=== PATIENT | male | born 1970 | race Caucasian/White ===

== ENCOUNTER 2020-12-17 15:30 | Observation (INO) | payer OTHER, SELFPAY ==
[2020-12-17] VITALS (10 sets, daily range): BP systolic 132–165; BP diastolic 74–99; PULSE 72–84; RESP 15–20; TEMP 36.7–36.9; O2SAT 96–100; BMI 38.0
--- NOTE | ~2020-12-17 | XR_ITS ---
XR chest 1V DATE: 12/17/2020 16:59 INDICATION: Dizziness TECHNIQUE: AP view COMPARISON: 11/10/2014 2 view chest FINDINGS: Normal heart size. No hilar or mediastinal enlargement. No pulmonary infiltrate or consol idation, pulmonary vascular congestion or pleural effusion or pneumothorax. IMPRESSION: No active cardiopulmonary disease Reviewed, dictated and finalized at location B.
--- NOTE | ~2020-12-17 | CT_ITS ---
EXAMINATION: CT brain wo con EXAM DATE: 12/17/2020 16:52 INDICATION: Seizures and headache. Dizziness. TECHNIQUE: Spiral CT of the head was performed without contrast. Axial, coronal and sagittal images were reviewed. The dose-length product (DLP) for this examination was 681.00 mGy-cm. The exposure w as tailored according to patient size, and iterative reconstruction (ASIR) was used as additional dos e reduction technique. Comparison is made to prior examination from 07/02/2019. FINDINGS: There is no acute intraparenchymal hemorrhage. No evidence of intraparenchymal brain mass lesion. No evidence of acute infarction. There is no mass effect or midline shift. The ventricles are normal in size. There are no extra-axial collections. There are no acute calvarial fractures. T he orbits are unremarkable. Soft tissue is unremarkable. The visualized sinuses and mastoid air joe ls are well aerated. IMPRESSION: 1. No acute intracranial findings. Reviewed, dictated and finalized at location A.
[2020-12-17 15:37] LABS: Glucose Point of Care 386 mg/dl (65-105)
--- NOTE | 2020-12-17 15:51 | ECG_ITS ---
Measurements Intervals [place] Rate: 82 P: 31 GA: 171 QRS: -11 QRSD: 149 T: 14 QT: 383 QTc: 448 Interpretive Statements SINUS RHYTHM RIGHT BUNDLE BRANCH BLOCK BASELINE ARTIFACT- I, II, III, AVR, AVL, AVF, V2-V6 ABNORMAL ECG Electronically Signed On 12-17-2020 15:53:34 CDT by Goran Dodson D.O.
--- NOTE | 2020-12-17 15:51 | ED.SEIZURE ---
HPI - Seizure General Chief Complaint: Seizure Stated Complaint: Heat Exposure Time Seen by Provider: 12/17/20 15:47 Source: patient, family and RN notes reviewed Mode of arrival: wheelchair Limitations: no limitations History of Present Illness HPI Narrative: This is a 50 year old male with history of nonepileptic seizure, DM, PTSD who presents for evaluation of seizures. Patient's states patient was out boating today for 4 hours. She states she received a call from him stating he did not feel well. She states he was having nausea and vomiting. Staff was called out to his car and they states he was having seizure activity. They also states patient had another seizure once he got back to his room. They states patient was briefly unresponsive but started talking to them immediately. His states he has history of nonepileptic seizures that he has been evaluated for. She also reports he has chronic pain. Seizure History: Yes Related Data Home Medications Medication Instructions Recorded Confirmed acetaminophen 1,000 mg PO Q8-10H PRN 07/02/19 aspirin 81 mg PO DAILY 07/02/19 diclofenac sodium [Diclo Gel] 4 g TOPICAL QID 07/02/19 insulin glulisine U-100 75 unit SUBCUT DAILY 07/02/19 lactulose 20 g PO DAILY 07/02/19 liraglutide [Victoza 2-Felix] 1.8 mg SUBCUT DAILY 07/02/19 lovastatin 40 mg PO DAILY 07/02/19 metformin 2,000 mg PO 07/02/19 paroxetine HCl 30 mg PO QAM 07/02/19 prazosin 2 mg PO HS 07/02/19 risperidone [Risperdal] 0.25 mg PO DAILY 07/02/19 sildenafil 50 mg PO WEEKLY PRN 07/02/19 trazodone 200 mg PO HS 07/02/19 Allergies Allergy/AdvReac Type Severity Reaction Status Date / Time atorvastatin Allergy Unknown Verified 07/02/19 09:40 carvedilol [From Coreg] Allergy Unknown Verified 07/02/19 09:40 niacin Allergy Unknown Verified 07/02/19 09:40 [From Niaspan Extended-Release] pravastatin Allergy Unknown Verified 07/02/19 09:40 rosuvastatin Allergy Unknown Verified 07/02/19 09:40 simvastatin Allergy Unknown Verified 07/02/19 09:40 Shrimp Allergy Intermediate SWELLING Uncoded 07/02/19 09:40 HIVES Review of Systems Review of Systems: All systems reviewed & are unremarkable except as noted in HPI and below Constitutional: Constitutional: Denies chills, Reports fatigue and Denies fever(s) Cardiovascular: Cardiovascular: Denies chest pain Respiratory: Respiratory: Denies cough and Denies dyspnea Gastrointestinal: Gastrointestinal: Reports abdominal pain (from vomiting), Reports nausea and Reports vomiting Neurologic: Reports syncope and Reports headache(s) [facility] Past Medical History Medical History Angina at rest Anxiety Arthritis Back pain Depression Diverticulitis GERD (gastroesophageal reflux disease) Hypertension Kidney stones Liver disease PTSD (post-traumatic stress disorder) Seizures Sleep apnea Type 2 diabetes mellitus Surgical History Surgical History H/O inguinal hernia repair History of partial colectomy Social History Social History (Updated 07/02/19 @ 09:05 by Norma Jalloh) Smokeless tobacco user: chewing tobacco Exam Const: General: alert Other: oriented to person and place HENMT: Head: normocephalic and atraumatic Mouth: Yes Normal oral and palatal mucosa present, Yes lip normal, Yes oropharynx normal and Yes moist mucous membranes Eyes: EOM: EOMs intact bilaterally Chest: Chest palpation & inspection: normal inspection of the chest Resp: Effort & Inspection: normal respiratory effort and no retractions Auscultation: clear to auscultation bilaterally Cardio: Rate: regular rate Rhythm: regular rhythm Heart sounds: no murmurs GI: GI Palp: Yes Soft to palpation, No Tenderness to palpation present (GI) and No Guarding due to palpation present (GI) Auscultation: normal bowel sounds Back/Spine/Pelvis: B
[2020-12-17] MEDS: ONDANSETRON INJ 4 MG/2 ML VIAL IV PUSH (16:04)
[2020-12-17] MEDS: SODIUM CHLORIDE 0.9% IV 1,000 ML 999 ML IV CONT ×2 (16:04→17:22)
[2020-12-17 16:05] LABS: Basophils Absolute Auto 0.1 K/mm3 (0.0-0.1); Basophils Percent Auto 0.6 % (0.2-1.2); Eosinophils Percent Auto 0.2 % (0-4.4); Hematocrit 48.4 % (42.0-52.0); Hemoglobin 17.2 g/dL (14.0-18.0); Immature Granulocyte Absolute 0.06 K/mm3 (0.00-0.031); Immature Granulocyte Percent A 0.7 % (0-0.5); Lymphocytes Absolute Auto 1.28 K/mm3 (0.9-3.2); Lymphocytes Percent Auto 14.5 % (18.3-44.2); Mean Corpuscular HGB Conc 35.5 g/dl (32-36); Mean Corpuscular Hemoglobin 31.6 pg (26-34); Mean Platelet Volume 10.2 fl (7.4-10.4); Monocytes Absolute Auto 0.5 K/mm3 (0.1-0.6); Monocytes Percent Auto 5.2 % (2.6-8.5); Neutrophils Percent Auto 78.8 % (45.5-73.1); Platelet Count Result 216 k/mm3 (150-375); Red Blood Count 5.44 M/mm3 (4.6-6.20); Red Cell Distribution Width 12.5 % (11.5-14.5); White Blood Count 8.9 K/mm3 (4.5-10.0)
[2020-12-17] MEDS: LORazepam INJ (*CRX) 2 MG/ML VIAL (16:15)
[2020-12-17 16:16] LABS: Creatine Kinase 55 U/L (55-170); Ethanol < 10 mg/dL (<10)
--- NOTE | 2020-12-17 16:16 | PC.NURSE ---
patient given 2mg Ativan per EDP verbal order.
[2020-12-17 16:18] LABS: Alanine Aminotransferase 35 U/L (4-50); Albumin Level 4.7 g/dL (3.5-5.1); Alkaline Phosphatase 191 U/L (38-126); Anion Gap 12 mmol/L (8-16); Aspartate Amino Transferase 38 U/L (17-59); Bilirubin,Total 0.6 mg/dL (0.2-1.3); Blood Urea Nitrogen 11 mg/dL (9-20); Calcium 10.1 mg/dL (8.4-10.2); Carbon Dioxide 24 mmol/L (22-30); Chloride 101 mmol/L (98-107); Estimated CRCL calculation 132 ml/min; Estimated Glomerular Filt Rate > 60; Glucose 373 mg/dL (75-110); Lipase 151 U/L (23-300); Magnesium 1.6 mg/dL (1.6-2.3); Partial Thromboplastin Time 27.5 SECONDS (22.3-36.8); Potassium 4.5 mmol/L (3.4-5.0); Prothrombin Time 13.6 Seconds (11.1-14.7); Sodium 137 mmol/L (137-145)
[2020-12-17 16:41] LABS: Alveolar/Arterial O2 Gradient 30.3 mmHg; Carboxyhemoglobin 0.9 % THb (0-2.0); Fractional Inspired Oxygen 21 %; HCO3 ABG 23.5 mEq/l (22.0-26.0); Methemoglobin ABG 0.3 %THb (0-1.5); Oxygen Saturation ABG 92.9 % (95.0-100.0); Oxyhemoglobin 92.2 % THb (90.0-100.0); PCO2 ABG 42.9 mmHg (35.0-45.0); PO2 ABG 68.1 mmHg (80.0-100.0); PO2 FiO2 Ratio Arterial Blood 3.24 %; Reduced Hemoglobin 6.6 %THb (0-5.0); Total Hemoglobin 16.2 g/dL (12.0-18.0); pH ABG 7.357 (7.350-7.450)
[2020-12-17 16:42] LABS: Device ROOM AIR; Modified Allen's Test Pass; Site Drawn LEFT RADIAL
[2020-12-17 17:10] LABS: Amphetamine Screen Urine Negative (Negative); Barbiturate Screen Urine Negative (Negative); Benzodiazepines Screen Urine Negative (Negative); Cannabinoid Screen Urine Positive (Negative); Cocaine Screen Urine Negative (Negative); Methadone Screen Urine Negative (Negative); Opiate Screen Urine Negative (Negative); Phencyclidine Screen Urine Negative (Negative)
[2020-12-17 17:12] LABS: Add Urine Microscopic? YES; Appearance Urine Clear (Clear); Bilirubin Urine Negative (Negative); Blood Urine Negative (Negative); Color Urine Yellow (Yellow); Glucose Urine UA 3+ mg/dL (Negative); Ketones Urine Trace mg/dL (Negative); Leukocyte Esterase Ur Negative LEU/UL (Negative); Mucus Urine Rare /lpf; Nitrate Urine Negative (Negative); Protein Urine Negative (Negative); Squamous Epithelial Cell Urine Few /hpf (Few); Urobilinogen Urine Negative mg/dL (<2.0); WBC Urine 0-3 /hpf
[2020-12-17 17:15] LABS: Specific Grav Ur 1.036 (1.001-1.035)
--- NOTE | 2020-12-17 17:24 | PC.NURSE ---
[facility] called for bed status per be utilization no beds available
[2020-12-17 17:53] LABS: Glucose Point of Care 254 mg/dl (65-105)
--- NOTE | 2020-12-17 19:22 | PC.NURSE ---
Called to give report, shift change report still going on. Floor will call ED to get report.
--- NOTE | 2020-12-17 20:16 | ADMGEN ---
This patient, Jc Herring, was admitted to Medical Room 341-01. Patient/family oriented to hospital policies and general routines including ID bracelet, bed and alarms, visiting hours, pain management, procedures, bathroom and other care routines, personal items, smoking policy, room service/diet, and visiting hours. Information on how to activate the Rapid Response Team has been discussed. Patient/Family are encouraged to report perceived risks to care and to ask questions if they do not understand what they are told or what they should do.
[2020-12-17] MEDS: SODIUM CHLORIDE 0.9% IV 1,000 ML 125 ML IV CONT (20:53)
[2020-12-17 23:11] LABS: Glucose Point of Care 211 mg/dl (65-105)
[2020-12-18] VITALS (7 sets, daily range): BP systolic 132–137; BP diastolic 55–66; PULSE 70–84; RESP 16–18; TEMP 36.4–36.5; O2SAT 96–100
[2020-12-18] MEDS: diphenhydrAMINE HCl CAP 25 MG CAPSULE 50 MG PO (00:28)
[2020-12-18] MEDS: traZODone HCL 50 MG TABLET 200 MG PO (00:29)
[2020-12-18] MEDS: metFORMIN HCL XR 500 MG TAB.SR.24H 2000 MG PO (00:29)
[2020-12-18] MEDS: PRAZOSIN HCL 1 MG CAPSULE 2 MG PO (00:29)
[2020-12-18 06:22] LABS: Basophils Percent Auto 0.4 % (0.2-1.2); Eosinophils Absolute Auto 0.1 K/mm3 (0-0.3); Eosinophils Percent Auto 1.3 % (0-4.4); Hematocrit 41.7 % (42.0-52.0); Hemoglobin 14.2 g/dL (14.0-18.0); Immature Granulocyte Absolute 0.03 K/mm3 (0.00-0.031); Immature Granulocyte Percent A 0.4 % (0-0.5); Lymphocytes Absolute Auto 2.04 K/mm3 (0.9-3.2); Lymphocytes Percent Auto 25.7 % (18.3-44.2); Mean Corpuscular HGB Conc 34.1 g/dl (32-36); Mean Corpuscular Hemoglobin 31.8 pg (26-34); Mean Corpuscular Volume 93.5 fl (80-100); Mean Platelet Volume 10.1 fl (7.4-10.4); Monocytes Absolute Auto 0.7 K/mm3 (0.1-0.6); Monocytes Percent Auto 8.4 % (2.6-8.5); Neutrophils Absolute Auto 5.1 K/mm3 (1.3-6.7); Neutrophils Percent Auto 63.8 % (45.5-73.1); Platelet Count Result 182 k/mm3 (150-375); Red Blood Count 4.46 M/mm3 (4.6-6.20); Red Cell Distribution Width 12.4 % (11.5-14.5)
[2020-12-18 06:39] LABS: Alanine Aminotransferase 25 U/L (4-50); Albumin Level 3.5 g/dL (3.5-5.1); Alkaline Phosphatase 146 U/L (38-126); Anion Gap 6 mmol/L (8-16); Aspartate Amino Transferase 27 U/L (17-59); Bilirubin,Total 0.3 mg/dL (0.2-1.3); Blood Urea Nitrogen 11 mg/dL (9-20); Calcium 8.8 mg/dL (8.4-10.2); Carbon Dioxide 27 mmol/L (22-30); Chloride 105 mmol/L (98-107); Estimated CRCL calculation 147 ml/min; Estimated Glomerular Filt Rate > 60; Glucose 166 mg/dL (75-110); Potassium 4.2 mmol/L (3.4-5.0); Sodium 138 mmol/L (137-145)
[2020-12-18 08:52] LABS: Glucose Point of Care 185 mg/dl (65-105)
--- NOTE | 2020-12-18 08:52 | PM.IMHP ---
Review of Systems Review of Systems: All systems reviewed & are unremarkable except as noted in HPI and below PMFSH Past Medical History Medical History Angina at rest Anxiety Arthritis Back pain Depression Diverticulitis GERD (gastroesophageal reflux disease) Hypertension Kidney stones Liver disease PTSD (post-traumatic stress disorder) Seizures Sleep apnea Type 2 diabetes mellitus Surgical History Surgical History H/O inguinal hernia repair History of partial colectomy Family History Family History Mother History of blood clots Diabetes mellitus Sibling Cerebrovascular accident Father Hypertension Prostate carcinoma Social History Social History Smoking status: Former smoker Tobacco type: cigarettes Smokeless tobacco user: chewing tobacco Alcohol intake: never Substance use: never Gender identity (if verbalized by the patient): Male Spiritual care concerns: No Meds Home Medications and Allergies Home Medications Medication Instructions Recorded Confirmed Type acetaminophen 1,000 mg PO Q8-10H PRN 07/02/19 12/17/20 History aspirin 81 mg PO DAILY 07/02/19 12/17/20 History insulin glulisine U-100 76 unit SUBCUT HS 07/02/19 12/17/20 History lactulose 20 g PO EVERY OTHER DAY 07/02/19 12/17/20 History liraglutide [Victoza 2-Felix] 1.2 mg SUBCUT DAILY 07/02/19 12/17/20 History metformin 2,000 mg PO HS 07/02/19 12/17/20 History prazosin 2 mg PO HS 07/02/19 12/17/20 History sildenafil 50 mg PO WEEKLY PRN 07/02/19 12/17/20 History trazodone 200 mg PO HS 07/02/19 12/17/20 History diphenhydramine HCl [Benadryl] 50 mg PO HS 12/17/20 12/17/20 History lorazepam 2 mg PO TID PRN 12/17/20 12/17/20 History Allergies Allergy/AdvReac Type Severity Reaction Status Date / Time Iodine and Iodide Containing Allergy Severe HIVES, Verified 12/18/20 14:12 Produc SWELLING shellfish derived Allergy Severe Hives,SWELL Verified 12/18/20 14:12 ING atorvastatin Allergy Unknown Verified 07/02/19 09:40 carvedilol [From Coreg] Allergy Unknown Verified 07/02/19 09:40 niacin Allergy Unknown Verified 07/02/19 09:40 [From Niaspan Extended-Release] pravastatin Allergy Unknown Verified 07/02/19 09:40 rosuvastatin Allergy Unknown Verified 07/02/19 09:40 simvastatin Allergy Unknown Verified 07/02/19 09:40 Vital Signs Vital Signs - 24 hr 12/17/20 15:37 12/17/20 15:46 12/17/20 16:05 Temperature 98.5 F Pulse Rate 83 82 78 Respiratory Rate 20 16 Blood Pressure 132/99 H 139/74 Pulse Oximetry 98 97 12/17/20 16:40 12/17/20 18:14 12/17/20 18:44 Temperature Pulse Rate 84 82 73 Respiratory Rate 18 17 17 Blood Pressure 163/85 H 137/82 155/83 H Pulse Oximetry 98 97 96 12/17/20 19:16 12/17/20 19:31 12/17/20 20:00 Temperature Pulse Rate 77 76 76 Respiratory Rate 15 17 Blood Pressure 142/82 H 150/87 H Pulse Oximetry 97 12/17/20 20:14 12/18/20 00:00 12/18/20 04:07 Temperature 98.0 F Pulse Rate 72 77 84 Respiratory Rate 18 Blood Pressure 165/89 H Pulse Oximetry 100 Exam Const: General: comfortable and no acute distress HENMT: Mouth: Yes moist mucous membranes Eyes: General: appearance normal, both eyes and all related structures Sclera: sclerae normal EOM: EOMs intact bilaterally Neck: Neck: supple and no JVD Resp: Auscultation: clear to auscultation bilaterally Cardio: Rate: regular rate Rhythm: regular rhythm GI: GI Palp: Yes Soft to palpation Auscultation: normal bowel sounds Other: nontender Skin: General skin exam: normal color and no rashes or lesions noted Wounds: no wounds Neuro: Cognition (Neuro): normal cognition Speech: normal speech Motor exam (neuro): 5/5 motor strength present throughout and Normal motor muscle tone presen
[2020-12-18] MEDS: LORazepam (*CRX) 1 MG TABLET 2 MG PO (10:22)
[2020-12-18] MEDS: ASPIRIN 81 MG ENTERIC TABLET PO (10:22)
[2020-12-18 11:04] LABS: Magnesium 1.6 mg/dL (1.6-2.3)
[2020-12-18 11:46] LABS: Glucose Point of Care 324 mg/dl (65-105)
[2020-12-18] MEDS: INSULIN ASPART (*BKC) 100 UNITS/ML SUB-Q ×2 (12:07→16:50)
--- NOTE | 2020-12-18 14:12 | PHAR ---
HOME MED Liraglutide [Victoza] 1.2MG/0.2ML Pen Injector has been verified.
--- NOTE | 2020-12-18 14:22 | WPDNEUROLOGY ---
Neurology EEG Report General Information Date of Study: 12/18/20 TEST EEG DIAGNOSIS seizures CONDITION OF RECORDING awake drowsy and sleep EEG NUMBER [id number] CLINICAL HISTORY patient had an episode of shaking and moaning that lasted for about 2 minutes during the setup of this tracing, he called and talked to his immediately afterwards. EEG DESCRIPTION Basic resting occipital frequency consists of low to medium voltage 8 to 10 hertz per second alpha admixed with low-voltage 15 to 18 hertz per second beta posteriorly. During drowsiness low-voltage beta activity seen diffusely admixed with intermittent 8 to 10 hertz per second alpha posteriorly. 6 to 7 hertz per second theta is seen intermittently during drowsiness. Bilateral symmetrical sleep activity seen during sleep. Hyperventilation not done. Photic stimulation not done. Non paroxysmal. Nonfocal. Nonlateralizing. IMPRESSION No significant abnormalities noted, particularly there is no evidence of any paroxysmal activity throughout the tracing
--- NOTE | 2020-12-18 15:32 | WPDNEURCNPN ---
Assessment and Plan Assessment and plan (1) Observed seizure-like activity: Code(s): R56.9 - Unspecified convulsions Status: Acute (2) History of pseudoseizure: Code(s): Z86.69 - Personal history of other diseases of the nervous system and sense organs Status: Acute (3) Type 2 diabetes mellitus: Code(s): E11.9 - Type 2 diabetes mellitus without complications Status: Acute (4) Acute hyperglycemia: Code(s): R73.9 - Hyperglycemia, unspecified Status: Acute Additional Plan questionable seizure Consult date: 12/18/20 Time Seen: 15:00 HPI: Jc Herring is a 50 year old male admitted to the hospital with the complaint of syncopal episode which occurred in the morning as per the information available from the patient's patient began to vomit at 3:00 a.m. in the morning and subsequently felt lethargic in addition he has several syncopal episodes and hit his head patient does have past medical history of diabetes mellitus with posttraumatic stress disorder and has been taking medication for hypercholesterolemia which unfortunately resulted in him to have a chest pain patient does have ongoing history of anxiety, arthritis, back pain, depression, hypertension, retic disease, and posttraumatic disorder in addition to seizures sleep apnea and type 2 diabetes mellitus. Evaluation up until now includes a routine CBC normal BMP except the blood sugar of 324 negative UA with 3+ glycosuria otherwise and toxicology screen positive for the cannabinoids, initial CT scan of the head negative, so as the x-ray chest Review of Systems Review of Systems: All systems reviewed & are unremarkable except as noted in HPI and below PMFSH Past Medical History Medical History Angina at rest Anxiety Arthritis Back pain Depression Diverticulitis GERD (gastroesophageal reflux disease) Hypertension Kidney stones Liver disease PTSD (post-traumatic stress disorder) Seizures Sleep apnea Type 2 diabetes mellitus Surgical History Surgical History H/O inguinal hernia repair History of partial colectomy Family History Family History Mother History of blood clots Diabetes mellitus Sibling Cerebrovascular accident Father Hypertension Prostate carcinoma Social History Social History Smoking status: Former smoker Tobacco type: cigarettes Smokeless tobacco user: chewing tobacco Alcohol intake: never Substance use: never Gender identity (if verbalized by the patient): Male Spiritual care concerns: No Meds Home Medications and Allergies Home Medications Medication Instructions Recorded Confirmed Type acetaminophen 1,000 mg PO Q8-10H PRN 07/02/19 12/17/20 History aspirin 81 mg PO DAILY 07/02/19 12/17/20 History insulin glulisine U-100 76 unit SUBCUT HS 07/02/19 12/17/20 History lactulose 20 g PO EVERY OTHER DAY 07/02/19 12/17/20 History liraglutide [Victoza 2-Felix] 1.2 mg SUBCUT DAILY 07/02/19 12/17/20 History metformin 2,000 mg PO HS 07/02/19 12/17/20 History prazosin 2 mg PO HS 07/02/19 12/17/20 History sildenafil 50 mg PO WEEKLY PRN 07/02/19 12/17/20 History trazodone 200 mg PO HS 07/02/19 12/17/20 History diphenhydramine HCl [Benadryl] 50 mg PO HS 12/17/20 12/17/20 History lorazepam 2 mg PO TID PRN 12/17/20 12/17/20 History Allergies Allergy/AdvReac Type Severity Reaction Status Date / Time Iodine and Iodide Containing Allergy Severe HIVES, Verified 12/18/20 14:12 Produc SWELLING shellfish derived Allergy Severe Hives,SWELL Verified 12/18/20 14:12 ING atorvastatin Allergy Unknown Verified 07/02/19 09:40 carvedilol [From Coreg] Allergy Unknown Verified 07/02/19 09:40 niacin Allergy Unknown Verified 07/02/19 09:40 [From Niaspan Extended-Release] pra
--- NOTE | 2020-12-18 16:41 | PM.SD2 ---
Same Day Admit/Disch: HPI History of Present Illness Chief complaint: syncope vs seizure, hyperglycemia Narrative: Jc Herring is a 50 year old male Who presents to the emergency room with complaint of nausea vomiting and feeling overheated after being out fishing. He also reported symptoms consistent with vasovagal episodes. Patient was going to be discharged the emergency room, however ,he suddenly developed a seizure and his admission is recommended for further workup. Upon careful Review of history of the patient he is noted to have history of nonepileptic seizures, pseudoseizures. He states that these are associated with his PTSD, He is a [employer] . Patient further elaborates state that when he feels very anxious he said he has seizure-like activity and then he feels calm. [facility]. At the time my interview he denies any symptoms and has returned to baseline. symptoms of nausea vomiting and feeling overheated have resolved. He has had no further seizure-like activity. He has had no further dizziness lightheadedness o vasovagal symptoms. review of systems negative for palpitations, fever, chills, diarrhea, headache, vision changes or other significant symptoms. [facility] Past Medical History Medical History (Updated 12/21/20 @ 05:51 by Heather Clemente MD) Angina at rest Anxiety Arthritis Back pain Depression Diverticulitis GERD (gastroesophageal reflux disease) Hypertension Kidney stones Liver disease PTSD (post-traumatic stress disorder) Seizures Sleep apnea Type 2 diabetes mellitus Surgical History Surgical History H/O inguinal hernia repair History of partial colectomy Family History Family History Mother History of blood clots Diabetes mellitus Sibling Cerebrovascular accident Father Hypertension Prostate carcinoma Social History Social History Smoking status: Former smoker Tobacco type: cigarettes Smokeless tobacco user: chewing tobacco Alcohol intake: never Substance use: never Gender identity (if verbalized by the patient): Male Spiritual care concerns: No Same Day Admit/Disch: Med Pre-admit Medications Home Medications Medication Instructions Recorded Confirmed Type Victoza 2-Felix 1.2 mg SUBCUT DAILY 07/02/19 12/17/20 History acetaminophen 1,000 mg PO Q8-10H PRN 07/02/19 12/17/20 History aspirin 81 mg PO DAILY 07/02/19 12/17/20 History insulin glulisine U-100 76 unit SUBCUT HS 07/02/19 12/17/20 History lactulose 20 g PO EVERY OTHER DAY 07/02/19 12/17/20 History metformin 2,000 mg PO HS 07/02/19 12/17/20 History prazosin 2 mg PO HS 07/02/19 12/17/20 History sildenafil 50 mg PO WEEKLY PRN 07/02/19 12/17/20 History trazodone 200 mg PO HS 07/02/19 12/17/20 History diphenhydramine HCl 50 mg PO HS 12/17/20 12/17/20 History lorazepam 2 mg PO TID PRN 12/17/20 12/17/20 History Exam Const: General: cooperative, comfortable, no acute distress, well developed and well groomed Nutritional Appearance: obese Orientation/consciousness: patient oriented x3 Limitations: no limitations HENMT: Head: normal to inspection, normocephalic and atraumatic Ears: hearing grossly normal bilaterally General nose exam: Normal external nose present Face and sinus: normal facial exam and face symmetric Mouth: Yes moist mucous membranes Eyes: Eyelids: eyelids normal Conjunctivae: conjunctivae normal Sclera: sclerae normal EOM: EOMs intact bilaterally Neck: Neck: normal visual inspection, supple and no JVD Chest: Chest palpation & inspection: normal inspection of the chest Resp: Effort & Inspection: normal respiratory effort and able to speak in complete sentences Auscultation: clear to auscultation bilaterally Cardio: Rate: regular rate Rhythm: regular rhythm H
[2020-12-18 16:47] LABS: Glucose Point of Care 274 mg/dl (65-105)
== END 2020-12-18 19:34 | disposition home or self-care (01) ==
LOC: ANHED 17:27 → ANH3MED 21:24
PROVIDERS: Admitting Provider Family Medicine; Emergency Provider General Practice; Visit Provider Hospitalist
DX: R56.9 Unspecified convulsions (principal); R55 Syncope and collapse; E86.0 Dehydration; E11.65 Type 2 diabetes mellitus with hyperglycemia; F43.10 Post-traumatic stress disorder, unspecified; Z87.891 Personal history of nicotine dependence; Z79.4 Long term (current) use of insulin
CPT/HCPCS: 36415; 36600; 70450; 71045; 80053; 80307; 81001; 82375; 82550; 82805; 82948; 83050; 83690; 83735; 85025; 85610; 85730; 93005; 95816; 96361; 96374; 96375; 99285; A9270; G0378; J1815; J2060; J2405; J7030

== ENCOUNTER 2021-02-22 17:25 | Emergency (ER) | payer OTHER, SELFPAY ==
--- NOTE | ~2021-02-22 | US_ITS ---
EXAMINATION: US scrotum doppler DATE: 02/22/2021 18:34 INDICATION: Pain, swelling, and lump of the right testicle. TECHNIQUE: Testicular sonogram utilizing grayscale and Doppler COMPARISON: None. FINDINGS: The right testis measures 3.3 x 2.5 x 3.6 cm. The left testis measures 4.0 x 2.5 x 3.2 cm. There is normal vascular flow to both testes. The right epididymis contains a 5 mm cyst or spermatoce le. No definite abnormality is seen to correlate with the right testicular lump. The left epididymis is normal with normal vascular flow. There is a small left hydrocele. IMPRESSION: 1. No sonographic correlate for the patient's symptoms. 2. 5 mm cyst or spermatocele of the right epididymis. 3. Small left hydrocele. Reviewed, dictated and finalized at location A.
[2021-02-22 17:56] VITALS: BP 148/89; PULSE 81; RESP 18; TEMP 36.7; O2SAT 98
--- NOTE | 2021-02-22 22:21 | ED.MALEGU ---
HPI - Male Genitourinary General Chief complaint: Urogenital-Male Stated complaint: Testicular Pain Time Seen by Provider: 02/22/21 21:03 History of Present Illness HPI Narrative: Patient is a 50-year-old male who presents ER with pain to his right testicle. Ongoing over the last 2 to 3 days. Today radiated into his thigh which concerned him. Has history of inguinal hernia repair from being a child on the same side. No swelling or fevers. No known trauma. No dysuria or urinary frequency urgency. He does think he had some blood in his urine couple days ago but that has resolved. Patient is currently not sexually active due to erectile dysfunction. He has follow-up scheduled with a urologist in early March regarding that issue. Related Data Home Medications Medication Instructions Recorded Confirmed Victoza 2-Felix 1.2 mg SUBCUT DAILY 07/02/19 12/17/20 acetaminophen 1,000 mg PO Q8-10H PRN 07/02/19 12/17/20 aspirin 81 mg PO DAILY 07/02/19 12/17/20 insulin glulisine U-100 76 unit SUBCUT HS 07/02/19 12/17/20 lactulose 20 g PO EVERY OTHER DAY 07/02/19 12/17/20 metformin 2,000 mg PO HS 07/02/19 12/17/20 prazosin 2 mg PO HS 07/02/19 12/17/20 sildenafil 50 mg PO WEEKLY PRN 07/02/19 12/17/20 trazodone 200 mg PO HS 07/02/19 12/17/20 diphenhydramine HCl 50 mg PO HS 12/17/20 12/17/20 lorazepam 2 mg PO TID PRN 12/17/20 12/17/20 Allergies Allergy/AdvReac Type Severity Reaction Status Date / Time Iodine and Iodide Containing Allergy Severe HIVES, Verified 12/18/20 14:12 Produc SWELLING shellfish derived Allergy Severe Hives,SWELL Verified 12/18/20 14:12 ING Review of Systems Review of Systems: All systems reviewed & are unremarkable except as noted in HPI and below Constitutional: Constitutional: Denies chills, Denies fever(s) and Denies weakness Cardiovascular: Cardiovascular: Denies chest pain and Denies radiating jaw, neck or arm pain Gastrointestinal: Gastrointestinal: Denies abdominal pain, Denies nausea and Denies vomiting Genitourinary: Genitourinary: Reports hematuria, Denies genital lesions, Denies dysuria, Denies penile discharge, Reports testicular pain and Denies urinary frequency [facility] Past Medical History Medical History (Updated 02/22/21 @ 23:07 by Néo Rosario MD) Angina at rest Anxiety Arthritis Back pain Depression Diverticulitis GERD (gastroesophageal reflux disease) Hypertension Kidney stones Liver disease PTSD (post-traumatic stress disorder) Seizures Sleep apnea Type 2 diabetes mellitus Surgical History Surgical History H/O inguinal hernia repair History of partial colectomy Family History Family History Mother History of blood clots Diabetes mellitus Sibling Cerebrovascular accident Father Hypertension Prostate carcinoma Social History Social History Smoking status: Former smoker Tobacco type: cigarettes Smokeless tobacco user: chewing tobacco Alcohol intake: never Substance use: never Gender identity (if verbalized by the patient): Male Spiritual care concerns: No Exam Narrative: Exam Narrative: GENERAL: Well-appearing, well-nourished, and in no acute distress. HEAD: Normocephalic, atraumatic. EXTREMITIES: Normal range of motion. No edema. : Normal external genitalia without urethral discharge. Tender palpation over the epididymis and spermatic cord on the right side without swelling or redness or edema. Nontender left testicle/epididymis. Some mild discomfort in the right inguinal canal without palpable hernia. Scar noted. SKIN: Warm, dry, no rash. NEURO: Alert and oriented x3. PSYCH: Normal mood and affect. Course Course Emergency Course: Informed results. Images placed on disc for the patient to take to his urology appointment. Recommend wearing a tighter fitting jockstrap and ayanna
[2021-02-22 22:30] LABS: Add Urine Microscopic? YES; Appearance Urine Clear (Clear); Bilirubin Urine Negative (Negative); Blood Urine Negative (Negative); Color Urine Yellow (Yellow); Glucose Urine UA 3+ mg/dL (Negative); Ketones Urine Negative (Negative); Leukocyte Esterase Ur Negative LEU/UL (Negative); Mucus Urine Rare /lpf; Nitrate Urine Negative (Negative); Protein Urine Negative (Negative); RBC Urine 0-2 /hpf (0-2); Squamous Epithelial Cell Urine Rare /hpf (Few); Urobilinogen Urine Negative mg/dL (<2.0); WBC Urine 0-3 /hpf
[2021-02-22] MEDS: HYDROcodone/acetaminophen (*CRX) 5-325 MG TABLET 1 TAB PO (22:45)
[2021-02-22 22:52] LABS: Specific Grav Ur 1.033 (1.001-1.035)
== END 2021-02-22 23:40 | disposition home or self-care (01) ==
PROVIDERS: Emergency Provider Emergency Medicine
DX: N50.811 Right testicular pain (principal); I10 Essential (primary) hypertension; K76.9 Liver disease, unspecified; E11.9 Type 2 diabetes mellitus without complications; G47.30 Sleep apnea, unspecified; K21.9 Gastro-esophageal reflux disease without esophagitis; M19.90 Unspecified osteoarthritis, unspecified site; F43.10 Post-traumatic stress disorder, unspecified; F41.9 Anxiety disorder, unspecified; F32.9 Major depressive disorder, single episode, unspecified; Z79.4 Long term (current) use of insulin; Z79.82 Long term (current) use of aspirin; Z87.442 Personal history of urinary calculi; Z87.891 Personal history of nicotine dependence; N43.3 Hydrocele, unspecified; R93.89 Abnormal findings on diagnostic imaging of other specified body structures
CPT/HCPCS: 76870; 81001; 93976; 99284; A9270

== ENCOUNTER 2021-03-31 18:12 | Emergency (ER) | payer OTHER, SELFPAY ==
--- NOTE | ~2021-03-31 | CT_ITS ---
EXAMINATION: CT facial & cervical spine wo DATE: 03/31/2021 19:33 INDICATION: Head injury. Neck pain. TECHNIQUE: Computed tomography (CT) of the maxillofacial region and cervical spine was performed with out intravenous contrast. Automated exposure control and iterative reconstruction technique were empl oyed. The dose-length product was 608.08 mGy-cm. COMPARISON: CT cervical spine 04/18/2016 FINDINGS: MAXILLOFACIAL CT: There is rightward deviation of the nasal septum. No fracture. There is mild mucosal thickening in th e paranasal sinuses. The orbits are normal. The mastoid air cells are normal. CERVICAL SPINE CT: There is 7 degrees levocurvature of cervical spine. Vertebral body heights and intervertebral disc he ights are normal. The following disc levels are specifically discussed: C2-C3: There is no uncovertebral joint osteoarthritis. There is mild bilateral facet joint osteoarthr itis. There is no neural foraminal stenosis. There is no central canal stenosis. C3-C4: There is no uncovertebral joint osteoarthritis. There is moderate right and mild left facet yuri int osteoarthritis. There is no neural foraminal stenosis. There is mild central canal stenosis. C4-C5: There is no uncovertebral joint osteoarthritis. There is mild right facet joint osteoarthritis . There is no neural foraminal stenosis. There is mild central canal stenosis. C5-C6: There is no uncovertebral joint osteoarthritis. There is mild bilateral facet joint osteoarthr itis. There is no neural foraminal stenosis. There is mild central canal stenosis. C6-C7: There is no uncovertebral joint osteoarthritis. There is moderate bilateral facet joint osteoa rthritis. There is no neural foraminal stenosis. There is mild central canal stenosis. C7-T1: There is no uncovertebral joint osteoarthritis. There is severe bilateral facet joint osteoart hritis. There is mild right neural foraminal stenosis. There is no central canal stenosis. IMPRESSION: 1. No fracture. 2. Mild cervical spondylosis. Reviewed, dictated and finalized at location A.
--- NOTE | ~2021-03-31 | CT_ITS ---
EXAMINATION: CT brain wo con DATE: 03/31/2021 19:33 INDICATION: Syncope. Head injury. TECHNIQUE: Computed tomography (CT) of the head was performed without intravenous contrast. The mA wa s adjusted according to patient size. Iterative reconstruction technique was employed. The dose-lengt h product was 681.00 mGy-cm. COMPARISON: Head CT 12/17/2020 FINDINGS: There is no intracranial hemorrhage, acute infarction, or abnormal intracranial mass lesion . The ventricles are normal in size. The orbits are normal. There is mild mucosal thickening in the e thmoid sinuses. The mastoid air cells are normal. IMPRESSION: 1. Normal brain. Reviewed, dictated and finalized at location A. IMPRESSION: 1. Normal brain.
--- NOTE | ~2021-03-31 | XR_ITS ---
EXAMINATION: XR chest 1V portable DATE: 03/31/2021 18:52 INDICATION: Weakness. Transient alteration of awareness. TECHNIQUE: A single frontal view of the chest was obtained. COMPARISON: Chest single view 12/17/2020 FINDINGS: The lung volumes are small. No pneumonia, pleural effusion, or pneumothorax. The heart size is normal. IMPRESSION: 1. Small lung volumes. Reviewed, dictated and finalized at location A. IMPRESSION: 1. Small lung volumes.
--- NOTE | 2021-03-31 18:39 | ECG_ITS ---
Measurements Intervals [place] Rate: 50 P: 31 [place]: 195 QRS: -5 QRSD: 152 T: 17 QT: 443 QTc: 404 Interpretive Statements SINUS BRADYCARDIA RIGHT BUNDLE BRANCH BLOCK BASELINE ARTIFACT- II, III, AVR, AVF, V2-V6 ABNORMAL ECG Electronically Signed On 04-01-2021 6:14:55 CDT by Goran Dodson D.O.
--- NOTE | 2021-03-31 18:45 | ED.FALL ---
HPI - Fall General Chief Complaint: Syncope Stated Complaint: fall/hi/loc/vomiting Time Seen by Provider: 03/31/21 18:32 Source: patient, family, RN notes reviewed and old records reviewed Mode of arrival: wheelchair History of Present Illness HPI Narrative: This is a 50 year old male with history of pseudoseizures, PTSD, and DM who presents for evaluation of head injury. His family states patient was trying to get out of bed and he fell forward hitting left side of his face. Patient has been having nausea and vomiting since his fall 1 hour ago. She is complaining of neck pain, weakness, and left facial pain. PAtient thinks he wet himself. He is unsure if he loss consciousness. Related Data Home Medications Medication Instructions Recorded Confirmed Victoza 2-Felix 1.2 mg SUBCUT DAILY 07/02/19 12/17/20 acetaminophen 1,000 mg PO Q8-10H PRN 07/02/19 12/17/20 aspirin 81 mg PO DAILY 07/02/19 12/17/20 insulin glulisine U-100 76 unit SUBCUT HS 07/02/19 12/17/20 lactulose 20 g PO EVERY OTHER DAY 07/02/19 12/17/20 metformin 2,000 mg PO HS 07/02/19 12/17/20 prazosin 2 mg PO HS 07/02/19 12/17/20 sildenafil 50 mg PO WEEKLY PRN 07/02/19 12/17/20 trazodone 200 mg PO HS 07/02/19 12/17/20 diphenhydramine HCl 50 mg PO HS 12/17/20 12/17/20 lorazepam 2 mg PO TID PRN 12/17/20 12/17/20 Allergies Allergy/AdvReac Type Severity Reaction Status Date / Time Iodine and Iodide Containing Allergy Severe HIVES, Verified 12/18/20 14:12 Produc SWELLING shellfish derived Allergy Severe Hives,SWELL Verified 12/18/20 14:12 ING Review of Systems Review of Systems: All systems reviewed & are unremarkable except as noted in HPI and below Constitutional: Constitutional: Denies chills, Denies fever(s) and Reports weakness Eyes: Eyes: Denies change in vision Cardiovascular: Cardiovascular: Denies chest pain Respiratory: Respiratory: Denies cough and Denies dyspnea Gastrointestinal: Gastrointestinal: Denies abdominal pain, Reports nausea and Reports vomiting PMFSH Past Medical History Medical History Angina at rest Anxiety Arthritis Back pain Depression Diverticulitis GERD (gastroesophageal reflux disease) Hypertension Kidney stones Liver disease PTSD (post-traumatic stress disorder) Seizures Sleep apnea Type 2 diabetes mellitus Surgical History Surgical History H/O inguinal hernia repair History of partial colectomy Family History Family History Mother History of blood clots Diabetes mellitus Sibling Cerebrovascular accident Father Hypertension Prostate carcinoma Social History Social History Smoking status: Former smoker Tobacco type: cigarettes Smokeless tobacco user: chewing tobacco Alcohol intake: never Substance use: never Gender identity (if verbalized by the patient): Male Spiritual care concerns: No Exam Const: Other: patient is sitting with eyes closed lethargic HENMT: Head: normocephalic and atraumatic General nose exam: Normal external nose present, Normal nares present and No nasal polyps present Face and sinus: normal facial exam, sinuses nontender and face symmetric Mouth: Yes Normal oral and palatal mucosa present, Yes lip normal, Yes oropharynx normal and Yes moist mucous membranes Eyes: Pupils: Equal, round and reactive pupils present EOM: EOMs intact bilaterally Resp: Effort & Inspection: normal respiratory effort and no retractions Auscultation: clear to auscultation bilaterally Cardio: Rate: regular rate Rhythm: regular rhythm Heart sounds: no murmurs GI: GI Palp: Yes Soft to palpation, No Tenderness to palpation present (GI) and No Guarding due to palpation present (GI) Auscultation: normal bowel sounds Neuro: Other: patient able to move hands and feet
[2021-03-31 18:53] VITALS: BP 171/98; PULSE 58; RESP 19; TEMP 36.8; O2SAT 99
[2021-03-31 19:00] VITALS: PULSE 55
[2021-03-31 19:15] LABS: Basophils Percent Auto 0.5 % (0.2-1.2); Eosinophils Absolute Auto 0.1 K/mm3 (0-0.3); Eosinophils Percent Auto 0.9 % (0-4.4); Hematocrit 45.8 % (42.0-52.0); Hemoglobin 15.9 g/dL (14.0-18.0); Immature Granulocyte Absolute 0.04 K/mm3 (0.00-0.031); Immature Granulocyte Percent A 0.5 % (0-0.5); Lymphocytes Absolute Auto 1.64 K/mm3 (0.9-3.2); Lymphocytes Percent Auto 21.4 % (18.3-44.2); Mean Corpuscular HGB Conc 34.7 g/dl (32-36); Mean Corpuscular Hemoglobin 31.5 pg (26-34); Mean Corpuscular Volume 90.7 fl (80-100); Mean Platelet Volume 10.3 fl (7.4-10.4); Monocytes Absolute Auto 0.4 K/mm3 (0.1-0.6); Monocytes Percent Auto 5.7 % (2.6-8.5); Neutrophils Absolute Auto 5.4 K/mm3 (1.3-6.7); Platelet Count Result 192 k/mm3 (150-375); Red Blood Count 5.05 M/mm3 (4.6-6.20); Red Cell Distribution Width 12.5 % (11.5-14.5); White Blood Count 7.7 K/mm3 (4.5-10.0)
[2021-03-31] MEDS: SODIUM CHLORIDE 0.9% IV 1,000 ML 999 ML IV CONT (19:15)
[2021-03-31] MEDS: ONDANSETRON INJ 4 MG/2 ML VIAL IV PUSH (19:15)
[2021-03-31 19:17] LABS: Glucose Point of Care 222 mg/dl (65-105)
[2021-03-31 19:23] LABS: INR 0.9; Prothrombin Time 12.3 Seconds (11.1-14.7)
[2021-03-31 19:24] LABS: Partial Thromboplastin Time 28.9 SECONDS (22.3-36.8)
[2021-03-31 19:25] LABS: Ethanol < 10 mg/dL (<10)
[2021-03-31 20:19] VITALS: BP 157/73; PULSE 59; RESP 18; O2SAT 100
[2021-03-31 20:35] LABS: Add Urine Microscopic? YES; Appearance Urine Clear (Clear); Bilirubin Urine Negative (Negative); Blood Urine Negative (Negative); Color Urine Yellow (Yellow); Glucose Urine UA 3+ mg/dL (Negative); Ketones Urine Trace mg/dL (Negative); Leukocyte Esterase Ur Negative LEU/UL (Negative); Mucus Urine Rare /lpf; Nitrate Urine Negative (Negative); Protein Urine Negative (Negative); RBC Urine 0-2 /hpf (0-2); Specific Grav Ur 1.007 (1.001-1.035); Squamous Epithelial Cell Urine Rare /hpf (Few); Urobilinogen Urine Negative mg/dL (<2.0); WBC Urine 0-3 /hpf
[2021-03-31 20:48] LABS: Amphetamine Screen Urine Negative (Negative); Barbiturate Screen Urine Negative (Negative); Benzodiazepines Screen Urine Negative (Negative); Cannabinoid Screen Urine Positive (Negative); Cocaine Screen Urine Negative (Negative); Methadone Screen Urine Negative (Negative); Opiate Screen Urine Negative (Negative); Phencyclidine Screen Urine Negative (Negative)
[2021-03-31 21:22] VITALS: BP 139/77; PULSE 55; RESP 17; O2SAT 99
[2021-03-31 21:46] LABS: Alanine Aminotransferase 40 U/L (4-50); Alkaline Phosphatase 138 U/L (38-126); Anion Gap 11 mmol/L (8-16); Aspartate Amino Transferase 39 U/L (17-59); Bilirubin,Total 0.5 mg/dL (0.2-1.3); Blood Urea Nitrogen 9 mg/dL (9-20); Carbon Dioxide 28 mmol/L (22-30); Chloride 99 mmol/L (98-107); Estimated CRCL calculation 169 ml/min; Estimated Glomerular Filt Rate > 60; Glucose 199 mg/dL (65-110); Sodium 138 mmol/L (137-145)
[2021-03-31 22:23] VITALS: BP 153/83; PULSE 57; RESP 18; O2SAT 98
== END 2021-03-31 22:30 | disposition home or self-care (01) ==
PROVIDERS: Emergency Provider General Practice
DX: S09.90XA Unspecified injury of head, initial encounter (principal); R11.2 Nausea with vomiting, unspecified; R51.9 Headache, unspecified; M54.2 Cervicalgia; M47.812 Spondylosis without myelopathy or radiculopathy, cervical region; F41.9 Anxiety disorder, unspecified; M19.90 Unspecified osteoarthritis, unspecified site; F32.9 Major depressive disorder, single episode, unspecified; K21.9 Gastro-esophageal reflux disease without esophagitis; I10 Essential (primary) hypertension; G40.909 Epilepsy, unspecified, not intractable, without status epilepticus; E11.9 Type 2 diabetes mellitus without complications; Z79.84 Long term (current) use of oral hypoglycemic drugs; W06.XXXA Fall from bed, initial encounter
CPT/HCPCS: 36415; 70450; 70486; 71045; 72125; 80053; 80307; 81001; 82948; 85025; 85610; 85730; 93005; 96361; 96374; 99284; J2405; J7030; L0140

== ENCOUNTER 2021-04-15 15:37 | Emergency (ER) | payer OTHER, SELFPAY ==
--- NOTE | ~2021-04-15 | CT_ITS ---
EXAMINATION: CT brain wo con DATE: 04/15/2021 18:04 INDICATION: Injury 2 weeks ago. Amnesia. Near syncopal episode. TECHNIQUE: Computed tomography (CT) of the head was performed without intravenous contrast. The mA wa s adjusted according to patient size. Iterative reconstruction technique was employed. Exam dose: 60 5.33 mGy-cm total exam DLP. COMPARISON: 03/31/2021 CT brain FINDINGS: No intracranial mass lesion or hemorrhage or cerebrovascular accident. No midline shift or mass effect. Normal ventricular size. No subdural or epidural hematoma. No orbital mass lesion. The included paranasal sinuses and the mastoid air cells are normally developed and aerated. No fracture or bone destruction of the cranial vault. IMPRESSION: Normal examination Reviewed, dictated and finalized at [facility]. Reviewed, dictated and finalized at location [facility]. IMPRESSION: Normal examination
[2021-04-15 15:55] VITALS: BP 163/75; PULSE 80; RESP 19; TEMP 36.4; O2SAT 98
--- NOTE | 2021-04-15 16:01 | ECG_ITS ---
Measurements Intervals [place] Rate: 70 P: 38 CO: 197 QRS: -33 QRSD: 149 T: 15 QT: 417 QTc: 453 Interpretive Statements SINUS RHYTHM LEFT AXIS DEVIATION RIGHT BUNDLE BRANCH BLOCK BASELINE ARTIFACT- I, II, III, AVR, AVL, AVF, V2-V6 ABNORMAL ECG Electronically Signed On 04-15-2021 20:03:42 CDT by Goran Dodson D.O.
[2021-04-15 16:53] LABS: Add Urine Microscopic? YES; Appearance Urine Clear (Clear); Bilirubin Urine Negative (Negative); Blood Urine Negative (Negative); Color Urine Colorless (Yellow); Glucose Urine UA 3+ mg/dL (Negative); Ketones Urine Negative (Negative); Leukocyte Esterase Ur Negative LEU/UL (Negative); Mucus Urine Rare /lpf; Nitrate Urine Negative (Negative); Protein Urine Negative (Negative); RBC Urine 0-2 /hpf (0-2); Specific Grav Ur 1.028 (1.001-1.035); Squamous Epithelial Cell Urine Rare /hpf (Few); Urobilinogen Urine Negative mg/dL (<2.0); WBC Urine 0-3 /hpf
[2021-04-15 17:03] LABS: Basophils Percent Auto 0.5 % (0.2-1.2); Eosinophils Absolute Auto 0.1 K/mm3 (0-0.3); Eosinophils Percent Auto 1.2 % (0-4.4); Hematocrit 44.6 % (42.0-52.0); Hemoglobin 15.7 g/dL (14.0-18.0); Immature Granulocyte Absolute 0.03 K/mm3 (0.00-0.031); Immature Granulocyte Percent A 0.4 % (0-0.5); Lymphocytes Percent Auto 22.4 % (18.3-44.2); Mean Corpuscular HGB Conc 35.2 g/dl (32-36); Mean Corpuscular Hemoglobin 31.8 pg (26-34); Mean Corpuscular Volume 90.3 fl (80-100); Mean Platelet Volume 10.2 fl (7.4-10.4); Monocytes Absolute Auto 0.5 K/mm3 (0.1-0.6); Monocytes Percent Auto 5.9 % (2.6-8.5); Neutrophils Absolute Auto 5.3 K/mm3 (1.3-6.7); Neutrophils Percent Auto 69.6 % (45.5-73.1); Platelet Count Result 170 k/mm3 (150-375); Red Blood Count 4.94 M/mm3 (4.6-6.20); Red Cell Distribution Width 12.4 % (11.5-14.5); White Blood Count 7.6 K/mm3 (4.5-10.0)
--- NOTE | 2021-04-15 17:10 | ED.AMS ---
HPI - Altered Mental Status General Chief Complaint: Altered Mental Status Stated Complaint: r testicle pain, confusion last night Time Seen by Provider: 04/15/21 16:26 Source: family Limitations: altered mental status and clinical condition History of Present Illness HPI narrative: 51-year-old male He offers limited history and directs most questions to his Here for evaluation of an episode of amnesia which occurred last night and is now resolved His reports that for several hours from roughly 7 until midnight yesterday evening he was confused and amnestic and could not identify the date or her or his service dog for instance This morning those symptoms are resolved He sees a neurologist at the [facility] where it sounds like he is being evaluated for PTSD, nonepileptic seizures, and syncopal spells There is a pending outpatient work-up including brain MRI to be done there His called the office and they suggest that he be checked in the ED He was actually seen here once earlier this year and had a normal EEG as part of his evaluation While he was signing into the ED he had a episode of transiently altered mental status, interpreted by triage is syncope, his states that he has had similar episodes fairly often which have been diagnosed as either syncope or as nonepileptic seizures He had a second brief spell as he was preparing to have after he was brought back to a room He does not have any medical complaints, the testicle issue apparently was persistent in the chart from a previous evaluation He did have a fall about 2 weeks ago with a facial contusion and negative imaging Related Data Home Medications Medication Instructions Recorded Confirmed Victoza 2-Felix 1.2 mg SUBCUT DAILY 07/02/19 12/17/20 acetaminophen 1,000 mg PO Q8-10H PRN 07/02/19 12/17/20 aspirin 81 mg PO DAILY 07/02/19 12/17/20 insulin glulisine U-100 76 unit SUBCUT HS 07/02/19 12/17/20 lactulose 20 g PO EVERY OTHER DAY 07/02/19 12/17/20 metformin 2,000 mg PO HS 07/02/19 12/17/20 prazosin 2 mg PO HS 07/02/19 12/17/20 sildenafil 50 mg PO WEEKLY PRN 07/02/19 12/17/20 trazodone 200 mg PO HS 12/03/19 05/20/21 diphenhydramine HCl 50 mg PO HS 12/17/20 12/17/20 lorazepam 2 mg PO TID PRN 12/17/20 12/17/20 Allergies Allergy/AdvReac Type Severity Reaction Status Date / Time Iodine and Iodide Containing Allergy Severe HIVES, Verified 12/18/20 14:12 Produc SWELLING shellfish derived Allergy Severe Hives,SWELL Verified 12/18/20 14:12 ING Review of Systems Review of Systems: ROS unobtainable: Yes unobtainable due to mental status Constitutional: Constitutional: Denies fever(s) and Reports weakness Cardiovascular: Cardiovascular: Denies chest pain Gastrointestinal: Gastrointestinal: Denies vomiting [facility] Past Medical History Medical History Angina at rest Anxiety Arthritis Back pain Depression Diverticulitis GERD (gastroesophageal reflux disease) Hypertension Kidney stones Liver disease PTSD (post-traumatic stress disorder) Seizures Sleep apnea Type 2 diabetes mellitus Surgical History Surgical History H/O inguinal hernia repair History of partial colectomy Family History Family History Mother History of blood clots Diabetes mellitus Sibling Cerebrovascular accident Father Hypertension Prostate carcinoma Social History Social History Smoking status: Former smoker Tobacco type: cigarettes Smokeless tobacco user: chewing tobacco Alcohol intake: never Substance use: never Gender identity (if verbalized by the patient): Male Spiritual care concerns: No Exam Const: General: no acute distress Orientation/consciousness: patient oriented x3 Limitations: behavioral limitations Other: O x4
[2021-04-15 17:19] LABS: Alanine Aminotransferase 49 U/L (4-50); Albumin Level 4.1 g/dL (3.5-5.1); Alkaline Phosphatase 163 U/L (38-126); Anion Gap 11 mmol/L (8-16); Aspartate Amino Transferase 42 U/L (17-59); Bilirubin,Total 0.5 mg/dL (0.2-1.3); Blood Urea Nitrogen 10 mg/dL (9-20); Calcium 9.1 mg/dL (8.4-10.2); Carbon Dioxide 24 mmol/L (22-30); Chloride 99 mmol/L (98-107); Estimated CRCL calculation 145 ml/min; Estimated Glomerular Filt Rate > 60; Glucose 426 mg/dL (65-110); Potassium 4.3 mmol/L (3.4-5.0); Sodium 134 mmol/L (137-145)
[2021-04-15 17:36] LABS: Troponin I < 0.012 ng/mL (0.000-0.034)
[2021-04-15] MEDS: INSULIN HUMAN REGULAR (*BKC) 100 UNITS/ML 10 UNITS IV PUSH (18:21)
[2021-04-15] MEDS: LACTATED RINGERS 1,000 ML 999 ML IV CONT (18:24)
[2021-04-15 19:52] VITALS: BP 150/79; PULSE 63
[2021-04-15 19:53] VITALS: BP 151/85; PULSE 71
[2021-04-15 19:55] VITALS: BP 159/87; PULSE 72
[2021-04-15 20:02] LABS: Glucose Point of Care 203 mg/dl (65-105)
[2021-04-15 20:31] VITALS: BP 143/83; PULSE 70; RESP 16; O2SAT 99
== END 2021-04-15 20:32 | disposition home or self-care (01) ==
PROVIDERS: Emergency Medicine; Emergency Provider Emergency Medicine; PCP Registered Nurse
DX: E11.65 Type 2 diabetes mellitus with hyperglycemia (principal); G45.4 Transient global amnesia; R56.9 Unspecified convulsions; K76.9 Liver disease, unspecified; I10 Essential (primary) hypertension; K21.9 Gastro-esophageal reflux disease without esophagitis; G47.30 Sleep apnea, unspecified; M19.90 Unspecified osteoarthritis, unspecified site; F41.9 Anxiety disorder, unspecified; F32.9 Major depressive disorder, single episode, unspecified; F43.10 Post-traumatic stress disorder, unspecified; Z87.442 Personal history of urinary calculi; Z79.4 Long term (current) use of insulin; Z79.82 Long term (current) use of aspirin; Z90.49 Acquired absence of other specified parts of digestive tract; Z87.891 Personal history of nicotine dependence
CPT/HCPCS: 36415; 70450; 80053; 81001; 82948; 84484; 85025; 93005; 96361; 96374; 99284; J1815; J7120

== ENCOUNTER 2021-07-25 17:57 | Emergency (ER) | payer OTHER, SELFPAY ==
[2021-07-25] VITALS (10 sets, daily range): BP systolic 144–175; BP diastolic 61–83; PULSE 69–88; RESP 14–20; TEMP 36.4–36.7; O2SAT 96–100
--- NOTE | ~2021-07-25 | XR_ITS ---
EXAMINATION: XR chest 2V DATE: 07/25/2021 18:34 INDICATION: Transient breath, throat tightness and lightheadedness TECHNIQUE: PA and lateral views of the chest were obtained. COMPARISON: Chest radiograph dated 03/31/2021 FINDINGS: The lungs are clear with no focal airspace opacities, pulmonary edema, pleural effusion or pneumothor ax. The cardiomediastinal silhouette is normal. Visualized bones and soft tissues are unremarkable. IMPRESSION: 1. Normal chest radiograph. Reviewed, dictated and finalized at location [facility]. E SETTER IMPRESSION: 1. Normal chest radiograph.
--- NOTE | 2021-07-25 18:23 | ECG_ITS ---
Measurements Intervals [place] Rate: 71 P: 24 [place]: 207 QRS: -15 QRSD: 145 T: 16 QT: 392 QTc: 428 Interpretive Statements SINUS RHYTHM BORDERLINE AV CONDUCTION DELAY RIGHT BUNDLE BRANCH BLOCK BASELINE WANDER- V1 ABNORMAL ECG Electronically Signed On 07-25-2021 20:14:57 WEATHER REPORTER by Goran Dodson D.O.
[2021-07-25 18:48] LABS: Basophils Percent Auto 0.7 % (0.2-1.2); Eosinophils Absolute Auto 0.1 K/mm3 (0-0.3); Hematocrit 44.5 % (42.0-52.0); Hemoglobin 15.6 g/dL (14.0-18.0); Immature Granulocyte Absolute 0.03 K/mm3 (0.00-0.031); Immature Granulocyte Percent A 0.5 % (0-0.5); Lymphocytes Absolute Auto 0.89 K/mm3 (0.9-3.2); Lymphocytes Percent Auto 14.7 % (18.3-44.2); Mean Corpuscular HGB Conc 35.1 g/dl (32-36); Mean Corpuscular Hemoglobin 31.7 pg (26-34); Mean Corpuscular Volume 90.4 fl (80-100); Mean Platelet Volume 10.3 fl (7.4-10.4); Monocytes Absolute Auto 0.5 K/mm3 (0.1-0.6); Monocytes Percent Auto 7.9 % (2.6-8.5); Neutrophils Absolute Auto 4.6 K/mm3 (1.3-6.7); Neutrophils Percent Auto 75.2 % (45.5-73.1); Platelet Count Result 162 k/mm3 (150-375); Red Blood Count 4.92 M/mm3 (4.6-6.20); Red Cell Distribution Width 12.2 % (11.5-14.5); White Blood Count 6.1 K/mm3 (4.5-10.0)
[2021-07-25 19:04] LABS: Alanine Aminotransferase 40 U/L (4-50); Albumin Level 4.5 g/dL (3.5-5.1); Alkaline Phosphatase 142 U/L (38-126); Anion Gap 6 mmol/L (8-16); Aspartate Amino Transferase 35 U/L (17-59); Bilirubin,Total 0.7 mg/dL (0.2-1.3); Blood Urea Nitrogen 10 mg/dL (9-20); Calcium 9.5 mg/dL (8.4-10.2); Carbon Dioxide 27 mmol/L (22-30); Chloride 98 mmol/L (98-107); Estimated CRCL calculation 145 ml/min; Estimated Glomerular Filt Rate > 60; Glucose 295 mg/dL (65-110); Potassium 4.7 mmol/L (3.4-5.0); Sodium 131 mmol/L (137-145)
--- NOTE | 2021-07-25 19:45 | ED.GENADULT ---
HPI - General Adult General Chief complaint: Shortness of Breath/Dyspnea Stated complaint: SOB Time Seen by Provider: 07/25/21 18:40 Source: patient Mode of arrival: ambulatory Limitations: no limitations History of Present Illness HPI narrative: Patient presents for evaluation of difficulty breathing . He states that he has had chronic shortness of breath since he was [place] back in the . He is under the care of caustic purification operator, Dr Bolanos, at the [facility]. He states he has had syncopal episodes every other day for the past 1.5 yrs. He has been seen multiple times in emergency departments for these episodes. He states that testing has resulted as negative and he has not gained insight as to why he is having these episodes. He has been referred to pulmonology but has not had an appt with them yet. He states he experienced chest tight earlier today but is unable to tell me the time of symptom onset. He states he applied some essential oils and then developed problems breathing thereafter. He has a nonproductive cough and shortness of breath. He denies fever, chills, nausea, vomiting. He does not smoke cigarettes but takes one hit of marijuana before bed at night. He denies hx of COVID. He states he has received COVID vaccination. Related Data Home Medications Medication Instructions Recorded Confirmed Victoza 2-Felix 1.2 mg SUBCUT DAILY 07/02/19 12/17/20 acetaminophen 1,000 mg PO Q8-10H PRN 07/02/19 12/17/20 aspirin 81 mg PO DAILY 07/02/19 12/17/20 insulin glulisine U-100 76 unit SUBCUT HS 07/02/19 12/17/20 lactulose 20 g PO EVERY OTHER DAY 07/02/19 12/17/20 metformin 2,000 mg PO HS 07/02/19 12/17/20 prazosin 2 mg PO HS 07/02/19 12/17/20 sildenafil 50 mg PO WEEKLY PRN 07/02/19 12/17/20 trazodone 200 mg PO HS 07/02/19 12/17/20 diphenhydramine HCl 50 mg PO HS 12/17/20 12/17/20 lorazepam 2 mg PO TID PRN 12/17/20 12/17/20 Allergies Allergy/AdvReac Type Severity Reaction Status Date / Time Iodine and Iodide Containing Allergy Severe HIVES, Verified 12/18/20 14:12 Produc SWELLING shellfish derived Allergy Severe Hives,SWELL Verified 12/18/20 14:12 ING Review of Systems Review of Systems: CONSTITUTIONAL: Denies fever, chills, or sweats. EYES: Denies visual changes, redness, or discharge. ENT: Denies rhinorrhea, congestion, sore throat, or otalgia. CARDIOVASCULAR: Denies chest pain, palpitations, or edema. RESPIRATORY:Reports nonproductive cough and shortness of breath GASTROINTESTINAL: Denies abdominal pain, nausea, vomiting, or diarrhea. GENITOURINARY: Denies dysuria or hematuria. SKIN: Denies rash or itching. MUSCULOSKELETAL: Denies back pain, joint pain, or myalgia. NEUROLOGIC: Denies headache, numbness, dizziness, or weakness. PSYCHIATRIC: Denies anxiety or depression. REPLACED BY [facility] Past Medical History Medical History Angina at rest Anxiety Arthritis Back pain Depression Diverticulitis GERD (gastroesophageal reflux disease) Hypertension Kidney stones Liver disease PTSD (post-traumatic stress disorder) Seizures Sleep apnea Type 2 diabetes mellitus Surgical History Surgical History H/O inguinal hernia repair History of partial colectomy Family History Family History Mother History of blood clots Diabetes mellitus Sibling Cerebrovascular accident Father Hypertension Prostate carcinoma Social History Social History Smoking status: Former smoker Tobacco type: cigarettes Smokeless tobacco user: chewing tobacco Alcohol intake: never Substance use: never Gender identity (if verbalized by the patient): Male Spiritual care concerns: No Exam Narrative: GENERAL: Well-appearing, well-nourished, and in no acute distress. HEAD: Normocephalic, at
--- NOTE | 2021-07-25 19:53 | PC.NURSE ---
Addendum entered by Myriam Barrientos RN 07/25/21 19:54: This RN explained quarantine policy that pt would need to quarantine for 2 days while awaiting negative covid result. Original Note: Pt refused flu and covid swab. Stated It's not safe for my to leave this room.
[2021-07-25 20:17] LABS: Troponin I < 0.012 ng/mL (0.000-0.034)
[2021-07-25] MEDS: ALBUTEROL SULFATE (*SP) AEROSOL 1 PUFF 2 PUFF INHALATION (20:32)
== END 2021-07-25 21:58 | disposition home or self-care (01) ==
PROVIDERS: Emergency Medicine; Emergency Provider Nurse Practitioner
DX: J45.909 Unspecified asthma, uncomplicated (principal); E11.9 Type 2 diabetes mellitus without complications; F43.10 Post-traumatic stress disorder, unspecified; F41.9 Anxiety disorder, unspecified; F32.9 Major depressive disorder, single episode, unspecified; M19.90 Unspecified osteoarthritis, unspecified site; K21.9 Gastro-esophageal reflux disease without esophagitis; I10 Essential (primary) hypertension; G47.30 Sleep apnea, unspecified; Z87.442 Personal history of urinary calculi; Z79.82 Long term (current) use of aspirin; Z79.4 Long term (current) use of insulin; I45.10 Unspecified right bundle-branch block; R94.31 Abnormal electrocardiogram [ECG] [EKG]
CPT/HCPCS: 36415; 71046; 80053; 84484; 85025; 93005; 94640; 99284; A9270

== ENCOUNTER 2021-10-03 16:13 | Emergency (ER) | payer OTHER, SELFPAY ==
[2021-10-03] VITALS (16 sets, daily range): BP systolic 138–173; BP diastolic 75–84; PULSE 63–85; RESP 12–21; TEMP 36.9; O2SAT 92–100
--- NOTE | ~2021-10-03 | XR_ITS ---
EXAMINATION: XR chest 1V portable 10/03/2021 16:44 INDICATION: Right-sided chest pain PROCEDURE: AP portable chest COMPARISON: No prior studies for comparison. FINDINGS: The lungs are clear. The cardiomediastinal silhouette is within normal limits. There are no pleural effusions. There is no pneumothorax suspected. IMPRESSION: 1: NO ACUTE CARDIOPULMONARY DISEASE. Reviewed, dictated and finalized at location A. TUBE WINDER
--- NOTE | 2021-10-03 16:19 | ECG_ITS ---
Measurements Intervals [place] Rate: 85 P: 54 VA: 193 QRS: -16 QRSD: 144 T: 25 QT: 392 QTc: 466 Interpretive Statements SINUS RHYTHM WITH SINUS ARRHYTHMIA INDETERMINATE AXIS RIGHT BUNDLE BRANCH BLOCK [120+ ms QRS DURATION, UPRIGHT V1, 40+ ms S IN I/aVL/V4/V5/V6] ABNORMAL ECG COMPARED TO ECG 07/25/2021 18:48:27 SINUS ARRHYTHMIA NOW PRESENT Electronically Signed On 10-04-2021 13:54:01 OCCUPATIONAL THERAPY PROFESSOR by Volodymyr Farooq M.D.
[2021-10-03 16:35] LABS: Basophils Absolute Auto 0.1 K/mm3 (0.0-0.1); Basophils Percent Auto 0.6 % (0.2-1.2); Eosinophils Absolute Auto 0.1 K/mm3 (0-0.3); Hematocrit 44.5 % (42.0-52.0); Hemoglobin 15.7 g/dL (14.0-18.0); Immature Granulocyte Absolute 0.02 K/mm3 (0.00-0.031); Immature Granulocyte Percent A 0.2 % (0-0.5); Lymphocytes Absolute Auto 1.46 K/mm3 (0.9-3.2); Mean Corpuscular HGB Conc 35.3 g/dl (32-36); Mean Corpuscular Hemoglobin 31.9 pg (26-34); Mean Corpuscular Volume 90.4 fl (80-100); Mean Platelet Volume 10.1 fl (7.4-10.4); Monocytes Absolute Auto 0.5 K/mm3 (0.1-0.6); Monocytes Percent Auto 5.9 % (2.6-8.5); Neutrophils Percent Auto 74.3 % (45.5-73.1); Platelet Count Result 193 k/mm3 (150-375); Red Blood Count 4.92 M/mm3 (4.6-6.20); Red Cell Distribution Width 12.4 % (11.5-14.5); White Blood Count 8.1 K/mm3 (4.5-10.0)
--- NOTE | 2021-10-03 16:36 | ED.CHESTPAIN ---
HPI - Chest Pain General Chief Complaint: Chest Pain Stated Complaint: CP,SOB,R ARM PAIN SINCE 2PM Time Seen by Provider: 10/03/21 16:23 Source: patient History of Present Illness HPI narrative: Patient presents with right-sided chest pain that is achy, constant, worse with deep inspiration, radiates to his right arm. Started around 2:00. Reports he was just driving in the passenger side of his friend's truck when his symptoms started he tried to monitor his symptoms at home however they persisted so he came to the ER for evaluation. Denies cough or shortness of breath denies any nausea vomiting or diaphoresis. Is not experienced pain like this before. Denies any recent hospitalizations prior history of blood clots. Related Data Home Medications Medication Instructions Recorded Confirmed Victoza 2-Felix 1.2 mg SUBCUT DAILY 07/02/19 12/17/20 acetaminophen 1,000 mg PO Q8-10H PRN 07/02/19 12/17/20 aspirin 81 mg PO DAILY 07/02/19 12/17/20 insulin glulisine U-100 76 unit SUBCUT HS 07/02/19 12/17/20 lactulose 20 g PO EVERY OTHER DAY 07/02/19 12/17/20 metformin 2,000 mg PO HS 07/02/19 12/17/20 prazosin 2 mg PO HS 07/02/19 12/17/20 sildenafil 50 mg PO WEEKLY PRN 07/02/19 12/17/20 trazodone 200 mg PO HS 07/02/19 12/17/20 diphenhydramine HCl 50 mg PO HS 12/17/20 12/17/20 lorazepam 2 mg PO TID PRN 12/17/20 12/17/20 Allergies Allergy/AdvReac Type Severity Reaction Status Date / Time Iodine and Iodide Containing Allergy Severe HIVES, Verified 12/18/20 14:12 Produc SWELLING shellfish derived Allergy Severe Hives,SWELL Verified 12/18/20 14:12 ING Review of Systems Review of Systems: CONSTITUTIONAL: Denies fever, chills, or sweats. EYES: Denies visual changes, redness, or discharge. ENT: Denies rhinorrhea, congestion, sore throat, or otalgia. CARDIOVASCULAR: Denies palpitations, or edema. RESPIRATORY: Denies cough or dyspnea. GASTROINTESTINAL: Denies abdominal pain, nausea, vomiting, or diarrhea. GENITOURINARY: Denies dysuria or hematuria. SKIN: Denies rash or itching. MUSCULOSKELETAL: Denies back pain, joint pain, or myalgia. NEUROLOGIC: Denies headache, numbness, dizziness, or weakness. PSYCHIATRIC: Denies anxiety or depression. All systems reviewed & are unremarkable except as noted in HPI and below PMFSH Past Medical History Medical History Angina at rest Anxiety Arthritis Back pain Depression Diverticulitis GERD (gastroesophageal reflux disease) Hypertension Kidney stones Liver disease PTSD (post-traumatic stress disorder) Seizures Sleep apnea Type 2 diabetes mellitus Surgical History Surgical History H/O inguinal hernia repair History of partial colectomy Family History Family History Mother History of blood clots Diabetes mellitus Sibling Cerebrovascular accident Father Hypertension Prostate carcinoma Social History Social History Smoking status: Former smoker Tobacco type: cigarettes Smokeless tobacco user: chewing tobacco Alcohol intake: never Substance use: never Gender identity (if verbalized by the patient): Male Spiritual care concerns: No Exam Narrative: GENERAL: Well-appearing, well-nourished, and in no acute distress. HEAD: Normocephalic, atraumatic. EYES: PERRLA and EOMI. ENT: Nares clear, no rhinorrhea or epistaxis. Mucous membranes moist. NECK: Supple. No masses. No JVD CHEST: Clear to auscultation. No respiratory distress. No wheezes rales or rhonchi HEART: Regular rate and rhythm. No murmur heard. Normal peripheral pulses. ABDOMEN: Soft, nontender, nondistended, normal active bowel sounds. EXTREMITIES: Normal range of motion. No edema. SKIN: Warm, dry, no rash. NEURO: No focal deficits. Alert and oriented x3. PSYCH: Normal mood and aff
--- NOTE | 2021-10-03 16:37 | PC.NURSE ---
called lab to add on D-Dimer
--- NOTE | 2021-10-03 16:43 | PC.NURSE ---
Clarified with Dr Powell. OK to cancel protocol aspirin at this time.
[2021-10-03 16:47] LABS: Prothrombin Time 12.9 Seconds (11.1-14.7)
[2021-10-03 16:50] LABS: D Dimer 0.29 ug/mL (<0.48)
[2021-10-03 16:52] LABS: Alanine Aminotransferase 33 U/L (4-50); Albumin Level 4.4 g/dL (3.5-5.1); Alkaline Phosphatase 210 U/L (38-126); Anion Gap 11 mmol/L (8-16); Aspartate Amino Transferase 36 U/L (17-59); Bilirubin,Total 0.7 mg/dL (0.2-1.3); Blood Urea Nitrogen 10 mg/dL (9-20); Carbon Dioxide 24 mmol/L (22-30); Chloride 97 mmol/L (98-107); Estimated CRCL calculation 126 ml/min; Estimated Glomerular Filt Rate > 60; Glucose 566 mg/dL (65-110); Potassium 4.7 mmol/L (3.4-5.0); Sodium 132 mmol/L (137-145)
[2021-10-03 16:55] LABS: Lipase 76 U/L (23-300)
[2021-10-03 17:00] LABS: Troponin I < 0.012 ng/mL (0.000-0.034)
[2021-10-03] MEDS: SODIUM CHLORIDE 0.9% IV 1,000 ML 999 ML IV CONT ×2 (17:02)
[2021-10-03 17:14] LABS: Beta-Hydroxybutyrate/Acetoacetate 0.14 mmol/L (0.02-0.27)
[2021-10-03] MEDS: KETOROLAC 15 MG/ML VIAL (*BKC) IV PUSH (17:33)
[2021-10-03 18:06] LABS: Glucose Point of Care 483 mg/dl (65-105)
[2021-10-03] MEDS: INSULIN HUMAN REGULAR (*BKC) 100 UNITS/ML 12 UNITS SUB-Q (18:10)
[2021-10-03 18:52] LABS: Glucose Point of Care 436 mg/dl (65-105)
[2021-10-03 19:52] LABS: Troponin I < 0.012 ng/mL (0.000-0.034)
[2021-10-03 19:55] LABS: Glucose Point of Care 415 mg/dl (65-105)
--- NOTE | 2021-10-03 19:55 | PC.NURSE ---
Patients bedside glucose is 415. ERP notified.
== END 2021-10-03 20:18 | disposition home or self-care (01) ==
PROVIDERS: Emergency Provider Emergency Medicine
DX: R07.89 Other chest pain (principal); E11.65 Type 2 diabetes mellitus with hyperglycemia; I10 Essential (primary) hypertension; K76.9 Liver disease, unspecified; G47.30 Sleep apnea, unspecified; M19.90 Unspecified osteoarthritis, unspecified site; K21.9 Gastro-esophageal reflux disease without esophagitis; F43.10 Post-traumatic stress disorder, unspecified; F32.A Depression, unspecified; F41.9 Anxiety disorder, unspecified; Z87.442 Personal history of urinary calculi; Z79.84 Long term (current) use of oral hypoglycemic drugs; Z79.4 Long term (current) use of insulin; Z79.82 Long term (current) use of aspirin; Z90.49 Acquired absence of other specified parts of digestive tract; Z87.891 Personal history of nicotine dependence; I45.10 Unspecified right bundle-branch block
CPT/HCPCS: 36415; 71045; 80053; 82010; 82948; 83690; 84484; 85025; 85380; 85610; 85730; 93005; 96361; 96365; 96375; 99284; J0131; J1815; J1885; J7030

== ENCOUNTER 2021-11-11 05:22 | Emergency (ER) | payer OTHER, SELFPAY ==
[2021-11-11 05:26] VITALS: BP 161/76; PULSE 73; RESP 22; TEMP 36.6; O2SAT 97
--- NOTE | 2021-11-11 05:47 | ED.EAR ---
HPI - Ear Problem General Chief complaint: Ear Stated complaint: L ear pain, sore throat Time Seen by Provider: 11/11/21 05:34 Source: patient Mode of arrival: ambulatory Limitations: no limitations History of Present Illness HPI Narrative: 51-year-old male presents emergency room complaining of pain to the left ear as well as a stroke. Is been going on for about 3 to 4 days. Did not have a history of recurrent infections. He is a diabetic but does not check his blood sugar. He is leaving on a trip on Monday and will be on a covered wagon trip for a month. He went to make sure he could get this addressed and hopefully taking care of before he leaves. Hurts when he tries to swallow and get some tenderness to the left anterior lymph nodes. Related Data Home Medications Medication Instructions Recorded Confirmed Victoza 2-Felix 1.2 mg SUBCUT DAILY 07/02/19 12/17/20 acetaminophen 1,000 mg PO Q8-10H PRN 07/02/19 12/17/20 aspirin 81 mg PO DAILY 07/02/19 12/17/20 insulin glulisine U-100 76 unit SUBCUT HS 07/02/19 12/17/20 lactulose 20 g PO EVERY OTHER DAY 07/02/19 12/17/20 metformin 2,000 mg PO HS 07/02/19 12/17/20 prazosin 2 mg PO HS 07/02/19 12/17/20 sildenafil 50 mg PO WEEKLY PRN 07/02/19 12/17/20 trazodone 200 mg PO HS 07/02/19 12/17/20 diphenhydramine HCl 50 mg PO HS 12/17/20 12/17/20 lorazepam 2 mg PO TID PRN 12/17/20 12/17/20 Allergies Allergy/AdvReac Type Severity Reaction Status Date / Time Iodine and Iodide Containing Allergy Severe HIVES, Verified 11/11/21 05:39 Produc SWELLING shellfish derived Allergy Severe Hives,SWELL Verified 11/11/21 05:39 ING Review of Systems Review of Systems: CONSTITUTIONAL: Denies fever, chills, or sweats. EYES: Denies visual changes, redness, or discharge. ENT: Patient complaining of a sore throat as well as a left-sided earache. CARDIOVASCULAR: Denies chest pain, palpitations, or edema. RESPIRATORY: Denies cough or dyspnea. GASTROINTESTINAL: Denies abdominal pain, nausea, vomiting, or diarrhea. GENITOURINARY: Denies dysuria or hematuria. SKIN: Denies rash or itching. MUSCULOSKELETAL: Denies back pain, joint pain, or myalgia. NEUROLOGIC: Denies headache, numbness, or weakness. PSYCHIATRIC: Denies anxiety or depression. [facility] Past Medical History Medical History Angina at rest Anxiety Arthritis Back pain Depression Diverticulitis GERD (gastroesophageal reflux disease) Hypertension Kidney stones Liver disease PTSD (post-traumatic stress disorder) Seizures Sleep apnea Type 2 diabetes mellitus Surgical History Surgical History H/O inguinal hernia repair History of partial colectomy Family History Family History Mother History of blood clots Diabetes mellitus Sibling Cerebrovascular accident Father Hypertension Prostate carcinoma Social History Social History Smoking status: Former smoker Tobacco type: cigarettes Smokeless tobacco user: chewing tobacco Alcohol intake: never Substance use: never Gender identity (if verbalized by the patient): Male Spiritual care concerns: No Exam Narrative: APPEARANCE: Patient is obese. Appears to be in mild distress secondary to pain Head normocephalic and atraumatic. EYES: PERRLA/EOMI, conjunctivae very clear. NOSE: Normal with no drainage EARS: Left TM is dull and appears to have some fluid behind it. Right TM is clear THROAT: Posterior pharynx is erythematous without any exudates.. NECK: Supple. Noted to have tender anterior cervical lymphadenopathy greater on the left compared to the right.. RESPIRATORY: Airway patent, respirations nonlabored. Clear to auscultation bilaterally, no rales, rhonchi, wheezing. CARDIOVASCULAR: Regular rate and rhythm without murmurs, rubs, or gallops.
== END 2021-11-11 05:55 | disposition home or self-care (01) ==
PROVIDERS: Emergency Provider Emergency Medicine
DX: H65.02 Acute serous otitis media, left ear (principal); J02.9 Acute pharyngitis, unspecified; E11.9 Type 2 diabetes mellitus without complications; K21.9 Gastro-esophageal reflux disease without esophagitis; I10 Essential (primary) hypertension; K76.9 Liver disease, unspecified; G47.30 Sleep apnea, unspecified; M19.90 Unspecified osteoarthritis, unspecified site; F43.10 Post-traumatic stress disorder, unspecified; F41.9 Anxiety disorder, unspecified; F32.A Depression, unspecified; Z87.442 Personal history of urinary calculi; Z79.4 Long term (current) use of insulin; Z79.84 Long term (current) use of oral hypoglycemic drugs; Z79.899 Other long term (current) drug therapy; Z90.49 Acquired absence of other specified parts of digestive tract; Z87.891 Personal history of nicotine dependence
CPT/HCPCS: 99283

== ENCOUNTER 2022-06-25 18:38 | Emergency (ER) | payer OTHER, SELFPAY ==
[2022-06-25] VITALS (7 sets, daily range): BP systolic 105–135; BP diastolic 85–97; PULSE 107–120; RESP 12–24; TEMP 37–37.2; O2SAT 98–100
--- NOTE | ~2022-06-25 | CT_ITS ---
EXAMINATION: CT abdomen pelvis wo con DATE: 06/25/2022 20:10 INDICATION: pancreatitis, N/V/D TECHNIQUE: Computed tomography (CT) of the abdomen and pelvis was performed without intravenous contr ast. Automated exposure control and iterative reconstruction technique were employed. The dose-length product was 1659.87 mGy-cm. COMPARISON: 04/18/2016. FINDINGS: Lower thorax: Small hiatal hernia. Liver: Enlarged. Diffuse fatty infiltration. Biliary/Gallbladder: Gallbladder is normal. No bile duct dilation. Pancreas: No mass or duct dilation. Spleen: Enlarged. Adrenals:No mass. Kidneys: No mass, stone, or hydronephrosis. GI tract: No small or large bowel dilation. Normal appendix. Uncomplicated appearing rectosigmoid kehinde stomosis. Mesentery/Peritoneum: No ascites, mass, or free air. Retroperitoneum: No mass. Pelvis: Pelvic organs are within normal limits. Soft Tissues: Uncomplicated small fat-containing left inguinal hernia. Calcified midline lower abdomi nal scar. Bones: No acute osseous finding. IMPRESSION: No acute abdominal pelvic process detected. Specifically, there is no CT evidence of pancreatitis. He patosplenomegaly. Reviewed, dictated and finalized at location [facility] IMPRESSION: No acute abdominal pelvic process detected. Specifically, there is no CT eviden ce of pancreatitis. Hepatosplenomegaly.
--- NOTE | 2022-06-25 18:45 | ECG_ITS ---
Measurements Intervals [place] Rate: 116 P: 40 ND: 186 QRS: 262 QRSD: 129 T: 8 QT: 337 QTc: 470 Interpretive Statements SINUS TACHYCARDIA ATRIAL PREMATURE COMPLEX RIGHT AXIS DEVIATION RIGHT BUNDLE BRANCH BLOCK BASELINE ARTIFACT- I, II, III, AVR, AVL, AVF ABNORMAL ECG COMPARED TO ECG 10/03/2021 16:21:50 SINUS TACHYCARDIA NOW PRESENT Electronically Signed On 06-25-2022 22:06:27 [employer] by Goran Dodson D.O.
[2022-06-25 19:04] LABS: Basophils Percent Auto 0.3 % (0.2-1.2); Eosinophils Absolute Auto 0.1 K/mm3 (0-0.3); Eosinophils Percent Auto 0.5 % (0-4.4); Hematocrit 52.1 % (42.0-52.0); Hemoglobin 18.9 g/dL (14.0-18.0); Immature Granulocyte Absolute 0.03 K/mm3 (0.00-0.031); Immature Granulocyte Percent A 0.3 % (0-0.5); Lymphocytes Absolute Auto 0.41 K/mm3 (0.9-3.2); Lymphocytes Percent Auto 4.1 % (18.3-44.2); Mean Corpuscular HGB Conc 36.3 g/dl (32-36); Mean Corpuscular Hemoglobin 32.1 pg (26-34); Mean Corpuscular Volume 88.5 fl (80-100); Mean Platelet Volume 9.5 fl (7.4-10.4); Monocytes Absolute Auto 0.5 K/mm3 (0.1-0.6); Monocytes Percent Auto 4.5 % (2.6-8.5); Neutrophils Absolute Auto 9.1 K/mm3 (1.3-6.7); Neutrophils Percent Auto 90.3 % (45.5-73.1); Platelet Count Result 198 k/mm3 (150-375); Red Blood Count 5.89 M/mm3 (4.6-6.20); Red Cell Distribution Width 12.4 % (11.5-14.5)
[2022-06-25 19:11] LABS: Appearance Urine Clear (Clear); Bilirubin Urine Negative (Negative); Blood Urine Negative (Negative); Color Urine Yellow (Yellow); Glucose Urine UA 3+ mg/dL (Negative); Ketones Urine 3+ mg/dL (Negative); Leukocyte Esterase Ur Negative LEU/UL (Negative); Nitrate Urine Negative (Negative); Protein Urine Negative (Negative); Specific Grav Ur 1.015 (1.001-1.035); Urobilinogen Urine 0.2 mg/dL (<2.0)
[2022-06-25 19:15] LABS: Alanine Aminotransferase 36 U/L (6-50); Alkaline Phosphatase 126 U/L (38-126); Anion Gap 14 mmol/L (8-16); Aspartate Amino Transferase 35 U/L (17-59); Bilirubin,Total 1.2 mg/dL (0.2-1.3); Blood Urea Nitrogen 15 mg/dL (9-20); Calcium 9.7 mg/dL (8.4-10.2); Carbon Dioxide 21 mmol/L (22-30); Chloride 102 mmol/L (98-107); Estimated CRCL calculation 139 ml/min; Estimated Glomerular Filt Rate > 60; Glucose 159 mg/dL (65-110); Lipase 690 U/L (23-300); Potassium 4.2 mmol/L (3.4-5.0); Sodium 137 mmol/L (137-145)
[2022-06-25 19:17] LABS: RBC Urine 0-2 /hpf (0-2); Squamous Epithelial Cell Urine Rare /hpf (Few); WBC Urine 0-3 /hpf
[2022-06-25 19:18] LABS: Add Urine Microscopic? YES
--- NOTE | 2022-06-25 19:36 | ED.GENADULT ---
HPI - General Adult General Chief complaint: Weakness Stated complaint: Weakness Time Seen by Provider: 06/25/22 19:00 History of Present Illness HPI narrative: Patient is a 52-year-old male with a history of hypertension, diabetes, seizures, PTSD presenting with abdominal pain and vomiting. Patient states that he had an episode of diarrhea approximately 8 hours ago. Several hours after that, he developed severe abdominal pain and intractable vomiting. States he has been unable to keep anything down. States that he feels generally weak. No fevers, headache, chest pain, shortness of breath, cough, dysuria, leg swelling. Related Data Home Medications Medication Instructions Recorded Confirmed acetaminophen 500 mg capsule 1,000 mg PO Q8-10H PRN Pain 07/02/19 12/17/20 aspirin 81 mg tablet,delayed 81 mg PO DAILY 07/02/19 12/17/20 release insulin glulisine U-100 100 76 unit subcut HS 07/02/19 12/17/20 unit/mL subcutaneous pen lactulose 10 gram/15 mL oral 20 g PO EVERY OTHER DAY 07/02/19 12/17/20 solution liraglutide 0.6 mg/0.1 mL (18 mg/3 1.2 mg subcut DAILY 07/02/19 12/17/20 mL) subcutaneous pen injector (Victoza 2-Felix) metformin 500 mg 24 hr 2,000 mg PO HS 07/02/19 12/17/20 tablet,extended release prazosin 2 mg capsule 2 mg PO HS 07/02/19 12/17/20 sildenafil 100 mg tablet 50 mg PO WEEKLY PRN Erectile 07/02/19 12/17/20 Dysfunction trazodone 100 mg tablet 200 mg PO HS 07/02/19 12/17/20 diphenhydramine HCl 50 mg capsule 50 mg PO HS 12/17/20 12/17/20 lorazepam 2 mg tablet 2 mg PO TID PRN Anxiety 12/17/20 12/17/20 Allergies Allergy/AdvReac Type Severity Reaction Status Date / Time Iodine and Iodide Containing Allergy Severe HIVES, Verified 06/25/22 18:47 Produc SWELLING shellfish derived Allergy Severe Hives,SWELL Verified 06/25/22 18:47 ING Review of Systems Review of Systems: All systems reviewed & are unremarkable except as noted in HPI and below PMFSH Past Medical History Medical History Angina at rest Anxiety Arthritis Back pain Depression Diverticulitis GERD (gastroesophageal reflux disease) Hypertension Kidney stones Liver disease PTSD (post-traumatic stress disorder) Seizures Sleep apnea Type 2 diabetes mellitus Surgical History Surgical History H/O inguinal hernia repair History of partial colectomy Family History Family History Mother History of blood clots Diabetes mellitus Sibling Cerebrovascular accident Father Hypertension Prostate carcinoma Social History Social History Smoking status: Former smoker Tobacco type: cigarettes Smokeless tobacco user: chewing tobacco Alcohol intake: never Substance use: never Gender identity (if verbalized by the patient): Male Spiritual care concerns: No Exam Narrative: GENERAL: Distressed secondary to pain and nausea HEAD: Normocephalic, atraumatic. EYES: PERRLA and EOMI. ENT: Nares clear, no rhinorrhea or epistaxis. Mucous membranes moist. NECK: Supple. CHEST: Clear to auscultation. No respiratory distress. HEART: Regular rate and rhythm. No murmur heard. Normal peripheral pulses. ABDOMEN: Soft, tender in the epigastrium and left upper quadrant, nondistended, intermittently vomiting EXTREMITIES: Normal range of motion. No edema. SKIN: Warm, dry, no rash. NEURO: No focal deficits. Alert and oriented x3. PSYCH: Normal mood and affect. Course Vital Signs Vital signs: Vital Signs Temperature 98.6 F 06/25/22 18:42 Pulse Rate 115 H 06/25/22 18:42 Respiratory Rate 24 H 06/25/22 18:42 Blood Pressure 135/97 H 06/25/22 18:42 Pulse Oximetry 98 06/25/22 18:42 Oxygen Delivery Room Air 06/25/22 18:42 Temperature 99.0 F 06/25/22 23:21 Pulse Rate 111 H
[2022-06-25] MEDS: SODIUM CHLORIDE 0.9% IV 1,000 ML 999 ML IV CONT ×3 (19:41→22:47)
[2022-06-25] MEDS: MORPHINE SULFATE (*CRX) 4 MG/ML INJ IV PUSH (19:41)
[2022-06-25] MEDS: ONDANSETRON INJ 4 MG/2 ML VIAL IV PUSH (19:41)
[2022-06-25 19:59] LABS: Amphetamine Screen Urine Negative (Negative); Barbiturate Screen Urine Negative (Negative); Benzodiazepines Screen Urine Negative (Negative); Cannabinoid Screen Urine Negative (Negative); Cocaine Screen Urine Negative (Negative); Methadone Screen Urine Negative (Negative); Opiate Screen Urine Negative (Negative); Phencyclidine Screen Urine Negative (Negative)
[2022-06-25] MEDS: KETOROLAC 15 MG/ML VIAL (*BKC) IV PUSH (22:47)
--- NOTE | 2022-06-25 23:01 | PC.NURSE ---
Report received from STACIA Bauman. Assumed care of patient at this time.
--- NOTE | 2022-06-25 23:49 | PC.NURSE ---
Patient states he feels better and is ready to go home. Patient tolerated PO intake and pain is better. ERP notified.
[2022-06-26 00:41] LABS: Influenza A QL RT-PCR Negative (Negative); Influenza B QL RT-PCR Negative (Negative); SARS-CoV-2 RNA PCR Negative
== END 2022-06-26 00:48 | disposition home or self-care (01) ==
PROVIDERS: Emergency Medicine; Emergency Provider Emergency Medicine
DX: K85.90 Acute pancreatitis without necrosis or infection, unspecified (principal); E86.0 Dehydration; Z20.822 Contact with and (suspected) exposure to COVID-19; I10 Essential (primary) hypertension; E11.9 Type 2 diabetes mellitus without complications; K76.9 Liver disease, unspecified; M19.90 Unspecified osteoarthritis, unspecified site; K21.9 Gastro-esophageal reflux disease without esophagitis; G47.30 Sleep apnea, unspecified; F41.9 Anxiety disorder, unspecified; F32.A Depression, unspecified; F43.10 Post-traumatic stress disorder, unspecified; Z90.49 Acquired absence of other specified parts of digestive tract; Z87.442 Personal history of urinary calculi; Z87.891 Personal history of nicotine dependence; Z79.4 Long term (current) use of insulin; Z79.84 Long term (current) use of oral hypoglycemic drugs; Z79.82 Long term (current) use of aspirin; Z79.899 Other long term (current) drug therapy; R00.0 Tachycardia, unspecified; I49.1 Atrial premature depolarization; I45.10 Unspecified right bundle-branch block; R16.2 Hepatomegaly with splenomegaly, not elsewhere classified
CPT/HCPCS: 36415; 74176; 80053; 80307; 81001; 83690; 85025; 87636; 93005; 96361; 96374; 96375; 99284; J0131; J1885; J2270; J2405; J7030

== ENCOUNTER 2022-09-02 18:16 | Emergency (ER) | payer OTHER, SELFPAY ==
[2022-09-02] MEDS: EPINEPHrine HCL INJ 1 MG/ML AMPUL (18:28)
[2022-09-02 18:29] VITALS: BP 195/81; PULSE 83; RESP 20; TEMP 36.6; O2SAT 99
--- NOTE | 2022-09-02 18:33 | ED.ALLEREA ---
HPI - Allergic Reaction General Chief complaint: Allergic Reaction Stated complaint: allergic reaction Time Seen by Provider: 09/02/22 18:24 Source: patient and family Mode of arrival: ambulatory Limitations: no limitations History of Present Illness HPI narrative: Patient is a 52-year-old male who presents to the ED with report of allergic reaction. Patient was at a [facility] prior to arrival. He was unaware that they were also frying shrimp at the facility. He is unsure if shrimp was fried in the same oil as the fish he ate, or if it was handled by the same person/gloves. He did not actually ingest any shrimp. He began having itching and swelling in his throat, swelling of his lips and tongue. Initially he was not having trouble breathing, he went home and took for oral Benadryl. The swelling continued to worsen, which prompted his presentation. Patient does not have an EpiPen. He has never received epi before. Upon my evaluation, having difficulty controlling secretions. Complaining of headache, as well. No rash. Related Data Home Medications Medication Instructions Recorded Confirmed acetaminophen 500 mg capsule 1,000 mg PO Q8-10H PRN Pain 07/02/19 12/17/20 aspirin 81 mg tablet,delayed 81 mg PO DAILY 07/02/19 12/17/20 release insulin glulisine U-100 100 76 unit subcut HS 07/02/19 12/17/20 unit/mL subcutaneous pen lactulose 10 gram/15 mL oral 20 g PO EVERY OTHER DAY 07/02/19 12/17/20 solution liraglutide 0.6 mg/0.1 mL (18 mg/3 1.2 mg subcut DAILY 07/02/19 12/17/20 mL) subcutaneous pen injector (Victoza 2-Felix) metformin 500 mg 24 hr 2,000 mg PO HS 07/02/19 12/17/20 tablet,extended release prazosin 2 mg capsule 2 mg PO HS 07/02/19 12/17/20 sildenafil 100 mg tablet 50 mg PO WEEKLY PRN Erectile 07/02/19 12/17/20 Dysfunction trazodone 100 mg tablet 200 mg PO HS 07/02/19 12/17/20 diphenhydramine HCl 50 mg capsule 50 mg PO HS 12/17/20 12/17/20 lorazepam 2 mg tablet 2 mg PO TID PRN Anxiety 12/17/20 12/17/20 Allergies Allergy/AdvReac Type Severity Reaction Status Date / Time Iodine and Iodide Containing Allergy Severe HIVES, Verified 06/25/22 18:47 Produc SWELLING shellfish derived Allergy Severe Hives,SWELL Verified 06/25/22 18:47 ING Review of Systems Review of Systems: CONSTITUTIONAL: Denies fever, chills, or sweats. ENT: See HPI. CARDIOVASCULAR: Denies chest pain, palpitations, or edema. RESPIRATORY: See HPI. GASTROINTESTINAL: Denies abdominal pain, nausea, vomiting. SKIN: Denies rash or itching. All systems reviewed & are unremarkable except as noted in HPI and below PMFSH Past Medical History Medical History Angina at rest Anxiety Arthritis Back pain Depression Diverticulitis GERD (gastroesophageal reflux disease) Hypertension Kidney stones Liver disease PTSD (post-traumatic stress disorder) Seizures Sleep apnea Type 2 diabetes mellitus Surgical History Surgical History H/O inguinal hernia repair History of partial colectomy Family History Family History Mother History of blood clots Diabetes mellitus Sibling Cerebrovascular accident Father Hypertension Prostate carcinoma Social History Social History Smoking status: Former smoker Tobacco type: cigarettes Smokeless tobacco user: chewing tobacco Alcohol intake: never Substance use: never Gender identity (if verbalized by the patient): Male Spiritual care concerns: No Exam Narrative: GENERAL: Uncomfortable appearing, obese, in moderate acute distress. HEAD: Normocephalic, atraumatic. EYES: Swelling of lips, tongue, uvula, consistent with angioedema. Airway patent, but narrow. Patient with some drooling of saliva, frequent coughing on exam. NECK: Supp
[2022-09-02] MEDS: methylPREDNISolone SOD SUCC 125 MG VIAL IV PUSH (18:36)
[2022-09-02] MEDS: FAMOTIDINE 20 MG/2 ML VIAL IV PUSH (18:36)
== END 2022-09-02 22:29 | disposition home or self-care (01) ==
PROVIDERS: Emergency Provider Physician Assistant
DX: T78.3XXA Angioneurotic edema, initial encounter (principal); T78.1XXA Other adverse food reactions, not elsewhere classified, initial encounter; Z91.013 Allergy to seafood; I10 Essential (primary) hypertension; E11.9 Type 2 diabetes mellitus without complications; K21.9 Gastro-esophageal reflux disease without esophagitis; K76.9 Liver disease, unspecified; M19.90 Unspecified osteoarthritis, unspecified site; G47.30 Sleep apnea, unspecified; F43.10 Post-traumatic stress disorder, unspecified; F32.A Depression, unspecified; F41.9 Anxiety disorder, unspecified; Z90.49 Acquired absence of other specified parts of digestive tract; Z87.442 Personal history of urinary calculi; Z87.891 Personal history of nicotine dependence; Z79.4 Long term (current) use of insulin; Z79.84 Long term (current) use of oral hypoglycemic drugs; Z79.82 Long term (current) use of aspirin
CPT/HCPCS: 96372; 96374; 96375; 99284; J0171; J2930

== ENCOUNTER 2023-01-21 18:46 | Emergency (ER) | payer OTHER, SELFPAY ==
--- NOTE | ~2023-01-21 | XR_ITS ---
AP and oblique views of the left ribs Clinical History: Pain Findings: No rib fracture is seen. Osseous alignment is anatomic. Lungs are clear, without focal cons olidation or pleural effusion. Cardiomediastinal contour is within normal limits. Soft tissues are un remarkable. Impression: No rib fracture is seen. Reviewed, dictated and finalized at [facility]. Impression: No rib fracture is seen.
[2023-01-21 19:00] VITALS: BP 139/92; PULSE 80; RESP 18; TEMP 36.4; O2SAT 97
--- NOTE | 2023-01-21 19:20 | ED.GENADULT ---
HPI - General Adult General Chief complaint: Back Pain/Injury Stated complaint: FALL 2 DAYS AGO Time Seen by Provider: 01/21/23 19:09 History of Present Illness HPI narrative: this is a 52-year-old male presenting ED with rib pain. Two days ago the patient fell down the stairs. After he fell he grabbed the rail and swelling down in his left side on the wall. He felt so well at that time but had worse pain yesterday and today he is having pain with deep breaths. He has taken 10 mg of baclofen for his pain. He denies fever chills chest pain abdominal pain or or head injury. Related Data Home Medications Medication Instructions Recorded Confirmed acetaminophen 500 mg capsule 1,000 mg PO Q8-10H PRN Pain 07/02/19 12/17/20 aspirin 81 mg tablet,delayed 81 mg PO DAILY 07/02/19 12/17/20 release insulin glulisine U-100 100 76 unit subcut HS 07/02/19 12/17/20 unit/mL subcutaneous pen lactulose 10 gram/15 mL oral 20 g PO EVERY OTHER DAY 07/02/19 12/17/20 solution liraglutide 0.6 mg/0.1 mL (18 mg/3 1.2 mg subcut DAILY 07/02/19 12/17/20 mL) subcutaneous pen injector (Victoza 2-Felix) metformin 500 mg 24 hr 2,000 mg PO HS 07/02/19 12/17/20 tablet,extended release prazosin 2 mg capsule 2 mg PO HS 07/02/19 12/17/20 sildenafil 100 mg tablet 50 mg PO WEEKLY PRN Erectile 07/02/19 12/17/20 Dysfunction trazodone 100 mg tablet 200 mg PO HS 07/02/19 12/17/20 diphenhydramine HCl 50 mg capsule 50 mg PO HS 12/17/20 12/17/20 lorazepam 2 mg tablet 2 mg PO TID PRN Anxiety 12/17/20 12/17/20 Allergies Allergy/AdvReac Type Severity Reaction Status Date / Time Iodine and Iodide Containing Allergy Severe HIVES, Verified 01/21/23 19:25 Produc SWELLING shellfish derived Allergy Severe Hives,SWELL Verified 01/21/23 19:25 ING PMFSH Past Medical History Medical History Angina at rest Anxiety Arthritis Back pain Depression Diverticulitis GERD (gastroesophageal reflux disease) Hypertension Kidney stones Liver disease PTSD (post-traumatic stress disorder) Seizures Sleep apnea Type 2 diabetes mellitus Surgical History Surgical History H/O inguinal hernia repair History of partial colectomy Family History Family History Mother History of blood clots Diabetes mellitus Sibling Cerebrovascular accident Father Hypertension Prostate carcinoma Social History Social History Smoking status: Former smoker Tobacco type: cigarettes Smokeless tobacco user: chewing tobacco Alcohol intake: never Substance use: never Gender identity (if verbalized by the patient): Male Spiritual care concerns: No Exam Narrative: APPEARANCE: Patient appears uncomfortable Head: atraumatic. EYES: EOMI, NOSE: Atraumatic NECK: Trachea midline RESPIRATORY: pain with deep inspiration, clear to auscultation CARDIOVASCULAR: RRR, ABDOMINAL: Non-distended, soft nontender no guarding rebound MUSCULOSKELETAl: No obvious deformities NEURO: Alert. Moving 4/4 extremities SKIN:: Warm, dry. Normal color PSYCHIATRIC: Normal affect Course Vital Signs Vital signs: Vital Signs Temperature 97.5 F L 01/21/23 19:00 Pulse Rate 80 01/21/23 19:00 Respiratory Rate 18 01/21/23 19:00 Blood Pressure 139/92 H 01/21/23 19:00 Pulse Oximetry 97 01/21/23 19:00 Oxygen Delivery Room Air 01/21/23 19:00 Temperature 97.5 F L 01/21/23 19:00 Pulse Rate 80 01/21/23 19:00 Respiratory Rate 18 01/21/23 19:00 Blood Pressure 139/92 H 01/21/23 19:00 Pulse Oximetry 97 01/21/23 19:00 Oxygen Delivery Room Air 01/21/23 19:00 Medical Decision Making MDM Narrative Medical decision making narrative: -Presentation: 52-year-old male presenting with ribcage and pain on inspiration -DDX inclu
[2023-01-21] MEDS: methocarbamoL 750 MG TABLET 1500 MG PO (19:26)
[2023-01-21] MEDS: ACETAMINOPHEN 500 MG TABLET 1000 MG PO (19:27)
[2023-01-21] MEDS: HYDROmorphone HCL INJ (*CRX) 1 MG/ML SYR IM (19:27)
--- NOTE | 2023-01-21 19:30 | PC.NURSE ---
Patient taken to xray via stretcher at this time.
[2023-01-21] MEDS: LIDOCAINE 5% PATCH 1 PATCH TRANSDERM (20:23)
== END 2023-01-21 21:05 | disposition home or self-care (01) ==
PROVIDERS: Emergency Provider Emergency Medicine
DX: R07.81 Pleurodynia (principal); M79.7 Fibromyalgia; I10 Essential (primary) hypertension; E11.9 Type 2 diabetes mellitus without complications; K76.9 Liver disease, unspecified; K21.9 Gastro-esophageal reflux disease without esophagitis; M19.90 Unspecified osteoarthritis, unspecified site; G47.30 Sleep apnea, unspecified; F43.10 Post-traumatic stress disorder, unspecified; F41.9 Anxiety disorder, unspecified; F32.A Depression, unspecified; Z87.891 Personal history of nicotine dependence; Z87.442 Personal history of urinary calculi; Z90.49 Acquired absence of other specified parts of digestive tract; Z79.84 Long term (current) use of oral hypoglycemic drugs; Z79.4 Long term (current) use of insulin; Z79.82 Long term (current) use of aspirin; W10.9XXA Fall (on) (from) unspecified stairs and steps, initial encounter
CPT/HCPCS: 71101; 96372; 99283; A9270; J1170

== ENCOUNTER 2023-02-20 09:38 | Emergency (ER) | payer OTHER, SELFPAY ==
[2023-02-20] VITALS (9 sets, daily range): BP systolic 126–150; BP diastolic 70–101; PULSE 72–80; RESP 16–18; TEMP 36.6; O2SAT 84–99
--- NOTE | ~2023-02-20 | CT_ITS ---
EXAMINATION: CT soft tissue neck wo con DATE: 02/20/2023 10:36 INDICATION: Uvulitis TECHNIQUE: Computed tomography (CT) of the neck was performed without intravenous contrast. Automated exposure control and iterative reconstruction technique were employed. The dose-length product was 3 1.31 mGy-cm. COMPARISON: Cervical spine and maxillofacial CT dated 03/31/2021 FINDINGS: Orbits are normal. The paranasal sinuses are clear. The callosal thickening the bilateral ethmoid and maxillary sinuses. Mastoid air cells and middle ear cavities are clear. Bilateral submandibular and parotid glands are symmetric. Thyroid gland is unremarkable. There are scattered normal-sized lymph nodes in the neck, no lymphadenopathy. No masses identified. The uvula appears enlarged but without significant change since the earlier study and this could be either developmental or related to repor alpa history of uvulitis. Again seen are chronic small dystrophic calcifications at the bilateral jacqueline marli and lingual tonsils. Parapharyngeal soft tissues are otherwise unremarkable. Airway is unremarka ble. Superior mediastinum is unremarkable. Lung apices are normal accounting for some respiratory mot ion and at least partially expiratory phase of imaging. IMPRESSION: 1. Uvula appears enlarged which could be due to reported uvulitis however without significant change since study in 2020 and this could also be developmental. Reviewed, dictated and finalized at location [facility]. IMPRESSION: 1. Uvula appears enlarged which could be due to reported uvulitis however witho ut significant change since study in 2020 and this could also be developmental.
--- NOTE | 2023-02-20 09:58 | PC.NURSE ---
pt on 2L of 02NC for comfort. PT Sat 96
--- NOTE | 2023-02-20 10:06 | ED.URI ---
HPI - URI/Sore Throat General Chief Complaint: Upper Respiratory Infection Stated Complaint: throat swelling Time Seen by Provider: 02/20/23 09:59 History of Present Illness HPI Narrative: Pt says he has had cold symptoms for a couple of days but woke up this morning and uvula was very swollen and has sore throat. Pt denies fever or respiratory compromise. Related Data Home Medications Medication Instructions Recorded Confirmed acetaminophen 500 mg capsule 1,000 mg PO Q8-10H PRN Pain 07/02/19 12/17/20 aspirin 81 mg tablet,delayed 81 mg PO DAILY 07/02/19 12/17/20 release insulin glulisine U-100 100 76 unit subcut HS 07/02/19 12/17/20 unit/mL subcutaneous pen lactulose 10 gram/15 mL oral 20 g PO EVERY OTHER DAY 07/02/19 12/17/20 solution liraglutide 0.6 mg/0.1 mL (18 mg/3 1.2 mg subcut DAILY 07/02/19 12/17/20 mL) subcutaneous pen injector ([employer]er[employer]za 2-Felix) metformin 500 mg 24 hr 2,000 mg PO HS 07/02/19 12/17/20 tablet,extended release prazosin 2 mg capsule 2 mg PO HS 07/02/19 12/17/20 sildenafil 100 mg tablet 50 mg PO WEEKLY PRN Erectile 07/02/19 12/17/20 Dysfunction trazodone 100 mg tablet 200 mg PO HS 07/02/19 12/17/20 diphenhydramine HCl 50 mg capsule 50 mg PO HS 12/17/20 12/17/20 lorazepam 2 mg tablet 2 mg PO TID PRN Anxiety 12/17/20 12/17/20 Allergies Allergy/AdvReac Type Severity Reaction Status Date / Time Iodine and Iodide Containing Allergy Severe HIVES, Verified 01/21/23 19:25 Produc SWELLING shellfish derived Allergy Severe Hives,SWELL Verified 01/21/23 19:25 ING Review of Systems Review of Systems: All systems reviewed & are unremarkable except as noted in HPI and below PMFSH Past Medical History Medical History Angina at rest Anxiety Arthritis Back pain Depression Diverticulitis GERD (gastroesophageal reflux disease) Hypertension Kidney stones Liver disease PTSD (post-traumatic stress disorder) Seizures Sleep apnea Type 2 diabetes mellitus Surgical History Surgical History H/O inguinal hernia repair History of partial colectomy Family History Family History Mother History of blood clots Diabetes mellitus Sibling Cerebrovascular accident Father Hypertension Prostate carcinoma Social History Social History Smoking status: Former smoker Tobacco type: cigarettes Smokeless tobacco user: chewing tobacco Alcohol intake: never Substance use: never Gender identity (if verbalized by the patient): Male Spiritual care concerns: No Exam Const: General: healthy appearing and no acute distress Nutritional Appearance: well nourished Orientation/consciousness: patient oriented x3 Limitations: no limitations HENMT: Head: normal to inspection Throat: uvula midline (but very edematous and tonsils swollen, but airway patent) Eyes: Conjunctivae: conjunctivae normal EOM: EOMs intact bilaterally Neck: Neck: normal visual inspection and lymphadenopathy Chest: Chest palpation & inspection: normal inspection of the chest Resp: Effort & Inspection: normal respiratory effort Auscultation: clear to auscultation bilaterally Cardio: Rate: regular rate Rhythm: regular rhythm GI: GI Palp: Yes Soft to palpation Auscultation: normal bowel sounds Skin: General skin exam: normal color Rashes: no rashes Wounds: no wounds Neuro: General: patient oriented x3, moves all extremities, no meningeal signs and CN's II-XI intact bilaterally Cranial nerves: Yes Nystagmus not present Speech: Abnormal speech present (a bit muffled) Extrem: General: normal to inspection and no clubbing, cyanosis or edema Psych: Mental Status: mental status grossly normal Affect: normal affect Attitude: cooperative Course Vital Signs Vital signs: Vital Signs
[2023-02-20] MEDS: methylPREDNISolone SOD SUCC 125 MG VIAL IV PUSH (10:15)
[2023-02-20 10:36] LABS: Basophils Absolute Auto 0.1 K/mm3 (0.0-0.1); Eosinophils Absolute Auto 0.2 K/mm3 (0-0.3); Eosinophils Percent Auto 3.5 % (0-4.4); Hematocrit 45.8 % (42.0-52.0); Hemoglobin 15.8 g/dL (14.0-18.0); Immature Granulocyte Absolute 0.03 K/mm3 (0.00-0.031); Immature Granulocyte Percent A 0.6 % (0-0.5); Lymphocytes Absolute Auto 1.68 K/mm3 (0.9-3.2); Lymphocytes Percent Auto 32.4 % (18.3-44.2); Mean Corpuscular HGB Conc 34.5 g/dl (32-36); Mean Corpuscular Hemoglobin 31.8 pg (26-34); Mean Corpuscular Volume 92.2 fl (80-100); Mean Platelet Volume 9.8 fl (7.4-10.4); Monocytes Absolute Auto 0.5 K/mm3 (0.1-0.6); Monocytes Percent Auto 8.9 % (2.6-8.5); Neutrophils Absolute Auto 2.8 K/mm3 (1.3-6.7); Neutrophils Percent Auto 53.6 % (45.5-73.1); Platelet Count Result 155 k/mm3 (150-375); Red Blood Count 4.97 M/mm3 (4.6-6.20); Red Cell Distribution Width 13.2 % (11.5-14.5); White Blood Count 5.2 K/mm3 (4.5-10.0)
[2023-02-20 10:48] LABS: Alanine Aminotransferase 49 U/L (6-50); Albumin Level 4.2 g/dL (3.5-5.1); Alkaline Phosphatase 144 U/L (38-126); Anion Gap 11 mmol/L (8-16); Aspartate Amino Transferase 45 U/L (17-59); Bilirubin,Total 0.7 mg/dL (0.2-1.3); Blood Urea Nitrogen 14 mg/dL (9-20); Carbon Dioxide 25 mmol/L (22-30); Chloride 103 mmol/L (98-107); Estimated Glomerular Filt Rate > 60; Glucose 195 mg/dL (65-110); Potassium 4.4 mmol/L (3.4-5.0); Sodium 139 mmol/L (137-145)
[2023-02-20 11:00] LABS: Strep Group A RT-PCR NOT DETECTED (Negative)
== END 2023-02-20 14:04 | disposition home or self-care (01) ==
PROVIDERS: Emergency Provider Emergency Medicine
DX: K12.2 Cellulitis and abscess of mouth (principal); E11.9 Type 2 diabetes mellitus without complications; I10 Essential (primary) hypertension; K76.9 Liver disease, unspecified; K21.9 Gastro-esophageal reflux disease without esophagitis; G47.30 Sleep apnea, unspecified; M19.90 Unspecified osteoarthritis, unspecified site; F41.9 Anxiety disorder, unspecified; F32.A Depression, unspecified; F43.10 Post-traumatic stress disorder, unspecified; Z87.891 Personal history of nicotine dependence; Z87.442 Personal history of urinary calculi; Z90.49 Acquired absence of other specified parts of digestive tract; Z79.4 Long term (current) use of insulin; Z79.84 Long term (current) use of oral hypoglycemic drugs; Z79.85 Long-term (current) use of injectable non-insulin antidiabetic drugs; Z79.82 Long term (current) use of aspirin
CPT/HCPCS: 36415; 70490; 80053; 85025; 87040; 87651; 96374; 99284; J2930

== ENCOUNTER 2023-09-11 17:40 | Emergency (ER) | payer OTHER, SELFPAY ==
[2023-09-11] VITALS (7 sets, daily range): BP systolic 139–146; BP diastolic 72–84; PULSE 73–96; RESP 14–20; TEMP 36.7; O2SAT 91–96
[2023-09-11] MEDS: ACETAMINOPHEN 500 MG TABLET 1000 MG PO (20:27)
[2023-09-11] MEDS: KETOROLAC 15 MG/ML VIAL (*BKC) IV PUSH (20:28)
[2023-09-11] MEDS: GABAPENTIN 300 MG CAPSULE 600 MG PO (20:28)
--- NOTE | 2023-09-11 20:52 | ED.GENADULT ---
HPI - General Adult General Chief complaint: Unspecified Stated complaint: fibro flare up Time Seen by Provider: 09/11/23 19:01 History of Present Illness HPI narrative: This is a 53-year-old male with fibromyalgia and PTSD presenting with a pain crisis. Patient says that started 3:00 p.m. today started have pain all over his entire body. It is debilitating. He has 4-5 episodes like this a month. patient has taken 1 cyclobenzaprine without relief. Related Data Home Medications Medication Instructions Recorded Confirmed acetaminophen 500 mg capsule 1,000 mg PO Q8-10H PRN Pain 07/02/19 12/17/20 aspirin 81 mg tablet,delayed 81 mg PO DAILY 07/02/19 12/17/20 release insulin glulisine U-100 100 76 unit subcut HS 07/02/19 12/17/20 unit/mL subcutaneous pen lactulose 10 gram/15 mL oral 20 g PO EVERY OTHER DAY 07/02/19 12/17/20 solution liraglutide 0.6 mg/0.1 mL (18 mg/3 1.2 mg subcut DAILY 07/02/19 12/17/20 mL) subcutaneous pen injector (Victoza 2-Felix) metformin 500 mg 24 hr 2,000 mg PO HS 07/02/19 12/17/20 tablet,extended release (gastric retention) prazosin 2 mg capsule 2 mg PO HS 07/02/19 12/17/20 sildenafil 100 mg tablet 50 mg PO WEEKLY PRN Erectile 07/02/19 12/17/20 Dysfunction trazodone 100 mg tablet 200 mg PO HS 07/02/19 12/17/20 diphenhydramine HCl 50 mg capsule 50 mg PO HS 12/17/20 12/17/20 lorazepam 2 mg tablet 2 mg PO TID PRN Anxiety 12/17/20 12/17/20 Allergies Allergy/AdvReac Type Severity Reaction Status Date / Time Iodine and Iodide Containing Allergy Severe HIVES, Verified 09/11/23 18:38 Produc SWELLING shellfish derived Allergy Severe Hives,SWELL Verified 09/11/23 18:38 ING PMFSH Past Medical History Medical History Angina at rest Anxiety Arthritis Back pain Depression Diverticulitis GERD (gastroesophageal reflux disease) Hypertension Kidney stones Liver disease PTSD (post-traumatic stress disorder) Seizures Sleep apnea Type 2 diabetes mellitus Surgical History Surgical History H/O inguinal hernia repair History of partial colectomy Family History Family History Mother History of blood clots Diabetes mellitus Sibling Cerebrovascular accident Father Hypertension Prostate carcinoma Social History Social History Smoking status: Former smoker Tobacco type: cigarettes Smokeless tobacco user: chewing tobacco Alcohol intake: never Substance use: never Gender identity (if verbalized by the patient): Male Spiritual care concerns: No Exam Narrative: APPEARANCE: Patient is sitting in a wheelchair shaking, he yelps in pain when he touches any part of his body, Head: atraumatic. EYES: EOMI, NOSE: Atraumatic NECK: Trachea midline RESPIRATORY: No increased rate of breathing CARDIOVASCULAR: RRR, ABDOMINAL: Non-distended MUSCULOSKELETAl: No obvious deformities NEURO: Alert. Moving 4/4 extremities SKIN:: Warm, dry. Normal color PSYCHIATRIC: Normal affect Course Vital Signs Vital signs: Vital Signs Temperature 98.0 F 09/11/23 17:59 Pulse Rate 96 09/11/23 17:59 Respiratory Rate 16 09/11/23 17:59 Pulse Oximetry 94 09/11/23 17:59 Oxygen Delivery Room Air 09/11/23 17:59 Temperature 98.0 F 09/11/23 17:59 Pulse Rate 96 09/11/23 17:59 Respiratory Rate 16 09/11/23 17:59 Pulse Oximetry 94 09/11/23 17:59 Oxygen Delivery Room Air 09/11/23 17:59 Medical Decision Making MDM Narrative Medical decision making narrative: -Course: 53-year-old male with fibromyalgia presenting with a fibromylagia pain crisis. Discussed different alternatives we have agreed on a ketamine infusion. Patient found significant relief the ketamine infusion and was requesting another. Patient will be d
--- NOTE | 2023-09-11 20:57 | ED.GENADULT ---
HPI - General Adult General Chief complaint: Unspecified Stated complaint: fibro flare up Time Seen by Provider: 09/11/23 19:01 Related Data Home Medications Medication Instructions Recorded Confirmed acetaminophen 500 mg capsule 1,000 mg PO Q8-10H PRN Pain 07/02/19 12/17/20 aspirin 81 mg tablet,delayed 81 mg PO DAILY 07/02/19 12/17/20 release insulin glulisine U-100 100 76 unit subcut HS 07/02/19 12/17/20 unit/mL subcutaneous pen lactulose 10 gram/15 mL oral 20 g PO EVERY OTHER DAY 07/02/19 12/17/20 solution liraglutide 0.6 mg/0.1 mL (18 mg/3 1.2 mg subcut DAILY 07/02/19 12/17/20 mL) subcutaneous pen injector (Victoza 2-Feilx) metformin 500 mg 24 hr 2,000 mg PO HS 07/02/19 12/17/20 tablet,extended release (gastric retention) prazosin 2 mg capsule 2 mg PO HS 07/02/19 12/17/20 sildenafil 100 mg tablet 50 mg PO WEEKLY PRN Erectile 07/02/19 12/17/20 Dysfunction trazodone 100 mg tablet 200 mg PO HS 07/02/19 12/17/20 diphenhydramine HCl 50 mg capsule 50 mg PO HS 12/17/20 12/17/20 lorazepam 2 mg tablet 2 mg PO TID PRN Anxiety 12/17/20 12/17/20 Allergies Allergy/AdvReac Type Severity Reaction Status Date / Time Iodine and Iodide Containing Allergy Severe HIVES, Verified 09/11/23 18:38 Produc SWELLING shellfish derived Allergy Severe Hives,SWELL Verified 09/11/23 18:38 ING PMFSH Past Medical History Medical History Angina at rest Anxiety Arthritis Back pain Depression Diverticulitis GERD (gastroesophageal reflux disease) Hypertension Kidney stones Liver disease PTSD (post-traumatic stress disorder) Seizures Sleep apnea Type 2 diabetes mellitus Surgical History Surgical History H/O inguinal hernia repair History of partial colectomy Family History Family History Mother History of blood clots Diabetes mellitus Sibling Cerebrovascular accident Father Hypertension Prostate carcinoma Social History Social History Smoking status: Former smoker Tobacco type: cigarettes Smokeless tobacco user: chewing tobacco Alcohol intake: never Substance use: never Gender identity (if verbalized by the patient): Male Spiritual care concerns: No Course Vital Signs Vital signs: Vital Signs Temperature 98.0 F 09/11/23 17:59 Pulse Rate 96 09/11/23 17:59 Respiratory Rate 16 09/11/23 17:59 Pulse Oximetry 94 09/11/23 17:59 Oxygen Delivery Room Air 09/11/23 17:59 Temperature 98.0 F 09/11/23 17:59 Pulse Rate 76 09/11/23 20:46 Respiratory Rate 17 09/11/23 20:46 Blood Pressure 141/78 H 09/11/23 20:45 Pulse Oximetry 96 09/11/23 20:46 Oxygen Delivery Room Air 09/11/23 17:59 Medical Decision Making Vital Signs Vital Signs: Vital Signs Temperature 98.0 F 09/11/23 17:59 Pulse Rate 96 09/11/23 17:59 Respiratory Rate 16 09/11/23 17:59 Pulse Oximetry 94 09/11/23 17:59 Oxygen Delivery Room Air 09/11/23 17:59 Temperature 98.0 F 09/11/23 17:59 Pulse Rate 76 09/11/23 20:46 Respiratory Rate 17 09/11/23 20:46 Blood Pressure 141/78 H 09/11/23 20:45 Pulse Oximetry 96 09/11/23 20:46 Oxygen Delivery Room Air 09/11/23 17:59 Discharge Plan Discharge Clinical Impression: Fibromyalgia Patient Disposition: Home, Self-Care Condition: Stable Instructions: Antibiotic Form, Fibromyalgia (ED) Additional Instructions: Please follow-up with your pain doctor for further management. Return if you develop severe pain. Prescriptions: No Action aspirin 81 mg Tablet,Delayed Release (Dr/Ec) 81 mg PO DAILY insulin glulisine U-100 100 unit/mL Insulin Pen 76 unit SUBCUT HS sildenafil 100 mg Tablet 50 mg PO WEEKLY PRN (Reason: Erectile Dysfunction) trazodone 100
--- NOTE | 2023-09-11 22:10 | PC.NURSE ---
Patient able to ambulate independently and states his pain has been resolved. When asked how patient's pain was he relied what pain?
== END 2023-09-11 22:25 | disposition home or self-care (01) ==
PROVIDERS: Emergency Provider Emergency Medicine
DX: M79.7 Fibromyalgia (principal); I10 Essential (primary) hypertension; E11.9 Type 2 diabetes mellitus without complications; K76.9 Liver disease, unspecified; G47.30 Sleep apnea, unspecified; K21.9 Gastro-esophageal reflux disease without esophagitis; M19.90 Unspecified osteoarthritis, unspecified site; F43.10 Post-traumatic stress disorder, unspecified; Z87.442 Personal history of urinary calculi; Z87.891 Personal history of nicotine dependence; Z90.49 Acquired absence of other specified parts of digestive tract; Z79.84 Long term (current) use of oral hypoglycemic drugs; Z79.4 Long term (current) use of insulin; Z79.82 Long term (current) use of aspirin
CPT/HCPCS: 96374; 99284; A9270; J1885

== ENCOUNTER 2023-10-18 19:05 | Observation (INO) | payer OTHER, SELFPAY ==
[2023-10-18] VITALS (9 sets, daily range): BP systolic 135–195; BP diastolic 53–100; PULSE 60–76; RESP 10–24; TEMP 36.4; O2SAT 94–98
--- NOTE | ~2023-10-18 | CT_ITS ---
EXAMINATION: CT abdomen pelvis wo con DATE: 10/18/2023 21:33 INDICATION: Abdominal pain TECHNIQUE: Computed tomography (CT) of the abdomen and pelvis was performed without intravenous contr ast. The dose-length product (DLP) was 1809.76 mGy-cm. Automated exposure control and iterative recon struction technique were employed. COMPARISON: 06/25/2022 FINDINGS: Minimal dependent atelectasis is present in the lung bases. The heart size is normal. The l iver, spleen, pancreas, gallbladder, and adrenal glands are normal. The kidneys are unremarkable. No pathologically enlarged abdominal or pelvic lymph nodes are identified. The appendix is normal. There are surgical changes in the rectum. There are dilated loops of small bowel in the midabdomen with a relative transition in the right midabdomen upstream of which there is some performed small bowel fec es. The distal small bowel is somewhat decompressed. There is mild lumbar spondylosis. IMPRESSION: 1. Mildly dilated small bowel with small bowel feces and relative transition point in the right mid a bdomen which could reflect partial obstruction. Reviewed, dictated and finalized at location F. IMPRESSION: 1. Mildly dilated small bowel with small bowel feces and relative transition po int in the right mid abdomen which could reflect partial obstruction.
[2023-10-18 19:49] LABS: Basophils Absolute Auto 0.1 K/mm3 (0.0-0.1); Basophils Percent Auto 0.5 % (0.2-1.2); Eosinophils Absolute Auto 0.1 K/mm3 (0-0.3); Eosinophils Percent Auto 1.3 % (0-4.4); Immature Granulocyte Absolute 0.03 K/mm3 (0.00-0.031); Immature Granulocyte Percent A 0.3 % (0-0.5); Lymphocytes Absolute Auto 1.97 K/mm3 (0.9-3.2); Lymphocytes Percent Auto 21.1 % (18.3-44.2); Mean Corpuscular HGB Conc 34.7 g/dl (32-36); Mean Corpuscular Hemoglobin 31.7 pg (26-34); Mean Corpuscular Volume 91.2 fl (80-100); Mean Platelet Volume 9.9 fl (7.4-10.4); Monocytes Absolute Auto 0.5 K/mm3 (0.1-0.6); Monocytes Percent Auto 5.6 % (2.6-8.5); Neutrophils Absolute Auto 6.6 K/mm3 (1.3-6.7); Neutrophils Percent Auto 71.2 % (45.5-73.1); Platelet Count Result 196 k/mm3 (150-375); Red Blood Count 5.37 M/mm3 (4.6-6.20); Red Cell Distribution Width 12.9 % (11.5-14.5); White Blood Count 9.3 K/mm3 (4.5-10.0)
[2023-10-18 20:00] LABS: Alanine Aminotransferase 49 U/L (6-50); Albumin Level 4.6 g/dL (3.5-5.1); Alkaline Phosphatase 150 U/L (38-126); Anion Gap 6 mmol/L (8-16); Aspartate Amino Transferase 38 U/L (17-59); Bilirubin,Total 0.7 mg/dL (0.2-1.3); Blood Urea Nitrogen 13 mg/dL (9-20); Calcium 9.8 mg/dL (8.4-10.2); Carbon Dioxide 26 mmol/L (22-30); Chloride 104 mmol/L (98-107); Estimated CRCL calculation 110 ml/min; Estimated Glomerular Filt Rate > 60; Glucose 228 mg/dL (65-110); Lipase 76 U/L (23-300); Potassium 4.5 mmol/L (3.4-5.0); Sodium 136 mmol/L (137-145)
[2023-10-18 20:03] LABS: Appearance Urine Clear (Clear); Bilirubin Urine Negative (Negative); Blood Urine Negative (Negative); Color Urine Yellow (Yellow); Glucose Urine UA 3+ mg/dL (Negative); Ketones Urine Negative (Negative); Leukocyte Esterase Ur Negative LEU/UL (Negative); Nitrate Urine Negative (Negative); Protein Urine Negative (Negative); Urobilinogen Urine 0.2 mg/dL (<2.0)
[2023-10-18 20:07] LABS: Add Urine Microscopic? NO; Specific Grav Ur 1.037 (1.001-1.035)
--- NOTE | 2023-10-18 21:02 | ED.GENADULT ---
HPI - General Adult General Chief complaint: Abdominal Pain Stated complaint: severe pain in abd Time Seen by Provider: 10/18/23 20:18 History of Present Illness HPI narrative: This is a 53-year-old male with fibromyalgia and ptsd presenting for abdominal pain. Patient has been suffering pain since Monday. It is stabbing started right his abdomen is now on the left. It fluctuates throughout day. He has had pain this says he factors. He has had diarrhea for several days with his last bowel movement earlier today. Patient states he has stopped passing gas no nausea or vomiting. Denies fever chills chest pain difficulty breathing. No urinary symptoms. Patient takes pregabalin for pain. Recently started on naltrexone. Related Data Home Medications Medication Instructions Recorded Confirmed acetaminophen 500 mg capsule 1,000 mg PO Q8-10H PRN Pain 07/02/19 12/17/20 aspirin 81 mg tablet,delayed 81 mg PO DAILY 07/02/19 12/17/20 release insulin glulisine U-100 100 76 unit subcut HS 07/02/19 12/17/20 unit/mL subcutaneous pen lactulose 10 gram/15 mL oral 20 g PO EVERY OTHER DAY 07/02/19 12/17/20 solution liraglutide 0.6 mg/0.1 mL (18 mg/3 1.2 mg subcut DAILY 07/02/19 12/17/20 mL) subcutaneous pen injector (Victoza 2-Felix) metformin 500 mg 24 hr 2,000 mg PO HS 07/02/19 12/17/20 tablet,extended release (gastric retention) prazosin 2 mg capsule 2 mg PO HS 07/02/19 12/17/20 sildenafil 100 mg tablet 50 mg PO WEEKLY PRN Erectile 07/02/19 12/17/20 Dysfunction trazodone 100 mg tablet 200 mg PO HS 07/02/19 12/17/20 diphenhydramine HCl 50 mg capsule 50 mg PO HS 12/17/20 12/17/20 lorazepam 2 mg tablet 2 mg PO TID PRN Anxiety 12/17/20 12/17/20 Allergies Allergy/AdvReac Type Severity Reaction Status Date / Time Iodine and Iodide Containing Allergy Severe HIVES, Verified 09/11/23 18:38 Produc SWELLING shellfish derived Allergy Severe Hives,SWELL Verified 09/11/23 18:38 ING PMFSH Past Medical History Medical History Angina at rest Anxiety Arthritis Back pain Depression Diverticulitis GERD (gastroesophageal reflux disease) Hypertension Kidney stones Liver disease PTSD (post-traumatic stress disorder) Seizures Sleep apnea Type 2 diabetes mellitus Surgical History Surgical History H/O inguinal hernia repair History of partial colectomy Family History Family History Mother History of blood clots Diabetes mellitus Sibling Cerebrovascular accident Father Hypertension Prostate carcinoma Social History Social History Smoking status: Former smoker Tobacco type: cigarettes Smokeless tobacco user: chewing tobacco Alcohol intake: never Substance use: never Gender identity (if verbalized by the patient): Male Spiritual care concerns: No Exam Narrative: APPEARANCE: No apparent distress. Head: atraumatic. EYES: EOMI, NOSE: Atraumatic NECK: Trachea midline RESPIRATORY: No increased rate of breathing, CTAB CARDIOVASCULAR: RRR, ABDOMINAL: Abdomen is diffusely tender with voluntary guarding MUSCULOSKELETAl: No obvious deformities NEURO: Alert. Moving 4/4 extremities SKIN:: Warm, dry. Normal color PSYCHIATRIC: Normal affect Course Vital Signs Vital signs: Vital Signs Temperature 97.5 F L 10/18/23 19:37 Pulse Rate 74 10/18/23 19:37 Respiratory Rate 18 10/18/23 19:37 Blood Pressure 136/79 10/18/23 19:37 Pulse Oximetry 98 10/18/23 19:37 Oxygen Delivery Room Air 10/18/23 19:37 Temperature 97.5 F L 10/18/23 19:37 Pulse Rate 74 10/18/23 19:37 Respiratory Rate 18 10/18/23 19:37 Blood Pressure 136/79 10/18/23 19:37 Pulse Oximetry 98 10/18/23 19:37 Oxygen Delivery Room Air 10/18/23 19:37 Medical Decisi
[2023-10-18] MEDS: ONDANSETRON INJ 4 MG/2 ML VIAL IV PUSH (21:57)
[2023-10-18] MEDS: HYDROmorphone HCL INJ (*CRX) 1 MG/ML SYR 0.5 MG IV PUSH (21:57)
[2023-10-18] MEDS: SODIUM CHLORIDE 0.9% IV 2,000 ML 999 ML IV CONT (22:00)
[2023-10-18 22:11] LABS: Glucose Point of Care 140 mg/dl (65-105)
[2023-10-18] MEDS: KETOROLAC 30 MG/ML VIAL (*BKC) IV PUSH (23:09)
[2023-10-19] VITALS (8 sets, daily range): BP systolic 132–167; BP diastolic 57–85; PULSE 62–93; RESP 12–20; TEMP 36–36.4; O2SAT 92–100; BMI 34.1
--- NOTE | 2023-10-19 01:15 | ADMGEN ---
This patient, Jc Herring, was admitted to [facility] Surg Room 329-01. Patient/family oriented to hospital policies and general routines including ID bracelet, bed and alarms, visiting hours, pain management, procedures, bathroom and other care routines, personal items, smoking policy, room service/diet, and visiting hours. Information on how to activate the Rapid Response Team has been discussed. Patient/Family are encouraged to report perceived risks to care and to ask questions if they do not understand what they are told or what they should do.
[2023-10-19] MEDS: HYDROmorphone HCL INJ (*CRX) 1 MG/ML SYR IV PUSH ×4 (02:05→20:38)
[2023-10-19] MEDS: PRAZOSIN HCL 1 MG CAPSULE 4 MG PO ×2 (02:24→20:40)
[2023-10-19] MEDS: HYDROmorphone HCL INJ (*CRX) 1 MG/ML SYR 2 MG IV PUSH (02:30)
[2023-10-19] MEDS: LORazepam INJ (*CRX) 2 MG/ML VIAL IV PUSH (02:30)
[2023-10-19] MEDS: KETOROLAC 30 MG/ML VIAL (*BKC) IV PUSH (06:05)
[2023-10-19 07:19] LABS: Hematocrit 46.7 % (42.0-52.0); Hemoglobin 16.1 g/dL (14.0-18.0); Immature Platelet Fraction Pct 3.4 % (0.9-11.2); Mean Corpuscular HGB Conc 34.5 g/dl (32-36); Mean Corpuscular Hemoglobin 31.5 pg (26-34); Mean Corpuscular Volume 91.4 fl (80-100); Mean Platelet Volume 10.1 fl (7.4-10.4); Platelet Count Result 141 k/mm3 (150-375); Red Blood Count 5.11 M/mm3 (4.6-6.20); Red Cell Distribution Width 12.8 % (11.5-14.5); White Blood Count 6.9 K/mm3 (4.5-10.0)
[2023-10-19 07:52] LABS: Alanine Aminotransferase 48 U/L (6-50); Alkaline Phosphatase 112 U/L (38-126); Anion Gap 8 mmol/L (8-16); Aspartate Amino Transferase 44 U/L (17-59); Bilirubin,Total 0.9 mg/dL (0.2-1.3); Blood Urea Nitrogen 14 mg/dL (9-20); Calcium 9.3 mg/dL (8.4-10.2); Carbon Dioxide 24 mmol/L (22-30); Chloride 105 mmol/L (98-107); Estimated CRCL calculation 118 ml/min; Estimated Glomerular Filt Rate > 60; Glucose 194 mg/dL (65-110); Potassium 4.5 mmol/L (3.4-5.0); Sodium 137 mmol/L (137-145)
[2023-10-19 07:54] LABS: Glucose Point of Care 193 mg/dl (65-105)
--- NOTE | 2023-10-19 08:50 | PM.IMHP ---
H&P: HPI History of Present Illness Date/Time: 10/19/23 08:50 Chief Complaint: ABD pain Narrative: Patient is a 53 year old pleasant male who presented to the ED with compliant of worsening ABD pain and constipation. Patient does have some traumatic memory issues and is bedside assisting with H&P most information regarding history is from . Patient has past medical history of pseudoseizures, fibromyalgia, COPD, PTSD, chronic hypoxia, diabetes, diverticulitis with previous colectomy and BPH. Patient reported that he started having diarrhea a week ago with worsening ABD pain and eventually stopped having BM's. Patient denied CP, SOB, Vomiting, Dizziness, fever or chills. Patient did state he has been nauseous but has not vomited. Patient labs on admission were unremarkable, vitals stable however ST ABD did show possible partial small bowel obstruction. Patient was admitted to the medical unit for further evaluation and treatment with a consult to surgery, currently NPO will advance per surgery, pain management, IV fluids and monitor for BM/flatulence. Review of Systems Review of Systems: All systems reviewed & are unremarkable except as noted in HPI and below PMFSH Past Medical History Medical History Angina at rest Anxiety Arthritis Back pain Depression Diverticulitis GERD (gastroesophageal reflux disease) Hypertension Kidney stones Liver disease PTSD (post-traumatic stress disorder) Seizures Sleep apnea Type 2 diabetes mellitus Surgical History Surgical History H/O inguinal hernia repair History of partial colectomy Family History Family History Mother History of blood clots Diabetes mellitus Sibling Cerebrovascular accident Father Hypertension Prostate carcinoma Social History Social History Smoking status: Former smoker Tobacco type: cigarettes Smokeless tobacco user: chewing tobacco Alcohol intake: never Substance use: never Do You Feel Safe in your Home?: Yes Lack of Transportation: YES Lack of Food: Never True Current Housing: I Have Housing Concerned About Future Housing: No Difficulty Paying Gas/Electric Bills: No Difficulty Paying for Meds: No Currently Unemployed: No Education: High School Diploma/GED Difficulty w/ Childcare or Family Care: No Gender identity (if verbalized by the patient): Male Spiritual care concerns: No Meds Home Medications and Allergies Home Medications Medication Instructions Recorded Confirmed Type insulin glulisine U-100 100 76 unit subcut HS 07/02/19 10/19/23 History unit/mL subcutaneous pen lactulose 10 gram/15 mL oral 20 g PO DAILY 07/02/19 10/19/23 History solution metformin 500 mg 24 hr 2,000 mg PO HS 07/02/19 10/19/23 History tablet,extended release (gastric retention) prazosin 2 mg capsule 4 mg PO HS 07/02/19 10/19/23 History sildenafil 100 mg tablet 50 mg PO WEEKLY PRN Erectile 07/02/19 10/19/23 History Dysfunction trazodone 100 mg tablet 200 mg PO HS 07/02/19 10/19/23 History albuterol sulfate 90 mcg/actuation 2 puff inhalation QID PRN 07/25/21 10/19/23 Rx aerosol inhaler (Ventolin HFA) shortness of breath or wheezing #8.5 grams cetirizine 10 mg capsule (Zyrtec) 10 mg PO DAILY PRN Itching 10/19/23 10/19/23 History cholecalciferol (vitamin D3) 50 100 mcg PO DAILY 10/19/23 10/19/23 History mcg (2,000 unit) capsule cyclobenzaprine 10 mg tablet 10 mg PO TID PRN Muscle Spasticity 10/19/23 10/19/23 History diclofenac sodium 1 % topical gel 4 g topical QID PRN Pain 10/19/23 10/19/23 History empagliflozin 25 mg tablet 25 mg PO DAILY 10/19/23 10/19/23 History ezetimibe 10 mg tablet 10 mg PO DAILY 10/19/23 10/19/23 History fluticasone 250 mcg-salmeterol 50 1 i
[2023-10-19] MEDS: FAMOTIDINE 20 MG/2 ML VIAL IV PUSH ×2 (10:01→20:40)
--- NOTE | 2023-10-19 10:28 | PM.CNGS ---
Assessment and Plan Assessment and plan (1) Partial obstruction of small intestine: Code(s): K56.600 - Partial intestinal obstruction, unspecified as to cause Status: Acute Assessment and Plan: CT scan showed mildly dilated small bowel, possible partial small-bowel obstruction. Given his history diarrhea for the past 5 days leading up to his symptoms, this seems more likely this is gastroenteritis and possibly an ileus vs less likely a partial small-bowel obstruction from intraabdominal adhesions. Clinically, the patient has improved this morning. No peritoneal signs on exam. Abdominal pain has improved and he is not complaining of any nausea. No vomiting since admission. Will defer NG tube placement unless he begins vomiting. Will start clear liquids this morning, and continue to monitor with serial abdominal exams. (2) Gastroenteritis: Code(s): K52.9 - Noninfective gastroenteritis and colitis, unspecified Status: Acute Assessment and Plan: Diarrhea for the past 5 days. If diarrhea returns, then could consider stool studies. (3) Fibromyalgia: Code(s): M79.7 - Fibromyalgia Status: Acute (4) PTSD (post-traumatic stress disorder): Code(s): F43.10 - Post-traumatic stress disorder, unspecified Status: Acute (5) Type 2 diabetes mellitus: Code(s): E11.9 - Type 2 diabetes mellitus without complications Status: Acute Plan I have discussed the patient's case and plan of care with Dr. Butts. History of Present Illness Consult details Consult date: 10/19/23 Reason for consult: other (Possible small bowel obstruction) Requesting physician: Anshu Patel MD Narrative: This is a 53-year-old man with a history of fibromyalgia, PTSD, and multiple other medical problems, who we have been asked to see in surgical consultation for a possible small-bowel obstruction. He reports symptoms started 5 days ago when he developed diarrhea. He reports having 8-9 bowel movements a day of liquid stool for the past 5 days. In the past few days, he started to developed generalized lower abdominal pain. Initially the pain was mild. He then developed bloating and felt that his abdomen became distended yesterday. His pain became more severe yesterday and was coming in waves. Due to his unrelenting pain, he presented to the ER for further evaluation. Labs essentially unremarkable. CT scan of the abdomen and pelvis showed mildly dilated small bowel with small bowel feces and relative transition point in the right mid abdomen which could reflect partial obstruction. The patient was admitted to the hospitalist service. NG tube has been deferred. He denies any vomiting other than 1 small episode of emesis in the ER due to the severe pain. He denies any nausea this morning. He is actually hungry and thirsty and requesting liquids. His abdominal pain, bloating, and distention has improved since admission. He denies any flatus or bowel movements today. He reports his last bowel movement was yesterday before coming into the ER and was still liquid diarrhea. Denies having a small-bowel obstruction in the past. The patient reports having a colon resection for diverticulitis at the [facility] in 1996. He reportedly had to be taken back for an exploratory surgery during the hospitalization due to bleeding, reportedly from his bladder. He also reports having an open right inguinal hernia repair as a child. No other abdominal surgeries. Review of Systems Review of Systems: All systems reviewed & are unremarkable except as noted in HPI and below PMFSH Past Medical History Medical History Angina at rest Anxiety Arthritis Back pain Depression Diverticulitis GERD (gastroesophageal reflux disease) Hypertension Kidney stones Liver disease PTSD (post-traumatic stress disorder) Seizures Sleep apnea Type 2 diabetes mellitus Surgical
[2023-10-19] MEDS: SODIUM CHLORIDE 0.9% IV 1,000 ML 100 ML IV CONT (10:45)
[2023-10-19 11:25] LABS: Glucose Point of Care 180 mg/dl (65-105)
[2023-10-19] MEDS: CYCLOBENZAPRINE HCL 10 MG TABLET PO (15:17)
[2023-10-19 16:46] LABS: Glucose Point of Care 218 mg/dl (65-105)
[2023-10-19] MEDS: MICONAZOLE NITRATE 2% CREAM 30 GM TUBE 1 APPLIC TOPICAL (17:06)
[2023-10-19] MEDS: OMEGA 3 POLYUNSAT FATTY ACIDS 1 GM CAP 2 GM PO (17:07)
[2023-10-19] MEDS: traZODone HCL 50 MG TABLET 200 MG PO (20:39)
[2023-10-19] MEDS: PREGABALIN (*CRX) 50 MG CAPSULE 100 MG PO (20:40)
[2023-10-19] MEDS: PREGABALIN (*CRX) 50 MG CAPSULE 200 MG PO (20:40)
[2023-10-19 20:59] LABS: Glucose Point of Care 198 mg/dl (65-105)
[2023-10-20 06:00] VITALS: BP 133/64; PULSE 74; RESP 18; TEMP 36.3; O2SAT 98
[2023-10-20 06:33] LABS: Hematocrit 44.6 % (42.0-52.0); Hemoglobin 15.1 g/dL (14.0-18.0); Mean Corpuscular HGB Conc 33.9 g/dl (32-36); Mean Corpuscular Hemoglobin 31.5 pg (26-34); Mean Corpuscular Volume 93.1 fl (80-100); Mean Platelet Volume 10.2 fl (7.4-10.4); Platelet Count Result 141 k/mm3 (150-375); Red Blood Count 4.79 M/mm3 (4.6-6.20); Red Cell Distribution Width 12.9 % (11.5-14.5); White Blood Count 5.7 K/mm3 (4.5-10.0)
[2023-10-20 06:48] LABS: Alanine Aminotransferase 46 U/L (6-50); Albumin Level 3.6 g/dL (3.5-5.1); Alkaline Phosphatase 86 U/L (38-126); Anion Gap 5 mmol/L (8-16); Aspartate Amino Transferase 36 U/L (17-59); Bilirubin,Total 0.8 mg/dL (0.2-1.3); Blood Urea Nitrogen 14 mg/dL (9-20); Calcium 8.4 mg/dL (8.4-10.2); Carbon Dioxide 25 mmol/L (22-30); Chloride 107 mmol/L (98-107); Estimated CRCL calculation 118 ml/min; Estimated Glomerular Filt Rate > 60; Glucose 123 mg/dL (65-110); Potassium 3.9 mmol/L (3.4-5.0); Sodium 137 mmol/L (137-145)
[2023-10-20] MEDS: SODIUM CHLORIDE 0.9% IV 1,000 ML 100 ML IV CONT (07:46)
[2023-10-20 07:49] LABS: Glucose Point of Care 132 mg/dl (65-105)
[2023-10-20] MEDS: CYCLOBENZAPRINE HCL 10 MG TABLET PO (09:08)
[2023-10-20] MEDS: polyethylene glycoL 3350 17 GM POWD.PACK PO (09:09)
[2023-10-20] MEDS: LACTULOSE 20 GM/30 ML UDC PO (09:09)
[2023-10-20] MEDS: PREGABALIN (*CRX) 50 MG CAPSULE 200 MG PO ×2 (09:10→20:58)
[2023-10-20] MEDS: CHOLECALCIFEROL 1,000 UNITS TABLET 4000 UNITS PO (09:10)
[2023-10-20] MEDS: PANTOPRAZOLE 40 MG TABLET PO (09:10)
[2023-10-20] MEDS: TAMSULOSIN HCL 0.4 MG CAPSULE PO (09:10)
[2023-10-20] MEDS: EMPAGLIFLOZIN 25 MG TABLET PO (09:10)
[2023-10-20] MEDS: OMEGA 3 POLYUNSAT FATTY ACIDS 1 GM CAP 2 GM PO ×2 (09:10→16:46)
[2023-10-20] MEDS: FAMOTIDINE 20 MG/2 ML VIAL IV PUSH ×2 (09:10→20:58)
[2023-10-20] MEDS: EZETIMIBE 10 MG TABLET PO (09:11)
[2023-10-20] MEDS: HYDROmorphone HCL INJ (*CRX) 1 MG/ML SYR IV PUSH ×2 (09:58→16:45)
[2023-10-20 11:31] LABS: Glucose Point of Care 177 mg/dl (65-105)
[2023-10-20 14:00] VITALS: BP 117/63; PULSE 66; RESP 18; TEMP 36.5; O2SAT 95
--- NOTE | 2023-10-20 14:08 | PM.PNGS ---
Progress Note: A&P Assessment and Plan (1) Partial obstruction of small intestine: Code(s): K56.600 - Partial intestinal obstruction, unspecified as to cause Status: Acute Assessment and Plan: likely secondary to gastroenteritis, resolving at this point, cont to james diet, no acute surgical issues, will s/o, call c ?s, issues (2) Gastroenteritis: Code(s): K52.9 - Noninfective gastroenteritis and colitis, unspecified Status: Acute Assessment and Plan: improving, cont supportive treatment Subjective Subjective Date/Time Seen: 10/20/23 14:08 Interval history: some mild, diffuse abd pain, much improved since admit, +flatus, no further diarrhea, james diabetic diet Review of Systems Review of Systems: All systems reviewed & are unremarkable except as noted in HPI and below Exam Const: General: cooperative, comfortable and no acute distress Resp: Auscultation: clear to auscultation bilaterally Cardio: Rate: regular rate Rhythm: regular rhythm GI: GI Palp: Yes abdominal tenderness, Yes Soft to palpation, Yes Tenderness to palpation present (GI), No Guarding due to palpation present (GI) and No Rigid due to palpation Auscultation: normal bowel sounds Objective Data Vital Signs Vital Signs: Vital Signs - 24 hr 10/19/23 20:00 10/19/23 22:00 10/20/23 06:00 Temperature 36.4 C L 36.3 C L Pulse Rate 71 74 Respiratory Rate 18 18 Blood Pressure 139/62 133/64 Pulse Oximetry 100 98 Oxygen Delivery Room Air 10/20/23 08:00 Temperature Pulse Rate Respiratory Rate Blood Pressure Pulse Oximetry Oxygen Delivery Room Air Intake/Output Intake/Output: Intake & Output 10/17/23 10/18/23 10/19/23 10/20/23 23:59 23:59 23:59 23:59 Intake Total 1999 5569 367.7 Output Total 400 375 Balance 1999 2143 -7.3 Meds/Results Medications: Active Medications Generic Name Dose Route Start Last Admin Trade Name Freq PRN Reason Stop Dose Admin Albuterol 2 puff 10/19/23 12:51 Albuterol Sulfate (*Sp) Aerosol 1 Puff INHALATION Q6HRT PRN shortness of breath or wheezing Cyclobenzaprine HCl 10 mg 10/19/23 12:51 10/20/23 09:08 Cyclobenzaprine Hcl 10 Mg Tablet PO 10 mg TID PRN Administration Muscle Spasticity Dextrose 12.5 gm 10/19/23 06:54 Dextrose 50% 25 Gm/50 Ml Syringe IV PUSH PRN PRN Hypoglycemia Protocol Diclofenac Sodium 1 applic 10/20/23 08:04 Diclofenac Sodium 1% 100 Gm Gel (*Bkc) TOPICAL QID PRN Pain Ezetimibe 10 mg 10/20/23 09:00 10/20/23 09:11 Ezetimibe 10 Mg Tablet PO 10 mg DAILY MATT Administration Empagliflozin 25 mg 10/20/23 09:00 10/20/23 09:10 Empagliflozin 25 Mg Tablet PO 25 mg DAILY MATT Administration Famotidine 20 mg 10/19/23 09:00 10/20/23 09:10 Famotidine 20 Mg/2 Ml Vial IV PUSH 20 mg Q12HR MATT Administration Fish Oil 2 gm 10/19/23 17:00 10/20/23 09:10 Jackson 3 Polyunsat Fatty Acids 1 Gm Cap PO 2 gm BID MATT Administration Glucagon 1 mg 10/19/23 06:54 Glucagon For Inj 1 Mg Vial IM PRN PRN Hypoglycemia Protocol Glucose 15 gm 10/19/23 06:54 Glucose Oral Gel 15 Gm Of Glucse In 37.5 Gm Tube PO PRN PRN Hypoglycemia Protocol Hydromorphone HCl 1 mg 10/19/23 01:47 10/20/23 09:58 Hydromorphone Hcl Inj (*Crx) 1 Mg/Ml Syr IV PUSH 1 mg Q3H PRN Administration Pain Rated 7-10 Dextrose 1,000 mls @ 100 mls/hr 10/19/23 06:54 Dextrose 5% 1,000 Ml IVPB PRN PRN Hypoglycemia Protocol Insulin Aspart 2 - 5 units 10/19/23 08:00 10/20/23 11:33 Insulin Aspart (*Bkc) 100 Units/Ml SUB-Q Not Given TIDWM MATT Protocol Ketorolac Tromethamine 30 mg 10/18/23 22:56 10/19/23 06:05 Ketorolac 30 Mg/Ml Vial (*Bkc) IV PUSH 10/23/23 22:55 30 mg Q6H PRN Administration Pain Rated 4-6 Lactulose 20 gm 10/20/23 09:00 10/20/23 09:09 Lactulose 20 Gm/30 Ml Udc PO
--- NOTE | 2023-10-20 14:41 | P.PNIM_ITS ---
Progress Note: A&P Assessment and Plan (1) Partial obstruction of small intestine: Code(s): K56.600 - Partial intestinal obstruction, unspecified as to cause Status: Acute (2) Fibromyalgia: Code(s): M79.7 - Fibromyalgia Status: Acute Plan Partial SBO * CT with dilated small bowel with feces at transition point * Surgery consulted for any further recommendations * tolerating diet, advance as tolerated * Pain control * HX of colectomy and diverticulosis * Normal WBC * afebrile * Encourage activity Diabetes * Accu-Cheks a.c. HS * sliding scale insulin * On semiglutide at home holding * Diabetic diet * consult to dietitian * encourage lifestyle modifications and weight loss * Watch for hypoglycemia/hypoglycemic protocol ordered PTSD * ADAT * IV ativan PRN * will resume home medications for anxiety once tolerating oral intake Fibromyalgia * Resume Lyrica Code status: Full code per patient DVT prophylaxis: Lovenox Stress ulcer prophylaxis: Pepcid IV PT/OT notes: Ambulates Disposition: Patient admitted for partial SBO will see surgery for further recommendations currently NPO will advance per surgery and encourage ambulation. Subjective Date/time seen: 10/20/23 14:41 Interval history: Patient reporting continued but slightly improving GI discomfort this morning, now how localized on the right side. Gen surgery following, continue to ADAT and serial exams but does not look like we are heading towards surgical intervention. Patient passing flatus this morning, but increased his abdominal pain. Will continue supportive measures. Review of Systems Review of Systems: All systems reviewed & are unremarkable except as noted in HPI and below Exam Narrative: Physical Exam: * GENERAL: Alert and oriented x 3. No acute distress. Well-nourished. * EYES: EOMI. PERRLA. * HEENT: Moist mucous membranes. * LUNGS: Clear to auscultation bilaterally. No accessory muscle use. * CARDIOVASCULAR: RRR. No murmur. No JVD. S1-S2 * ABDOMEN: Soft, tender to palpation along right lower and upper quadrants with guarding but no rebound. non-distended. BS present. * EXTREMITIES: No edema. Non-tender * SKIN: No rashes or lesions. Skin warm, dry. * NEUROLOGIC: No focal neurological deficits. CN II-XII grossly intact * PSYCHIATRIC: Appropriate mood and affect. Objective Data Vital Signs Vital Signs: Vital Signs - 24 hr 10/19/23 20:00 10/19/23 22:00 10/20/23 06:00 Temperature 97.5 F L 97.3 F L Pulse Rate 71 74 Respiratory Rate 18 18 Blood Pressure 139/62 133/64 Pulse Oximetry 100 98 Oxygen Delivery Room Air 10/20/23 08:00 10/20/23 14:00 Temperature 97.7 F Pulse Rate 66 Respiratory Rate 18 Blood Pressure 117/63 Pulse Oximetry 95 Oxygen Delivery Room Air Intake/Output Intake/Output: Intake & Output 10/17/23 10/18/23 10/19/23 10/20/23 23:59 23:59 23:59 23:59 Intake Total 1999 6793 589.7 Output Total 400 375 Balance 1999 2143 214.7 Meds/Results Medications: Active Medications Generic Name Dose Route Start La
--- NOTE | 2023-10-20 14:41 | PM.IMPN ---
Progress Note: A&P Assessment and Plan (1) Partial obstruction of small intestine: Code(s): K56.600 - Partial intestinal obstruction, unspecified as to cause Status: Acute (2) Fibromyalgia: Code(s): M79.7 - Fibromyalgia Status: Acute Plan Partial SBO CT with dilated small bowel with feces at transition point Surgery consulted for any further recommendations tolerating diet, advance as tolerated Pain control HX of colectomy and diverticulosis Normal WBC afebrile Encourage activity Diabetes Accu-Cheks a.c. HS sliding scale insulin On semiglutide at home holding Diabetic diet consult to dietitian encourage lifestyle modifications and weight loss Watch for hypoglycemia/hypoglycemic protocol ordered PTSD ADAT IV ativan PRN will resume home medications for anxiety once tolerating oral intake Fibromyalgia Resume Lyrica Code status: Full code per patient DVT prophylaxis: Lovenox Stress ulcer prophylaxis: Pepcid IV PT/OT notes: Ambulates Disposition: Patient admitted for partial SBO will see surgery for further recommendations currently NPO will advance per surgery and encourage ambulation. Subjective Date/time seen: 10/20/23 14:41 Interval history: Patient reporting continued but slightly improving GI discomfort this morning, now how localized on the right side. Gen surgery following, continue to ADAT and serial exams but does not look like we are heading towards surgical intervention. Patient passing flatus this morning, but increased his abdominal pain. Will continue supportive measures. Review of Systems Review of Systems: All systems reviewed & are unremarkable except as noted in HPI and below Exam Narrative: Physical Exam: GENERAL: Alert and oriented x 3. No acute distress. Well-nourished. EYES: EOMI. PERRLA. HEENT: Moist mucous membranes. LUNGS: Clear to auscultation bilaterally. No accessory muscle use. CARDIOVASCULAR: RRR. No murmur. No JVD. S1-S2 ABDOMEN: Soft, tender to palpation along right lower and upper quadrants with guarding but no rebound. non-distended. BS present. EXTREMITIES: No edema. Non-tender SKIN: No rashes or lesions. Skin warm, dry. NEUROLOGIC: No focal neurological deficits. CN II-XII grossly intact PSYCHIATRIC: Appropriate mood and affect. Objective Data Vital Signs Vital Signs: Vital Signs - 24 hr 10/19/23 20:00 10/19/23 22:00 10/20/23 06:00 Temperature 97.5 F L 97.3 F L Pulse Rate 71 74 Respiratory Rate 18 18 Blood Pressure 139/62 133/64 Pulse Oximetry 100 98 Oxygen Delivery Room Air 10/20/23 08:00 10/20/23 14:00 Temperature 97.7 F Pulse Rate 66 Respiratory Rate 18 Blood Pressure 117/63 Pulse Oximetry 95 Oxygen Delivery Room Air Intake/Output Intake/Output: Intake & Output 10/17/23 10/18/23 10/19/23 10/20/23 23:59 23:59 23:59 23:59 Intake Total 1999 2543 589.7 Output Total 400 375 Balance 1999 4353 214.7 Meds/Results Medications: Active Medications Generic Name Dose Route Start Last Admin Trade Name Freq PRN Reason Stop Dose Admin Albuterol 2 puff 10/19/23 12:51 Albuterol Sulfate (*Sp) Aerosol 1 Puff INHALATION Q6HRT PRN shortness of breath or wheezing Cyclobenzaprine HCl 10 mg 10/19/23 12:51 10/20/23 09:08 Cyclobenzaprine Hcl 10 Mg Tablet PO 10 mg TID PRN Administration Muscle Spasticity Dextrose 12.5 gm 10/19/23 06:54 Dextrose 50% 25 Gm/50 Ml Syringe IV PUSH PRN PRN Hypoglycemia Protocol Diclofenac Sodium 1 applic 10/20/23 08:04 Diclofenac Sodium 1% 100 Gm Gel (*Bkc) TOPICAL QID PRN Pain Ezetimibe 10 mg 10/20/23 09:00 10/20/23 09:11 Ezetimibe 10 Mg Tablet PO 10 mg DAILY MATT Administration Empagliflozin 25 mg 10/20/23 09:00 10/20/23 09:10 Empagliflozin 25 Mg Tablet PO 25 mg DAILY MATT Administration Famotidine 20 mg
[2023-10-20 16:40] VITALS: BP 124/51; PULSE 60; RESP 18; TEMP 35.8; O2SAT 97
[2023-10-20 16:46] LABS: Glucose Point of Care 136 mg/dl (65-105)
[2023-10-20 20:52] LABS: Glucose Point of Care 206 mg/dl (65-105)
[2023-10-20] MEDS: traZODone HCL 50 MG TABLET 200 MG PO (20:58)
[2023-10-20] MEDS: PREGABALIN (*CRX) 50 MG CAPSULE 100 MG PO (20:58)
[2023-10-20] MEDS: PRAZOSIN HCL 1 MG CAPSULE 4 MG PO (20:58)
[2023-10-20] MEDS: SODIUM CHLORIDE 0.9% INJ 10 ML (20:59)
[2023-10-20] MEDS: KETOROLAC 30 MG/ML VIAL (*BKC) IV PUSH (20:59)
[2023-10-20 21:59] VITALS: BP 136/55; PULSE 58; RESP 22; TEMP 37; O2SAT 95
[2023-10-21 05:48] VITALS: BP 112/53; PULSE 59; RESP 20; TEMP 36.9; O2SAT 95
[2023-10-21 08:10] LABS: Glucose Point of Care 156 mg/dl (65-105)
[2023-10-21] MEDS: LACTULOSE 20 GM/30 ML UDC PO (08:54)
[2023-10-21] MEDS: EMPAGLIFLOZIN 25 MG TABLET PO (08:55)
[2023-10-21] MEDS: PANTOPRAZOLE 40 MG TABLET PO (08:56)
[2023-10-21] MEDS: EZETIMIBE 10 MG TABLET PO (08:57)
[2023-10-21] MEDS: OMEGA 3 POLYUNSAT FATTY ACIDS 1 GM CAP 2 GM PO (08:57)
[2023-10-21] MEDS: TAMSULOSIN HCL 0.4 MG CAPSULE PO (08:57)
[2023-10-21] MEDS: PREGABALIN (*CRX) 50 MG CAPSULE 200 MG PO (08:57)
[2023-10-21] MEDS: CHOLECALCIFEROL 1,000 UNITS TABLET 4000 UNITS PO (08:58)
[2023-10-21] MEDS: FAMOTIDINE 20 MG/2 ML VIAL IV PUSH (08:58)
[2023-10-21] MEDS: KETOROLAC 30 MG/ML VIAL (*BKC) IV PUSH (09:11)
[2023-10-21 09:15] LABS: Hematocrit 43.6 % (42.0-52.0); Mean Corpuscular HGB Conc 34.4 g/dl (32-36); Mean Platelet Volume 9.8 fl (7.4-10.4); Platelet Count Result 161 k/mm3 (150-375); Red Blood Count 4.69 M/mm3 (4.6-6.20); Red Cell Distribution Width 12.8 % (11.5-14.5); White Blood Count 4.5 K/mm3 (4.5-10.0)
[2023-10-21 09:28] LABS: Alanine Aminotransferase 40 U/L (6-50); Albumin Level 3.9 g/dL (3.5-5.1); Alkaline Phosphatase 139 U/L (38-126); Anion Gap 3 mmol/L (8-16); Aspartate Amino Transferase 36 U/L (17-59); Bilirubin,Total 0.5 mg/dL (0.2-1.3); Blood Urea Nitrogen 15 mg/dL (9-20); Calcium 8.6 mg/dL (8.4-10.2); Carbon Dioxide 28 mmol/L (22-30); Chloride 104 mmol/L (98-107); Estimated CRCL calculation 134 ml/min; Estimated Glomerular Filt Rate > 60; Glucose 214 mg/dL (65-110); Potassium 4.3 mmol/L (3.4-5.0); Sodium 135 mmol/L (137-145)
[2023-10-21 11:45] LABS: Glucose Point of Care 190 mg/dl (65-105)
--- NOTE | 2023-10-21 13:08 | PM.DS ---
DS: Admitting Diagnosis Discharge Date 10/21/2023 Admitting Diagnosis Ileus vs. partial SBO DS: Discharge Diagnosis Discharge Diagnosis (1) Partial obstruction of small intestine: Code(s): K56.600 - Partial intestinal obstruction, unspecified as to cause Status: Acute (2) Fibromyalgia: Code(s): M79.7 - Fibromyalgia Status: Acute Plan Partial SBO CT with dilated small bowel with feces at transition point Surgery consulted for any further recommendations tolerating diet, advance as tolerated Pain control HX of colectomy and diverticulosis Normal WBC afebrile Encourage activity Diabetes Accu-Cheks a.c. HS sliding scale insulin On semiglutide at home holding Diabetic diet consult to dietitian encourage lifestyle modifications and weight loss Watch for hypoglycemia/hypoglycemic protocol ordered PTSD ADAT IV ativan PRN will resume home medications for anxiety once tolerating oral intake Fibromyalgia Resume Lyrica Code status: Full code per patient DVT prophylaxis: Lovenox Stress ulcer prophylaxis: Pepcid IV PT/OT notes: Ambulates Disposition: Patient discharged to home with has home health set up with the [facility] DS: Summary Hospital Course Reason for hospitalization: Ileus versus partial small-bowel obstruction Hospital Course: Chief Complaint: ABD pain Narrative: Patient is a 53 year old pleasant male who presented to the ED with compliant of worsening ABD pain and constipation.? Patient does have some traumatic memory issues and is bedside assisting with H&P most information regarding history is from .? Patient has past medical history of pseudoseizures, fibromyalgia, COPD, PTSD, chronic hypoxia, diabetes, diverticulitis with previous colectomy and BPH.? Patient reported that he started having diarrhea a week ago with worsening ABD pain and eventually stopped having BM's.? Patient denied CP, SOB, Vomiting, Dizziness, fever or chills.? Patient did state he has been nauseous but has not vomited.? Patient labs on admission were unremarkable, vitals stable however ST ABD did show possible partial small bowel obstruction.? Patient was admitted to the medical unit for further evaluation and treatment with a consult to surgery, currently NPO will advance per surgery, pain management, IV fluids and monitor for BM/flatulence.? Patient reporting continued but slightly improving GI discomfort this morning, now how localized on the right side. Gen surgery following, continue to ADAT and serial exams but does not look like we are heading towards surgical intervention. Patient passing flatus this morning, but increased his abdominal pain. Will continue supportive measures. 10/20: Discharged Patient seen sitting on side of the bed tolerating advanced diet reports has gas into bowel movements. Patient did report he has some mild tenderness but pain controlled. Educated patient on the need to continue with aggressive oral hydration and encourage increase in activity. The patient to advance diet as tolerated was discharged home with labs and vital stable. at bedside and patient agreed with discharge plan. Status at Discharge Functional status at discharge: independent ambulation Time Spent with Patient Time attestation: Total time spent providing and/or coordinating discharge services: Time spent: Less than 30 minutes Exam Narrative: Physical Exam: GENERAL: Alert and oriented x 3. No acute distress. Well-nourished. EYES: EOMI. No scleral icterus. PERRLA. HEENT: Moist mucous membranes. No cervical lymphadenopathy. LUNGS: Clear to auscultation bilaterally. No accessory muscle use. CARDIOVASCULAR: Regular rate and rhythm. No murmur. No JVD. S1-S2 ABDOMEN: Soft, mild tenderness and non-distended. No palpable masses. EXTREMITIES: No edema. Non-tender SKIN: No rashes or lesions. Skin warm, dry. NEUROLOGIC:
== END 2023-10-21 14:05 | disposition home or self-care (01) ==
LOC: ANHED 22:54 → ANH3MEDSUR 10-19 00:44
PROVIDERS: Nurse Practitioner Family; Admitting Provider Internal Medicine; Emergency Provider Emergency Medicine; Visit Provider General Practice
DX: K56.600 Partial intestinal obstruction, unspecified as to cause (principal); K52.9 Noninfective gastroenteritis and colitis, unspecified; M79.7 Fibromyalgia; I10 Essential (primary) hypertension; E11.9 Type 2 diabetes mellitus without complications; J44.9 Chronic obstructive pulmonary disease, unspecified; K21.9 Gastro-esophageal reflux disease without esophagitis; F41.9 Anxiety disorder, unspecified; F32.A Depression, unspecified; G47.30 Sleep apnea, unspecified; F43.10 Post-traumatic stress disorder, unspecified; Z79.4 Long term (current) use of insulin; Z79.84 Long term (current) use of oral hypoglycemic drugs; Z79.82 Long term (current) use of aspirin; Z90.49 Acquired absence of other specified parts of digestive tract; F17.220 Nicotine dependence, chewing tobacco, uncomplicated; Z79.51 Long term (current) use of inhaled steroids; Z79.891 Long term (current) use of opiate analgesic; Z79.85 Long-term (current) use of injectable non-insulin antidiabetic drugs
CPT/HCPCS: 36415; 74176; 80053; 82948; 83690; 85025; 85027; 85055; 96361; 96374; 96375; 96376; 99285; A9270; G0378; J1170; J1885; J2060; J2405; J7030

== ENCOUNTER 2024-01-30 20:52 | Emergency (ER) | payer OTHER, SELFPAY ==
--- NOTE | ~2024-01-30 | CT_ITS ---
EXAMINATION: CT abdomen pelvis wo con DATE: 01/30/2024 21:34 INDICATION: abdominal pain and distention TECHNIQUE: Computed tomography (CT) of the abdomen and pelvis was performed without intravenous contr ast. Automated exposure control and iterative reconstruction technique were employed. The dose-length product was 1659.85 mGy-cm. COMPARISON: 10/18/2023. FINDINGS: Lower thorax: Unremarkable Liver: Normal. Biliary/Gallbladder: Gallbladder is partially contracted. No bile duct dilation. Pancreas: No mass or duct dilation. Spleen: Normal. Adrenals:No mass. Kidneys: No suspicious mass, obstructing stone, or hydronephrosis. GI tract: Uncomplicated rectosigmoid anastomosis. No small or large bowel dilation. Normal appendix. Mesentery/Peritoneum: No ascites, mass, or free air. Retroperitoneum: No mass. Pelvis: Pelvic organs are within normal limits. Soft Tissues: Lower anterior midline abdominal soft tissue calcifications likely from prior hernia re pair or surgical incision. Bones: No acute osseous finding. IMPRESSION: No acute abdominopelvic process detected. Reviewed, dictated and finalized at location K.
[2024-01-30 20:58] VITALS: BP 149/72; PULSE 64; RESP 24; O2SAT 98
--- NOTE | 2024-01-30 21:13 | ED.ABDPAIN ---
HPI - Abdominal Pain General Chief Complaint: Abdominal Pain Stated Complaint: abd pain, hx obstruction Time Seen by Provider: 01/30/24 20:56 History of Present Illness HPI narrative: Patient is a 53 year old male with history of DM, fibromyalgia, diverticulitis with prior colectomy in the early 1999s, bowel obstructions here with abdominal pain and distention since yesterday. patient notes that his symptoms began yesterday, he did try dose of MiraLax yesterday without relief of symptoms. His last bowel movement was 2 days ago which was small. He has struggled with constipation in the past and takes a stool softener every night. He notes that he has had decreased flatulence up until now and he has begun to pass gas since he has arrived to the ER. He notes pain feels similar to prior bowel obstruction for which he was hospitalized earlier this year. No fever, chills, sick contacts, vomiting. No urinary symptoms. Related Data Home Medications Medication Instructions Recorded Confirmed insulin glulisine U-100 100 76 unit subcut HS 07/02/19 10/19/23 unit/mL subcutaneous pen lactulose 10 gram/15 mL oral 20 g PO DAILY 07/02/19 10/19/23 solution metformin 500 mg 24 hr 2,000 mg PO HS 07/02/19 10/19/23 tablet,extended release (gastric retention) prazosin 2 mg capsule 4 mg PO HS 07/02/19 10/19/23 sildenafil 100 mg tablet 50 mg PO WEEKLY PRN Erectile 07/02/19 10/19/23 Dysfunction trazodone 100 mg tablet 200 mg PO HS 07/02/19 10/19/23 cetirizine 10 mg capsule (Zyrtec) 10 mg PO DAILY PRN Itching 10/19/23 10/19/23 cholecalciferol (vitamin D3) 50 100 mcg PO DAILY 10/19/23 10/19/23 mcg (2,000 unit) capsule cyclobenzaprine 10 mg tablet 10 mg PO TID PRN Muscle Spasticity 10/19/23 10/19/23 diclofenac sodium 1 % topical gel 4 g topical QID PRN Pain 10/19/23 10/19/23 empagliflozin 25 mg tablet 25 mg PO DAILY 10/19/23 10/19/23 ezetimibe 10 mg tablet 10 mg PO DAILY 10/19/23 10/19/23 fluticasone 250 mcg-salmeterol 50 1 inh inhalation Q12H 10/19/23 10/19/23 mcg/dose blistr powdr for inhalation naltrexone 4.5 mg capsule 4.5 mg PO QHS 10/19/23 10/19/23 nystatin 100,000 unit/gram topical 1 applic topical TID PRN Rash 10/19/23 10/19/23 cream omega-3 fatty acids-vitamin E 2 cap PO BID 10/19/23 10/19/23 1,000 mg capsule pantoprazole 40 mg tablet,delayed 40 mg PO DAILY 10/19/23 10/19/23 release (Protonix) polyethylene glycol 3350 17 gram 17 g PO DAILY 10/19/23 10/19/23 oral powder packet (Miralax) pregabalin 100 mg capsule (Lyrica) 100 mg PO HS 10/19/23 10/19/23 pregabalin 200 mg capsule (Lyrica) 200 mg PO BID 10/19/23 10/19/23 semaglutide 1 mg/dose (2 mg/1.5 1 mg subcut WEEKLY 10/19/23 10/19/23 mL) subcutaneous pen injector tamsulosin 0.4 mg capsule (Flomax) 0.4 mg PO DAILY 10/19/23 10/19/23 Allergies Allergy/AdvReac Type Severity Reaction Status Date / Time Iodine and Iodide Containing Allergy Severe HIVES, Verified 09/11/23 18:38 Produc SWELLING shellfish derived Allergy Severe Hives,SWELL Verified 09/11/23 18:38 ING Review of Systems Review of Systems: All systems reviewed & are unremarkable except as noted in HPI and below PMFSH Past Medical History Medical History Angina at rest Anxiety Arthritis Back pain Depression Diverticulitis GERD (gastroesophageal reflux disease) Hypertension Kidney stones Liver disease PTSD (post-traumatic stress disorder) Seizures Sleep apnea Type 2 diabetes mellitus Surgical History Surgical History H/O inguinal hernia repair History of partial colectomy Family History Family History Mother History of blood clots Diabetes mellitus Sibling Cerebrovascular accident Father Hypertension Prostate carcinoma Social History Social History (Reviewed 10/19/23 @ 10:40 by Kayla Vasques, FN
[2024-01-30 21:37] LABS: Basophils Percent Auto 0.6 % (0.2-1.2); Eosinophils Absolute Auto 0.1 K/mm3 (0-0.3); Eosinophils Percent Auto 1.5 % (0-4.4); Hematocrit 44.4 % (42.0-52.0); Hemoglobin 15.8 g/dL (14.0-18.0); Immature Granulocyte Absolute 0.04 K/mm3 (0.00-0.031); Immature Granulocyte Percent A 0.6 % (0-0.5); Lymphocytes Absolute Auto 1.81 K/mm3 (0.9-3.2); Lymphocytes Percent Auto 27.8 % (18.3-44.2); Mean Corpuscular HGB Conc 35.6 g/dl (32-36); Mean Corpuscular Hemoglobin 31.9 pg (26-34); Mean Corpuscular Volume 89.5 fl (80-100); Mean Platelet Volume 9.9 fl (7.4-10.4); Monocytes Absolute Auto 0.4 K/mm3 (0.1-0.6); Neutrophils Absolute Auto 4.1 K/mm3 (1.3-6.7); Neutrophils Percent Auto 63.5 % (45.5-73.1); Platelet Count Result 177 k/mm3 (150-375); Red Blood Count 4.96 M/mm3 (4.6-6.20); Red Cell Distribution Width 12.8 % (11.5-14.5); White Blood Count 6.5 K/mm3 (4.5-10.0)
[2024-01-30] MEDS: ONDANSETRON INJ 4 MG/2 ML VIAL IV PUSH (21:44)
[2024-01-30] MEDS: KETOROLAC 15 MG/ML VIAL (*BKC) IV PUSH (21:49)
[2024-01-30 21:52] LABS: Alanine Aminotransferase 43 U/L (6-50); Albumin Level 4.4 g/dL (3.5-5.1); Alkaline Phosphatase 118 U/L (38-126); Anion Gap 7 mmol/L (4-12); Aspartate Amino Transferase 37 U/L (17-59); Bilirubin,Total 0.6 mg/dL (0.2-1.3); Blood Urea Nitrogen 11 mg/dL (9-20); Calcium 8.9 mg/dL (8.4-10.2); Carbon Dioxide 26 mmol/L (22-30); Chloride 107 mmol/L (98-107); Estimated CRCL calculation 123 ml/min; Estimated Glomerular Filt Rate > 60; Glucose 143 mg/dL (65-110); Lipase 93 U/L (23-300); Potassium 4.4 mmol/L (3.4-5.0); Sodium 140 mmol/L (137-145)
[2024-01-30 22:02] LABS: Lactic Acid Reflex 1.4 mmol/L (0.7-2.0)
[2024-01-30] MEDS: LORazepam INJ (*CRX) 2 MG/ML VIAL 1 MG IV PUSH (23:04)
[2024-01-31 00:04] VITALS: BP 151/68; PULSE 60; RESP 17; O2SAT 95
== END 2024-01-31 00:06 | disposition home or self-care (01) ==
PROVIDERS: Physician Assistant; Emergency Provider Student in an Organized Health Care Education/Training Program
DX: R10.84 Generalized abdominal pain (principal); K59.00 Constipation, unspecified; I10 Essential (primary) hypertension; K21.9 Gastro-esophageal reflux disease without esophagitis; E11.9 Type 2 diabetes mellitus without complications; M19.90 Unspecified osteoarthritis, unspecified site; M79.7 Fibromyalgia; G47.30 Sleep apnea, unspecified; F32.A Depression, unspecified; F43.10 Post-traumatic stress disorder, unspecified; F41.9 Anxiety disorder, unspecified; Z87.442 Personal history of urinary calculi; Z87.891 Personal history of nicotine dependence; Z90.49 Acquired absence of other specified parts of digestive tract; Z79.4 Long term (current) use of insulin; Z79.84 Long term (current) use of oral hypoglycemic drugs; Z79.85 Long-term (current) use of injectable non-insulin antidiabetic drugs; Z79.899 Other long term (current) drug therapy
CPT/HCPCS: 36415; 74176; 80053; 83605; 83690; 85025; 96374; 96375; 99284; J1885; J2060; J2405

== ENCOUNTER 2024-11-29 19:49 | Emergency (ER) | payer OTHER, SELFPAY ==
--- NOTE | ~2024-11-29 | CT_ITS ---
CT abdomen pelvis wo con Ordering provider: Shanelle Cho History: 54 years Male with . diffuse abd pain, constipation, hx bowel obstruct . Comparison: January 30, 2024 Technique: CT abdomen and pelvis without IV and without oral contrast. Automated exposure control and iterative reconstruction technique were employed. The dose-length product was 1677.47 mGy-cm. Findings: VISUALIZED LOWER CHEST: Dependent atelectatic changes. Slight cardiomegaly. UPPER ABDOMINAL ORGANS: Liver: Normal. Gallbladder: Normal. Spleen: Normal. Stomach/duodenum: Normal. Pancreas: Normal. Adrenals: Normal. Kidneys: Normal. PELVIC ORGANS: The bladder is normal. Penile prosthesis is noted. BOWEL AND MESENTERY: Colon: Postoperative changes in the rectosigmoid area. Fecal material is loaded in the colon. Slight thickening of the wall of the rectum is seen. Clinical evaluation advised. Normal appendix. Small Bowel: Normal. No obstruction. Peritoneum/mesentery: No free air or free fluid. No mesenteric lymphadenopathy. RETROPERITONEUM: Mild atheromatous disease of the abdominal aorta. No retroperitoneal lymphadenopat hy. MUSCULOSKELETAL: Superficial soft tissues: Left fat-containing inguinal hernia. Anterior wall postoperative changes. T he superficial soft tissues are normal. Bones: Age appropriate degenerative changes of the spine. IMPRESSION: 1. No evidence of appendicitis, diverticulitis or intestinal obstruction. 2. Constipation. Reviewed, dictated and finalized at location A.
[2024-11-29 19:52] VITALS: BP 169/75; PULSE 74; RESP 18; TEMP 36.8; O2SAT 93
[2024-11-29 20:52] LABS: Basophils Absolute Auto 0.1 K/mm3 (0.0-0.1); Basophils Percent Auto 0.8 % (0.2-1.2); Eosinophils Absolute Auto 0.2 K/mm3 (0-0.3); Eosinophils Percent Auto 1.9 % (0-4.4); Hematocrit 48.6 % (42.0-52.0); Hemoglobin 16.7 g/dL (14.0-18.0); Immature Granulocyte Absolute 0.03 K/mm3 (0.00-0.031); Immature Granulocyte Percent A 0.4 % (0-0.5); Lymphocytes Absolute Auto 1.85 K/mm3 (0.9-3.2); Lymphocytes Percent Auto 22.3 % (18.3-44.2); Mean Corpuscular HGB Conc 34.4 g/dl (32-36); Mean Corpuscular Volume 90.3 fl (80-100); Mean Platelet Volume 9.8 fl (7.4-10.4); Monocytes Absolute Auto 0.4 K/mm3 (0.1-0.6); Monocytes Percent Auto 5.1 % (2.6-8.5); Neutrophils Absolute Auto 5.8 K/mm3 (1.3-6.7); Neutrophils Percent Auto 69.5 % (45.5-73.1); Platelet Count Result 175 k/mm3 (150-375); Red Blood Count 5.38 M/mm3 (4.6-6.20); Red Cell Distribution Width 12.6 % (11.5-14.5); White Blood Count 8.3 K/mm3 (4.5-10.0)
--- NOTE | 2024-11-29 20:59 | ED.ABDPAIN ---
HPI - Abdominal Pain General Chief Complaint: Abdominal Pain Stated Complaint: Possible bowel obstruction Time Seen by Provider: 11/29/24 20:30 History of Present Illness HPI narrative: 54-year-old male with history of nonepileptic seizures, type 2 diabetes, fibromyalgia, PTSD, depression, diabetes presents to the emergency department for constipation for 3 days. Patient states he has not passed any flatulence and a couple days and began developing diffuse abdominal pain a day and half ago. He does endorse a history of a bowel obstruction about a year ago and states this feels similar. Reports a history of partial colectomy due to diverticulitis about 20 years ago, no other prior abdominal surgeries. States he did have an episode of vomiting today. Denies fever, dysuria or hematuria. States he has attempted taking MiraLax, Metamucil and stool softeners at home without improvement. Related Data Home Medications ?Medication ?Instructions ?Recorded ?Confirmed ?Last Taken ?Type insulin glulisine U-100 100 76 unit subcut HS 07/02/19 10/19/23 Unknown History unit/mL subcutaneous pen lactulose 10 gram/15 mL oral 20 g PO DAILY 07/02/19 10/19/23 Unknown History solution metformin 500 mg 24 hr 2,000 mg PO HS 07/02/19 10/19/23 Unknown History tablet,extended release (gastric retention) prazosin 2 mg capsule 4 mg PO HS 07/02/19 10/19/23 10/19/23 History sildenafil 100 mg tablet 50 mg PO WEEKLY PRN Erectile 07/02/19 10/19/23 Unknown History Dysfunction trazodone 100 mg tablet 200 mg PO HS 07/02/19 10/19/23 Unknown History cetirizine 10 mg capsule (Zyrtec) 10 mg PO DAILY PRN Itching 10/19/23 10/19/23 Unknown History cholecalciferol (vitamin D3) 50 100 mcg PO DAILY 10/19/23 10/19/23 Unknown History mcg (2,000 unit) capsule cyclobenzaprine 10 mg tablet 10 mg PO TID PRN Muscle Spasticity 10/19/23 10/19/23 Unknown History diclofenac sodium 1 % topical gel 4 g topical QID PRN Pain 10/19/23 10/19/23 Unknown History empagliflozin 25 mg tablet 25 mg PO DAILY 10/19/23 10/19/23 Unknown History ezetimibe 10 mg tablet 10 mg PO DAILY 10/19/23 10/19/23 Unknown History fluticasone 250 mcg-salmeterol 50 1 inh inhalation Q12H 10/19/23 10/19/23 Unknown History mcg/dose blistr powdr for inhalation naltrexone 4.5 mg capsule 4.5 mg PO QHS 10/19/23 10/19/23 10/17/23 History nystatin 100,000 unit/gram topical 1 applic topical TID PRN Rash 10/19/23 10/19/23 Unknown History cream omega-3 fatty acids-vitamin E 2 cap PO BID 10/19/23 10/19/23 Unknown History 1,000 mg capsule pantoprazole 40 mg tablet,delayed 40 mg PO DAILY 10/19/23 10/19/23 Unknown History release (Protonix) polyethylene glycol 3350 17 gram 17 g PO DAILY 10/19/23 10/19/23 Unknown History oral powder packet (Miralax) pregabalin 100 mg capsule (Lyrica) 100 mg PO HS 10/19/23 10/19/23 Unknown History pregabalin 200 mg capsule (Lyrica) 200 mg PO BID 10/19/23 10/19/23 Unknown History semaglutide 1 mg/dose (2 mg/1.5 1 mg subcut WEEKLY 10/19/23 10/19/23 Unknown History mL) subcutaneous pen injector tamsulosin 0.4 mg capsule (Flomax) 0.4 mg PO DAILY 10/19/23 10/19/23 Unknown History Allergies Allergy/AdvReac Type Severity Reaction Status Date / Time Iodine and Iodide Containing Allergy Severe HIVES, Verified 09/11/23 18:38 Produc SWELLING shellfish derived Allergy Severe Hives,SWELL Verified 09/11/23 18:38 ING Review of Systems Review of Systems: All systems reviewed & are unremarkable except as noted in HPI and below PMFSH Past Medical History Medical History PTSD (post-traumatic stress disorder) Depression Anxiety Liver disease Type 2 diabetes mellitus Back pain Arthritis Kidney stones GERD (gastroesophageal reflux disease) Diverticulitis Sleep apnea Hypertension Angina at rest Seizures Surgical History Surgical History H/O inguinal hernia repair History of partial colectomy Family History Family History Mother History of blood clots Diabetes mellitus Sibling Cerebrovascular accident Father Hypertension Prostate carcinoma Social History Social History Smoking status: Former smoker Tobacco type: cigarettes Smokeless tobacco user: chewing tobacco Alcohol intake: never Substance use: never Do You Feel Safe in your Home?: Yes Lack of Transportation: YES Lack of Food: Never True Current Housing: I Have Housing Concerned About Future Housing: No Difficulty Paying Gas/Electric Bills: No Difficulty Paying for Meds: No Currently Unemployed: No Education: High School Diploma/GED Difficulty w/ Childcare or Family Care: No Gender identity (if verbalized by the patient): Male Spiritual care concerns: No Exam Narrative: GENERAL: Well-appearing, well-nourished, and in no acute distress. HEAD: Normocephalic, atraumatic. EYES: EOMI. ENT: Nares clear, no rhinorrhea or epistaxis. Mucous membranes moist. NECK: Supple. CHEST: Clear to auscultation. No respiratory distress. HEART: Regular rate and rhythm. No murmur heard. Normal peripheral pulses. ABDOMEN: Quiet bowel sounds. Abdomen soft with diffuse tenderness. No rebound or rigidity. EXTREMITIES: Normal range of motion. No edema. SKIN: Warm, dry, no rash. NEURO: No focal deficits. Alert and oriented x3 Course Vital Signs Vital signs: Vital Signs Temperature 98.2 F 11/29/24 19:52 Pulse Rate 74 11/29/24 19:52 Respiratory Rate 18 11/29/24 19:52 Blood Pressure 169/75 H 11/29/24 19:52 Pulse Oximetry 93 11/29/24 19:52 Oxygen Delivery Room Air 11/29/24 19:52 Temperature 98.2 F 11/29/24 19:52 Pulse Rate 74 11/29/24 19:52 Respiratory Rate 18 11/29/24 19:52 Blood Pressure 169/75 H 11/29/24 19:52 Pulse Oximetry 96 11/29/24 21:20 Oxygen Delivery Nasal Cannula 11/29/24 21:20 Oxygen Flow Rate 2 11/29/24 21:20 MDM - Abdominal Pain MDM Narrative Medical decision making narrative: 54-year-old male presents to the emergency department for constipation for 3 days, obstipation and abdominal pain. See HPI for further history. Triage vitals with elevated blood pressure, is unremarkable. Patient is afebrile and nontoxic appearing. Exam significant for the above. CBC without leukocytosis or anemia. Chemistries are unremarkable. UA without UTI or infection. Lactic elevated at 3.3, fluids provided repeat lactic normal at 1.7. Lipase within normal limits. CT abdomen pelvis shows no evidence of appendicitis, diverticulitis or intestinal obstruction. There is findings concerning for constipation. Patient updated on results. He is given IV fluids, Zofran, morphine with improvement. On re-evaluation, the patient is resting comfortably in exam bed and reports improvement. He was placed on 2 L nasal cannula by nursing staff. He does use 2 L p.r.n. at baseline. Patient was weaned off of O2 and is satting 95% on room air in no respiratory distress. Lung sounds are clear. Plan to start him on a bowel regimen. He states he has MiraLax and stool softeners at home which I encouraged him to use. Will also provide Fleet enemas. Advised increase hydration, high-fiber diet and close follow-up with PCP. Strict ED return precautions discussed. He is agreeable with the plan verbalized understanding. Discharged in stable condition. Lab Data 11/29/24 20:45 11/29/24 20:45 Labs: Lab Results 11/29/24 11/29/24 11/29/24 Range/Units 20:45 23:03 23:28 WBC 8.3 (4.5-10.0) K/mm3 RBC 5.38 (4.6-6.20) M/mm3 Hgb 16.7 (14.0-18.0) g/dL Hct 48.6 (42.0-52.0) % MCV 90.3 (80-100) fl MCH 31.0 (26-34) pg MCHC 34.4 (32-36) g/dl RDW 12.6 (11.5-14.5) % Plt Count 175 (150-375) k/mm3 MPV 9.8 (7.4-10.4) fl Immature Gran % (Auto) 0.4 (0-0.5) % Neut % (Auto) 69.5 (45.5-73.1) % Lymph % (Auto) 22.3 (18.3-44.2) % Powell % (Auto) 5.1 (2.6-8.5) % Eos % (Auto) 1.9 (0-4.4) % Baso % (Auto) 0.8 (0.2-1.2) % Lymph # (Auto) 1.85 (0.9-3.2) K/mm3 Powell # (Auto) 0.4 (0.1-0.6) K/mm3 Eos # (Auto) 0.2 (0-0.3) K/mm3 Baso # (Auto) 0.1 (0.0-0.1) K/mm3 Abs Immat Gran (auto) 0.03 (0.00-0.031) K/mm3 Absolute Neuts (auto) 5.8 (1.3-6.7) K/mm3 Absolute Nucleated RBC 0.000 (0.0-0.012) K/mm3 Nucleated RBC % 0.0 (0.0-0.2) % Sodium 135 L (137-145) mmol/L Potassium 4.3 (3.4-5.0) mmol/L Chloride 96 L (98-107) mmol/L Carbon Dioxide 28 (22-30) mmol/L Anion Gap 11 (4-12) mmol/L BUN 12 (9-20) mg/dL Creatinine 0.65 L (0.7-1.3) mg/dL Estim Creat Clear Calc 149 ml/min Estimated GFR > 60 (59 - ) Glucose 205 H (65-110) mg/dL Lactic Acid 3.3 H 1.7 (0.7-2.0) mmol/L Calcium 9.9 (8.4-10.2) mg/dL Magnesium 1.8 (1.6-2.3) mg/dL Total Bilirubin 0.8 (0.2-1.3) mg/dL AST 42 (17-59) U/L ALT 45 (6-50) U/L Alkaline Phosphatase 138 H (38-126) U/L Total Protein 9.0 H (6.3-8.2) g/dL Albumin 4.8 (3.5-5.1) g/dL Lipase 62 (23-300) U/L Urine Color Yellow (Yellow) Urine Appearance Clear (Clear) Urine pH 6.5 (5.0-9.0) Ur Specific [place] 1.007 (1.001-1.035) Urine Protein Negative (Negative) mg/dL Urine Glucose (UA) Negative (Negative) mg/dL Urine Ketones Negative (Negative) mg/dL Ur Blood (Man) Negative (Negative) Urine Nitrate Negative (Negative) Urine Bilirubin Negative (Negative) Urine Urobilinogen 0.2 (<2.0) mg/dL Leukocyte Esterase Rfl Negative (Negative) SYL/UL Imaging Data Radiologist's impression: ITS Impressions Abdomen/Pelvis CT 11/29/24 23:17 IMPRESSION: 1. No evidence of appendicitis, diverticulitis or intestinal obstruction. 2. Constipation. Discharge Plan Discharge Clinical Impression: Constipation Qualifiers: Constipation type: unspecified constipation type Qualified Code(s): K59.00 - Constipation, unspecified Patient Disposition: Home Condition: Stable Instructions: Antibiotic Form, Constipation (DC) Additional Instructions: You were evaluated in the emergency department for constipation. Your workup shows constipation, there is no evidence of a bowel obstruction. Please continue using the stool softeners and MiraLax as discussed, drink plenty fluids and eat a high-fiber diet. Use the enemas that were prescribed as directed. Follow-up closely with her PCP. Return to the emergency department if you develop any new or worsening symptoms. Patient Language: Djiboutian Prescriptions: New Fleet Enema 19-7 gram/118 mL enema 118 ml RECTAL ONCE Qty: 133 0RF No Action insulin glulisine U-100 100 unit/mL Insulin Pen 76 unit SUBCUT HS sildenafil 100 mg Tablet 50 mg PO WEEKLY PRN (Reason: Erectile Dysfunction) trazodone 100 mg Tablet 200 mg PO HS prazosin 2 mg Capsule 4 mg PO HS lactulose 10 gram/15 mL Solution 20 g PO DAILY Rx Instructions: TOOK TODAY 12/17/20 metformin 500 mg Tablet,Er Zuleika.Retention 24 Hr 2,000 mg PO HS albuterol sulfate [Ventolin HFA] 90 mcg/actuation HFA aerosol inhaler 2 puff inhalation QID PRN (Reason: shortness of breath or wheezing) Qty: 8.5 0RF tamsulosin [Flomax] 0.4 mg Capsule 0.4 mg PO DAILY cyclobenzaprine 10 mg Tablet 10 mg PO TID PRN (Reason: Muscle Spasticity) fluticasone propion-salmeterol 250-50 mcg/dose Blister With Device 1 inh INHALATION Q12H polyethylene glycol 3350 [Miralax] 17 gram Powder In Packet 17 g PO DAILY pantoprazole [Protonix] 40 mg Tablet,Delayed Release (Dr/Ec) 40 mg PO DAILY nystatin 100,000 unit/gram Cream 1 applic TOPICAL TID PRN (Reason: Rash) Rx Instructions: use for fungal skin infection to affected area ezetimibe 10 mg Tablet 10 mg PO DAILY omega-3 fatty acids-vitamin E 1,000 mg Capsule 2 cap PO BID pregabalin [Lyrica] 100 mg Capsule 100 mg PO HS Rx Instructions: take with 200mg dose pregabalin [Lyrica] 200 mg Capsule 200 mg PO BID Rx Instructions: additional 100mg taken with night dose diclofenac sodium 1 % Gel 4 g TOPICAL QID PRN (Reason: Pain) Rx Instructions: apply for pain/inflammation to joints cholecalciferol (vitamin D3) 50 mcg (2,000 unit) Capsule 100 mcg PO DAILY Zyrtec 10 mg Capsule 10 mg PO DAILY PRN (Reason: Itching) empagliflozin 25 mg Tablet 25 mg PO DAILY semaglutide 1 mg/dose (2 mg/1.5 mL) Pen Injector 1 mg SUBCUT WEEKLY naltrexone 4.5 mg Capsule 4.5 mg PO QHS Follow-up/Referrals: [facility] [Primary Care Provider] -
[2024-11-29] MEDS: MORPHINE SULFATE (*CRX) 4 MG/ML INJ IV PUSH (21:02)
[2024-11-29] MEDS: SODIUM CHLORIDE 0.9% IV 1,000 ML 999 ML IV CONT ×2 (21:02→21:47)
[2024-11-29] MEDS: ONDANSETRON INJ 4 MG/2 ML VIAL IV PUSH (21:02)
[2024-11-29 21:13] LABS: Lactic Acid Reflex 3.3 mmol/L (0.7-2.0)
[2024-11-29 21:14] LABS: Alanine Aminotransferase 45 U/L (6-50); Albumin Level 4.8 g/dL (3.5-5.1); Alkaline Phosphatase 138 U/L (38-126); Anion Gap 11 mmol/L (4-12); Aspartate Amino Transferase 42 U/L (17-59); Bilirubin,Total 0.8 mg/dL (0.2-1.3); Blood Urea Nitrogen 12 mg/dL (9-20); Calcium 9.9 mg/dL (8.4-10.2); Carbon Dioxide 28 mmol/L (22-30); Chloride 96 mmol/L (98-107); Estimated CRCL calculation 149 ml/min; Estimated Glomerular Filt Rate > 60; Glucose 205 mg/dL (65-110); Lipase 62 U/L (23-300); Magnesium 1.8 mg/dL (1.6-2.3); Potassium 4.3 mmol/L (3.4-5.0); Sodium 135 mmol/L (137-145)
[2024-11-29 21:20] VITALS: O2SAT 96
[2024-11-29 22:49] LABS: Reflex Lactic Acid Yes or No Add Lactic
[2024-11-29 23:30] LABS: Add Urine Microscopic? NO; Appearance Urine Clear (Clear); Bilirubin Urine Negative (Negative); Blood Urine Negative (Negative); Color Urine Yellow (Yellow); Glucose Urine UA Negative (Negative); Ketones Urine Negative (Negative); Leukocyte Esterase Ur Negative LEU/UL (Negative); Nitrate Urine Negative (Negative); Protein Urine Negative (Negative); Specific Grav Ur 1.007 (1.001-1.035); Urobilinogen Urine 0.2 mg/dL (<2.0); pH Urine 6.5 (5.0-9.0)
[2024-11-29 23:43] LABS: Lactic Acid 1.7 mmol/L (0.7-2.0)
[2024-11-30 00:23] VITALS: BP 157/72; PULSE 67; RESP 18; O2SAT 95
--- OUTSIDE RECORDS SUMMARY | 2024-11-30 15:17 | XMS_ITS | Clinical Summary ---
Author Organization [facility] Address [address] [place] [address] Care Team Providers Care Motorcyles Final Inspector Name Role Phone Jc Perez MD Primary Care Provider [phone] Allergies Active Allergy Reactions Criticality Noted Date Comments Iodine Unknown 11/10/2021 Shellfish-Derived Products Unknown Medications HYDROcodone-christiano taminophen 5-325 MG tablet 02/24/2021 Act shilpi lactulose 10 GM/15ML solution 11/17/2020 Active albuterol sulfate HFA 108 (90 Base) MCG/ACT inhaler Inhale 2 puffs into the lungs every 6 (six) hours as needed for Wheezing. Active Cholecalciferol 50 MCG (1999) Tab Active diclofenac sodium 0.1 % ophthalmic solution 1 drop 4 (four) times daily. Active metFORMIN 500 MG tablet Take 500 mg by mouth 2 (two) times daily with meals. Active LORazepam 2 MG tablet Take 2 mg by mouth every 6 (six) hours as needed for Anxiety. Active traZODone 100 MG tablet Take 100 mg by mouth nightly at bedtime. Active fish oil 1000 MG Cap capsule Take 500 mg by mouth 2 (two) times daily. Active prazosin 1 MG capsule Take 2 mg by mouth nightly at bedtime. Active empagliflozin 25 MG tablet Take 25 mg by mouth daily. Active CPAP MACHINEIndicati ons:CHASITY (obstructive sleep apnea) Auto CPAP 4-20 cmH2O WITH SD CARD 1 Device 03/18/2022 Active CPAP SUPPLIESIndicat ions:CHASITY (obstructive sleep apnea) To use at night with the CPAP machine 1 Device 03/18/2022 Active Active Problems Problem Noted Date Diagnosed Date Pain of hand 10/03/2014 Tenosynovitis of hand 05/26/2014 Overview (11/10/2021): Tenosynovitis of hand Family History Medical History Relation Comments Diabetes Father Prostate Cancer Father Diabetes Mother Heart Disease Mother Relation Status Comments Father Alive Mother Alive Social History Tobacco Use Types Packs/Day Years Used Date Smoking Tobacco: Former Cigarettes 2 5 1 987 - 1991 Smokeless Tobacco: Current Chew Tobacco Cessation:Ready to Q uit: No; Counseling Given: Yes Alcohol Use Standard Drinks/Week Comments Yes 0 (1 standard drink = 0.6 oz pur e alcohol) rare Sex and Gender Information Value Date Recorded Sex Assigned at Not on file Legal Sex Male 7:35 PM CDT Gender Identity Not on file Sexual Orientation Not on file Last Filed Vital Signs Vital Sign Reading Time Taken Comments Blood Pressure 122/77 11/10/2021 7:36 AM CDT Pulse 81 11/10/2021 7:36 AM CDT Temperature 36.5 C (97.7 F) 11/10/2021 7:36 AM CDT Respiratory Rate 16 11/10/2021 7:36 AM CDT Oxygen Saturation 94% 11/10/2021 7:36 AM CDT Inhaled Oxygen Concentration - - Weight 122.9 kg (271 lb) 03/02/2022 3:23 PM CDT Height 182.9 cm (6') 03/02/2022 3:23 PM CDT Body Mass Index 36.75 03/02/2022 3:23 PM CDT Plan of Treatment Health Maintenance Due Date Last Done Comments Colorectal Cancer Screening Colonoscopy (10 Years) 1968 Annual Physical 1971 Hepatitis C 1986 DTaP, Tdap and Td Vaccines ( 1 - Tdap) 1987 Hepatitis B Vaccines (1 of 3 - 19+ 3-dose series) 1987 Pneumococcal Vaccine: 50+ Ye ars (1 of 1 - PCV) 2018 Zoster Vaccines (1 of 2) 2018 COVID-19 Vaccine (2023-2 5 season) 2024 Meningococcal B Vaccine Aged Out No l onger eligible based on patient's age to complete this topic Meningococcal Vaccine Aged Out No fito rocio eligible based on patient's age to complete this topic RSV Immunizations Under 20 Months Aged Out No longer eligible based on patient's age to complete this topic Insurance [facility] OFFICE [facility] [place] [address] [facility] Care Teams Motorcyles Final Inspector Relationship Specialty Start Date End Date Jc Perez MD [address] [place] [address] PCP - General CARDIOVASCULAR DISEASE 03/02/22
--- OUTSIDE RECORDS SUMMARY | 2024-11-30 15:17 | XMS_ITS | Referral Summary ---
Author Organization [facility] Address [address] [place] [address] Care Team Providers Care Spray Booth Operator Name Role Phone Bud Murillo NP Primary Care Provider [phone] Allergies Active Allergy Reactions Criticality Noted Date Comments Iodine Shellfish Containing Products Medications cetirizine (ZyrTEC) 10 mg tablet Take 1 tablet (10 mg total) by mouth daily Active cholecalciferol (VITAMIN D-3) 2000 unit tablet Take 2 tablets (4,000 Units total) by mouth daily Active cyanocobalamin (Vitamin B-12) 100 mcg tablet Take 1 tablet (100 mcg total) by mouth daily Active diclofenac sodium (VOLTAREN) 1 % gel Apply 4 g topically 4 (four) times a day as needed Active empagliflozin (JARDIANCE) 25 mg tablet Take 1 tablet (25 mg total) by mouth daily Active ezetimibe (ZETIA) 10 mg tablet Take 1 tablet (10 mg total) by mouth daily Active omega-3 fatty acids-fish oil 300-1,000 mg capsule Take 1 capsule (1 g total) by mouth 2 (two) times a day Active insulin glargine 100 unit/mL vial for injection Inject 76 Units under the skin nightly Active metFORMIN XR (GLUCOPHAGE XR) 500 mg 24 hr tablet Take 4 tablets (2,000 mg total) by mouth daily with breakfast Active mometasone 200 mcg/actuation HFA aerosol inhaler Inhale 2 puffs 2 (two) times a day Active pantoprazole DR (PROTONIX) 40 mg EC tablet Take 1 tablet (40 mg total) by mouth daily Active petrolatum, white-lanolin ointment Apply 2 Pump topically daily as needed (For dry skin) Active polyethylene glycol 3350,bulk, powder 1 Capful daily Activ e prazosin (MINIPRESS) 1 mg capsule Take 3 capsules (3 mg total) by mouth nightly Active pregabalin (LYRICA) 100 mg capsule Take 1 capsule (100 mg total) by mouth 2 (two) times a day Active semaglutide (WEGOVY) 1.7 mg/0.75 mL auto-injector Inject 0.75 mL (1.7 mg total) under the skin every 7 days Active traZODone (DESYREL) 100 mg tablet Take 2 tablets (200 mg total) by mouth nightly Active blood glucose diagnostic (Accu-Chek Guide test strips) strip 1 each by other route 2 (two) times a day Active lactulose solution 10 gram/15mL Take 30 mL (20 g total) by mouth 2 (two) times a day Active albuterol (PROAIR RESPICLICK) 90 mcg/actuation inhaler Inhale 2 puffs every 6 (six) hours as needed for wheezing Active baclofen (LIORESAL) 20 mg tablet Take 0.5 tablets (10 mg total) by mouth 3 (three) times a day as needed 3 Active Active Problems Problem Noted Date Diagnosed Date Seizures 12/21/2022 Pain of hand 10/03/2014 Tenosynovitis of hand 05/26/2014 Overview (11/03/2016): Tenosynovitis of hand Social History Tobacco Use Types Packs/Day Years Used Date Smoking Tobacco: Never Alcohol Use Standard Drinks/Week Comments Yes 0 (1 standard drink = 0.6 oz pur e alcohol) Personal Safety Answer Date Recorded Getting School Help Needed Not on file 01/07 Sex and Gender Information Value Date Recorded Sex Assigned at Not on file Legal Sex Male 3:26 AM 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 SPECIALIST Gender Identity Not on file Sexual Orientation Not on file Last Filed Vital Signs Vital Sign Reading Time Taken Comments Blood Pressure 130/68 12/23/2022 7:51 AM CDT Pulse 65 12/23/2022 7:51 AM CDT Temperature 36.4 C (97.5 F) 12/23/2022 7:51 AM CDT Respiratory Rate 18 12/23/2022 7:51 AM CDT Oxygen Saturation 98% 12/23/2022 7:51 AM CDT Inhaled Oxygen Concentration - - Weight 126 kg (277 lb 12.5 oz) 12/21/2022 9:35 A M CDT Height 182 cm (5' 11.65 ) 12/21/2022 9:35 AM CDT Body Mass Index 38.04 12/21/2022 9:35 AM CDT Plan of Treatment Not on file Insurance Member Subscriber Plan / Payer ( fective 1998-Present) Name:Jc Herring Relation to Subscriber:Self Name:Jc Herring Payer ID:[id number] Group ID:Not on file Type:OTHER [employer] Address: [address] [facility] [place] [facility] Advance Directives For more information, please contact: [phone] * Full Code (Latest Code Status on File) Date Activated Date Inactivated Comments 12/21/2022 9:12 AM 12/23/2022 7:10 PM Care Teams Spray Booth Operator Relationship Specialty Start Date End Date Bud Murillo NP PCP - General 05/26/14
--- OUTSIDE RECORDS SUMMARY | 2024-11-30 15:17 | XMS_ITS | Clinical Summary ---
Author Organization [facility] Address [address] [place] [address] Care Team Providers Care Independent Insurance Adjuster Name Role Phone Bud Murillo NP Primary Care Provider [phone] Allergies Active Allergy Reactions Criticality Noted Date [...] hand 05/26/2014 Overview (11/03/2016): Tenosynovitis of hand Surgical History Surgery Date Site/Laterality Comments COLECTOMY Colectomy DE UNLISTED PROCEDURE ABDOME N PERITONEUM & OMENTUM Hernia Repair - (Added by TRINY Conv) Medical History Medical History Date Comments Diabetes mellitus (HCC) Diabetes mellitus; Comments: JKD 05/26/2014 - Hypercholesterolemia High choles terol; Comments: JKD 05/26/2014 - Arthritis Arthritis; Comme nts: JKD 05/26/2014 - Personal history of other me ntal and behavioral disorders History of depression - (Add ed by TW Conv) Convulsions (HCC) Seizures - (Ad ded by TW Conv) Post-traumatic stress disorder P TSD (post-traumatic stress disorder) - (Added by TW Conv) Family History Medical History Relation Name Comments Diabetes Mother Diabetes mellit us; Relation Name Status Comments Mother Social History Tobacco Use Types Packs/Day Years Used Date Smoking Tobacco: Never Alcohol Use Standard Drinks/Week Comments Yes 0 (1 standard drink = 0.6 oz pur e alcohol) Personal Safety Answer Date Recorded Getting School Help Needed Not on file 01/07 Sex and Gender Information Value Date Recorded Sex Assigned at Not on file Legal Sex Male 3:26 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 SERVICES PROFESSIONAL Gender Identity Not on file Sexual Orientation Not on file Obstetrics History Last Filed Vital Signs Vital Sign Reading [...] 12/21/2022 9:35 AM CDT Plan of Treatment Health Maintenance Due Date Last Done Comments Colon Cancer Screening-Colonoscopy 1968 Depression Screening 1968 Hepatitis C Screening 1968 Prostate Cancer Screening-PSA 1968 DTaP/Tdap/Td Vaccine (1 - Tdap) 1979 Hepatitis B Screening 1986 Regular Well Visit/Exam 18-64 1986 Zoster Vaccine (1 of 2) 2018 Influenza Vaccine (#1) 2024 Pneumococcal vaccine <65 Aged Out No longer eligible based on patient's age to complete this topic Insurance [place] [facility] Member Subscriber Plan / Payer ( fective 1998-Present) Name:Jc Herring Relation to Subscriber:Self Name:Jc Herring Payer ID:[id number] Group ID:Not on file Type:OTHER [employer] Address: [address] [facility] Advance Directives For more information, please contact: [phone] * Full Code (Latest Code Status on File) Date Activated Date Inactivated Comments 12/21/2022 9:12 AM 12/23/2022 7:10 PM Care Teams Independent Insurance Adjuster Relationship Specialty Start Date End Date Bud Murillo NP PCP - General 05/26/14
--- OUTSIDE RECORDS SUMMARY | 2024-11-30 15:22 | XMS_ITS | Encounter Summary ---
Author Name [facility] [place] [facility] [place] Address [address] [place] [address] Care Team Providers Care Log Loader Helper Name Role Phone YONATHAN LINDSAY Primary Care Provider OMEGA Bethea Unavailable Unavailable Selected Encounter This section includes the information on record at [place] for the Encounter. Date/Time Encounter Type Encounter Description Reason Provider Source Aug 09, 2024 02:00 PM OFFICE O/P NEW MOD 45 MIN OPTOMETRY ICD-10-CM E11.9 Type 2 diabetes mellitus without complications [place] [facility] Encounter Template Text not used by [place] Assessments - Encounter Diagnoses This section includes the primary and secondary diagnoses documented for the Encounter. Date/Time Primary/Secondary Diagnosis Diagnosis Name Provider Source Aug 09, 2024 03:12 PM PRIMARY Type 2 diabetes mellitus without complications [facility] Aug 09, 2024 03:12 PM SECONDARY Combined forms of age-related cataract, [facility] Aug 09, 2024 03:12 PM SECONDARY [facility] Plan of Treatment: Future Appointments (+ 6 months) and Future Tests (+/- 45 days) The Plan of Treatment section includes future care activities for the patient from all [place] treatmentfacilities. This section includes future appointments and future orders which are active, pending or scheduled. Future Appointments This section includes appointments that were scheduled to occur 6 months from the date of the Encounter, up to a maximum of 20 appointments. The data comes from all [facility]. Appointment Date/Time Appointment Type Appointme nt Facility Name Aug 13, 2024 03:00 PM AMBULATORY - PSYCHIATRY [facility] Aug 27, 2024 09:30 AM AMBULATORY - REHAB MEDICIN E [facility] Sep 03, 2024 10:30 AM AMBULATORY - NONE [facility] Sep 11, 2024 11:00 AM AMBULATORY - REHAB MEDICIN E Kena VIVAS [facility] Sep 12, 2024 02:30 PM AMBULATORY - MEDICINE [facility] Sep 27, 2024 10:15 AM AMBULATORY - REHAB MEDICIN E [facility] Oct 10, 2024 02:00 PM AMBULATORY - PSYCHIATRY [facility] Oct 24, 2024 11:00 AM AMBULATORY - REHAB MEDICIN E [facility] Oct 25, 2024 10:30 AM AMBULATORY - MEDICINE [facility] Nov 01, 2024 01:00 PM AMBULATORY - SURGERY [facility] Nov 13, 2024 12:00 PM AMBULATORY - NONE . MARCELINA S [facility] Nov 13, 2024 02:00 PM AMBULATORY - MEDICINE [facility] November 29, 2024 11:15 AM AMBULATORY - REHAB MEDICIN E [facility] December 16, 2024 02:30 PM AMBULATORY - MEDICINE [facility] December 17, 2024 02:00 PM AMBULATORY - PSYCHIATRY [facility] Jan 13, 2025 11:15 AM AMBULATORY - MEDICINE [facility] Active, Pending, and Scheduled Orders This section includes a listing of several types of active, pending, and scheduled orders, including clinic medications orders, diagnostic test orders, procedure orders and consult orders; where the start date of the order is 45 days before the date of the Encounter or 45 days after the date of theEncounter. The data comes from all [facility]. Test Date/Time Test Type Test Details Facility Name Jul 18, 2024 12:00 AM Laboratory - Chemi stry Order HEPATIC FUNTION PANEL (STL) GREEN LI/HEP BLD/PLAS PLASMA SP [facility] Jul 18, 2024 12:00 AM Laboratory - Chemi stry Order HGA1C BLOOD SP [facility] Jul 18, 2024 12:00 AM Laboratory - Chemi stry Order AMMONIA (STL-MA) WHITE CAP EDTA PLASMA SP [facility] Jul 18, 2024 12:00 AM Laboratory - Chemi stry Order PROST. SPECIFIC AG.(PB-STL) GOLD/RED SST SERUM SP [facility] Jul 18, 2024 12:00 AM Laboratory - Chemi stry Order MICRAL/CREAT PROFILE (STL) URINE SP [facility] Social History: Smoking Status (Most current) and Tobacco Use (All prior to encounter date) This section includes the most current, and the historical, smoking and tobacco- related health factors from the [place] facility where the Encounter took place. Current Smoking Status This section includes the most current smoking, or tobacco-related health factor, from the [place] facility where the Encounter took place. Date/Time Current Smoking Status Comment Facil ity Jul 18, 2024 02:00 PM VA-TOBACCO NEVER U SED CIGARETTES [facility] Tobacco Use History This section includes a history of the smoking, or tobacco-related health factors, that were collected on or before the date of the Encounter. The data comes from the [place] facility where the Encounter took place. Date/Time Smoking Status/Tobacco Use Comment F acility Jul 18, 2024 02:00 PM VA-TOBACCO SCREEN FOLLOW-UP [facility] Jul 18, 2024 02:00 PM VA-TOBACCO USE ADVICE [facility] Jul 18, 2024 02:00 PM VA-TOBACCO USE FOREST ENGINEER NO [facility] Jul 18, 2024 02:00 PM VA-TOBACCO USE MED NO [facility] Jul 18, 2024 02:00 PM VA-TOBACCO USE BREE E DAYS OTHER TYPE [facility] Jul 18, 2024 02:00 PM VA-TOBACCO USE BREE E DAYS SMOKELESS [facility] Jul 04, 2023 01:09 PM VA-TOBACCO USE > 1 5 LESS THAN 30 YEARS [facility] Jul 04, 2023 01:09 PM VA-TOBACCO USE ADVICE [facility] Jul 04, 2023 01:09 PM VA-TOBACCO USE FOREST ENGINEER NO [facility] Jul 04, 2023 01:09 PM VA-TOBACCO USE MED NO [facility] Jul 04, 2023 01:09 PM VA-TOBACCO USE [place] 30 MIN OF WAKEUP [facility] Jul 04, 2023 01:09 PM VA-TOBACCO USER EVERY DAY [facility] Jul 28, 2022 01:00 PM VA-TOBACCO FORMER USER [facility] Jul 28, 2022 01:00 PM VA-TOBACCO QUIT 15 YRS OR MORE [facility] Jul 13, 2021 01:00 PM VA-TOBACCO DOESNT USE [place] 30 MIN WAKEUP [facility] Jul 13, 2021 01:00 PM VA-TOBACCO USE 30 YEARS OR MORE [facility] Jul 13, 2021 01:00 PM VA-TOBACCO USE ADVICE [facility] Jul 13, 2021 01:00 PM VA-TOBACCO USE FOREST ENGINEER NO [facility] Jul 13, 2021 01:00 PM VA-TOBACCO USE MED NO [facility] Jul 13, 2021 01:00 PM VA-TOBACCO USER SOME DAYS [facility] May 20, 2020 03:30 PM VA-TOBACCO DOESNT USE [place] 30 MIN WAKEUP [facility] May 20, 2020 03:30 PM VA-TOBACCO USE > 1 5 LESS THAN 30 YEARS [facility] May 20, 2020 03:30 PM VA-TOBACCO USE ADVICE [facility] May 20, 2020 03:30 PM VA-TOBACCO USE FOREST ENGINEER NO [facility] May 20, 2020 03:30 PM VA-TOBACCO USE MED NO [facility] May 20, 2020 03:30 PM VA-TOBACCO USER SOME DAYS [facility] Jun 26, 2018 11:30 AM VA-TOBACCO FORMER USER [facility] Jun 26, 2018 11:30 AM VA-TOBACCO QUIT 15 YRS OR MORE [facility] Mar 02, 2017 07:35 AM QUIT TOBACCO >7 YEARS AGO [facility] May 25, 2016 05:48 AM CURRENT TOBACCO USER [facility] May 25, 2016 05:48 AM TOBACCO MEDS OFFER ED BUT DECLINED [facility] Jun 23, 2015 02:29 PM QUIT TOBACCO >7 YEARS AGO [facility] Sep 12, 2014 06:15 AM CURRENT TOBACCO USER [facility] Sep 12, 2014 06:15 AM QUIT TOBACCO >7 YEARS AGO [facility] Sep 12, 2014 06:15 AM TOBACCO MEDS OFFER ED BUT DECLINED [facility] Jun 25, 2013 02:47 PM QUIT TOBACCO >7 YEARS AGO [facility] May 04, 2010 12:36 PM LIFETIME NON-USER OF TOBACCO [facility] Jul 30, 2009 11:12 AM CURRENT TOBACCO USER [facility] Mar 20, 2008 01:00 PM CURRENT TOBACCO USER [facility] Mar 20, 2008 01:[address] OP SMOKING CLINIC [facility] Mar 20, 2008 01:00 PM TOBACCO OFFERRED P T MEDS (PROVIDER) [facility] Mar 06, 2007 10:38 AM QUIT TOBACCO >7 YEARS AGO [facility] May 09, 2006 09:29 AM CURRENT TOBACCO USER [facility] Aug 27, 2004 10:41 AM CURRENT TOBACCO USER [facility] Aug 27, 2004 10:41 AM SMOKER <10 [facility] Advance Directives: All historical and current Section Date Range: From patient's date of to the date document was created. This section includes ALL of a patient's completed or amended [place] Advance and Rescinded Directives. The entries below indicate that a directive exists for the patient, but an actual copy is not included with this document. The data comes from all [place] facilities. Date Advance Directives Provider Source Oct 21, 2022 FRANKLIN KO [facility] Sep 23, 2004 ADVANCE DIRECTIVE CJ RUDOLPH [facility] May 24, 2004 ADVANCE DIRECTIVE MITCH ZEE IS [facility] May 24, 2000 ADVANCE DIRECTIVE WAQASEMEKAMICHELE Villasenor IS [facility] Nov 11, 1996 ADVANCE DIRECTIVE MAGGIE DRAKE [facility] December 08, 1995 ADVANCE DIRECTIVE KI SANTOYO [facility] Encounter Notes: All associated encounter notes This section contains the clinical notes associated to the Encounter. Date/Time Encounter Note(s) Provider Source Aug 09, 2024 03:14 PM OPTOMETRY CONSULT: LOCAL TITLE: OPTOMETRY CONSULT [facility] STANDARD TITLE: OPTOMETRY CONSULT DATE OF NOTE: AUG 09, 2024@15:14 ENTRY DATE: AUG 09, 2024@15:14:39 AUTHOR: TRACIE JIMENEZ EXP COSIGNER: [place] URGENCY: STATUS: COMPLETED OPTOMETRY CONSULT ST Has ADDENDA REASON FOR IMAGING: DECREASED VA OD>OS BASELINE OCT MAC (08/09/2024): OU: normal foveal contour, RPE/PIL intact, (-)SRF/IRF/CSME /es/ TRACIE JIMENEZ Optometry Resident Signed: 08/09/2024 15:15 /los/ Jerome Canada, CAREN Staff Physician, Optometry Cosigned: 08/09/2024 15:21 08/09/2024 ADDENDUM STATUS: COMPLETED I have reviewed the history, findings and agree with the assessment and plan as charted in CPRS on this new optometry patient. /los/ Jerome [place], OD Staff Physician, Optometry Signed: 08/09/2024 15:21 TRACIE JIMENEZ [facility] Aug 09, 2024 01:49 PM OPTOMETRY CONSULT: LOCAL TITLE: OPTOMETRY CONSULT ST STANDARD TITLE: OPTOMETRY CONSULT DATE OF NOTE: AUG 09, 2024@13:49 ENTRY DATE: AUG 09, 2024@13:49:43 AUTHOR: TRACIE JIMENEZ EXP COSIGNER: [place] URGENCY: STATUS: COMPLETED OPTOMETRY CONSULT ST Has ADDENDA TYE: NEW TO [facility] REASON FOR VISIT: CEE CC: 1. blurry vision OD>OS - here with daughter today - TYE x 06/21/2023 @ [facility] - unsure where glasses are (likely dropped in car) - (+)glare from headlights - feels that OD sometimes does not focus at all - (-)flashes/floaters/curta in over vision 2. DMT2 - dx x ~10yrs - LA1C: 6.8 (11/2023) - LFBS: 193 (in-office reading, uses monitor) - controlled with Ozempic/Metformin, followed by PCP Ocular meds: none Ocular ROS: (PER JLV) 1. DMT2 with mild NPDR OU 2. Cataracts OU 3. Presbyopia/Myopia (-) injuries/trauma/surgeries /injections/laser FOHx: (+) blindness: father had oc stroke 1 wk ago (-) glaucoma (-) AMD (-) RD Cardiovascular ROS: no change from problem & medication lists CPRS Problem list, medications and allergies reviewed: CPRS Serology for Diabetes GLUCOSE 234 H mg/dL 04/08/2024 15:28 HGA1C 6.8 H % 12/14/2023 11:57 Cardiovascular BP: 142/81 (08/02/2024 14:14) Pulse: 80 (08/02/2024 14:14) Neuro: Orientation: Normal Psych: Mood/Affect: Normal Depression/suicide ideation: NO * - VISUAL ACUITY - DVA WITHOUT correction OD: 20/30 PH NI OS: 20/50 PH 20/30 Pupils: PERRL OU (-)APD Confrontation: FTFC OU Extra-Ocular Muscles: Full OU Externals/adnexa: Unremarkable OU LMRx: 06/21/2023 ([facility]) OD: -0.50-0.86z701 OS: -0.50-0.13j101 ADD: +1.75 AR: 08/09/2024 OD: -0.25-0.25v219 OS: -0.25-0.17l057 Refraction: 08/09/2024 OD: -0.25-1.27f152 20/25+ PAP 20/50 OS: -0.50-0.90o799 20/20 PAP 20/30 OU: 20/20 Add: +2.00 - SLIT LAMP EXAMINATION - Lids/Lashes/Lacrimal: tr capped MG UL>LL (-) blepharitis OU Conjunctiva/Sclera: white/quiet OU Cornea: clear OU Ant Chamber: deep and quiet OU Iris: normal, (-)NVI OU Lens: 1+ NS OU, tr diffuse PSC c flecks OD>OS Intraocular Pressures (Goldmann): 1 gtt Altafluor Date OD OS Time Meds 08/09/2024 18 18 1413 none - RETINAL EVALUATION - DFE Dilated retinal exam: 1414 Instilled 1 gtt phenylephrine 2.5%, 1 gtt tropicamide 1% OU Pt understands the side effects associated with dilation Vitreous: mild syneresis (-)PVD OU Optic Nerve OD: 0.30 CDR Flat, pink, distinct (-)NVD OS: 0.30 CDR Flat, pink, distinct (-)NVD Vessels: 2/3 OU, (-)NVE OU Posterior Pole: OD: (-) hemes/exudates/CWS/NVE OS: (-) hemes/exudates/CWS/NVE Macula: OD: Flat, clear (-)CSME OS: Flat, clear (-)CSME Periphery: OD: Flat and attached OS: Flat and attached fleeted views 2/2 photophobia and shaking (worsened with increased lighting during DFE, daughter reports shaking happens often) - IMAGING - BASELINE OCT MAC (08/09/2024): OU: normal foveal contour, RPE/PIL intact, (-)SRF/IRF/CSME Assessment/Plan 08/09/2024 1. DMT2 without retinopathy OU - dx x ~10yrs - LA1C: 6.8 (11/2023) - LFBS: 193 (in-office reading, uses monitor) - controlled with Ozempic/Metformin, followed by PCP - (-) CSME/DME on clinical exam today, c/w OCT OU - Pt ed on importance of maintaining tight blood sugar control. Recommend A1C < 7% to minimize risks of retinopathy and visual changes. Pt verbalizes understanding. - RTC 12 mos for CEE/DFE. Monitor for visual changes. 2. Combined cataracts OD>OS - mildly visually significant OD>OS - BCVA cc 20/25+ OD, 20/20 OS - no CE indicated at this time. - Pt ed on use of UV protection when outdoors to slow progression of cataract development. Monitor for visual changes. 3. Presbyopia - subjective improvement in vision with updated rx - Order DVO/NVO specs c Xtra-Active transition. pt reported prev trying BF/PAL, unable to tolerate - Pt made aware of possible 1-2 wks adapatation period. Recommended building up wear time (+2hrs/day). Pt edu on all findings and given the opportunity to have questions answered RTC 12 mos for CEE or sooner PRN /es/ TRACIE JIMENEZ Optometry Resident Signed: 08/09/2024 15:14 /es/ Jerome Canada, OD Staff Physician, Optometry Cosigned: 08/09/2024 15:21 08/09/2024 ADDENDUM STATUS: COMPLETED I have reviewed the history, findings and agree with the assessment and plan as charted in CPRS on this new optometry patient. Assessment/Plan 08/09/2024 1. DMT2 without retinopathy OU - dx x ~10yrs - LA1C: 6.8 (11/2023) - LFBS: 193 (in-office reading, uses monitor) - controlled with Ozempic/Metformin, followed by PCP - (-) CSME/DME on clinical exam today, c/w OCT OU - Pt ed on importance of maintaining tight blood sugar control. Recommend A1C < 7% to minimize risks of retinopathy and visual changes. Pt verbalizes understanding. - RTC 12 mos for CEE/DFE. Monitor for visual changes. 2. Combined cataracts OD>OS - mild visual significance OD - BCVA cc 20/25+ OD, 20/20 OS - no CE indicated at this time. - Pt ed on use of UV protection when outdoors to slow progression of cataract development. Monitor for visual changes. 3. Presbyopia OU - subjective improvement in vision with updated rx - Order DVO/NVO specs c Xtra-Active transition. pt reported prev trying BF/PAL, unable to tolerate - Pt made aware of possible 1-2 wks adapatation period. Recommended building up wear time (+2hrs/day). Pt edu on all findings and given the opportunity to have questions answered RTC 12 mos for CEE or sooner PRN /los/ Jerome Canada OD Staff Physician, Optometry Signed: 08/09/2024 15:25 TRACIE JIMENEZ [facility]
--- OUTSIDE RECORDS SUMMARY | 2024-11-30 15:22 | XMS_ITS | Encounter Summary ---
Author Name [facility] Organization [facility] [place] Address [address] [place] [address] Care Team Providers Care Roller Picker Name Role Phone YONATHAN CORONEL Primary Care Provider OMEGA Bethea Unavailable Unavailable Selected Encounter This section includes the information on record at [place] for the Encounter. Date/Time Encounter Type Encounter Description Reason Provider Source Apr 29, 2024 01:00 PM HYPNOTHERAPY [facility] TREATMENT ICD-10-CM F44.5 Conversion disorder with seizures or convulsions HARLEY AVILA [facility] Encounter Template Text not used by [place] Assessments - Encounter Diagnoses This section includes the primary and secondary diagnoses documented for the Encounter. Date/Time Primary/Secondary Diagnosis Diagnosis Name Provider Source Apr 29, 2024 02:06 PM PRIMARY Conversion disorder with seizures or convulsions HARLEY AVILA [facility] Apr 29, 2024 02:06 PM SECONDARY Fibromyalgia HARLEY AVILA [facility] Plan of Treatment: Future Appointments (+ 6 months) and Future Tests (+/- 45 days) The Plan of Treatment section includes future care activities for the patient from all [place] treatmentfacilities. This section includes future appointments and future orders which are active, pending or scheduled. Future Appointments This section includes appointments that were scheduled to occur 6 months from the date of the Encounter, up to a maximum of 20 appointments. The data comes from all [place] treatment facilities. Appointment Date/Time Appointment Type Appointme nt Facility Name Apr 30, 2024 03:00 PM AMBULATORY - PSYCHIATRY [facility] May 03, 2024 10:30 AM AMBULATORY - SURGERY [facility] May 21, 2024 01:00 PM AMBULATORY - PSYCHIATRY [facility] May 31, 2024 10:30 AM AMBULATORY - SURGERY [facility] Jun 05, 2024 09:30 AM [facility] NONE [facility] Jun 14, 2024 11:00 AM AMBULATORY - SURGERY [facility] Jun 17, 2024 03:00 PM AMBULATORY - MEDICINE [facility] Jun 25, 2024 03:00 PM AMBULATORY - PSYCHIATRY [facility] Jul 01, 2024 10:30 AM AMBULATORY - NONE [facility] Jul 08, 2024 10:30 AM AMBULATORY - REHAB MEDICIN [facility] Jul 18, 2024 02:00 PM AMBULATORY - MEDICINE [facility] Jul 22, 2024 03:00 PM AMBULATORY - NONE [facility] Aug 02, 2024 01:30 PM AMBULATORY - SURGERY [facility] Aug 08, 2024 02:00 PM AMBULATORY - PSYCHIATRY [facility] Aug 09, 2024 02:00 PM AMBULATORY - SURGERY [facility] Aug 13, 2024 03:00 PM AMBULATORY - PSYCHIATRY [facility] Aug 27, 2024 09:30 AM AMBULATORY - REHAB MEDICIN E [facility] Sep 03, 2024 10:30 AM AMBULATORY - NONE [facility] [facility] Sep 11, 2024 11:00 AM AMBULATORY - REHAB MEDICIN E [facility] Sep 12, 2024 02:30 PM AMBULATORY - MEDICINE [facility] Lab Results: +/- 30 days of the encounter This section includes the Chemistry and Hematology Lab Results on record with [place] for the patient. Radiology Reports and Pathology Reports are provided separately, in subsequent sections. Lab Results This section contains the Chemistry/Hematology Results that were resulted 30 days before or 30 daysafter the date of the Encounter. Date/Time Source Result Type Result - Unit Interpretation Reference Range Specimen Type Comment Apr 20, 2024 11:39 AM [facility] GLUCOSE,BLOOD-poct (STL) BLOOD Specimen Type: BLOOD Comment: Test Performed by: [id number] Meter #: [id number] Ordering Provider: KIKI PINA Report Released Date/Time: Apr 20, 2024 12:07 PM Reporting Lab: [address] [address] Performing Lab: [address] [address] GLUCOSE,BLOOD-poct (STL) 266 mg/dL H -Apr 20, 2024 05:26 AM [facility] GLUCOSE,BLOOD-poct (STL) BLOOD Specimen Type: BLOOD Comment: Test Performed by: [id number] Meter #: [id number] Ordering Provider: KIKI PINA Report Released Date/Time: Apr 20, 2024 05:38 AM Reporting Lab: [place] [address] [facility] [address] Performing Lab: [address] [address] GLUCOSE,BLOOD-poct (STL) 157 mg/dL H -Apr 19, 2024 08:45 PM [facility] GLUCOSE,BLOOD-poct (STL) BLOOD Specimen Type: BLOOD Comment: Test Performed by: [id number] Meter #: [id number] Ordering Provider: KIKI PINA Report Released Date/Time: Apr 19, 2024 10:10 PM Reporting Lab: [place] [address] [facility] [address] Performing Lab: [address] [address] GLUCOSE,BLOOD-poct (STL) 232 mg/dL H -Apr 19, 2024 05:13 PM [facility] GLUCOSE,BLOOD-poct (STL) BLOOD Specimen Type: BLOOD Comment: Test Performed by: [id number] Meter #: [id number] Ordering Provider: KIKI PINA Report Released Date/Time: Apr 19, 2024 05:24 PM Reporting Lab: [address] [address] Performing Lab: [address] [address] GLUCOSE,BLOOD-poct (STL) 176 mg/dL H 72-99 Apr 19, 2024 03:32 PM [facility] GLUCOSE,BLOOD-poct (STL) BLOOD Specimen Type: BLOOD Comment: Test Performed by: [id number] Meter #: [id number] Ordering Provider: LAUREN MOREL Report Released Date/Time: Apr 19, 2024 03:43 PM Reporting Lab: [address] [address] Performing Lab: [address] [address] GLUCOSE,BLOOD-poct (STL) 155 mg/dL H 72-99 Apr 19, 2024 02:56 PM [facility] MRSA SURVL NARES DNA NARES Specimen Type: JORDANA ES Comment: Qualitative real-time PCR test for the rapid detection of methicillin-resistant Staphylococcus aureus (MRSA) DNA from nasal swabs. A negative result does not preclude infection with the agent(s) tested and should not be used as the sole basis for treatment or other patient management decisions. A positive test does not necessarily indicate the presence of viable organisms, following bacterial culture to recover the organism for further characterization and susceptibility testing. All results must be combined with clinical observations, patient history, and epidemiological information for final interpretation. Ordering Provider: KIKI PINA Report Released Date/Time: Apr 19, 2024 04:55 PM Reporting Lab: [address] [address] Performing Lab: [address] [address] MRSA SURVL NARES DNA Negative Negative Apr 19, 2024 10:33 AM [facility] GLUCOSE,BLOOD-poct (STL) BLOOD Specimen Type: BLOOD Comment: Test Performed by: [id number] Meter #: [id number] Ordering Provider: YONATHAN CORONEL Report Released Date/Time: Apr 19, 2024 10:50 AM Reporting Lab: [address] [address] Performing Lab: [address] [address] GLUCOSE,BLOOD-poct (STL) 226 mg/dL H 72-99 Apr 08, 2024 03:28 PM [facility] PT/INR NEW (STL-MA) PLASMA Specimen Type: PLAS MA Comment: ~For Test: BASIC METABOLIC PANEL ~pre-op Ordering Provider: NOAH SANCHEZ Report Released Date/Time: Apr 02, 2024 12:39 PM Reporting Lab: [address] [address] Performing Lab: [address] [address] PROTIME 12.5 s 9.4-12.5 INR VALUE 1.1 {INR} Apr 08, 2024 03:28 PM [facility] BASIC METABOLIC PANEL PLASMA Specimen Type: PL ASMA Comment: ~For Test: BASIC METABOLIC PANEL ~pre-op Ordering Provider: NOAH SANCHEZ Report Released Date/Time: Apr 02, 2024 12:39 PM Reporting Lab: [address] [address] Performing Lab: [address] [address] CREATININE 1.59 mg/dL H 0.7-1.3 UREA NITROGEN 13.7 mg/dL 9.0-25.0 GLUCOSE 234 mg/dL H 72-99 SODIUM 139 meq/L 136-145 POTASSIUM 4.3 meq/L 3.5-5 CHLORIDE 104 meq/L 98-107 CARBON DIOXIDE 22 meq/L 22-31 CALCIUM 9.6 mg/dL 8.4-10.4 EGFR (CKD-EPI 2020) 50.6 >60 Apr 08, 2024 03:28 PM [facility] CBC BLOOD Specimen Type: BLOOD Comment: ~For Test: BASIC METABOLIC PANEL ~pre-op Ordering Provider: NOAH SANCHEZ Report Released Date/Time: Apr 02, 2024 12:39 PM Reporting Lab: [facility] [address] [facility] [address] Performing Lab: [facility] [address] [facility] [address] WBC 7.3 10*3/uL 3.6-11.2 RBC 5.23 10*6/uL 4.10-5.70 HGB 16.6 g/dL 13.1-16.8 HCT 47.8 38.2-48.4 MCV 91.4 fL 80.0-100.0 MCH 31.7 pg 27.0-34.0 MCHC 34.7 g/dL 33.0-36.0 PLT 164 10*3/uL 150-400 MPV 9.8 fL 7.5-11.2 RDW 13.3 11.8-15.1 LYMPHOCYTES, AUTO % 24 MONOCYTES, AUTO % 6 NEUTROPHILS, AUTO % 67 EOSINOPHILS, AUTO % 2 BASOPHILS, AUTO % 0 LYMPHOCYTES, ABSOLUTE 1.78 10*3/uL 0.77- 4.50 MONOCYTES, ABSOLUTE 0.46 10*3/uL 0.19-0. 80 NEUTROPHILS, ABSOLUTE 4.91 10*3/uL 2.10- 8.00 EOSINOPHILS, ABSOLUTE 0.11 10*3/uL 0.00- 0.60 BASOPHILS, ABSOLUTE 0.03 10*3/uL 0.00-0. 20 Advance Directives: All historical and current Section Date Range: From patient's date of to the date document was created. This section includes ALL of a patient's completed or amended [place] Advance and Rescinded Directives. The entries below indicate that a directive exists for the patient, but an actual copy is not included with this document. The data comes from all [place] facilities. Date Advance Directives Provider Source Oct 21, 2022 FRANKLIN KO [facility] Sep 23, 2004 ADVANCE DIRECTIVE CJ RUDOLPH [facility] May 24, 2004 ADVANCE DIRECTIVE MITCH ZEE . TREVA IS [facility] May 24, 2000 ADVANCE DIRECTIVE BARZAK,MICHELE VELA [facility] Nov 11, 1996 ADVANCE DIRECTIVE MAGGIE DRAKE [facility] December 08, 1995 ADVANCE DIRECTIVE KI SANTOYO [facility] Radiology Reports: +/- 30 days of the encounter Radiology Reports For cases when an order for radiology services may have been completed prior to the date of the Encounter, the report list includes the Radiology Reports that were completed up to 30 days before dateof the Encounter. For cases when an order for radiology services may have been completed after the date of the Encounter, the report list also includes the Radiology Reports that were completed up to30 days after date of the Encounter. The data comes from all [facility] facilities. Date/Time Radiology Report Provider Source Apr 08, 2024 03:15 PM CHEST X-RAY, 2 VIE WS: BETTY HAAS [id number] -1970 M Exm Date: APR 08, 2024@15:15 Req Phys: NOAH SANCHEZ Loc: -PRE-OP EVAL NURSING AM (Req Img Loc: -MAIN RADIOLOGY SUITE Service: [facility] [address] [place] [address] (Case [id number] COMPLETE) CHEST X-RAY, 2 VIEWS (RAD Detailed) CPT:78595 Reason for Study: pre-op Clinical History: Report Status: Verified Date Reported: APR 08, 2024 Date Verified: APR 08, 2024 [employer] Operator E-Sig:/ES/Franklin Hartley MD. FACR. Report: History: pre-op. Comparison: Prior chest examination-03/24/2023. Technique: PA and lateral views. Findings: No pulmonary consolidation, pleural effusion, pneumothorax, cardiomegaly or pulmonary edema is seen. Impression: No acute cardiopulmonary disease is seen. Primary Interpreting Staff: Franklin Hartley MD. FACR, Neuroradiologist (Car[employer] Capt[employer] Power Plant Operator) /FRANKLIN KENDALL [facility] Pathology Reports: +/- 30 days of the encounter Pathology Reports For cases when an order for pathology services may have been completed prior to the date of the Encounter, the report list includes the Pathology Reports that were completed up to 30 days before dateof the Encounter. For cases when an order for pathology services may have been completed after the date of the Encounter, the report list also includes the Pathology Reports that were completed up to30 days after date of the Encounter. The data comes from all [place] treatment facilities. Date/Time Pathology Report Provider Source Apr 23, 2024 02:03 PM LR SURGICAL PATHOL OGY REPORT: LOCAL TITLE: LR SURGICAL PATHOLOGY REPORT STANDARD TITLE: PATHOLOGY PROCEDURE NOTE DATE OF NOTE: APR 23, 2024@14:03:17 ENTRY DATE: APR 23, 2024@14:03:17 AUTHOR: CHRISTY MALCOLM EXP COSIGNER: URGENCY: STATUS: COMPLETED $APHDR - - - - - - - - - - - - - - - - - - - - - - - - - - - - - - - - - - - - - - - - MEDICAL RECORD SURGICAL PATHOLOGY - - - - - - - - - - - - - - - - - - - - - - - - - - - - - - - - - - - - - - - - PATHOLOGY REPORT Accession No. [id number] - - - - - - - - - - - - - - - - - - - - - - - - - - - - - - - - - - - - - - - - $TEXT Submitted by: KIKI PINA Date obtained: Apr 19, 2024 16:12 - - - - - - - - - - - - - - - - - - - - - - - - - - - - - - - - - - - - - - - - Specimen (Received Apr 19, 2024 16:13): A. PENILE SKIN BIOPSY - - - - - - - - - - - - - - - - - - - - - - - - - - - - - - - - - - - - - - - - BRIEF CLINICAL HISTORY: - - - - - - - - - - - - - - - - - - - - - - - - - - - - - - - - - - - - - - - - PREOPERATIVE DIAGNOSIS: ERECTILE DYSFUNCTION - - - - - - - - - - - - - - - - - - - - - - - - - - - - - - - - - - - - - - - - OPERATIVE FINDINGS: - - - - - - - - - - - - - - - - - - - - - - - - - - - - - - - - - - - - - - - - POSTOPERATIVE DIAGNOSIS: Surgeon/physician: CHARLOTTE GENAO MD =-=-=-=-=-=-=-=-=-=-=-=-= -=-=-=-=-=-=-=-=-=-=-=-=- =-=-=-=-=-=-=-=-=-=-=-=-= -=-= - - - - - - - - - - - - - - - - - - - - - - - - - - - - - - - - - - - - - - - - PATHOLOGY REPORT Accession No. SP [id number] - - - - - - - - - - - - - - - - - - - - - - - - - - - - - - - - - - - - - - - - GROSS DESCRIPTION: (Melisa, 04-19-2024) The specimen is received in formalin, in a container labeled with the patient's name, full SSN and designated penile skin . It consists of peng pink red tissue fragments that measure 0.2 and 0.3 cm in greatest diameter. It is submitted entirely in cassette A1. MICROSCOPIC EXAM: (Melisa) Microscopic examination of the sections submitted from penile skin shows epidermis with acanthosis and parakeratosis. Focal mild mixed inflammatory infiltrate is noted within the parakeratotic layers. The dermis is not well represented in this material. Serial levels are examined. A PAS stain is applied and shows few fragments of hyphae and budding yeasts. A positive control for each histochemical stain has been reviewed and accepted. DIAGNOSIS: PENILE SKIN, BIOPSY: ACANTHOSIS AND PARAKERATOSIS FOCAL ACTIVE CHRONIC INFLAMMATION FUNGAL ELEMENTS PRESENT /es/ CHRISTY MALCOLM Pathologist Signed Apr 23, 2024@14:03 Performing Laboratory: Surgical Pathology Report Performed By: [facility] CLIA# [id number] [address] [facility] [address] [place] [address] $FTR - - - - - - - - - - - - - - - - - - - - - - - - - - - - - - - - - - - - - - - - (End of report) CHRISTY MALCOLM MD [facility] Date Apr 23, 2024 - - - - - - - - - - - - - - - - - - - - - - - - - - - - - - - - - - - - - - - - BETTY HAAS STANDARD FORM 515 ID:[id number] SEX:M :1970 AGE: 54 LOC:APFEE PCP: Yonathan Coronel NP /los/ CHRISTY MALCOLM Pathologist Signed: 04/23/2024 14:03 CHRISTY MALCOLM [facility] Apr 08, 2024 03:00 PM LR MICROBIOLOGY RE PORT: Accession [UID]: [id number] [[id number]] Received: Apr 08, 2024@15:27 Collection sample: URINE,CLEAN CATCH Collection date: Apr 08, 2024 15:00 Site/Specimen: URINE Provider: NOAH SANCHEZ Test(s) ordered: C&S URINE.................... . completed: Apr 09, 2024 22:40 * BACTERIOLOGY FINAL REPORT => Apr 09, 2024 22:47 TECH CODE: [id number] CULTURE RESULTS: STREP. AGALACTIAE, GRP. B - Quantity: >25,000 - <50,000 CFU/ML Comment: There will be no work up. Bacteriology Remark(s): -- RYAN 04/09/24 -- >25,000 - <50,000 CFU/ML S. AGAL - There will be no work up. <10,000 CFU/ML MIXED GRAM POSITIVE ORGANISM There will be no work up. =--=--=--=--=--=--=--=--= --=--=--=--=--=--=--=--=- -=--=--=--=--=--=--=--=-- =-- Performing Laboratory: Bacteriology Report Performed By: [facility], [facility] [address] [facility] CLIA# [id number] [address] [facility] [address] [place] [address] LUANA CINTRON [facility] Encounter Notes: All associated encounter notes This section contains the clinical notes associated to the Encounter. Date/Time Encounter Note(s) Provider Source Apr 29, 2024 01:07 PM [facility] NOTE: LOCAL TITLE: BIOFEEDBACK - WHOLE HEALTH COMPLEMENTARY APPROACH STANDARD TITLE: [facility] NOTE DATE OF NOTE: APR 29, 2024@13:07 ENTRY DATE: APR 29, 2024@13:07:40 AUTHOR: MITCH AVILAIGNER: URGENCY: STATUS: COMPLETED WHOLE HEALTH - PSYCHOLOGY SELF REGULATION APPOINTMENTS SESSION: 4 SESSION LENGTH: 60 minutes DIAGNOSIS: conversion disorder; fibrmyalgia; SESSION FORMAT: in-person CONSENT FOR BIOFEEDBACK & HYPNOTHERAPY & RELEVANCE TO MEDICAL TREATMENT: reaffirmed today; please see tx noted dated February 08, 2024 for more detailed review of consent process PRESENTING PROBLEM & REFFERAL INFORMATION: the is dx with conversion disorder, ptsd, fibromyalgia, and rule out for personality disorder; he was referred by chiropractor, Dr. Merritt, to learn skills for self-regulation that would help with sustained presence, symptom mgmt. his ultimate goal is to reduce the frequency, severity, and intensity of seizures and to reduce the intensity of pain sensations RELEVANT BETWEEN SESSION DETAILS: the had surgery to correct hypogonadism; he is in pain upon arrival today. HOME PRACTICE: continues with breath training when needed; unclear if there is a consistent daily practice; INTERVENTIONS UTILIZED: - self hypnosis practices utilized in session today - cognitive behavioral interventions DESCRIPTION OF INTERVENTIONS/SUMMARY OF SESSION CONTENT: - self hypnosis training - consent: Vet verbalizes consent - Technique:The Lever TEchnique - Induction: focused attention toward candle flame; direct suggestions to increase mental focus with each breath; direct suggestions targeting increased awareness to body with use of progressive muscle relaxation practice - Suggestions: Ech time you practice you will feel more relaxed and more alert - reorientation: fully achieved with redirection and bilateral eye movement technique 's response: the overefforts during the tensing and relaxing of his muscles, causing exacerbation of groin pain; he winces but does resume practice; he fell asleep upon completion vetern is asked about sleep; he notes he has not found a good oxygen pillow for his nose; we discuss titration of mask wearing with emphasis on building comfort during daytime hours, one hour at a time; just the mask, then mask with oxygen and only after sustained comfort x 3 hours in day, switch to wearing at bedtime. he is agreeable to try ASSESSMENT MEASURES USED THIS SESSION: - d/t active habits of dissociation, no bfb training was completed today TREATMENT INDICATIONS: continue with HRV and Heart Coherence Training RECOMMENDED AT HOME PRACTICE: - titration of cpap machine to support improved sleep habits and improved oxygenation of the brain RISK ASSESSMENT: no changes to previously identified risk level; the remains sustainable as an outpatient at this time and does not require a higher level of care. MEASURABLE TREATMENT GOALS FOR THIS EPISODE OF CARE: Using shared decision-making practices, the and I collaboratively agreed upon the following treatment goals, which will be achieved through acquisition of self-regulation skills 1: to develop self-directed stress management skills through biofeedback training 2. to increase present moment awareness through mindfulness training 3. to increase cardiorespiratory coherence through use of paced diaphragmatic breathing PROGRESS TOWARD GOALS: no clear progress; he is more disoriented and dissociated today, suspected contributions are recent surgery, untreated CHASITY, and use of opiate medication for pain mgmt. he did seem more receptive to self-hypnosis skills today and we agree to integrate this into our future sessions; we will also use our f/u visit to discuss discontinuation of care and/or reframing of the treatment goals d/t lack of overall progress and infrequency of appointments. COLLABORATIVE RECOMMENDATIONS/PLAN: The and I collaboratively discussed the outcomes related to this treatment session and the broader treatment goals for this episode of care. changes were made to the tx plan: o RTC orders placed for additional biofeedback session o Vet commits to at home practice as outlined above The expressed agreement with assigned tasks and additions to the return to clinic plan. The was satisfied with the outcome of today's session. Vet to maintain active engagement with primary and specialty care providers RESOURCES PROVIDED: o [facility] contact information o Crisis line contact information /los/ MITCH AVILA PSY.D. Psychologist Signed: 04/29/2024 14:06 MITCH AVILA [facility]
--- OUTSIDE RECORDS SUMMARY | 2024-11-30 15:22 | XMS_ITS | Encounter Summary ---
Author Name [facility] [place] Address [address] [place] [address] Care Team Providers Care Lead Pressman Name Role Phone YONATHAN LINDSAY Primary Care Provider OMEGA Bethea Unavailable Unavailable Selected Encounter This section includes the information on record at [place] for the Encounter. Date/Time Encounter Type Encounter Description Reason Pro vider Source Nov 08, 2024 08:49 AM Outpatient Encounter COMMUNITY CARE CONSULT IHE Encounter Template Text not used by [place] Plan of Treatment: Future Appointments (+ 6 months) and Future Tests (+/- 45 days) The Plan of Treatment section includes future care activities for the patient from all [place] treatmentfacilities. This section includes future appointments and future orders which are active, pending or scheduled. Future Appointments This section includes appointments that were scheduled to occur 6 months from the date of the Encounter, up to a maximum of 20 appointments. The data comes from all [place] treatment facilities. Appointment Date/Time Appointment Type Appointme nt Facility Name Nov 13, 2024 12:00 PM [facility] Nov 13, 2024 02:00 PM AMBULATORY - MEDICINE [facility] November 29, 2024 11:15 AM AMBULATORY - [facility] December 16, 2024 02:30 PM AMBULATORY - MEDICINE [facility] December 17, 2024 02:00 PM [facility] Jan 13, 2025 11:15 AM AMBULATORY - MEDICINE [facility] Feb 13, 2025 02:00 PM AMBULATORY - MEDICINE [facility] Mar 24, 2025 10:30 AM AMBULATORY - NONE [facility] Apr 11, 2025 11:00 AM AMBULATORY - MEDICINE [facility] Active, Pending, and Scheduled Orders This section includes a listing of several types of active, pending, and scheduled orders, including clinic medications orders, diagnostic test orders, procedure orders and consult orders; where the start date of the order is 45 days before the date of the Encounter or 45 days after the date of theEncounter. The data comes from all [place] treatment facilities. Test Date/Time Test Type Test Details Facility Name Oct 07, 2024 11:59 AM Consult Order [facility] D[facility] SPEC [facility] [place] [facility] Oct 07, 2024 11:59 AM Consult Order [facility] SPEC [facility] [place] [facility] Lab Results: +/- 30 days of the encounter This section includes the Chemistry and Hematology Lab Results on record with [place] for the patient. Radiology Reports and Pathology Reports are provided separately, in subsequent sections. Lab Results This section contains the Chemistry/Hematology Results that were resulted 30 days before or 30 daysafter the date of the Encounter. Date/Time Source Result Type Result - Unit Interpretation Reference Range Specimen Type Comment Nov 13, 2024 02:35 PM [facility] HGA1C BLOOD Specimen Type: BLOOD No comment entered. Ordering Provider: RAKEL TORRES Report Released Date/Time: Nov 13, 2024 02:28 PM Reporting Lab: [facility] [address] [address] Performing Lab: [facility] [address] [facility] [address] HGA1C 7.5 H 4.0-6.0 Nov 13, 2024 02:35 PM [facility] VITAMIN D, 25-HYDROXY SERUM Specimen Type: SE RUM No comment entered. Ordering Provider: LENNARTZ,RAKEL SALEEM Report Released Date/Time: Nov 13, 2024 02:33 PM Reporting Lab: [facility] [address] [address] Performing Lab: [address] [address] VITAMIN D, 25-HYDROXY 35.4 ng/mL 30-96 Oct 25, 2024 11:20 AM [facility] CONJ. BILIRUBIN PLASMA Specimen Type: PLASM A Comment: LDL calculation invalid when Triglyceride exceeds 250 mg/dl Ordering Provider: NIKA SANCHEZ Report Released Date/Time: Oct 25, 2024 10:53 AM Reporting Lab: [address] [address] Performing Lab: [address] [address] CONJ. BILIRUBIN 0.2 mg/dL 0-0.5 Oct 25, 2024 11:20 AM [facility] PT/INR NEW ([facility]-[place]) PLASMA Specimen Type: PLAS [place] No comment entered. Ordering Provider: NIKA SANCHEZ Report Released Date/Time: Oct 25, 2024 10:53 AM Reporting Lab: [address] [address] Performing Lab: [address] [address] PROTIME 12.5 s 9.4-12.5 INR VALUE 1.1 {INR} Oct 25, 2024 11:20 AM [facility] ALPHA-FETOPROTEIN(STL-PB) PLASMA Specimen Type : PLASMA No comment entered. Ordering Provider: NIKA SANCHEZ Report Released Date/Time: Oct 25, 2024 10:53 AM Reporting Lab: [address] [address] Performing Lab: [address] [address] ALPHA-FETOPROTEIN(STL-PB) <2.00 ng/mL L 1- 8.78 Oct 25, 2024 11:20 AM [facility] LIPID PANEL (STL) PLASMA Specimen Type: PLASM A Comment: LDL calculation invalid when Triglyceride exceeds 250 mg/dl Ordering Provider: NIKA SANCHEZ Report Released Date/Time: Oct 25, 2024 10:53 AM Reporting Lab: [facility] [address] [facility] [address] Performing Lab: [address] [address] CHOLESTEROL 158 mg/dL 0-200 TRIGLYCERIDE 401 mg/dL H 0-150 DIRECT LDL 73 mg/dL L >100 CALCULATED LDL comment mg/dL HDL(New) 38 mg/dL L >40 Oct 25, 2024 11:20 AM [facility] COMPREHENSIVE METABOLIC PANEL PLASMA Specimen Type: PLASMA Comment: LDL calculation invalid when Triglyceride exceeds 250 mg/dl Ordering Provider: NIKA SANCHEZ Report Released Date/Time: Oct 25, 2024 10:53 AM Reporting Lab: [address] [address] Performing Lab: [address] [address] CREATININE 0.70 mg/dL 0.7-1.3 UREA NITROGEN 13.9 mg/dL 9.0-25.0 GLUCOSE 352 mg/dL H 72-99 SODIUM 133 meq/L L 136-145 POTASSIUM 3.7 meq/L 3.5-5 CHLORIDE 102 meq/L 98-107 CARBON DIOXIDE 18 meq/L L 22-31 CALCIUM 8.7 mg/dL 8.4-10.4 PROTEIN 7.7 g/dL 6-8.6 ALBUMIN 4.0 g/dL 3.4-5 TOTAL BILIRUBIN 0.5 mg/dL 0.2-1.2 ALKALINE PHOSPHATASE 121 U/L 40-150 AST/SGOT 35 U/L H 5-34 ALT/SGPT 38 U/L 8-40 EGFR (CKD-EPI 2020) 108.1 >60 Oct 25, 2024 11:20 AM [facility] CBC BLOOD Specimen Type: BLOOD No comment entered. Ordering Provider: NIKA SANCHEZ Report Released Date/Time: Oct 25, 2024 10:53 AM Reporting Lab: [facility] [address] [facility] [address] Performing Lab: [facility] [address] [facility] [address] WBC 5.4 10*3/uL 3.6-11.2 RBC 5.06 10*6/uL 4.10-5.70 HGB 16.1 g/dL 13.1-16.8 HCT 45.6 38.2-48.4 MCV 90.1 fL 80.0-100.0 MCH 31.8 pg 27.0-34.0 MCHC 35.3 g/dL 33.0-36.0 PLT 161 10*3/uL 150-400 MPV 10.5 fL 7.5-11.2 RDW 12.5 11.8-15.1 LYMPHOCYTES, AUTO % 30 MONOCYTES, AUTO % 6 NEUTROPHILS, AUTO % 61 EOSINOPHILS, AUTO % 2 BASOPHILS, AUTO % 1 LYMPHOCYTES, ABSOLUTE 1.60 10*3/uL 0.77- 4.50 MONOCYTES, ABSOLUTE 0.31 10*3/uL 0.19-0. 80 NEUTROPHILS, ABSOLUTE 3.29 10*3/uL 2.10- 8.00 EOSINOPHILS, ABSOLUTE 0.10 10*3/uL 0.00- 0.60 BASOPHILS, ABSOLUTE 0.04 10*3/uL 0.00-0. 20 Social History: Smoking Status (Most current) and Tobacco Use (All prior to encounter date) This section includes the most current, and the historical, smoking and tobacco- related health factors from the [facility] where the Encounter took place. Current Smoking Status This section includes the most current smoking, or tobacco-related health factor, from the [place] facility where the Encounter took place. Date/Time Current Smoking Status Comment Facility May 26, 2000 01:36 PM CURRENT NON-TOBACC O USER-HX OF USE stop smoking 10yrs ago,started smoking at 14yrs,smoked 2packs a day [facility] Tobacco Use History This section includes a history of the smoking, or tobacco-related health factors, that were collected on or before the date of the Encounter. The data comes from the [facility] where the Encounter took place. Date/Time Smoking Status/Tobacco Use Comment F acility Mar 07, 2000 12:35 PM CURRENT NON-TOBACC O USER-HX OF USE [facility] Advance Directives: All historical and current Section Date Range: From patient's date of to the date document was created. This section includes ALL of a patient's completed or amended [place] Advance and Rescinded Directives. The entries below indicate that a directive exists for the patient, but an actual copy is not included with this document. The data comes from all [place] facilities. Date Advance Directives Provider Source Oct 21, 2022 FRANKLIN KO [facility] Sep 23, 2004 ADVANCE DIRECTIVE CJ RUDOLPH [facility] May 24, 2004 ADVANCE DIRECTIVE SAADIAMITCH Brenda [facility] May 24, 2000 ADVANCE DIRECTIVE JACOBOMICHELE R [facility] Nov 11, 1996 ADVANCE DIRECTIVE MAGGIE DRAKE [facility] December 08, 1995 ADVANCE DIRECTIVE KI SANTOYO [facility] Radiology Reports: +/- 30 days of the [...] the Encounter. The data comes from all [place] treatment facilities. Date/Time Radiology Report Provider Source Nov 13, 2024 12:14 PM US ABDOMEN COMPLET E W/BLOOD FLOW DOPPLER (STL): BETTY HAAS [id number] -[id number] Ex Date: NOV 13, 2024@12:14 Req Phys: NIKA SANCHEZ Loc: [place] (Req'g Lo Img Loc: [place] [place] Service: Unknown [address] [address] (Case [id number] COMPLETE) US ABDOMEN LTD, SINGLE ORG OR CHRISTIN(US Detailed) CPT:44219 Reason for Study: HCC surveillance (Case [id number] COMPLETE) US BLOOD FLOW ABD/RENAL DOPPLER ((US Detailed) CPT:99271 Clinical History: Report Status: Verified Date Reported: NOV 13, 2024 Date Verified: NOV 13, 2024 Target Aircraft Technician E-Sig:/ES/RAFAEL WILDER Report: Case [id number], [id number]. US ABDOMEN LTD, SINGLE ORG OR QUADRANT, US BLOOD FLOW ABD/RENAL DOPPLER (COMPLETE). Comparison: 01/15/2024 for ultrasound. History: Hepatocellular carcinoma screening. Findings: Liver: Visualization score: B Morphology/parenchyma: The liver echogenicity is diffusely increased, with posterior beam attenuation and coarsening liver echotexture. The liver surface is smooth. These findings are consistent with hepatic steatosis/chronic liver disease. The liver is enlarged, measuring 20.5 cm. Liver observations: None, within the limitations of the study. Bile ducts: No intrahepatic or extrahepatic biliary ductal dilation. The common hepatic duct measures 5.3 mm. Gallbladder: Within normal limits. Negative sonographic Gregory sign. Ascites: No ascites is present. Other findings: None significant. Doppler: The main portal vein is patent with appropriate hepatopetal blood flow. The main portal vein diameter is 1.2 cm. The visible hepatic veins are patent with appropriate flow direction. Impression: 1. Ultrasound Category: 1. Given the limitations of the study, recommend closer follow-up in 3 months. 2. Visualization score: B 3. Other findings: Hepatomegaly, with chronic hepatocellular disease/steatosis. US LI-RADS REFERENCE: US-1 negative: No evidence of HCC US-2 subthreshold: Observation(s) detected that may warrant short-interval US surveillance; observation <10 mm in diameter, not definitely benign. US-3 positive: Observation(s) detected that may warrant multiphase contrast-enhanced imaging; observation ? 10 mm in diameter or new thrombus in vein. Visualization Score: A: No or minimal limitations; limitations, if any, are unlikely to meaningfully affect sensitivity B: Moderate limitations; limitations my obscure small masses C: Severe limitations; limitations significantly lower sensitivity for focal liver lesions I, Rafael Wilder, have reviewed the images and report and concur with these findings. Primary Interpreting Staff: RAFAEL WILDER, Diagnostic Radiologist ([employer] Aircraft Technician) Primary Interpreting Resident: CHRISTINA MALAGON, Vascular & Interventional Outer Diameter Grinder Tool /[facility]EL [facility] Encounter Notes: All associated encounter notes This section contains the clinical notes associated to the Encounter. Date/Time Encounter Note(s) Provider Source Nov 08, 2024 11:38 AM ADDENDUM: LOCAL TITLE: Addendum STANDARD TITLE: ADDENDUM DATE OF NOTE: NOV 08, 2024@11:38:27 ENTRY DATE: NOV 08, 2024@11:38:27 AUTHOR: SHARITA MORGAN EXP COSIGNER: URGENCY: STATUS: COMPLETED [facility] DENTAL SERVICE/COMMUNITY CARE RFS DETERMINATION The requested treatment: DENIED. DENIED TREATMENT: [id number] Consultation Rationale for Decision (choose all that apply): (clinical justification for treatment denials) * Lack of clinical justification/indication * Other: There is in no need for a consultation. The notes indicate provider DHK asked for an evaluation of #32 for extraction. This is not a consultation. Also, this was already authorized (the extraction) with sedation and the SRPs on October 07, 2024 in Consult [id number]. ACTION STEPS (select all that apply) * RFS/ADA Dental Claim Form external records reviewed. REQUESTING PROVIDER: Franklin Mario Office:Franklin Mario [address] [place] [address] COMMUNITY CARE COORDINATION NOTES Please continue 's care for authorized treatment. /los/ SHARTIA MORGAN DMD STAFF DENTIST, GENERAL DENTIST Signed: 11/08/2024 11:38 Receipt Acknowledged By: 11/08/2024 14:36 /pamela GAGE COMMUNITY CARE RN --- Original Document --- 11/08/24 COMMUNITY CARE-REQUEST FOR SERVICE NOTE STL: Request for Services (RFS) documentation has been sent for scanning to [facility] Consult: COMMUNITY CARE-Gen Consult No: [id number] Date sent to scanning: Oct A Request for Service (RFS) form [id number] has been received which includes the following: Care Requested: [id number] Consultation ICD-10 Dx code: k03.6 Date [place] received request: Oct Date service required: Oct Requesting Community Provider Information: Name of Ordering Provider: Franklin Mario Office:Franklin Mario [address] [place] [address] /es/ GEORGE LARSEN ADVANCED MEDICAIL MANAGER [employer]AD[employer]IP DEVELOPMENT Signed: 11/08/2024 08:55 Receipt Acknowledged By: 11/08/2024 11:38 /es/ SHARITA MORGAN DMD STAFF DENTIST, GENERAL DENTIST 11/08/2024 09:09 /es/ LOAN GAGE COMMUNITY CARE [facility]ITA [facility] Nov 08, 2024 08:49 AM NONVA NOTE: LOCAL TITLE: COMMUNITY CARE-REQUEST FOR SERVICE NOTE STL STANDARD TITLE: NONVA NOTE DATE OF NOTE: NOV 08, 2024@08:49 ENTRY DATE: NOV 08, 2024@08:49:49 AUTHOR: GEORGE LARSEN EXP COSIGNER: URGENCY: STATUS: COMPLETED COMMUNITY CARE-REQUEST FOR SERVICE NOTE STL Has ADDENDA Request for Services (RFS) documentation has been sent for scanning to [facility] Consult: COMMUNITY CARE-Gen Consult No: [id number] Date sent to scanning: Oct A Request for Service (RFS) form [id number] has been received which includes the following: Care Requested: D9310 Consultation ICD-10 Dx code: k03.6 Date [place] received request: Oct Date service required: Oct Requesting Community Provider Information: Name of Ordering Provider: Franklin Mario Office:Franklin Mario [address] [place] [id number] /pamela LARSEN ADVANCED MEDICAIL MANAGER [employer]ELOPMENT Signed: 11/08/2024 08:55 Receipt Acknowledged By: 11/08/2024 11:38 /los/ SHARITA MORGAN DMD STAFF DENTIST, GENERAL DENTIST 11/08/2024 09:09 /los/ LOAN GAGE COMM[facility]ITY CARE RN 11/08/2024 ADDENDUM STATUS: COMPLETED ST[facility] DENTAL SERVICE/COMMUNITY CARE RFS DETERMINATION The requested treatment: DENIED. DENIED TREATMENT: D9310 Consultation Rationale for Decision (choose all that apply): (clinical justification for treatment denials) * Lack of clinical justification/indication * Other: There is in no need for a consultation. The notes indicate provider PRIETOK asked for an evaluation of #32 for extraction. This is not a consultation. Also, this was already authorized (the extraction) with sedation and the SRPs on October 07, 2024 in Consult [id number]. ACTION STEPS (select all that apply) * RFS/ADA Dental Claim Form external records reviewed. REQUESTING PROVIDER: Franklin Mario Office:Franklin Mario [address] [place] [address] COMMUNITY CARE COORDINATION NOTES Please continue 's care for authorized treatment. /los/ SHARITA MORGAN DMD STAFF DENTIST, GENERAL DENTIST Signed: 11/08/2024 11:38 Receipt Acknowledged By: * AWAITING SIGNATURE * LOAN GAGE NANCY [facility]
--- OUTSIDE RECORDS SUMMARY | 2024-11-30 15:23 | XMS_ITS ---
VA HOSPITALIZATION [facility] Encounter Summary Created on: November 30, 2024 BETTY HAAS : 1970 Sex: Male Author Name [facility] Organization [facility] Address [address] [place] [address] Care Team Providers Care Education Site Manager Name Role Phone YONATHAN CORONEL Primary Care Provider OMEGA Bethea Unavailable Unavailable Selected Encounter This section includes the information on record at [place] for the Encounter. Date/Time Encounter Type Encounter Description Reason Provider Source Apr 19, 2024 04:25 PM Inpatient Visit HOSPITALIZATION ICD-10-CM Z79.85 Lng trm (crnt) use injectable non-insulin antidiabetic drugs KIKI PINA Encounter Template Text not used by [place] Assessments - Encounter Diagnoses This section includes the primary and secondary diagnoses documented for the Encounter. Date/Time Primary/Secondary Diagnosis Diagnosis Name Provider Source Apr 20, 2024 03:22 PM Diagnosis for Length of Stay Male erectile dysfunction, unspecified [facility] Apr 20, 2024 03:22 PM SECONDARY Disorder of penis, unspecified [facility] Apr 20, 2024 03:22 PM SECONDARY Encounter for surgical aftcr following surgery on the sys [facility] Apr 20, 2024 03:22 PM SECONDARY Lng trm (crnt) use injectable non-insulin antidiabetic drugs [facility] Apr 20, 2024 03:22 PM SECONDARY retirement (current) use of oral hypoglycemic drugs [facility] Apr 20, 2024 03:22 PM SECONDARY Presence of urogenital implants [facility] Apr 20, 2024 03:22 PM SECONDARY Type 2 diabetes mellitus without complications [facility] Plan of Treatment: Future Appointments (+ 6 months) and Future Tests (+/- 45 days) The Plan of Treatment section includes future care activities for the patient [facility] This section includes future appointments and future orders which are active, pending or scheduled. Future Appointments This section includes appointments that were scheduled to occur 6 months from the date of the Encounter, up to a maximum of 20 appointments. The data comes from all [place] treatment [facility]. Appointment Date/Time Appointment Type Appointme nt Facility Name Apr 23, 2024 03:00 PM AMBULATORY - MEDICINE [facility] Apr 29, 2024 01:00 PM AMBULATORY - NONE [facility] Apr 30, 2024 03:00 PM AMBULATORY - PSYCHIATRY [facility] May 03, 2024 10:30 AM AMBULATORY - SURGERY [facility] May 21, 2024 01:00 PM AMBULATORY - PSYCHIATRY [facility] May 31, 2024 10:30 AM AMBULATORY - SURGERY [facility] Jun 05, 2024 09:30 AM AMBULATORY - NONE [facility] Jun 14, 2024 11:00 AM AMBULATORY - SURGERY [facility] Jun 17, 2024 03:00 PM AMBULATORY - MEDICINE [facility] Jun 25, 2024 03:00 PM AMBULATORY - PSYCHIATRY [facility] Jul 01, 2024 10:30 AM AMBULATORY - NONE [facility] Jul 08, 2024 10:30 AM AMBULATORY - REHAB MEDICIN E [facility] Jul 18, 2024 02:00 PM AMBULATORY - MEDICINE [facility] Jul 22, 2024 03:00 PM AMBULATORY - NONE [facility] Aug 02, 2024 01:30 PM AMBULATORY - SURGERY [facility] Aug 08, 2024 02:00 PM AMBULATORY - PSYCHIATRY [facility] Aug 09, 2024 02:00 PM [facility] - SUR[facility] Aug 13, 2024 03:00 PM AMBULATORY - PSYCHIATRY [facility] Aug 27, 2024 09:30 AM AMBULATORY - REHAB MEDICIN E [facility] Sep 03, 2024 10:30 AM AMBULATORY - NONE [facility] Lab Results: +/- 30 days of the encounter This section includes the Chemistry and Hematology Lab Results on record with [place] for the patient. Radiology Reports and Pathology Reports are provided separately, in subsequent sections. Lab Results This section contains the Chemistry/Hematology Results that were resulted 30 days before or 30 daysafter the date of the Encounter. Date/Time Source Result Type Result - Unit Interpretation Reference Range Specimen Type Comment Apr 20, 2024 11:39 AM [facility] GLUCOSE,BLOOD-poct (STL) BLOOD Specimen Type: BLOOD Comment: Test Performed by: [id number] Meter #: [id number] Ordering Provider: KIKI PINA Report Released Date/Time: Apr 20, 2024 12:07 PM Reporting Lab: [address] [address] Performing Lab: [address] [address] GLUCOSE,BLOOD-poct (STL) 266 mg/dL H Apr 20, 2024 05:26 AM [facility] GLUCOSE,BLOOD-poct (STL) BLOOD Specimen Type: BLOOD Comment: Test Performed by: [id number] Meter #: [id number] Ordering Provider: KIKI PINA Report Released Date/Time: Apr 20, 2024 05:38 AM Reporting Lab: [place] [address] [facility] [address] Performing Lab: [address] [address] GLUCOSE,BLOOD-poct (STL) 157 mg/dL H -Apr 19, 2024 08:45 PM [facility] GLUCOSE,BLOOD-poct (STL) BLOOD Specimen Type: BLOOD Comment: Test Performed by: [id number] Meter #: [id number] Ordering Provider: KIKI PINA Report Released Date/Time: Apr 19, 2024 10:10 PM Reporting Lab: [address] [address] Performing Lab: [place] [id number] GLUCOSE,BLOOD-poct (STL) 232 mg/dL H 72-Apr 19, 2024 05:13 PM [facility] GLUCOSE,BLOOD-poct (STL) BLOOD Specimen Type: BLOOD Comment: Test Performed by: [id number] Meter #: [id number] Ordering Provider: KIKI PINA Report Released Date/Time: Apr 19, 2024 05:24 PM Reporting Lab: [address] [address] Performing Lab: [place] [phone] GLUCOSE,BLOOD-poct (STL) 176 mg/dL H -Apr 19, 2024 03:32 PM [facility] GLUCOSE,BLOOD-poct (STL) BLOOD Specimen Type: BLOOD Comment: Test Performed by: [id number] Meter #: [id number] Ordering Provider: LAUREN MOREL Report Released Date/Time: Apr 19, 2024 03:43 PM Reporting Lab: [address] [address] Performing Lab: [place] [phone] GLUCOSE,BLOOD-poct (STL) 155 mg/dL H 72-Apr 19, 2024 02:56 PM [facility] MRSA SURVL NARES DNA NARES Specimen [...] Apr 19, 2024 04:55 PM Reporting Lab: [address] [address] Performing Lab: [address] [address] MRSA SURVL NARES DNA Negative Negative Apr 19, 2024 10:33 AM [facility] GLUCOSE,BLOOD-poct (STL) BLOOD Specimen Type: BLOOD Comment: Test Performed by: [id number] Meter #: [id number] Ordering Provider: YONATHAN CORONEL Report Released Date/Time: Apr 19, 2024 10:50 AM Reporting Lab: [address] [address] Performing Lab: [address] [address] GLUCOSE,BLOOD-poct (L) 226 mg/dL H 72-99 Apr 08, 2024 03:28 PM [facility] PT/INR NEW (STL-MA) PLASMA Specimen Type: PLAS MA Comment: ~For Test: BASIC METABOLIC PANEL ~pre-op Ordering Provider: NOAH SANCHEZ Report Released Date/Time: Apr 02, 2024 12:39 PM Reporting Lab: [address] [address] Performing Lab: [address] [address] PROTIME 12.5 s 9.4-12.5 INR VALUE 1.1 {INR} Apr 08, 2024 03:28 PM [facility] BASIC METABOLIC PANEL PLASMA Specimen Type: PL ASMA Comment: ~For Test: BASIC METABOLIC PANEL ~pre-op Ordering Provider: NOAH SANCHEZ Report Released Date/Time: Apr 02, 2024 12:39 PM Reporting Lab: [address] [address] Performing Lab: [address] [address] CREATININE 1.59 mg/dL H 0.7-1.3 UREA NITROGEN 13.7 mg/dL 9.0-25.0 GLUCOSE 234 mg/dL H 72-99 SODIUM 139 meq/L 136-145 POTASSIUM 4.3 meq/L 3.5-5 CHLORIDE 104 meq/L 98-107 CARBON DIOXIDE 22 meq/L 22-31 CALCIUM 9.6 mg/dL 8.4-10.4 EGFR (CKD-EPI 2020) 50.6 >60 Apr 08, 2024 03:28 PM [facility] CBC BLOOD Specimen Type: BLOOD Comment: ~For Test: BASIC METABOLIC PANEL ~pre-op Ordering Provider: NOAH SANCHEZ Report Released Date/Time: Apr 02, 2024 12:39 PM Reporting Lab: [address] [address] Performing Lab: [address] [address] WBC 7.3 10*3/uL 3.6-11.2 RBC 5.23 10*6/uL [...] 0.60 BASOPHILS, ABSOLUTE 0.03 10*3/uL 0.00-0. 20 Vital Signs: All taken on the encounter date This section contains inpatient and outpatient Vital Signs collected on the date of the Encounter. Date/Time Temperature Pulse Blood Pressure Respiratory Rate SP02 Pain Height Weight Body Mass Index Source Apr 19, 2024 11:47 PM 9 [facility] Apr 19, 2024 08:37 PM 97.7 74 162/99 20 96 9 [facility] Apr 19, 2024 07:57 PM 4 [facility] Apr 19, 2024 06:32 PM 97.3 71 172/83 18 94 7 282.4 38 [facility] Apr 19, 2024 06:18 PM 6 [facility] Social History: Smoking Status (Most current) and Tobacco Use (All prior to encounter date) This section includes the most current, and the historical, smoking and tobacco- related health factors from the [place] facility where the Encounter took place. Current Smoking Status This section includes the most current smoking, or tobacco-related health factor, from the [place] facility where the Encounter took place. Date/Time Current Smoking Status Comment Facility May 26, 2000 01:36 PM CURRENT NON-TOBACC O USER-HX OF USE stop smoking 10yrs ago,started smoking at 14yrs,smoked 2packs a day [facility] Tobacco Use History This section includes a history of the smoking, or tobacco-related health factors, that were collected on or before the date of the Encounter. The data comes from the [place] facility where the Encounter took place. Date/Time Smoking Status/Tobacco Use Comment F acility Mar 07, 2000 12:35 PM CURRENT NON-TOBACC O USER-HX OF USE [facility] Advance Directives: All historical and current Section Date Range: From patient's date of to the date document was created. This section includes ALL of a patient's completed or amended [place] Advance and Rescinded Directives. The entries below indicate that a directive exists for the patient, but an actual copy is not included with this document. The data comes from all [facility]. Date Advance Directives Provider Source Oct 21, 2022 FRANKLIN KO [facility] Sep 23, 2004 ADVANCE DIRECTIVE CJ RUDOLPH [facility] May 24, 2004 ADVANCE DIRECTIVE MITCH ZEE [facility] May 24, 2000 ADVANCE DIRECTIVE MICHELE CENTENO [facility] Nov 11, 1996 ADVANCE DIRECTIVE MAGGIE DRAKE Kena [facility] December 08, 1995 ADVANCE DIRECTIVE KI SANTOYO [facility] Radiology Reports: +/- 30 days of the [...] the Encounter. The data comes from all [place] treatment facilities. Date/Time Radiology Report Provider Source Apr 08, 2024 03:15 PM CHEST X-RAY, 2 VIE WS: BETTY HAAS [id number] -1970 M Exm Date: APR 08, 2024@15:15 Req Phys: NOAH SANCHEZ Loc: -PRE-OP EVAL NURSING AM (Req Img Loc: -MAIN RADIOLOGY SUITE Service: [address] [address] (Case [id number] COMPLETE) CHEST X-RAY, 2 VIEWS (RAD Detailed) CPT:09801 Reason for Study: pre-op Clinical History: Report Status: Verified Date Reported: APR 08, 2024 Date Verified: APR 08, 2024 [employer] E-Sig:/ES/Franklin Hartley MD. FACR. Report: History: pre-op. Comparison: Prior chest examination-03/24/2023. Technique: PA and lateral views. Findings: No pulmonary consolidation, pleural effusion, pneumothorax, cardiomegaly or pulmonary edema is seen. Impression: No acute cardiopulmonary disease is seen. Primary Interpreting Staff: Franklin Hartley MD. FACR, Neuroradiologist ([employer]) /FRANKLIN KENDALL Kena [facility] Pathology Reports: +/- 30 days of the [...] the Encounter. The data comes from all [place] treatment facilities. Date/Time Pathology Report Provider Source [...] - - - POSTOPERATIVE DIAGNOSIS: Surgeon/physician: CHARLOTTE MOSS MD =-=-=-=-=-=-=-=-=-=-=-=-= -=-=-=-=-=-=-=-=-=-=-=-=- =-=-=-=-=-=-=-=-=-=-=-=-= -=-= - - [...] FOCAL ACTIVE CHRONIC INFLAMMATION FUNGAL ELEMENTS PRESENT /los/ CHRISTY MALCOLM Pathologist Signed Apr 23, 2024@14:03 Performing Laboratory: Surgical Pathology Report Performed By: [facility], [address]# [id number] [address] [facility] [address] [place] [address] $FTR - - - - - - - - - - - - - - - - - - - - - - - - - - - - - - - - - - - - - - - - (End of report) CHRISTY MALCOLM MD [facility] Date Apr 23, 2024 - - - - - - - - - - - - - - - - - - - - - - - - - - - - - - - - - - - - - - - - BETTY HAAS STANDARD FORM 515 ID:[id number] SEX:M :1970 AGE: 54 LOC:APFEE PCP: Yonathan Coronel NP /los/ CHRISTY MALCOLM Pathologist Signed: 04/23/2024 14:03 CHRISTY MALCOLM [facility] Apr 08, 2024 03:00 PM LR MICROBIOLOGY RE PORT: Accession [UID]: [id number] [[id number]] Received: Apr 08, 2024@15:27 Collection sample: URINE,CLEAN CATCH Collection date: Apr 08, 2024 15:00 Site/Specimen: URINE Provider: NOAH SANCHEZ Test(s) ordered: C&S URINE.................... . completed: Apr 09, 2024 22:40 * BACTERIOLOGY FINAL REPORT => Apr 09, 2024 22:47 TECH CODE: [id number] CULTURE RESULTS: STREP. AGALACTIAE, GRP. B - Quantity: >25,000 - <50,000 CFU/ML Comment: There will be no work up. Bacteriology Remark(s): -- RYAN 04/09/24 -- >25,000 - <50,000 CFU/ML S. AGAL - There will be no work up. <10,000 CFU/ML MIXED GRAM POSITIVE ORGANISM There will be no work up. =--=--=--=--=--=--=--=--= --=--=--=--=--=--=--=--=- -=--=--=--=--=--=--=--=-- =-- Performing Laboratory: Bacteriology Report Performed By: [facility] TERRANCE GARG [facility] CLIA# [id number] [address] [facility] [address] [place] [address] LUANA CINTRON [facility] Encounter Notes: All associated encounter notes This section contains the clinical notes associated to the Encounter. Date/Time Encounter Note(s) Provider Source Apr 20, 2024 03:22 PM DISCHARGE SUMMARY: LOCAL TITLE: DISCHARGE OBSERVATION SURGERY STL STANDARD TITLE: DISCHARGE SUMMARY DICT DATE: APR 20, 2024@11:14 ENTRY DATE: APR 20, 2024@11:14:51 DICTATED BY: KIKI PINA ATTENDING: CHARLOTTE MOSS URGENCY: routine STATUS: COMPLETED DISCHARGE OBSERVATION SURGERY ST[facility] DIAGNOSES: Other: Post op IPP Complications: none Comorbidities: PMH: 1) Abnormal results of liver function studies 2) Diverticulitis 3) Erectile dysfunction 4) Obesity 5) Chest pain 6) Sensory-neural hearing loss 7) Back pain 8) Benign hypertension 9) Convulsion 10) Male hypogonadism 11) Conversion disorder 12) Testicular hypofunction 13) Osteoarthritis of right knee joint 14) Diabetes mellitus 15) Turk's esophagus 16) Hyperlipidemia 17) Syncope 18) Obstructive sleep apnea 19) Nonalcoholic steatohepatitis 20) Hematuria 21) At risk for falls 22) Vitamin D deficiency 23) Debility 24) Adjustment disorder with mixed disturbance of emotions AND conduct 25) Restrictive lung disease 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 HOSPITAL COURSE: He uccessfully underwent a inflatable prosthesis surgery on 04/20/24. He was admittedovernight and continued on on IV Vancomycin and Unasyn. There were no complications with hiscase. Post-operatively he did well, was admitted back to 6N. He tolerated a regular diet immediately. He stayed overnight for observation. On POD 1, his Keith was removed and he voided without difficulty. His dressing was removed and he was tolerating a regular diet, he was given 24hr of Vanc/Unasyn and his pain was controlled with oral meds when he was discharged home. FOLLOW-UP ARRANGEMENTS: Follow up in Urology clinic in two weeks Patient to remove drain at home in 4 days DISCHARGE MEDICATIONS: Bactrim x 7 days DISCHARGE ACTIVITY: As tolerated, see discharge instructions. DISCHARGE DIET: Regular diet. VA COMPETENCY STATUS: This patient is competent in the VA sense of the word DISCHARGE MEDICATIONS: TO HELP YOU UNDERSTAND YOUR DRUG LIST ACTIVE means that you are presently taking these meds PENDING means that the medications have just been renewed or just ordered. HOLD means that the medications are on your list but will not be sent to you unless you or your doctor wants them taken off hold. NON-VA means you are getting the medication from somewhere besides the VA. Active Outpatient Medications (including Supplies): Active Outpatient Medications Status 1) ACCU-CHEK GUIDE (GLUCOSE) TEST STRIP USE 1 STRIP FOR ACTIVE BLOOD TEST TWICE A DAY ALTERNATING TIMES EACH DAY *STABLE INSULIN THERAPY* Mar 2) ALBUTEROL 90MCG (CFC-F) 200D ORAL INHL INHALE 2 PUFFS ACTIVE BY ORAL INHALATION FOUR TIMES A DAY NEEDED FOR BREATHING. SHAKE WELL. RINSE MOUTHPIECE FREQUENTLY TO PREVENT CLOGGING. 3) BETAMETHASONE DIPROPIONATE 0.05% OINT APPLY LIGHTLY ACTIVE TO AFFECTED AREA(S) THREE TIMES A DAY (EXTERNAL USE ONLY) 4) CETIRIZINE HCL 10MG TAB TAKE ONE TABLET BY MOUTH ONCE ACTIVE A DAY FOR ALLERGY SYMPTOMS 5) CHOLECALCIF 50MCG (D3-2,000UNIT) TAB TAKE TWO TABLETS ACTIVE BY MOUTH ONCE A DAY FOR VITAMIN D DEFICIENCY. 6) CPD-NALTREXONE 3MG (LOW DOSE) CAP TAKE 1 CAPSULE BY ACTIVE (S) MOUTH ONCE A DAY 7) CYANOCOBALAMIN 100MCG TAB TAKE ONE TABLET BY MOUTH ACTIVE (S) ONCE A DAY FOR B12 SUPPLEMENTATION 8) CYCLOBENZAPRINE HCL 10MG TAB TAKE ONE TABLET BY MOUTH ACTIVE THREE TIMES A DAY NEEDED FOR MUSCLE SPASM MAY CAUSE DROWSINESS. DO NOT DRINK ALCOHOL WHILE TAKING THIS MEDICATION. 9) DEXTROSE 24GM/31GM SQUEEZE TUBE TAKE 1 TUBE BY MOUTH ACTIVE ONCE A DAY NEEDED REPEAT DOSE IF HYPOGLYCEMIA CONTINUES 15 MINUTES AFTER THE FIRST DOSE. 10) DICLOFENAC NA 1% TOP GEL APPLY 4 GM TO AFFECTED ACTIVE AREA(S) FOUR TIMES A DAY FOR PAIN/INFLAMMATION; NOT MORE THAN 16 GRAMS DAILY TO ANY LOWER EXTREMITY JOINT. NOT MORE THAN 8 GRAMS DAILY TO ANY UPPER EXTREMITY JOINT. MAX 32GM/DAY OVER ALL JOINTS. (MEASURE DOSE WITH RULER ATTACHED INSIDE BOX) 11) DOCUSATE NA 100MG CAP TAKE ONE CAPSULE BY MOUTH TWICE ACTIVE A DAY FOR SOFTENING STOOL HOLD FOR LOOSE STOOL/DIARRHEA. 12) DRESSING,POLYSKIN II 2 X 2.75IN JEFFERY#0504 USE/APPLY ACTIVE DRESSING(S) TO AFFECTED AREA(S) DIRECTED FOR USE WITH GLUCOSE SENSOR 13) DULOXETINE HCL 30MG EC CAP TAKE ONE CAPSULE BY MOUTH ACTIVE ONCE A DAY FOR PTSD/MOOD/ANXIETY/PAIN DO NOT ABRUPTLY DISCONTINUE MEDICATION. 14) EMPAGLIFLOZIN 25MG TAB TAKE ONE TABLET BY MOUTH ONCE ACTIVE A DAY 15) EZETIMIBE 10MG TAB TAKE ONE TABLET BY MOUTH ONCE A ACTIVE (S) DAY TO LOWER CHOLESTEROL 16) GLIPIZIDE 5MG TAB TAKE ONE TABLET BY MOUTH TWO TIMES ACTIVE A DAY BEFORE MEALS TAKE 30 MINUTES BEFORE EATING. 17) GLUCOSE SENSOR FREESTYLE BREN 3 USE SENSOR EVERY ACTIVE 2 WEEKS FOR BLOOD SUGAR MONITORING CHANGE SENSOR/SITE EVERY 14 DAYS. TO REPLACE SENSOR FOR ANY REASON OR FOR TECHNICAL HELP PLEASE CALL [employer] DESK: -SPECIFIC PHONE NUMBER: [phone]). 18) GLUCOSE SENSOR FREESTYLE BREN 3 PLUS USE SENSOR ACTIVE EVERY 15 DAYS FOR BLOOD SUGAR MONITORING CHANGE SENSOR/SITE EVERY 15 DAYS. TO REPLACE SENSOR FOR ANY REASON OR FOR TECHNICAL HELP PLEASE CALL [employer] DESK: -SPECIFIC PHONE NUMBER: ([phone]). 19) LIDOCAINE 5% PATCH APPLY 1 PATCH TO SKIN SITE NIGHTLY ACTIVE NEEDED FOR PAIN. MAY USE 1-3 PATCHES. PATCHES MAY BE CUT TO FIT ONTO FEET. APPLY PATCH AND PRESS FIRMLY FOR 10-15 SECONDS. KEEP ON FOR 12 HOURS THEN REMOVE PATCH FOR 12 HOURS. 20) METFORMIN HCL 500MG 24HR SA TAB TAKE FOUR TABLETS BY ACTIVE MOUTH ONCE A DAY FOR BLOOD SUGAR CONTROL. TAKE WITH FOOD. AVOID ALCOHOL. DISCONTINUE BEFORE GETTING XRAY DYE. 21) POLYETHYLENE GLYCOL 3350 ORAL PWDR MIX AND DRINK 1 ACTIVE CAPFUL BY MOUTH ONCE A DAY NEEDED FOR CONSTIPATION (MEASURE WITH CAP AND MIX IN 8 OZ OF WATER) 22) PRAZOSIN HCL 2MG CAP TAKE THREE CAPSULES BY MOUTH AT ACTIVE BEDTIME FOR NIGHTMARES MAY CAUSE DIZZINESS OR DROWSINESS. 23) PREGABALIN 100MG ORAL CAP TAKE TWO CAPSULES BY MOUTH ACTIVE EVERY MORNING AND TAKE THREE CAPSULES EVERY EVENING FOR FIBROMYALGIA *MAY CAUSE DROWSINESS* 24) SEMAGLUTIDE 2MG/0.75ML INJ PEN 3ML INJECT 2MG UNDER ACTIVE THE SKIN EVERY WEEK FOR DIABETES 25) SODIUM CHLORIDE 0.65% SOLN NASAL SPRAY USE 1 SPRAY ACTIVE INTO NOSTRIL(S) EVERY 4 HOURS NEEDED FOR NASAL CONGESTION 26) TRAZODONE HCL 100MG TAB TAKE TWO TABLETS BY MOUTH AT ACTIVE BEDTIME FOR DEPRESSION Pending Outpatient Medications Status 1) ACETAMINOPHEN 500MG TAB TAKE TWO TABLETS BY MOUTH PENDING EVERY 6 HOURS NEEDED CAUTION: DO NOT EXCEED 4000MG PER DAY ACETAMINOPHEN (APAP) FROM ALL MEDS. 2) IBUPROFEN 600MG TAB TAKE ONE TABLET BY MOUTH FOUR PENDING TIMES A DAY NEEDED TAKE WITH FOOD. 3) OXYCODONE HCL 5MG TAB TAKE ONE TABLET BY MOUTH EVERY PENDING 6 HOURS NEEDED MAY CAUSE CONSTIPATION 4) SULFAMETHOXAZOLE 800/TRIMETH 160MG TAB TAKE 1 TABLET PENDING BY MOUTH EVERY 12 HOURS NEEDED TAKE WITH WATER/AVOID SUNLIGHT. Active Non-VA Medications Status 1) Non-VA TRIAMCINOLONE ACETONIDE 0.025% CREAM SPARINGLY ACTIVE TO AFFECTED AREA(S) TWICE A DAY 31 Total Medications - Please take only those medications on the above list. - At your next appointment, please remember to bring all of your medication bottles with you. Please include any vitamins, herbal supplements & over the counter medications. - If you have any further questions regarding your medications, please call your primary care clinic or if after hours, please call and ask surfacing machine operator to connect to Nurse Talk. NEW MEDICATIONS (and indications): Bactrim 1 week The following changes were made to the medications you were taking prior to this hospitalization: none These medications have been stopped during your hospitalization (and reason why): none At your next appointment, please remember to bring all of your medication bottles with you Medication Reconciliation: I have discussed active and pending medications with the patient and/or home care provider. I have made changes as appropriate................. ..YES DISCHARGE DIETARY INSTRUCTIONS: Your current weight is: 282.4 lb [128.09 kg] (04/19/2024 18:32) No Dietary Instructions If you have questions, contact the dietitians at . DISCHARGE PHYSICAL ACTIVITY INSTRUCTIONS: Other (specify below): No heavy lifting for 2 weeks WOUND MANAGEMENT: Other (specify below) see discharge instructions TOBACCO CESSATION EDUCATION/COUNSELING: The patient states he/she is not a tobacco user. WORSENING and/or DANGEROUS SYMPTOMS TO REPORT (Phys. entry required): Other (specify below) see discharge instructions Contact your Primary Care Physician Monday through Monday 8:00a.m. - 4:00p.m. After normal business hours the [place] Telephone Care Program is available (Monday through Monday 4p.m. to 8a.m.; Weekends and Holidays) at [phone] ext. [phone]. DISCHARGE INTRUCTIONAL MATERIALS *To be printed by Nurse and provided to patient Other (specify below) see discharge instructions FUTURE APPOINTMENT(S): To reschedule [facility] appointments call and use extension below. Date/time Clinic Phone number 04/29/24 1:00 pm [facility]-WS HW BFB IND PSO 04/30/24 3:00 pm [facility]-VVC PCT HASSAN PSO 05/23/24 3:00 pm [facility]-ENDOCRINOLOGY STAFF CONSULTANT 06/05/24 9:30 am COM CARE-STL DENTAL SPEC 06/17/24 3:00 pm [facility]-PULMONARY DEMIDENKO 07/04/24 10:00 am [facility]-PHONE PHARM PAIN [phone] 07/18/24 2:00 pm [facility]-PACT E STAFF CONSULTANT RESIDENT 10/25/24 10:30 am [facility]-HEP MELODY [phone] Follow-up with your Primary Care Physician: YONATHAN CORONEL in [place] *This listing may be incomplete. CONDITION OF PATIENT AT DISCHARGE: stable Time Spent: 31-[address] OF DISPOSITION: home OTHER (Include employment status): N/A NOTE: If you are having feelings of Depression or Emotional Distress, or feel you just need to talk with someone, please call 2 PRESS 1. Verified By MRT/RICH /los/ Kiki Pina MD Resident Physician Signed: 04/22/2024 07:45 /los/ CHARLOTTE MOSS MD Staff Physician, Urology Cosigned: 04/23/2024 08:22 [address]I [address] [facility] Apr 20, 2024 02:57 PM NURSING TRANSFER SUMMARIZATION DISCHARGE NOTE: LOCAL TITLE: RAMAN DISCHARGE/TRANSFER SUMMARY [facility] STANDARD TITLE: NURSING TRANSFER SUMMARIZATION DISCHARGE NOTE DATE OF NOTE: APR 20, 2024@14:57 ENTRY DATE: APR 20, 2024@14:57:17 AUTHOR: AYLIN KENDRICK EXP COSIGNER: URGENCY: STATUS: COMPLETED DISCHARGE - TRANSFER SUMMARY Action: Discharge Diagnosis: Last Admission: 04/19/24 4:25:57 pm Admit Dx: ED S/P IPP Age: 54 Allergies: NIACIN, SIMVASTATIN, COREG 25MG TABLET, PRAVASTATIN, SHRIMP, ATORVASTATIN ROSUVASTATIN, LOVASTATIN, PITAVASTATIN Patient Condition: Stable Vital Signs: Temperature: 97.3 F [36.3 C] (04/20/2024 12:24) Pulse: 62 (04/20/2024 12:24) Respiration: 20 (04/20/2024 12:24) Blood Pressure: 135/82 (04/20/2024 12:24) Pain: 3 (04/20/2024 12:24) Fall Risk Assessment Score: 50 Fall Risk Level: High Risk === SUICIDE SCREEN === Result of C-SSRS screener done was NEGATIVE. C-SSRS Screen is Negative Isolation: No Precautions: Fall Orientation: x3 Hygiene: Self Care Nutrition: Modified Diet: 60/60/60 Special needs: Assistance: Independent Bowel/Bladder: Date of last bowel movement: Mar Defecation: Able to void: Continent: Catheter: No Wound / Skin Condition: Assessment Type: SKIN REINSPECTION/REASSESSMENT SKIN INSPECTION: Skin Color: Usual for ethnicity Skin Temperature: Warm Skin Moisture: Normal Skin Turgor: Elastic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 stay--Be able to participate in daily activities --Achieve acceptable pain level per patient --Verbalize satisfaction with pain management ongoing --Verbalize understanding of disease --Be free of injury during hospital stay --Identify techniques that prevent, decrease pain and improve coping mechanism (i.e. relaxation techniques, biofeedback, TV or other diversions) --Patient's subjective perception of discomfort decreases as documented by pain scale or objective indicators such as grimacing, are absent or diminished Intervention: --Implement and document use of alternative non pharmacological interventions (i.e. hot/cold pack, massage, biofeedback, relaxation techniques distraction, etc.) --Administer medications per order --Assess pain characteristics and probable cause(s) (i.e. intensity, location, pain level on scale 1-10) --Monitor need for and evaluate patient's response to pain medication Q4hr. --Encourage verbalization of pain --Provide for patient safety --Provide instruction on causes of pain, appropriate prevention and relief measures --Referral to pain management committee for recommendations Patient education: --Normal function and disease process --Treatment regimen-purpose and effect including: Diet, medications, activity, risk factors, and significant symptoms. Care plan status: Continued Progress toward goals documented continuously through progress notes /es/ TOSHA LACKEY, RN REGISTERED NURSE Signed: 04/19/2024 17:49 04/20/2024 ADDENDUM STATUS: COMPLETED The Nursing Care Plan has been reviewed. Progress on the Goals/Outcomes is as follows: Care plan status: Continued Progress toward goals documented continuously through progress notes Discharge Planning: Assessment of patient/family's ability to manage care requirement post-discharge: GOOD Need identified at this time for referrals/resources post-discharge: UNCERTAIN Comment: TREATMENT PLAN Is the patient a fall risk? Yes. NURSING DIAGNOSIS: Falls Potential/Actual Injury Goals: Prior to discharge, patient will:--Injury due to fall will be minimized during hospital stay, --Verbalize safety measures to lower risk of fall/injury (lock w/c, use hand rails, ask for assistance) Mar, --Identify factor(s) that may increase risk of fall before discharge, --Maintain or preserve physical mobility during hospital stay Interventions: * Score 45 --Encourage pt to ask for assistance (MD LOUIS), --Ambulate with walker (if ordered), --Ambulate with assistance, --Keep night light and bathroom light on at night, --Keep wheelchair in locked position, --Check for elimination needs every 2 hours, --[place] to unit and surroundings (bathroom, call light, etc), --Provide non slip footwear when ambulating (NSG), --Place bed in low position or use low bed Care plan status: Continued Progress toward goals documented continuously through progress notes Patient Education(Nursing,SWS,PT/OT, Release And Technical Records Clerk,Die Repairer Trimmer Dies,&Physicia n) Instruct as to: NURSING DIAGNOSIS: Collaborative Problem Pre/Post-Operative/Procedure Care: IPP Goals:*Prior to discharge, patient will: --Achieve acceptable pain level or pain score <4 --Verbalize understanding, thoughts and feelings about surgery, diagnosis, prognosis and treatment plan before surgery/procedure. --Verbalize an understanding of usual pre-operative and/or post-operative routines before procedure --Demonstrate the ability to perform techniques to prevent complications post-operatively before procedure --Verbalize an understanding of, and plan for adhering to recommended follow - up care including future dietary modifications, activity level, treatments and medications --Will experience minimal to no post operative complications. Interventions:* --Encourage verbalization of fears and anxiety and provide feedback.(NSG, MD, Die Repairer Trimmer Dies) --Turn, cough and deep breathe PRN(Nursing, Physicians) --Maintain patency of drains/tubes. (Nursing & Physicians) --Inspect operative site PRN x 24 hours then PRN(Nursing) --Record Intake and Output PRN (Nursing). --Progressive ambulation per orders.(Nursing, Physicians, & PT.) --Monitor vital signs per MD order or hospital policy ---Every 4 hours x 24 hours post-operative/procedure. Care plan status: Continued Progress toward goals documented continuously through progress notes Patient Education: --Instruct the patient about pre-op/post-op protocol., --Demonstrate actions or techniques that patient will be expected to perform post/op turn, cough, and deep breathe, incentive spirometer, ROM, positioning. /los/ ION GONZALEZ, MSN, RN REGISTERED NURSE Signed: 04/20/2024 03:12 04/20/2024 ADDENDUM STATUS: COMPLETED Care plan resolved /los/ DARYA METZGER, RN REGISTERED NURSE Signed: 04/20/2024 14:56 STEPHANIEMARAHTOSHA [facility] Apr 19, 2024 04:42 PM ADMINISTRATIVE NOTE: LOCAL TITLE: ADMINISTRATIVE STL STANDARD TITLE: ADMINISTRATIVE NOTE DATE OF NOTE: APR 19, 2024@16:42 ENTRY DATE: APR 19, 2024@16:42:08 AUTHOR: BERT LOPEZ EXP COSIGNER: URGENCY: STATUS: COMPLETED THE PT BETTY COTO WAS ADMITTED TO [address] [place] [address] A OE PT the conversion is accomplished. /pamela LOPEZ ADVANCED COMPANION CAREGIVER Signed: 04/19/2024 16:47 Receipt Acknowledged By: * AWAITING SIGNATURE * ROBER SANCHEZ * AWAITING SIGNATURE * MITCHEL LEDBETTER * AWAITING SIGNATURE * DUNIA SALAZAR EVANS [facility] Apr 19, 2024 04:38 PM ADMINISTRATIVE NOTE: LOCAL TITLE: ADMINISTRATIVE STL STANDARD TITLE: ADMINISTRATIVE NOTE DATE OF NOTE: APR 19, 2024@16:38 ENTRY DATE: APR 19, 2024@16:38:31 AUTHOR: BERT LOPEZ EXP COSIGNER: URGENCY: STATUS: COMPLETED THE UROLOGIST Kiki Pina WAS MADE AWARE OF THE PT ADMISSION TO [address] [place] [address]. /pamela LOPEZ ADVANCED COMPANION CAREGIVER Signed: 04/19/2024 16:41 Receipt Acknowledged By: 05/01/2024 06:46 /los/ LUPE GOEL SUPERVISORY COMPANION CAREGIVER BERT LOPEZ [facility] Apr 19, 2024 03:30 PM OPERATIVE NOTE: LOCAL TITLE: BRIEF OP NOTE STL STANDARD TITLE: OPERATIVE NOTE DATE OF NOTE: APR 19, 2024@15:30 ENTRY DATE: APR 19, 2024@17:07:07 AUTHOR: KIKI PINA EXP COSIGNER: CHARLOTTE MOSS URGENCY: STATUS: COMPLETED Date of Surgery:Mar@17:07 Surgery Case #:[id number] Pre-Operative Diagnosis:erectile dysfunction, penile lesion Post-Operative Diagnosis:same Surgery Performed: Inflatable penile prosthesis implantation Biopsy of penile lesion Attending:Charlotte Moss Surgeon:Kiki Pina 1st Water Treatment Specialist:albert Type of Anesthesia:general Specimens:Yes If yes, Type and number of specimens: penile lesion Complications:none Estimated Blood Loss:minimal Blood Given? No If yes, how much? Fluid Replacement:see anethesia note Status En-Route to PACU? Critical: No Satisfactory: Yes /los/ Kiki Pina MD Resident Physician Signed: 04/19/2024 17:09 /los/ CHARLOTTE MOSS MD Staff Physician, Urology Cosigned: 04/23/2024 08:22 KIKI PINA [facility]
--- OUTSIDE RECORDS SUMMARY | 2024-11-30 15:23 | XMS_ITS | Encounter Summary ---
Author Name [facility] Organization [facility] Address [address] [place] [address] Care Team Providers Care Milieu Coordinator Name Role Phone YONATHAN LINDSAY Primary Care Provider OMEGA Bethea Unavailable Unavailable Selected Encounter This section includes the information on record at [place] for the Encounter. Date/Time Encounter Type Encounter Description Reason Provider Source Feb 23, 2024 10:30 AM OFFICE O/P EST MOD 30 MIN HEPATOLOGY CLINIC ICD-10-CM K75.81 Nonalcoholic steatohepatitis (QUIJANO) MARCIA SOLOMON [facility] Encounter Template Text not used by [place] Assessments - Encounter Diagnoses This section includes the primary and secondary diagnoses documented for the Encounter. Date/Time Primary/Secondary Diagnosis Diagnosis Name Provider Source Feb 23, 2024 11:00 AM PRIMARY Nonalcoholic steatohepatitis (QUIJANO) MARCIA SOLOMON [facility] Plan of Treatment: Future Appointments (+ 6 months) and Future Tests (+/- 45 days) The Plan of Treatment section includes future care activities for the patient from all [place] treatmentfacilities. This section includes future appointments and future orders which are active, pending or scheduled. Future Appointments This section includes appointments that were scheduled to occur 6 months from the date of the Encounter, up to a maximum of 20 appointments. The data comes from all [place] treatment facilities. Appointment Date/Time Appointment Type Appointme nt Facility Name Feb 26, 2024 03:00 PM AMBULATORY - MEDICINE [facility] Mar 05, 2024 03:00 PM AMBULATORY - PSYCHIATRY [facility] Mar 08, 2024 01:00 PM AMBULATORY - PSYCHIATRY [facility] Mar 26, 2024 03:00 PM AMBULATORY - PSYCHIATRY [facility] Apr 03, 2024 11:00 AM AMBULATORY - MEDICINE [facility] Apr 08, 2024 02:00 PM AMBULATORY - SURGERY [facility] Apr 09, 2024 01:00 PM AMBULATORY - NONE [facility] Apr 19, 2024 10:00 AM AMBULATORY - NONE [facility] Apr 23, 2024 03:00 PM AMBULATORY - MEDICINE [facility] Apr 29, 2024 01:00 PM AMBULATORY - NONE [facility] Apr 30, 2024 03:00 PM AMBULATORY - PSYCHIATRY [facility] May 03, 2024 10:30 AM [facility] May 21, 2024 01:00 PM AMBULATORY - PSYCHIATRY [facility] May 31, 2024 10:30 AM AMBULATORY - SURGERY [facility] Jun 05, 2024 09:30 AM AMBULATORY - NONE [facility] Jun 14, 2024 11:00 AM [facility] Jun 17, 2024 03:00 PM AMBULATORY - MEDICINE [facility] Jun 25, 2024 03:00 PM AMBULATORY - PSYCHIATRY [facility] Jul 01, 2024 10:30 AM AMBULATORY - NONE [facility] Jul 08, 2024 10:30 AM [facility] Lab Results: +/- 30 days of the [...] Unit Interpretation Reference Range Specimen Type Comment Feb 23, 2024 11:19 AM [facility] PT/INR NEW (STL-MA) PLASMA Specimen Type: PLASMA No comment entered. Ordering Provider: NIKA SOLOMON Report Released Date/Time: Feb 23, 2024 10:51 AM Reporting Lab: [facility] [address] [facility] [phone] Performing Lab: [facility] [address] [facility] [phone] PROTIME 12.2 s 9.4-12.5 INR VALUE 1.1 {INR} Feb 23, 2024 11:19 AM [facility] CONJ. BILIRUBIN PLASMA Specimen Type: PLASM A Comment: LDL Unable to be calculated LDL calculation invalid when Triglyceride exceeds 250 mg/dl Ordering Provider: NIKA SOLOMON Report Released Date/Time: Feb 23, 2024 10:51 AM Reporting Lab: [facility] [address] [facility] [phone] Performing Lab: [facility] [address] [facility] [phone] CONJ. BILIRUBIN 0.2 mg/dL 0-0.5 Feb 23, 2024 11:19 AM [facility] LIPID PANEL (STL) PLASMA Specimen Type: PLASM A Comment: LDL Unable to be calculated LDL calculation invalid when Triglyceride exceeds 250 mg/dl Ordering Provider: NIKA SOLOMON Report Released Date/Time: Feb 23, 2024 10:51 AM Reporting Lab: [facility] [address] [facility] [address] Performing Lab: [facility] [address] [facility] [phone] CHOLESTEROL 153 mg/dL 0-200 TRIGLYCERIDE 373 mg/dL H 0-150 DIRECT LDL 64 mg/dL L >100 CALCULATED LDL comment mg/dL HDL(New) 37 mg/dL L >40 Feb 23, 2024 11:19 AM [facility] COMPREHENSIVE METABOLIC PANEL PLASMA Specimen Type: PLASMA Comment: LDL Unable to be calculated LDL calculation invalid when Triglyceride exceeds 250 mg/dl Ordering Provider: NIKA SOLOMON Report Released Date/Time: Feb 23, 2024 10:51 AM Reporting Lab: [facility] [address] [place] [phone] Performing Lab: [address] [address] CREATININE 0.85 mg/dL 0.7-1.3 UREA NITROGEN 14.4 mg/dL 9.0-25.0 GLUCOSE 149 mg/dL H 72-99 SODIUM 138 meq/L 136-145 POTASSIUM 4.2 meq/L 3.5-5 CHLORIDE 106 meq/L 98-107 CARBON DIOXIDE 20 meq/L L 22-31 CALCIUM 9.6 mg/dL 8.4-10.4 PROTEIN 7.6 g/dL 6-8.6 ALBUMIN 4.1 g/dL 3.4-5 TOTAL BILIRUBIN 0.5 mg/dL 0.2-1.2 ALKALINE PHOSPHATASE 105 U/L 40-150 AST/SGOT 28 U/L 5-34 ALT/SGPT 38 U/L 8-40 EGFR (CKD-EPI 2020) 102.6 >60 Feb 23, 2024 11:19 AM [facility] CBC BLOOD Specimen Type: BLOOD No comment entered. Ordering Provider: NIKA SOLOMON Report Released Date/Time: Feb 23, 2024 10:51 AM Reporting Lab: [facility] [address] [place] [phone] Performing Lab: [address] [address] WBC 7.1 10*3/uL 3.6-11.2 RBC 5.10 10*6/uL 4.10-5.70 HGB 15.7 g/dL 13.1-16.8 HCT 45.7 38.2-48.4 MCV 89.6 fL 80.0-100.0 MCH 30.8 pg 27.0-34.0 MCHC 34.4 g/dL 33.0-36.0 PLT 161 10*3/uL 150-400 MPV 10.3 fL 7.5-11.2 RDW 12.9 11.8-15.1 LYMPHOCYTES, AUTO % 22 MONOCYTES, AUTO % 6 NEUTROPHILS, AUTO % 71 EOSINOPHILS, AUTO % 1 BASOPHILS, AUTO % 0 LYMPHOCYTES, ABSOLUTE 1.52 10*3/uL 0.77- 4.50 MONOCYTES, ABSOLUTE 0.41 10*3/uL 0.19-0. 80 NEUTROPHILS, ABSOLUTE 4.98 10*3/uL 2.10- 8.00 EOSINOPHILS, ABSOLUTE 0.09 10*3/uL 0.00- 0.60 BASOPHILS, ABSOLUTE 0.02 10*3/uL 0.00-0. 20 Vital Signs: All taken on the encounter date This section contains inpatient and outpatient Vital Signs collected on the date of the Encounter. Date/Time Temperature Pulse Blood Pressure Respiratory Rate SP02 Pain Height Weight Body Mass Index Source Feb 23, 2024 10:24 AM 98.1 76 128/82 20 95 [facility] Social History: Smoking Status (Most current) and Tobacco Use (All prior to encounter date) This section includes the most current, and the historical, smoking and tobacco- related health factors from the [place] facility where the Encounter took place. Current Smoking Status This section includes the most current smoking, or tobacco-related health factor, from the [place] facility where the Encounter took place. Date/Time Current Smoking Status Comment Facility May 26, 2000 01:36 PM CURRENT NON-TOBACC O USER-HX OF USE stop smoking 10yrs ago,started smoking at 14yrs,smoked 2packs a day [facility] Tobacco Use History This section includes a history of the smoking, or tobacco-related health factors, that were collected on or before the date of the Encounter. The data comes from the [place] facility where the Encounter took place. Date/Time Smoking Status/Tobacco Use Comment F acility Mar 07, 2000 12:35 PM CURRENT NON-TOBACC O USER-HX OF USE [facility] Advance Directives: All historical and current Section Date Range: From patient's date of to the date document was created. This section includes ALL of a patient's completed or amended [place] Advance and Rescinded Directives. The entries below indicate that a directive exists for the patient, but an actual copy is not included with this document. The data comes from all [place] facilities. Date Advance Directives Provider Source Oct 21, 2022 [facility] Sep 23, 2004 ADVANCE DIRECTIVE CJ RUDOLPH [facility] May 24, 2004 ADVANCE DIRECTIVE SAADIAMITCH [facility] May 24, 2000 ADVANCE DIRECTIVE MICHELE CENTENO Yon MOY [facility] Nov 11, 1996 ADVANCE DIRECTIVE MAGGIE DRAKE [facility] December 08, 1995 ADVANCE DIRECTIVE KI SANTOYO [facility] Encounter Notes: All associated encounter notes This section contains the clinical notes associated to the Encounter. Date/Time Encounter Note(s) Provider Source Feb 23, 2024 10:17 PM ADDENDUM: LOCAL TITLE: Addendum STANDARD TITLE: ADDENDUM DATE OF NOTE: FEB 23, 2024@22:17:01 ENTRY DATE: FEB 23, 2024@22:17:02 AUTHOR: NIKA SOLOMON EXP COSIGNER: URGENCY: STATUS: COMPLETED Labs from today: CBC and LFT's are normal. High triglycerides 373 Plan: As described in my clinica note. /los/ NIKA SOLOMON Staff Physician Signed: 02/23/2024 22:19 Receipt Acknowledged By: 02/27/2024 12:00 /los/ LAXMI LANGFORD RN HEPATOLOGY NON CATEGORICAL PRESCHOOL TEACHER --- Original Document --- 02/23/24 GASTROENTEROLOGY OUTPATIENT FOLLOW UP STL: HPI: Mr. Haas is a 53-year-old gentleman that he is known to our gastroenterology luminal section. 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 I saw him today for the first time. He came to clinic with his dog and his daughter. He came in a wheelchair and during his waiting time in the waiting area he had a pseudoseizure. He had a second pseudoseizure while I was examining him. He claims that his pseudoseizures are frequent when he is tired or when he does not sleep well. He has a long history of drinking alcohol in excess for about 20 years starting at age 20. He used to drink 20-30 beers twice a week and the other days he drank whiskey or rum. For the last 10 years he has been drinking only socially. He also has a history of type 2 diabetes, systemic hypertension, hyperlipidemia and obesity. Along his above problems, his file history shows elevated liver enzymes with ALT over AST without liver synthetic dysfunction or thrombocytopenia. He also has a liver ultrasound that shows a fatty liver but no morphologic changes of cirrhosis. Today he will get a FibroScan. 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 ROS: Pseudoseizures while in the waiting room and inside the clinic office. Chronic fatigue. PHYSICIAL EXAMINATION: Vitals: BP 128/82 (02/23/2024 10:24) HR 76 (02/23/2024 10:24) RR 20 (02/23/2024 10:24) WT Measurement DT WEIGHT LB(KG)[BMI] 01/15/2024 11:21 278(126.10)[38*] 12/19/2023 13:08 278.1(126.14)[38*] 12/14/2023 11:01 276.2(125.28)[38*] BMI 37.8 General: Obesity, well nourished, well developed. Came to clinic in a wheelchair. Eyes: anicteric with normal reflexes. Oral mucosa: moist, oropharynx clear. Normal dentition. Neck: supple, no JVD or LAD Chest: clear to auscultation bilaterally. Heart RRR. Abdomen: soft, non-tender, non-distended, with no organomegaly or ascites. Normal peristalsis. Extremities: normal pulses and reflexes. No muscle wasting. Neuro: intact Skin: no rashes, no telangiectasia. No palmar erythema. LABS: CBC: WBC 5.9 10*3/uL 12/14/2023 11:58 RBC 5.18 10*6/uL 12/14/2023 11:58 HGB 16.2 g/dL 12/14/2023 11:58 HCT 47.3 % 12/14/2023 11:58 MCV 91.3 fL 12/14/2023 11:58 MCH 31.3 pg 12/14/2023 11:58 MCHC 34.2 g/dL 12/14/2023 11:58 RDW 12.5 % 12/14/2023 11:58 PLT 158 10*3/uL 12/14/2023 11:58 MPV 10.4 fL 12/14/2023 11:58 NEUTROPHILS, AUTO % 68 % 12/14/2023 11:58 LYMPHOCYTES, AUTO % 25 % 12/14/2023 11:58 MONOCYTES, AUTO % 5 % 12/14/2023 11:58 EOSINOPHILS, AUTO % 2 % 12/14/2023 11:58 BASOPHILS, AUTO % 1 % 12/14/2023 11:58 IMMATURE GRANS, AUTO % 0.4 % 03/01/2022 15:35 NEUTROPHILS, ABSOLUTE 4.00 10*3/uL 12/14/2023 11:58 LYMPHOCYTES, ABSOLUTE 1.48 10*3/uL 12/14/2023 11:58 MONOCYTES, ABSOLUTE 0.29 10*3/uL 12/14/2023 11:58 EOSINOPHILS, ABSOLUTE 0.10 10*3/uL 12/14/2023 11:58 BASOPHILS, ABSOLUTE 0.03 10*3/uL 12/14/2023 11:58 IMMATURE GRANS, AUTO ABS 0.02 10*3/uL 03/01/2022 15:35 SGOT: 32 U/L (12/14/23 11:58) SGPT: 44 U/L H (12/14/23 11:58) Alk Phos: ALKALINE PHOSPHATASE 130 U/L 12/14/2023 11:58 T.Bili TOTAL BILIRUBIN 0.5 mg/dL 12/14/2023 11:58 Collection DT Specimen Test Name Result Units Ref Range 04/23/1997 15:05 SERUM URIC ACID 4.8 mg/dl 3.5 - 7.2 06/04/1996 15:03 SERUM URIC ACID 5.8 mg/dl 3.5 - 7.2 Comment: PROTEIN reported incorrectly as 1.0 10/06/1995 15:05 SERUM URIC ACID 6.1 mg/dl 3.5 - 7.2 08/31/1995 07:46 SERUM URIC ACID 6.2 mg/dl 3.5 - 7.2 Comment: LIPASE IS 32 BY SIGMA METHOD WITH NORMALS 7-70 U/L 02/07/1994 13:03 SERUM URIC ACID 6 mg/dl 3.5 - 7.2 12.9 mg/dL (12/14/23 11:58) CREATININE 0.90 mg/dL 12/14/2023 11:58 CREATININE 0.90 mg/dL 12/14/2023 11:58 EGFR (CKD-EPI 2020) 100.9 12/14/2023 11:58 TSH: TSH 1.176 uIU/mL 05/15/2023 15:37 PT:____ INR: No INR EO data found____ Na+: SODIUM 139 mEq/L 12/14/2023 11:58 K+: POTASSIUM 4.4 mEq/L 12/14/2023 11:58 Cl-: 105 mEq/L (12/14/23 11:58) CO2: CARBON DIOXIDE 25 mEq/L 12/14/2023 11:58 BUN: 12.9 mg/dL (12/14/23 11:58) Cr: CREATININE 0.90 mg/dL 12/14/2023 11:58 Glc: GLUCOSE 184 H mg/dL 12/14/2023 11:58 Prt: PROTEIN 7.7 g/dL 12/14/2023 11:58 Albumin: ALBUMIN 4.2 g/dL 12/14/2023 11:58 ALBUMIN (PB-sendout) 4.4 g/dL 04/07/2022 09:20 RADIOLOGY: Impression for US ABDOMEN LTD, SINGLE ORG OR QUADRANT, 01/15/24, case [id number] 1. Hepatic steatosis. 2. No evidence of cholelithiasis or cholecystitis. Report dictated by Lucien Webster (residential carpet installer) I, Jama Luna, have reviewed the images and report and concur with these findings. Impression for CT ABDOMEN AND PELVIS WITH AND WITHOUT CONTRAST, 07/02/21, case [id number] 1. No genitourinary lesions are identified to explain the reported clinical findings. Report drafted by Quique Desai M.D. (resident). I, Isaias Alcala, have reviewed the images and report and concur with these findings. No data available for: CT ABDOMEN W/CONT CT ABDOMEN W/O CONT CT ABDOMEN W&W/O CONT MRI ABDOMEN W/O CONT MRI ABDOMEN W CONT MRI ABDOMEN W/O&W CONT PROCEDURES: FIBROSCAN: Today Assessment/Plan: Mr. Haas is a 53-year-old gentleman with multiple comorbid conditions. Some of them are associated with metabolic syndrome or metabolic dysfunctions associated with steatotic liver disease. He has a prior liver ultrasound showing hepatic steatosis and a long history of elevated liver enzymes. In addition he also has a history of drinking alcohol heavily for 20 years. Patient will get a FibroScan today to evaluate for fatty infiltration and fibrosis. I discussed with the patient in simple words and withdrawing the pathophysiology of MASH and the deleterious effect that alcohol has on this condition. I encouraged him to lose weight. Other than the FibroScan, he will get baseline blood work today including a lipid panel. Patient will be scheduled to come back to clinic in 6 months. Please do not hesitate to contact me with any questions or concerns regarding my impression and plan. /los/ NIKA SOLOMON Staff Physician Signed: 02/23/2024 11:00 Receipt Acknowledged By: 02/23/2024 11:14 /los/ LAXMI LANGFORD RN HEPATOLOGY NON CATEGORICAL PRESCHOOL TEACHER NIKA SOLOMON [facility] Feb 23, 2024 11:08 AM GASTROENTEROLOGY N OTE: LOCAL TITLE: GASTROENTEROLOGY FIBROSCAN STL STANDARD TITLE: GASTROENTEROLOGY NOTE DATE OF NOTE: FEB 23, 2024@11:08 ENTRY DATE: FEB 23, 2024@11:08:46 AUTHOR: LAXMI LANGFORD EXP COSIGNER: URGENCY: STATUS: COMPLETED GASTROENTEROLOGY FIBROSCAN STL Has ADDENDA FibroScan Liver Testing - VCTE vibration controlled transient elastrography Referring GI/Liver Provider: NIKA SOLOMON MD Indications: STEATOSIS, DM, ELEVATED LIPIDS, ETOH HX Pre procedure check list: NPO solids and liquids x 2 H, No implanted electrical medical insurance claims processor, No , No significant inflammation/acute hepatitis, No right heart failure with congestive hepatopathy, No ascites, cholestasis or jaundice Results: Median kPa: 14.8 Median CAP dB/m: 314 IQR/Median %: 17% Technical Difficulty: XL PROBE USED Performed by: LAXMI LANGFORD, RN, BSN Interpretation: SEVERE STEATOSIS AND ADVANCED FIBROSIS CAP Performance by Steatosis Grade GRADE CAP Cutoff Steatosis Affected dB/m Grade Hypatocytes -------- S0 vs S1-S3 248 S1 <33% S0-S1 vs S2-S3 268 S2 >33-66% S0-S2 vs S3 280 S3 >66% Recommend Cutoff Values for Different Stages of Fibrosis DISEASE FIBROSIS STAGE and CUTOFF VALUE F0-F1,kPa >=F2,kPa >=F3,kPa >=F4,kPa HBV <=6 7.2 8.1 11 HCV <=7 8.8 9.6 14.6 HIV/HCV - >7 >=11.5 >=14 Cholestatic Dz <=7 7.3 9.8 17.3 NAFLD/QUIJANO <=7 >=7.5 <=10 >=14 Alcohol - 7.8 11 19.5 Abbreviation Padilla: kPa = kilopascal IQR = Interquartile Percentile dB/m = decibel per meter Summary of reference values can be found: Rochelle Tee. Use of FibroScan for Noninvasive Assessments of Liver Disease, Gastroenterology and Endoscopy News October 2013 Nils et al.Assessessment of liver fibrosis using transient elastography in patient with alcoholic liver disease. Journal of Hepatology [phone])7412-8 *See [facility] for imaging details /pamela LANGFORD RN HEPATOLOGY NON CATEGORICAL PRESCHOOL TEACHER Signed: 02/23/2024 11:11 Receipt Acknowledged By: 02/23/2024 13:40 /pamela SOLOMON Staff Physician 02/23/2024 ADDENDUM STATUS: COMPLETED I have reviewed the fibroscan report, and agree with the interpretation. /pamela SOLOMON Staff Physician Signed: 02/23/2024 13:40 LAXMI LANGFORD [facility] Feb 23, 2024 10:52 AM GASTROENTEROLOGY O UTPATIENT NOTE: LOCAL TITLE: GASTROENTEROLOGY OUTPATIENT FOLLOW UP ST STANDARD TITLE: GASTROENTEROLOGY OUTPATIENT NOTE DATE OF NOTE: FEB 23, 2024@10:52 ENTRY DATE: FEB 23, 2024@10:52:07 AUTHOR: NIKA SOLOMON EXP COSIGNER: URGENCY: STATUS: COMPLETED GASTROENTEROLOGY OUTPATIENT FOLLOW UP STL Has ADDENDA HPI: Mr. Haas is a 53-year-old gentleman that he is known to our gastroenterology luminal section. 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 I saw him today for the first time. He came to clinic with his dog and his daughter. He came in a wheelchair and during his waiting time in the waiting area he had a pseudoseizure. He had a second pseudoseizure while I was examining him. He claims that his pseudoseizures are frequent when he is tired or when he does not sleep well. He has a long history of drinking alcohol in excess for about 20 years starting at age 20. He used to drink 20-30 beers twice a week and the other days he drank whiskey or rum. For the last 10 years he has been drinking only socially. He also has a history of type 2 diabetes, systemic hypertension, hyperlipidemia and obesity. Along his above problems, his file history shows elevated liver enzymes with ALT over AST without liver synthetic dysfunction or thrombocytopenia. He also has a liver ultrasound that shows a fatty liver but no morphologic changes of cirrhosis. Today he will get a FibroScan. 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 ROS: Pseudoseizures while in the waiting room and inside the clinic office. Chronic fatigue. PHYSICIAL EXAMINATION: Vitals: BP 128/82 (02/23/2024 10:24) HR 76 (02/23/2024 10:24) RR 20 (02/23/2024 10:24) WT Measurement DT WEIGHT LB(KG)[BMI] 01/15/2024 11:21 278(126.10)[38*] 12/19/2023 13:08 278.1(126.14)[38*] 12/14/2023 11:01 276.2(125.28)[38*] BMI 37.8 General: Obesity, well nourished, well developed. Came to clinic in a wheelchair. Eyes: anicteric with normal reflexes. Oral mucosa: moist, oropharynx clear. Normal dentition. Neck: supple, no JVD or LAD Chest: clear to auscultation bilaterally. Heart RRR. Abdomen: soft, non-tender, non-distended, with no organomegaly or ascites. Normal peristalsis. Extremities: normal pulses and reflexes. No muscle wasting. Neuro: intact Skin: no rashes, no telangiectasia. No palmar erythema. LABS: CBC: WBC 5.9 10*3/uL 12/14/2023 11:58 RBC 5.18 10*6/uL 12/14/2023 11:58 HGB 16.2 g/dL 12/14/2023 11:58 HCT 47.3 % 12/14/2023 11:58 MCV 91.3 fL 12/14/2023 11:58 MCH 31.3 pg 12/14/2023 11:58 MCHC 34.2 g/dL 12/14/2023 11:58 RDW 12.5 % 12/14/2023 11:58 PLT 158 10*3/uL 12/14/2023 11:58 MPV 10.4 fL 12/14/2023 11:58 NEUTROPHILS, AUTO % 68 % 12/14/2023 11:58 LYMPHOCYTES, AUTO % 25 % 12/14/2023 11:58 MONOCYTES, AUTO % 5 % 12/14/2023 11:58 EOSINOPHILS, AUTO % 2 % 12/14/2023 11:58 BASOPHILS, AUTO % 1 % 12/14/2023 11:58 IMMATURE GRANS, AUTO % 0.4 % 03/01/2022 15:35 NEUTROPHILS, ABSOLUTE 4.00 10*3/uL 12/14/2023 11:58 LYMPHOCYTES, ABSOLUTE 1.48 10*3/uL 12/14/2023 11:58 MONOCYTES, ABSOLUTE 0.29 10*3/uL 12/14/2023 11:58 EOSINOPHILS, ABSOLUTE 0.10 10*3/uL 12/14/2023 11:58 BASOPHILS, ABSOLUTE 0.03 10*3/uL 12/14/2023 11:58 IMMATURE GRANS, AUTO ABS 0.02 10*3/uL 03/01/2022 15:35 SGOT: 32 U/L (12/14/23 11:58) SGPT: 44 U/L H (12/14/23 11:58) Alk Phos: ALKALINE PHOSPHATASE 130 U/L 12/14/2023 11:58 T.Bili TOTAL BILIRUBIN 0.5 mg/dL 12/14/2023 11:58 Collection DT Specimen Test Name Result Units Ref Range 04/23/1997 15:05 SERUM URIC ACID 4.8 mg/dl 3.5 - 7.2 06/04/1996 15:03 SERUM URIC ACID 5.8 mg/dl 3.5 - 7.2 Comment: PROTEIN reported incorrectly as 1.0 10/06/1995 15:05 SERUM URIC ACID 6.1 mg/dl 3.5 - 7.2 08/31/1995 07:46 SERUM URIC ACID 6.2 mg/dl 3.5 - 7.2 Comment: LIPASE IS 32 BY SIGMA METHOD WITH NORMALS 7-70 U/L 02/07/1994 13:03 SERUM URIC ACID 6 mg/dl 3.5 - 7.2 12.9 mg/dL (12/14/23 11:58) CREATININE 0.90 mg/dL 12/14/2023 11:58 CREATININE 0.90 mg/dL 12/14/2023 11:58 EGFR (CKD-EPI 2020) 100.9 12/14/2023 11:58 TSH: TSH 1.176 uIU/mL 05/15/2023 15:37 PT:____ INR: No INR EO data found____ Na+: SODIUM 139 mEq/L 12/14/2023 11:58 K+: POTASSIUM 4.4 mEq/L 12/14/2023 11:58 Cl-: 105 mEq/L (12/14/23 11:58) CO2: CARBON DIOXIDE 25 mEq/L 12/14/2023 11:58 BUN: 12.9 mg/dL (12/14/23 11:58) Cr: CREATININE 0.90 mg/dL 12/14/2023 11:58 Glc: GLUCOSE 184 H mg/dL 12/14/2023 11:58 Prt: PROTEIN 7.7 g/dL 12/14/2023 11:58 Albumin: ALBUMIN 4.2 g/dL 12/14/2023 11:58 ALBUMIN (PB-sendout) 4.4 g/dL 04/07/2022 09:20 RADIOLOGY: Impression for US ABDOMEN LTD, SINGLE ORG OR QUADRANT, 01/15/24, case [id number] 1. Hepatic steatosis. 2. No evidence of cholelithiasis or cholecystitis. Report dictated by Lucien Webster (residential carpet installer) I, Jama Luna, have reviewed the images and report and concur with these findings. Impression for CT ABDOMEN AND PELVIS WITH AND WITHOUT CONTRAST, 07/02/21, case [id number] 1. No genitourinary lesions are identified to explain the reported clinical findings. Report drafted by Quique Desai M.D. (resident). I, Isaias Alcala, have reviewed the images and report and concur with these findings. No data available for: CT ABDOMEN W/CONT CT ABDOMEN W/O CONT CT ABDOMEN W&W/O CONT MRI ABDOMEN W/O CONT MRI ABDOMEN W CONT MRI ABDOMEN W/O&W CONT PROCEDURES: FIBROSCAN: Today Assessment/Plan: Mr. Hasa is a 53-year-old gentleman with multiple comorbid conditions. Some of them are associated with metabolic syndrome or metabolic dysfunctions associated with steatotic liver disease. He has a prior liver ultrasound showing hepatic steatosis and a long history of elevated liver enzymes. In addition he also has a history of drinking alcohol heavily for 20 years. Patient will get a FibroScan today to evaluate for fatty infiltration and fibrosis. I discussed with the patient in simple words and withdrawing the pathophysiology of MASH and the deleterious effect that alcohol has on this condition. I encouraged him to lose weight. Other than the FibroScan, he will get baseline blood work today including a lipid panel. Patient will be scheduled to come back to clinic in 6 months. Please do not hesitate to contact me with any questions or concerns regarding my impression and plan. /los/ NIKA SOLOMON Staff Physician Signed: 02/23/2024 11:00 Receipt Acknowledged By: 02/23/2024 11:14 /los/ LAXMI LANGFORD RN HEPATOLOGY NON CATEGORICAL PRESCHOOL TEACHER 02/23/2024 ADDENDUM STATUS: COMPLETED Labs from today: CBC and LFT's are normal. High triglycerides 373 Plan: As described in my clinica note. /pamela SOLOMON Staff Physician Signed: 02/23/2024 22:19 Receipt Acknowledged By: 02/27/2024 12:00 /pamela LANGFORD RN HEPATOLOGY NON CATEGORICAL PRESCHOOL TEACHER 02/27/2024 ADDENDUM STATUS: COMPLETED I called and spoke to pt's to report his 02/[address] Solomon's review, and to continue close f/u w/ PCP for continued lipid control. She voiced understanding and did nto have any additional questions. /es/ LAXMI LANGFORD RN HEPATOLOGY NON CATEGORICAL PRESCHOOL TEACHER Signed: 02/27/2024 12:06 NIKA SOLOMON [facility]
--- OUTSIDE RECORDS SUMMARY | 2024-11-30 15:24 | XMS_ITS | Encounter Summary ---
Author Name [facility] [place] [facility] [place] Address [address] [place] [address] Care Team Providers Care Termite Control Representative Name Role Phone YONATHAN CORONEL Primary Care Provider OMEGA Bethea Unavailable Unavailable Selected Encounter This section includes the information on record at [place] for the Encounter. Date/Time Encounter Type Encounter Description Reason Provider Source Apr 19, 2024 08:50 AM OFFICE O/P EST MOD 30 MIN ANESTHESIA PRE/POST-OP CONSULT ICD-10-CM Z01.818 Encounter for other preprocedural examination CRISTIAN CANDELARIA IHYumi Encounter Template Text not used by [place] Assessments - Encounter Diagnoses This section includes the primary and secondary diagnoses documented for the Encounter. Date/Time Primary/Secondary Diagnosis Diagnosis Name Provider Source Apr 19, 2024 12:16 PM PRIMARY Encounter for other preprocedural examination STEFAN CANDELARIA [facility] Apr 19, 2024 12:16 PM SECONDARY Encounter for other specified surgical aftercare STEFAN CANDELARIA [facility] Plan of Treatment: Future Appointments (+ 6 months) and Future Tests (+/- 45 days) The Plan of Treatment section includes future care activities for the patient from all [place] treatmentfacilities. This section includes future appointments and future orders which are active, pending or scheduled. Future Appointments This section includes appointments that were scheduled to occur 6 months from the date of the Encounter, up to a maximum of 20 appointments. The data comes from all [place] treatment facilities. Appointment Date/Time Appointment Type Appointme nt Facility Name Apr 23, 2024 03:00 PM AMBULATORY - MEDICINE [facility] Apr 29, 2024 01:00 PM AMBULATORY - NONE [facility] Apr 30, 2024 03:00 PM AMBULATORY - PSYCHIATRY [facility] May 03, 2024 10:30 AM AMBULATORY - SURGERY [facility] May 21, 2024 01:00 PM AMBULATORY - PSYCHIATRY [facility] May 31, 2024 10:30 AM [facility] Jun 05, 2024 09:30 AM AMBULATORY - NONE . [facility] Jun 14, 2024 11:00 AM AMBULATORY - SURGERY [facility] Jun 17, 2024 03:00 PM AMBULATORY - MEDICINE [facility] Jun 25, 2024 03:00 PM AMBULATORY - PSYCHIATRY [facility] Jul 01, 2024 10:30 AM AMBULATORY - NONE [facility] Jul 08, 2024 10:30 AM AMBULATORY - REHAB MEDICIN E [facility] Jul 18, 2024 02:00 PM AMBULATORY - MEDICINE [facility] Jul 22, 2024 03:00 PM AMBULATORY - NONE [facility] Aug 02, 2024 01:30 PM AMBULATORY - SURGERY [facility] Aug 08, 2024 02:00 PM AMBULATORY - PSYCHIATRY [facility] Aug 09, 2024 02:00 PM AMBULATORY - SURGERY [facility] Aug 13, 2024 03:00 PM AMBULATORY - PSYCHIATRY [facility] Aug 27, 2024 09:30 AM AMBULATORY - REHAB MEDICIN E [facility] Sep 03, 2024 10:30 AM AMBULATORY - NONE [facility] Lab Results: +/- 30 days of the encounter This section includes the Chemistry and Hematology Lab Results on record with [place] for the patient. Radiology Reports and Pathology Reports are provided separately, in subsequent sections. Lab Results This section contains the Chemistry/Hematology Results that were resulted 30 days before or 30 daysafter the date of the Encounter. Date/Time Source Result Type Result - Unit Interpretation Reference Range Specimen Type Comment Apr 20, 2024 11:39 AM [facility] GLUCOSE,BLOOD-poct (STL) BLOOD Specimen Type: BLOOD Comment: Test Performed by: [id number] Meter #: [id number] Ordering Provider: KIKI PINA Report Released Date/Time: Apr 20, 2024 12:07 PM Reporting Lab: [address] [address] Performing Lab: [address] [address] GLUCOSE,BLOOD-poct (STL) 266 mg/dL H 72-Apr 20, 2024 05:26 AM [facility] GLUCOSE,BLOOD-poct (STL) BLOOD Specimen Type: BLOOD Comment: Test Performed by: [id number] Meter #: [id number] Ordering Provider: KIKI PINA Report Released Date/Time: Apr 20, 2024 05:38 AM Reporting Lab: [address] [address] Performing Lab: [address] [address] GLUCOSE,BLOOD-poct (STL) 157 mg/dL H -Apr 19, 2024 08:45 PM [facility] GLUCOSE,BLOOD-poct (STL) BLOOD Specimen Type: BLOOD Comment: Test Performed by: [id number] Meter #: [id number] Ordering Provider: KIKI PINA Report Released Date/Time: Apr 19, 2024 10:10 PM Reporting Lab: [address] [address] Performing Lab: [address] [address] GLUCOSE,BLOOD-poct (STL) 232 mg/dL H 72-Apr 19, 2024 05:13 PM [facility] GLUCOSE,BLOOD-poct (STL) BLOOD Specimen Type: BLOOD Comment: Test Performed by: [id number] Meter #: [id number] Ordering Provider: KIKI PINA Report Released Date/Time: Apr 19, 2024 05:24 PM Reporting Lab: [address] [address] Performing Lab: [address] [address] GLUCOSE,BLOOD-poct (STL) 176 mg/dL H 72-99 Apr 19, 2024 03:32 PM [facility] GLUCOSE,BLOOD-poct (STL) BLOOD Specimen Type: BLOOD Comment: Test Performed by: [id number] Meter #: [id number] Ordering Provider: LAUREN MOREL Report Released Date/Time: Apr 19, 2024 03:43 PM Reporting Lab: [address] [address] Performing Lab: [address] [address] GLUCOSE,BLOOD-poct (STL) 155 mg/dL H 72-99 Apr 19, 2024 02:56 PM [facility] MRSA SURVL NARES DNA NARES Specimen Type: [...] Apr 19, 2024 04:55 PM Reporting Lab: [address] [address] Performing Lab: [address] [address] MRSA SURVL NARES DNA Negative Negative Apr 19, 2024 10:33 AM [facility] GLUCOSE,BLOOD-poct (STL) BLOOD Specimen Type: BLOOD Comment: Test Performed by: [id number] Meter #: [id number] Ordering Provider: YONATHAN CORONEL Report Released Date/Time: Apr 19, 2024 10:50 AM Reporting Lab: [place] [address] [facility] [address] Performing Lab: [address] [address] GLUCOSE,BLOOD-poct (L) 226 mg/dL H 72-99 Apr 08, 2024 03:28 PM [facility] PT/INR NEW (STL-MA) PLASMA Specimen Type: PLAS MA Comment: ~For Test: BASIC METABOLIC PANEL ~pre-op Ordering Provider: NOAH SANCHEZ Report Released Date/Time: Apr 02, 2024 12:39 PM Reporting Lab: [place] [address] [facility] [address] Performing Lab: [address] [address] PROTIME 12.5 s 9.4-12.5 INR VALUE 1.1 {INR} Apr 08, 2024 03:28 PM [facility] BASIC METABOLIC PANEL PLASMA Specimen Type: PL ASMA Comment: ~For Test: BASIC METABOLIC PANEL ~pre-op Ordering Provider: NOAH SANCHEZ Report Released Date/Time: Apr 02, 2024 12:39 PM Reporting Lab: [address] [address] Performing Lab: [address] [address] CREATININE 1.59 mg/dL H 0.7-1.3 UREA NITROGEN 13.7 mg/dL 9.0-25.0 GLUCOSE 234 mg/dL H 72-99 SODIUM 139 meq/L 136-145 POTASSIUM 4.3 meq/L 3.5-5 CHLORIDE 104 meq/L 98-107 CARBON DIOXIDE 22 meq/L 22-31 CALCIUM 9.6 mg/dL 8.4-10.4 EGFR (CKD-EPI 2020) 50.6 >60 Apr 08, 2024 03:28 PM [facility] CBC BLOOD Specimen Type: BLOOD Comment: ~For Test: BASIC METABOLIC PANEL ~pre-op Ordering Provider: NOAH SANCHEZ Report Released Date/Time: Apr 02, 2024 12:39 PM Reporting Lab: [address] [address] Performing Lab: [address] [address] WBC 7.3 10*3/uL 3.6-11.2 RBC 5.23 10*6/uL [...] Source Apr 19, 2024 11:47 PM 9 [facility] Apr 19, 2024 08:37 PM 97.7 74 162/99 20 96 9 [facility] Apr 19, 2024 07:57 PM 4 [facility] Apr 19, 2024 06:32 PM 97.3 71 172/83 18 94 7 282.4 38 [facility] Apr 19, 2024 06:18 PM 6 [facility] Social History: Smoking Status (Most current) and Tobacco Use (All prior to encounter date) This section includes the most current, and the historical, smoking and tobacco- related health factors from the [place] facility where the Encounter took place. Current Smoking Status This section includes the most current smoking, or tobacco-related health factor, from the [place] facility where the Encounter took place. Date/Time Current Smoking Status Comment Facility May 26, 2000 01:36 PM CURRENT NON-TOBACC O USER-HX OF USE stop smoking 10yrs ago,started smoking at 14yrs,smoked 2packs a day [facility] Tobacco Use History This section includes a history of the smoking, or tobacco-related health factors, that were collected on or before the date of the Encounter. The data comes from the [place] facility where the Encounter took place. Date/Time Smoking Status/Tobacco Use Comment F acility Mar 07, 2000 12:35 PM CURRENT NON-TOBACC O USER-HX OF USE [facility] Advance Directives: All historical and current Section Date Range: From patient's date of to the date document was created. This section includes ALL of a patient's completed or amended [place] Advance and Rescinded Directives. The entries below indicate that a directive exists for the patient, but an actual copy is not included with this document. The data comes from all [facility]. Date Advance Directives Provider Source Oct 21, 2022 FRANKLIN KO [facility] Sep 23, 2004 ADVANCE DIRECTIVE CJ RUDOLPH [facility] May 24, 2004 ADVANCE DIRECTIVE MITCH ZEE IS [facility] May 24, 2000 ADVANCE DIRECTIVE MICHELE CENTENO IS [facility] Nov 11, 1996 ADVANCE DIRECTIVE MAGGIE DRAKE [facility] December 08, 1995 ADVANCE DIRECTIVE KI SANTOYO [facility] Radiology Reports: +/- 30 days of [...] the Encounter. The data comes from all [place] treatment [facility]. Date/Time Radiology Report Provider Source Apr 08, 2024 03:15 PM CHEST X-RAY, 2 VIE WS: SAMINABETTY LETICIA [id number] -1970 M Exm Date: APR 08, 2024@15:15 Req Phys: NOAH SANCHEZ Pat Loc: [place]-PRE-OP EVAL NURSING AM (Req Img Loc: [place]-MAIN RADIOLOGY SUITE Service: [facility], [facility] [address] [place] [address] (Case [id number] COMPLETE) CHEST X-RAY, 2 VIEWS (RAD Detailed) CPT:94993 Reason for Study: pre-op Clinical History: Report Status: Verified Date Reported: APR 08, 2024 Date Verified: APR 08, 2024 [facility] E-Sig:/ES/Franklin Hartley MD. FACR. Report: History: pre-op. Comparison: Prior chest examination-03/24/2023. Technique: PA and lateral views. Findings: No pulmonary consolidation, pleural effusion, pneumothorax, cardiomegaly or pulmonary edema is seen. Impression: No acute cardiopulmonary disease is seen. Primary Interpreting Staff: Franklin Hartley MD. FACR, Neuroradiologist ([facility]) /FRANKLIN KENDALL [facility] Pathology Reports: +/- 30 days of [...] the Encounter. The data comes from all [place] treatment [facility]. Date/Time Pathology Report Provider Source Apr 23, [...] Performing Laboratory: Surgical Pathology Report Performed By: [facility] [address]# [id number] [address] [address] $FTR - - - - - - - - - - - - - - - - - - - - - - - - - - - - - - - - - - - - - - - - (End of report) CHRISTY MALCOLM MD [facility] Date Apr 23, 2024 - - - - - - - - - - - - - - - - - - - - - - - - - - - - - - - - - - - - - - - - BETTY HAAS STANDARD FORM 515 ID:[id number] SEX:M :1970 AGE: 54 LOC:APFEE PCP: Yonathan Coronel NP /los/ CHRISTY MALCOLM Pathologist Signed: 04/23/2024 14:03 CHRISTY MALCOLM [facility] Apr 08, 2024 03:00 PM LR MICROBIOLOGY RE PORT: Accession [UID]: [id number] [[id number]] Received: Apr 08, 2024@15:27 Collection sample: URINE,CLEAN CATCH Collection date: Apr 08, 2024 15:00 Site/Specimen: URINE Provider: NOAH SANCHEZ Test(s) ordered: C&S URINE.................... . completed: Apr 09, 2024 22:40 * BACTERIOLOGY FINAL REPORT => Apr 09, 2024 22:47 TECH CODE: [id number] CULTURE RESULTS: STREP. AGALACTIAE, GRP. B - Quantity: >25,000 - <50,000 CFU/ML Comment: There will be no work up. Bacteriology Remark(s): -- RYAN 04/09/24 -- >25,000 - <50,000 CFU/ML S. AGAL - There will be no work up. <10,000 CFU/ML MIXED GRAM POSITIVE ORGANISM There will be no work up. =--=--=--=--=--=--=--=--= --=--=--=--=--=--=--=--=- -=--=--=--=--=--=--=--=-- =-- Performing Laboratory: Bacteriology Report Performed By: [facility] CLIA# [id number] [facility] [address] [place] [address] LUANA CINTRON [facility] Encounter Notes: All associated encounter notes This section contains the clinical notes associated to the Encounter. Date/Time Encounter Note(s) Provider Source Apr 19, 2024 08:04 PM ANESTHESIOLOGY POS T OPERATIVE E & M NOTE: LOCAL TITLE: ANESTHESIA POST-OP STL STANDARD TITLE: ANESTHESIOLOGY POST OPERATIVE E & M NOTE DATE OF NOTE: APR 19, 2024@20:04 ENTRY DATE: APR 19, 2024@20:04:24 AUTHOR: VANNESSA CURRIE EXP COSIGNER: URGENCY: STATUS: COMPLETED Post-Anesthesia Note No complications noted from anesthetic at time of this note. 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 No changes in clinical condition and physical assessment from Mar note. Vitals: Age: 54 Weight: 275.7 lb [125.06 kg] (04/08/2024 13:48) Height: 72 in [182.9 cm] (04/08/2024 13:48) Blood Pressure: 144/74 (04/08/2024 13:48) Pulse: 79 (04/08/2024 13:48) Temp: 99.3 F [37.4 C] (04/08/2024 13:48) Resp: 20 (04/08/2024 13:48) Pulse Oximetry: 96% (04/08/2024 13:48) Most Recent Labs/CXR/EKG Results: HGB 16.6 g/dL 04/08/2024 15:28 HCT: 47.8 % (04/08/24 15:28) PLT: PLT 164 10*3/uL 04/08/2024 15:28 WBC: 7.3 10*3/uL (04/08/24 15:28) PT: 12.5 sec (04/08/24 15:28) PTT: No PTT EO data found INR: INR VALUE 1.1 INR 04/08/2024 15:28 PROTIME 12.5 sec 04/08/2024 15:28 Chem 7: SODIUM 139 mEq/L 04/08/2024 15:28 POTASSIUM 4.3 mEq/L 04/08/2024 15:28 CHLORIDE 104 mEq/L 04/08/2024 15:28 UREA NITROGEN 13.7 mg/dL 04/08/2024 15:28 CREATININE 1.59 H mg/dL 04/08/2024 15:28 CALCIUM 9.6 mg/dL 04/08/2024 15:28 CARBON DIOXIDE 22 mEq/L 04/08/2024 15:28 GLUCOSE 234 H mg/dL 04/08/2024 15:28 EGFR (CKD-EPI 2020) 50.6 04/08/2024 15:28 ALBUMIN 4.1 g/dL 02/23/2024 11:19 HGA1C 6.8 H % 12/14/2023 11:57 CXR: Impression for CHEST X-RAY, 2 VIEWS, 04/08/24, case [id number] No acute cardiopulmonary disease is seen. EKG: Normal sinus rhythm Right bundle branch block Abnormal ECG When compared with ECG of 25-NOV-2022 09:48, Left posterior fascicular block is no longer Present Pt. on Pregabalin PFTs shows restricitive diseases. Uses Oxygen when he needs - more of a puffer(boost). Pre-Operative Diagnosis: Erectile Dysfunction Operation proposed: Implantable Penile Prothesis Placement Will proceed with procedure ASA: 3. A patient with severe systemic disease. Anesthetic plan: General Premedications: Planned anesthetic technique and options were discussed with the patient or guardian: NPO greater than 8 hours: Yes Medications given/taken today: Other findings: /los/ ANJALI CANDELARIA MD Staff Anesthesiolgist Signed: 04/19/2024 12:16 Receipt Acknowledged By: 04/19/2024 12:30 /los/ REINIER MORENO CRNA TRAFFIC OFFICER, Anesthesiology ANJALI CANDELARIA [facility]
--- OUTSIDE RECORDS SUMMARY | 2024-11-30 15:25 | XMS_ITS | Encounter Summary ---
Author Name [facility] [place] Organization [facility] [place] [facility] [place] Address [address] [place] [address] Care Team Providers Care Blood Bank Assistant Name Role Phone YONATHAN LINDSAY Primary Care Provider OMEGA Bethea Unavailable Unavailable Selected Encounter This section includes the information on record at [place] for the Encounter. Date/Time Encounter Type Encounter Description Reason Pro vider Source Feb 24, 2024 11:02 AM Outpatient Encounter COMMUNITY CARE CONSULT IHE Encounter Template Text not used by [place] Plan of Treatment: Future Appointments (+ 6 [...] 26, 2024 03:00 PM [facility] Mar 05, 2024 03:00 PM AMBULATORY - PSYCHIATRY [facility] Mar 08, 2024 01:00 PM AMBULATORY - PSYCHIATRY [facility] Mar 26, 2024 03:00 PM AMBULATORY - PSYCHIATRY [facility] Apr 03, 2024 11:00 AM AMBULATORY - MEDICINE [facility] Apr 08, 2024 02:00 PM AMBULATORY - SURGERY [facility] Apr 09, 2024 01:00 PM AMBULATORY - NONE [facility] Apr 19, 2024 10:00 AM AMBULATORY - NONE [facility] Apr 23, 2024 03:00 PM AMBULATORY - MEDICINE [facility] Apr 29, 2024 01:00 PM AMBULATORY - NONE [facility] Apr 30, 2024 03:00 PM AMBULATORY - PSYCHIATRY [facility] May 03, 2024 10:30 AM AMBULATORY - SURGERY [facility] May 21, 2024 01:00 PM AMBULATORY - PSYCHIATRY [facility] May 31, 2024 10:30 AM AMBULATORY - SURGERY [facility] Jun 05, 2024 09:30 AM AMBULATORY - NONE [facility] Jun 14, 2024 11:00 AM AMBULATORY - SURGERY [facility] Jun 17, 2024 03:00 PM AMBULATORY - MEDICINE [facility] Jun 25, 2024 03:00 PM AMBULATORY - PSYCHIATRY [facility] Jul 01, 2024 10:30 AM AMBULATORY - NONE [facility] Jul 08, 2024 10:30 AM AMBULATORY - REHAB MEDICIN [facility] Lab Results: +/- 30 days of the [...] Type Comment Feb 23, 2024 11:19 AM [facility] CONJ. BILIRUBIN PLASMA Specimen Type: PLASMA Comment: LDL Unable to be calculated LDL calculation invalid when Triglyceride exceeds 250 mg/dl Ordering Provider: NIKA SANCHEZ Report Released Date/Time: Feb 23, 2024 10:51 AM Reporting Lab: [place] [id number] [facility] [address] Performing Lab: [facility] [address] [address] CONJ. BILIRUBIN 0.2 mg/dL 0-0.5 Feb 23, 2024 11:19 AM [facility] PT/INR NEW (STL-MA) PLASMA Specimen Type: PLAS MA No comment entered. Ordering Provider: NIKA SANCHEZ Report Released Date/Time: Feb 23, 2024 10:51 AM Reporting Lab: [facility] [address] [place] [id number] Performing Lab: [address] [address] PROTIME 12.2 s 9.4-12.5 INR VALUE 1.1 {INR} Feb 23, 2024 11:19 AM [facility] LIPID PANEL (STL) PLASMA Specimen Type: PLASM A Comment: LDL Unable to be calculated LDL calculation invalid when Triglyceride exceeds 250 mg/dl Ordering Provider: NIKA SANCHEZ Report Released Date/Time: Feb 23, 2024 10:51 AM Reporting Lab: [address] [address] Performing Lab: [address] [address] CHOLESTEROL 153 mg/dL 0-200 TRIGLYCERIDE 373 mg/dL H 0-150 DIRECT LDL 64 mg/dL L >100 CALCULATED LDL comment mg/dL HDL(New) 37 mg/dL L >40 Feb 23, 2024 11:19 AM [facility] COMPREHENSIVE METABOLIC PANEL PLASMA Specimen Type: PLASMA Comment: LDL Unable to be calculated LDL calculation invalid when Triglyceride exceeds 250 mg/dl Ordering Provider: NIKA SANCHEZ Report Released Date/Time: Feb 23, 2024 10:51 AM Reporting Lab: [address] [address] Performing Lab: [address] [address] CREATININE 0.85 mg/dL 0.7-1.3 UREA NITROGEN 14.4 [...] 102.6 >60 Feb 23, 2024 11:19 AM [facility] CBC BLOOD Specimen Type: BLOOD No comment entered. Ordering Provider: NIKA SANCHEZ Report Released Date/Time: Feb 23, 2024 10:51 AM Reporting Lab: [place] [address] [facility] [address] Performing Lab: [facility] [address] [facility] [address] WBC 7.1 10*3/uL 3.6-11.2 RBC 5.10 10*6/uL [...] 0.60 BASOPHILS, ABSOLUTE 0.02 10*3/uL 0.00-0. 20 Social History: Smoking Status [...] ago,started smoking at 14yrs,smoked 2packs a day [facility] Tobacco Use History This section includes a history of the smoking, or tobacco-related health factors, that were collected on or before the date of the Encounter. The data comes from the [place] facility where the Encounter took place. Date/Time Smoking Status/Tobacco Use Comment F acility Mar 07, 2000 12:35 PM CURRENT NON-TOBACC O USER-HX OF USE [facility] Advance Directives: All historical and current Section Date Range: From patient's date of to the date document was created. This section includes ALL of a patient's completed or amended [place] Advance and Rescinded Directives. The entries below indicate that a directive exists for the patient, but an actual copy is not included with this document. The data comes from all [place] facilities. Date Advance Directives Provider Source Oct 21, 2022 [facility] KO [facility] Sep 23, 2004 ADVANCE DIRECTIVE CJ RUDOLPH [facility] May 24, 2004 ADVANCE DIRECTIVE MITCH ZEE TREVA [facility] May 24, 2000 ADVANCE DIRECTIVE MICHELE CENTENO [facility] Nov 11, 1996 ADVANCE DIRECTIVE MAGGIE DRAKE [facility] December 08, 1995 ADVANCE DIRECTIVE KI SANTOYO [facility] Encounter Notes: All associated encounter notes This section contains the clinical notes associated to the Encounter. Date/Time Encounter Note(s) Provider Source Feb 26, 2024 06:43 AM ADDENDUM: LOCAL TITLE: Addendum STANDARD TITLE: ADDENDUM DATE OF NOTE: FEB 26, 2024@06:43:51 ENTRY DATE: FEB 26, 2024@06:43:54 AUTHOR: KONSTANTIN BEGUM EXP COSIGNER: URGENCY: STATUS: COMPLETED [facility] DENTAL SERVICE/COMMUNITY CARE RFS DETERMINATION The requested treatment: AUTHORIZED SUBMITTED. AUTHORIZED TREATMENT: Refer to Seasonal Package Handler D0180 Comprehensive Periodontal Eval-New or Established ACTION STEPS * RFS/ADA Dental Claim Form external records reviewed. * New consult(s) placed with corresponding SEOC(s). * [place] to continue dental treatment with community provider. AUTHORIZED PROVIDER: Referral to specialist. COMMUNITY CARE COORDINATION NOTES Please continue 's care for authorized treatment. /es/ KONSTANTIN BEGUM DMD DENTIST Signed: 02/26/2024 06:44 Receipt Acknowledged By: 03/04/2024 11:23 /es/ LOAN GAGE COMM[facility]ITY [facility]ARE RN 02/27/2024 14:14 /es/ ZULEMA LINDSAY RN, BSN Patient Care Service, Care in the Community Unit --- Original Document --- 02/24/24 COMMUNITY CARE-REQUEST FOR SERVICE NOTE STL: Request for Services (RFS) documentation has been sent for scanning to [facility] Care Consult: COMMUNITY CARE-GEN Consult No: [id number] Date sent to scanning: Jan A Request for Service ([facility]) form [id number] has been received which includes the following: Care Requested: Refer to Seasonal Package Handler D0180 Comprehensive Periodontal Eval-New or Established ICD-10 Dx code: K02.9 Date [place] received request: Jan Date service required: Jan Requesting Community Provider Information: Name of Ordering Provider: Javier Fish Office:[place] [facility] Address, [facility], State: [address] [place] [address] /es/ BESSIE FORTUNE Signed: 02/24/2024 11:06 Receipt Acknowledged By: 02/26/2024 06:43 /pamela BEGUM DMD DENTIST KONSTANTIN BEGUM [facility] Feb 24, 2024 11:02 AM NONVA NOTE: LOCAL TITLE: COMMUNITY CARE-REQUEST FOR SERVICE NOTE STL STANDARD TITLE: NONVA NOTE DATE OF NOTE: FEB 24, 2024@11:02 ENTRY DATE: FEB 24, 2024@11:02:54 AUTHOR: BESSIE FORTUNE COSIGNER: URGENCY: STATUS: COMPLETED COMMUNITY CARE-REQUEST FOR SERVICE NOTE STL Has ADDENDA Request for Services (RFS) documentation has been sent for scanning to [facility] Community Care Consult: COMMUNITY CARE-GEN Consult No: [id number] Date sent to scanning: Jan A Request for Service (RFS) form [id number] has been received which includes the following: Care Requested: Refer to Seasonal Package Handler D0180 Comprehensive Periodontal Eval-New or Established ICD-10 Dx code: K02.9 Date [place] received request: Jan Date service required: Jan Requesting Community Provider Information: Name of Ordering Provider: Javier Fish Office:[facility] Address, [facility], [facility]: [address] [place] [address] /los/ BESSIE FORTUNE Signed: 02/24/2024 11:06 Receipt Acknowledged By: 02/26/2024 06:43 /pamela BEGUM DMD DENTIST 02/26/2024 ADDENDUM STATUS: COMPLETED ST DENTAL SERVICE/COMMUNITY CARE RFS DETERMINATION The requested treatment: AUTHORIZED SUBMITTED. AUTHORIZED TREATMENT: Refer to Seasonal Package Handler D0180 Comprehensive Periodontal Eval-New or Established ACTION STEPS * RFS/ADA Dental Claim Form external records reviewed. * New consult(s) placed with corresponding SEOC(s). * [place] to continue dental treatment with community provider. AUTHORIZED PROVIDER: Referral to specialist. COMMUNITY CARE COORDINATION NOTES Please continue [place]'s care for authorized treatment. /los/ KONSTANTIN BEGUM DMD DENTIST Signed: 02/26/2024 06:44 Receipt Acknowledged By: * AWAITING SIGNATURE * LOAN GAGE * AWAITING SIGNATURE * ZULEMA LINDSAY [facility]
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
--- OUTSIDE RECORDS SUMMARY | 2024-11-30 15:25 | XMS_ITS | Encounter Summary ---
Author Name [facility] [place] [facility] [facility] [place] Address [address] [place] [address] Care Team Providers Care Rn First Assist Name Role Phone YONATHAN LINDSAY Primary Care Provider OMEGA Bethea Unavailable Unavailable Selected Encounter This section includes the information on record at [place] for the Encounter. Date/Time Encounter Type Encounter Description Reason Provider Source December 18, 2023 05:42 PM EMERGENCY DEPT VISIT [facility] EMERGENCY DEPT ICD-10-CM R21 Rash and other nonspecific skin eruption EYAD GUY Yumi Encounter Template Text not used by [place] Assessments - Encounter Diagnoses This section includes the primary and secondary diagnoses documented for the Encounter. Date/Time Primary/Secondary Diagnosis Diagnosis Name Provider Source December 18, 2023 06:42 PM PRIMARY Rash and other nonspecific skin eruption EYAD GUY [facility] Plan of Treatment: Future Appointments (+ 6 months) and Future Tests (+/- 45 days) The Plan of Treatment section includes future care activities for the patient from all [place] treatmentfacilities. This section includes future appointments and future orders which are active, pending or scheduled. Future Appointments This section includes appointments that were scheduled to occur 6 months from the date of the Encounter, up to a maximum of 20 appointments. The data comes from all [place] treatment facilities. Appointment Date/Time Appointment Type Appointme nt Facility Name December 19, 2023 01:00 PM AMBULATORY - MEDICINE [facility] December 19, 2023 03:00 PM AMBULATORY - PSYCHIATRY [facility] December 21, 2023 04:00 PM AMBULATORY - PSYCHIATRY [facility] Jan 01, 2024 07:02 PM AMBULATORY - MEDICINE [facility] Jan 11, 2024 10:15 AM AMBULATORY - MEDICINE [facility] Jan 15, 2024 11:15 AM AMBULATORY - MEDICINE [facility] Jan 15, 2024 01:00 PM AMBULATORY - NONE [facility] Jan 30, 2024 10:00 AM AMBULATORY - SURGERY . [facility] Jan 30, 2024 03:00 PM AMBULATORY - PSYCHIATRY [facility] Feb 02, 2024 02:30 PM AMBULATORY - PSYCHIATRY [facility] Feb 08, 2024 01:30 PM AMBULATORY - NONE [facility] Feb 13, 2024 10:00 AM AMBULATORY - NONE [facility] Feb 15, 2024 10:00 AM AMBULATORY - MEDICINE [facility] Feb 19, 2024 11:00 AM AMBULATORY - NONE [facility] Feb 23, 2024 10:30 AM AMBULATORY - MEDICINE [facility] Feb 26, 2024 03:00 PM AMBULATORY - MEDICINE [facility] Mar 05, 2024 03:00 PM AMBULATORY - PSYCHIATRY [facility] Mar 08, 2024 01:00 PM AMBULATORY - PSYCHIATRY [facility] Mar 26, 2024 03:00 PM AMBULATORY - PSYCHIATRY [facility] Apr 03, 2024 11:00 AM AMBULATORY - MEDICINE [facility] Active, Pending, and Scheduled Orders This section includes a listing of several types of active, pending, and scheduled orders, including clinic medications orders, diagnostic test orders, procedure orders and consult orders; where the start date of the order is 45 days before the date of the Encounter or 45 days after the date of theEncounter. The data comes from all [place] treatment facilities. Test Date/Time Test Type Test Details Facility Name Nov 28, 2023 12:00 AM Laboratory - Chemistry Order AMMONIA (STL-MA) WHITE CAP EDTA PLASMA SP [facility] December 19, 2023 12:00 AM Laboratory - Chemistry Order ALPHA-1 ANTITRYPSIN (STL) GREEN LI/HEP BLD/PLAS PLASMA SP [facility] December 19, 2023 12:00 AM Laboratory - Chemistry Order ANTI-MITOCHONDRIAL AB (STL) GOLD/RED SST SERUM SP [facility] December 19, 2023 12:00 AM Laboratory - Chemistry Order ACTIN (SMOOTHMUSCLE) ANTIBODY IGG GOLD/RED SST SERUM SP [facility] December 19, 2023 12:00 AM Laboratory - Chemistry Order CERULOPLASMIN (L-PB) GOLD/RED SST SERUM SP [facility] Lab Results: +/- 30 days of the [...] Unit Interpretation Reference Range Specimen Type Comment December 14, 2023 11:58 AM [facility] B12 SERUM Specimen Type: SERUM No comment entered. Ordering Provider: SHELIA MOREIRA Report Released Date/Time: Nov 28, 2023 11:26 AM Reporting Lab: [facility] [address] [facility] [address] Performing Lab: [address] [address] B12 423 pg/mL 213-816 December 14, 2023 11:58 AM [facility] COMPREHENSIVE METABOLIC PANEL PLASMA Specimen Type: PLASMA Comment: No hemolysis noted. Ordering Provider: SHELIA MOREIRA Report Released Date/Time: Nov 28, 2023 11:26 AM Reporting Lab: [facility] [address] [facility] [address] Performing Lab: [facility] [address] [facility] [address] CREATININE 0.90 mg/dL 0.7-1.3 UREA NITROGEN 12.9 mg/dL 9.0-25.0 GLUCOSE 184 mg/dL H 72-99 SODIUM 139 meq/L 136-145 POTASSIUM 4.4 meq/L 3.5-5 CHLORIDE 105 meq/L 98-107 CARBON DIOXIDE 25 meq/L 22-31 CALCIUM 9.3 mg/dL 8.4-10.4 PROTEIN 7.7 g/dL 6-8.6 ALBUMIN 4.2 g/dL 3.4-5 TOTAL BILIRUBIN 0.5 mg/dL 0.2-1.2 ALKALINE PHOSPHATASE 130 U/L 40-150 AST/SGOT 32 U/L 5-34 ALT/SGPT 44 U/L H 8-40 EGFR (CKD-EPI 2020) 100.9 >60 December 14, 2023 11:58 AM [facility] CBC BLOOD Specimen Type: BLOOD No comment entered. Ordering Provider: SHELIA MOREIRA Report Released Date/Time: Nov 28, 2023 11:26 AM Reporting Lab: [facility] [address] [facility] [address] Performing Lab: [facility] [address] [facility] [address] WBC 5.9 10*3/uL 3.6-11.2 RBC 5.18 10*6/uL 4.10-5.70 HGB 16.2 g/dL 13.1-16.8 HCT 47.3 38.2-48.4 MCV 91.3 fL 80.0-100.0 MCH 31.3 pg 27.0-34.0 MCHC 34.2 g/dL 33.0-36.0 PLT 158 10*3/uL 150-400 MPV 10.4 fL 7.5-11.2 RDW 12.5 11.8-15.1 LYMPHOCYTES, AUTO % 25 MONOCYTES, AUTO % 5 NEUTROPHILS, AUTO % 68 EOSINOPHILS, AUTO % 2 BASOPHILS, AUTO % 1 LYMPHOCYTES, ABSOLUTE 1.48 10*3/uL 0.77- 4.50 MONOCYTES, ABSOLUTE 0.29 10*3/uL 0.19-0. 80 NEUTROPHILS, ABSOLUTE 4.00 10*3/uL 2.10- 8.00 EOSINOPHILS, ABSOLUTE 0.10 10*3/uL 0.00- 0.60 BASOPHILS, ABSOLUTE 0.03 10*3/uL 0.00-0. 20 December 14, 2023 11:57 AM [facility] HGA1C BLOOD Specimen Type: BLOOD No comment entered. Ordering Provider: RAKEL TORRES Report Released Date/Time: December 14, 2023 11:26 AM Reporting Lab: [facility] [address] [facility] [address] Performing Lab: [address] [address] HGA1C 6.8 H 4.0-6.0 December 14, 2023 11:57 AM [facility] VITAMIN D, 25-HYDROXY SERUM Specimen Type: SE RUM No comment entered. Ordering Provider: RAKEL OTRRES Report Released Date/Time: December 14, 2023 11:35 AM Reporting Lab: [place] [address] [facility] [address] Performing Lab: [address] [address] VITAMIN D, 25-HYDROXY 44.3 ng/mL 30-96 Vital Signs: All taken on the encounter date This section contains inpatient and outpatient Vital Signs collected on the date of the Encounter. Date/Time Temperature Pulse Blood Pressure Respiratory Rate SP02 Pain Height Weight Body Mass Index Source December 18, 2023 05:45 PM 98 82 150/80 18 1 [facility] Social History: Smoking Status (Most current) and Tobacco Use (All prior to encounter date) This section includes the most current, and the historical, smoking and tobacco- related health factors from the [facility] where the Encounter took place. Current Smoking Status This section includes the most current smoking, or tobacco-related health factor, from the [facility] where the Encounter took place. Date/Time Current Smoking Status Comment Facility May 26, 2000 01:36 PM CURRENT NON-TOBACC O USER-HX OF USE stop smoking 10yrs ago,started smoking at 14yrs,smoked 2packs a day [facility] Tobacco Use History This section includes a history of the smoking, or tobacco-related health factors, that were collected on or before the date of the Encounter. The data comes from the [facility] where the Encounter took place. Date/Time Smoking Status/Tobacco Use Comment F acility Mar 07, 2000 12:35 PM CURRENT NON-TOBACC O USER-HX OF USE [facility] Advance Directives: All historical and current Section Date Range: From patient's date of to the date document was created. This section includes ALL of a patient's completed or amended [place] Advance and Rescinded Directives. The entries below indicate that a directive exists for the patient, but an actual copy is not included with this document. The data comes from all [place] facilities. Date Advance Directives Provider Source Oct 21, 2022 FRANKLIN KO [facility] Sep 23, 2004 ADVANCE DIRECTIVE CJ RUDOLPH [facility] May 24, 2004 ADVANCE DIRECTIVE MITCH ZEE Kena TREVA IS [facility] May 24, 2000 ADVANCE DIRECTIVE MICHELE CENTENO Kena [facility] IS [facility] Nov 11, 1996 ADVANCE DIRECTIVE MAGGIE DRAKE [facility] December 08, 1995 ADVANCE DIRECTIVE KI SANTOYO [facility] Radiology Reports: +/- 30 days of [...] the Encounter. The data comes from all [place] treatment facilities. Date/Time Radiology Report Provider Source Jan 15, 2024 12:42 PM US ABDOMEN LIMITED W/BLOOD FLOW DOPPLER: BETTY HAAS [id number] -1970 M Exm Date: JAN 15, 2024@12:42 Req Phys: KOSTA SOTO Loc: [facility]-GI CONSULT (Req'g Loc) Img Loc: [facility]-ULTRASOUND Service: Unknown [facility], [address] [place] [address] (Case [id number] COMPLETE) US ABDOMEN LTD, SINGLE ORG OR CHRISTIN(US Detailed) CPT:68500 Reason for Study: elevated LFTs (Case [id number] COMPLETE) US BLOOD FLOW ABD/RENAL (LTD) (US Detailed) CPT:75753 Clinical History: Organ to Image: Liver Reason for exam: elevated LFTs Report Status: Verified Date Reported: JAN 15, 2024 Date Verified: JAN 15, 2024 [employer]cre[employer] Facilities Motel Manager E-Sig:/ES/DUNIA LUNA Report: CASE #: [id number], [id number] EXAMINATION: Limited sonogram of the right upper quadrant HISTORY: elevated LFTs COMPARISON: No prior study is available for comparison. FINDINGS: Liver echogenicity is increased, which may be seen with steatosis. No focal solid hepatic lesions are seen within this limitation. No intrahepatic bile duct dilatation is seen. The gallbladder is normal in size. No gallbladder calculus, wall thickening, or pericholecystic fluid is seen. The common bile duct is normal, measuring 5 mm in diameter. Pancreas is nonvisualized due to overlying bowel gas.. Limited views of the right kidney. The visible hepatic veins and portal vein are patent with appropriate flow direction. Main portal vein flow velocity is low normal measuring 17 cm/s. Impression: 1. Hepatic steatosis. 2. No evidence of cholelithiasis or cholecystitis. Report dictated by Lucien Ruiz (vice president fixed income) I, Dunia Luna, have reviewed the images and report and concur with these findings. Primary Interpreting Staff: DUNIA LUNA MD (Recreational Facilities Motel Manager) Primary Interpreting Resident: LUCIEN RUIZ MD /DUNIA MARTINES [facility] Jan 01, 2024 07:18 PM ANKLE,RIGHT, 3 VIEWS: BETTY HAAS [id number] -1970 M Exm Date: JAN 01, 2024@19:18 Req Phys: MONICA JULES Loc: [facility]-EMERGENCY LANDSCAPING CREW LEADER (Req'g Img Loc: [facility]-MAIN RADIOLOGY SUITE Service: [address] [address] (Case [id number] COMPLETE) ANKLE,RIGHT, 3 VIEWS (RAD Detailed) CPT:68667 Proc Modifiers : RIGHT Reason for Study: Clinical History: Right anterior aspect just proximal of mid-point Report Status: Verified Date Reported: JAN 01, 2024 Date Verified: JAN 01, 2024 Recreational Facilities Motel Manager E-Sig: Report: KNEE,RIGHT,1 OR 2 VIEWS, TIBIA & FIBULA,RIGHT, 2 VIEWS, ANKLE,RIGHT, 3 VIEWS HISTORY: Right lower leg. Right anterior aspect just proximal of mid-point COMPARISON: Right knee radiograph 06/04/2018 TECHNIQUE: 2 views of the right knee, 4 views of the right tibia/fibula, and 3 views of the right ankle, submitted to the [place] National Teleradiology Program (NTP) for interpretation. FINDINGS: No displaced fracture. Normal alignment. Mild tricompartmental knee joint space loss, most pronounced in the medial joint compartment. No significant knee effusion. Prominent enthesophyte formation at the Achilles tendon insertion and plantar calcaneal spurring. The ankle mortise is symmetric. Degenerative changes of the midfoot with scattered osteophyte formation. Possible trace ankle joint effusion. No radiopaque foreign body. Impression: No acute fracture or dislocation in the visualized portion of the right lower extremity. Mild/moderate degenerative changes of the knee and ankle. READING PHYSICIAN: Rogelio Alford MD -[id number] 01/01/2024 18:34 PDT [facility] National Teleradiology Program [phone] (For Medical Practitioner Use Only) Attention Patients / Veterans: If you have questions or concerns about these test results, please contact your ordering provider or primary care team. Primary Interpreting Staff: RADIOLOGY,OUTSIDE SERVICE, Staff Physician / RADIOLOGY,OUTSIDE SERVICE [facility] Jan 01, 2024 07:18 PM TIBIA & FIBULA,RIGHT, 2 VIEWS: BETTY HAAS [id number] -1970 M Ex Date: JAN 01, 2024@19:18 Req Phys: MONICA JULES Loc: [facility]-EMERGENCY LANDSCAPING CREW LEADER (Req'g Img Loc: [facility]MAIN RADIOLOGY SUITE Service: Unknown [facility], [facility] [address] [place] [address] (Case [id number] COMPLETE) TIBIA & FIBULA,RIGHT, 2 VIEWS (RAD Detailed) CPT:77467 Proc Modifiers : RIGHT Reason for Study: Right lower leg Clinical History: Right anterior aspect just proximal of mid-point Report Status: Verified Date Reported: JAN 01, 2024 Date Verified: JAN 01, 2024 Recreational Facilities Motel Manager E-Sig: Report: KNEE,RIGHT,1 OR 2 VIEWS, TIBIA & FIBULA,RIGHT, 2 VIEWS, ANKLE,RIGHT, 3 VIEWS HISTORY: Right lower leg. Right anterior aspect just proximal of mid-point COMPARISON: Right knee radiograph 06/04/2018 TECHNIQUE: 2 views of the right knee, 4 views of the right tibia/fibula, and 3 views of the right ankle, submitted to the [place] National Teleradiology Program (NTP) for interpretation. FINDINGS: No displaced fracture. Normal alignment. Mild tricompartmental knee joint space loss, most pronounced in the medial joint compartment. No significant knee effusion. Prominent enthesophyte formation at the Achilles tendon insertion and plantar calcaneal spurring. The ankle mortise is symmetric. Degenerative changes of the midfoot with scattered osteophyte formation. Possible trace ankle joint effusion. No radiopaque foreign body. Impression: No acute fracture or dislocation in the visualized portion of the right lower extremity. Mild/moderate degenerative changes of the knee and ankle. READING PHYSICIAN: Rogelio Alford MD -[id number] 01/01/2024 18:34 PDT [facility] National Teleradiology Program [phone] (For Medical Practitioner Use Only) Attention Patients / Veterans: If you have questions or concerns about these test results, please contact your ordering provider or primary care team. Primary Interpreting Staff: RADIOLOGY,OUTSIDE SERVICE, Staff Physician / RADIOLOGY,OUTSIDE SERVICE [facility] Jan 01, 2024 07:18 PM KNEE,RIGHT,1 OR 2 VIEWS: BETTY HAAS [id number] -1970 M Exm Date: JAN 01, 2024@19:18 Req Phys: MONICA JULES Loc: [facility]-EMERGENCY LANDSCAPING CREW LEADER (Req'g Img Loc: [facility]-MAIN RADIOLOGY SUITE Service: Unknown [facility], [facility] [address] [place] [address] (Case [id number] COMPLETE) KNEE,RIGHT,1 OR 2 VIEWS (RAD Detailed) CPT:08012 Proc Modifiers : RIGHT, LATERAL Reason for Study: right lower leg Clinical History: Right anterior aspect just proximal of mid-point Report Status: Verified Date Reported: JAN 01, 2024 Date Verified: JAN 01, 2024 Recreational Facilities Motel Manager E-Sig: Report: KNEE,RIGHT,1 OR 2 VIEWS, TIBIA & FIBULA,RIGHT, 2 VIEWS, ANKLE,RIGHT, 3 VIEWS HISTORY: Right lower leg. Right anterior aspect just proximal of mid-point COMPARISON: Right knee radiograph 06/04/2018 TECHNIQUE: 2 views of the right knee, 4 views of the right tibia/fibula, and 3 views of the right ankle, submitted to the [place] National Teleradiology Program (NTP) for interpretation. FINDINGS: No displaced fracture. Normal alignment. Mild tricompartmental knee joint space loss, most pronounced in the medial joint compartment. No significant knee effusion. Prominent enthesophyte formation at the Achilles tendon insertion and plantar calcaneal spurring. The ankle mortise is symmetric. Degenerative changes of the midfoot with scattered osteophyte formation. Possible trace ankle joint effusion. No radiopaque foreign body. Impression: No acute fracture or dislocation in the visualized portion of the right lower extremity. Mild/moderate degenerative changes of the knee and ankle. READING PHYSICIAN: Rogelio Alford MD -[id number] 01/01/2024 18:34 PDT [facility] National Teleradiology Program [phone] (For Medical Practitioner Use Only) Attention Patients / Veterans: If you have questions or concerns about these test results, please contact your ordering provider or primary care team. Primary Interpreting Staff: RADIOLOGY,OUTSIDE SERVICE, Staff Physician / RADIOLOGY,OUTSIDE SERVICE [facility] Encounter Notes: All associated encounter notes This section contains the clinical notes associated to the Encounter. Date/Time Encounter Note(s) Provider Source December 18, 2023 06:31 PM EMERGENCY DEPT DIS CHARGE NOTE: LOCAL TITLE: DISCHARGE INSTRUCTIONS EMERGENCY DEPT STL STANDARD TITLE: EMERGENCY DEPT DISCHARGE NOTE DATE OF NOTE: DECEMBER 18, 2023@18:31:22 ENTRY DATE: DECEMBER 18, 2023@18:31:22 AUTHOR: EYAD GUY EXP COSIGNER: URGENCY: STATUS: COMPLETED DISCHARGE INSTRUCTIONS IMPORTANT: We examined and treated you today on an emergency basis only. This was not a substitute for, or an effort to provide, complete medical care. In most cases, you must let your healthcare provider check you again. Tell your healthcare provider about any new or lasting problems. We cannot recognize and treat all injuries or illnesses in one Emergency Department visit. You were treated today by MD Carmen. YOU ARE THE MOST IMPORTANT FACTOR IN YOUR RECOVERY. Follow the provided instructions carefully. CONTACT INFORMATION: -Hospital Information: [facility] - [address] [facility]. [phone] -CRISIS Line: If you are having thoughts of harming yourself or thoughts of suicide immediately call the [place] Crisis line at [phone] -Nurse Line: If you have any questions regarding your health or symptoms please contact the nurse line at [phone] -General Help: Any questions or concerns, call [place] Clinical Contact Center - [phone]. Ask to speak to a doctor Monday thru Monday 8a-4:30p - VISIT NOTES: If you had special tests, such as EKG's or X-rays, we will review them again within 24 hours. We will call you if there are any new suggestions. - FOLLOW APPOINTMENT INFORMATION: It is important that you keep your scheduled appointments. If you have questions, or if you need to Make, Change or Cancel an Appointment or relay a message to your Primary Care or Specialty Care Provider please call [phone]. If you are not already established with a [place] primary caregiver assisted living, an administrative request has been placed to offer that to you. You will recieve a notification for follow-up to be connected with a health care provider. Future Appointments Future Appointments List not available MEDICATION INFORMATION: Take your medicines as prescribed. If you do not understand any of your medicines, please ask questions. If you think you may not be able to picked edge sewing machine operator your medicine, please let us know so we can look at other options. -Your medication list includes any medications that were recently prescribed but not filled by the Pharmacy (PENDING Medicines). -Included are any known ACTIVE Medicines. Please review this list to make sure it is accurate, if this list does not match the current medications you are taking please follow-up with your Primary Care Team to have your Medication List reviewed. Medicines Medication List not available - This Information Is About Your Illness and Diagnosis - CONTACT DERMATITIS (Skin Allergy) Contact dermatitis is inflamed skin. Many manmade and natural substances can cause this reaction. The substances need to come in contact with the skin and may either cause irritation or an allergic reaction. Irritation occurs when a substance damages your skin's outermost layer. Symptoms include patches of redness, dryness, and itchiness. Common irritants are soaps, detergents, and cleaning products. Skin allergic reactions occur if you come in contact with something your body senses as dangerous ( allergen ). Your body's immune system reacts to the allergen, giving you symptoms such as a rash, itching, bumps, or blisters. Allergens may include perfumes, dyes, natural rubber, makeup, metals, and the oils of plants like poison keshawn, poison oak, or poison sumac. Immediate treatment includes relieving your symptoms. Long-term treatment involves identifying and avoiding the substance causing your contact dermatitis. It may take 2 to 4 weeks for your skin reaction to completely go away. Please follow these instructions: -To relieve the itching, apply a cool, wet dressing (such as a clean washcloth or towel) to your rash. -Your healthcare provider may have prescribed some medicines to control the itching. Use these exactly as prescribed. -Try to not to scratch the affected area. Scratching can cause an infection. Trim your nails or wear white cotton gloves when you sleep. -Keep track of any new chemicals you come in contact with, in case you react to them. -To prevent future reactions: -Try to identify the substance that caused your reaction, then avoid this substance. -Use mild, fragrant-free soaps and detergents. -If you come in contact with an irritating substance, wash the affected area of skin with soap and water. -Wear protective gloves while doing family practice md, such as cleaning and washing dishes. -Use a moisturizer and/or a barrier cream. These will help protect your skin's outermost layer. Contact your healthcare provider as soon as possible if you have: -increased redness, pain, swelling, or pus. -chills or fever. -any new problems or concerns. - Contact your health care provider as soon as possible if you have: -Concerns for an emergency medical condition -Uncontrolled pain or other life-threatening symptoms -Any worries or concerns -Other: END OF INSTRUCTIONS /es/ EYAD UGY MD EMERGENCY MEDICINE Signed: 12/18/2023 18:31 EYAD GUY [facility] December 18, 2023 06:22 PM PHYSICIAN EMERGENC Y DEPT NOTE: LOCAL TITLE: EMERGENCY DEPARTMENT ST STANDARD TITLE: PHYSICIAN EMERGENCY DEPT NOTE DATE OF NOTE: DECEMBER 18, 2023@18:22 ENTRY DATE: DECEMBER 18, 2023@18:22:21 AUTHOR: EYAD GUY EXP COSIGNER: URGENCY: STATUS: COMPLETED TRIAGE CHIEF COMPLAINT: rash HPI: Patient is a 53 year old male who comes to the ED with a generalized rash that has been going on for several weeks. The rash is itchy. He is taking Cetirizine, Benadryl and was written for Triamcinolone cream but he was not able to pick it up. No f/c. No URI symptoms. No v/d. No urinary symptoms. No one else at home w similar rash or itching. No recent travel. No new meds, soaps, foods, detergents or any other obvious trigger. He feels the rash is getting worse on his trunk. No known tick bites. Rash does not involve palms/soles, mucous membranes REVIEW OF SYSTEMS: See HPI for further details. All 10 systems reviewed and otherwise negative unless otherwise detailed herein. 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 5) CPD-NALTREXONE 3MG (LOW DOSE) CAP TAKE 1 CAPSULE BY ACTIVE MOUTH ONCE A DAY 6) CYANOCOBALAMIN 100MCG TAB TAKE ONE TABLET BY MOUTH ACTIVE ONCE A DAY FOR B12 SUPPLEMENTATION 7) CYCLOBENZAPRINE HCL 10MG TAB TAKE ONE TABLET BY MOUTH ACTIVE THREE TIMES A DAY NEEDED FOR MUSCLE SPASM MAY CAUSE DROWSINESS. DO NOT DRINK ALCOHOL WHILE TAKING THIS MEDICATION. 8) DEXTROSE 24GM/31GM SQUEEZE TUBE TAKE 1 TUBE BY MOUTH ACTIVE ONCE A DAY NEEDED REPEAT DOSE IF HYPOGLYCEMIA CONTINUES 15 MINUTES AFTER THE FIRST DOSE. 9) DICLOFENAC NA 1% TOP GEL APPLY 4 GM TO AFFECTED ACTIVE AREA(S) FOUR TIMES A DAY FOR PAIN/INFLAMMATION; NOT MORE THAN 16 GRAMS DAILY TO ANY LOWER EXTREMITY JOINT. NOT MORE THAN 8 GRAMS DAILY TO ANY UPPER EXTREMITY JOINT. MAX 32GM/DAY OVER ALL JOINTS. (MEASURE DOSE WITH RULER ATTACHED INSIDE BOX) 10) DOCUSATE NA 100MG CAP TAKE ONE CAPSULE BY MOUTH TWICE ACTIVE A DAY FOR SOFTENING STOOL HOLD FOR LOOSE STOOL/DIARRHEA. 11) DRESSING,POLYSKIN II 2 X 2.75IN JEFFERY#3296 USE/APPLY ACTIVE DRESSING(S) TO AFFECTED AREA(S) DIRECTED FOR USE WITH GLUCOSE SENSOR 12) EZETIMIBE 10MG TAB TAKE ONE TABLET BY MOUTH ONCE A ACTIVE DAY TO LOWER CHOLESTEROL 13) FISH OIL 1000MG (500MG DHA/EPA) CAP TAKE TWO CAPSULES ACTIVE BY MOUTH TWICE A DAY TO LOWER TRIGLYCERIDES 14) FLUTICAS 250/SALMETEROL 50 INHL DISK 60 INHALE 1 ACTIVE INHALATION BY ORAL INHALATION TWICE A DAY FOR ASTHMA (OPEN DISKUS; CLICK ONLY ONCE; MAY INHALE TWICE TO COMPLETE DOSE; CLOSE WHEN FINISHED) RINSE MOUTH AND SPIT AFTER EACH USE. 15) GLIPIZIDE 5MG TAB TAKE ONE TABLET BY MOUTH TWO TIMES ACTIVE A DAY BEFORE MEALS TAKE 30 MINUTES BEFORE EATING. 16) GLUCOSE SENSOR [employer] BREN 3 USE SENSOR EVERY ACTIVE 2 WEEKS FOR BLOOD SUGAR MONITORING CHANGE SENSOR/SITE EVERY 14 DAYS. TO REPLACE SENSOR FOR ANY REASON OR FOR TECHNICAL HELP PLEASE CALL [employer] HELP DESK: -SPECIFIC PHONE NUMBER: [phone]). 17) LIDOCAINE 2.5/PRILOCAINE 2.5% CREAM APPLY LIGHTLY TO ACTIVE AFFECTED AREA(S) TWICE DAILY NEEDED 18) LIDOCAINE 5% PATCH APPLY 1 PATCH TO SKIN SITE NIGHTLY ACTIVE NEEDED FOR PAIN. MAY USE 1-3 PATCHES. PATCHES MAY BE CUT TO FIT ONTO FEET. APPLY PATCH AND PRESS FIRMLY FOR 10-15 SECONDS. KEEP ON FOR 12 HOURS THEN REMOVE PATCH FOR 12 HOURS. 19) METFORMIN HCL 500MG 24HR SA TAB TAKE FOUR TABLETS BY ACTIVE MOUTH ONCE A DAY FOR BLOOD SUGAR CONTROL. TAKE WITH FOOD. AVOID ALCOHOL. DISCONTINUE BEFORE GETTING XRAY DYE. 20) NYSTATIN 373682 UNT/GM CREAM APPLY LIBERALLY TO ACTIVE AFFECTED AREA(S) THREE TIMES A DAY FOR FUNGAL SKIN INFECTION - TOPICAL USE ONLY. 21) POLYETHYLENE GLYCOL 3350 ORAL PWDR MIX [...] TAKE TWO TABLETS BY MOUTH AT ACTIVE (S) BEDTIME FOR DEPRESSION Active Non-VA Medications Status 1) Non-VA TRIAMCINOLONE ACETONIDE 0.025% CREAM SPARINGLY ACTIVE TO AFFECTED AREA(S) TWICE A DAY 27 Total Medications No medications found.. I have reviewed the patient's medication list with the patient and/or his/her care-child caregiver. Any medication discrepancies have been resolved. Patient will be provided with an updated list of his/her medication(s). SURGICAL HISTORY: not pertinent FAMILY HISTORY: not pertinent SOCIAL HISTORY: Social History Main Topics: Smoking status: 05/25/2016 Current Tobacco User Alcohol Use: not indorsed Negative mg/dL (09/12/23 21:20) Illicit Drug Use: not indorsed Sexual Activity: Other Topics of Concern: Child bearing age: N/A LMP: N/A possible: N/A ALLERGIES: Review of patient's allergies indicates: NIACIN, SIMVASTATIN, COREG 25MG TABLET, PRAVASTATIN, SHRIMP, ATORVASTATIN ROSUVASTATIN, LOVASTATIN, PITAVASTATIN PHYSICAL EXAM: VITAL SIGNS: 150/80 (12/18/2023 17:45)82 (12/18/2023 17:45)94% (12/14/2023 11:01)98 F [36.7 C] (12/18/2023 17:45)18 (12/18/2023 17:45)The OBJECT WEIGHT LAST 3 was NOT found...Contact IRM. MAThe OBJECT was NOT found...Contact IRM.PAIN ASSESSMENTThe OBJECT was NOT found...Contact IRM. Measurement DT PAIN 12/18/2023 17:45 1 CONSTITUTIONAL: No acute distress, Non-toxic appearance HENT: airway patent, no swelling of his lips or face, no oral lesions, no rash on the face EYES: Conj pink, sclera clear NEUROLOGIC: Alert & oriented x 3, Normal motor function, Normal gait, no ataxia, No focal deficits appreciated on cursory screening exam SKIN: Erythematous, fine maculopapular rash predominantly on his neck and trunk. To a lesser degree and involves his legs and arms. No mucous membrane involvement. No vesicles. No evidence of superimposed cellulitis LABS: RADIOLOGY: ECG IMPRESSION: ED COURSE & MEDICAL DECISION MAKING: Nursing notes, medications, vital signs, allergies and pertinent labs & imaging studies reviewed (see chart for details) with lab results reviewed with patient and family/caregivers at bedside and radiology results reviewed with patient and any family/caregivers at bedside. Stable, alert, nontoxic, nonfocal with clinically apparent several weeks of a very itchy rash without any clear triggers. No one else at home is itching. No insect bites. No tick bites. No travel. He is alert, well-appearing, denies any fever or systemic symptoms. He is already taking antihistamines with no relief. Triamcinolone has been written and I will rewrite it here as he is having difficulty getting it from [facility] but with the degree of involvement I think it may be reasonable to treat with oral steroids. He is diabetic, has a CGM and we discussed the risk/benefit of oral steroids. He would like to try steroids and will keep a close eye on his blood sugar. He has Lantus at home should he need it though recently his A1c has been so good that he stopped taking his insulin. If his blood sugar spikes with the prednisone he will stop taking it. Clinical information obtained from an independent historian. History obtained from or confirmed by: ___spouse ___parent ___guardian ___family ___friend ___EMS ___other: Discussed with radiology regarding test interpretation: I performed an independent interpretation of: ___EKG ___rhythm strip ___plain x-ray ___ultrasound ___CT scan ___MRI ___other Patient's care impacted by: ___Diabetes ___Hypertension ___Cancer ___other: Patient's care is significantly limited by social determinants of health including, but not limited to: ___inadequate housing ___low income ___alcoholism and drug addiction in family ___problems related to primary support group ___unemployment ___problems with employment ___language barrier ___lack of transportation ___psychiatric disease ___other social determinants of health: External records reviewed: ___Inpatient records ___office records ___outpatient records ___prior outpatient labs ___prior outpatient radiology ___primary care record ___outside ED record ___PMD referral ___outside ER ___urgent care referral ___other: Management of the patient was discussed with: ___Hospitalist ___consultant ___behavioral health provider ___primary care provider ___other: The following testing was considered but ultimately was not performed after discussion with the patient/family: I considered prescription management with the following but ultimately did not prescribe: ___pain medication ___antiviral ___antibiotic ___other: I considered admission/ observation but decided upon discharge due to: LEATHER STRETCHER SERVICE/TIME: MEDICATIONS GIVEN IN ED: [ ] YES [ x] NO DECISION to ADMIT / DISCHARGE TIME: 6:36 DISPOSITION CONDITION:[ x ] Improved [ ] Unchanged [ ] Deteriorated CLINICAL IMPRESSION: 1 - nonspecific rash 2 - 3 - DISCHARGE INSTRUCTIONS AND PATIENT-DIRECTED FOLLOW-UP RECOMMENDATIONS: DIET: regular ACTIVITY: ad sarah NEW MEDS: Medrol MEDICATION RECONCILIATION: CONTINUE ALL PRESCRIBED MEDICATIONS DIRECTED EXCEPT: FOLLOW-UP WITH PRIMARY MOVIE OPERATOR/SPECIALIST: routine in 1-2 weeks if not improving, sooner if worse RETURN TO EMERGENCY: if any worries or concerns ADDITIONAL SIGNATURE PCP: [x ] YES [ ] NO [ ] not listed Active Outpatient Medications (including Supplies): Active Outpatient [...] TIMES A DAY (EXTERNAL USE ONLY) 4) CHOLECALCIF 50MCG (D3-2,000UNIT) TAB TAKE TWO TABLETS ACTIVE BY MOUTH ONCE A DAY FOR VITAMIN D DEFICIENCY. 5) CPD-NALTREXONE 3MG (LOW DOSE) CAP TAKE 1 CAPSULE BY ACTIVE MOUTH ONCE A DAY 6) CYANOCOBALAMIN 100MCG TAB TAKE ONE TABLET BY MOUTH ACTIVE ONCE A DAY FOR B12 SUPPLEMENTATION 7) CYCLOBENZAPRINE HCL 10MG TAB TAKE ONE TABLET BY MOUTH ACTIVE THREE TIMES A DAY NEEDED FOR MUSCLE SPASM MAY CAUSE DROWSINESS. DO NOT DRINK ALCOHOL WHILE TAKING THIS MEDICATION. 8) DEXTROSE 24GM/31GM SQUEEZE TUBE TAKE 1 TUBE BY MOUTH ACTIVE ONCE A DAY NEEDED REPEAT DOSE IF HYPOGLYCEMIA CONTINUES 15 MINUTES AFTER THE FIRST DOSE. 9) DICLOFENAC NA 1% TOP GEL APPLY 4 GM TO AFFECTED ACTIVE AREA(S) FOUR TIMES A DAY FOR PAIN/INFLAMMATION; NOT MORE THAN 16 GRAMS DAILY TO ANY LOWER EXTREMITY JOINT. NOT MORE THAN 8 GRAMS DAILY TO ANY UPPER EXTREMITY JOINT. MAX 32GM/DAY OVER ALL JOINTS. (MEASURE DOSE WITH RULER ATTACHED INSIDE BOX) 10) DOCUSATE NA 100MG CAP TAKE ONE CAPSULE BY MOUTH TWICE ACTIVE A DAY FOR SOFTENING STOOL HOLD FOR LOOSE STOOL/DIARRHEA. 11) DRESSING,POLYSKIN II 2 X 2.75IN JEFFERY#7040 USE/APPLY ACTIVE DRESSING(S) TO AFFECTED AREA(S) DIRECTED FOR USE WITH GLUCOSE SENSOR 12) EZETIMIBE 10MG TAB TAKE ONE TABLET BY MOUTH ONCE A ACTIVE DAY TO LOWER CHOLESTEROL 13) FISH OIL 1000MG (500MG DHA/EPA) CAP TAKE TWO CAPSULES ACTIVE BY MOUTH TWICE A DAY TO LOWER TRIGLYCERIDES 14) FLUTICAS 250/SALMETEROL 50 INHL DISK 60 INHALE 1 ACTIVE INHALATION BY ORAL INHALATION TWICE A DAY FOR ASTHMA (OPEN DISKUS; CLICK ONLY ONCE; MAY INHALE TWICE TO COMPLETE DOSE; CLOSE WHEN FINISHED) RINSE MOUTH AND SPIT AFTER EACH USE. 15) GLIPIZIDE 5MG TAB TAKE ONE TABLET BY MOUTH TWO TIMES ACTIVE A DAY BEFORE MEALS TAKE 30 MINUTES BEFORE EATING. 16) GLUCOSE SENSOR [employer] BREN 3 USE SENSOR EVERY ACTIVE 2 WEEKS FOR BLOOD SUGAR MONITORING CHANGE SENSOR/SITE EVERY 14 DAYS. TO REPLACE SENSOR FOR ANY REASON OR FOR TECHNICAL HELP PLEASE CALL Outline DESK: -SPECIFIC PHONE NUMBER: [phone]). 17) LIDOCAINE 2.5/PRILOCAINE 2.5% CREAM APPLY LIGHTLY TO ACTIVE AFFECTED AREA(S) TWICE DAILY NEEDED 18) LIDOCAINE 5% PATCH APPLY 1 PATCH TO SKIN SITE NIGHTLY ACTIVE NEEDED FOR PAIN. MAY USE 1-3 PATCHES. PATCHES MAY BE CUT TO FIT ONTO FEET. APPLY PATCH AND PRESS FIRMLY FOR 10-15 SECONDS. KEEP ON FOR 12 HOURS THEN REMOVE PATCH FOR 12 HOURS. 19) METFORMIN HCL 500MG 24HR SA TAB TAKE FOUR TABLETS BY ACTIVE MOUTH ONCE A DAY FOR BLOOD SUGAR CONTROL. TAKE WITH FOOD. AVOID ALCOHOL. DISCONTINUE BEFORE GETTING XRAY DYE. 20) NYSTATIN 510657 UNT/GM CREAM APPLY LIBERALLY TO ACTIVE AFFECTED AREA(S) THREE TIMES A DAY FOR FUNGAL SKIN INFECTION - TOPICAL USE ONLY. 21) POLYETHYLENE GLYCOL 3350 ORAL PWDR MIX [...] TAKE TWO TABLETS BY MOUTH AT ACTIVE (S) BEDTIME FOR DEPRESSION Active Non-VA Medications Status 1) Non-VA TRIAMCINOLONE ACETONIDE 0.025% CREAM SPARINGLY ACTIVE TO AFFECTED AREA(S) TWICE A DAY 27 Total Medications /es/ EYAD GUY MD EMERGENCY MEDICINE Signed: 12/18/2023 18:38 Receipt Acknowledged By: 12/19/2023 08:22 /los/ [place] WINDING INSPECTOR AND TESTER-C NURSE PRACTITIONER for [facility] December 18, 2023 05:44 PM EMERGENCY DEPT TRI AGE NOTE: LOCAL TITLE: EMERGENCY DEPARTMENT TRIAGE NOTE STANDARD TITLE: EMERGENCY DEPT TRIAGE NOTE DATE OF NOTE: DECEMBER 18, 2023@17:44 ENTRY DATE: DECEMBER 18, 2023@17:44:37 AUTHOR: MARY JANE COOMBS COSIGNER: URGENCY: STATUS: COMPLETED Emergency Department/Urgent Care Center Triage Patient age:53 Sex: MALE On arrival patient was: AMBULATORY Patient phone number: Allergies: NIACIN, SIMVASTATIN, COREG 25MG TABLET, PRAVASTATIN, SHRIMP, ATORVASTATIN ROSUVASTATIN, LOVASTATIN, PITAVASTATIN Subjective/Chief Complaint: rash Objective: Pt to ED with complaints of a generalized rash x 2 weeks. denied cp, sob, fever or chills. denied contact with known allergen. appeared awake and alert. had no further comlplaints. no distress noted. The patient is not a fall risk. BP: P: R: WT: T: HT: Temperature 98 F (36.7 C) Pulse 82 Respirations 18 Blood Pressure 150/80 Pain scale recorded: 1 Pulse Oximetry 92 Room Air Sepsis Screening Evaluation Emergency Severity Index (LELIA) level Level 4 Current Medications: Active Outpatient Medications (including Supplies): Active Outpatient [...] TIMES A DAY (EXTERNAL USE ONLY) 4) CHOLECALCIF 50MCG (D3-2,000UNIT) TAB TAKE TWO TABLETS ACTIVE BY MOUTH ONCE A DAY FOR VITAMIN D DEFICIENCY. 5) CPD-NALTREXONE 3MG (LOW DOSE) CAP TAKE 1 CAPSULE BY ACTIVE MOUTH ONCE A DAY 6) CYANOCOBALAMIN 100MCG TAB TAKE ONE TABLET BY MOUTH ACTIVE ONCE A DAY FOR B12 SUPPLEMENTATION 7) CYCLOBENZAPRINE HCL 10MG TAB TAKE ONE TABLET BY MOUTH ACTIVE THREE TIMES A DAY NEEDED FOR MUSCLE SPASM MAY CAUSE DROWSINESS. DO NOT DRINK ALCOHOL WHILE TAKING THIS MEDICATION. 8) DEXTROSE 24GM/31GM SQUEEZE TUBE TAKE 1 TUBE BY MOUTH ACTIVE ONCE A DAY NEEDED REPEAT DOSE IF HYPOGLYCEMIA CONTINUES 15 MINUTES AFTER THE FIRST DOSE. 9) DICLOFENAC NA 1% TOP GEL APPLY 4 GM TO AFFECTED ACTIVE AREA(S) FOUR TIMES A DAY FOR PAIN/INFLAMMATION; NOT MORE THAN 16 GRAMS DAILY TO ANY LOWER EXTREMITY JOINT. NOT MORE THAN 8 GRAMS DAILY TO ANY UPPER EXTREMITY JOINT. MAX 32GM/DAY OVER ALL JOINTS. (MEASURE DOSE WITH RULER ATTACHED INSIDE BOX) 10) DOCUSATE NA 100MG CAP TAKE ONE CAPSULE BY MOUTH TWICE ACTIVE A DAY FOR SOFTENING STOOL HOLD FOR LOOSE STOOL/DIARRHEA. 11) DRESSING,POLYSKIN II 2 X 2.75IN JEFFERY#5416 USE/APPLY ACTIVE DRESSING(S) TO AFFECTED AREA(S) DIRECTED FOR USE WITH GLUCOSE SENSOR 12) EZETIMIBE 10MG TAB TAKE ONE TABLET BY MOUTH ONCE A ACTIVE DAY TO LOWER CHOLESTEROL 13) FISH OIL 1000MG (500MG DHA/EPA) CAP TAKE TWO CAPSULES ACTIVE BY MOUTH TWICE A DAY TO LOWER TRIGLYCERIDES 14) FLUTICAS 250/SALMETEROL 50 INHL DISK 60 INHALE 1 ACTIVE INHALATION BY ORAL INHALATION TWICE A DAY FOR ASTHMA (OPEN DISKUS; CLICK ONLY ONCE; MAY INHALE TWICE TO COMPLETE DOSE; CLOSE WHEN FINISHED) RINSE MOUTH AND SPIT AFTER EACH USE. 15) GLIPIZIDE 5MG TAB TAKE ONE TABLET BY MOUTH TWO TIMES ACTIVE A DAY BEFORE MEALS TAKE 30 MINUTES BEFORE EATING. 16) GLUCOSE SENSOR [employer] BREN 3 USE SENSOR EVERY ACTIVE 2 WEEKS FOR BLOOD SUGAR MONITORING CHANGE SENSOR/SITE EVERY 14 DAYS. TO REPLACE SENSOR FOR ANY REASON OR FOR TECHNICAL HELP PLEASE CALL Outline DESK: -SPECIFIC PHONE NUMBER: [phone]). 17) LIDOCAINE 2.5/PRILOCAINE 2.5% CREAM APPLY LIGHTLY TO ACTIVE AFFECTED AREA(S) TWICE DAILY NEEDED 18) LIDOCAINE 5% PATCH APPLY 1 PATCH TO SKIN SITE NIGHTLY ACTIVE NEEDED FOR PAIN. MAY USE 1-3 PATCHES. PATCHES MAY BE CUT TO FIT ONTO FEET. APPLY PATCH AND PRESS FIRMLY FOR 10-15 SECONDS. KEEP ON FOR 12 HOURS THEN REMOVE PATCH FOR 12 HOURS. 19) METFORMIN HCL 500MG 24HR SA TAB TAKE FOUR TABLETS BY ACTIVE MOUTH ONCE A DAY FOR BLOOD SUGAR CONTROL. TAKE WITH FOOD. AVOID ALCOHOL. DISCONTINUE BEFORE GETTING XRAY DYE. 20) NYSTATIN [id number] UNT/GM CREAM APPLY LIBERALLY TO ACTIVE AFFECTED AREA(S) THREE TIMES A DAY FOR FUNGAL SKIN INFECTION - TOPICAL USE ONLY. 21) POLYETHYLENE GLYCOL 3350 ORAL PWDR MIX [...] TAKE TWO TABLETS BY MOUTH AT ACTIVE (S) BEDTIME FOR DEPRESSION Active Non-VA Medications Status 1) Non-VA TRIAMCINOLONE ACETONIDE 0.025% CREAM SPARINGLY ACTIVE TO AFFECTED AREA(S) TWICE A DAY 27 Total Medications Current Problems: 1) Abnormal results of liver function studies 2) Diverticulitis 3) Erectile dysfunction 4) Obesity 5) Chest pain 6) Sensory-neural hearing loss 7) Back pain (SNOMED CT [id number]) 8) Benign hypertension (SNOMED CT 22125680) 9) Convulsion 10) Male hypogonadism 11) Conversion disorder 12) Testicular hypofunction 13) Osteoarthritis of right knee joint 14) Diabetes mellitus 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 Over the past month, have you [...] required due to responses to other questions. /los/ MARY JANE COOMBS [employer] CONSULTANT REGISTERED NURSE Signed: 12/18/2023 17:46 MARY JANE COOMBS [facility]
--- OUTSIDE RECORDS SUMMARY | 2024-11-30 15:25 | XMS_ITS | Encounter Summary ---
Author Name [facility] Organization [facility] [place] Address [address] [place] [address] Care Team Providers Care Industrial Hygiene Technician Name Role Phone YONATHAN LINDSAY Primary Care Provider OMEGA Bethea Unavailable Unavailable Selected Encounter This section includes the information on record at [place] for the Encounter. Date/Time Encounter Type Encounter Description Reason Provider Source Aug 08, 2024 02:00 PM OFFICE O/P EST MOD 30 MIN [facility] - IND ICD-10-CM F43.12 Post-traumatic stress disorder, chronic RACHEL LEACH [facility] Encounter Template Text not used by [place] Assessments - Encounter Diagnoses This section includes the primary and secondary diagnoses documented for the Encounter. Date/Time Primary/Secondary Diagnosis Diagnosis Name Provider Source Aug 08, 2024 02:06 PM PRIMARY Post-traumatic stress disorder, chronic RACHEL LEACH [facility] Aug 08, 2024 02:06 PM SECONDARY Conversion disorder with seizures or convulsions RACHEL LEACH [facility] Aug 08, 2024 02:06 PM SECONDARY Major depressive disorder, recurrent, unspecified RACHEL LEACH [facility] Plan of Treatment: Future Appointments (+ 6 months) and Future Tests (+/- 45 days) The Plan of Treatment section includes future care activities for the patient from all [place] treatmentfacilities. This section includes future appointments and future orders which are active, pending or scheduled. Future Appointments This section includes appointments that were scheduled to occur 6 months from the date of the Encounter, up to a maximum of 20 appointments. The data comes from all [place] treatment facilities. Appointment Date/Time Appointment Type Appointme nt Facility Name Aug 09, 2024 02:00 PM AMBULATORY - SURGERY . [facility] Aug 13, 2024 03:00 PM AMBULATORY - PSYCHIATRY [facility] Aug 27, 2024 09:30 AM AMBULATORY - REHAB MEDICIN E [facility] Sep 03, 2024 10:30 AM AMBULATORY - NONE [facility] Sep 11, 2024 11:00 AM AMBULATORY - REHAB MEDICIN E [facility] Sep 12, 2024 02:30 PM AMBULATORY - MEDICINE [facility] Sep 27, 2024 10:15 AM AMBULATORY - REHAB MEDICIN E [facility] Oct 10, 2024 02:00 PM AMBULATORY - PSYCHIATRY [facility] Oct 24, 2024 11:00 AM AMBULATORY - REHAB MEDICIN E [facility] Oct 25, 2024 10:30 AM AMBULATORY - MEDICINE [facility] Nov 01, 2024 01:00 PM AMBULATORY - SURGERY [facility] Nov 13, 2024 12:00 PM AMBULATORY - NONE [facility] Nov 13, 2024 02:00 PM AMBULATORY - MEDICINE [facility] November 29, 2024 11:15 AM AMBULATORY - REHAB MEDICIN E [facility] December 16, 2024 02:30 PM AMBULATORY - MEDICINE [facility] December 17, 2024 02:00 PM AMBULATORY - PSYCHIATRY [facility] Jan 13, 2025 11:15 AM AMBULATORY - MEDICINE [facility] Active, Pending, and Scheduled Orders This section includes a listing of several types of active, pending, and scheduled orders, including clinic medications orders, diagnostic test orders, procedure orders and consult orders; where the start date of the order is 45 days before the date of the Encounter or 45 days after the date of theEncounter. The data comes from all [facility] facilities. Test Date/Time Test Type Test Details Facility Name Jul 18, 2024 12:00 AM Laboratory - Chemi stry Order HGA1C BLOOD SP [facility] Jul 18, 2024 12:00 AM Laboratory - Chemi stry Order HEPATIC FUNTION PANEL (STL) GREEN LI/HEP BLD/PLAS PLASMA SP [facility] Jul 18, 2024 12:00 AM Laboratory - Chemi stry Order PROST. SPECIFIC AG.(PB-STL) GOLD/RED SST SERUM SP [facility] Jul 18, 2024 12:00 AM Laboratory - Chemi stry Order AMMONIA (STL-MA) WHITE CAP EDTA PLASMA SP [facility] Jul 18, 2024 12:00 AM Laboratory - Chemi stry Order MICRAL/CREAT PROFILE (STL) URINE SP [facility] Social History: Smoking Status (Most current) and Tobacco Use (All prior to encounter date) This section includes the most current, and the historical, smoking and tobacco- related health factors from the [place] facility where the Encounter took place. Current Smoking Status This section includes the most current smoking, or tobacco-related health factor, from the [place] facility where the Encounter took place. Date/Time Current Smoking Status Comment Facil ity Jul 18, 2024 02:00 PM VA-TOBACCO NEVER U SED CIGARETTES [facility] Tobacco Use History This section includes a history of the smoking, or tobacco-related health factors, that were collected on or before the date of the Encounter. The data comes from the [place] facility where the Encounter took place. Date/Time Smoking Status/Tobacco Use Comment F acility Jul 18, 2024 02:00 PM VA-TOBACCO SCREEN FOLLOW-UP [facility] Jul 18, 2024 02:00 PM VA-TOBACCO USE ADVICE [facility] Jul 18, 2024 02:00 PM VA-TOBACCO USE VENDING MACHINE COLLECTOR NO [facility] Jul 18, 2024 02:00 PM VA-TOBACCO USE MED NO [facility] Jul 18, 2024 02:00 PM VA-TOBACCO USE BREE E DAYS OTHER TYPE [facility] Jul 18, 2024 02:00 PM VA-TOBACCO USE BREE E DAYS SMOKELESS [facility] Jul 04, 2023 01:09 PM VA-TOBACCO USE > 1 5 LESS THAN 30 YEARS [facility] Jul 04, 2023 01:09 PM VA-TOBACCO USE ADVICE [facility] Jul 04, 2023 01:09 PM VA-TOBACCO USE VENDING MACHINE COLLECTOR NO [facility] Jul 04, 2023 01:09 PM VA-TOBACCO USE MED NO [facility] Jul 04, 2023 01:09 PM VA-TOBACCO USE WI 30 MIN OF WAKEUP [facility] Jul 04, 2023 01:09 PM VA-TOBACCO USER EVERY DAY [facility] Jul 28, 2022 01:00 PM VA-TOBACCO FORMER USER [facility] Jul 28, 2022 01:00 PM VA-TOBACCO QUIT 15 YRS OR MORE [facility] Jul 13, 2021 01:00 PM VA-TOBACCO DOESNT USE WI 30 MIN WAKEUP [facility] Jul 13, 2021 01:00 PM VA-TOBACCO USE 30 YEARS OR MORE [facility] Jul 13, 2021 01:00 PM VA-TOBACCO USE ADVICE [facility] Jul 13, 2021 01:00 PM VA-TOBACCO USE VENDING MACHINE COLLECTOR NO [facility] Jul 13, 2021 01:00 PM VA-TOBACCO USE MED NO [facility] Jul 13, 2021 01:00 PM VA-TOBACCO USER SOME DAYS [facility] May 20, 2020 03:30 PM VA-TOBACCO DOESNT USE WI 30 MIN WAKEUP [facility] May 20, 2020 03:30 PM VA-TOBACCO USE > 1 5 LESS THAN 30 YEARS [facility] May 20, 2020 03:30 PM VA-TOBACCO USE ADVICE [facility] May 20, 2020 03:30 PM VA-TOBACCO USE VENDING MACHINE COLLECTOR NO [facility] May 20, 2020 03:30 PM VA-TOBACCO USE MED NO [facility] May 20, 2020 03:30 PM VA-TOBACCO USER SOME DAYS [facility] Jun 26, 2018 11:30 AM VA-TOBACCO FORMER USER [facility] Jun 26, 2018 11:30 AM VA-TOBACCO QUIT 15 YRS OR MORE [facility] Mar 02, 2017 07:35 AM QUIT TOBACCO >7 YEARS AGO [facility] May 25, 2016 05:48 AM CURRENT TOBACCO USER [facility] May 25, 2016 05:48 AM TOBACCO MEDS OFFER ED BUT DECLINED [facility] Jun 23, 2015 02:29 PM QUIT TOBACCO >7 YEARS AGO [facility] Sep 12, 2014 06:15 AM CURRENT TOBACCO USER [facility] Sep 12, 2014 06:15 AM QUIT TOBACCO >7 YEARS AGO [facility] Sep 12, 2014 06:15 AM TOBACCO MEDS OFFER ED BUT DECLINED [facility] Jun 25, 2013 02:47 PM QUIT TOBACCO >7 YEARS AGO [facility] May 04, 2010 12:36 PM LIFETIME NON-USER OF TOBACCO [facility] Jul 30, 2009 11:12 AM CURRENT TOBACCO USER [facility] Mar 20, 2008 01:00 PM CURRENT TOBACCO USER [facility] Mar 20, 2008 01:[address] OP SMOKING CLINIC [facility] Mar 20, 2008 01:00 PM TOBACCO OFFERRED P T MEDS (PROVIDER) [facility] Mar 06, 2007 10:38 AM QUIT TOBACCO >7 YEARS AGO [facility] May 09, 2006 09:29 AM CURRENT TOBACCO USER [facility] Aug 27, 2004 10:41 AM CURRENT TOBACCO USER [facility] Aug 27, 2004 10:41 AM SMOKER <10 [facility] Advance Directives: All historical and current Section Date Range: From patient's date of to the date document was created. This section includes ALL of a patient's completed or amended [place] Advance and Rescinded Directives. The entries below indicate that a directive exists for the patient, but an actual copy is not included with this document. The data comes from all [place] facilities. Date Advance Directives Provider Source Oct 21, 2022 FRANKLIN KO [facility] Sep 23, 2004 ADVANCE DIRECTIVE KLAUDIACJ [facility] May 24, 2004 AD[address] [facility] May 24, 2000 ADVANCE DIRECTIVE WAQASEMEKAMICHELE Villasenor [facility] Nov 11, 1996 ADVANCE DIRECTIVE MAGGIE DRAKE [facility] December 08, 1995 ADVANCE DIRECTIVE NATANAELKI [facility] Encounter Notes: All associated encounter notes This section contains the clinical notes associated to the Encounter. Date/Time Encounter Note(s) Provider Source Aug 08, 2024 01:50 PM PSYCHIATRY NOTE: LOCAL TITLE: PSYCHIATRY [facility] STANDARD TITLE: PSYCHIATRY NOTE DATE OF NOTE: AUG 08, 2024@13:50 ENTRY DATE: AUG 01, 2024@08:59:21 AUTHOR: RACHEL LEACH EXP COSIGNER: URGENCY: STATUS: COMPLETED [facility] - MEDICATION MANAGEMENT Name..................JC MOSES Age...................54 Sex...................MALE SSN...................[id number] Service Connection.... Service Connected: 100% Rated Disabilities: POST-TRAUMATIC STRESS DISORDER (70% SC) SEIZURE DISORDER (80% SC) ASTHMA,BRONCHIAL (30% SC) HIATAL HERNIA (10% SC) TINNITUS (10% SC) FIBROMYALGIA (40% SC) CHRONIC FATIGUE SYNDROME (100% SC) [facility] CONSENT: Consent: Avon verbally consented to a clinical video telehealth follow-up appointment. Location: In [place], [place] in car (he was not driving) Phone number: Survey: Daughter and background Lock: The virtual conference room was locked. Previous psychiatric notes, medical notes, and medication history have been reviewed. This appointment was conducted by clinical video telehealth. SYNOPSIS: Jc is a with PMH of PTSD, MDD, PNES, fibromyalgia, non- insulin dependent diabetes mellitus 2, diverticulitis s/p colectomy who initially presented in 1991. He most recently followed with Dr Link until joining my clinic on 05/21/2024. Relevant Psych Hx: * Prior hospitalizations: 8 admissions since 1998, most recent 09/13/2023 for one day * Prior suicide attempts: 3 previous attempts, 2 by OD, years ago had 9mm that did not go off, went outside and pulled trigger and it went off Substance use: Rare use of both alcohol and tobacco (chews while traveling). Stated he uses THC Gummies on occasion to help with sleep. Denied all others. Med trials: paroxetine: 7699-7971, max dose 30 mg, puts my head all weird. Horrible, violent night terrors. sertraline: 2013, max dose 100 mg didn't tolerate citalopram: 4060-0633, max dose 20 mg doesn't remember Cymbalta: 2023 Bupropion: 1995, max dose 75 mg buspirone: 2017, max dose 15 mg total didn't like the way it made me feel, jittery all the time lamotrigine: 1999 2000, max dose 100 mg doesnt remember risperidone: 2002 2006, 2018 and 2020, max dose 1 mg total daily doesnt remember nefazodone: , max dose 200 mg pregabalin: potentially helpful hydroxyzine: 6900-1666, max dose up to 50 mg daily doesn't remember trazodone: Started in 2011 prazosin: Started in 2012 clonazepam: lorazepam, chronic, increasing tolerance/addiction, taken off zolpidem: 6089-6599, amnesia, sleep walking Ketamine:for pain, believes this made him suicidal Values/hobbies: Family (, lives with and adult daughter), work (runs a [employer]), outdoors/hunting INTERVAL HISTORY: HPI: The patient presented on time and in NAD. The patient was last seen on 05/21/24 at which time he reported some increase in mood + PTSD symptoms. However, we held off on med changes at vet's preference. In the interim, the patient stated that he had a scary incident where he had seizure like activity on the roof while helping his parents. He stated that he is doing better now. He reported that his mom is doing much better. His dad had an ocular stroke in the interim, and he is also doing better. He is planning on going on a trip to [place] with other vets for re-enactment activities and camping for 2 weeks. Regarding his mood, the vet stated that he has been stable since his last visit. He has continued to have a sad mood from time to time but denied any SI. He reported continued chronic feelings of worthlessness and hopelessness that he continues to navigate well with his support from family. He acknowledged continued nightmares but again feels he is coping well. He declined any medication changes today. The reported good compliance to medication and stated his helps with this. He denied any side effects today. OBJECTIVE: Problem List: 1) Abnormal results of liver function studies 2) Diverticulitis 3) Erectile dysfunction 4) Obesity 5) Chest pain 6) Sensory-neural hearing loss 7) Back pain (SNOMED CT 721202818) 8) Benign hypertension (SNOMED CT 60131939) 9) Convulsion 10) Male hypogonadism 11) Conversion disorder (SNOMED CT 600049297) 12) Testicular hypofunction 13) Osteoarthritis of right [...] Fibromyalgia 29) Exposure to potentially hazardous substance 30) Chronic post-traumatic stress disorder 31) Major depressive disorder Outpatient Medications: Active Outpatient Medications (including Supplies): Active Outpatient Medications Status 1) ACETAMINOPHEN 325MG TAB TAKE TWO TABLETS BY MOUTH FOUR TIMES ACTIVE A DAY CAUTION: DO NOT EXCEED 4000MG PER DAY ACETAMINOPHEN (APAP) FROM ALL MEDS. Indication: FOR PAIN 2) ALBUTEROL 90MCG (CFC-F) 200D ORAL INHL INHALE 2 PUFFS BY ACTIVE ORAL INHALATION FOUR TIMES A DAY NEEDED FOR BREATHING. SHAKE WELL. RINSE MOUTHPIECE FREQUENTLY TO PREVENT CLOGGING. 3) BETAMETHASONE DIPROPIONATE 0.05% OINT APPLY LIGHTLY TO ACTIVE AFFECTED AREA(S) THREE TIMES A DAY (EXTERNAL USE ONLY) 4) CETIRIZINE HCL 10MG TAB TAKE ONE TABLET BY MOUTH ONCE A DAY ACTIVE (S) Indication: FOR ALLERGY SYMPTOMS 5) CHOLECALCIF 50MCG (D3-2,000UNIT) TAB TAKE TWO TABLETS BY ACTIVE MOUTH ONCE A DAY FOR VITAMIN D DEFICIENCY. 6) CPD-NALTREXONE 3MG (LOW DOSE) CAP TAKE 1 CAPSULE BY MOUTH ACTIVE ONCE A DAY Indication: FOR FIBROMYALGIA 7) CYANOCOBALAMIN 100MCG TAB TAKE ONE TABLET BY MOUTH ONCE A ACTIVE (S) DAY FOR B12 SUPPLEMENTATION 8) CYCLOBENZAPRINE HCL 10MG TAB TAKE ONE TABLET BY MOUTH THREE ACTIVE TIMES A DAY NEEDED MAY CAUSE DROWSINESS. DO NOT DRINK ALCOHOL WHILE TAKING THIS MEDICATION. Indication: FOR MUSCLE SPASM 9) DEXTROSE 24GM/31GM SQUEEZE TUBE TAKE 1 TUBE BY MOUTH ONCE A ACTIVE DAY NEEDED REPEAT DOSE IF HYPOGLYCEMIA CONTINUES 15 MINUTES AFTER THE FIRST DOSE. Indication: FOR LOW BLOOD SUGAR 10) DICLOFENAC NA 1% TOP GEL APPLY 4 GM TO AFFECTED AREA(S) FOUR ACTIVE TIMES A DAY FOR PAIN/INFLAMMATION; NOT MORE THAN 16 GRAMS DAILY TO ANY LOWER EXTREMITY JOINT. NOT MORE THAN 8 GRAMS DAILY TO ANY UPPER EXTREMITY JOINT. MAX 32GM/DAY OVER ALL JOINTS. (MEASURE DOSE WITH RULER ATTACHED INSIDE BOX) 11) DOCUSATE NA 100MG CAP TAKE ONE CAPSULE BY MOUTH TWICE A DAY ACTIVE HOLD FOR LOOSE STOOL/DIARRHEA. Indication: FOR SOFTENING STOOL 12) DRESSING,POLYSKIN II 2 X 2.75IN JEFFERY#[id number] USE/APPLY ACTIVE DRESSING(S) TO AFFECTED AREA(S) DIRECTED Indication: FOR USE WITH GLUCOSE SENSOR 13) DULOXETINE HCL 30MG EC CAP TAKE ONE CAPSULE BY MOUTH ONCE A ACTIVE DAY DO NOT ABRUPTLY DISCONTINUE MEDICATION. Indication: FOR PTSD/MOOD/ANXIETY/PAIN 14) EMPAGLIFLOZIN 25MG TAB TAKE ONE TABLET BY MOUTH ONCE A DAY ACTIVE 15) EZETIMIBE 10MG TAB TAKE ONE TABLET BY MOUTH ONCE A DAY TO ACTIVE LOWER CHOLESTEROL 16) GLIPIZIDE 5MG TAB TAKE ONE TABLET BY MOUTH TWO TIMES A DAY ACTIVE BEFORE MEALS TAKE 30 MINUTES BEFORE EATING. Indication: FOR DIABETES 17) GLUCOSE SENSOR FREESTYLE BREN 3 PLUS USE SENSOR EVERY 15 ACTIVE DAYS Indication: FOR BLOOD GLUCOSE MONITORING 18) LIDOCAINE 5% PATCH APPLY 1 PATCH TO SKIN SITE NIGHTLY ACTIVE NEEDED . MAY USE 1-3 PATCHES. PATCHES MAY BE CUT TO FIT ONTO FEET. APPLY PATCH AND PRESS FIRMLY FOR 10-15 SECONDS. KEEP ON FOR 12 HOURS THEN REMOVE PATCH FOR 12 HOURS. Indication: FOR PAIN 19) METFORMIN HCL 500MG 24HR SA TAB TAKE FOUR TABLETS BY MOUTH ACTIVE ONCE A DAY FOR BLOOD SUGAR CONTROL. TAKE WITH FOOD. AVOID ALCOHOL. DISCONTINUE BEFORE GETTING XRAY DYE. 20) POLYETHYLENE GLYCOL 3350 ORAL PWDR MIX AND DRINK 1 CAPFUL BY ACTIVE MOUTH ONCE A DAY NEEDED (MEASURE WITH CAP AND MIX IN 8 OZ OF WATER) Indication: FOR CONSTIPATION 21) PRAZOSIN HCL 2MG CAP TAKE THREE CAPSULES BY MOUTH AT BEDTIME ACTIVE MAY CAUSE DIZZINESS OR DROWSINESS. Indication: FOR NIGHTMARES 22) PREGABALIN 100MG ORAL CAP TAKE TWO CAPSULES BY MOUTH EVERY ACTIVE MORNING AND TAKE THREE CAPSULES EVERY EVENING *MAY CAUSE DROWSINESS* Indication: FOR FIBROMYALGIA 23) SEMAGLUTIDE 2MG/0.75ML INJ PEN 3ML INJECT 2MG UNDER THE SKIN ACTIVE EVERY WEEK Indication: FOR DIABETES 24) SODIUM CHLORIDE 0.65% SOLN NASAL SPRAY USE 1 SPRAY INTO ACTIVE NOSTRIL(S) EVERY 4 HOURS NEEDED Indication: FOR NASAL CONGESTION 25) TRAZODONE HCL 100MG TAB TAKE TWO TABLETS BY MOUTH AT BEDTIME ACTIVE (S) Indication: FOR DEPRESSION Active Non-VA Medications Status 1) Non-VA TRIAMCINOLONE ACETONIDE 0.025% CREAM SPARINGLY TO ACTIVE AFFECTED AREA(S) TWICE A DAY Indication: FOR ATOPIC DERMATITIS 26 Total Medications The medication list has been reviewed. Vital Signs: Height: 72 in [182.9 cm] (06/14/2024 12:23) Weight: 281 lb [127.46 kg] (07/18/2024 13:55) BMI: 38.2 Temperature: 97.7 F [36.5 C] (07/18/2024 13:55) Blood Pressure: 136/72 (07/18/2024 15:41) Pulse: 76 (07/18/2024 13:55) Respirations: 16 (07/18/2024 13:55) Patient Weight History - Last Four 1. 281.0 lbs. / 127.5 kg. on JUL 18, 2024@13:55:01 2. 288.3 lbs. / 130.8 kg. on JUN 14, 2024@12:23:33 3. 282.3 lbs. / 128.1 kg. on MAY 31, 2024@10:29:24 4. 284.4 lbs. / 129.0 kg. on MAY 03, 2024@10:44:03 Allergies: NIACIN, SIMVASTATIN, COREG 25MG TABLET, PRAVASTATIN, SHRIMP, ATORVASTATIN ROSUVASTATIN, LOVASTATIN, PITAVASTATIN Relevant Labs: Complete Blood Count WBC: 7.3 10*3/uL (04/08/24 15:28) RBC: 5.23 10*6/uL (04/08/24 15:28) HGB: HGB 16.6 g/dL 04/08/2024 15:28 HCT: 47.8 % (04/08/24 15:28) PLT: PLT 164 10*3/uL 04/08/2024 15:28 Comprehensive Metabolic Panel SODIUM 139 mEq/L 04/08/2024 15:28 POTASSIUM 4.3 mEq/L 04/08/2024 15:28 CHLORIDE 104 mEq/L 04/08/2024 15:28 UREA NITROGEN 13.7 mg/dL 04/08/2024 15:28 CREATININE 1.59 H mg/dL 04/08/2024 15:28 CALCIUM 9.6 mg/dL 04/08/2024 15:28 PROTEIN 7.6 g/dL 02/23/2024 11:19 ALBUMIN 4.1 g/dL 02/23/2024 11:19 ALKALINE PHOSPHATASE 105 U/L 02/23/2024 11:19 ALT/SGPT 38 U/L 02/23/2024 11:19 AST/SGOT 28 U/L 02/23/2024 11:19 TOTAL BILIRUBIN 0.5 mg/dL 02/23/2024 11:19 CARBON DIOXIDE 22 mEq/L 04/08/2024 15:28 GLUCOSE 234 H mg/dL 04/08/2024 15:28 EGFR (CKD-EPI 2020) 50.6 04/08/2024 15:28 Coagulation parameters PT: 12.5 sec (04/08/24 15:28) INR: 1.1 INR (04/08/24 15:28) PTT: No PTT EO data found Lipid Panel TRIGLYCERIDE 373 H mg/dL 02/23/2024 11:19 CHOLESTEROL 153 mg/dL 02/23/2024 11:19 HDL(New) 37 L mg/dL 02/23/2024 11:19 DIRECT LDL 64 L mg/dL 02/23/2024 11:19 CALCULATED LDL comment mg/dL 02/23/2024 11:19 HgbA1c: HGA1C 6.8 H % 12/14/2023 11:57 TSH 1.176 uIU/mL 05/15/2023 15:37 B12: B12 423 pg/mL 12/14/2023 11:58 Folate: No FOLATE (STL-MA);FOLATE (PB);FOLATE (DC 05-07);FOLATE (DC 05/07) data found VITAMIN D, 25-HYDROXY 44.3 ng/mL 12/14/2023 11:57 Urine Drug Screen No data available Physical Exam: General: No acute distress, seated comfortably on screen, healthy appearing CV/Resp: No labored breathing through screen, no cyanosis appreciated Extremities: No gross abnormalities, moving all spontaneously Neurological: The patient is awake, alert, and grossly oriented. Normal gait and station, no gross focal deficits Skin: No obvious rashes or defects on exposed skin Mental Status Exam: Appearance: appears stated age Behavior: cooperative, friendly Eye contact: good Speech: normal rate/rhythm Psychomotor: no psychomotor agitation or slowing visualized through screen Mood: ok Affect: congruent, euthymic Thought process: linear, goal oriented; no clear delusions voiced Thought content: -SI/HI Perception: not seen reacting to internal stimuli Cognition: Alert and oriented, memory fair, concentration fair Fund of knowledge: average Insight: fair Judgment: fair Review of systems: Negative except where noted above. SAFETY RISK ASSESSMENT: As noted below, patient has some chronic non-modifiable risk factors and several protective factors as well. Risk factors for suicide: * chronic mental illness * gender * past suicide attempts * medical comorbidities * access to lethal means (all locked but 6, he did request 6 gunlocks) * history of mental health hospitalizations Protective factors: * denial of suicidal/homicidal ideation * exhibits future planning * medication compliant * engaged in treatment * access to treatment * future orientation * yazdanism jordy (Sabianist) * responsibility towards family History of violence: * none Acute risk of harm to self or others is currently low. Chronic risk of harm to self or others is elevated due to above chronic non-modifiable risk factors. Patient will benefit from ongoing outpatient mental health treatment. Patient has been advised to call [phone] or go to closest ER in the case of a mental health emergency. ASSESSMENT: JC HAAS is a with PMH of PTSD, MDD, PNES, fibromyalgia, non-insulin dependent diabetes mellitus 2, diverticulitis s/p colectomy who initially presented in 1998. He most recently followed with Dr Link until joining my clinic on 05/21/2024. Today, the reported stability in his mood and anxiety symptoms since we last spoke. He feels he is doing well navigating these symptoms and does not feel an increase in medications are needed at this time. Please see below for updates to plan. DIAGNOSES: # PTSD # MDD # PNES # Insomnia TREATMENT PLAN: # PTSD # MDD # PNES -Cont cymbalta 30 mg -Cont prazosin 6 mg qhs -Cont psychotherapy w/ Dr. Pablo -Cont biofeedback # Insomnia -Continue trazodone 200 mg nightly FOLLOW UP: 2-3 mo SUPPORTIVE PSYCHOTHERAPY/PSYCHOEDUCATI ON: n/a INSTRUCTIONS GIVEN TO PATIENT/FAMILY *Report medication side effects promptly *No alcohol/illicit drug use with medication *Exercise caution with driving/use of machinery *Monitor for sedation with use of the medication and if needed avoid use in situations where decreased level of alertness could potentially be dangerous *Follow up with Primary Care Provider *If symptoms get worse, call clinic or Emergency Room as appropriate *Provided orientation to the inter-disciplinary team and ways to access crisis/emergency care CONSENT We have discussed alternatives to treatment, including no treatment, as well as risks, benefits, side effects. The patient/guardian understood and consented to treatment provided. The patient is aware to call clinic or the emergency room as appropriate if symptoms get worse or if they experience side effects from medications. After a thorough discussion of risks and benefits, patient and provider jointly agreed on prescribing an SSRI/SNRI to address significant mental health symptoms as above. We discussed the risk of side effects, including, but not limited to, GI symptoms, headaches, hyponatremia, sexual dysfunction, serotonin syndrome (when combined with other serotonergic medications such as dextromethorphan, opioids, triptans, zofran, etc). Patient advised to reach out to clinic if they have any side effects and to go to the closest ER or to call [phone] if they have serious side effects such as serotonin syndrome. Patient reported understanding and had no further questions. After a thorough discussion of risks and benefits, patient and provider jointly agreed on prescribing trazodone to address significant insomnia as above. We discussed the risk of side effects, including orthostasis. Patient advised to reach out to clinic if they experience any side effects and to go to closest ER or call 911 should they experience priapism to get urgent medical care. Patient verbalized understanding and reported no further questions. After a thorough discussion of risks and benefits, patient and provider jointly agreed on prescribing an alpha-1 antagonist/alpha-2 agonist to address significant mental health symptoms as above. We discussed the risk of side effects, including orthostasis and subsequent risk of falls. Patient advised to reach out to clinic if they experience any side effects. Patient verbalized understanding and reported no further questions. REMINDERS: Last bremen assessment completed on 05/21/24 /los/ [facility] [place] Signed: 08/08/2024 14:07 RACHEL LEACH [facility]
--- OUTSIDE RECORDS SUMMARY | 2024-11-30 15:25 | XMS_ITS | Encounter Summary ---
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 Date/Time Encounter Type Encounter Description Reason Provider Source Jul 18, 2024 02:00 PM OFFICE O/P EST MOD 30 MIN PRIMARY CARE/MEDICINE ICD-10-CM E66.9 Obesity, unspecified YONATHAN LINDSAY Encounter Template Text not used by [place] Assessments - Encounter Diagnoses This section includes the primary and secondary diagnoses documented for the Encounter. 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 LESLEY ELI [facility] Jul 18, 2024 03:46 PM SECONDARY Chronic fatigue, unspecified LESLEY ELI [facility] Jul 18, 2024 03:46 PM SECONDARY Conversion disorder with seizures or convulsions LESLEY ELI [facility] Jul 18, 2024 03:46 PM SECONDARY Essential (primary) hypertension LESLEY ELI [facility] Jul 18, 2024 03:46 PM SECONDARY Fibromyalgia LESLEY ELI [facility] Jul 18, 2024 03:46 PM SECONDARY Hyperlipidemia, unspecified LESLEY ELI [facility] Jul 18, 2024 03:46 PM SECONDARY Low back pain, unspecified LESLEY ELI [facility] Jul 18, 2024 03:46 PM SECONDARY Major depressive disorder, recurrent, unspecified LESLEY ELI [facility] Jul 18, 2024 03:46 PM SECONDARY Nonalcoholic steatohepatitis (QUIJANO) LESLEY ELI [facility] Jul 18, 2024 03:46 PM SECONDARY Obstructive sleep apnea (adult) (pediatric) LESLEY ELI [facility] Jul 18, 2024 03:46 PM SECONDARY Post-traumatic stress disorder, chronic LESLEY ELI [facility] Jul 18, 2024 03:46 PM SECONDARY Syncope and collapse LESLEY ELI [facility] Jul 18, 2024 03:46 PM SECONDARY Type 2 diabetes mellitus with unspecified complications LESLEY ELI [facility] Jul 18, 2024 03:46 PM SECONDARY Unilateral primary osteoarthritis, right knee LESLEY ELI [facility] Jul 18, 2024 03:46 PM SECONDARY Unspecified convulsions LESLEY ELI [facility] Jul 18, 2024 03:46 PM SECONDARY Unspecified fall, sequela LESLEY ELI [facility] Jul 18, 2024 03:46 PM SECONDARY Unspecified sensorineural hearing loss LESLEY ELI [facility] Jul 18, 2024 03:46 PM SECONDARY Vitamin D deficiency, unspecified LESLEY ELI [facility] Jul 18, 2024 03:46 PM SECONDARY Weakness LESLEY ELI [facility] Plan of Treatment: Future Appointments (+ 6 months) and Future Tests (+/- 45 days) The Plan of Treatment section includes future care activities for the patient from [facility] [place] [facility] This section includes future appointments and future orders which are active, pending or scheduled. Future Appointments This section includes appointments that were scheduled to occur 6 months from the date of the Encounter, up to a maximum of 20 appointments. The data comes from all [facility]. Appointment Date/Time Appointment Type Appointme nt Facility Name Jul 22, 2024 03:00 PM AMBULATORY - NONE [facility] Aug 02, 2024 01:30 PM AMBULATORY - SURGERY [facility] Aug 08, 2024 02:00 PM AMBULATORY - PSYCHIATRY [facility] Aug 09, 2024 02:00 PM AMBULATORY - SURGERY [facility] Aug 13, 2024 03:00 PM AMBULATORY - PSYCHIATRY [facility] Aug 27, 2024 09:30 AM AMBULATORY - REHAB MEDICIN E [facility] Sep 03, 2024 10:30 AM [facility] - NONE [facility] Sep 11, 2024 11:00 AM AMBULATORY - REHAB MEDICIN E [facility] Sep 12, 2024 02:30 PM AMBULATORY - MEDICINE [facility] Sep 27, 2024 10:15 AM AMBULATORY - REHAB MEDICIN E [facility] Oct 10, 2024 02:00 PM AMBULATORY - PSYCHIATRY [facility] Oct 24, 2024 11:00 AM AMBULATORY - REHAB MEDICIN E [facility] Oct 25, 2024 10:30 AM AMBULATORY - MEDICINE [facility] Nov 01, 2024 01:00 PM [facility] Nov 13, 2024 12:00 PM AMBULATORY - NONE [facility] Nov 13, 2024 02:00 PM AMBULATORY - MEDICINE [facility] November 29, 2024 11:15 AM AMBULATORY - REHAB MEDICIN E [facility] December 16, 2024 02:30 PM AMBULATORY - MEDICINE [facility] December 17, 2024 02:00 PM AMBULATORY - PSYCHIATRY [facility] Jan 13, 2025 11:15 AM AMBULATORY - MEDICINE [facility] Active, Pending, and Scheduled Orders This section includes a listing of several types of active, pending, and scheduled orders, including clinic medications orders, diagnostic test orders, procedure orders and consult orders; where the start date of the order is 45 days before the date of the Encounter or 45 days after the date of theEncounter. The data comes from all [facility] facilities. Test Date/Time Test Type Test Details Facility Name Jul 18, 2024 12:00 AM Laboratory - Chemi stry Order HEPATIC FUNTION PANEL (STL) GREEN LI/HEP BLD/PLAS PLASMA SP [facility] Jul 18, 2024 12:00 AM Laboratory - Chemi stry Order HGA1C BLOOD [facility] Jul 18, 2024 12:00 AM Laboratory - Chemi stry Order PROST. SPECIFIC AG.(PB-STL) GOLD/RED SST SERUM SP [facility] Jul 18, 2024 12:00 AM Laboratory - Chemi stry Order AMMONIA (STL-MA) WHITE CAP EDTA PLASMA SP [facility] Jul 18, 2024 12:00 AM Laboratory - Chemi stry Order MICRAL/CREAT PROFILE (STL) URINE SP [facility] Vital Signs: All taken on the encounter date This section contains inpatient and outpatient Vital Signs collected on the date of the Encounter. Date/Time Temperature Pulse Blood Pressure Respiratory Rate SP02 Pain Height Weight Body Mass Index Source Jul 18, 2024 03:41 PM 136/72 [facility] Jul 18, 2024 02:04 PM 140/78 [facility] Jul 18, 2024 01:55 PM 97.7 76 144/82 16 97 7 281 38 [facility] Social History: Smoking Status (Most current) [...] 02:00 PM VA-TOBACCO NEVER U SED CIGARETTES [facility] Tobacco Use History This section includes a history of the smoking, or tobacco-related health factors, that were collected on or before the date of the Encounter. The data comes from the [place] facility where the Encounter took place. Date/Time Smoking Status/Tobacco Use Comment F acility Jul 18, 2024 02:00 PM VA-TOBACCO SCREEN FOLLOW-UP [facility] Jul 18, 2024 02:00 PM VA-TOBACCO USE ADVICE [facility] Jul 18, 2024 02:00 PM VA-TOBACCO USE FOOD PRESERVATION SCIENTIST NO [facility] Jul 18, 2024 02:00 PM VA-TOBACCO USE MED NO [facility] Jul 18, 2024 02:00 PM VA-TOBACCO USE BREE E DAYS OTHER TYPE [facility] Jul 18, 2024 02:00 PM VA-TOBACCO USE BREE E DAYS SMOKELESS [facility] Jul 04, 2023 01:09 PM VA-TOBACCO USE > 1 5 LESS THAN 30 YEARS [facility] Jul 04, 2023 01:09 PM VA-TOBACCO USE ADVICE [facility] Jul 04, 2023 01:09 PM VA-TOBACCO USE FOOD PRESERVATION SCIENTIST NO [facility] Jul 04, 2023 01:09 PM VA-TOBACCO USE MED NO [facility] Jul 04, 2023 01:09 PM VA-TOBACCO USE WI 30 MIN OF WAKEUP [facility] Jul 04, 2023 01:09 PM VA-TOBACCO USER EVERY DAY [facility] Jul 28, 2022 01:00 PM VA-TOBACCO FORMER USER [facility] Jul 28, 2022 01:00 PM VA-TOBACCO QUIT 15 YRS OR MORE [facility] Jul 13, 2021 01:00 PM VA-TOBACCO DOESNT USE WI 30 MIN WAKEUP [facility] Jul 13, 2021 01:00 PM VA-TOBACCO USE 30 YEARS OR MORE [facility] Jul 13, 2021 01:00 PM VA-TOBACCO USE ADVICE [facility] Jul 13, 2021 01:00 PM VA-TOBACCO USE FOOD PRESERVATION SCIENTIST NO [facility] Jul 13, 2021 01:00 PM VA-TOBACCO USE MED NO [facility] Jul 13, 2021 01:00 PM VA-TOBACCO USER SOME DAYS [facility] May 20, 2020 03:30 PM VA-TOBACCO DOESNT USE WI 30 MIN WAKEUP [facility] May 20, 2020 03:30 PM VA-TOBACCO USE > 1 5 LESS THAN 30 YEARS [facility] May 20, 2020 03:30 PM VA-TOBACCO USE ADVICE [facility] May 20, 2020 03:30 PM VA-TOBACCO USE FOOD PRESERVATION SCIENTIST NO [facility] May 20, 2020 03:30 PM VA-TOBACCO USE MED NO [facility] May 20, 2020 03:30 PM VA-TOBACCO USER SOME DAYS [facility] Jun 26, 2018 11:30 AM VA-TOBACCO FORMER USER [facility] Jun 26, 2018 11:30 AM VA-TOBACCO QUIT 15 YRS OR MORE [facility] Mar 02, 2017 07:35 AM QUIT TOBACCO >7 YEARS AGO [facility] May 25, 2016 05:48 AM CURRENT TOBACCO USER [facility] May 25, 2016 05:48 AM TOBACCO MEDS OFFER ED BUT DECLINED [facility] Jun 23, 2015 02:29 PM QUIT TOBACCO >7 YEARS AGO [facility] Sep 12, 2014 06:15 AM CURRENT TOBACCO USER [facility] Sep 12, 2014 06:15 AM QUIT TOBACCO >7 YEARS AGO [facility] Sep 12, 2014 06:15 AM TOBACCO MEDS OFFER ED BUT DECLINED [facility] Jun 25, 2013 02:47 PM QUIT TOBACCO >7 YEARS AGO [facility] May 04, 2010 12:36 PM LIFETIME NON-USER OF TOBACCO [facility] Jul 30, 2009 11:12 AM CURRENT TOBACCO USER [facility] Mar 20, 2008 01:00 PM CURRENT TOBACCO USER [facility] Mar 20, 2008 01:[address] OP SMOKING CLINIC [facility] Mar 20, 2008 01:00 [facility] Mar 06, 2007 10:38 AM QUIT TOBACCO >7 YEARS AGO [facility] May 09, 2006 09:29 AM CURRENT TOBACCO USER [facility] Aug 27, 2004 10:41 AM CURRENT TOBACCO USER [facility] Aug 27, 2004 10:41 AM SMOKER <10 [facility] Advance Directives: All historical and current [...] Provider Source Oct 21, 2022 FRANKLIN KO [facility] Sep 23, 2004 ADVANCE DIRECTIVE CJ URDOLPH [facility] May 24, 2004 ADVANCE DIRECTIVE MITCH ZEE [facility] May 24, 2000 ADVANCE DIRECTIVE MICHELE CENTENO [facility] Nov 11, 1996 ADVANCE DIRECTIVE MAGGIE DRAKE [facility] December 08, 1995 ADVANCE DIRECTIVE KI SANTOYO [facility] Encounter Notes: All associated encounter notes This section contains the clinical notes associated to the Encounter. Date/Time Encounter Note(s) Provider Source Jul 18, 2024 03:54 PM ORTHOTICS PROSTHET ICS NOTE: LOCAL TITLE: PROSTHETICS FOOT EVALUATION ST STANDARD TITLE: ORTHOTICS PROSTHETICS NOTE DATE OF NOTE: JUL 18, 2024@15:54 ENTRY DATE: JUL 18, 2024@15:54:26 AUTHOR: OMEGA ELI COSIGNER: YONATHAN LINDSAY URGENCY: STATUS: COMPLETED PROSTHETICS FOOT EVALUATION DIAGNOSIS: DM, Fibromyalgia [place]-Filament Test: Jun (within last 30 days) Sensation: Intact Circulation: Pedal Pulses: Posterior Tibial LEFT: Present RIGHT: Present Dorsalis Pedis LEFT: Present RIGHT: Present Hair Present: Yes History of Ulcers/Amputation: No List specific issues below. If none, indicate none below. None ASSESSMENT: Foot Risk Score Level 0 NORMAL RISK - NOT eligible for shoes - DO NOT enter consult request Normal sensation and circulation No deformity No ulceration or history of amputation /los/ OMEGA ELI DNP, CAR SALES CONSULTANT-C, STORAGE BATTERY TESTER NURSE PRACTITIONER RESIDENT Signed: 07/18/2024 15:55 /lso/ MEAGAN Chew NURSE PRACTITIONER Cosigned: 07/18/2024 16:07 OMEGA ELI [facility] Jul 18, 2024 02:11 PM PRIMARY CARE NOTE: LOCAL TITLE: PRIMARY CARE PROVIDER ESTABLISHED VISIT ST STANDARD TITLE: PRIMARY CARE NOTE DATE OF NOTE: JUL 18, 2024@14:11 ENTRY DATE: JUL 18, 2024@14:11:19 AUTHOR: OMEGA ELI EXP COSIGNER: YONATHAN LINDSAY URGENCY: STATUS: COMPLETED PRIMARY CARE PROVIDER ESTABLISHED VISIT ST Has ADDENDA ESTABLISHED PATIENT [id number]: REASON FOR VISIT/CHIEF COMPLAINT: Regularly scheduled PCP follow up HPI: 54 y/o WM in the office for care and management of chronic conditions Hosp/sx/ED/UC visits: Penile pump placed 3-4 months ago, ED for back spasms 5 months ago Current concerns: needs PT consult for chair lift in the house. Pt told by PT he needs an electric w/c to get a chair lift. Cataracts in the right eye, requesting CITC. Goes to [facility] eye for normal eye issues. Pt also asking for acupuncture, states he did BFA w/ minimal relief for back pain. Pt also requesting massage. Pt also requesting additional meds for pain control, states the usual meds have been as of late ineffective. 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 Decreased hearing -Has not gone to audiology as of yet -Difficult to go as he needs assistance w/ transfer driver 3. Right leg contusion/abrasion -Resolved 4. Dental problem -See [facility] dentist -Next appt Sep 24 5. Right eye cataract -Sees outside optometry -Requesting [facility] eye sx if possible --previous [facility] eye consult declined due to pt home location 6. T2DM HGA1C 6.8 H % 12/14/2023 11:57 HGA1C 8.0 H % 09/08/2023 13:43 HGA1C 7.7 H % 05/15/2023 15:37 HGA1C 7.2 H % 01/10/2023 14:51 HGA1C 6.9 H % 04/25/2022 14:43 -bren 3 -taking metformin ER 2g daily, Jardiance 25mg daily, Ozempic 2mg weekly, glipizide 2.5mg daily -Pt not dieting, drinks pop and eats carb heavy foods --Pt states trying to minimize intake -followed by [place] [facility] 7. Rash -Resolved 8. HLD - controlled TRIGLYCERIDE 373 H mg/dL 02/23/2024 11:19 CHOLESTEROL 153 mg/dL 02/23/2024 11:19 HDL(New) 37 L mg/dL 02/23/2024 11:19 DIRECT LDL 64 L mg/dL 02/23/2024 11:19 CALCULATED LDL comment mg/dL 02/23/2024 11:19 -Taking ezetimibe 10mg daily -Trying to follow a low fat low cholesterol diet 9. HTN -stable -DASH diet -doesn't monitor it at home 10. Vit D deficiency - stable VITAMIN D, 25-HYDROXY 44.3 ng/mL 12/14/2023 11:57 VITAMIN D, 25-HYDROXY 48.2 ng/mL 01/10/2023 14:51 VITAMIN D, 25-HYDROXY 39.0 ng/mL 04/01/2022 12:43 -Taking Vit D supp 11. Constipation -Improving -Taking docusate -miralax PRN -fiber in diet and water intake -followed by [place] [facility] 12. Elevated LFTs/hyperammoniemia -Pt endorses hallucinations on occassion, concerned for a reincrease of ammonia -Pt denies ETOH intake -followed by [place] [facility] 13. Posttraumatic stress disorder/Psychogenic nonepileptic form seizures/ Adjustment disorder with mixed disturbance of emotions and conduct -Taking prazosin 6 mg nightly, trazodone 200 mg at bedtime for insomnia -mood stable -followed by [facility] 14. Back pain/knee pain/decreased mobility/fibromyalgia -Continued pain -[place] acupuncture ineffective --requesting full on accupuncture -Also requesting massage -Requesting additional meds for pain control, states the usual meds have been as of late ineffective. -followed by [place] pain pharm SOURCE(S) OF HISTORY: Patient [place] records reviewed and summarized PAST MEDICAL HISTORY: 1) Abnormal results of liver function studies 2) Diverticulitis comment: S/P PARTIAL COLECTOMY 11/03 3) Erectile dysfunction 4) Obesity 5) Chest pain 6) Sensory-neural hearing loss 7) Back pain (SNOMED CT 887459978) 8) Benign hypertension (SNOMED CT 19388881) 9) Convulsion comment: nonepilepstic psychogenic 10) Male hypogonadism 11) Conversion disorder (SNOMED CT [id number]) 12) Testicular hypofunction 13) Osteoarthritis of right knee joint 14) Diabetes mellitus 15) Turk's esophagus comment: EGD 05/2022 negative for Turk's Esophagus comment: seen in 2002 EGD 16) Hyperlipidemia 17) Syncope 18) Obstructive sleep apnea 19) QUIJANO - Nonalcoholic steatohepatitis 20) Hematuria 21) At risk for falls 22) Vitamin D deficiency 23) Debility 24) Adjustment disorder with mixed disturbance of emotions AND conduct 25) Restrictive lung disease comment: PFT 09/01/21 26) Cannabis misuse 27) Chronic fatigue syndrome comment: per recent IISC evalation in 03/2022. 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 Handwritten corrections, additions and/or deletions were made to the list. Corrected Outpatient Medication List was provided to the patient/caregiver. Active Outpatient Medications (including Supplies): Active Outpatient Medications Status 1) ALBUTEROL 90MCG (CFC-F) 200D ORAL INHL INHALE 2 PUFFS BY ACTIVE ORAL INHALATION FOUR TIMES A DAY NEEDED FOR BREATHING. SHAKE WELL. RINSE MOUTHPIECE FREQUENTLY TO PREVENT CLOGGING. 2) BETAMETHASONE DIPROPIONATE 0.05% OINT APPLY LIGHTLY TO ACTIVE AFFECTED AREA(S) THREE TIMES A DAY (EXTERNAL USE ONLY) 3) CETIRIZINE HCL 10MG TAB TAKE ONE TABLET BY MOUTH ONCE A DAY ACTIVE (S) Indication: FOR ALLERGY SYMPTOMS 4) CHOLECALCIF 50MCG (D3-2,000UNIT) TAB TAKE TWO TABLETS BY ACTIVE MOUTH ONCE A DAY FOR VITAMIN D DEFICIENCY. 5) CPD-NALTREXONE 3MG (LOW DOSE) CAP TAKE 1 CAPSULE BY MOUTH ACTIVE (S) ONCE A DAY Indication: FOR FIBROMYALGIA 6) CYANOCOBALAMIN 100MCG TAB TAKE ONE TABLET BY MOUTH ONCE A ACTIVE DAY FOR B12 SUPPLEMENTATION 7) CYCLOBENZAPRINE HCL 10MG TAB TAKE ONE TABLET BY MOUTH THREE ACTIVE TIMES A DAY NEEDED MAY CAUSE DROWSINESS. DO NOT DRINK ALCOHOL WHILE TAKING THIS MEDICATION. Indication: FOR MUSCLE SPASM 8) DEXTROSE 24GM/31GM SQUEEZE TUBE TAKE 1 TUBE BY MOUTH ONCE A ACTIVE DAY NEEDED REPEAT DOSE IF HYPOGLYCEMIA CONTINUES 15 MINUTES AFTER THE FIRST DOSE. Indication: FOR LOW BLOOD SUGAR 9) DICLOFENAC NA 1% TOP GEL APPLY [...] FOR LOOSE STOOL/DIARRHEA. Indication: FOR SOFTENING STOOL 11) DRESSING,POLYSKIN II 2 X 2.75IN JEFFERY#[id number] USE/APPLY ACTIVE DRESSING(S) TO AFFECTED AREA(S) DIRECTED Indication: FOR USE WITH GLUCOSE SENSOR 12) DULOXETINE HCL 30MG EC CAP TAKE ONE CAPSULE BY MOUTH ONCE A ACTIVE DAY DO NOT ABRUPTLY DISCONTINUE MEDICATION. Indication: FOR PTSD/MOOD/ANXIETY/PAIN 13) EMPAGLIFLOZIN 25MG TAB TAKE ONE TABLET BY MOUTH ONCE A DAY ACTIVE 14) EZETIMIBE 10MG TAB TAKE ONE TABLET BY MOUTH ONCE A DAY TO ACTIVE (S) LOWER CHOLESTEROL 15) GLIPIZIDE 5MG TAB TAKE ONE TABLET BY MOUTH TWO TIMES A DAY ACTIVE BEFORE MEALS TAKE 30 MINUTES BEFORE EATING. Indication: FOR DIABETES 16) GLUCOSE SENSOR FREESTYLE BREN 3 PLUS USE SENSOR EVERY 15 ACTIVE DAYS Indication: FOR BLOOD GLUCOSE MONITORING 17) LIDOCAINE 5% PATCH APPLY 1 PATCH TO SKIN SITE NIGHTLY ACTIVE NEEDED . MAY USE 1-3 PATCHES. PATCHES MAY BE CUT TO FIT ONTO FEET. APPLY PATCH AND PRESS FIRMLY FOR 10-15 SECONDS. KEEP ON FOR 12 HOURS THEN REMOVE PATCH FOR 12 HOURS. Indication: FOR PAIN 18) METFORMIN HCL 500MG 24HR SA TAB TAKE FOUR TABLETS BY MOUTH ACTIVE ONCE A DAY FOR BLOOD SUGAR CONTROL. TAKE WITH FOOD. AVOID ALCOHOL. DISCONTINUE BEFORE GETTING XRAY DYE. 19) POLYETHYLENE GLYCOL 3350 ORAL PWDR MIX AND DRINK 1 CAPFUL BY ACTIVE MOUTH ONCE A DAY NEEDED (MEASURE WITH CAP AND MIX IN 8 OZ OF WATER) Indication: FOR CONSTIPATION 20) PRAZOSIN HCL 2MG CAP TAKE THREE CAPSULES BY MOUTH AT BEDTIME ACTIVE MAY CAUSE DIZZINESS OR DROWSINESS. Indication: FOR NIGHTMARES 21) PREGABALIN 100MG ORAL CAP TAKE TWO CAPSULES BY MOUTH EVERY ACTIVE MORNING AND TAKE THREE CAPSULES EVERY EVENING *MAY CAUSE DROWSINESS* Indication: FOR FIBROMYALGIA 22) SEMAGLUTIDE 2MG/0.75ML INJ PEN 3ML INJECT 2MG UNDER THE SKIN ACTIVE EVERY WEEK Indication: FOR DIABETES 23) SODIUM CHLORIDE 0.65% SOLN NASAL SPRAY USE 1 SPRAY INTO ACTIVE NOSTRIL(S) EVERY 4 HOURS NEEDED Indication: FOR NASAL CONGESTION 24) TRAZODONE HCL 100MG TAB TAKE TWO TABLETS BY MOUTH AT BEDTIME ACTIVE (S) Indication: FOR DEPRESSION Active Non-VA Medications Status 1) Non-VA TRIAMCINOLONE ACETONIDE 0.025% CREAM SPARINGLY TO ACTIVE AFFECTED AREA(S) TWICE A DAY Indication: FOR ATOPIC DERMATITIS 25 Total Medications DATA REVIEW: HGA1C 6.8 H % 12/14/2023 11:57 Lipid Panel: TRIGLYCERIDE 373 H mg/dL 02/23/2024 11:19 CHOLESTEROL 153 mg/dL 02/23/2024 11:19 HDL(New) 37 L mg/dL 02/23/2024 11:19 DIRECT LDL 64 L mg/dL 02/23/2024 11:19 CALCULATED LDL comment mg/dL 02/23/2024 11:19 CMP: SODIUM 139 mEq/L 04/08/2024 15:28 POTASSIUM 4.3 [...] 15:28 EGFR (CKD-EPI 2020) 50.6 04/08/2024 15:28 CBC: WBC 7.3 10*3/uL 04/08/2024 15:28 RBC 5.23 10*6/uL 04/08/2024 15:28 HGB 16.6 g/dL 04/08/2024 15:28 HCT 47.8 % 04/08/2024 15:28 MCV 91.4 fL 04/08/2024 15:28 MCH 31.7 pg 04/08/2024 15:28 MCHC 34.7 g/dL 04/08/2024 15:28 RDW 13.3 % 04/08/2024 15:28 PLT 164 10*3/uL 04/08/2024 15:28 MPV 9.8 fL 04/08/2024 15:28 NEUTROPHILS, AUTO % 67 % 04/08/2024 15:28 LYMPHOCYTES, AUTO % 24 % 04/08/2024 15:28 MONOCYTES, AUTO % 6 % 04/08/2024 15:28 EOSINOPHILS, AUTO % 2 % 04/08/2024 15:28 BASOPHILS, AUTO % 0 % 04/08/2024 15:28 NEUTROPHILS, ABSOLUTE 4.91 10*3/uL 04/08/2024 15:28 LYMPHOCYTES, ABSOLUTE 1.78 10*3/uL 04/08/2024 15:28 MONOCYTES, ABSOLUTE 0.46 10*3/uL 04/08/2024 15:28 EOSINOPHILS, ABSOLUTE 0.11 10*3/uL 04/08/2024 15:28 BASOPHILS, ABSOLUTE 0.03 10*3/uL 04/08/2024 15:28 PSA: PROST. SPECIFIC AG.(PB-STL) 0.388 ng/mL 05/15/2023 15:37 Result: Acceptable Follow-up Action: Re check prior to next visit. Data results reviewed with patient and/or caregiver. REVIEW OF SYSTEMS: All systems reviewed and otherwise negative unless noted in HPI REVIEW OF SYSTEMS: General: Denies fever or chills, weight loss or weight gain. Eyes: Denies blurry or double vision. Ears, Nose, Mouth, Throat: Denies hearing loss, nasal drainage or sore throat. Denies dizziness. Endo: Denies heat or cold intolerance, polydipsia, polyuria, or polyphagia. Cardiovascular: Denies CP, palpitations, or dizziness. Respiratory: Denies cough or SOB. ABD/GI: Denies abd pain, N/V/D, constipation. Musculoskeletal/Extremities : Denies pain. Denies edema. /GRAIN MIXER: Denies frequency, hesitancy, urgency, or hematuria. Psych: Denies depression, anxiety, insomnia, SI/HI. Neuro: Denies ALDRIDGE, tremors, neuropathy, or seizures. Skin: Denies rashes, skin lesions. VITALS Temperature: 97.7 F [36.5 C] (07/18/2024 13:55) BP: 140/78 (07/18/2024 14:04) Pulse: 76 (07/18/2024 13:55) Resp: 16 (07/18/2024 13:55) PulsOx: 97% (07/18/2024 13:55) Pain: 7 (07/18/2024 13:55) Weight: Measurement DT WEIGHT LB(KG)[BMI] 07/18/2024 13:55 281(127.46)[38*] 06/14/2024 12:23 288.3(130.77)[39*] 05/31/2024 10:29 282.3(128.05)[38*] PHYSICAL EXAM Gen: Patient pleasant, appears adequately nourished, appropriately dressed, well-groomed HEENT: Normocephalic; PERRLA, EOM, sclera white, cornea clear, conjunctiva pink. TM pearly chiu, + light reflex. Throat without erythema or exudate Neck: supple, no lymphadenopathy, no thyroidmegaly, or carotid bruits Lungs: Lungs CTA, normal RR, no increased WOB noted Heart: RRR S1S2-m/r/g Abdomen: soft, non-tender, no hepatosplenomegaly, BS pos X4 Neuro: A+OX4, no focal deficits, ambulates with steady gait : deferred Psych: good affect, denies si/hi Ext: no edema, + pedal pulses Skin: warm and dry, normal color for race, no rashes or skin lesions. ASSESSMENT/PLAN: LABS: 1. 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 Decreased hearing -Has not gone to audiology as of yet -Difficult to go as he needs assistance w/ transfer driver -Pt to contact audiology to make appt 3. Right leg contusion/abrasion -Resolved -Continue to monitor, notify the office w/ changes 4. Dental problem -See [facility] dentist -Next appt Sep 24 --F/U as scheduled 5. Right eye cataract -Sees outside optometry -Requesting [facility] eye sx if possible --previous [facility] eye consult declined due to pt home location -Ophtalmology consult placed for pt to discuss fixing catarct issue and potential for CITC if able 6. T2DM HGA1C 6.8 H % 12/14/2023 11:57 HGA1C 8.0 H % 09/08/2023 13:43 HGA1C 7.7 H % 05/15/2023 15:37 HGA1C 7.2 H % 01/10/2023 14:51 HGA1C 6.9 H % 04/25/2022 14:43 -bren 3 -Continue metformin ER 2g daily, Jardiance 25mg daily, Ozempic 2mg weekly, glipizide 2.5mg daily -Pt not dieting, drinks pop and eats carb heavy foods --Pt states trying to minimize intake -Discussed change of diet to a low carb one -Discussed minimizing intake of pop and other sugar laden drinks -A1C ordered -Diabetic inserts/shoes ordered -Continue F/U by [facility] -Pt to contact Endocrine to make appt --Number given 7. Rash -Resolved -Continue to monitor, notify the office w/ changes 8. HLD - controlled TRIGLYCERIDE 373 H mg/dL 02/23/2024 11:19 CHOLESTEROL 153 mg/dL 02/23/2024 11:19 HDL(New) 37 L mg/dL 02/23/2024 11:19 DIRECT LDL 64 L mg/dL 02/23/2024 11:19 CALCULATED LDL comment mg/dL 02/23/2024 11:19 -Continue ezetimibe 10mg daily -Continue to follow a low fat low cholesterol diet -Discussed exercise w/ stationary foot pedal device 9. HTN -stable -DASH diet -Pt to start monitoring at home 10. Vit D deficiency - stable VITAMIN D, 25-HYDROXY 44.3 ng/mL 12/14/2023 11:57 VITAMIN D, 25-HYDROXY 48.2 ng/mL 01/10/2023 14:51 VITAMIN D, 25-HYDROXY 39.0 ng/mL 04/01/2022 12:43 -Continue Vit D supp 11. Constipation -Improving -Continue docusate -Continue Miralax PRN -Continue to increase fiber in diet and water intake -Continue F[facility] --Pt to call and make appt 12. Elevated LFTs/hyperammoniemia -Pt endorses hallucinations on occassion, concerned for a reincrease of ammonia -Pt denies ETOH intake -LFTs and ammonia level ordered -Continue F/U w/ [facility] --Pt to call and make appt 13. Posttraumatic stress disorder/Psychogenic nonepileptic form seizures/ Adjustment disorder with mixed disturbance of emotions and conduct -Taking prazosin 6 mg nightly, trazodone 200 mg at bedtime for insomnia -mood stable -Continue F/U [facility]/ [facility] 14. Back pain/knee pain/decreased mobility/fibromyalgia -Continued pain -[place] acupuncture ineffective -requesting full on accupuncture --Consult placed -Also requesting massage --Consult placed -Continue all prescribed pain medications and muscle relaxers -PT consult placed for back pain -Tylenol 650mg QID ordered for pain -followed by [facility] -Continue F/U w/ pain pharm PREVENTION & SCREENING: Colonoscopy: Prog Note DT Title Author Last Princess DT 06/13/2022 COLONOSCOPY CONSULT REPORT JESSICA RODRIGUEZ SLT - Lab Tests Selected No selection items chosen for this component. AAA: No data available for: US ABD AORTA (AAA) US ABD AORTA SCREENING(AAA) US AAA SCREENING US ABDOMEN AORTA (AAA), LIMITED Impression for US ABDOMEN LTD, SINGLE ORG OR QUADRANT, 01/15/24, case [id number] 1. Hepatic steatosis. 2. No evidence of cholelithiasis or cholecystitis. Report dictated by Lucien Webster (residential service technician) I, Jama Luna, have reviewed the images and report and concur with these findings. LDCT: LOW DOSE CHEST CT No data available for: ZZLDCT LUNG CANCER SCREENING No data available for: LDCT LCS 1, 3 OR 6 MONTH FOLLOW UP ZZLDCT LUNG CANCER SCREENING LDCT LUNG CANCER SCREENING No selection items chosen for this component. PSA: Collection DT Specimen Test Name Result Units Ref Range 05/15/2023 15:37 SERUM PSA 0.388 ng/mL 0.000 - 4.000 Comment: The listed sex of this patient may not be a typical Comment: indication for this test. Therefore, reference ranges or Comment: interpretive criteria listed may not be valid. Clinical correlation Comment: suggested. 04/25/2022 14:44 SERUM PSA 0.578 ng/mL 0.000 - 4.000 Comment: The listed sex of this patient may not be a typical Comment: indication for this test. Therefore, reference ranges or Comment: interpretive criteria listed may not be valid. Clinical correlation Comment: suggested. 04/09/2021 12:43 SERUM PSA 0.719 ng/mL 0.000 - 4.000 08/06/2019 11:19 SERUM PSA 0.441 ng/ml 0.001 - 4 03/02/2018 09:58 SERUM PSA 0.455 ng/ml 0.001 - 4 03/02/2017 16:02 SERUM PSA 0.811 ng/ml 0.001 - 4 03/02/2016 12:09 SERUM PSA 0.715 ng/ml 0.001 - 4 11/27/2015 10:31 SERUM PSA 0.830 ng/ml 0.001 - 4 09/12/2014 10:24 SERUM PSA 0.605 ng/ml 0.001 - 4 09/11/2013 15:21 SERUM PSA 0.599 ng/ml 0.001 - 4 10/17/2012 13:44 SERUM PSA 0.579 ng/ml 0 - 4 09/07/2011 13:40 SERUM PSA 0.915 ng/ml 0 - 4 01/07/2011 11:41 SERUM PSA 0.734 ng/ml 0 - 4 08/07/2009 12:01 SERUM PSA 0.710 ng/ml 0 - 4 12/18/2007 15:43 SERUM PSA 0.605 ng/ml 0 - 4 03/24/2000 12:55 SERUM PSA 0.5 ng/ml 0 - 4 [facility] Bone Density No data available for: NM BONE DENSITY(DXA), AXIAL SKELETON BONE DENSITY (RAD) -P BONE DENSITY-P LAB SURGICAL PATHOLOGY Collected: 04/19/2024 16:12Acc:SALLY [id number] Surgeon/Physician: CHARLOTTE GENAO Specimen: A. PENILE SKIN BIOPSY Gross Description: (Melisa, 04-19-2024) The specimen is received in formalin, in a container labeled with the patient's name, full SSN and designated penile skin . It consists of peng pink red tissue fragments that measure 0.2 and 0.3 cm in greatest diameter. It is submitted entirely in cassette A1. Microscopic Exam: (Melisa) Microscopic examination of the sections submitted [...] histochemical stain has been reviewed and accepted. Surgical Path Dx: PENILE SKIN, BIOPSY: ACANTHOSIS AND PARAKERATOSIS FOCAL ACTIVE CHRONIC INFLAMMATION FUNGAL ELEMENTS PRESENT PCE HEALTH FACTORS SELECTED No data available for: Women's Health Outside Abnormal (Ascus) Pap Women's Health Outside Abnormal (Other) Pap Women's Health Outside Normal Pap Immunizations ADMINISTERED Immunization Series Date Facility Reaction Info COVID-19 (PFIZER), MRNA, LNP-S, * 2 10/26/[address] [facility]* <C> COVID-19 (PFIZER), MRNA, LNP-S, * 1 10/07/[address] [facility]* <C> INFLUENZA (HISTORICAL) 05/22/1997 [facility] PNEUMOCOCCAL, UNSPECIFIED FORMUL* 11/23/2011 [facility] REFUSED PNEUMOVAX (HISTORICAL) 11/12/2004 [facility] TDAP 12/18/2007 [facility] <C> CONTRAINDICATED Immunization Date Facility Info INFLUENZA, UNSPECIFIED FORMULATI* 10/06/2023 [facility] <I> REFUSED ======= Immunization Date Facility Info COVID-19 (MODERNA), MRNA, LNP-S,* 07/28/2022 [facility] <I> COVID-19 (PFIZER), MRNA, LNP-S, * 01/27/2023 [facility] <I> COVID-19 (PFIZER), MRNA, LNP-S, * 10/27/2022 [facility] <I> COVID-19 (PFIZER), MRNA, LNP-S, * 07/28/2022 [facility] <I> COVID-19 (PFIZER), MRNA, LNP-S, * 11/14/2023 [facility] <I> COVID-19 (PFIZER), MRNA, LNP-S, * 10/06/2023 [facility] <I> COVID-19 (PFIZER), MRNA, LNP-S, * 05/15/2023 [facility] <I> INFLUENZA, UNSPECIFIED FORMULATI* 11/14/2023 [facility] <I> INFLUENZA, UNSPECIFIED FORMULATI* 10/24/2023 [facility] <I> INFLUENZA, UNSPECIFIED FORMULATI* 10/06/2023 [facility] <I> INFLUENZA, UNSPECIFIED FORMULATI* 05/15/2023 [facility] <I> INFLUENZA, UNSPECIFIED FORMULATI* 10/27/2022 [facility] <I> INFLUENZA, UNSPECIFIED FORMULATI* 07/28/2022 [facility] <I> PNEUMOCOCCAL CONJUGATE, UNSPECIF* 01/15/2024 [facility] <I> PNEUMOCOCCAL CONJUGATE, UNSPECIF* 11/14/2023 [facility] <I> PNEUMOCOCCAL CONJUGATE, UNSPECIF* 10/06/2023 [facility] <I> PNEUMOCOCCAL CONJUGATE, UNSPECIF* 05/15/2023 [facility] <I> PNEUMOCOCCAL CONJUGATE, UNSPECIF* 01/27/2023 [facility] <I> PNEUMOCOCCAL CONJUGATE, UNSPECIF* 10/27/2022 [facility] <I> PNEUMOCOCCAL CONJUGATE, UNSPECIF* 07/28/2022 [facility]* <I> TD(ADULT) UNSPECIFIED FORMULATION 11/14/[address] [facility]* <I> TD(ADULT) UNSPECIFIED FORMULATION 10/06/2023 [facility] <I> TD(ADULT) UNSPECIFIED FORMULATION 05/15/2023 . [facility]* <I> TD(ADULT) UNSPECIFIED FORMULATION 01/27/2023 . [facility]* <I> TD(ADULT) UNSPECIFIED FORMULATION 10/27/2022 . [facility]* <I> TD(ADULT) UNSPECIFIED FORMULATION 07/28/[address] [facility]* <I> ZOSTER RECOMBINANT 01/15/[address] [facility]* <I> ZOSTER RECOMBINANT 11/14/[address] [facility]* <I> ZOSTER RECOMBINANT 10/06/2023 . [facility]* <I> ZOSTER RECOMBINANT 05/15/[address] [facility]* <I> ZOSTER RECOMBINANT 01/27/[address] [facility]* <I> ZOSTER RECOMBINANT 10/27/[address] [facility]* <I> ZOSTER RECOMBINANT 07/28/2022 . [facility]* <I> <C> See the Detailed Immunizations Health Summary Component[DIM] for Comments <I> See the Detailed Immunizations Health Summary Component[DIM] for Additional Information * Value is truncated; see the Detailed Immunizations Health Summary Component[DIM] for complete text RETURN TO CLINIC: Return to Clinic order placed SUMMARY STATEMENT: Plan of care has been discussed with including expected therapeutic benefits and potential side effects of prescribed medication and treatments. [place] verbalizes understanding and is in agreement with the plan of care. Patient was instructed to keep all scheduled appointments and contact quality manager for any additional problems. THE SUPERVISING PHYSICIAN FOR THIS PATIENT ENCOUNTER IS MEAGAN Fallon HTN Assess for Elevated BP>=140/90 - N,P,PH: Repeat blood pressure: 136/72 The patient's blood pressure is usually adequately controlled. No medication changes are indicated at this time. PAVE Foot Check - L,N,P,PH,PO,PT,U: A complete foot check was completed at this encounter. VISUAL INSPECTION: Includes inspection for skin breaks, deformity, erythema, trauma, pallor on elevation, dependent rubor, nail deformities, extensive callus and pitting edema. Visual exam results: Normal PEDAL PULSES: Includes palpation of dorsalis and posterior tibial pulses and signs/symptoms of vascular compromise like pain, pallor, parasthesia or paralysis. Present (even if diminished) SENSORY CHECK: Includes 10 gram Monofilament (Arbon-Luiz) test of sensation. Intact (Greater than or equal to 80% of sites checked) Abnormal (Less than 80% of sites checked): Intact LOW-RISK: LOW RISK INFORMATION PROVIDED: 1. Advised patient not to walk barefoot. 2. Explained the importance of daily foot checks for changes. 3. Stressed the importance of daily foot hygiene, including bathing and complete drying. Assess Statin Use - Lipids (CVD/DM) - N,P,PH: The patient is already on a statin. The patients prescription for a statin was reviewed and updated. Diabetes: Kidney Health Evaluation - N,P,PH: Last eGFR: Most recent eGFR within past 12 months No data available for: uACR (PB-MA) URINE ALBUMIN (MA) URINE ALBUMIN (PB-STL) MICROALBUMIN-RU (PB-sendout) Collection DT Specimen Test Name Result Units Ref Range 04/08/2024 15:28 PLASMA EGFR (CKD-EPI 202 50.6 Ref: >=60 Comment: ~For Test: BASIC METABOLIC PANEL Comment: ~pre-op Last uACR: Most recent uACR/MicroAlbumin within past 12 months No data available for: uACR (PB-MA) URINE ALBUMIN (MA) URINE ALBUMIN (PB-STL) MICROALBUMIN-RU (PB-sendout) Collection DT Specimen Test Name Result Units Ref Range 04/08/2024 15:28 PLASMA EGFR (CKD-EPI 202 50.6 Ref: >=60 Comment: ~For Test: BASIC METABOLIC PANEL Comment: ~pre-op uACR (Urine Albumin-Creatinine Ratio) Quantitative urine creatinine and quantitative urine albumin lab tests were ordered. Tobacco Use Follow-Up - - AT,DE,M,N,P,PH,PS,RT,S: Patient was advised to stop smoking and/or using other tobacco products. ---Pt doesn't smoke or has been for years Advised patient that a combination of behavioral counseling and FDA-approved cessation medications is the most effective way to ensure their success in stopping to smoke and/or using other tobacco products. The patient was not interested in additional information about behavioral counseling and other support strategies discussed. Informed patient that medications can help with cravings and withdrawal symptoms, and they greatly increase the chances of successfully stopping your tobacco use. The patient was not interested in a prescription for tobacco cessation medications. /los/ OMEGA ELI DNP, YENI, STORAGE BATTERY TESTER NURSE PRACTITIONER RESIDENT Signed: 07/18/2024 15:46 /los/ MEAGAN Chew NURSE PRACTITIONER Cosigned: 07/18/2024 15:47 07/18/2024 ADDENDUM STATUS: COMPLETED I have seen this with the PUMP TECHNICIAN resident. I have participated in developing the plan of care, and reviewed medications, lab, and any radiology reports. The concurs with the plan of care. /los/ MEAGAN Chew NURSE PRACTITIONER Signed: 07/18/2024 15:47 OMEGA ELI [facility] Jul 18, 2024 01:58 PM NURSING NOTE: LOCAL TITLE: V15 PACT FACE TO FACE NOTE STL STANDARD TITLE: NURSING NOTE DATE OF NOTE: JUL 18, 2024@13:58 ENTRY DATE: JUL 18, 2024@13:58:22 AUTHOR: KONSTANTIN LIVE EXP COSIGNER: URGENCY: STATUS: COMPLETED Provider Visit: Patient Identifiers : Full Name Date of Reason for visit: Established Follow-Up multiple issues Mode of Arrival: Assistive Device: single point cane Allergy Review: NIACIN, SIMVASTATIN, COREG 25MG TABLET, PRAVASTATIN, SHRIMP, ATORVASTATIN ROSUVASTATIN, LOVASTATIN, PITAVASTATIN Allergy list reviewed and remains current. 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 Be with and daughter. 10/17/2019 Personal Health Plan [place], [place] (MAP) My family and outdoors What matters most to you in your life right now? -- [place]'s Response: the lady to my right and family Would you like to discuss any personal problem, family problem, alcohol use, drug use, or a mental or emotional illness? No My [facility] ([facility]), please select appointment type: Face to face: Yes-Do you have an upgraded (Premium) account which gives you the added benefit of Secure Messaging with your Primary Care Provider and refilling your prescriptions online? Yes- Done Contact provided Primary Care phone number and encouraged to call if any questions or concerns. Review that after hours nurse line [phone] and emergency room are available 20/02 for patient use. Contact verbalized good understanding. Tobacco Use Screening - AT,DE,L,M,N,P,PH,PS,RT,S,U: The patient has never smoked cigarettes. The patient uses other type(s) of tobacco some days. Other Tobacco Type(s) used: Smokeless tobacco (e.g., dip, chew, snuff, snus) /los/ KONSTANTIN LIVE LPN LICENSED PRACTICAL NURSE Signed: 07/18/2024 14:03 KONSTANTIN LIVE [facility]
--- OUTSIDE RECORDS SUMMARY | 2024-11-30 15:25 | XMS_ITS | Encounter Summary ---
Author Name [facility] Organization [facility] Address [address] [place] [address] Care Team Providers Care Dynamic Etching Processor Name Role Phone YONATHAN LINDSAY Primary Care Provider OMEGA Bethea Unavailable Unavailable Selected Encounter This section includes the information on record at [place] for the Encounter. Date/Time Encounter Type Encounter Description Reason Pro vider Source Feb 02, 2024 12:43 PM Outpatient Encounter GENERAL INTERNAL MEDICINE I[facility] Encounter Template Text not used by [place] Plan of Treatment: Future Appointments (+ 6 months) and Future Tests (+/- 45 days) The Plan of Treatment section includes future care activities for the patient from all [place] treatmentfacilities. This section includes future appointments and future orders which are active, pending or scheduled. Future Appointments This section includes appointments that were scheduled to occur 6 months from the date of the Encounter, up to a maximum of 20 appointments. The data comes from all [place] treatment facilities. Appointment Date/Time Appointment Type Appointme nt Facility Name Feb 08, 2024 01:30 PM AMBULATORY - NONE [facility] Feb 13, 2024 10:00 AM AMBULATORY - NONE [facility] Feb 15, 2024 10:00 AM AMBULATORY - MEDICINE [facility] Feb 19, 2024 11:00 AM AMBULATORY - NONE . [facility] Feb 23, 2024 10:30 AM AMBULATORY - MEDICINE [facility] Feb 26, 2024 03:00 PM AMBULATORY - MEDICINE [facility] Mar 05, 2024 03:00 PM AMBULATORY - PSYCHIATRY [facility] Mar 08, 2024 01:00 PM AMBULATORY - PSYCHIATRY [facility] Mar 26, 2024 03:00 PM AMBULATORY - PSYCHIATRY [facility] Apr 03, 2024 11:00 AM AMBULATORY - MEDICINE [facility] Apr 08, 2024 02:00 PM AMBULATORY - SURGERY . [facility] Apr 09, 2024 01:00 PM AMBULATORY - NONE [facility] Apr 19, 2024 10:00 AM AMBULATORY - NONE [facility] Apr 23, 2024 03:00 PM AMBULATORY - MEDICINE [facility] Apr 29, 2024 01:00 PM AMBULATORY - NONE [facility] Apr 30, 2024 03:00 PM AMBULATORY - PSYCHIATRY [facility] May 03, 2024 10:30 AM AMBULATORY - SURGERY [facility] May 21, 2024 01:00 PM AMBULATORY - PSYCHIATRY [facility] May 31, 2024 10:30 AM AMBULATORY - SURGERY [facility] Jun 05, 2024 09:30 AM AMBULATORY - NONE [facility] Active, Pending, and Scheduled Orders This section includes a listing of several types of active, pending, and scheduled orders, including clinic medications orders, diagnostic test orders, procedure orders and consult orders; where the start date of the order is 45 days before the date of the Encounter or 45 days after the date of theEncounter. The data comes from all [place] treatment facilities. Test Date/Time Test Type Test Details Facility Name December 19, 2023 12:00 AM Laboratory - Chemistry Order ALPHA-1 ANTITRYPSIN (STL) GREEN LI/HEP BLD/PLAS PLASMA SP [facility] December 19, 2023 12:00 AM Laboratory - Chemistry Order ACTIN (SMOOTHMUSCLE) ANTIBODY IGG GOLD/RED SST SERUM SP [facility] December 19, 2023 12:00 AM Laboratory - Chemistry Order ANTI-MITOCHONDRIAL AB (STL) GOLD/RED SST SERUM SP [facility] December 19, 2023 12:00 AM Laboratory - Chemistry Order CERULOPLASMIN (STL-PB) GOLD/RED SST SERUM SP [facility] Lab Results: +/- 30 days of the encounter This section includes the Chemistry and Hematology Lab Results on record with [place] for the patient. Radiology Reports and Pathology Reports are provided separately, in subsequent sections. Lab Results This section contains the Chemistry/Hematology Results that were resulted 30 days before or 30 daysafter the date of the Encounter. Date/Time Source Result Type Result - Unit Interpretation Reference Range Specimen Type Comment Feb 23, 2024 11:19 AM [facility] PT/INR NEW (L-MA) PLASMA Specimen Type: PLASMA No comment entered. Ordering Provider: NIKA SANCHEZ Report Released Date/Time: Feb 23, 2024 10:51 AM Reporting Lab: [place] [address] [facility] [address] Performing Lab: [facility] [address] [facility] [address] PROTIME 12.2 s 9.4-12.5 INR VALUE 1.1 {INR} Feb 23, 2024 11:19 AM [facility] CONJ. BILIRUBIN PLASMA Specimen Type: PLASM A Comment: LDL Unable to be calculated LDL calculation invalid when Triglyceride exceeds 250 mg/dl Ordering Provider: NIKA SANCHEZ Report Released Date/Time: Feb 23, 2024 10:51 AM Reporting Lab: [facility] [address] [facility] [address] Performing Lab: [facility] [address] [facility] [address] CONJ. BILIRUBIN 0.2 mg/dL 0-0.5 Feb 23, 2024 11:19 AM [facility] LIPID PANEL (STL) PLASMA Specimen Type: PLASM A Comment: LDL Unable to be calculated LDL calculation invalid when Triglyceride exceeds 250 mg/dl Ordering Provider: NIKA SANCHEZ Report Released Date/Time: Feb 23, 2024 10:51 AM Reporting Lab: [address] [address] Performing Lab: [address] [address] CHOLESTEROL 153 mg/dL 0-200 TRIGLYCERIDE 373 mg/dL H 0-150 DIRECT LDL 64 mg/dL L >100 CALCULATED LDL comment mg/dL HDL(New) 37 mg/dL L >40 Feb 23, 2024 11:19 AM [facility] COMPREHENSIVE METABOLIC PANEL PLASMA Specimen Type: PLASMA Comment: LDL Unable to be calculated LDL calculation invalid when Triglyceride exceeds 250 mg/dl Ordering Provider: NIKA SANCHEZ Report Released Date/Time: Feb 23, 2024 10:51 AM Reporting Lab: [address] [address] Performing Lab: [address] [address] CREATININE 0.85 mg/dL 0.7-1.3 UREA NITROGEN 14.4 [...] 102.6 >60 Feb 23, 2024 11:19 AM [facility] CBC BLOOD Specimen Type: BLOOD No comment entered. Ordering Provider: NIKA SANCHEZ Report Released Date/Time: Feb 23, 2024 10:51 AM Reporting Lab: [address] [address] Performing Lab: [address] [address] WBC 7.1 10*3/uL 3.6-11.2 RBC 5.10 10*6/uL [...] and tobacco- related health factors from the [place] facility where the Encounter took place. Current Smoking Status This section includes the most current smoking, or tobacco-related health factor, from the [place] facility where the Encounter took place. Date/Time Current Smoking Status Comment Facility May 26, 2000 01:36 PM CURRENT NON-TOBACC O USER-HX OF USE stop smoking 10yrs ago,started smoking at 14yrs,smoked 2packs a day [facility] Tobacco Use History This section includes a history of the smoking, or tobacco-related health factors, that were collected on or before the date of the Encounter. The data comes from the [place] facility where the Encounter took place. Date/Time Smoking Status/Tobacco Use Comment F acility Mar 07, 2000 12:35 PM CURRENT NON-TOBACC O USER-HX OF USE [facility] Advance Directives: All historical and current Section Date Range: From patient's date of to the date document was created. This section includes ALL of a patient's completed or amended [place] Advance and Rescinded Directives. The entries below indicate that a directive exists for the patient, but an actual copy is not included with this document. The data comes from all [place] facilities. Date Advance Directives Provider Source Oct 21, 2022 [place] KO [facility] Sep 23, 2004 ADVANCE DIRECTIVE CJ RUDOLPH [facility] May 24, 2004 ADVANCE DIRECTIVE MITCH ZEE [facility] May 24, 2000 ADVANCE DIRECTIVE MICHELE CENTENO [facility] Nov 11, 1996 ADVANCE DIRECTIVE MAGGIE DRAKE [facility] December 08, 1995 ADVANCE DIRECTIVE KI SANTOYO [facility] Radiology Reports: +/- 30 days of [...] the Encounter. The data comes from all [place] treatment facilities. Date/Time Radiology Report Provider Source Jan 15, 2024 12:42 PM US ABDOMEN LIMITED W/BLOOD FLOW DOPPLER: BETTY HAAS [id number] -[id number] M Exm Date: JAN 15, 2024@12:42 Req Phys: KOSTA SOTO E Pat Loc: [facility]-GI CONSULT (Req'g Loc) Img Loc: [facility]ULTRASOUND Service: Unknown [facility] [address] [place] [address] (Case [id number] COMPLETE) US ABDOMEN LTD, SINGLE ORG OR CHRISTIN(US Detailed) CPT:75954 Reason for Study: elevated LFTs (Case [id number] COMPLETE) US BLOOD FLOW ABD/RENAL (LTD) (US Detailed) CPT:28423 Clinical History: Organ to Image: Liver Reason for exam: elevated LFTs Report Status: Verified Date Reported: JAN 15, 2024 Date Verified: JAN 15, 2024 Publications Distribution Clerk E-Sig:/ES/DUNIA LUNA Report: CASE #: [id number], [id number] EXAMINATION: Limited sonogram of the right upper [...] or cholecystitis. Report dictated by Lucien Ruiz (residential insurance inspector) I, Dunia Luna, have reviewed the images and report and concur with these findings. Primary Interpreting Staff: DUNIA LUNA MD (Publications Distribution Clerk) Primary Interpreting Resident: LUCIEN RUIZ MD /DUNIA MARTINES [facility] Encounter Notes: All associated encounter notes This section contains the clinical notes associated to the Encounter. Date/Time Encounter Note(s) Provider Source Jan 30, 2024 12:43 PM NONVA NOTE: LOCAL TITLE: [facility] SELF PRESENTING CARE COORD PLAN STANDARD TITLE: NONVA NOTE DATE OF NOTE: JAN 30, 2024@12:43 ENTRY DATE: FEB 02, 2024@12:43:35 AUTHOR: WALLACE FALCON EXP COSIGNER: URGENCY: STATUS: COMPLETED [facility] S[facility]F PRESENTING CARE COORD PLAN [address] Emergency Notification Intake Date Presenting to the Facility: Jan Method of Contact: Notified from [facility] worklist Notification ID: [id number] [facility] Referral #: [id number] Clinical Review [facility] Name: [facility]: [facility] Address: [facility] [place][note 2] [address] City: [place] State: [place] Zip Code: [address] Community Facility Point of Contact: Name: KONSTANTIN GIBBS Chief complaint: SEVERE ABDOMINAL PAINS Primary Diagnosis: Disposition Discharged Date of discharge: Jan Discharge to home Records req'd by fax. /los/ WALLACE FALCON ADVANCED OCEAN FREIGHT AGENT Signed: 02/02/2024 12:51 Receipt Acknowledged By: 02/02/2024 13:52 /es/ JENNIFER Chew- NURSE PRACTITIONER 02/02/2024 15:09 /es/ ANNABELLA LACKEY RN REGISTERED NURSE 02/07/2024 ADDENDUM STATUS: COMPLETED Records req'd by fax. /los/ WALLACE FALCON ADV[employer]ED [employer]CE[employer]IGHT AGENT Signed: 02/07/2024 12:35 02/14/2024 ADDENDUM STATUS: COMPLETED Requested records. /es/ TINO CASTANON ADVANCED OCEAN [employer]REIGHT AGENT Signed: 02/14/2024 11:15 02/15/2024 ADDENDUM STATUS: COMPLETED RECORDS REC'D sent to scanner for clinical review /los/ JANIE MANZO OCEAN FREIGHT AGENT Signed: 02/15/2024 16:34 WALLACE FALCON [facility]
--- OUTSIDE RECORDS SUMMARY | 2024-11-30 15:25 | XMS_ITS ---
Author Name [facility] [place] Address [address] [place] [address] Care Team Providers Care Roll Up Helper Name Role Phone YONATHAN CORONEL Primary Care Provider OMEGA Bethea Unavailable Unavailable Selected Encounter This section includes the information on record at [place] for the Encounter. Date/Time Encounter Type Encounter Description Reason Provider Source Apr 20, 2024 12:10 PM JOWL TRIMMER DIRECTOR OF AGRICULTURE INDIVIDU JOWL TRIMMER SERVICE - INDIVIDUAL ICD-10-CM Z71.81 Spiritual or mandaeism counseling IVON SCHUMACHER Yumi Encounter Template Text not used by [place] Assessments - Encounter Diagnoses This section includes the primary and secondary diagnoses documented for the Encounter. Date/Time Primary/Secondary Diagnosis Diagnosis Name Provider Source Apr 20, 2024 01:50 PM PRIMARY Spiritual or mandaeism counseling IVON SCHUMACHER [facility] Plan of Treatment: Future Appointments (+ 6 months) and Future Tests (+/- 45 days) The Plan of Treatment section includes future care activities for the patient from all [place] treatmentfacilities. This section includes future appointments and future orders which are active, pending or scheduled. Future Appointments This section includes appointments that were scheduled to occur 6 months from the date of the Encounter, up to a maximum of 20 appointments. The data comes from all [place] treatment facilities. Appointment Date/Time Appointment Type Appointme nt Facility Name Apr 23, 2024 03:00 PM AMBULATORY - MEDICINE [facility] Apr 29, 2024 01:00 PM AMBULATORY - NONE [facility] Apr 30, 2024 03:00 PM AMBULATORY - PSYCHIATRY [facility] May 03, 2024 10:30 AM [facility]ULATORY - SURGERY [facility] May 21, 2024 01:00 PM AMBULATORY - PSYCHIATRY [facility] May 31, 2024 10:30 AM AMBULATORY - SURGERY [facility] Jun 05, 2024 09:30 AM AMBULATORY - NONE [facility] Jun 14, 2024 11:00 AM AM[facility]ULATORY - SUR[facility]ERY [facility] Jun 17, 2024 03:00 PM AMBULATORY - MEDICINE [facility] Jun 25, 2024 03:00 PM AMBULATORY - PSYCHIATRY [facility] Jul 01, 2024 10:30 AM AMBULATORY - NONE [facility] Jul 08, 2024 10:30 AM AMBULATORY - REHAB MEDICIN E [facility] Jul 18, 2024 02:00 PM AMBULATORY - MEDICINE [facility] Jul 22, 2024 03:00 PM AMBULATORY - NONE [facility] Aug 02, 2024 01:30 PM AMBULATORY - SURGERY [facility] Aug 08, 2024 02:00 PM AMBULATORY - PSYCHIATRY [facility] Aug 09, 2024 02:00 PM AMBULATORY - SURGERY [facility] Aug 13, 2024 03:00 PM AMBULATORY - PSYCHIATRY [facility] Aug 27, 2024 09:30 AM AMBULATORY - REHAB MEDICIN E [facility] Sep 03, 2024 10:30 AM AMBULATORY - NONE [facility] Lab Results: +/- 30 days of [...] Type Comment Apr 20, 2024 11:39 AM [facility] GLUCOSE,BLOOD-poct (STL) BLOOD Specimen Type: BLOOD Comment: Test Performed by: [id number] Meter #: [id number] Ordering Provider: KIKI PINA Report Released Date/Time: Apr 20, 2024 12:07 PM Reporting Lab: [place] [address] [facility] [address] Performing Lab: [address] [address] GLUCOSE,BLOOD-poct (STL) 266 mg/dL H -Apr 20, 2024 05:26 AM [facility] GLUCOSE,BLOOD-poct (STL) BLOOD Specimen Type: BLOOD Comment: Test Performed by: [id number] Meter #: [id number] Ordering Provider: KIKI PINA Report Released Date/Time: Apr 20, 2024 05:38 AM Reporting Lab: [place] [address] [facility] [address] Performing Lab: [address] [address] GLUCOSE,BLOOD-poct (STL) 157 mg/dL H Apr 19, 2024 08:45 PM [facility] GLUCOSE,BLOOD-poct (STL) BLOOD Specimen Type: BLOOD Comment: Test Performed by: [id number] Meter #: [id number] Ordering Provider: KIKI PINA Report Released Date/Time: Apr 19, 2024 10:10 PM Reporting Lab: [address] [address] Performing Lab: [address] [address] GLUCOSE,BLOOD-poct (STL) 232 mg/dL H Apr 19, 2024 05:13 PM [facility] GLUCOSE,BLOOD-poct (STL) BLOOD Specimen Type: BLOOD Comment: Test Performed by: [id number] Meter #: [id number] Ordering Provider: KIKI PINA Report Released Date/Time: Apr 19, 2024 05:24 PM Reporting Lab: [place] [address] [facility] [address] Performing Lab: [address] [address] GLUCOSE,BLOOD-poct (STL) 176 mg/dL H 72-99 Apr 19, 2024 03:32 PM [facility] GLUCOSE,BLOOD-poct (STL) BLOOD Specimen Type: BLOOD Comment: Test Performed by: [id number] Meter #: [id number] Ordering Provider: LAUREN MOREL Report Released Date/Time: Apr 19, 2024 03:43 PM Reporting Lab: [address] [address] Performing Lab: [address] [address] GLUCOSE,BLOOD-poct (STL) 155 mg/dL H 72-99 Apr 19, 2024 02:56 PM [facility] MRSA SURVL NARES DNA NARES Specimen Type: [...] Apr 19, 2024 04:55 PM Reporting Lab: [address] [address] Performing Lab: [address] [address] MRSA SURVL NARES DNA Negative Negative Apr 19, 2024 10:33 AM [facility] GLUCOSE,BLOOD-poct (STL) BLOOD Specimen Type: BLOOD Comment: Test Performed by: [id number] Meter #: [id number] Ordering Provider: YONATHAN CORONEL Report Released Date/Time: Apr 19, 2024 10:50 AM Reporting Lab: [address] [address] Performing Lab: [address] [address] GLUCOSE,BLOOD-poct (STL) 226 mg/dL H 72-99 Apr 08, 2024 03:28 PM [facility] PT/INR NEW (STL-MA) PLASMA Specimen Type: PLAS MA Comment: ~For Test: BASIC METABOLIC PANEL ~pre-op Ordering Provider: NOAH SANCHEZ Report Released Date/Time: Apr 02, 2024 12:39 PM Reporting Lab: [address] [address] Performing Lab: [address] [address] PROTIME 12.5 s 9.4-12.5 INR VALUE 1.1 {INR} Apr 08, 2024 03:28 PM [facility] BASIC METABOLIC PANEL PLASMA Specimen Type: PL ASMA Comment: ~For Test: BASIC METABOLIC PANEL ~pre-op Ordering Provider: NOAH SANCHEZ Report Released Date/Time: Apr 02, 2024 12:39 PM Reporting Lab: [address] [address] Performing Lab: [address] [address] CREATININE 1.59 mg/dL H 0.7-1.3 UREA NITROGEN 13.7 mg/dL 9.0-25.0 GLUCOSE 234 mg/dL H 72-99 SODIUM 139 meq/L 136-145 POTASSIUM 4.3 meq/L 3.5-5 CHLORIDE 104 meq/L 98-107 CARBON DIOXIDE 22 meq/L 22-31 CALCIUM 9.6 mg/dL 8.4-10.4 EGFR (CKD-EPI 2020) 50.6 >60 Apr 08, 2024 03:28 PM [facility] CBC BLOOD Specimen Type: BLOOD Comment: ~For Test: BASIC METABOLIC PANEL ~pre-op Ordering Provider: NOAH SANCHEZ Report Released Date/Time: Apr 02, 2024 12:39 PM Reporting Lab: [facility] [address] [facility] [address] Performing Lab: [facility] [address] [facility] [address] WBC 7.3 10*3/uL 3.6-11.2 RBC 5.23 10*6/uL [...] Height Weight Body Mass Index Source Apr 20, 2024 12:24 PM 97.3 62 135/82 20 94 3 [facility] Apr 20, 2024 11:25 AM 3 [facility] Apr 20, 2024 10:08 AM 2 [facility] Apr 20, 2024 09:07 AM 7 [facility] Apr 20, 2024 08:39 AM 8 [facility] Social History: Smoking Status (Most current) and Tobacco Use (All prior to encounter date) This section includes the most current, and the historical, smoking and tobacco- related health factors from the [place] facility where the Encounter took place. Current Smoking Status This section includes the most current smoking, or tobacco-related health factor, from the [place] facility where the Encounter took place. Date/Time Current Smoking Status Comment Facility May 26, 2000 01:36 PM CURRENT NON-TOBACC O USER-HX OF USE stop smoking 10yrs ago,started smoking at 14yrs,smoked 2packs a day [facility] Tobacco Use History This section includes a history of the smoking, or tobacco-related health factors, that were collected on or before the date of the Encounter. The data comes from the [place] facility where the Encounter took place. Date/Time Smoking Status/Tobacco Use Comment F acility Mar 07, 2000 12:35 PM CURRENT NON-TOBACC O USER-HX OF USE [facility] Advance Directives: All historical and current Section Date Range: From patient's date of to the date document was created. This section includes ALL of a patient's completed or amended [place] Advance and Rescinded Directives. The entries below indicate that a directive exists for the patient, but an actual copy is not included with this document. The data comes from all [place] facilities. Date Advance Directives Provider Source Oct 21, 2022 FRANKLIN KO [facility] Sep 23, 2004 ADVANCE DIRECTIVE CJ RUDOLPH [facility] May 24, 2004 ADVANCE DIRECTIVE MITCH ZEEU IS [facility] May 24, 2000 ADVANCE DIRECTIVE MICHELE CENTENOU IS [facility] Nov 11, 1996 ADVANCE DIRECTIVE MAGGIE DRAKE [facility] December 08, 1995 ADVANCE DIRECTIVE KI SANTOYO [facility] Radiology Reports: +/- 30 days of the [...] the Encounter. The data comes from all [place] treatment facilities. Date/Time Radiology Report Provider Source Apr 08, 2024 03:15 PM CHEST X-RAY, 2 VIE WS: BETTY HAAS [id number] -1970 M Exm Date: APR 08, 2024@15:15 Req Phys: DANIEL,NOAH E Pat Loc: [facility]-PRE-OP EVAL NURSING AM (Req Img Loc: [facility]-MAIN RADIOLOGY SUITE Service: [facility], [facility] [address] [place] [address] (Case [id number] COMPLETE) CHEST X-RAY, 2 VIEWS (RAD Detailed) CPT:55964 Reason for Study: pre-op Clinical History: Report Status: Verified Date Reported: APR 08, 2024 Date Verified: APR 08, 2024 Cardiac Cath Lab Technologist E-Sig:/ES/Franklin Hartley MD. FACR. Report: History: pre-op. Comparison: Prior chest examination-03/24/2023. Technique: PA and lateral views. Findings: No pulmonary consolidation, pleural effusion, pneumothorax, cardiomegaly or pulmonary edema is seen. Impression: No acute cardiopulmonary disease is seen. Primary Interpreting Staff: Franklin Hartley MD. FACR, Neuroradiologist (Cardiac Cath Lab Technologist) /FR[facility] KENDALL [facility] Pathology Reports: +/- 30 days of [...] the Encounter. The data comes from all [place] treatment facilities. Date/Time Pathology Report Provider Source [...] - - - - - GROSS DESCRIPTION: (ElsaKenaJuana, 04-19-2024) The specimen is received in formalin, [...] Performing Laboratory: Surgical Pathology Report Performed By: [facility] [address] [place] [address]# [id number] [address] [address] $FTR - - - - - - - - - - - - - - - - - - - - - - - - - - - - - - - - - - - - - - - - (End of report) CHRISTY MALCOLM MD [facility] Date Apr 23, 2024 - - - - - - - - - - - - - - - - - - - - - - - - - - - - - - - - - - - - - - - - BETTY HAAS STANDARD FORM 515 ID:[id number] SEX:M :1970 AGE: 54 LOC:AP[facility]EE PCP: Yonathan Coronel NP /los/ CHRISTY MALCOLM Pathologist Signed: 04/23/2024 14:03 CHRISTY MALCOLM [facility] Apr 08, 2024 03:00 PM LR MICROBIOLOGY RE PORT: Accession [UID]: [id number] [[id number]] Received: Apr 08, 2024@15:27 Collection sample: URINE,CLEAN CATCH Collection date: Apr 08, 2024 15:00 Site/Specimen: URINE Provider: NOAH SANCHEZ Test(s) ordered: C&S URINE.................... . completed: Apr 09, 2024 22:40 * BACTERIOLOGY FINAL REPORT => Apr 09, 2024 22:47 TECH CODE: [id number] CULTURE RESULTS: STREP. AGALACTIAE, GRP. B - Quantity: >25,000 - <50,000 CFU/ML Comment: There will be no work up. Bacteriology Remark(s): -- [facility] 04/09/24 -- >25,000 - <50,000 CFU/ML S. AGAL - There will be no work up. <10,000 CFU/ML MIXED GRAM POSITIVE ORGANISM There will be no work up. =--=--=--=--=--=--=--=--= --=--=--=--=--=--=--=--=- -=--=--=--=--=--=--=--=-- =-- Performing Laboratory: Bacteriology Report Performed By: [facility] [address] [place] [address] CLIA# [id number] [facility] [facility] [address] [place] [address] LUANA CINTRON [facility] Encounter Notes: All associated encounter notes This section contains the clinical notes associated to the Encounter. 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 Spiritual resources appear: adequate [place] denies needing any spiritual resources at this time. Discussed 's relationship with: family introduced his and mentioned having a supportive family. 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 Discussed 's concerns regarding: condition spoke at-length about his on-going medical issues as well as his recent procedure to address an issue. [place] anticipates the recovery period taking about 8-9 weeks. anticipates being discharged this afternoon. INTERVENTION Offered / accepted: pastoral support, ministry of presence, spiritual counseling, additional counseling, supportive listening OUTCOMES 's Response: expressed appreciation for the visit Observations: [place] seemed calmer, experienced support FOLLOW-UP Geotechnical Field Technician will be available to as needed throughout this admission. /es/ REV. CHELSEA SCHUMACHER D.Min., [facility] CLINICAL JOWL TRIMMER Signed: 04/20/2024 13:51 CHELSEA SCHUMACHER [facility]
--- OUTSIDE RECORDS SUMMARY | 2024-11-30 15:25 | XMS_ITS | Encounter Summary ---
Author Name [facility] [place] [facility] [place] Address [address] [place] [address] Care Team Providers Care Gang Miner Name Role Phone YONATHAN LINDSAY Primary Care Provider OMEGA Bethea Unavailable Unavailable Selected Encounter This section includes the information on record at [place] for the Encounter. Date/Time Encounter Type Encounter Description Reason Provider Source Jun 14, 2024 11:00 AM OFFICE O/P EST MOD 30 MIN [facility] ICD-10-CM F52.21 Male erectile disorder JAZMINE DUFF Yumi Encounter Template Text not used by [place] Assessments - Encounter Diagnoses This section includes the primary and secondary diagnoses documented for the Encounter. Date/Time Primary/Secondary Diagnosis Diagnosis Name Provider Source Jun 14, 2024 12:37 PM PRIMARY Male erectile disorder STEPHANIE GALARZA [facility] Plan of Treatment: Future Appointments (+ [...] Date/Time Appointment Type Appointme nt Facility Name Jun 17, 2024 03:00 PM AMBULATORY - MEDICINE [facility] Jun 25, 2024 03:00 PM AMBULATORY - PSYCHIATRY [facility] Jul 01, 2024 10:30 AM AMBULATORY - NONE [facility] Jul 08, 2024 10:30 AM AMBULATORY - REHAB MEDICIN E [facility] Jul 18, 2024 02:00 PM AMBULATORY - MEDICINE [facility] Jul 22, 2024 03:00 PM AMBULATORY - NONE [facility] Aug 02, 2024 01:30 PM AMBULATORY - SURGERY [facility] Aug 08, 2024 02:00 PM AMBULATORY - PSYCHIATRY [facility] Aug 09, 2024 02:00 PM AMBULATORY - SURGERY [facility] Aug 13, 2024 03:00 PM AMBULATORY - PSYCHIATRY [facility] Aug 27, 2024 09:30 AM AMBULATORY - REHAB MEDICIN E [facility] Sep 03, 2024 10:30 AM AMBULATORY - NONE [facility] Sep 11, 2024 11:00 AM AMBULATORY - REHAB MEDICIN E [facility] Sep 12, 2024 02:30 PM AMBULATORY - MEDICINE [facility] Sep 27, 2024 10:15 AM AMBULATORY - REHAB MEDICIN E [facility] Oct 10, 2024 02:00 PM AMBULATORY - PSYCHIATRY [facility] Oct 24, 2024 11:00 AM AMBULATORY - REHAB MEDICIN E [facility] Oct 25, 2024 10:30 AM AMBULATORY - MEDICINE [facility] Nov 01, 2024 01:00 PM AMBULATORY - SURGERY [facility] Nov 13, 2024 12:00 PM AMBULATORY - NONE . [facility] Active, Pending, and Scheduled Orders This [...] PANEL (STL) GREEN LI/HEP BLD/PLAS PLASMA [facility] Jul 18, 2024 12:00 AM Laboratory - Chemi stry Order HGA1C BLOOD SP [facility] Jul 18, 2024 12:00 AM Laboratory - Chemi stry Order PROST. SPECIFIC AG.(PB-STL) GOLD/RED SST SERUM SP [facility] Jul 18, 2024 12:00 AM Laboratory - Chemi stry Order AMMONIA (STL-[place]) WHITE CAP EDTA PLASMA SP [facility] Jul 18, 2024 12:00 AM Laboratory - Chemi stry Order MICRAL/CREAT PROFILE (STL) URINE SP [facility] Vital Signs: All taken on the encounter date This section contains inpatient and outpatient Vital Signs collected on the date of the Encounter. Date/Time Temperature Pulse Blood Pressure Respiratory Rate SP02 Pain Height Weight Body Mass Index Source Jun 14, 2024 12:23 PM 98 78 134/80 20 96 0 72 288.3 39 [facility] Social History: Smoking Status (Most current) and Tobacco Use (All prior to encounter date) This section includes the most current, and the historical, smoking and tobacco- related health factors from the [place] facility where the Encounter took place. Current Smoking Status This section includes the most current smoking, or tobacco-related health factor, from the [facility] where the Encounter took place. Date/Time Current Smoking Status Comment Facility May 26, 2000 01:36 PM CURRENT NON-TOBACC O USER-HX OF USE stop smoking 10yrs ago,started smoking at 14yrs,smoked 2packs a day [facility] Tobacco Use History This section includes a history of the smoking, or tobacco-related health factors, that were collected on or before the date of the Encounter. The data comes from the [facility] where the Encounter took place. Date/Time Smoking Status/Tobacco Use Comment F acility Mar 07, 2000 12:35 PM CURRENT NON-TOBACC O USER-HX OF USE [facility] Advance Directives: All historical and current [...] [facility] Sep 23, 2004 ADVANCE DIRECTIVE KLAUDIACORONA [facility] May 24, 2004 AD[address] [facility] May 24, 2000 ADVANCE DIRECTIVE WAQASJOHNYMICHELE Marvin [facility] Nov 11, 1996 ADVANCE DIRECTIVE MAGGIE DRAKE [facility] December 08, 1995 ADVANCE DIRECTIVE NATANAELKI [facility] Encounter Notes: All associated encounter notes This section contains the clinical notes associated to the Encounter. Date/Time Encounter Note(s) Provider Source Jun 14, 2024 12:21 PM UROLOGY NOTE: LOCAL TITLE: UROLOGY NOTE STANDARD TITLE: UROLOGY NOTE DATE OF NOTE: JUN 14, 2024@12:21 ENTRY DATE: JUN 14, 2024@12:21:57 AUTHOR: RAGHAVENDRA GALARZA EXP COSIGNER: JAZMINE DUFF URGENCY: STATUS: COMPLETED CHIEF COMPLAINT, HPI, EXAM & DATA CC: sp IPP HPI: 54 yo M, activation IPP 03/2024 Here for activation and teaching Feels he has healed and is ready to use device ROS/PMH Per HPI Remainder of PMH listed below and reviewed? Yes TARGETED PHYSICAL EXAM: Gen: NAD HEENT: NC/AT Resp: NLB Abd: s/nt/nd Neuro: alert and oriented Skin: warm and dry : well healed penoscrotal incision, drain site well healed, patient cycled device himself CREATININE:CREATININE 1.59 H mg/dL 04/08/2024 15:28 PSA: PROST. SPECIFIC AG.(PB-STL) 0.388 ng/mL 05/15/2023 15:37 ASSESS MENT AND PLAN ---- 54 yo M sp IPP OK to resume sexual activity Instructions for use from myself and rep from [facility] FOLLOW-UP: 07/[address] Moss as scheduled (MORE INFORMATION) --- * LABS----- PSA Trend: PROST. SPECIFIC AG.(PB-STL) 0.388 ng/mL 05/15/2023 15:37 PROST. SPECIFIC AG.(PB-STL) 0.578 ng/mL 04/25/2022 14:44 PROST. SPECIFIC AG.(PB-STL) 0.719 ng/mL 04/09/2021 12:43 PROST. SPECIFIC AG.(PB-STL) 0.441 ng/ml 08/06/2019 11:19 BMP: SODIUM 139 mEq/L 04/08/2024 15:28 POTASSIUM 4.3 [...] 15:28 BASOPHILS, ABSOLUTE 0.03 10*3/uL 04/08/2024 15:28 UA: URINE COLOR Colorless 09/12/2023 21:20 APPEARANCE Clear 09/12/2023 21:20 U.PH 6.5 09/12/2023 21:20 U.BILIRUBIN Negative mg/dL 09/12/2023 21:20 U.NITRITE Negative mg/dL 09/12/2023 21:20 PAST MEDICAL, SOCIAL, FAMILY HX AND ROS 1) Abnormal results of liver function studies 2) Diverticulitis 3) Erectile dysfunction 4) Obesity 5) Chest pain 6) Sensory-neural hearing loss 7) Back pain (SNOMED CT 848593099) 8) Benign hypertension (SNOMED CT 92237655) 9) Convulsion 10) Male hypogonadism 11) Conversion disorder (SNOMED CT 834894638) 12) Testicular hypofunction 13) Osteoarthritis of right [...] post-traumatic stress disorder 31) Major depressive disorder MEDICATIONS: Active Outpatient Medications (including Supplies): Active Outpatient Medications Status 1) ALBUTEROL 90MCG (CFC-F) 200D ORAL INHL INHALE 2 PUFFS ACTIVE BY ORAL INHALATION FOUR TIMES A DAY NEEDED FOR BREATHING. SHAKE WELL. RINSE MOUTHPIECE FREQUENTLY TO PREVENT CLOGGING. 2) BETAMETHASONE DIPROPIONATE 0.05% OINT APPLY LIGHTLY ACTIVE TO AFFECTED AREA(S) THREE TIMES A DAY (EXTERNAL USE ONLY) 3) CETIRIZINE HCL 10MG TAB TAKE ONE TABLET BY MOUTH ONCE ACTIVE A DAY FOR ALLERGY SYMPTOMS 4) CHOLECALCIF 50MCG (D3-2,000UNIT) [...] STOOL/DIARRHEA. 11) DRESSING,POLYSKIN II 2 X 2.75IN JEFFERY#[id number] USE/APPLY ACTIVE DRESSING(S) TO AFFECTED AREA(S) DIRECTED FOR USE WITH GLUCOSE SENSOR 12) DULOXETINE HCL 30MG EC CAP TAKE ONE CAPSULE BY MOUTH ACTIVE (S) ONCE A DAY FOR PTSD/MOOD/ANXIETY/PAIN DO NOT ABRUPTLY DISCONTINUE MEDICATION. 13) EMPAGLIFLOZIN 25MG TAB TAKE ONE TABLET BY MOUTH ONCE ACTIVE A DAY 14) EZETIMIBE 10MG TAB TAKE ONE TABLET BY MOUTH ONCE A ACTIVE (S) DAY TO LOWER CHOLESTEROL 15) GLIPIZIDE 5MG TAB TAKE ONE TABLET BY MOUTH TWO TIMES ACTIVE A DAY BEFORE MEALS TAKE 30 MINUTES BEFORE EATING. 16) GLUCOSE SENSOR FREESTYLE BREN 3 PLUS USE SENSOR ACTIVE EVERY 15 DAYS FOR BLOOD GLUCOSE MONITORING 17) LIDOCAINE 5% PATCH APPLY 1 PATCH TO SKIN SITE NIGHTLY ACTIVE NEEDED FOR PAIN. MAY USE 1-3 PATCHES. PATCHES MAY BE CUT TO FIT ONTO FEET. APPLY PATCH AND PRESS FIRMLY FOR 10-15 SECONDS. KEEP ON FOR 12 HOURS THEN REMOVE PATCH FOR 12 HOURS. 18) METFORMIN HCL 500MG 24HR SA TAB TAKE FOUR TABLETS BY ACTIVE MOUTH ONCE A DAY FOR BLOOD SUGAR CONTROL. TAKE WITH FOOD. AVOID ALCOHOL. DISCONTINUE BEFORE GETTING XRAY DYE. 19) POLYETHYLENE GLYCOL 3350 ORAL PWDR MIX AND DRINK 1 ACTIVE CAPFUL BY MOUTH ONCE A DAY NEEDED FOR CONSTIPATION (MEASURE WITH CAP AND MIX IN 8 OZ OF WATER) 20) PRAZOSIN HCL 2MG CAP TAKE THREE CAPSULES BY MOUTH AT ACTIVE (S) BEDTIME FOR NIGHTMARES MAY CAUSE DIZZINESS OR DROWSINESS. 21) PREGABALIN 100MG ORAL CAP TAKE TWO CAPSULES BY MOUTH ACTIVE EVERY MORNING AND TAKE THREE CAPSULES EVERY EVENING FOR FIBROMYALGIA *MAY CAUSE DROWSINESS* 22) SEMAGLUTIDE 2MG/0.75ML INJ PEN 3ML INJECT 2MG UNDER ACTIVE THE SKIN EVERY WEEK FOR DIABETES 23) SODIUM CHLORIDE 0.65% SOLN NASAL SPRAY USE 1 SPRAY ACTIVE INTO NOSTRIL(S) EVERY 4 HOURS NEEDED FOR NASAL CONGESTION 24) TRAZODONE HCL 100MG TAB TAKE TWO TABLETS BY MOUTH AT ACTIVE BEDTIME FOR DEPRESSION Active Non-VA Medications Status 1) Non-VA TRIAMCINOLONE ACETONIDE 0.025% CREAM SPARINGLY ACTIVE TO AFFECTED AREA(S) TWICE A DAY 25 Total Medications Allergies: NIACIN, SIMVASTATIN, COREG 25MG TABLET, PRAVASTATIN, SHRIMP, ATORVASTATIN ROSUVASTATIN, LOVASTATIN, PITAVASTATIN /los/ Raghavendra Galarza MD Resident, Urology Signed: 06/14/2024 12:37 /los/ JAZMINE DUFF MD Staff Physician, Urology Cosigned: 06/14/2024 14:40 RAGHAVENDRA GALARZA [facility]
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
--- OUTSIDE RECORDS SUMMARY | 2024-11-30 15:25 | XMS_ITS | Encounter Summary ---
Author Name [facility] [place] [facility] [place] Address [address] [place] [address] Care Team Providers Care Gear Nicker Name Role Phone YONATHAN CORONEL Primary Care Provider OMEGA Bethea Unavailable Unavailable Selected Encounter This section includes the information on record at [place] for the Encounter. Date/Time Encounter Type Encounter Description Reason Provider Source Apr 30, 2024 03:00 PM PSYTX W PT 60 MINUTES PTSD OUTPT RES SPEC PROG INDIV ICD-10-CM F43.12 Post-traumatic stress disorder, chronic FRANKLIN HASSAN IHYumi Encounter Template Text not used by [place] Assessments - Encounter Diagnoses This section includes the primary and secondary diagnoses documented for the Encounter. Date/Time Primary/Secondary Diagnosis Diagnosis Name Provider Source Apr 30, 2024 03:58 PM PRIMARY Post-traumatic stress disorder, chronic FRANKLIN HASSAN [facility] Apr 30, 2024 03:58 PM SECONDARY Conversion disorder with seizures or convulsions FRANKLIN HASSAN [facility] Plan of Treatment: Future Appointments (+ 6 months) and Future Tests (+/- 45 days) The Plan of Treatment section includes future care activities for the patient from all [place] treatmentfacilities. This section includes future appointments and future orders which are active, pending or scheduled. Future Appointments This section includes appointments that were scheduled to occur 6 months from the date of the Encounter, up to a maximum of 20 appointments. The data comes from all [place] treatment facilities. Appointment Date/Time Appointment Type Appointme nt Facility Name May 03, 2024 10:30 AM AMBULATORY - SURGERY . [facility] May 21, 2024 01:00 PM AMBULATORY - PSYCHIATRY [facility] May 31, 2024 10:30 AM AMBULATORY - SURGERY [facility] Jun 05, 2024 09:30 AM AMBULATORY - NONE [facility] Jun 14, 2024 11:00 AM AMBULATORY - SURGERY [facility] Jun 17, 2024 03:00 PM AMBULATORY - MEDICINE [facility] Jun 25, 2024 03:00 PM AMBULATORY - PSYCHIATRY [facility] Jul 01, 2024 10:30 AM AMBULATORY - NONE [facility] Jul 08, 2024 10:30 AM AMBULATORY - REHAB MEDICIN E [facility] Jul 18, 2024 02:00 PM AMBULATORY - MEDICINE [facility] Jul 22, 2024 03:00 PM AMBULATORY - NONE [facility] [facility] Aug 02, 2024 01:30 PM AMBULATORY - SURGERY [facility] Aug 08, 2024 02:00 PM AMBULATORY - PSYCHIATRY [facility] Aug 09, 2024 02:00 PM AMBULATORY - SURGERY [facility] Aug 13, 2024 03:00 PM AMBULATORY - PSYCHIATRY [facility] Aug 27, 2024 09:30 AM AMBULATORY - REHAB MEDICIN E [facility] Sep 03, 2024 10:30 AM AMBULATORY - NONE [place] [facility] Sep 11, 2024 11:00 AM AMBULATORY - REHAB MEDICIN E [facility] Sep 12, 2024 02:30 PM AMBULATORY - MEDICINE [facility] Sep 27, 2024 10:15 AM AMBULATORY - REHAB MEDICIN E [facility] Lab Results: +/- 30 days of [...] Type Comment Apr 20, 2024 11:39 AM [facility] GLUCOSE,BLOOD-poct (STL) BLOOD Specimen Type: BLOOD Comment: Test Performed by: [id number] Meter #: [id number] Ordering Provider: KIKI PINA Report Released Date/Time: Apr 20, 2024 12:07 PM Reporting Lab: [address] [address] Performing Lab: [address] [address] GLUCOSE,BLOOD-poct (STL) 266 mg/dL H 72-Apr 20, 2024 05:26 AM [facility] GLUCOSE,BLOOD-poct (STL) BLOOD Specimen Type: BLOOD Comment: Test Performed by: [id number] Meter #: [id number] Ordering Provider: KIKI PINA Report Released Date/Time: Apr 20, 2024 05:38 AM Reporting Lab: [address] [address] Performing Lab: [address] [address] GLUCOSE,BLOOD-poct (STL) 157 mg/dL H -Apr 19, 2024 08:45 PM [facility] GLUCOSE,BLOOD-poct (STL) BLOOD Specimen Type: BLOOD Comment: Test Performed by: [id number] Meter #: [id number] Ordering Provider: KIKI PINA Report Released Date/Time: Apr 19, 2024 10:10 PM Reporting Lab: [address] [address] Performing Lab: [address] [address] GLUCOSE,BLOOD-poct (STL) 232 mg/dL H 72-Apr 19, 2024 05:13 PM [facility] GLUCOSE,BLOOD-poct (STL) BLOOD Specimen Type: BLOOD Comment: Test Performed by: [id number] Meter #: [id number] Ordering Provider: KIKI PINA Report Released Date/Time: Apr 19, 2024 05:24 PM Reporting Lab: [address] [address] Performing Lab: [address] [address] GLUCOSE,BLOOD-poct (STL) 176 mg/dL H 72-99 Apr 19, 2024 03:32 PM [facility] GLUCOSE,BLOOD-poct (STL) BLOOD Specimen Type: BLOOD Comment: Test Performed by: [id number] Meter #: [id number] Ordering Provider: LAUREN MOREL Report Released Date/Time: Apr 19, 2024 03:43 PM Reporting Lab: [address] [address] Performing Lab: [address] [address] GLUCOSE,BLOOD-poct (STL) 155 mg/dL H 72-99 Apr 19, 2024 02:56 PM [facility] MRSA SURVL NARES DNA [...] Apr 19, 2024 04:55 PM Reporting Lab: [address] [address] Performing Lab: [address] [address] MRSA SURVL NARES DNA Negative Negative Apr 19, 2024 10:33 AM [facility] GLUCOSE,BLOOD-poct (STL) BLOOD Specimen Type: BLOOD Comment: Test Performed by: [id number] Meter #: [id number] Ordering Provider: YONATHAN CORONEL Report Released Date/Time: Apr 19, 2024 10:50 AM Reporting Lab: [place] [address] [facility] [address] Performing Lab: [address] [address] GLUCOSE,BLOOD-poct (L) 226 mg/dL H 72-99 Apr 08, 2024 03:28 PM [facility] PT/INR NEW (STL-MA) PLASMA Specimen Type: PLAS MA Comment: ~For Test: BASIC METABOLIC PANEL ~pre-op Ordering Provider: NOAH SANCHEZ Report Released Date/Time: Apr 02, 2024 12:39 PM Reporting Lab: [place] [address] [facility] [address] Performing Lab: [address] [address] PROTIME 12.5 s 9.4-12.5 INR VALUE 1.1 {INR} Apr 08, 2024 03:28 PM [facility] BASIC METABOLIC PANEL PLASMA Specimen Type: PL ASMA Comment: ~For Test: BASIC METABOLIC PANEL ~pre-op Ordering Provider: NOAH SANCHEZ Report Released Date/Time: Apr 02, 2024 12:39 PM Reporting Lab: [place] [address] [facility] [address] Performing Lab: [place] [address] [facility] [address] CREATININE 1.59 mg/dL H 0.7-1.3 UREA NITROGEN 13.7 mg/dL 9.0-25.0 GLUCOSE 234 mg/dL H 72-99 SODIUM 139 meq/L 136-145 POTASSIUM 4.3 meq/L 3.5-5 CHLORIDE 104 meq/L 98-107 CARBON DIOXIDE 22 meq/L 22-31 CALCIUM 9.6 mg/dL 8.4-10.4 EGFR (CKD-EPI 2020) 50.6 >60 Apr 08, 2024 03:28 PM [facility] CBC BLOOD Specimen Type: BLOOD Comment: ~For Test: BASIC METABOLIC PANEL ~pre-op Ordering Provider: NOAH SANCHEZ Report Released Date/Time: Apr 02, 2024 12:39 PM Reporting Lab: [facility] [address] [facility] [address] Performing Lab: [facility] [address] [facility] [address] WBC 7.3 10*3/uL 3.6-11.2 RBC 5.23 10*6/uL [...] 0.60 BASOPHILS, ABSOLUTE 0.03 10*3/uL 0.00-0. 20 Social History: Smoking Status (Most current) and Tobacco Use (All prior to encounter date) This section includes the most current, and the historical, smoking and tobacco- related health factors from the [place] facility where the Encounter took place. Current Smoking Status This section includes the most current smoking, or tobacco-related health factor, from the [place] facility where the Encounter took place. Date/Time Current Smoking Status Comment Facil ity Jul 04, 2023 01:09 PM VA-TOBACCO USER EVERY DAY [facility] Tobacco Use History This section includes a history of the smoking, or tobacco-related health factors, that were collected on or before the date of the Encounter. The data comes from the [place] facility where the Encounter took place. Date/Time Smoking Status/Tobacco Use Comment F acility Jul 04, 2023 01:09 PM VA-TOBACCO USE ADVICE [facility] Jul 04, 2023 01:09 PM VA-TOBACCO USE RECYCLING MANAGER NO [facility] Jul 04, 2023 01:09 PM VA-TOBACCO USE MED NO [facility] Jul 04, 2023 01:09 PM VA-TOBACCO USE WI 30 MIN OF WAKEUP [facility] Jul 04, 2023 01:09 PM VA-TOBACCO USER EVERY DAY [facility] Jul 28, 2022 01:00 PM VA-TOBACCO FORMER USER [facility] Jul 28, 2022 01:00 PM VA-TOBACCO QUIT 15 YRS OR MORE [facility] Jul 13, 2021 01:00 PM VA-TOBACCO DOESNT USE WI 30 MIN WAKEUP [facility] Jul 13, 2021 01:00 PM VA-TOBACCO USE 30 YEARS OR MORE [facility] Jul 13, 2021 01:00 PM VA-TOBACCO USE ADVICE [facility] Jul 13, 2021 01:00 PM VA-TOBACCO USE RECYCLING MANAGER NO [facility] Jul 13, 2021 01:00 PM VA-TOBACCO USE MED NO [facility] Jul 13, 2021 01:00 PM VA-TOBACCO USER SOME DAYS [facility] May 20, 2020 03:30 PM VA-TOBACCO DOESNT USE WI 30 MIN WAKEUP [facility] May 20, 2020 03:30 PM VA-TOBACCO USE > 1 5 LESS THAN 30 YEARS [facility] May 20, 2020 03:30 PM VA-TOBACCO USE ADVICE [facility] May 20, 2020 03:30 PM VA-TOBACCO USE RECYCLING MANAGER NO [facility] May 20, 2020 03:30 PM VA-TOBACCO USE MED NO [facility] May 20, 2020 03:30 PM VA-TOBACCO USER SOME DAYS [facility] Jun 26, 2018 11:30 AM VA-TOBACCO FORMER USER [facility] Jun 26, 2018 11:30 AM VA-TOBACCO QUIT 15 YRS OR MORE [facility] Mar 02, 2017 07:35 AM QUIT TOBACCO >7 YEARS AGO [facility] May 25, 2016 05:48 AM CURRENT TOBACCO USER [facility] May 25, 2016 05:48 AM TOBACCO MEDS OFFER ED BUT DECLINED [facility] Jun 23, 2015 02:29 PM QUIT TOBACCO >7 YEARS AGO [facility] Sep 12, 2014 06:15 AM CURRENT TOBACCO USER [facility] Sep 12, 2014 06:15 AM QUIT TOBACCO >7 YEARS AGO [facility] Sep 12, 2014 06:15 AM TOBACCO MEDS OFFER ED BUT DECLINED [facility] Jun 25, 2013 02:47 PM QUIT TOBACCO >7 YEARS AGO [facility] May 04, 2010 12:36 PM LIFETIME NON-USER OF TOBACCO [facility] Jul 30, 2009 11:12 AM CURRENT TOBACCO USER [facility] Mar 20, 2008 01:00 PM CURRENT TOBACCO USER [facility] Mar 20, 2008 01:[address] OP SMOKING CLINIC [facility] Mar 20, 2008 01:00 PM TOBACCO OFFERRED P T MEDS (PROVIDER) [facility] Mar 06, 2007 10:38 AM QUIT TOBACCO >7 YEARS AGO [facility] May 09, 2006 09:29 AM CURRENT TOBACCO USER [facility] Aug 27, 2004 10:41 AM CURRENT TOBACCO USER [facility] Aug 27, 2004 10:41 AM SMOKER <10 [facility] Advance Directives: All historical and current Section Date Range: From patient's date of to the date document was created. This section includes ALL of a patient's completed or amended [place] Advance and Rescinded Directives. The entries below indicate that a directive exists for the patient, but an actual copy is not included with this document. The data comes from all [place] facilities. Date Advance Directives Provider Source Oct 21, 2022 FRANKLIN KO [facility] Sep 23, 2004 ADVANCE DIRECTIVE CJ RUDOLPH [facility] May 24, 2004 ADVANCE DIRECTIVE MITCH ZEE IS [facility] May 24, 2000 ADVANCE DIRECTIVE MICHELE CENTENO IS [facility] Nov 11, 1996 ADVANCE DIRECTIVE VIDALMAGGIE [facility] December 08, 1995 ADVANCE DIRECTIVE KI SANTOYO [facility] Radiology Reports: +/- 30 days of [...] the Encounter. The data comes from all [place] treatment facilities. Date/Time Radiology Report Provider Source Apr 08, 2024 03:15 PM CHEST X-RAY, 2 VIE WS: BETTY HAAS [id number] -1970 M Exm Date: APR 08, 2024@15:15 Req Phys: NOAH SANCHEZ Loc: [facility]-PRE-OP EVAL NURSING AM (Req Img Loc: [facility]-MAIN RADIOLOGY SUITE Service: [address] [address] (Case [id number] COMPLETE) CHEST X-RAY, 2 VIEWS (RAD Detailed) CPT:86479 Reason for Study: pre-op Clinical History: Report Status: Verified Date Reported: APR 08, 2024 Date Verified: APR 08, 2024 Magisterial District Judge E-Sig:/ES/Franklin Hartley MD. FACR. Report: History: pre-op. Comparison: Prior chest examination-03/24/2023. Technique: PA and lateral views. Findings: No pulmonary consolidation, pleural effusion, pneumothorax, cardiomegaly or pulmonary edema is seen. Impression: No acute cardiopulmonary disease is seen. Primary Interpreting Staff: Franklin Hartley MD. FACR, Neuroradiologist (Magisterial District Judge) /FRANKLIN KENDALL [facility] Pathology Reports: +/- 30 days [...] the Encounter. The data comes from all [place] treatment facilities. Date/Time Pathology Report Provider Source [...] Performing Laboratory: Surgical Pathology Report Performed By: [facility] [address] [facility]# [id number] 5 [facility] [address] [place] [address] $FTR - - - - - - - - - - - - - - - - - - - - - - - - - - - - - - - - - - - - - - - - (End of report) CHRISTY MALCOLM MD [facility] Date Apr 23, 2024 - - - - - - - - - - - - - - - - - - - - - - - - - - - - - - - - - - - - - - - - BETTY HAAS STANDARD FORM 515 ID:[id number] SEX:M :1970 AGE: 54 LOC:[facility] PCP: Yonathan Coronel NP /los/ CHRISTY MALCOLM Pathologist Signed: 04/23/2024 14:03 CHRISTY MALCOLM [facility] Apr 08, 2024 03:00 PM LR MICROBIOLOGY RE PORT: Accession [UID]: [id number] [[id number]] Received: Apr 08, 2024@15:27 Collection sample: URINE,CLEAN CATCH Collection date: Apr 08, 2024 15:00 Site/Specimen: URINE Provider: NOAH SANCHEZ Test(s) ordered: C&S URINE.................... . completed: Apr 09, 2024 22:40 * BACTERIOLOGY FINAL REPORT => Apr 09, 2024 22:47 TECH CODE: [id number] CULTURE RESULTS: STREP. AGALACTIAE, GRP. B - Quantity: >25,000 - <50,000 CFU/ML Comment: There will be no work up. Bacteriology Remark(s): -- RYAN 04/09/24 -- >25,000 - <50,000 CFU/ML S. AGAL - There will be no work up. <10,000 CFU/ML MIXED GRAM POSITIVE ORGANISM There will be no work up. =--=--=--=--=--=--=--=--= --=--=--=--=--=--=--=--=- -=--=--=--=--=--=--=--=-- =-- Performing Laboratory: Bacteriology Report Performed By: [facility] CLIA# [id number] [address] [facility] [address] [place] [address] LUANA CINTRON [facility] Encounter Notes: All associated encounter notes This section contains the clinical notes associated to the Encounter. Date/Time Encounter Note(s) Provider Source Apr 30, 2024 03:48 PM PSYCHOLOGY NOTE: LOCAL TITLE: TRP PSYCHOTHERAPY ST STANDARD TITLE: PSYCHOLOGY NOTE DATE OF NOTE: APR 30, 2024@15:48 ENTRY DATE: APR 30, 2024@15:48:59 AUTHOR: FRANKLIN HASSAN EXP COSIGNER: URGENCY: STATUS: COMPLETED PCT Psychotherapy Tracking [...] indiv. psychotherapy TIME SPENT WITH PATIENT (Minutes): 53 SESSION NUMBER: SESSION FORMAT: [ ] Oxmt-sb-Lcry [ X] Video Telehealth [ ] Phone GOALS: The following goals were developed using shared decision-making with input by the [place]- Presents with complicated mix of medical, trauma-based/psychiatric [...] developments since last contact [X ] Specify: Mood is fairly good today. Reports a spate of NMs on events we have discussed before, but also notes other really weird dreams that clipper and turner to be quite normal/not trauma dreams. Had the penile implant and though he is struggling through the end of the recovery, he is hopeful that after many years of abstinence, he can be intimate with spouse again which addresses a major identity hit that he has been depressed about along with his many other disabilities. Struggles with health, identity issues, and hopelessness as those limitations grow, but this development, along with some events he is greatly looking forward to (some travel/hunting season), he is feeling better. TYPE OF INTERVENTIONS PROVIDED BY THERAPIST: [ ]Rapport Building [ ] Shared decision-making regarding goals of care [X ] Psychotherapy (Specify modality): Present centered therapy/solution psychotherapy [ ] Health Psychology Interventions [ ] Graduation Planning [ ] Other: DESCRIPTION OF INTERVENTIONS PROVIDED BY THERAPIST: Present Centered work today and reinforcing the changes he has made and things he is looking forward to. Address the NMs but they are not overtaking the positive emotional tones in terms of developments and a future he is looking forward to in spite of his challenges. Cont. to reinforced the 's proactive steps towards constructive coping and problem-solving. ASSESSMENT MEASURES USED THIS SESSION: Measures/Scores: [ ] Results are located in Mental Health Diagnostic Study Note Measures not collected/administered this session: Rationale and plan for next administration: X future session OR, Efforts made to increase measurement: ___ Symptom review completed in Progress Towards Goals MENTAL STATUS/PRESENTATION: sounds euthymic with approp. affect today. Cont. to flatly deny active SI/HI, plans or intentions and is practicing active gun safety/safe storage. In aggregate, and spite of struggles with [...] of relevant risk and protective factors, the did NOT appear to be at imminent risk for suicide or homicide at this time and IS sustainable at the current level of care. -Comments: [ ] [facility] IS considered to be at INCREASED RISK for suicide or homicide based upon: -Actions/interventions taken to address risk and prevent harm include: -Emergency protocols initiated were: -Comments: Emergency Services: [place] voiced understanding and willingness to go to the [place] emergency room during crisis or to utilize nearest hospital emergency services as needed. has been given the [facility]'s Crisis Hotline number. MEASURABLE TREATMENT GOALS FOR THIS EPISODE OF CARE: To reduce PTSD and depressive/adjustment symptoms and impairments in functioning COLLABORATIVE RECOMMENDATIONS/PLAN: Assigned Therapy Tasks: [ X] Collaboratively discussed outcomes related to assessment and treatment progress. Based on this discussion: [ ] No changes to plan of care. expressed agreement with therapy tasks and [id number]-[id number] plan. [X ] Recommend changes to plan of care: Reviewed proposed changes. Discussed potential benefits, risks, and complications. We will be tightening the session interval temporarily until such time as we collaboratively feel he can go back to normal interval. [place] agreed to proceed with changes. [ X] YES [ ] NO Comments: RTC on 06/25/24@1500 via C /los/ FRANKLIN HASSAN PSY.D. Psychologist, [facility] Signed: 04/30/2024 15:58 FRANKLIN HASSAN [facility]
--- OUTSIDE RECORDS SUMMARY | 2024-11-30 15:25 | XMS_ITS | Encounter Summary ---
Author Name [facility] Organization [facility] Address [address] [place] [address] Care Team Providers Care Appeals Rn Name Role Phone YONATHAN LINDSAY Primary Care Provider OMEGA Bethea Unavailable Unavailable Selected Encounter This section includes the information on record at [facility] for the Encounter. Date/Time Encounter Type Encounter Description Reason Pro vider Source November 29, 2024 07:52 PM Outpatient Encounter TELEPHONE TRIAGE IHE Encounter Template Text not used by [facility] Plan of Treatment: Future Appointments (+ 6 months) and Future Tests (+/- 45 days) The Plan of Treatment section includes future care activities for the patient from all ID treatmentfacilities. This section includes future appointments and future orders which are active, pending or scheduled. Future Appointments This section includes appointments that were scheduled to occur 6 months from the date of the Encounter, up to a maximum of 20 appointments. The data comes from all ID treatment facilities. Appointment Date/Time Appointment Type Appointme nt Facility Name December 16, 2024 02:30 PM AMBULATORY - MEDICINE [facility] December 17, 2024 02:00 PM AMBULATORY - PSYCHIATRY [facility] Jan 13, 2025 11:15 AM AMBULATORY - MEDICINE [facility] Feb 13, 2025 02:00 PM AMBULATORY - MEDICINE [facility] Mar 24, 2025 10:30 AM AMBULATORY - NONE [facility] Apr 11, 2025 11:00 AM AMBULATORY - MEDICINE [facility] Lab Results: +/- 30 days of the encounter This section includes the Chemistry and Hematology Lab Results on record with [facility] for the patient. Radiology Reports and Pathology Reports are provided separately, in subsequent sections. Lab Results This section contains the Chemistry/Hematology Results that were resulted 30 days before or 30 daysafter the date of the Encounter. Date/Time Source Result Type Result - Unit Interpretation Reference Range Specimen Type Comment Nov 13, 2024 02:35 PM [facility] HGA1C BLOOD Specimen Type: BLOOD No comment entered. Ordering Provider: RAKEL TORRES Report Released Date/Time: Nov 13, 2024 02:28 PM Reporting Lab: [address] [address] Performing Lab: [address] [address] HGA1C 7.5 H 4.0-6.0 Nov 13, 2024 02:35 PM [facility] VITAMIN D, 25-HYDROXY SERUM Specimen Type: SE RUM No comment entered. Ordering Provider: RAKEL TORRES Report Released Date/Time: Nov 13, 2024 02:33 PM Reporting Lab: [place] [address] [facility] [address] Performing Lab: [address] [id number] VITAMIN D, 25-HYDROXY 35.4 ng/mL 30- Social History: Smoking Status (Most current) and Tobacco Use (All prior to encounter date) This section includes the most current, and the historical, smoking and tobacco- related health factors from the ID facility where the Encounter took place. Current Smoking Status This section includes the most current smoking, or tobacco-related health factor, from the ID facility where the Encounter took place. Date/Time Current Smoking Status Comment Facility May 26, 2000 01:36 PM CURRENT NON-TOBACC O USER-HX OF USE stop smoking 10yrs ago,started smoking at 14yrs,smoked 2packs a day [facility] Tobacco Use History This section includes a history of the smoking, or tobacco-related health factors, that were collected on or before the date of the Encounter. The data comes from the ID facility where the Encounter took place. Date/Time Smoking Status/Tobacco Use Comment F acility Mar 07, 2000 12:35 PM CURRENT NON-TOBACC O USER-HX OF USE [facility] Advance Directives: All historical and current Section Date Range: From patient's date of to the date document was created. This section includes ALL of a patient's completed or amended [facility] Advance and Rescinded Directives. The entries below indicate that a directive exists for the patient, but an actual copy is not included with this document. The data comes from all [facility]. Date Advance Directives Provider Source Oct 21, 2022 FRANKLIN KO [facility] Sep 23, 2004 ADVANCE DIRECTIVE CJ RUDOLPH [facility] May 24, 2004 ADVANCE DIRECTIVE MITCH ZEE Kena [facility] May 24, 2000 ADVANCE DIRECTIVE MICHELE CENTENO [facility] Nov 11, 1996 ADVANCE DIRECTIVE MAGGIE DRAKE [facility] December 08, 1995 ADVANCE DIRECTIVE KI SANTOYO [facility] Radiology Reports: +/- 30 days of [...] the Encounter. The data comes from all [facility] treatment facilities. Date/Time Radiology Report Provider Source Nov 13, 2024 12:14 PM US ABDOMEN COMPLET E W/BLOOD FLOW DOPPLER (STL): BETTY HAAS [id number] -[id number] M Exm Date: NOV 13, 2024@12:14 Req Phys: NIKA SANCHEZ Loc: [place] (Req'g Lo Img Loc: [place]ULTR[facility]OUND [place] Service: [facility] [address] [place] [address] (Case [id number] COMPLETE) US ABDOMEN LTD, SINGLE ORG OR CHRITSIN(US Detailed) CPT:59910 Reason for Study: HCC surveillance (Case [id number] COMPLETE) US BLOOD FLOW ABD/RENAL DOPPLER ((US Detailed) CPT:65757 Clinical History: Report Status: Verified Date Reported: NOV 13, 2024 Date Verified: NOV 13, 2024 Apparatus Operator E-Sig:/ES/RAFAEL WILDER Report: Case [id number], [id number]. US ABDOMEN LTD, SINGLE ORG OR QUADRANT, [...] Primary Interpreting Staff: RAFAEL WILDER, Diagnostic Radiologist (Apparatus Operator) Primary Interpreting Resident: CHRISTINA MALAGON, Vascular & Interventional Hides Soaker /[facility] Encounter Notes: All associated encounter notes This section contains the clinical notes associated to the Encounter. Date/Time Encounter Note(s) Provider Source November 29, 2024 07:52 PM RN PROGRESS NOTE: LOCAL TITLE: [facility]: CLINICAL TRIAGE STANDARD TITLE: RN PROGRESS NOTE DATE OF NOTE: NOVEMBER 29, 2024@19:52:07 ENTRY DATE: NOVEMBER 29, 2024@19:52:07 AUTHOR: Brenda HOLT COSIGNER: URGENCY: STATUS: COMPLETED Caller Verification Caller/Recipient Relation to Patient: Self Caller Name: BETTY HAAS Emergency Contact: ALICJA HAAS Nursing Plan and Disposition Other course(s) of action Generated msg to PACT/Provider Provided guidance for worsening symptoms: *Caller/Patient* advised to call facilities [facility] Clinical Contact Center or seek immediate medical attention for new or worsening symptoms Clinical Contact Center Codes Clinic/Location: 5 [facility] PHONE CCC RN Notes Notes & Information: [place] calls stating that he is on his way to [facility] in his community. He reports having no bowel movement for 4 days and abdominal pain. He states, I think I have another blockage. Advised that PACT will be alerted to this call for follow up. Discussed non-VA reporting hotline. verbalizes understanding. Denies further questions or concerns at this time. IMPORTANT: This note was created by [facility] Clinical Contact Center staff. Please do not alert the staff member by adding them as a signer for future communications. Alerts are not monitored by this user. /los/ TE HOLT [facility] TRIAGE NURSE Signed: 11/29/2024 19:52 Receipt Acknowledged By: * AWAITING SIGNATURE * JAREN WILDER * AWAITING SIGNATURE * ANNABELLA PIPER AN GELA M [facility]
--- OUTSIDE RECORDS SUMMARY | 2024-11-30 15:25 | XMS_ITS | Encounter Summary ---
Author Name [facility] [place] [facility] [place] [place] Address [address] [place] [address] Care Team Providers Care Diamond Assorter Name Role Phone YONATHAN LINDSAY Primary Care Provider OMEGA Bethea Unavailable Unavailable Selected Encounter This section includes the information on record at [place] for the Encounter. Date/Time Encounter Type Encounter Description Reason Provider Source Nov 01, 2024 01:00 PM OFFICE O/P EST LOW 20 [facility] ICD-10-CM N52.9 Male erectile dysfunction, unspecified JAZMINE DUFF Yumi Encounter Template Text not used by [place] Assessments - Encounter Diagnoses This section includes the primary and secondary diagnoses documented for the Encounter. Date/Time Primary/Secondary Diagnosis Diagnosis Name Provider Source Nov 07, 2024 02:50 PM PRIMARY Male erectile dysfunction, unspecified Ashia RODRÍGUEZ [facility] Plan of Treatment: Future Appointments (+ 6 months) and Future Tests (+/- 45 days) The Plan of Treatment section includes future care activities for the patient from all [place] treatmentfacilities. This section includes future appointments and future orders which are active, pending or scheduled. Future Appointments This section includes appointments that were scheduled to occur 6 months from the date of the Encounter, up to a maximum of 20 appointments. The data comes from all [place] treatment facilities. Appointment Date/Time Appointment Type Appointme nt Facility Name Nov 13, 2024 12:00 PM AMBULATORY - NONE [facility] Nov 13, 2024 02:00 PM AMBULATORY - MEDICINE [facility] November 29, 2024 11:15 AM AMBULATORY - REHAB MEDICIN E [facility] December 16, 2024 02:30 PM AMBULATORY - MEDICINE [facility] December 17, 2024 02:00 PM AMBULATORY - PSYCHIATRY [facility] Jan 13, 2025 11:15 AM AMBULATORY - MEDICINE [facility] Feb 13, 2025 02:00 PM AMBULATORY - MEDICINE [facility] Mar 24, 2025 10:30 AM AMBULATORY - NONE [facility] Apr 11, 2025 11:00 AM AMBULATORY - MEDICINE [facility] Active, Pending, and Scheduled Orders This section includes a listing of several types of active, pending, and scheduled orders, including clinic medications orders, diagnostic test orders, procedure orders and consult orders; where the start date of the order is 45 days before the date of the Encounter or 45 days after the date of theEncounter. The data comes from all [place] treatment facilities. Test Date/Time Test Type Test Details Facility Name Oct 07, 2024 11:59 AM Consult Order [facility] Cons Loss Control Manager's Choice [facility] Oct 07, 2024 11:59 AM Consult Order [facility] Cons Loss Control Manager's [facility] Lab Results: +/- 30 days of the encounter This section includes the Chemistry and Hematology Lab Results on record with [place] for the patient. Radiology Reports and Pathology Reports are provided separately, in subsequent sections. Lab Results This section contains the Chemistry/Hematology Results that were resulted 30 days before or 30 daysafter the date of the Encounter. Date/Time Source Result Type Result - Unit Interpretation Reference Range Specimen Type Comment Nov 13, 2024 02:35 PM [facility] VITAMIN D, 25-HYDROXY SERUM Specimen Type: SERUM No comment entered. Ordering Provider: RAKEL TORRES Report Released Date/Time: Nov 13, 2024 02:33 PM Reporting Lab: [address] [address] Performing Lab: [facility] [address] [facility] [address] VITAMIN D, 25-HYDROXY 35.4 ng/mL 30-96 Nov 13, 2024 02:35 PM [facility] HGA1C BLOOD Specimen Type: BLOOD No comment entered. Ordering Provider: RAKEL TORRES Report Released Date/Time: Nov 13, 2024 02:28 PM Reporting Lab: [facility] [address] [facility] [address] Performing Lab: [facility] [address] [facility] [facility] [address] HGA1C 7.5 H 4.0-6.0 Oct 25, 2024 11:20 AM [facility] PT/INR NEW (L-MA) PLASMA Specimen Type: PLAS MA No comment entered. Ordering Provider: NIKA SANCHEZ Report Released Date/Time: Oct 25, 2024 10:53 AM Reporting Lab: [facility] [address] [facility] [address] Performing Lab: [facility] [address] [facility] [address] PROTIME 12.5 s 9.4-12.5 INR VALUE 1.1 {INR} Oct 25, 2024 11:20 AM [facility] CONJ. BILIRUBIN PLASMA Specimen Type: PLASM A Comment: LDL calculation invalid when Triglyceride exceeds 250 mg/dl Ordering Provider: NIKA SANCHEZ Report Released Date/Time: Oct 25, 2024 10:53 AM Reporting Lab: [facility] [address] [facility] [address] Performing Lab: [facility] [address] [facility] [address] CONJ. BILIRUBIN 0.2 mg/dL 0-0.5 Oct 25, 2024 11:20 AM [facility] ALPHA-FETOPROTEIN(L-PB) PLASMA Specimen Type : PLASMA No comment entered. Ordering Provider: NIKA SANCHEZ Report Released Date/Time: Oct 25, 2024 10:53 AM Reporting Lab: [address] [address] Performing Lab: [address] [address] ALPHA-FETOPROTEIN(STL-PB) <2.00 ng/mL L 1- 8.78 Oct 25, 2024 11:20 AM [facility] LIPID PANEL (STL) PLASMA Specimen Type: PLASM A Comment: LDL calculation invalid when Triglyceride exceeds 250 mg/dl Ordering Provider: NIKA SANCHEZ Report Released Date/Time: Oct 25, 2024 10:53 AM Reporting Lab: [address] [address] Performing Lab: [address] [address] CHOLESTEROL 158 mg/dL 0-200 TRIGLYCERIDE 401 mg/dL H 0-150 DIRECT LDL 73 mg/dL L >100 CALCULATED LDL comment mg/dL HDL(New) 38 mg/dL L >40 Oct 25, 2024 11:20 AM [facility] COMPREHENSIVE METABOLIC PANEL PLASMA Specimen Type: PLASMA Comment: LDL calculation invalid when Triglyceride exceeds 250 mg/dl Ordering Provider: NIKA SANCHEZ Report Released Date/Time: Oct 25, 2024 10:53 AM Reporting Lab: [address] [address] Performing Lab: [address] [address] CREATININE 0.70 mg/dL 0.7-1.3 UREA NITROGEN 13.9 [...] 108.1 >60 Oct 25, 2024 11:20 AM [facility] CBC BLOOD Specimen Type: BLOOD No comment entered. Ordering Provider: NIKA SANCHEZ Report Released Date/Time: Oct 25, 2024 10:53 AM Reporting Lab: [facility] [address] [address] Performing Lab: [facility] [address] [facility] [address] WBC 5.4 10*3/uL 3.6-11.2 RBC 5.06 10*6/uL [...] 0.60 BASOPHILS, ABSOLUTE 0.04 10*3/uL 0.00-0. 20 Vital Signs: All taken on the encounter date This section contains inpatient and outpatient Vital Signs collected on the date of the Encounter. Date/Time Temperature Pulse Blood Pressure Respiratory Rate SP02 Pain Height Weight Body Mass Index Source Nov 01, 2024 03:48 PM 97 75 126/79 18 96 277.9 38 [facility] Social History: Smoking Status (Most current) and Tobacco Use (All prior to encounter date) This section includes the most current, and the historical, smoking and tobacco- related health factors from the [place] facility where the Encounter took place. Current Smoking Status This section includes the most current smoking, or tobacco-related health factor, from the [facility] where the Encounter took place. Date/Time Current Smoking Status Comment Facility May 26, 2000 01:36 PM CURRENT NON-TOBACC O USER-HX OF USE stop smoking 10yrs ago,started smoking at 14yrs,smoked 2packs a day [facility] Tobacco Use History This section includes a history of the smoking, or tobacco-related health factors, that were collected on or before the date of the Encounter. The data comes from the [facility] where the Encounter took place. Date/Time Smoking Status/Tobacco Use Comment F acility Mar 07, 2000 12:35 PM CURRENT NON-TOBACC O USER-HX OF USE [facility] Advance Directives: All historical and current Section Date Range: From patient's date of to the date document was created. This section includes ALL of a patient's completed or amended [place] Advance and Rescinded Directives. The entries below indicate that a directive exists for the patient, but an actual copy is not included with this document. The data comes from all [facility]. Date Advance Directives Provider Source Oct 21, 2022 FRANKLIN KO [facility] Sep 23, 2004 ADVANCE DIRECTIVE CJ RUDOLPH [facility] May 24, 2004 ADVANCE DIRECTIVE MITCH ZEE [facility] May 24, 2000 ADVANCE DIRECTIVE MICHELE CENTENO [facility] Nov 11, 1996 ADVANCE DIRECTIVE MAGGIE DRAKE [facility] December 08, 1995 ADVANCE DIRECTIVE KI SANTOYO [facility] Radiology Reports: +/- 30 days [...] the Encounter. The data comes from all [place] treatment facilities. Date/Time Radiology Report Provider Source Nov 13, 2024 12:14 PM US ABDOMEN COMPLET E W/BLOOD FLOW DOPPLER (STL): BETTY HAAS [id number] -[id number] M Exm Date: NOV 13, 2024@12:14 Req Phys: NIKA SANCHEZ Loc: [facility] (Req'g Lo Img Loc: [facility] [place] Service: Unknown [facility] [address] [place] [address] (Case [id number] COMPLETE) US ABDOMEN LTD, SINGLE ORG OR CHRISTIN(US Detailed) CPT:56293 Reason for Study: HCC surveillance (Case [id number] COMPLETE) US BLOOD FLOW ABD/RENAL DOPPLER ((US Detailed) CPT:35494 Clinical History: Report Status: Verified Date Reported: NOV 13, 2024 Date Verified: NOV 13, 2024 Property Supervisor E-Sig:/ES/RAFAEL WILDER Report: Case [id number], [id number]. US ABDOMEN LTD, SINGLE ORG OR QUADRANT, [...] Primary Interpreting Staff: RAFAEL WILDER, Diagnostic Radiologist (Property Supervisor) Primary Interpreting Resident: CHRISTINA MALAGON, Vascular & Interventional Gauge And Instrument Inspector /RAFAEL PALOMINO [facility] Encounter Notes: All associated encounter notes This section contains the clinical notes associated to the Encounter. Date/Time Encounter Note(s) Provider Source Nov 01, 2024 01:28 PM UROLOGY NOTE: LOCAL TITLE: UROLOGY NOTE STANDARD TITLE: UROLOGY NOTE DATE OF NOTE: NOV 01, 2024@13:28 ENTRY DATE: NOV 01, 2024@13:28:20 AUTHOR: KIM RODRÍGUEZ COSIGNER: JAZMINE DUFF URGENCY: STATUS: COMPLETED CHIEF COMPLAINT, HPI, EXAM & DATA CC: ED HPI: 54 yo M with hx of ED s/p IPP, 03/2024 # Erectile Dysfunction, s/p IPP - no issues with healing, device activated and functional - completed frequent daily cycling with device, often left device inflated for hours at a time - no current concerns about pain with device - persistent concern about penile length, disappointing his partner ROS/PMH Denies F/C/N/V/CP/SOB Remainder of PMH listed below and reviewed? Yes TARGETED PHYSICAL EXAM: Gen: NAD Resp: NLB Abd: s/nt/nd Ext: WWP Neuro: non-focal Skin: warm and dry : well-healed incision, IPP cylinders in place in phallus PVR (by scan): n/a CREATININE:CREATININE 0.70 mg/dL 10/25/2024 11:20 PSA: PROST. SPECIFIC AG.(PB-STL) 0.388 ng/mL 05/15/2023 15:37 IMAGING: none ASSESS MENT AND PLAN ---- 54 yo M with hx of ED s/p IPP, 03/2024 # ED s/p IPP - no current concerns with device function - counseled no strong indication to continue daily cycling - reviewed return precations re: device malfunction, infection FOLLOW-UP: - RTC with Urology PRN (MORE INFORMATION) --- * LABS----- PSA Trend: PROST. SPECIFIC AG.(PB-STL) 0.388 ng/mL 05/15/2023 15:37 PROST. SPECIFIC AG.(PB-STL) 0.578 ng/mL 04/25/2022 14:44 PROST. SPECIFIC AG.(PB-STL) 0.719 ng/mL 04/09/2021 12:43 BMP: SODIUM 133 L mEq/L 10/25/2024 11:20 POTASSIUM 3.7 mEq/L 10/25/2024 11:20 CHLORIDE 102 mEq/L 10/25/2024 11:20 UREA NITROGEN 13.9 mg/dL 10/25/2024 11:20 CREATININE 0.70 mg/dL 10/25/2024 11:20 CALCIUM 8.7 mg/dL 10/25/2024 11:20 CARBON DIOXIDE 18 L mEq/L 10/25/2024 11:20 GLUCOSE 352 H mg/dL 10/25/2024 11:20 EGFR (CKD-EPI 2020) 108.1 10/25/2024 11:20 CBC: WBC 5.4 10*3/uL 10/25/2024 11:20 RBC 5.06 10*6/uL 10/25/2024 11:20 HGB 16.1 g/dL 10/25/2024 11:20 HCT 45.6 % 10/25/2024 11:20 MCV 90.1 fL 10/25/2024 11:20 MCH 31.8 pg 10/25/2024 11:20 MCHC 35.3 g/dL 10/25/2024 11:20 RDW 12.5 % 10/25/2024 11:20 PLT 161 10*3/uL 10/25/2024 11:20 MPV 10.5 fL 10/25/2024 11:20 NEUTROPHILS, AUTO % 61 % 10/25/2024 11:20 LYMPHOCYTES, AUTO % 30 % 10/25/2024 11:20 MONOCYTES, AUTO % 6 % 10/25/2024 11:20 EOSINOPHILS, AUTO % 2 % 10/25/2024 11:20 BASOPHILS, AUTO % 1 % 10/25/2024 11:20 NEUTROPHILS, ABSOLUTE 3.29 10*3/uL 10/25/2024 11:20 LYMPHOCYTES, ABSOLUTE 1.60 10*3/uL 10/25/2024 11:20 MONOCYTES, ABSOLUTE 0.31 10*3/uL 10/25/2024 11:20 EOSINOPHILS, ABSOLUTE 0.10 10*3/uL 10/25/2024 11:20 BASOPHILS, ABSOLUTE 0.04 10*3/uL 10/25/2024 11:20 UA: URINE COLOR Colorless 09/12/2023 21:20 APPEARANCE Clear 09/12/2023 21:20 U.PH 6.5 09/12/2023 21:20 U.BILIRUBIN Negative mg/dL 09/12/2023 21:20 U.NITRITE Negative mg/dL 09/12/2023 21:20 PAST MEDICAL, SOCIAL, FAMILY HX AND ROS 1) Abnormal results of liver function studies 2) Diverticulitis 3) Erectile dysfunction 4) Obesity 5) Chest pain 6) Sensory-neural hearing loss 7) Back pain (SNOMED CT 403690333) 8) Benign hypertension (SNOMED CT 66135654) 9) Convulsion 10) Male hypogonadism 11) Conversion disorder (SNOMED CT 452537909) 12) Testicular hypofunction 13) Osteoarthritis of right [...] FROM ALL MEDS. Indication: FOR PAIN 2) BETAMETHASONE DIPROPIONATE 0.05% OINT APPLY LIGHTLY [...] ACTIVE ONCE A DAY Indication: FOR FIBROMYALGIA 6) [...] DOSE. Indication: FOR LOW BLOOD SUGAR 9) DULOXETINE HCL 60MG EC CAP TAKE ONE CAPSULE BY MOUTH ONCE A ACTIVE DAY DO NOT ABRUPTLY DISCONTINUE MEDICATION. Indication: FOR PTSD/MOOD/ANXIETY/PAIN 10) EMPAGLIFLOZIN 25MG TAB TAKE ONE TABLET BY MOUTH ONCE A DAY ACTIVE 11) EZETIMIBE 10MG TAB TAKE ONE TABLET BY MOUTH ONCE A DAY TO ACTIVE LOWER CHOLESTEROL 12) GLIPIZIDE 5MG TAB TAKE ONE TABLET BY MOUTH TWO TIMES A DAY ACTIVE BEFORE MEALS TAKE 30 MINUTES BEFORE EATING. Indication: FOR DIABETES 13) GLUCOSE SENSOR FREESTYLE BREN 3 PLUS USE SENSOR EVERY 15 ACTIVE DAYS Indication: FOR BLOOD GLUCOSE MONITORING 14) HYDROXYZINE HCL 25MG TAB TAKE ONE TABLET BY MOUTH THREE ACTIVE TIMES A DAY NEEDED *MAY CAUSE DROWSINESS* Indication: FOR ANXIETY 15) LIDOCAINE 5% PATCH APPLY 1 PATCH TO SKIN SITE NIGHTLY ACTIVE NEEDED . MAY USE 1-3 PATCHES. PATCHES MAY BE CUT TO FIT ONTO FEET. APPLY PATCH AND PRESS FIRMLY FOR 10-15 SECONDS. KEEP ON FOR 12 HOURS THEN REMOVE PATCH FOR 12 HOURS. Indication: FOR PAIN 16) METFORMIN HCL 500MG 24HR SA TAB TAKE FOUR TABLETS BY MOUTH ACTIVE ONCE A DAY FOR BLOOD SUGAR CONTROL. TAKE WITH FOOD. AVOID ALCOHOL. DISCONTINUE BEFORE GETTING XRAY DYE. 17) OLODATEROL/TIOTROP 2.5MCG/ACTUAT 60D INH INHALE 2 PUFFS BY ACTIVE ORAL INHALATION ONCE A DAY ADMINISTER AT SAME TIME EACH DAY Indication: FOR COPD 18) PRAZOSIN HCL 2MG CAP TAKE THREE CAPSULES BY MOUTH AT BEDTIME ACTIVE/PARKED MAY CAUSE DIZZINESS OR DROWSINESS. Indication: FOR NIGHTMARES 19) PREGABALIN 300MG ORAL CAP TAKE ONE CAPSULE BY MOUTH TWICE A ACTIVE DAY *MAY CAUSE DROWSINESS* Indication: FOR FIBROMYALGIA 20) SALONPAS PAIN RELIEF PATCH APPLY 1 PATCH TO SKIN SITE EVERY ACTIVE EIGHT(8) HOURS NEEDED (EXTERNAL USE ONLY) Indication: FOR PAIN 21) SEMAGLUTIDE 2MG/0.75ML INJ PEN 3ML INJECT 2MG UNDER THE SKIN ACTIVE EVERY WEEK Indication: FOR DIABETES 22) SINUS RINSE NEILMED PKT USE 1 PACKET NOSTRIL(S) ONCE A DAY ACTIVE Indication: FOR NASAL CONGESTION 23) SINUS RINSE NEILMED REGULAR KIT USE 1 KIT NOSTRIL(S) ONCE A ACTIVE DAY Indication: FOR NASAL CONGESTION 24) SODIUM CHLORIDE 0.65% SOLN NASAL SPRAY USE 1 SPRAY INTO ACTIVE NOSTRIL(S) EVERY 4 HOURS NEEDED Indication: FOR NASAL CONGESTION 25) TRAZODONE HCL 100MG TAB TAKE TWO TABLETS BY MOUTH AT BEDTIME ACTIVE Indication: FOR DEPRESSION Active Non-VA Medications Status 1) Non-VA TRIAMCINOLONE ACETONIDE 0.025% CREAM SPARINGLY TO ACTIVE AFFECTED AREA(S) TWICE A DAY Indication: FOR ATOPIC DERMATITIS 26 Total Medications Allergies: NIACIN, SIMVASTATIN, COREG 25MG TABLET, PRAVASTATIN, SHRIMP, ATORVASTATIN ROSUVASTATIN, LOVASTATIN, PITAVASTATIN /los/ JAKE RODRÍGUEZ MD UROLOGY RESIDENT PHYSICIAN Signed: 11/06/2024 23:57 /es/ JAZMINE DUFF MD Staff Physician, Urology Cosigned: 11/08/2024 14:12 IKM RODRÍGUEZ [facility]
--- OUTSIDE RECORDS SUMMARY | 2024-11-30 15:25 | XMS_ITS | Encounter Summary ---
Author Name [facility] [facility] [place] [facility] [place] Address [address] [place] [address] Care Team Providers Care Bridge Inspector Name Role Phone YONATHAN LINDSAY Primary Care Provider OMEGA Bethea Unavailable Unavailable Selected Encounter This section includes the information on record at [place] for the Encounter. Date/Time Encounter Type Encounter Description Reason Provider Source December 19, 2023 01:00 PM OFF/OP CNSLTJ NEW/EST LOW 30 GASTROENTEROLOGY ICD-10-CM K75.81 Nonalcoholic steatohepatitis (QUIJANO) MOE JUNE IHYumi Encounter Template Text not used by [place] Assessments - Encounter Diagnoses This section includes the primary and secondary diagnoses documented for the Encounter. Date/Time Primary/Secondary Diagnosis Diagnosis Name Provider Source December 19, 2023 02:12 PM PRIMARY Nonalcoholic steatohepatitis (QUIJANO) KOSTA SOTO [facility] December 19, 2023 02:12 PM SECONDARY Constipation, unspecified KOSTA SOTO [facility] Plan of Treatment: Future Appointments (+ [...] Appointment Type Appointme nt Facility Name December 21, 2023 04:00 PM AMBULATORY - PSYCHIATRY [facility] Jan 01, 2024 07:02 PM AMBULATORY - MEDICINE [facility] Jan 11, 2024 10:15 AM AMBULATORY - MEDICINE [facility] Jan 15, 2024 11:15 AM AMBULATORY - MEDICINE [facility] Jan 15, 2024 01:00 PM AMBULATORY - NONE [facility] Jan 30, 2024 10:00 AM AMBULATORY - SURGERY [facility] Jan 30, 2024 03:00 PM AMBULATORY - PSYCHIATRY [facility] Feb 02, 2024 02:30 PM AMBULATORY - PSYCHIATRY [facility] Feb 08, 2024 01:30 PM AMBULATORY - NONE [facility] Feb 13, 2024 10:00 AM AMBULATORY - NONE [facility] Feb 15, 2024 10:00 AM AMBULATORY - MEDICINE [facility] Feb 19, 2024 11:00 AM AMBULATORY - NONE [facility] Feb 23, 2024 10:30 AM AMBULATORY - MEDICINE [facility] Feb 26, 2024 03:00 PM AMBULATORY - MEDICINE [facility] Mar 05, 2024 03:00 PM AMBULATORY - PSYCHIATRY [facility] Mar 08, 2024 01:00 PM AMBULATORY - PSYCHIATRY [facility] Mar 26, 2024 03:00 PM AMBULATORY - PSYCHIATRY [facility] Apr 03, 2024 11:00 AM AMBULATORY - MEDICINE [facility] Apr 08, 2024 02:00 PM AMBULATORY - SURGERY [facility] Apr 09, 2024 01:00 PM AMBULATORY - NONE [facility] Active, Pending, and Scheduled Orders This [...] 12:00 AM Laboratory - Chemistry Order AMMONIA (L-MA) WHITE CAP EDTA PLASMA SP [facility] December 19, 2023 12:00 AM Laboratory - Chemistry Order ALPHA-1 ANTITRYPSIN (STL) GREEN LI/HEP BLD/PLAS PLASMA SP [facility] December 19, 2023 12:00 AM Laboratory - Chemistry Order ANTI-MITOCHONDRIAL AB (STL) GOLD/RED SST SERUM SP [facility] December 19, 2023 12:00 AM Laboratory - Chemistry Order ACTIN (SMOOTHMUSCLE) ANTIBODY IGG GOLD/RED SST SERUM SP [facility] December 19, 2023 12:00 AM Laboratory - Chemistry Order CERULOPLASMIN (L-PB) GOLD/RED SST SERUM [facility] Lab Results: +/- 30 days of [...] Type Comment December 14, 2023 11:58 AM [facility] B12 SERUM Specimen Type: SERUM No comment entered. Ordering Provider: SHELIA MOREIRA Report Released Date/Time: Nov 28, 2023 11:26 AM Reporting Lab: [facility] [address] [address] Performing Lab: [facility] [address] [address] B12 423 pg/mL 213-816 December 14, 2023 11:58 AM [facility] COMPREHENSIVE METABOLIC PANEL PLASMA Specimen Type: PLASMA Comment: No hemolysis noted. Ordering Provider: SHELIA MOREIRA Report Released Date/Time: Nov 28, 2023 11:26 AM Reporting Lab: [facility] [address] [address] Performing Lab: [facility] [address] [facility] [address] CREATININE 0.90 mg/dL 0.7-1.3 UREA NITROGEN 12.9 [...] 100.9 >60 December 14, 2023 11:58 AM [facility] CBC BLOOD Specimen Type: BLOOD No comment entered. Ordering Provider: SHELIA MOREIRA Report Released Date/Time: Nov 28, 2023 11:26 AM Reporting Lab: [address] [address] Performing Lab: [address] [address] WBC 5.9 10*3/uL 3.6-11.2 RBC 5.18 10*6/uL [...] 0.00-0. 20 December 14, 2023 11:57 AM [facility] HGA1C BLOOD Specimen Type: BLOOD No comment entered. Ordering Provider: RAKEL TORRES Report Released Date/Time: December 14, 2023 11:26 AM Reporting Lab: [facility] [address] [address] Performing Lab: [facility] [address] [place] [phone] HGA1C 6.8 H 4.0-6.0 December 14, 2023 11:57 AM [facility] VITAMIN D, 25-HYDROXY SERUM Specimen Type: SE RUM No comment entered. Ordering Provider: RAKEL TORRES Report Released Date/Time: December 14, 2023 11:35 AM Reporting Lab: [facility] [address] [address] Performing Lab: [facility] [address] [address] VITAMIN D, 25-HYDROXY 44.3 ng/mL 30-96 Vital Signs: All taken on the encounter date This section contains inpatient and outpatient Vital Signs collected on the date of the Encounter. Date/Time Temperature Pulse Blood Pressure Respiratory Rate SP02 Pain Height Weight Body Mass Index Source December 19, 2023 01:08 PM 97.7 74 132/79 16 94 0 278.1 38 [facility] Social History: Smoking Status (Most current) and Tobacco Use (All prior to encounter date) This section includes the most current, and the historical, smoking and tobacco- related health factors from the [place] facility where the Encounter took place. Current Smoking Status This section includes the most current smoking, or tobacco-related health factor, from the [place] facility where the Encounter took place. Date/Time Current Smoking Status Comment Facility May 26, 2000 01:36 PM CURRENT NON-TOBACC O USER-HX OF USE stop smoking 10yrs ago,started smoking at 14yrs,smoked 2packs a day [facility] Tobacco Use History This section includes a history of the smoking, or tobacco-related health factors, that were collected on or before the date of the Encounter. The data comes from the [place] facility where the Encounter took place. Date/Time Smoking Status/Tobacco Use Comment F acility Mar 07, 2000 12:35 PM CURRENT NON-TOBACC O USER-HX OF USE [facility] Advance Directives: All historical and current Section Date Range: From patient's date of to the date document was created. This section includes ALL of a patient's completed or amended [place] Advance and Rescinded Directives. The entries below indicate that a directive exists for the patient, but an actual copy is not included with this document. The data comes from all [facility]. Date Advance Directives Provider Source Oct 21, 2022 FRANKLIN KO [facility] Sep 23, 2004 ADVANCE DIRECTIVE CJ RUDOLPH [facility] May 24, [address] MITCH ZEE [facility] May 24, 2000 ADVANCE DIRECTIVE MICHELE CENTENO . [facility] Nov 11, 1996 ADVANCE DIRECTIVE MAGGIE DRAKE [facility] December 08, 1995 ADVANCE DIRECTIVE KI SANTOYO [facility] Radiology Reports: +/- 30 days of the [...] ABDOMEN LIMITED W/BLOOD FLOW DOPPLER: BETTY HAAS [id number] -1970 M Exm Date: JAN 15, 2024@12:42 Req Phys: KOSTA SOTO Loc: [place]-GI CONSULT (Req'g Loc) Img Loc: [facility]-ULTRASOUND Service: Unknown [facility], [address] [place] [address] (Case [id number] COMPLETE) US ABDOMEN LTD, SINGLE ORG OR CHRISTIN(US Detailed) CPT:48014 Reason for Study: elevated LFTs (Case [id number] COMPLETE) US BLOOD FLOW ABD/RENAL (LTD) (US Detailed) CPT:38372 Clinical History: Organ to Image: Liver Reason for exam: elevated LFTs Report Status: Verified Date Reported: JAN 15, 2024 Date Verified: JAN 15, 2024 Boring Machine Operator Vertical E-Sig:/ES/DUNIA LUNA Report: CASE #: [id number], [id number] EXAMINATION: Limited sonogram of the right upper [...] cholecystitis. Report dictated by Lucien Ruiz (residential care facility manager) I, Dunia Luna, have reviewed the images and report and concur with these findings. Primary Interpreting Staff: DUNIA LUNA MD (Boring Machine Operator Vertical) Primary Interpreting Resident: LUCIEN RUIZ MD /DUNIA MARTINES [facility] Jan 01, 2024 07:18 PM ANKLE,RIGHT, 3 VIEWS: BETTY HAAS [id number] -1970 M Exm Date: JAN 01, 2024@19:18 Req Phys: MONICA JULES Loc: [place]-EMERGENCY SWITCHBOARD MANAGER (Req'g Img Loc: [facility]-MAIN RADIOLOGY SUITE Service: Unknown [facility] [address] [place] [address] (Case [id number] COMPLETE) ANKLE,RIGHT, 3 VIEWS (RAD Detailed) CPT:92928 Proc Modifiers : RIGHT Reason for Study: Fell Clinical History: Right anterior aspect just proximal of mid-point Report Status: Verified Date Reported: JAN 01, 2024 Date Verified: JAN 01, 2024 Boring Machine Operator Vertical E-Sig: Report: KNEE,RIGHT,1 OR 2 VIEWS, TIBIA & FIBULA,RIGHT, 2 VIEWS, ANKLE,RIGHT, 3 VIEWS HISTORY: Right lower leg. Right anterior aspect just proximal of mid-point COMPARISON: Right knee radiograph 06/04/2018 TECHNIQUE: 2 views of the right knee, 4 views of the right tibia/fibula, and 3 views of the right ankle, submitted to the [place] National Teleradiology Program (NTP) for interpretation. FINDINGS: [...] and ankle. READING PHYSICIAN: Rogelio Alford MD -[id number] 01/01/2024 18:34 PDT [facility] National Teleradiology Program [phone] (For Medical Practitioner Use Only) Attention Patients / Veterans: If you have questions or concerns about these test results, please contact your ordering provider or primary care team. Primary Interpreting Staff: RADIOLOGY,OUTSIDE SERVICE, Staff Physician / RADIOLOGY,OUTSIDE SERVICE [facility] Jan 01, 2024 07:18 PM TIBIA & FIBULA,RIGHT, 2 VIEWS: BETTY HAAS [id number] -1970 M Ex Date: JAN 01, 2024@19:18 Req Phys: MONICA JULES Loc: [place]-EMERGENCY SWITCHBOARD MANAGER (Req'g Img Loc: [facility]-MAIN RADIOLOGY SUITE Service: Unknown [facility], [facility] [address] [place] [address] (Case [id number] COMPLETE) TIBIA & FIBULA,RIGHT, 2 VIEWS (RAD Detailed) CPT:15093 Proc Modifiers : RIGHT Reason for Study: Right lower leg Clinical History: Right anterior aspect just proximal of mid-point Report Status: Verified Date Reported: JAN 01, 2024 Date Verified: JAN 01, 2024 Boring Machine Operator Vertical E-Sig: Report: KNEE,RIGHT,1 OR 2 VIEWS, TIBIA & FIBULA,RIGHT, 2 VIEWS, ANKLE,RIGHT, 3 VIEWS HISTORY: Right lower leg. Right anterior aspect just proximal of mid-point COMPARISON: Right knee radiograph 06/04/2018 TECHNIQUE: 2 views of the right knee, 4 views of the right tibia/fibula, and 3 views of the right ankle, submitted to the [place] National Teleradiology Program (NTP) for interpretation. FINDINGS: [...] and ankle. READING PHYSICIAN: Rogelio Alford MD -[id number] 01/01/2024 18:34 PDT [facility] National Teleradiology Program [phone] (For Medical Practitioner Use Only) Attention Patients / Veterans: If you have questions or concerns about these test results, please contact your ordering provider or primary care team. Primary Interpreting Staff: RADIOLOGY,OUTSIDE SERVICE, Staff Physician / RADIOLOGY,OUTSIDE SERVICE [facility] Jan 01, 2024 07:18 PM KNEE,RIGHT,1 OR 2 VIEWS: BETTY HAAS [id number] -1970 M Exm Date: JAN 01, 2024@19:18 Req Phys: MONICA JULES Loc: [place]-EMERGENCY SWITCHBOARD MANAGER (Req'g Img Loc: [facility]-MAIN RADIOLOGY SUITE Service: Unknown [facility], [address] [place] [address] (Case [id number] COMPLETE) KNEE,RIGHT,1 OR 2 VIEWS (RAD Detailed) CPT:51195 Proc Modifiers : RIGHT, LATERAL Reason for Study: right lower leg Clinical History: Right anterior aspect just proximal of mid-point Report Status: Verified Date Reported: JAN 01, 2024 Date Verified: JAN 01, 2024 Boring Machine Operator Vertical E-Sig: Report: KNEE,RIGHT,1 OR 2 VIEWS, TIBIA & FIBULA,RIGHT, 2 VIEWS, ANKLE,RIGHT, 3 VIEWS HISTORY: Right lower leg. Right anterior aspect just proximal of mid-point COMPARISON: Right knee radiograph 06/04/2018 TECHNIQUE: 2 views of the right knee, 4 views of the right tibia/fibula, and 3 views of the right ankle, submitted to the [place] National Teleradiology Program (NTP) for interpretation. FINDINGS: [...] and ankle. READING PHYSICIAN: Rogelio Alford MD -[id number] 01/01/2024 18:34 PDT [facility] National T[facility]adiology Program [phone] (For Medical Practitioner Use Only) Attention Patients / Veterans: If you have questions or concerns about these test results, please contact your ordering provider or primary care team. Primary Interpreting Staff: RADIOLOGY,OUTSIDE SERVICE, Staff Physician / RADIOLOGY,OUTSIDE SERVICE [facility] Encounter Notes: All associated encounter notes This section contains the clinical notes associated to the Encounter. Date/Time Encounter Note(s) Provider Source December 19, 2023 01:26 PM GASTROENTEROLOGY C ONSULT: LOCAL TITLE: GASTROENTEROLOGY OUTPATIENT CONSULT ST STANDARD TITLE: GASTROENTEROLOGY CONSULT DATE OF NOTE: DECEMBER 19, 2023@13:26 ENTRY DATE: DECEMBER 19, 2023@13:26:31 AUTHOR: KOSTA SOTO EXP COSIGNER: MOE JUNE URGENCY: STATUS: COMPLETED GASTROENTEROLOGY OUTPATIENT CONSULT ST Has ADDENDA CC: constipation HPI: Pt. is a 53 y/o WHITE MALE with PMH of DM, HTN, night terrors, HLD, CHASITY, ? QUIJANO who presents for constipation. Patient reports recent admission to [facility] for constiaption and ?bowel obstruction. The thought was it was due to his naltrexone. Currently on docusate and lactulose (for history of elevated ammonia) and is having regular soft bowel movements. He has had a recent colonoscopy which was normal in 2021. He also has a chart history of NAFLD but no recent imaging. Has chronic mildly elevated LFTs but denies history of jaundice, ascites, EV, pruritis. He otherwise denies GI symptoms except for nerve issues from prior sigmoidectomy surgery (done for diverticulitis). ROS: Review of systems is as per HPI and additionally notable for Constitutional: No fever, No weakness/ fatigue Cardiovascular: No chest pain, No palpitations Respiratory: No shortness of breath, No cough Genitourinary: No dysuria, No polyuria Neurology: No headache, No tremors Musculoskeletal: No joint pain, + back pain Skin: No itching Psychiatric: +anxiety, depression, night terrors 10-point ROS is otherwise negative. PMHx: Reviewed. MEDS: Reviewed. 1) Abnormal results of liver function studies 2) Diverticulitis 3) Erectile dysfunction 4) Obesity 5) Chest pain 6) Sensory-neural hearing loss 7) Back pain (SNOMED CT 454531294) 8) Benign hypertension (SNOMED CT 43507617) 9) Convulsion 10) Male hypogonadism 11) Conversion [...] Fibromyalgia 29) Exposure to potentially hazardous substance Active Outpatient Medications (excluding Supplies): Issue Date Status Last Fill Active Outpatient Medications Refills Expiration 1) ACCU-CHEK GUIDE (GLUCOSE) TEST STRIP ACTIVE Issu:04-25-23 Qty: 100 for 50 days Sig: USE 1 STRIP Refills: 5 Last:07-24-23 FOR BLOOD TEST TWICE A DAY ALTERNATING Expr:04-25-24 TIMES EACH DAY *STABLE INSULIN THERAPY* Mar 2) ALBUTEROL 90MCG (CFC-F) 200D ORAL INHL ACTIVE Issu:10-30-23 Qty: 1 for 30 days Sig: INHALE 2 Refills: 6 Last:10-30-23 PUFFS BY ORAL INHALATION FOUR TIMES A Expr:10-30-24 DAY NEEDED FOR BREATHING. SHAKE WELL. RINSE MOUTHPIECE FREQUENTLY TO PREVENT CLOGGING. 3) BETAMETHASONE DIPROPIONATE 0.05% OINT ACTIVE Issu:03-26-23 Qty: 45 for 30 days Sig: APPLY Refills: 0 Last:04-15-23 LIGHTLY TO AFFECTED AREA(S) THREE Expr:03-26-24 TIMES A DAY (EXTERNAL USE ONLY) 4) CHOLECALCIF 50MCG (D3-2,000UNIT) TAB ACTIVE Issu:07-07-23 Qty: 200 for 90 days Sig: TAKE TWO Refills: 1 Last:12-29-23 TABLETS BY MOUTH ONCE A DAY FOR Expr:07-07-24 VITAMIN D DEFICIENCY. 5) CPD-NALTREXONE 3MG (LOW DOSE) CAP Qty: ACTIVE Issu:12-11-23 30 for 30 days Sig: TAKE 1 CAPSULE BY Refills: 11 Last:12-11-23 MOUTH ONCE A DAY Expr:12-11-24 6) CYANOCOBALAMIN 100MCG TAB Qty: 100 for ACTIVE Issu:09-04-23 90 days Sig: TAKE ONE TABLET BY MOUTH Refills: 2 Last:12-17-23 ONCE A DAY FOR B12 SUPPLEMENTATION Expr:09-04-24 7) CYCLOBENZAPRINE HCL 10MG TAB Qty: 90 ACTIVE Issu:08-08-23 for 30 days Sig: TAKE ONE TABLET BY Refills: 1 Last:08-30-23 MOUTH THREE TIMES A DAY NEEDED FOR Expr:08-08-24 MUSCLE SPASM MAY CAUSE DROWSINESS. DO NOT DRINK ALCOHOL WHILE TAKING THIS MEDICATION. 8) DEXTROSE 24GM/31GM SQUEEZE TUBE Qty: 3 ACTIVE Issu:04-30-24 for 30 days Sig: TAKE 1 TUBE BY MOUTH Refills: 1 Last:11-28-23 ONCE A DAY NEEDED REPEAT DOSE IF Expr:11-28-24 HYPOGLYCEMIA CONTINUES 15 MINUTES AFTER THE FIRST DOSE. 9) DICLOFENAC NA 1% TOP GEL Qty: 200 for ACTIVE Issu:10-31-23 30 days Sig: APPLY 4 GM TO AFFECTED Refills: 10 Last:12-15-23 AREA(S) FOUR TIMES A DAY FOR Expr:10-31-24 PAIN/INFLAMMATION; NOT MORE THAN 16 GRAMS DAILY TO ANY LOWER EXTREMITY JOINT. NOT MORE THAN 8 GRAMS DAILY TO ANY UPPER EXTREMITY JOINT. MAX 32GM/DAY OVER ALL JOINTS. (MEASURE DOSE WITH RULER ATTACHED INSIDE BOX) 10) DOCUSATE NA 100MG CAP Qty: 200 for 90 ACTIVE Issu:10-24-23 days Sig: TAKE ONE CAPSULE BY MOUTH Refills: 3 Last:10-24-23 TWICE A DAY FOR SOFTENING STOOL HOLD Expr:10-24-24 FOR LOOSE STOOL/DIARRHEA. 11) EZETIMIBE 10MG TAB Qty: 30 for 30 days ACTIVE Issu:01-23-23 Sig: TAKE ONE TABLET BY MOUTH ONCE A Refills: 3 Last:12-01-23 DAY TO LOWER CHOLESTEROL Expr:01-24-24 12) FISH OIL 1000MG (500MG DHA/EPA) CAP ACTIVE Issu:04-26-23 Qty: 400 for 90 days Sig: TAKE TWO Refills: 1 Last:12-01-23 CAPSULES BY MOUTH TWICE A DAY TO LOWER Expr:04-26-24 TRIGLYCERIDES 13) FLUTICAS 250/SALMETEROL 50 INHL DISK 60 ACTIVE Issu:01-11-23 Qty: 1 for 30 days Sig: INHALE 1 Refills: 2 Last:06-20-23 INHALATION BY ORAL INHALATION TWICE A Expr:01-12-24 DAY FOR ASTHMA (OPEN DISKUS; CLICK ONLY ONCE; MAY INHALE TWICE TO COMPLETE DOSE; CLOSE WHEN FINISHED) RINSE MOUTH AND SPIT AFTER EACH USE. 14) GLIPIZIDE 5MG TAB Qty: 180 for 90 days ACTIVE Issu:12-14-23 Sig: TAKE ONE TABLET BY MOUTH TWO Refills: 1 Last:12-14-23 TIMES A DAY BEFORE MEALS TAKE 30 Expr:12-14-24 MINUTES BEFORE EATING. 15) LIDOCAINE 2.5/PRILOCAINE 2.5% CREAM ACTIVE Issu:04-14-23 Qty: 30 for 14 days Sig: APPLY Refills: 0 Last:08-06-23 LIGHTLY TO AFFECTED AREA(S) TWICE Expr:04-14-24 DAILY NEEDED 16) LIDOCAINE 5% PATCH Qty: 90 for 30 days ACTIVE Issu:07-07-23 Sig: APPLY 1 PATCH TO SKIN SITE Refills: 1 Last:10-31-23 NIGHTLY NEEDED FOR PAIN. MAY USE Expr:07-07-24 1-3 PATCHES. PATCHES MAY BE CUT TO FIT ONTO FEET. APPLY PATCH AND PRESS FIRMLY FOR 10-15 SECONDS. KEEP ON FOR 12 HOURS THEN REMOVE PATCH FOR 12 HOURS. 17) METFORMIN HCL 500MG 24HR SA TAB Qty: ACTIVE Issu:11-28-23 360 for 90 days Sig: TAKE FOUR Refills: 3 Last:11-28-23 TABLETS BY MOUTH ONCE A DAY FOR BLOOD Expr:11-28-24 SUGAR CONTROL. TAKE WITH FOOD. AVOID ALCOHOL. DISCONTINUE BEFORE GETTING XRAY DYE. 18) METHYLPREDNISOLONE 4MG TAB DOSEPAK,21 ACTIVE Issu:12-18-23 Qty: 1 for 6 days Sig: TAKE TABLETS Refills: 0 Last:12-18-23 BY MOUTH DIRECTED RASH TAKE 6 Expr:01-17-24 TABLETS BY MOUTH ON DAY ONE, THEN DECREASE BY ONE TABLET DAILY UNTIL GONE. TAKE WITH FOOD. 19) NYSTATIN 014273 UNT/GM CREAM Qty: 60 ACTIVE Issu:04-14-23 for 30 days Sig: APPLY LIBERALLY TO Refills: 0 Last:08-06-23 AFFECTED AREA(S) THREE TIMES A DAY FOR Expr:04-14-24 FUNGAL SKIN INFECTION - TOPICAL USE ONLY. 20) POLYETHYLENE GLYCOL 3350 ORAL PWDR Qty: ACTIVE Issu:10-24-23 510 for 30 days Sig: MIX AND DRINK 1 Refills: 1 Last:10-24-23 CAPFUL BY MOUTH ONCE A DAY NEEDED Expr:10-24-24 FOR CONSTIPATION (MEASURE WITH CAP AND MIX IN 8 OZ OF WATER) 21) PRAZOSIN HCL 2MG CAP Qty: 90 for 30 ACTIVE Issu:10-18-23 days Sig: TAKE THREE CAPSULES BY Refills: 1 Last:12-07-23 MOUTH AT BEDTIME FOR NIGHTMARES MAY Expr:10-18-24 CAUSE DIZZINESS OR DROWSINESS. 22) PREGABALIN 100MG ORAL CAP Qty: 150 for ACTIVE Issu:10-31-23 30 days Sig: TAKE TWO CAPSULES BY Refills: 1 Last:12-11-23 MOUTH EVERY MORNING AND TAKE THREE Expr:05-02-24 CAPSULES EVERY EVENING FOR FIBROMYALGIA *MAY CAUSE DROWSINESS* 23) SEMAGLUTIDE 2MG/0.75ML INJ PEN 3ML Qty: ACTIVE Issu:08-30-23 1 for 28 days Sig: INJECT 2MG UNDER Refills: 9 Last:11-01-23 THE SKIN EVERY WEEK FOR DIABETES Expr:08-30-24 24) SODIUM CHLORIDE 0.65% SOLN NASAL SPRAY ACTIVE Issu:08-30-23 Qty: 45 for 30 days Sig: USE 1 SPRAY Refills: 10 Last:09-21-23 INTO NOSTRIL(S) EVERY 4 HOURS Expr:08-30-24 NEEDED FOR NASAL CONGESTION 25) TRAZODONE HCL 100MG TAB Qty: 180 for 90 ACTIVE Issu:10-18-23 days Sig: TAKE TWO TABLETS BY MOUTH Refills: 3 Last:12-30-23 AT BEDTIME FOR DEPRESSION Expr:10-18-24 26) TRIAMCINOLONE ACETONIDE 0.1% CREAM Qty: ACTIVE Issu:12-18-23 80 for 14 days Sig: APPLY SPARINGLY Refills: 0 Last:12-18-23 TO AFFECTED AREA(S) TWICE A DAY FOR Expr:01-17-24 CONTACT DERMATITIS (EXTERNAL USE ONLY) Start Date Active Non-VA Medications Refills Expiration 1) Non-VA TRIAMCINOLONE ACETONIDE 0.025% ACTIVE CREAM Sig: SPARINGLY TO AFFECTED AREA(S) TWICE A DAY 27 Total Medications FHx: No colon CA or polyps. No IBD. No liver, stomach or pancreatic disease. SHx: Smoking- yes EtOH- heavy EtOH 20 years ago, now social Drugs- no history of IV drugs Occupation- Lives with- Branch of [employer]- Vitals-97.7 F [36.5 C] (12/19/2023 13:08)74 (12/19/2023 13:08)132/79 (12/19/2023 13:08)16 (12/19/2023 13:08) Measurement DT POx (L/MIN)(%) 12/19/2023 13:08 94 12/14/2023 11:01 94 11/14/2023 12:55 95 10/24/2023 11:45 96 General- NAD, well-nourished HEENT-mmm, no lesion or exudate Neck-no thyromegaly, no JVD CV-rrr no m/r/g/t Lung-cta jeremiah, symmetric movement Abd-nabs, s/nd, Lower abdominal TTP, no masses, no HSM Ext-no c/c/e Lymph-no edema, cervical or supraclavicular LAD Skin-no rashes, nodules, or jaundice Psych-A&O x 3, normal mood Hemoccult:No FOBT EO data found LABS: Hgb HGB 16.2 g/dL 12/14/2023 11:58 Hct 47.3 % (12/14/23 11:58) MCV 91.3 fL (12/14/23 11:58) Plt PLT 158 10*3/uL 12/14/2023 11:58 Iron, TIBC IRON 98 ug/dL 04/01/2022 12:43 TIBC 323 ug/dL 04/01/2022 12:43 Jermaine FERRITIN 133.60 ng/mL 04/01/2022 12:43 BUN 12.9 mg/dL (12/14/23 11:58) Cr CREATININE 0.90 mg/dL 12/14/2023 11:58 Alb ALBUMIN 4.2 g/dL 12/14/2023 11:58 ALBUMIN (PB-sendout) 4.4 g/dL 04/07/2022 09:20 Ca 9.3 mg/dL (12/14/23 11:58) TSH TSH 1.176 uIU/mL 05/15/2023 15:37 Vit D VITAMIN D, 25-HYDROXY 44.3 ng/mL 12/14/2023 11:57 ALT 44 U/L H (12/14/23 11:58) AST 32 U/L (12/14/23 11:58) TB TOTAL BILIRUBIN 0.5 mg/dL 12/14/2023 11:58 AP ALKALINE PHOSPHATASE 130 U/L 12/14/2023 11:58 INR No INR EO data found IMAGING: Impression for CT ABDOMEN AND PELVIS WITH AND WITHOUT CONTRAST, 07/02/21, case [id number] 1. No genitourinary lesions are identified to explain the reported clinical findings. Report drafted by Quique Desai M.D. (resident). I, Isaias Alcala, have reviewed the images and report and concur with these findings. No Impressions found No Impressions found IMP: Pt. is a 53 y/o WHITE MALE with PMH of DM, HTN, night terrors, HLD, CHASITY, ? QUIJANO who presents for constipation for which he was recently admitted. He also has a chart history of NAFLD but no imaging in our system Constipation is currently resolved with lactulose and docusate. Recommend continuing these agents. Had recent colonoscopy withotu any polyps. Recommend 10 year follow up. Elevated LFTs and ?hyperammoniemia. - he has no stigmata of liver disease or other evidence of elevated portal hypertension but will get a RUQ to further evaluate - complete chronic liver disease workup - refer to Dr. Solomon in Hepatology Benefits, risks, and alternative tests described to patient and he/she agrees to proceed. The patient was instructed to call the GI lab on the 6th floor of [facility] at [phone] or [phone] if questions or concerns arise. 12/19/2023 15:00 [facility] PCT HASSAN PSO 12/21/2023 16:00 [facility] MHC IND TOCHTROP 1 01/11/2024 10:15 [facility]PHONE PHARM PAIN 02/26/2024 15:00 [facility]PULMONARY DEMIDENKO 04/03/2024 11:00 [facility]-ENDOCRINOLOGY MANAGER BUSINESS MANAGEMENT 4 04/15/2024 13:00 [facility]-PACT E MANAGER BUSINESS MANAGEMENT RESIDENT 1 Medication list was reviewed with the patient or care-principal technical architect, any discrepancies were resolved and the patient was given an updated list. The patient was provided written information with my name, contact phone number, fax, GI lab number and email address. Patient was instructed to contact me with issues/questions/concerns. Written instructions with plans for meds/lab/imaging/procedures was provided to ensure compliance with the above stated plan. /los/ KOSTA SOTO Gastroenterology Fellow Signed: 12/19/2023 13:45 /los/ Moe June MD, PhD. Staff Physician, Chief, Gastroenterology Service Cosigned: 12/20/2023 14:37 12/20/2023 ADDENDUM STATUS: COMPLETED I have seen and discussed this patient's case with the GI fellow including review of pertinent history, medications, labs and XRs. I agree with the assessment and plan for management. Plan liver workup and outpt hepatology referral. ?prior history of HE-lactulose /los/ Moe June MD, PhD. Staff Physician, Chief, Gastroenterology Service Signed: 12/20/2023 14:38 KOSTA SOTO [facility]
--- OUTSIDE RECORDS SUMMARY | 2024-11-30 15:26 | XMS_ITS | Encounter Summary ---
Author Name [facility] [place] [facility] [facility] [place] Address [address] [place] [address] Care Team Providers Care Manager Of Engineering Name Role Phone YONATHAN CORONEL Primary Care Provider OMEGA Bethea Unavailable Unavailable Selected Encounter This section includes the information on record at [place] for the Encounter. Date/Time Encounter Type Encounter Description Reason Provider Source Apr 19, 2024 04:20 PM Outpatient Encounter ADMIN PAT ACTIVTIES (MASNONCT) RAQUEL DOYLE Encounter Template Text not used by [place] [...] 03:00 PM AMBULATORY - MEDICINE [facility] Apr 29, 2024 01:00 PM AMBULATORY - NONE [facility] Apr 30, 2024 03:00 PM AMBULATORY - PSYCHIATRY [facility] May 03, 2024 10:30 AM AMBULATORY - SURGERY [facility] May 21, 2024 01:00 PM AMBULATORY - PSYCHIATRY [facility] May 31, 2024 10:30 AM AMBULATORY - SURGERY . [facility] Jun 05, 2024 09:30 AM AMBULATORY - NONE [facility] Jun 14, 2024 11:00 AM AMBULATORY - SURGERY [facility] Jun 17, 2024 03:00 PM AMBULATORY - MEDICINE [facility] Jun 25, 2024 03:00 PM AMBULATORY - PSYCHIATRY [facility] Jul 01, 2024 10:30 AM AMBULATORY - NONE [facility] Jul 08, 2024 10:30 AM AMBULATORY - REHAB MEDICIN E [facility] Jul 18, 2024 02:00 PM AMBULATORY - MEDICINE [facility] Jul 22, 2024 03:00 PM AMBULATORY - NONE [facility] Aug 02, 2024 01:30 PM AMBULATORY - SURGERY [facility] Aug 08, 2024 02:00 PM AMBULATORY - PSYCHIATRY [facility] Aug 09, 2024 02:00 PM AMBULATORY - SURGERY [facility] Aug 13, 2024 03:00 PM AMBULATORY - PSYCHIATRY [facility] Aug 27, 2024 09:30 AM AMBULATORY - REHAB MEDICIN E [facility] Sep 03, 2024 10:30 AM AMBULATORY - NONE [facility] Lab Results: +/- 30 days of [...] Type Comment Apr 20, 2024 11:39 AM [facility] GLUCOSE,BLOOD-poct (STL) BLOOD Specimen Type: BLOOD Comment: Test Performed by: [id number] Meter #: [id number] Ordering Provider: KIKI PINA Report Released Date/Time: Apr 20, 2024 12:07 PM Reporting Lab: [place] [address] [facility] [address] Performing Lab: [address] [address] GLUCOSE,BLOOD-poct (STL) 266 mg/dL H 72-Apr 20, 2024 05:26 AM [facility] GLUCOSE,BLOOD-poct (STL) BLOOD Specimen Type: BLOOD Comment: Test Performed by: [id number] Meter #: [id number] Ordering Provider: KIKI PINA Report Released Date/Time: Apr 20, 2024 05:38 AM Reporting Lab: [address] [address] Performing Lab: [address] [address] GLUCOSE,BLOOD-poct (STL) 157 mg/dL H -Apr 19, 2024 08:45 PM [facility] GLUCOSE,BLOOD-poct (STL) BLOOD Specimen Type: BLOOD Comment: Test Performed by: [id number] Meter #: [id number] Ordering Provider: KIKI PINA Report Released Date/Time: Apr 19, 2024 10:10 PM Reporting Lab: [place] [address] [facility] [address] Performing Lab: [address] [address] GLUCOSE,BLOOD-poct (STL) 232 mg/dL H -Apr 19, 2024 05:13 PM [facility] GLUCOSE,BLOOD-poct (STL) BLOOD Specimen Type: BLOOD Comment: Test Performed by: [id number] Meter #: [id number] Ordering Provider: KIKI PINA Report Released Date/Time: Apr 19, 2024 05:24 PM Reporting Lab: [address] [address] Performing Lab: [address] [address] GLUCOSE,BLOOD-poct (STL) 176 mg/dL H 72-99 Apr 19, 2024 03:32 PM [facility] GLUCOSE,BLOOD-poct (STL) BLOOD Specimen Type: BLOOD Comment: Test Performed by: [id number] Meter #: [id number] Ordering Provider: LAUREN MOREL Report Released Date/Time: Apr 19, 2024 03:43 PM Reporting Lab: [facility] [address] [place] [address] Performing Lab: [facility] [address] [place] [address] GLUCOSE,BLOOD-poct (STL) 155 mg/dL H 72-99 Apr 19, 2024 02:56 PM [facility] MRSA SURVL NARES DNA [...] Apr 19, 2024 04:55 PM Reporting Lab: [address] [address] Performing Lab: [address] [address] MRSA SURVL NARES DNA Negative Negative Apr 19, 2024 10:33 AM [facility] GLUCOSE,BLOOD-poct (L) BLOOD Specimen Type: BLOOD Comment: Test Performed by: [id number] Meter #: [id number] Ordering Provider: YONATHAN CORONEL Report Released Date/Time: Apr 19, 2024 10:50 AM Reporting Lab: [address] [address] Performing Lab: [address] [address] GLUCOSE,BLOOD-poct (STL) 226 mg/dL H 72-99 Apr 08, 2024 03:28 PM [facility] PT/INR NEW (STL-MA) PLASMA Specimen Type: PLAS MA Comment: ~For Test: BASIC METABOLIC PANEL ~pre-op Ordering Provider: NOAH SANCHEZ Report Released Date/Time: Apr 02, 2024 12:39 PM Reporting Lab: [address] [address] Performing Lab: [address] [address] PROTIME 12.5 s 9.4-12.5 INR VALUE 1.1 {INR} Apr 08, 2024 03:28 PM [facility] BASIC METABOLIC PANEL PLASMA Specimen Type: PL ASMA Comment: ~For Test: BASIC METABOLIC PANEL ~pre-op Ordering Provider: NOAH SANCHEZ Report Released Date/Time: Apr 02, 2024 12:39 PM Reporting Lab: [address] [address] Performing Lab: [address] [address] CREATININE 1.59 mg/dL H 0.7-1.3 UREA NITROGEN 13.7 mg/dL 9.0-25.0 GLUCOSE 234 mg/dL H 72-99 SODIUM 139 meq/L 136-145 POTASSIUM 4.3 meq/L 3.5-5 CHLORIDE 104 meq/L 98-107 CARBON DIOXIDE 22 meq/L 22-31 CALCIUM 9.6 mg/dL 8.4-10.4 EGFR (CKD-EPI 2020) 50.6 >60 Apr 08, 2024 03:28 PM [facility] CBC BLOOD Specimen Type: BLOOD Comment: ~For Test: BASIC METABOLIC PANEL ~pre-op Ordering Provider: NOAH SANCHEZ Report Released Date/Time: Apr 02, 2024 12:39 PM Reporting Lab: [address] [address] Performing Lab: [address] [address] WBC 7.3 10*3/uL 3.6-11.2 RBC 5.23 10*6/uL [...] Source Apr 19, 2024 11:47 PM 9 [facility] Apr 19, 2024 08:37 PM 97.7 74 162/99 20 96 9 [facility] Apr 19, 2024 07:57 PM 4 [facility] Apr 19, 2024 06:32 PM 97.3 71 172/83 18 94 7 282.4 38 [facility] Apr 19, 2024 06:18 PM 6 [facility] Social History: Smoking Status [...] ago,started smoking at 14yrs,smoked 2packs a day [facility] Tobacco Use History This section includes a history of the smoking, or tobacco-related health factors, that were collected on or before the date of the Encounter. The data comes from the [place] facility where the Encounter took place. Date/Time Smoking Status/Tobacco Use Comment F acility Mar 07, 2000 12:35 PM CURRENT NON-TOBACC O USER-HX OF USE [facility] Advance Directives: All historical and current Section Date Range: From patient's date of to the date document was created. This section includes ALL of a patient's completed or amended [place] Advance and Rescinded Directives. The entries below indicate that a directive exists for the patient, but an actual copy is not included with this document. The data comes from all [facility]. Date Advance Directives Provider Source Oct 21, 2022 FRANKLIN KO [facility] Sep 23, 2004 ADVANCE DIRECTIVE CJ RUDOLPH [facility] May 24, 2004 ADVANCE DIRECTIVE MITCH ZEE Kena [facility] May 24, 2000 ADVANCE DIRECTIVE MICHELE CENTENO Kena [facility] Nov 11, 1996 ADVANCE DIRECTIVE MAGGIE DRAKE [facility] December 08, 1995 ADVANCE DIRECTIVE KI SANTOYO [facility] Radiology Reports: +/- 30 [...] data comes from all [place] treatment facilities. Date/Time Radiology Report Provider Source Apr 08, 2024 03:15 PM CHEST X-RAY, 2 VIE WS: BETTY HAAS [id number] -1970 M Exm Date: APR 08, 2024@15:15 Req Phys: NOAH SANCHEZ Becca Loc: [facility]-PRE-OP EVAL NURSING AM (Req Img Loc: [place]-MAIN RADIOLOGY SUITE Service: Unknown [facility], [address] [place] [address] (Case [id number] COMPLETE) CHEST X-RAY, 2 VIEWS (RAD Detailed) CPT:02471 Reason for Study: pre-op Clinical History: Report Status: Verified Date Reported: APR 08, 2024 Date Verified: APR 08, 2024 [facility] E-Sig:/ES/Franklin Hartley MD. FACR. Report: History: pre-op. Comparison: Prior chest examination-03/24/2023. Technique: PA and lateral views. Findings: No pulmonary consolidation, pleural effusion, pneumothorax, cardiomegaly or pulmonary edema is seen. Impression: No acute cardiopulmonary disease is seen. Primary Interpreting Staff: Franklin Hartley MD. FACR, Neuroradiologist ([facility]) /FRANKLIN KENDALL [facility] Pathology Reports: +/- 30 days [...] data comes from all [place] treatment facilities. Date/Time Pathology Report Provider Source [...] submitted entirely in cassette A1. MICROSCOPIC EXAM: (Parmjitannettenabilamarkos) Microscopic examination of the sections submitted from [...] Performing Laboratory: Surgical Pathology Report Performed By: [facility] [address] [place] [address] CLIA# [id number] [address] [address] $FTR - - - - - - [...] - - BETTY HAAS STANDARD FORM 515 ID:[id number] SEX:M :1970 AGE: 54 LOC:APFEE PCP: Yonathan Coronel NP /pamela MALCOLM Pathologist Signed: 04/23/2024 14:03 CHRISTY MALCOLM [facility] Apr 08, 2024 03:00 PM LR MICROBIOLOGY RE PORT: Accession [UID]: [id number] [[id number]] Received: Apr 08, 2024@15:27 Collection sample: URINE,CLEAN CATCH Collection date: Apr 08, 2024 15:00 Site/Specimen: URINE Provider: NOAH SANCHEZ Test(s) ordered: C&S URINE.................... . completed: Apr 09, 2024 22:40 * BACTERIOLOGY FINAL REPORT => Apr 09, 2024 22:47 TECH CODE: [id number] CULTURE RESULTS: STREP. AGALACTIAE, GRP. B - Quantity: >25,000 - <50,000 CFU/ML Comment: There will be no work up. Bacteriology Remark(s): -- RYAN 04/09/24 -- >25,000 - <50,000 CFU/ML S. AGAL - There will be no work up. <10,000 CFU/ML MIXED GRAM POSITIVE ORGANISM There will be no work up. =--=--=--=--=--=--=--=--= --=--=--=--=--=--=--=--=- -=--=--=--=--=--=--=--=-- =-- Performing Laboratory: Bacteriology Report Performed By: [facility] [address] [place] [address]# [id number] 5 [facility] [address] [place] [address] LUANA CINTRON [facility] Encounter Notes: All associated encounter notes This section contains the clinical notes associated to the Encounter. Date/Time Encounter Note(s) Provider Source Apr 19, 2024 04:20 PM ANESTHESIOLOGY TONEY WSHEET: LOCAL TITLE: PACU POST-OP FLOWSHEET ST STANDARD TITLE: ANESTHESIOLOGY FLOWSHEET DATE OF NOTE: APR 19, 2024@16:20 ENTRY DATE: APR 19, 2024@16:20:55 AUTHOR: RAUQEL DOYLE EXP COSIGNER: URGENCY: STATUS: COMPLETED Patient: BETTY HAAS SSN: [id number] Anesthesia Method: General 04/19/2024 13:32 (Primary), Airway: Endotracheal Intubation, Technique: Indirect Laryngoscopy, Level Of Consciousness: Sedated, Patient Position: Ramped, Preoxygenated, Induction Type: Intravenous, Breathing Circuit: [place] Adult, Ventilation by Mask: Easy to Ventilate without Aid/Adjunct, Intubating Device: Glidescope, Ease: Easy, 1 Number Of Attempts, Intubation View: Grade 1, Blade Size: 4, Size: 8 mm, Depth (cm): 23, Tube: Cuffed, Depth Measurement Location: Lips, Tracheal Cuff Volume (cc): 10, Tracheal Cuff Inflated With: Air, EtCO2 Verified: Waveform, Breath Sounds: Equal And Bilateral, Epigastric Sounds Negative, Performed By: PRIN. ECKERT, Result: Successful Rationale For Selected Technique: Expected Difficult Route: Oral Tube Checklist: Balloons Checked, Attachments Available Airway Tube: Standard Adjunct Devices: Stylet Verification Of Tube Placement: Bilateral Chest Movement Securement: Taped Eye Protection: Both Eyes, Tape Insertion Complication: No Complications Noted Positioning: Head Neutral, Head And Neck In Alignment With Spine, Pressure Points Padded & Checked, Eyes, Ears And Nose Free Of Pressure ASA Number: 3 Procedure: Implanted Penile prosthesis placement Diagnosis: erectile dysfunction PACU Drugs: HYDROmorphone: 0.4 mg PACU Fluids: Ringers Lactated Solution: 300 ml Date of Operation: 04/19/2024 Anesthesia Care End: 04/19/2024 15:33 Resources: Aquacel foam placed on angelic prominence to protect skin during surgery Safety Belt Staff: --------- GARRY RINCON, SURGEON CHARLOTTE GENAO, ATT. SURGEON LAUREN MOREL, Holding Nurse ANJALI CANDELARIA ANES. SUPER. FELDMANN, REBECCA, PRIN. ANES. BARNI, ANITA K, LADARIUS CAMPAIGN ADVISOR VANNESSA CURRIE, Anesthesiologist RAQUEL DOYLE, Post-Op Nurse Surgery Start Time: 04/19/2024 13:25 Procedure End Time: Moderate Sedation Care End: /los/ RAQUEL DOYLE BSN RN REGISTERED NURSE Signed: 04/19/2024 16:20 RAQUEL DOYLE [facility]
--- OUTSIDE RECORDS SUMMARY | 2024-11-30 15:26 | XMS_ITS | Continuity of Care Document ---
Author Name [facility] Organization [facility] Care Team Providers Care Advice Line Rn Name Role Phone [facility] Unavailable Unavailable Problems Combined list of problems from Department of Defense and Veterans Affairs facilities. It does not include entries that were removed or entered in error. Problem Status Onset Date Problem Type Date of Resolution Comments Source Abnormal results of liver function studies Active Condition [facility] Adjustment disorder with mixed disturbance of emotions AND conduct Active Condition [facility] At risk for falls Active Condition [facility] Back pain (SNOMED CT [id number]) Active Condition [facility] Turk's esophagus Active Condition Apr 09, 2021 Entered By: ÁLVARO SCHNEIDER Comment: seen in 2002 EGDDec 2021 Entered By: AMBER NAVARRO Comment: EGD 05/2022 negative for Turk's Esophagus [facility] Benign hypertension (SNOMED CT 42148248) Active Condition [facility] Cannabis misuse Active Condition [facility] Chest pain Active Condition [facility] Chronic fatigue syndrome Active Condition May 26, 2022 Entered By: AMBER NAVARRO Comment: per recent [facility] evalation in 03/2022. 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) Active Condition [facility] Convulsion Active Condition Sep 07 012 Entered By: AUNG PRIETO Comment: nonepilepstic psychogenic [facility] Debility Active Condition [facility] Diabetes mellitus Active Condition [facility] Diverticulitis Active Condition November 292007 Entered By: SHAY SUTTON Comment: S/P PARTIAL COLECTOMY 11/03 [facility] Erectile dysfunction Active Condition [facility] Exposure to potentially hazardous substance Active Condition [facility] Fibromyalgia Active Condition [facility] Hematuria Active Condition [facility] Hyperlipidemia Active Condition [facility] Major depressive disorder Active Condition [facility] Male hypogonadism Active Condition [facility] QUIJANO - Nonalcoholic steatohepatitis Active Condition [facility] Obesity Active Condition [facility] Obstructive sleep apnea Active Condition [facility] Osteoarthritis of right knee joint Active Condition [facility] Restrictive lung disease Active Condition Sep 02, 2021 Entered By: MIGUEL BRYANT Comment: PFT 09/01/21 [facility] Sensory-neural hearing loss Active Condition [facility] Syncope Active Condition [facility] Testicular hypofunction Active Condition [facility] Vitamin D deficiency Active Condition [facility] DIZZINESS AND GIDDINESS Inactive Condition 05/09/2006 [facility] History of post-traumatic stress disorder (SNOMED CT [id number]) Inactive Condition 07/29/2021 [facility] Knee Pain Inactive Condition 05/09/2006 [facility] 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) Inactive Condition 07/29/2021 [facility] Diagnosis: ICD-10-CM 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 [facility] Diagnosis: ICD-10-CM E11.8 Type 2 diabetes mellitus with unspecified complications Active Diagnosis [facility] Diagnosis: ICD-10-CM N52.9 Male erectile dysfunction, unspecified Active Diagnosis [facility] Diagnosis: ICD-10-CM F10.188 Alcohol abuse with other alcohol-induced disorder Active Diagnosis [facility] Diagnosis: ICD-10-CM F43.12 Post-traumatic stress disorder, chronic Active Diagnosis [facility] Diagnosis: ICD-10-CM R06.02 Shortness of breath Active Diagnosis [facility] Diagnosis: ICD-10-CM M54.59 Other low back pain Active Diagnosis [facility] Diagnosis: ICD-10-CM R55 Syncope and collapse Active Diagnosis [facility] Diagnosis: ICD-10-CM E11.9 Type 2 diabetes mellitus without complications Active Diagnosis [facility] Diagnosis: ICD-10-CM N48.1 Balanitis Active Diagnosis [facility] Diagnosis: ICD-10-CM E66.9 Obesity, unspecified Active Diagnosis [facility] Diagnosis: ICD-10-CM F52.21 Male erectile disorder Active Diagnosis [facility] Diagnosis: ICD-10-CM F44.5 Conversion disorder with seizures or convulsions Active Diagnosis [facility] Diagnosis: ICD-10-CM E29.1 Testicular hypofunction Active Diagnosis [facility] Diagnosis: ICD-10-CM Z71.81 Spiritual or advent counseling Active Diagnosis [facility] Admit Reason: ED S/P IPP Active Diagnosis [facility] Diagnosis: ICD-10-CM Z01.818 Encounter for other preprocedural examination Active Diagnosis [facility] Diagnosis: ICD-10-CM Z79.891 senior living (current) use of opiate analgesic Active Diagnosis [facility] Diagnosis: ICD-10-CM R06.00 Dyspnea, unspecified Active Diagnosis [facility] Diagnosis: ICD-10-CM K75.81 Nonalcoholic steatohepatitis (QUIJANO) Active Diagnosis [facility] Diagnosis: ICD-10-CM S80.11XA Contusion of right lower leg, initial encounter Active Diagnosis [facility] Diagnosis: ICD-10-CM 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 Diagnosis [facility] Diagnosis: ICD-10-CM R21 Rash and other nonspecific skin eruption Active Diagnosis [facility] Diagnosis: ICD-10-CM R26.0 Ataxic gait Active Diagnosis [facility] Diagnosis: ICD-10-CM R44.3 Hallucinations, unspecified Active Diagnosis [facility] Diagnosis: ICD-10-CM M54.50 Low back pain, unspecified Active Diagnosis [facility] Diagnosis: ICD-10-CM Z71.9 Counseling, unspecified Active Diagnosis [facility] Diagnosis: ICD-10-CM M79.7 Fibromyalgia Active Diagnosis [facility] Diagnosis: ICD-10-CM R41.89 Oth symptoms and signs w cognitive functions and awareness Active Diagnosis [facility] Diagnosis: ICD-10-CM K56.600 Partial intestinal obstruction, unspecified as to cause Active Diagnosis [facility] Diagnosis: ICD-10-CM G89.4 Chronic pain syndrome Active Diagnosis [facility] Diagnosis: ICD-10-CM Z03.89 Encntr for obs for oth suspected diseases and cond ruled out Active Diagnosis [facility] Diagnosis: ICD-10-CM F43.25 Adjustment disorder w mixed disturb of emotions and conduct Active Diagnosis [facility] Diagnosis: ICD-10-CM F43.21 Adjustment disorder with depressed mood Active Diagnosis [facility] Diagnosis: ICD-10-CM F43.10 Post-traumatic stress disorder, unspecified Active Diagnosis [facility] Admit Reason: SUICIDAL IDEATION Active Diagnosis [facility] Diagnosis: ICD-10-CM R45.851 Suicidal ideations Active Diagnosis [facility] Medications Combined list of outpatient medications from Department of Defense and Veterans Affairs facilities.Medications provided include 1) outpatient medications from the last 15 months, and 2) patient-reported medications. Medication Details Route Status Patient Instructions Prescription Expires Prescription Number Last Dispense Date Ordering Provider Order Date Order Qty Source ACETAMINOPH EN 325MG TAB TAKE TWO TABLETS BY MOUTH FOUR TIMES A DAY CAUTION: DO NOT EXCEED 4000MG PER DAY ACETAMIN OPHEN (APAP) FROM ALL MEDS. ORAL ACTIVE 07/19/2025 [id number] OMEGA ELI 2023 700 [facility] N ACETAMINOPH EN 500MG TAB TAKE TWO TABLETS BY MOUTH EVERY 6 HOURS NEEDED FOR PAIN CAUTION: DO NOT EXCEED 4000MG PER DAY ACETAMIN OPHEN (APAP) FROM ALL MEDS. ORAL 05/20/2024 [id number] 4 NIURKA PINA 2023 45 [facility] DIVISIO N ALBUTEROL SO4 90MCG/ACTUA T (CFC-F) INHL,ORAL,8 .5GM INHALE 2 PUFFS BY ORAL INHALATI ON FOUR TIMES A DAY NEEDED FOR BREATHIN G. SHAKE WELL. RINSE MOUTHPIE CE FREQUENT LY TO PREVENT CLOGGING . RESPIR ATORY (INHAL ATION) 10/30/2024 [id number] 5 PROYon CHAVARRIA CHASITY M 2023 1 [facility]IO N BETAMETHASO NE DIPROPIONAT E 0.05% OINT,TOP APPLY LIGHTLY TO AFFECTED AREA(S) THREE TIMES A DAY (EXTERNA L USE ONLY) TOPICA L ACTIVE 07/19/2025 [id number] 5 OMEGA ELI 2023 45 [facility] DIVISIO N BETAMETHASO NE DIPROPIONAT E 0.05% OINT,TOP APPLY LIGHTLY TO AFFECTED AREA(S) THREE TIMES A DAY (EXTERNA L USE ONLY) TOPICA L DISCONT INUED 01/15/2025 [id number] 4 MICK LINDSAY 2023 45 [facility] DIVISIO N CAMPHOR/MEN THOL/METHYL SALICYLATE PATCH APPLY 1 PATCH TO SKIN SITE EVERY EIGHT(8) HOURS NEEDED FOR PAIN (EXTERNA L USE ONLY) TRANSD ERMAL ACTIVE 09/28/2025 [id number] 5 PATRICIO KO 2024 120 [facility] DIVISIO N CETIRIZINE HCL 10MG TAB TAKE ONE TABLET BY MOUTH ONCE A DAY FOR ALLERGY SYMPTOMS ORAL ACTIVE 03/05/2025 [id number] 5 MICK LINDSAY T 2023 90 [facility] DIVISIO N CETIRIZINE HCL 10MG TAB TAKE ONE TABLET BY MOUTH ONCE A DAY NEEDED MAY TAKE UP TO TWO TABLETS A DAY FOR ITCH ORAL 11/08/2023 [id number] 4 Yon NAVARRO 2022 90 [facility] DIVISIO N CHOLECALCIF TRINIDAD 50MCG (2,000UNIT) TAB TAKE TWO TABLETS BY MOUTH ONCE A DAY FOR VITAMIN D DEFICIEN CY. ORAL ACTIVE 07/06/2025 [id number] 5 MICK LINDSAY T 2023 200 [facility] DIVISIO N CHOLECALCIF TRINIDAD 50MCG (2,000UNIT) TAB TAKE TWO TABLETS BY MOUTH ONCE A DAY FOR VITAMIN D DEFICIEN CY. ORAL DISCONT INUED 07/07/2024 [id number] 4 MICK LINDSAY 2022 200 [facility] EUNICEIO N CLONAZEPAM 0.5MG TAB TAKE ONE TABLET BY MOUTH ONCE A DAY NEEDED FOR ANXIETY DO NOT TAKE THIS MEDICATI ON IN CONJUNCT ION WITH ALCOHOL OR OPIATES. AFTER CONSUMIN G, DO NOT PERFORM TASKS THAT COULD BE CONSIDER ED DANGEROU S UNDER ANY LEVEL OF SEDATION OR IMPAIRED COORDINA TION. USE SPARINGL Y. DO NOT TAKE THIS MEDICATI ON IN CONJUNCT ION WITH ALCOHOL OR OPIATES. AFTER CONSUMIN G, DO NOT PERFORM TASKS THAT COULD BE CONSIDER ED DANGEROU S UNDER ANY LEVEL OF SEDATION OR IMPAIRED COORDINA TION. USE SPARINGL Y. ORAL 03/03/2024 [id number] 4 KENYA MEDLEY 2023 10 [facility] DIVISIO N CPD-NALTREX ONE 1.5MG (LOW DOSE) CAP TAKE 1 CAPSULE BY MOUTH ONCE A DAY FOR FIBROMYA LGIA ORAL DISCONT INUED (EDIT) 11/06/2024 [id number] 4 PATRICIO KO 2023 30 [facility] DIV[facility]IO N CPD-NALTREX ONE 3MG (LOW DOSE) CAP TAKE 1 CAPSULE BY MOUTH ONCE A DAY ORAL SUSPEND ED 10/25/2025 [id number] 5 PATRICIO KO 2024 90 [facility] DIVISIO N CPD-NALTREX ONE 3MG (LOW DOSE) CAP TAKE 1 CAPSULE BY MOUTH ONCE A DAY ORAL DISCONT INUED 12/11/2024 [id number] 5 SURI GAMBLE 2023 30 [facility] DIVISIO N CPD-NALTREX ONE 4.5MG (LOW DOSE) CAP TAKE 1 CAPSULE BY MOUTH ONCE A DAY FOR FIBROMYA LGIA ORAL DISCONT INUED (EDIT) 10/03/2024 [id number] 4 PATRICIO KO 2023 30 [facility] DIVISIO N CYANOCOBALA MIN 100MCG TAB TAKE ONE TABLET BY MOUTH ONCE A DAY FOR B12 SUPPLEME NTATION ORAL ACTIVE 07/19/2025 [id number] 5 OMEGA ELI 2024 100 [facility] DIVISIO N CYANOCOBALA MIN 100MCG TAB TAKE ONE TABLET BY MOUTH ONCE A DAY FOR B12 SUPPLEME NTATION ORAL DISCONT INUED 09/04/2024 [id number] 4 PATRICIO KO 2023 100 [facility] DIVISIO N CYCLOBENZAP RINE HCL 10MG TAB TAKE ONE TABLET BY MOUTH THREE TIMES A DAY NEEDED FOR MUSCLE SPASM MAY CAUSE DROWSINE SS. DO NOT DRINK ALCOHOL WHILE TAKING THIS MEDICATI ON. ORAL ACTIVE 11/30/2025 [id number] 5 PATRICIO KO 2024 90 [facility] DIVISIO N CYCLOBENZAP RINE HCL 10MG TAB TAKE ONE TABLET BY MOUTH THREE TIMES A DAY NEEDED FOR MUSCLE SPASM MAY CAUSE DROWSINE SS. DO NOT DRINK ALCOHOL WHILE TAKING THIS MEDICATI ON. ORAL DISCONT INUED 07/09/2025 [id number] 5 PATRICIO KO 2023 90 [facility] DIVISIO N CYCLOBENZAP RINE HCL 10MG TAB TAKE ONE TABLET BY MOUTH THREE TIMES A DAY NEEDED FOR MUSCLE SPASM MAY CAUSE DROWSINE SS. DO NOT DRINK ALCOHOL WHILE TAKING THIS MEDICATI ON. ORAL DISCONT INUED 08/08/2024 [id number] 4 PATRICIO KONay Salas 2023 90 [facility] DIVISIO N DEXTROSE 24GM/31GM SQUEEZE TUBE TAKE 1 TUBE BY MOUTH ONCE A DAY NEEDED REPEAT DOSE IF HYPOGLYC EMIA CONTINUE S 15 MINUTES AFTER THE FIRST DOSE. ORAL 11/28/2024 [id number] HARISHHEAT HER 2023 3 [facility] DIVISIO N DICLOFENAC NA 1% GEL,TOP APPLY 4 GM TO AFFECTED AREA(S) FOUR TIMES A DAY FOR PAIN/INF LAMMATIO N; NOT MORE THAN 16 GRAMS DAILY TO ANY LOWER EXTREMIT Y JOINT. NOT MORE THAN 8 GRAMS DAILY TO ANY UPPER EXTREMIT Y JOINT. MAX 32GM/DAY OVER ALL JOINTS. (MEASURE DOSE WITH RULER ATTACHED INSIDE BOX) TOPICA L 10/31/2024 [id number] 5 PATRICIO KONay Salas 2023 200 [facility] DIVISIO N DOCUSATE NA 100MG CAP TAKE ONE CAPSULE BY MOUTH TWICE A DAY FOR SOFTENIN G STOOL HOLD FOR LOOSE STOOL/DI ARRHEA. ORAL 10/24/2024 [id number] 4 Hamilton BROWN 2023 200 [facility] DIVISIO N DULOXETINE HCL 30MG CAP,EC TAKE ONE CAPSULE BY MOUTH ONCE A DAY FOR PTSD/MOO D/ANXIET Y/PAIN DO NOT ABRUPTLY DISCONTI NUE MEDICATI ON. ORAL DISCONT INUED (EDIT) 10/11/2025 [id number] 5 RACHEL LEACH 2024 90 [facility] DIVISIO N DULOXETINE HCL 30MG CAP,EC TAKE ONE CAPSULE BY MOUTH ONCE A DAY FOR PTSD/MOO D/ANXIET Y/PAIN DO NOT ABRUPTLY DISCONTI NUE MEDICATI ON. ORAL DISCONT INUED 05/22/2025 [id number] 5 RACHEL LEACH HASИРИНА 2023 90 [facility] DIVISIO N DULOXETINE HCL 30MG CAP,EC TAKE ONE CAPSULE BY MOUTH ONCE A DAY FOR PTSD/MOO D/ANXIET Y/PAIN DO NOT ABRUPTLY DISCONTI NUE MEDICATI ON. ORAL DISCONT INUED (EDIT) 02/02/2025 [id number] 4 KENYA MEDLEY 2023 90 [facility] DIVISIO N DULOXETINE HCL 60MG CAP,EC TAKE ONE CAPSULE BY MOUTH ONCE A DAY DO NOT ABRUPTLY DISCONTI NUE MEDICATI ON. ORAL SUSPEND ED 10/25/2025 [id number] 5 SARANYAMARTINRAJANIRACHEL Gutierrez BRUCE 2024 90 [facility] DIVISIO N EMPAGLIFLOZ IN 12.5MG/METF ORMIN 1000MG 24HR TAB,SA TAKE 2 TABLETS BY MOUTH ONCE A DAY FOR DIABETES TAKE WITH FOOD ORAL ACTIVE 11/14/2025 [id number] 5 RAKEL TORRES 2024 180 [facility] DIVISIO N EMPAGLIFLOZ IN 25MG TAB TAKE ONE TABLET BY MOUTH ONCE A DAY ORAL DISCONT INUED BY OFE R 12/21/2024 [id number] 5 RAKEL TORRES 2023 90 [facility] DIVISIO N EZETIMIBE 10MG TAB TAKE ONE TABLET BY MOUTH ONCE A DAY TO LOWER CHOLESTE ROL ORAL ACTIVE 02/12/2025 [id number] 5 DELORIS SUTTON 2023 90 [facility] EZETIMIBE 10MG TAB TAKE ONE TABLET BY MOUTH ONCE A DAY TO LOWER CHOLESTE ROL ORAL DISCONT INUED 01/24/2024 [id number] 4 Yon NAVARRO 2022 30 [facility] DIVISIO N FISH OIL 1000MG (500MG DHA/EPA) CAP,ORAL TAKE TWO CAPSULES BY MOUTH TWICE A DAY TO LOWER TRIGLYCE RIDES ORAL DISCONT INUED 04/26/2024 [id number] 4 Yon NAVARRO 2022 400 [facility] DIVISIO N GLIPIZIDE 10MG TAB TAKE ONE TABLET BY MOUTH TWO TIMES A DAY BEFORE MEALS FOR DIABETES TAKE 30 MINUTES BEFORE EATING. ORAL ACTIVE 11/14/2025 [id number] 5 RAKEL TORRES 2024 180 [facility] DIVISIO N GLIPIZIDE 5MG TAB TAKE ONE TABLET BY MOUTH TWO TIMES A DAY BEFORE MEALS TAKE 30 MINUTES BEFORE EATING. ORAL DISCONT INUED (EDIT) 12/14/2024 [id number] 4 RAKEL TORRES 2023 180 [facility] DIVISIO N HYDROXYZINE HCL 25MG TAB TAKE ONE TABLET BY MOUTH THREE TIMES A DAY NEEDED FOR ANXIETY *MAY CAUSE DROWSINE SS* ORAL SUSPEND ED 10/11/2025 [id number] 5 RACHEL LEACH 2024 270 [facility] DIVISIO N IBUPROFEN 600MG TAB TAKE ONE TABLET BY MOUTH EVERY EIGHT(8) HOURS NEEDED FOR PAIN TAKE WITH FOOD. ORAL DISCONT INUED BY OFE R 01/31/2024 [id number] 4 KEELY MCLAIN 2023 20 [facility] DIVISIO N IBUPROFEN 600MG TAB TAKE ONE TABLET BY MOUTH FOUR TIMES A DAY NEEDED FOR PAIN TAKE WITH FOOD. ORAL 05/20/2024 [id number] 4 NIURKA PINA 2023 30 [facility] DIVISIO N LIDOCAINE 5% PATCH APPLY 1 PATCH TO SKIN SITE NIGHTLY NEEDED FOR PAIN. MAY USE 1-3 PATCHES. PATCHES MAY BE CUT TO FIT ONTO FEET. APPLY PATCH AND PRESS FIRMLY FOR 10-15 SECONDS. KEEP ON FOR 12 HOURS THEN REMOVE PATCH FOR 12 HOURS. TRANSD ERMAL ACTIVE 07/19/2025 [id number] 4 OMEGA ELI Pamela 2023 90 [facility] DIVISIO N LIDOCAINE 5% PATCH APPLY 1 PATCH TO SKIN SITE NIGHTLY NEEDED FOR PAIN. MAY USE 1-3 PATCHES. PATCHES MAY BE CUT TO FIT ONTO FEET. APPLY PATCH AND PRESS FIRMLY FOR 10-15 SECONDS. KEEP ON FOR 12 HOURS THEN REMOVE PATCH FOR 12 HOURS. TRANSD ERMAL DISCONT INUED 07/07/2024 [id number] 4 FADI MACHUCA 2022 90 [facility] DIVISIO N LIDOCAINE 5% PATCH APPLY 1 PATCH TO SKIN SITE NIGHTLY NEEDED FOR PAIN. MAY USE 1-3 PATCHES. PATCHES MAY BE CUT TO FIT ONTO FEET. APPLY PATCH AND PRESS FIRMLY FOR 10-15 SECONDS. KEEP ON FOR 12 HOURS THEN REMOVE PATCH FOR 12 HOURS. TRANSD ERMAL DISCONT INUED 07/09/2025 [id number] 4 PATRICIO KO 2023 90 [facility] DIVISIO N METFORMIN HCL 500MG 24HR TAB,SA TAKE FOUR TABLETS BY MOUTH ONCE A DAY FOR BLOOD SUGAR CONTROL. TAKE WITH FOOD. AVOID ALCOHOL. DISCONTI NUE BEFORE GETTING XRAY DYE. ORAL DISCONT INUED BY OFE Marvin 11/28/2024 [id number] KAVON ORTEGA 2024 360 [facility] DIVISIO N METFORMIN HCL 500MG 24HR TAB,SA TAKE FOUR TABLETS BY MOUTH ONCE A DAY FOR BLOOD SUGAR CONTROL. TAKE WITH FOOD. AVOID ALCOHOL. DISCONTI NUE BEFORE GETTING XRAY DYE. ORAL DISCONT INUED 11/28/2024 [id number] 5 KAVON ORTEGA 2023 120 [facility] DIVISIO N METFORMIN HCL 500MG 24HR TAB,SA TAKE FOUR TABLETS BY MOUTH ONCE A DAY FOR BLOOD SUGAR CONTROL. TAKE WITH FOOD. AVOID ALCOHOL. DISCONTI NUE BEFORE GETTING XRAY DYE. ORAL DISCONT INUED 11/28/2024 [id number] 4 KAVON ORTEGA 2023 360 [facility] DIVISIO N METHYLPREDN ISOLONE 4MG TAB DOSEPAK,21 TAKE TABLETS BY MOUTH DIRECTED RASH TAKE 6 TABLETS BY MOUTH ON DAY ONE, THEN DECREASE BY ONE TABLET DAILY UNTIL GONE. TAKE WITH FOOD. ORAL 01/17/2024 [id number] 4 Charles GUY 2023 1 [facility] DIVISIO N OLODATEROL 2.5MCG/TIOT ROPIUM 2.5MCG/ACTU AT INHL,ORAL,6 0D,4GM INHALE 2 PUFFS BY ORAL INHALATI ON ONCE A DAY ADMINIST ER AT SAME TIME EACH DAY RESPIR ATORY (INHAL ATION) ACTIVE 09/13/2025 [id number] 5 MYA POP 2024 3 [facility] DIVISIO N OLODATEROL 2.5MCG/TIOT ROPIUM 2.5MCG/ACTU AT INHL,ORAL,6 0D,4GM INHALE 2 PUFFS BY ORAL INHALATI ON ONCE A DAY ADMINIST ER AT SAME TIME EACH DAY RESPIR ATORY (INHAL ATION) DISCONT INUED 09/13/2025 [id number] 5 MYA POP 2024 1 [facility] DIVISIO N OXYCODONE HCL 5MG TAB TAKE ONE TABLET BY MOUTH EVERY 6 HOURS NEEDED FOR POST-OPE RATIVE PAIN MAY CAUSE CONSTIPA TION ORAL DISCONT INUED 05/20/2024 [id number] 4 NIURKA PINA 2023 20 [facility] DIVISIO N OXYCODONE HCL 5MG TAB TAKE ONE TABLET BY MOUTH EVERY 6 HOURS FOR POST-OPE RATIVE PAIN MAY CAUSE CONSTIPA TION ORAL 06/02/2024 [id number] 4 Nay GENAO 2023 20 [facility] DIVISIO N PANTOPRAZOL E NA 40MG TAB,EC TAKE ONE TABLET BY MOUTH EVERY MORNING BEFORE A MEAL TO LOWER STOMACH ACID - TAKE 30 MINUTES BEFORE MEAL(S) ORAL 11/08/2023 [id number] 4 Yon NAVARRO 2022 90 [facility] DIVISIO N POLYETHYLEN E GLYCOL 3350 PWDR,ORAL MIX AND DRINK 1 CAPFUL BY MOUTH ONCE A DAY NEEDED FOR CONSTIPA TION (MEASURE WITH CAP AND MIX IN 8 OZ OF WATER) ORAL 10/24/2024 [id number] 4 Hamilton BROWN 2023 510 [facility] DIVISIO N PRAZOSIN HCL 2MG CAP TAKE THREE CAPSULES BY MOUTH AT BEDTIME FOR NIGHTMAR ES MAY CAUSE DIZZINES S OR DROWSINE SS. ORAL SUSPEND ED 10/11/2025 [id number] 5 RACHEL LEACH HASИРИНА 2024 270 [facility] DIVISIO N PRAZOSIN HCL 2MG CAP TAKE THREE CAPSULES BY MOUTH AT BEDTIME FOR NIGHTMAR ES MAY CAUSE DIZZINES S OR DROWSINE SS. ORAL DISCONT INUED 05/22/2025 [id number] RACHEL LEACH HASИРИНА 2023 270 [facility] DIVISIO N PRAZOSIN HCL 2MG CAP TAKE THREE CAPSULES BY MOUTH AT BEDTIME FOR NIGHTMAR ES MAY CAUSE DIZZINES S OR DROWSINE SS. ORAL DISCONT INUED (EDIT) 02/02/2025 [id number] 4 KENYA MEDLEY 2023 270 [facility] DIVISIO N PRAZOSIN HCL 2MG CAP TAKE THREE CAPSULES BY MOUTH AT BEDTIME FOR NIGHTMAR ES MAY CAUSE DIZZINES S OR DROWSINE SS. ORAL DISCONT INUED (EDIT) 10/18/2024 [id number] 4 KENYA MEDLEY 2023 90 [facility] DIVISIO N PRAZOSIN HCL 2MG CAP TAKE TWO CAPSULES BY MOUTH AT BEDTIME FOR NIGHTMAR ES MAY CAUSE DIZZINES S OR DROWSINE SS. ORAL DISCONT INUED (EDIT) 09/19/2024 [id number] 4 KENYA MEDLEY 2023 60 [facility] DIVISIO N PREGABALIN 100MG CAP,ORAL TAKE TWO CAPSULES BY MOUTH EVERY MORNING AND TAKE THREE CAPSULES EVERY EVENING FOR FIBROMYA LGIA *MAY CAUSE DROWSINE SS* ORAL DISCONT INUED (EDIT) 10/15/2024 [id number] 5 MICK LINDSAY T 2023 150 [facility] DIVISIO N PREGABALIN 100MG CAP,ORAL TAKE TWO CAPSULES BY MOUTH EVERY MORNING AND TAKE THREE CAPSULES EVERY EVENING FOR FIBROMYA LGIA *MAY CAUSE DROWSINE SS* ORAL DISCONT INUED 07/17/2024 [id number] 4 MICK LINDSAY 2023 150 [facility] DIVISIO N PREGABALIN 100MG CAP,ORAL TAKE TWO CAPSULES BY MOUTH EVERY MORNING AND TAKE THREE CAPSULES EVERY EVENING FOR FIBROMYA LGIA *MAY CAUSE DROWSINE SS* ORAL DISCONT INUED 05/02/2024 [id number] 4 MICK LINDSAY T 2023 150 [facility] DIVISIO N PREGABALIN 100MG CAP,ORAL TAKE TWO CAPSULES BY MOUTH EVERY MORNING AND TAKE THREE CAPSULES EVERY EVENING FOR FIBROMYA LGIA *MAY CAUSE DROWSINE SS* ORAL DISCONT INUED 01/14/2024 [id number] 4 MICK LINDSAY 2022 150 [facility] DIVISIO N PREGABALIN 300MG CAP,ORAL TAKE ONE CAPSULE BY MOUTH TWICE A DAY FOR FIBROMYA LGIA *MAY CAUSE DROWSINE SS* ORAL SUSPEND ED 03/30/2025 [id number] 5 MICK LINDSAY T 2024 60 [facility] DIVISIO N SEMAGLUTIDE 2MG/0.75ML INJ,SOLN,PE N,3ML INJECT 2MG UNDER THE SKIN EVERY WEEK FOR DIABETES SUBCUT ANEOUS SUSPEND ED 10/16/2025 [id number] RAKEL TORRES 2024 3 [facility] N SEMAGLUTIDE 2MG/0.75ML INJ,SOLN,PE N,3ML INJECT 2MG UNDER THE SKIN EVERY WEEK FOR DIABETES SUBCUT ANEOUS DISCONT INUED 08/30/2024 [id number] SLY LISET Hamilton 2023 1 [facility] N SEMAGLUTIDE 2MG/0.75ML INJ,SOLN,PE N,3ML INJECT 2MG UNDER THE SKIN EVERY WEEK FOR DIABETES SUBCUT ANEOUS 10/14/2024 [id number] SLY BALTAZARCELIA K 2023 3 [facility] N SINUS RINSE NEILMED PKT USE 1 PACKET NOSTRIL( S) ONCE A DAY FOR NASAL CONGESTI ON NASAL ACTIVE 10/28/2025 [id number] [facility] 2024 100 [facility] N SINUS RINSE NEILMED REGULAR KIT USE 1 KIT NOSTRIL( S) ONCE A DAY NASAL 11/01/2024 [id number] [facility] 2024 1 [facility] N SODIUM CHLORIDE 0.65% SOLN,NASAL SPRAY USE 1 SPRAY INTO NOSTRIL( S) EVERY 4 HOURS NEEDED NASAL ACTIVE 09/13/2025 [id number] [facility] 2024 45 [facility] N SODIUM CHLORIDE 0.65% SOLN,NASAL SPRAY USE 1 SPRAY INTO NOSTRIL( S) EVERY 4 HOURS NEEDED FOR NASAL CONGESTI ON NASAL 08/30/2024 [id number] 4 [facility] 2023 45 [facility] N SULFAMETHOX AZOLE 800MG/TRIME THOPRIM 160MG TAB TAKE 1 TABLET BY MOUTH EVERY 12 HOURS NEEDED TAKE WITH WATER/AV OID SUNLIGHT . ORAL 05/20/2024 [id number] NIURKA PINA 2023 14 [facility] TRAMADOL HCL 50MG TAB TAKE 1 TABLET BY MOUTH FOUR TIMES A DAY NEEDED FOR PAIN ORAL DISCONT INUED BY PROVIDE R 01/31/2024 [id number] KEELY MCLAIN 2023 8 [facility] TRAZODONE HCL 100MG TAB TAKE TWO TABLETS BY MOUTH AT BEDTIME ORAL ACTIVE 08/09/2025 [id number] RACHEL LEACH 2024 180 [facility] TRAZODONE HCL 100MG TAB TAKE TWO TABLETS BY MOUTH AT BEDTIME FOR DEPRESSI ON ORAL DISCONT INUED (EDIT) 10/18/2024 [id number] 4 KENYA MEDLEY 2023 180 [facility] TRAZODONE HCL 100MG TAB TAKE TWO TABLETS BY MOUTH AT BEDTIME FOR MOOD OR SLEEP. ORAL DISCONT INUED (EDIT) 07/07/2024 [id number] CHIOMA AGUIRRE I 2022 180 [facility] TRIAMCINOLO NE ACETONIDE 0.025% CREAM,TOP APPLY SPARINGL Y TO AFFECTED AREA(S) TWICE A DAY TOPICA L ACTIVE RONALST HONG S 2023 [facility] TRIAMCINOLO NE ACETONIDE 0.1% CREAM,TOP APPLY SPARINGL Y TO AFFECTED AREA(S) TWICE A DAY FOR CONTACT DERMATIT IS (EXTERNA L USE ONLY) TOPICA L 01/17/2024 [id number] 4 Charles GUY AURBrenda 2023 80 [facility] Allergies, Adverse Reactions, Alerts Combined list of allergies from Department of Defense and Veterans Affairs facilities. It does not include entries that were removed or entered in error. Substance Category Reaction Severity Reaction type Status Date Reported Comments Source ATORVASTATIN Propensity to adverse reactions to drug (finding) active 3 [facility] COREG 25MG TABLET Propensity to adverse reactions to drug (finding) active 9 [facility] LOVASTATIN Propensity to adverse reactions to drug (finding) Feeling irritable active 1 [facility] NIACIN Propensity to adverse reactions to drug (finding) active 9 [facility] Niacin Preparations Drug allergy (disorder) active 9 [facility] PITAVASTATIN Propensity to adverse reactions to drug (finding) active 2 [facility] PRAVASTATIN Propensity to adverse reactions to drug (finding) active 0 [facility] ROSUVASTATIN Propensity to adverse reactions to drug (finding) active 3 [facility] SHELLFISH Propensity to adverse reactions to food (finding) active 1 [facility] SHRIMP Propensity to adverse reactions to food (finding) Urticaria, Angioedema active 1 [facility] SIMVASTATIN Propensity to adverse reactions to drug (finding) active 9 [facility] Immunizations Combined list of available immunizations from the Department of Defense and Veterans Affairs facilities. 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 COVID-19 ([employer]), MRNA, LNP-S, PF, 30 MCG/0.3 ML DOSE 2 2020 208 complet ed PFR; [id number]; 1 [facility] COVID-19 ([employer]), MRNA, LNP-S, PF, 30 MCG/0.3 ML DOSE 1 2020 208 complet ed PFR; [id number]; 1 [facility] PNEUMOCOCCAL, UNSPECIFIED FORMULATION 2011 109 complet ed [facility] TDAP 2007 115 complet ed Left Deltoid [facility] REFUSED PNEUMOVAX (HISTORICAL) 2004 complet ed [facility] INFLUENZA (HISTORICAL) 1996 YONATHAN GUILLERMO 88 complet ed [facility] Results Combined list of recent chemistry, hematology and other laboratory results from Department of Defense and Veterans Affairs, ranging from 15 months to all on record, depending upon the facility. Order Name Results Value Reference Range Date Interpretation Specimen Comments Source HGA1C HEMOGLOBIN A1C/HEMOGLO BIN.TOTAL IN BLOOD 7.5 4.0 - 6.0 11/13 H Specimen Type: BLOOD No comment entered. Ordering Provider: SINDI TORRES Report Released Date/Time: Nov 13, 2024 02:28 PM Reporting Lab: [place] [address] Performing Lab: [address] VITAMIN D, 25-HYDROX Y 25-HYDROXYV ITAMIN D3 [MASS/VOLUM E] IN SERUM OR PLASMA 35.4 ng/mL 30 - 96 11/13 Specimen Type: SERUM No comment entered. Ordering Provider: SINDI TORRES Report Released Date/Time: Nov 13, 2024 02:33 PM Reporting Lab: [place] [address] Performing Lab: [place] [phone] ALPHA-FET OPROTEIN( STL-PB) ALPHA-FETOP ROTEIN(STL- PB) <2.00n g/mL 1 - 8.78 10/25 L Specimen Type: PLASMA No comment entered. Ordering Provider: MAGGY SANCHEZ Report Released Date/Time: Oct 25, 2024 10:53 AM Reporting Lab: [place] [address] Performing Lab: [address] CBC LEUKOCYTES [#/VOLUME] IN BLOOD BY AUTOMATED COUNT 5.4 10*3/u L 3.6 - 11.2 10/25 Specimen Type: BLOOD No comment entered. Ordering Provider: MAGGY SANCHEZ Report Released Date/Time: Oct 25, 2024 10:53 AM Reporting Lab: [address] [address] Performing Lab: [address] [address] [facility] CBC ERYTHROCYTE S [#/VOLUME] IN BLOOD BY AUTOMATED COUNT 5.06 10*6/u L 4.10 - 5.70 10/25 Specimen Type: BLOOD No comment entered. Ordering Provider: MAGGY SANCHEZ Report Released Date/Time: Oct 25, 2024 10:53 AM Reporting Lab: [address] [address] Performing Lab: [phone] CBC HEMOGLOBIN [MASS/VOLUM E] IN BLOOD 16.1 g/dL 13.1 - 16.8 10/25 Specimen Type: BLOOD No comment entered. Ordering Provider: MAGGY SANCHEZ Report Released Date/Time: Oct 25, 2024 10:53 AM Reporting Lab: [address] [address] Performing Lab: [phone] [place] [address] CBC HEMATOCRIT [VOLUME FRACTION] OF BLOOD 45.6 38.2 - 48.4 10/25 Specimen Type: BLOOD No comment entered. Ordering Provider: MAGGY SANCHEZ Report Released Date/Time: Oct 25, 2024 10:53 AM Reporting Lab: [address] [address] Performing Lab: [address] [address] [facility] CBC MCV [ENTITIC VOLUME] BY AUTOMATED COUNT 90.1 fL 80.0 - 100.0 10/25 Specimen Type: BLOOD No comment entered. Ordering Provider: MAGGY SANCHEZ Report Released Date/Time: Oct 25, 2024 10:53 AM Reporting Lab: [address] [address] Performing Lab: [address] [address] [facility] CBC MCH [ENTITIC MASS] BY AUTOMATED COUNT 31.8 pg 27.0 - 34.0 10/25 Specimen Type: BLOOD No comment entered. Ordering Provider: MAGGY SANCHEZ Report Released Date/Time: Oct 25, 2024 10:53 AM Reporting Lab: [address] [address] Performing Lab: [address] [phone] [place] [address] CBC MCHC [MASS/VOLUM E] BY AUTOMATED COUNT 35.3 g/dL 33.0 - 36.0 10/25 Specimen Type: BLOOD No comment entered. Ordering Provider: MAGGY SANCHEZ Report Released Date/Time: Oct 25, 2024 10:53 AM Reporting Lab: [address] [address] Performing Lab: [address] [address] [facility] CBC PLATELETS [#/VOLUME] IN BLOOD BY AUTOMATED COUNT 161 10*3/u L 150 - 400 10/25 Specimen Type: BLOOD No comment entered. Ordering Provider: MAGGY SANCHEZ Report Released Date/Time: Oct 25, 2024 10:53 AM Reporting Lab: [address] [address] Performing Lab: [address] [address] [facility] CBC PLATELET MEAN VOLUME [ENTITIC VOLUME] IN BLOOD BY AUTOMATED COUNT 10.5 fL 7.5 - 11.2 10/25 Specimen Type: BLOOD No comment entered. Ordering Provider: MAGGY SANCHEZ Report Released Date/Time: Oct 25, 2024 10:53 AM Reporting Lab: [facility] [address] [facility] [address] Performing Lab: [facility] [address] [facility] [place] [address] [facility] CBC ERYTHROCYTE DISTRIBUTIO N WIDTH [RATIO] BY AUTOMATED COUNT 12.5 11.8 - 15.1 10/25 Specimen Type: BLOOD No comment entered. Ordering Provider: MAGGY SANCHEZ Report Released Date/Time: Oct 25, 2024 10:53 AM Reporting Lab: [facility] [address] [facility] [place] [address] Performing Lab: [facility] [address] [facility] [place] [address] [facility] CBC LYMPHOCYTES /100 LEUKOCYTES IN BLOOD BY AUTOMATED COUNT 30 10/25 Specimen Type: BLOOD No comment entered. Ordering Provider: MAGGY SANCHEZ Report Released Date/Time: Oct 25, 2024 10:53 AM Reporting Lab: [facility] [address] [facility] [place] [address] Performing Lab: [facility] [address] [facility] [place] [address] [facility] CBC MONOCYTES/1 00 LEUKOCYTES IN BLOOD BY AUTOMATED COUNT 6 10/25 Specimen Type: BLOOD No comment entered. Ordering Provider: MAGGY SANCHEZ Report Released Date/Time: Oct 25, 2024 10:53 AM Reporting Lab: [facility] [address] [facility] [place] [address] Performing Lab: [facility] [address] [facility] [place] [address] [facility] CBC NEUTROPHILS /100 LEUKOCYTES IN BLOOD BY AUTOMATED COUNT 61 10/25 Specimen Type: BLOOD No comment entered. Ordering Provider: MAGGY SANCHEZ Report Released Date/Time: Oct 25, 2024 10:53 AM Reporting Lab: [facility] [address] [facility] [place] [address] Performing Lab: [facility] [address] [facility] [place] [address] [facility] CBC EOSINOPHILS /100 LEUKOCYTES IN BLOOD BY AUTOMATED COUNT 2 10/25 Specimen Type: BLOOD No comment entered. Ordering Provider: MAGGY SANCHEZ Report Released Date/Time: Oct 25, 2024 10:53 AM Reporting Lab: [place] [address] [address] [facility] [address] Performing Lab: [place] [address] [facility] [place] [address] [facility] CBC BASOPHILS/1 00 LEUKOCYTES IN BLOOD BY AUTOMATED COUNT 1 10/25 Specimen Type: BLOOD No comment entered. Ordering Provider: MAGGY SANCHEZ Report Released Date/Time: Oct 25, 2024 10:53 AM Reporting Lab: [place] [address] [facility] [address] Performing Lab: [place] [address] [facility] [address] [facility] CBC LYMPHOCYTES [#/VOLUME] IN BLOOD BY AUTOMATED COUNT 1.60 10*3/u L 0.77 - 4.50 10/25 Specimen Type: BLOOD No comment entered. Ordering Provider: MAGGY SANCHEZ Report Released Date/Time: Oct 25, 2024 10:53 AM Reporting Lab: [place] [address] [facility] [address] Performing Lab: [place] [address] [facility] [address] [facility] CBC MONOCYTES [#/VOLUME] IN BLOOD BY AUTOMATED COUNT 0.31 10*3/u L 0.19 - 0.80 10/25 Specimen Type: BLOOD No comment entered. Ordering Provider: MAGGY SANCHEZ Report Released Date/Time: Oct 25, 2024 10:53 AM Reporting Lab: [place] [address] [facility] [address] Performing Lab: [address] [address] [facility] CBC NEUTROPHILS [#/VOLUME] IN BLOOD BY AUTOMATED COUNT 3.29 10*3/u L 2.10 - 8.00 10/25 Specimen Type: BLOOD No comment entered. Ordering Provider: MAGGY SANCHEZ Report Released Date/Time: Oct 25, 2024 10:53 AM Reporting Lab: [place] [address] [facility] [address] Performing Lab: [address] [phone] CBC EOSINOPHILS [#/VOLUME] IN BLOOD BY AUTOMATED COUNT 0.10 10*3/u L 0.00 - 0.60 10/25 Specimen Type: BLOOD No comment entered. Ordering Provider: MAGGY SANCHEZ Report Released Date/Time: Oct 25, 2024 10:53 AM Reporting Lab: [place] [address] [facility] [address] Performing Lab: [address] [phone] [place] [address] CBC BASOPHILS [#/VOLUME] IN BLOOD BY AUTOMATED COUNT 0.04 10*3/u L 0.00 - 0.20 10/25 Specimen Type: BLOOD No comment entered. Ordering Provider: MAGGY SANCHEZ Report Released Date/Time: Oct 25, 2024 10:53 AM Reporting Lab: [place] [address] [facility] [address] Performing Lab: [address] [phone] [place] [address] COMPREHEN SIVE METABOLIC PANEL CREATININE [MASS/VOLUM E] IN SERUM OR PLASMA 0.70 mg/dL 0.7 - 1.3 10/25 Specimen Type: PLASMA Comment: LDL calculation invalid when Triglycerid e exceeds 250 mg/dl Ordering Provider: MAGGY SANCHEZ Report Released Date/Time: Oct 25, 2024 10:53 AM Reporting Lab: [facility] [address] [facility] [address] Performing Lab: [place] [address] [facility] [address] [facility] COMPREHEN SIVE METABOLIC PANEL UREA NITROGEN [MASS/VOLUM E] IN SERUM OR PLASMA 13.9 mg/dL 9.0 - 25.0 10/25 Specimen Type: PLASMA Comment: LDL calculation invalid when Triglycerid e exceeds 250 mg/dl Ordering Provider: MAGGY SANCHEZ Report Released Date/Time: Oct 25, 2024 10:53 AM Reporting Lab: [place] [address] [facility] [address] Performing Lab: [place] [address] [facility] [address] [facility] COMPREHEN SIVE METABOLIC PANEL GLUCOSE [MASS/VOLUM E] IN SERUM OR PLASMA 352 mg/dL 72 - 99 10/25 H Specimen Type: PLASMA Comment: LDL calculation invalid when Triglycerid e exceeds 250 mg/dl Ordering Provider: MAGGY SANCHEZ Report Released Date/Time: Oct 25, 2024 10:53 AM Reporting Lab: [facility] [address] [facility] [address] Performing Lab: [facility] [address] [facility] [address] [facility] COMPREHEN SIVE METABOLIC PANEL SODIUM [MOLES/VOLU ME] IN SERUM OR PLASMA 133 meq/L 136 - 145 10/25 L Specimen Type: PLASMA Comment: LDL calculation invalid when Triglycerid e exceeds 250 mg/dl Ordering Provider: MAGGY SANCHEZ Report Released Date/Time: Oct 25, 2024 10:53 AM Reporting Lab: [facility] [address] [facility] [address] Performing Lab: [facility] [address] [facility] [address] [facility] COMPREHEN SIVE METABOLIC PANEL POTASSIUM [MOLES/VOLU ME] IN SERUM OR PLASMA 3.7 meq/L 3.5 - 5 10/25 Specimen Type: PLASMA Comment: LDL calculation invalid when Triglycerid e exceeds 250 mg/dl Ordering Provider: MAGGY SANCHEZ Report Released Date/Time: Oct 25, 2024 10:53 AM Reporting Lab: [place] [address] [address] [facility] [address] Performing Lab: [place] [address] [facility] [address] [facility] COMPREHEN SIVE METABOLIC PANEL CHLORIDE [MOLES/VOLU ME] IN SERUM OR PLASMA 102 meq/L 98 - 107 10/25 Specimen Type: PLASMA Comment: LDL calculation invalid when Triglycerid e exceeds 250 mg/dl Ordering Provider: MAGGY SANCHEZ Report Released Date/Time: Oct 25, 2024 10:53 AM Reporting Lab: [place] [address] [address] [facility] [address] Performing Lab: [place] [address] [address] [facility] [address] [facility] COMPREHEN SIVE METABOLIC PANEL CARBON DIOXIDE, TOTAL [MOLES/VOLU ME] IN SERUM OR PLASMA 18 meq/L 22 - 31 10/25 L Specimen Type: PLASMA Comment: LDL calculation invalid when Triglycerid e exceeds 250 mg/dl Ordering Provider: MAGGY SANCHEZ Report Released Date/Time: Oct 25, 2024 10:53 AM Reporting Lab: [place] [address] [address] [facility] [address] Performing Lab: [place] [address] [address] [facility] [address] [facility] COMPREHEN SIVE METABOLIC PANEL CALCIUM [MASS/VOLUM E] IN SERUM OR PLASMA 8.7 mg/dL 8.4 - 10.4 10/25 Specimen Type: PLASMA Comment: LDL calculation invalid when Triglycerid e exceeds 250 mg/dl Ordering Provider: MAGGY SANCHEZ Report Released Date/Time: Oct 25, 2024 10:53 AM Reporting Lab: [place] [address] [address] [facility] [address] Performing Lab: [place] [address] [facility] [address] [facility] COMPREHEN SIVE METABOLIC PANEL PROTEIN [MASS/VOLUM E] IN SERUM OR PLASMA 7.7 g/dL 6 - 8.6 10/25 Specimen Type: PLASMA Comment: LDL calculation invalid when Triglycerid e exceeds 250 mg/dl Ordering Provider: MAGGY SANCHEZ Report Released Date/Time: Oct 25, 2024 10:53 AM Reporting Lab: [place] [address] [facility] [address] Performing Lab: [place] [address] [facility] [address] [facility] COMPREHEN SIVE METABOLIC PANEL ALBUMIN [MASS/VOLUM E] IN SERUM OR PLASMA 4.0 g/dL 3.4 - 5 10/25 Specimen Type: PLASMA Comment: LDL calculation invalid when Triglycerid e exceeds 250 mg/dl Ordering Provider: MAGGY SANCHEZ Report Released Date/Time: Oct 25, 2024 10:53 AM Reporting Lab: [place] [address] [facility] [address] Performing Lab: [place] [address] [facility] [address] [facility] COMPREHEN SIVE METABOLIC PANEL BILIRUBIN.T OTAL [MASS/VOLUM E] IN SERUM OR PLASMA 0.5 mg/dL 0.2 - 1.2 10/25 Specimen Type: PLASMA Comment: LDL calculation invalid when Triglycerid e exceeds 250 mg/dl Ordering Provider: MAGGY SANCHEZ Report Released Date/Time: Oct 25, 2024 10:53 AM Reporting Lab: [place] [address] [facility] [address] Performing Lab: [place] [address] [facility] [address] [facility] COMPREHEN SIVE METABOLIC PANEL ALKALINE PHOSPHATASE [ENZYMATIC ACTIVITY/VO LUME] IN SERUM OR PLASMA 121 U/L 40 - 150 10/25 Specimen Type: PLASMA Comment: LDL calculation invalid when Triglycerid e exceeds 250 mg/dl Ordering Provider: MAGGY SANCHEZ Report Released Date/Time: Oct 25, 2024 10:53 AM Reporting Lab: [place] [address] [facility] [address] Performing Lab: [place] [address] [place] [phone] COMPREHEN SIVE METABOLIC PANEL ASPARTATE AMINOTRANSF ERASE [ENZYMATIC ACTIVITY/VO LUME] IN SERUM OR PLASMA 35 U/L 5 - 34 10/25 H Specimen Type: PLASMA Comment: LDL calculation invalid when Triglycerid e exceeds 250 mg/dl Ordering Provider: MAGGY SANCHEZ Report Released Date/Time: Oct 25, 2024 10:53 AM Reporting Lab: [place] [address] [place] [phone] Performing Lab: [place] [address] [facility] [address] [facility] COMPREHEN SIVE METABOLIC PANEL ALANINE AMINOTRANSF ERASE [ENZYMATIC ACTIVITY/VO LUME] IN SERUM OR PLASMA 38 U/L 8 - 40 10/25 Specimen Type: PLASMA Comment: LDL calculation invalid when Triglycerid e exceeds 250 mg/dl Ordering Provider: MAGGY SANCHEZ Report Released Date/Time: Oct 25, 2024 10:53 AM Reporting Lab: [place] [address] [facility] [address] Performing Lab: [place] [address] [facility] [address] [facility] COMPREHEN SIVE METABOLIC PANEL GLOMERULAR FILTRATION RATE/1.73 SQ M.PREDICTED [VOLUME RATE/AREA] IN SERUM, PLASMA OR BLOOD BY CREATININE- BASED FORMULA (CKD-EPI 2020) 108.1 60 10/25 Specimen Type: PLASMA Comment: LDL calculation invalid when Triglycerid e exceeds 250 mg/dl Ordering Provider: MAGGY SANCHEZ Report Released Date/Time: Oct 25, 2024 10:53 AM Reporting Lab: [facility] [address] [facility] [address] Performing Lab: [facility] [address] [facility] [address] [facility] CONJ. BILIRUBIN BILIRUBIN.C ONJUGATED [MASS/VOLUM E] IN SERUM OR PLASMA 0.2 mg/dL 0 - 0.5 10/25 Specimen Type: PLASMA Comment: LDL calculation invalid when Triglycerid e exceeds 250 mg/dl Ordering Provider: MAGGY SANCHEZ Report Released Date/Time: Oct 25, 2024 10:53 AM Reporting Lab: [facility] [address] [facility] [address] Performing Lab: [place] [address] [facility] [address] [facility] LIPID PANEL (STL) CHOLESTEROL [MASS/VOLUM E] IN SERUM OR PLASMA 158 mg/dL 0 - 200 10/25 Specimen Type: PLASMA Comment: LDL calculation invalid when Triglycerid e exceeds 250 mg/dl Ordering Provider: MAGGY SANCHEZ Report Released Date/Time: Oct 25, 2024 10:53 AM Reporting Lab: [facility] [address] [facility] [address] Performing Lab: [place] [address] [address] [facility] [address] [facility] LIPID PANEL (STL) TRIGLYCERID E [MASS/VOLUM E] IN SERUM OR PLASMA 401 mg/dL 0 - 150 10/25 H Specimen Type: PLASMA Comment: LDL calculation invalid when Triglycerid e exceeds 250 mg/dl Ordering Provider: MAGGY SANCHEZ Report Released Date/Time: Oct 25, 2024 10:53 AM Reporting Lab: [facility] [address] [facility] [address] Performing Lab: [facility] [address] [facility] [address] [facility] LIPID PANEL (STL) CHOLESTEROL IN LDL [MASS/VOLUM E] IN SERUM OR PLASMA BY DIRECT ASSAY 73 mg/dL 100 10/25 L Specimen Type: PLASMA Comment: LDL calculation invalid when Triglycerid e exceeds 250 mg/dl Ordering Provider: MAGGY SANCHEZ Report Released Date/Time: Oct 25, 2024 10:53 AM Reporting Lab: [place] [address] [facility] [address] Performing Lab: [place] [address] [facility] [address] [facility] LIPID PANEL (STL) CHOLESTEROL IN LDL [MASS/VOLUM E] IN SERUM OR PLASMA BY CALCULATION commen tmg/dL 10/25 Specimen Type: PLASMA Comment: LDL calculation invalid when Triglycerid e exceeds 250 mg/dl Ordering Provider: MAGGY SANCHEZ Report Released Date/Time: Oct 25, 2024 10:53 AM Reporting Lab: [address] [address] Performing Lab: [place] [address] [facility] [address] [facility] LIPID PANEL (STL) CHOLESTEROL IN HDL [MASS/VOLUM E] IN SERUM OR PLASMA 38 mg/dL 40 10/25 L Specimen Type: PLASMA Comment: LDL calculation invalid when Triglycerid e exceeds 250 mg/dl Ordering Provider: MAGGY SANCHEZ Report Released Date/Time: Oct 25, 2024 10:53 AM Reporting Lab: [place] [address] [facility] [address] Performing Lab: [place] [address] [facility] [address] [facility] PT/INR NEW ([facility]) PROTHROMBIN TIME (PT) 12.5 s 9.4 - 12.5 10/25 Specimen Type: PLASMA No comment entered. Ordering Provider: MAGGY SANCHEZ Report Released Date/Time: Oct 25, 2024 10:53 AM Reporting Lab: [place] [address] [facility] [address] Performing Lab: [address] [phone] [facility] PT/INR NEW ([facility]) INR IN PLATELET POOR PLASMA BY COAGULATION ASSAY 1.1 {INR} 10/25 Specimen Type: PLASMA No comment entered. Ordering Provider: MAGGY SANCHEZ Report Released Date/Time: Oct 25, 2024 10:53 AM Reporting Lab: [address] [address] Performing Lab: [address] [address] [facility] GLUCOSE,B LOOD-poct ([facility]) GLUCOSE [MASS/VOLUM E] IN BLOOD BY AUTOMATED TEST STRIP 266 mg/dL 72 - 99 04/20 H Specimen Type: BLOOD Comment: Test Performed by: [id number] Meter #: [id number] Ordering Provider: ZAIRE PINA Report Released Date/Time: Apr 20, 2024 12:07 PM Reporting Lab: [place] [address] [facility] [place] [address] Performing Lab: [address] [address] [facility] GLUCOSE,B LOOD-poct ([facility]) GLUCOSE [MASS/VOLUM E] IN BLOOD BY AUTOMATED TEST STRIP 157 mg/dL 72 - 99 04/20 H Specimen Type: BLOOD Comment: Test Performed by: [id number] Meter #: [id number] Ordering Provider: ZAIRE PINA Report Released Date/Time: Apr 20, 2024 05:38 AM Reporting Lab: [address] [address] Performing Lab: [address] [address] [facility] Vital Signs Combined list of inpatient and outpatient Vital Signs from Department of Defense and [employer] Affairs, ranging from 12 months to all on record, depending upon the facility. Vital Sign Value Date Comments Source SYSTOLIC BLOOD PRESSURE 144 11/13/2024 13:33:23 [facility] DIASTOLIC BLOOD PRESSURE 83 11/13/2024 13:33:23 [facility] PULSE OXIMETRY 97 11/13/2024 13:33:23 [facility] WEIGHT 273.8 11/13/2024 13:33:23 [facility] BMI 37 kg/m2 11/13/2024 13:33:23 [facility] TEMPERATURE 98 11/13/2024 13:33:23 [facility] PULSE 82 11/13/2024 13:33:23 [facility] RESPIRATION 18 11/13/2024 13:33:23 [facility] SYSTOLIC BLOOD PRESSURE 126 11/01/2024 15:48:17 [facility] DIASTOLIC BLOOD PRESSURE 79 11/01/2024 15:48:17 [facility] PULSE OXIMETRY 96 11/01/2024 15:48:17 [facility] WEIGHT 277.9 11/01/2024 15:48:17 [facility] BMI 38 kg/m2 11/01/2024 15:48:17 [facility] TEMPERATURE 97 11/01/2024 15:48:17 [facility] PULSE 75 11/01/2024 15:48:17 [facility] RESPIRATION 18 11/01/2024 15:48:17 [facility] SYSTOLIC BLOOD PRESSURE 128 10/25/2024 10:32:09 [facility] DIASTOLIC BLOOD PRESSURE 77 10/25/2024 10:32:09 [facility] PULSE OXIMETRY 97 10/25/2024 10:32:09 [facility] WEIGHT 276 10/25/2024 10:32:09 [facility] BMI 38 kg/m2 10/25/2024 10:32:09 [facility] PAIN 9 10/25/2024 10:32:09 [facility] TEMPERATURE 97.1 10/25/2024 10:32:09 [facility] PULSE 71 10/25/2024 10:32:09 [facility] RESPIRATION 16 10/25/2024 10:32:09 [facility] SYSTOLIC BLOOD PRESSURE 137 09/12/2024 14:35:33 [facility] DIASTOLIC BLOOD PRESSURE 77 09/12/2024 14:35:33 [facility] PULSE OXIMETRY 96 09/12/2024 14:35:33 Allie [facility] WEIGHT 277.8 09/12/2024 14:35:33 [facility] BMI 38 kg/m2 09/12/2024 14:35:33 [facility] PAIN 7 09/12/2024 14:35:33 [facility] TEMPERATURE 98 09/12/2024 14:35:33 [facility] PULSE 91 09/12/2024 14:35:33 [facility] RESPIRATION 18 09/12/2024 14:35:33 [facility] SYSTOLIC BLOOD PRESSURE 142 08/02/2024 14:14:07 [facility] DIASTOLIC BLOOD PRESSURE 81 08/02/2024 14:14:07 [facility] PULSE OXIMETRY 97 08/02/2024 14:14:07 [facility] WEIGHT 282.3 08/02/2024 14:14:07 [facility] BMI 38 kg/m2 08/02/2024 14:14:07 [facility] TEMPERATURE 97.1 08/02/2024 14:14:07 [facility] PULSE 80 08/02/2024 14:14:07 [facility] RESPIRATION 18 08/02/2024 14:14:07 [facility] Encounters Combined list of: 1) Encounters from Department of [facility] Affairs facilities going backup to the last 18 months, not all VA inpatient encounters are included; 2) [facility]counters [facility] facilities going backup to 280 months. Location Location Details Encounter Type Encounter Number Reason For Visit Attending Provider ADM Date DC Date Status Disposition Source [facility] Outpatient Encounter [id number] 06/02 [facility] OFFICE O/P EST MOD 30-39 MIN 48810-3.65 [id number] Diagnos is: ICD-10- CM E66.9 Obesity , unspeci KRISTOPHER Dubon WNBrenda K 06/02 [facility] MANUAL THERAPY 1/> [place] [id number] [id number] Diagnos is: ICD-10- CM M79.7 Fibromy irma RAMSAY MA TTHEW J 06/05 [facility] Outpatient Encounter [id number] 06/05 [facility] Outpatient Encounter [id number] [id number] 06/05 [facility] PSYTX W PT 60 MINUTES 79191-4.65 [id number] Diagnos is: ICD-10- CM F43.12 Post-tr aumatic stress disorde r, chronic DAYNA HASSAN T 06/06 [facility] Outpatient Encounter [id number] DAYNA HASSAN T 06/06 [facility] HC PRO PHONE CALL 21-30 MIN [id number] [id number] 7 Diagnos is: ICD-10- CM Z03.89 Encntr for obs for oth suspect ed disease s and cond ruled out DEIMUND,CR YSTAL 06/19 [facility] Outpatient Encounter [id number] [id number] Diagnos is: ICD-10- CM F44.5 Convers ion disorde r with seizure s or convuls ions Yumi MICHAUD 06/21 [facility] Outpatient Encounter [id number] [id number] 7 Diagnos is: ICD-10- CM Z03.89 Encntr for obs for oth suspect ed disease s and cond ruled out DEIMUND,CR YSTAL 06/23 [facility] Outpatient Encounter [id number] [id number] 1 06/27 [facility] Outpatient Encounter [id number] [id number] 06/28 [facility] OFF/OP EST NOVEMBER X REQ PHY/QHP [id number] [id number] 2 Diagnos is: ICD-10- CM Z03.89 Encntr for obs for oth suspect ed disease s and cond ruled out DEIMUND,CR YSTAL 06/29 [facility] Outpatient Encounter [id number] [id number] Yumi WASHBURN 07/04 [facility] Outpatient Encounter [id number] [id number] 07/05 [facility] Outpatient Encounter [id number] [id number] 07[facility]05 [facility] PS[facility]TX W PT 60 MINUTES [id number] [id number] Diagnos is: ICD-10- CM F44.5 Convers ion disorde r with seizure s or convuls ions ROCIO AVILA 07/06 [facility] MTMS BY PHARM EST 15 MIN 58471-2.65 [id number] Diagnos is: ICD-10- CM 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 BRIGETTE,TIMOT HY D 07/07 [facility] Outpatient Encounter [id number] [id number] Diagnos is: ICD-10- CM F43.12 Post-tr aumatic stress disorde r, chronic CARLA,KLA RA I 07/07 [facility] OFFICE O/P EST MOD 30-39 MIN [id number] [id number] Diagnos is: ICD-10- CM F52.21 Male erectil e disorde r Yon BELLE 07/10 [facility] Outpatient Encounter [id number] [id number] 1 JOSE PIPER 07/10 [facility] Outpatient Encounter [id number] [id number] 07/12 [facility] Outpatient Encounter [id number] [id number] 7 Diagnos is: ICD-10- CM Z03.89 Encntr for obs for oth suspect ed disease s and cond ruled out SARIAH AGUILAR 07/13 [facility] Outpatient Encounter [id number] [id number] 07/17 [facility] MANUAL THERAPY 1/ [place] [id number] [id number] Diagnos is: ICD-10- CM M79.7 Fibromy irma MCELROYALBA MELENDEZ TTHEW J 07/17 [facility] PSYTX W PT 60 MINUTES [id number] [id number] Diagnos is: ICD-10- CM F43.12 Post-tr aumatic stress disorde r, chronic HASSAN,DAYNA D T 07/17 [facility] HC PRO PHONE CALL 5-10 MIN [id number] [id number] 7 Diagnos is: ICD-10- CM Z03.89 Encntr for obs for oth suspect ed disease s and cond ruled out SARIAH AGUILAR 07/18 [facility] Outpatient Encounter [id number] [id number] 6 07/19 [facility] Outpatient Encounter [id number] [id number] Norah MEI 08/01 [facility] Outpatient Encounter [id number] [id number] 08/03 [facility] Outpatient Encounter [id number] [id number] Diagnos is: ICD-10- CM F44.5 Convers ion disorde r with seizure s or convuls ions Yumi MICHAUD 08/03 [facility] Outpatient Encounter [id number] [id number] TALYA ALBERTO D 08/08 [facility] Outpatient Encounter [id number] [id number] 08/11 [facility] Outpatient Encounter [id number] [id number] 08/21 [facility] Outpatient Encounter [id number] [id number] 3 DEIMUND,CR YSTAL 08/22 [facility] Outpatient Encounter [id number] [id number] 3 08/29 [facility] PSYTX W PT 60 MINUTES [id number] [id number] Diagnos is: ICD-10- CM F43.12 Post-tr aumatic stress disorde r, chronic DAYNA HASSAN T 08/29 [facility] Outpatient Encounter [id number] [id number] DAYNA HASSAN T 08/29 [facility] Outpatient Encounter [id number] [id number] 08/30 [facility] OFF/OP EST MAY X REQ PHY/QHP [id number] [id number] 2 Diagnos is: ICD-10- CM Z03.89 Encntr for obs for oth suspect ed disease s and cond ruled out DEIMUND,CR YSTAL 08/30 [facility] Outpatient Encounter [id number] [id number] 7 Diagnos is: ICD-10- CM Z03.89 Encntr for obs for oth suspect ed disease s and cond ruled out DEIMUND,CR YSTAL 08/30 [facility] QNHP OL DIG ASSMT&MGMT 11-20 [id number] [id number] 2 Diagnos is: ICD-10- CM E11.8 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 GEMINI AHUJA 08/30 [facility] OFFICE O/P EST MOD 30 MIN [id number] [id number] 3 Diagnos is: ICD-10- CM E66.9 Obesity , unspeci fied KRISTOPHER HEART 08/30 [facility] OFFICE O/P EST MOD 30 MIN [id number] [id number] 1 Diagnos is: ICD-10- CM R06.00 Dyspnea , unspeci fied GABILUISVÍCTOR PEREZINA 08/30 [facility] QNHP OL DIG ASSMT&MGMT 5-10 38572-4.65 [id number] Diagnos is: ICD-10- CM E11.8 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 Outpatient Encounter [id number] [id number] 09/04 [facility] Outpatient Encounter [id number] [id number] 09/06 [facility] N [facility] PSYCHOPHYS IOLOGICAL THERAPY [id number] [id number] Diagnos is: ICD-10- CM F44.5 Convers ion disorde r with seizure s or convuls ions ROCIO AVILA 09/07 [facility] OFFICE O/P EST MOD 30 MIN [id number] [id number] 6 Diagnos is: ICD-10- CM E66.9 Obesity , unspeci fied KRISTOPHER HEART K 09/08 [facility] Outpatient Encounter [id number] [id number] 1 FINN MCKEON S 09/11 [facility] Outpatient Encounter [id number] [id number] 09/12 [facility] EMERGENCY [place] MDM 83070-3.65 [id number] 7 Diagnos is: ICD-10- CM R45.851 Suicida l ideatio HANH London 09/12 [facility] SUICIDE RISK ASSESSED [id number] [id number] 6 Diagnos is: ICD-10- CM R45.851 Suicida l ideatio Myrtle Devine 09/12 [facility] Inpatient Encounter [id number] [id number] Admit Reason: SUICIDA L IDEATIO LEFTY NGUYEN MMAD 09/13 Discharge from inpatient treatment to the [facility] (OPT-PR) [facility] Inpatient Encounter [id number] [id number] JOY SANCHEZ 09/13 [facility] N [facility] Inpatient Encounter [id number] [id number] JOY SANCHEZ L 09/13 [facility] Inpatient Encounter [id number] [id number] JOY SANCHEZ L 09/13 [facility] Outpatient Encounter [id number] [id number] 09/13 [facility] Inpatient Encounter [id number] [id number] 09/13 [facility] 1ST HOSP IP/OBS HIGH 75 [id number] [id number] Diagnos is: ICD-10- CM F43.21 Adjustm ent disorde r with depress ed mood LEFTY GAMBINO MMANay 09/13 [facility] Inpatient Encounter [id number] [id number] 09/13 [facility] 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 CONTROLLER ASSESSMENT 62008-2.65 [id number] Diagnos is: ICD-10- CM Z71.81 Spiritu al or religio us child guidance counselor KHARI Sr 09/13 [facility] Inpatient Encounter [id number] [id number] 09/13 [facility] Outpatient Encounter [id number] [id number] [place] ESTEFANITT09/13 [facility] Inpatient Encounter [id number] [id number] [place] [facility] ENYETT09/13 [facility] HOSP IP/OBS DSCHRG MGMT >30 82150-2.65 [id number] Diagnos is: ICD-10- CM F43.21 Adjustm ent disorde r with depress ed mood IMMANUELLEFTY PAL MMAD 09/13 [facility] Inpatient Encounter [id number] [id number] KAYCEE LINDSAY 09/13 [facility] CASE MANAGEMENT 44487-9.65 [id number] 006 Diagnos is: ICD-10- CM F43.10 Post-tr aumatic stress disorde r, unspeci fied ADDISON ANN 09/14 [facility] HC PRO PHONE CALL 11-20 MIN 48099-5.65 [id number] Diagnos is: ICD-10- CM M54.50 Low back pain, unspeci fied [place] SALVADOR09/14 [facility] HC PRO PHONE CALL 11-20 MIN 77228-9.65 [id number] Diagnos is: ICD-10- CM F43.21 Adjustm ent disorde r with depress ed mood JOSE PIPER 09/14 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 Outpatient Encounter [id number] [id number] [place] 09/19 [facility] PSYTX W PT 60 MINUTES [id number] [id number] Diagnos is: ICD-10- CM F43.12 Post-tr aumatic stress disorde r, chronic DAYNA HASSAN D T 09/19 [facility] Outpatient Encounter [id number] [id number] 09/20 [facility] Outpatient Encounter [id number] [id number] 09/21 [facility] HC PRO PHONE CALL 5-10 MIN [id number] [id number] Diagnos is: ICD-10- CM Z71.9 Tactical Intelligence Officer ing, unspeci fied [place] SALVADOR 09/21 [facility] N [facility] PSYCHOPHYS IOLOGICAL THERAPY [id number] [id number] Diagnos is: ICD-10- CM F44.5 Convers ion disorde r with seizure s or convuls ions ROCIO AVILA 09/21 [facility] Outpatient Encounter [id number] [id number] 09/22 [facility] N [facility] Outpatient Encounter [id number] [id number] 09/22 [facility] Encounter [id number] [id number] 09/22 [facility] Outpatient Encounter [id number] [id number] 09/25 [facility] Encounter [id number] [id number] 4 [place] SALVADOR 09/26 [facility] Outpatient Encounter [id number] [id number] 09/26 [facility] Encounter [id number] [id number] 09/26 [facility] O/P EST SF 10 MIN 32675-4.65 [id number] Diagnos is: ICD-10- CM N52.9 Male erectil e dysfunc tion, unspeci fied ROSARIO SANCHEZ MA 09/27 [facility] N [facility] Outpatient Encounter [id number] [id number] DEALEJANDRO HILL YSTAL 09/28 [facility] PSYTX W PT 60 MINUTES 50677-6.65 [id number] 564 Diagnos is: ICD-10- CM F43.12 Post-tr aumatic stress disorde r, chronic DAYNA HASSAN T 10/01 [facility] MTMS BY PHARM ADDL 15 MIN 00571-9.65 [id number] Diagnos is: ICD-10- CM Z79.899 Other skilled nursing (curren t) drug therapy ISABEL KO J 10/02 [facility] QNHP OL DIG ASSMT&MGMT 5-10 [id number] [id number] 7 Diagnos is: ICD-10- CM M79.7 Fibromy FANY Tapia D 10/02 [facility] Outpatient Encounter [id number] [id number] 10/03 [facility] HC PRO PHONE CALL 5-10 MIN 47406-6.65 [id number] 3 Diagnos is: ICD-10- CM Z03.89 Encntr for obs for oth suspect ed disease s and cond ruled out ALEJANDRO RUSSO YSTAL 10/03 [facility] OFFICE O/P EST MOD 30 MIN 37862-4.65 [id number] Diagnos is: ICD-10- CM M79.7 Fibromy KAYCEE Walter T 10/05 [facility] Outpatient Encounter 17142-9.65 [id number] 4 10/09 [facility] Outpatient Encounter [id number] [id number] Myrtle CHAVEZ KEON RAKEL 10/10 [facility] HC PRO PHONE CALL 21-30 MIN 90296-8.65 [id number] Diagnos is: ICD-10- CM G89.4 Chronic pain syndrom e MADELEINEHamilton KOTAJAVIERNORMA 10/11 [facility] PSYTX W PT 60 MINUTES 67478-2.65 [id number] 625 Diagnos is: ICD-10- CM F43.12 Post-tr aumatic stress disorde r, chronic DAYNA HASSAN T 10/16 [facility] OFFICE O/P EST MOD 30 MIN 90319-3.65 [id number] Diagnos is: ICD-10- CM F43.12 Post-tr aumatic stress disorde r, chronic TOCMyrtle GREGORIO 10/17 [facility] Outpatient Encounter [id number] [id number] RYAN CAMPBELL 10/17 [facility] Outpatient Encounter [id number] [id number] Josue HOOD A 10/17 [facility] Outpatient Encounter [id number] [id number] JOSE PIPER 10/22 [facility] Outpatient Encounter [id number] [id number] 10/22 [facility] OFFICE O/P EST HI 40 MIN 28001-4.65 [id number] 726 Diagnos is: ICD-10- CM K56.600 Partial intesti nal obstruc tion, unspeci fied as to cause KAYCEE LINDSAY Shelley Cain 10/23 [facility] PSYTX W PT 30 MINUTES 26807-3.65 [id number] Diagnos is: ICD-10- CM R41.89 Oth symptom s and signs w cogniti ve functio ns and awarene ss ALEX WILSONIFER A 10/25 [facility] MTMS BY PHARM ADDL 15 MIN 76387-6.65 [id number] 087 Diagnos is: ICD-10- CM Z79.899 Other skilled nursing (curren t) drug therapy ISABEL KO ID J 10/30 [facility] ACUPUNCT W/O STIMUL 15 MIN 50541-4.65 [id number] Diagnos is: ICD-10- CM M79.7 Fibromy CHRISTELLE Longoria 11/01 [facility] MTMS BY PHARM EST 15 MIN 87735-4.65 [id number] 593 Diagnos is: ICD-10- CM Z79.899 Other skilled nursing (curren t) drug therapy ISABEL KO ID J 11/05 [facility] HC PRO PHONE CALL 5-10 MIN 70262-4.65 [id number] 624 Diagnos is: ICD-10- CM Z71.9 Tactical Intelligence Officer ing, unspeci fied [place] 11/07 [facility] Outpatient Encounter [id number] [id number] SHAD GORDILLO 11/08 [facility] Outpatient Encounter [id number] [id number] KAYCEE LINDSAY Shelley T 11/13 [facility] OFFICE O/P EST LOW 20 MIN 63758-6.65 [id number] 118 Diagnos is: ICD-10- CM M54.50 Low back pain, unspeci fied KAYCEE LINDSAY T 11/13 [facility] PSYTX W PT 45 MINUTES 49515-3.65 [id number] 140 Diagnos is: ICD-10- CM F43.12 Post-tr aumatic stress disorde r, chronic HASSAN,DAYNA D T 11/13 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 Outpatient Encounter [id number] [id number] GEMINI AHUJA L 11/27 [facility] Outpatient Encounter [id number] [id number] 8 Diagnos is: ICD-10- CM E11.8 Type 2 diabete s mellitu s with unspeci fied complic ENEDINA Shanks 11/27 [facility] Outpatient Encounter [id number] [id number] 12/04 [facility] MTMS BY PHARM ADDL 15 MIN 24290-3.65 [id number] 217 Diagnos is: ICD-10- CM Z79.899 Other skilled nursing (curren t) drug therapy GORDON GAMBLE Love 12/10 [facility] SELF-MGMT EDUC & TRAIN 1 PT 30715-3.65 [id number] 470 Diagnos is: ICD-10- CM R26.0 Ataxic gait RONALPRASAD JUSTUS Tee 12/11 [facility] Outpatient Encounter [id number]. [id number] 12/12 [facility] OFFICE O/P EST MOD 30 MIN 01858-5. [id number] 9 Diagnos is: ICD-10- CM E11.8 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 Josue TORRES 12/13 [facility] Outpatient Encounter 97760-9. [id number] 12/13 [facility] Outpatient Encounter [id number]. [id number] [place] SALVADOR 12/13 [facility] Outpatient Encounter [id number] [id number] 5 Josue TORRES 12/14 [facility] Outpatient Encounter 66485-1.65 [id number] 6 12/14 [facility] Outpatient Encounter [id number] [id number] BREN SWARTZ Myrtle 12/14 [facility] N [facility] OFFICE O/P EST SF 10 MIN 69751-0.65 [id number] Diagnos is: ICD-10- CM R21 Rash and other nonspec ific skin eruptio n RAYMON VILLEDA 12/14 [facility] Outpatient Encounter [id number]. [id number] 12/17 [facility] EMERGENCY DEPT VISIT MOD MDM [id number] [id number] Diagnos is: ICD-10- CM R21 Rash and other nonspec ific skin joseptkarlos n EPIFANIO GUYA 12/17 [facility] Outpatient Encounter [id number]. [id number] EPIFANIO GUY 12/17 [facility] OFF/OP CNSLTJ NEW/EST LOW 30 [id number] [id number] Diagnos is: ICD-10- CM K75.81 Nonalco holic steatoh epatiti s (QUIJANO) MOE FERNÁNDEZ 12/18 [facility] OFF/OP EST MAY X REQ PHY/QHP [id number] [id number] Diagnos is: ICD-10- CM N52.9 Male erectil e dysfunc tion, unspeci fiROSARIO Graves MA 12/18 [facility] PSYTX W PT 60 MINUTES 03731-6.65 [id number] Diagnos is: ICD-10- CM F43.12 Post-tr aumatic stress disorde r, chronic DAYNA HASSAN T 12/18 [facility] Outpatient Encounter [id number] 3 VERONIQUE,JOSE EEN 12/18 [facility] Outpatient Encounter [id number] [id number] 12/19 [facility] Outpatient Encounter [id number] [id number] [facility] K 12/20 [facility] HC PRO PHONE CALL 5-10 MIN [id number] [id number] Diagnos is: ICD-10- CM E11.8 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 [facility] K 12/20 [facility] OFFICE O/P EST MOD 30 MIN 94831-3.65 [id number] Diagnos is: ICD-10- CM F43.12 Post-tr aumatic stress disorde r, chronic Myrtle MEDLEY R 12/20 [facility] QNHP OL DIG ASSMT&MGMT 5-10 [id number] [id number] Diagnos is: ICD-10- CM Z79.4 senior living (curren t) use of insulin KAYCEE BEASLEY 12/21 [facility] Outpatient Encounter [id number] [id number] 12/21 [facility] Outpatient Encounter [id number] [id number] VERONIQUE,EIL EEN 12/25 [facility] EMERGENCY DEPT VISIT LOW MDM 73033-1.65 [id number] Diagnos is: ICD-10- CM S80.11X A Contusi on of right lower leg, initial encount er SAGAR MCLAIN 12/31 [facility] Outpatient Encounter [id number] [id number] KATHRYN KINNEY 12/31 [facility] Outpatient Encounter [id number] [id number] 3 SAGAR MCLAIN 12/31 [facility] MTMS BY PHARM EST 15 MIN 71922-8.65 [id number] Diagnos is: ICD-10- CM 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 Outpatient Encounter [id number] [id number] 01/11 [facility] OFFICE O/P EST MOD 30 MIN [id number] [id number] Diagnos is: ICD-10- CM R55 Syncope and collaps e PACE01/14 [facility] Outpatient Encounter [id number] [id number] 01/14 [facility] Outpatient Encounter [id number] [id number] 3 01/21 [facility] [facility] 45475-3.65 [id number] CARLO SPARROW 01/21 [facility] Outpatient Encounter 70306-2.65 [id number] 9 01/23 [facility] Outpatient Encounter 20642-0.65 [id number] 4 01/23 [facility] PSYTX W PT 60 MINUTES 98909-7.65 [id number] 605 Diagnos is: ICD-10- CM F43.12 Post-tr aumatic stress disorde r, chronic DAYNA HASSAN T 01/29 [facility] Outpatient Encounter 71019-4.65 [id number] 4 01/29 [facility] Outpatient Encounter 46987-0.65 [id number] 6 02/01 [facility] OFFICE O/P EST HI 40 MIN 93286-1.65 [id number] 505 Diagnos is: ICD-10- CM F43.12 Post-tr aumatic stress disorde r, chronic TOCMyrtle GREGORIO ATTHEW R 02/01 [facility] Outpatient Encounter [id number] [id number] 1 02/01 [facility] Outpatient Encounter 86497-3.65 [id number] 02/04 [facility] IOLOGICAL THERAPY 21082-3.65 [id number] Diagnos is: ICD-10- CM F44.5 Convers ion disorde r with seizure s or convuls ions ROCIO AVILA 02/07 [facility] Outpatient Encounter 27567-8.65 [id number] JOSE PIPER 02/11 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 ISABEL KO 02/14 [facility] OFFICE O/P EST MOD 30 MIN 98043-6.65 [id number] Diagnos is: ICD-10- CM K75.81 Nonalco holic steatoh epatiti s (QUIJANO) CHUCHO SANCHEZ 02/22 [facility] Outpatient Encounter [id number] [id number] 02/23 [facility] OFFICE O/P EST MOD 30 MIN 09405-0.65 [id number] 7 Diagnos is: ICD-10- CM R06.00 Dyspnea , unspeci fied DEMIDENKO, MYA 02/25 [facility] PSYTX W PT 30 MINUTES 67467-7.65 [id number] 048 Diagnos is: ICD-10- CM F43.12 Post-tr aumatic stress disorde r, chronic DAYNA HASSAN 03/05 [facility] Outpatient Encounter 47073-5.65 [id number] SARIAH WELCH 03/12 [facility] Outpatient Encounter 38341-7.65 [id number] 4 ALICJA WILKES 03/20 [facility] PSYTX W PT 60 MINUTES 25743-4.65 [id number] 521 Diagnos is: ICD-10- CM F43.12 Post-tr aumatic stress disorde r, chronic MO,DANYA Tee T 03/26 [facility] Outpatient Encounter [id number] [id number] 04/02 [facility] Outpatient Encounter 40263-7.65 [id number] 8 04/02 [facility] OFF/OP EST MAY X REQ PHY/QHP 57665-2.65 [id number] 5 Diagnos is: ICD-10- CM N52.9 Male erectil e dysfunc tion, unspeci fied ROSARIO SANCHEZ MA 04/02 [facility] Outpatient Encounter 25979-6.65 [id number] 0 JOSE PIPER 04/05 [facility] OFFICE O/P EST SF 10 MIN 47115-3.65 [id number] 1 Diagnos is: ICD-10- CM Z01.818 Encount er for other preproc edural examina tion KAROL WOLFF 04/08 [facility] MTMS BY PHARM EST 15 MIN 90170-0.65 [id number] Diagnos is: ICD-10- CM 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 Outpatient Encounter [id number] [id number] 7 Yumi MARCUS 04/15 [facility] HC PRO PHONE CALL 5-10 MIN 78536-5.65 [id number] 4 Diagnos is: ICD-10- CM N52.9 Male erectil e dysfunc tion, unspeci fied JOSE G MCMULLEN 04/18 [facility] OFFICE O/P EST MOD 30 MIN 78105-5.65 [id number] 6 Diagnos is: ICD-10- CM Z01.818 Encount er for other preproc edural examina ANJALI Fischer 04/19 [facility] SELF-MGMT EDUC & TRAIN 1 PT 19698-1.65 [id number] Diagnos is: ICD-10- CM E29.1 Testicu lar hypofun ctPRASAD Tay 04/19 [facility] Outpatient Encounter 57712-7.65 [id number] 5 04/19 [facility] Outpatient Encounter 64946-0.65 [id number] 2 Diagnos is: ICD-10- CM N52.9 Male erectil e dysfunc tion, unspeci fied PATRICIO GENAO P 04/19 [facility] Outpatient Encounter 13559-4.65 [id number] PATRICIO GENAO NE P 04/19 [facility] INSERT SELF-CONTD PROSTHESIS 58534-7.65 [id number] 7 JUNIORMEET AIDAN Eason 04/19 [facility] Outpatient Encounter 61934-0.65 [id number] 7 JUNIORMEET AIDAN E 04/19 [facility] Outpatient Encounter 99406-7.65 [id number] 9 ZIGGYROCIOREBA REYJEROME M 04/19 [facility] Outpatient Encounter 78140-4.65 [id number] 6 Yon MORENO 04/19 [facility] Outpatient Encounter 40065-8.65 [id number] MARIAMA DOYLE 04/19 [facility] Inpatient Encounter 09678-8.65 [id number] Admit Reason: ED S/P IPP QUENTIN PINA 04/19 [facility] Inpatient Encounter 17998-8.65 [id number] 7 DREW WINKLER 04/19 [facility] Inpatient Encounter 32019-7.65 [id number] 2 DREW WINKLER 04/19 [facility] Inpatient Encounter 70259-7.65 [id number] 2 DREW WINKLER 04/19 [facility] Inpatient Encounter [id number] [id number] 4 DREW WINKLER 04/19 [facility] Inpatient Encounter 38236-8.65 [id number] 3 ASHOK GONZALEZ RALDINE 04/19 [facility] Inpatient Encounter 69716-9.65 [id number] 4 ASHOK GONZALEZ RALDINE 04/20 [facility] Inpatient Encounter 07312-0.65 [id number] 5 ASHOK GONZALEZ RALDINE 04/20 [facility] Inpatient Encounter 90966-8.65 [id number] 0 AYLIN KENDRICK 04/20 [facility] Inpatient Encounter 37812-9.65 [id number] 7 AYLIN KENDRICK 04/20 [facility] Inpatient Encounter 96029-1.65 [id number] 0 AYLIN KENDRICK 04/20 [facility] 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 CONTROLLER DATA LIBRARIAN INDIVIDU 36117-9.65 [id number] Diagnos is: ICD-10- CM Z71.81 Spiritu al or religio us child guidance counselor CHELSEA Fonseca 04/20 [facility] Inpatient Encounter 29196-6.65 [id number] 9 BIRGIT GURROLA 04/20 [facility] Inpatient Encounter 46588-8.65 [id number] 0 AYLIN KENDRICK S 04/20 [facility] Inpatient Encounter 17815-8.65 [id number] 0 AYLIN KENDRICK S 04/20 [facility] Inpatient Encounter 55824-9.65 [id number] 9 AYLIN KENDRICK S 04/20 [facility] Outpatient Encounter 40489-5.65 [id number] 1 04/22 [facility] Outpatient Encounter 12351-4.65 [id number] 2 ANA MALCOLMAT S 04/23 [facility] OFF/OP EST NOVEMBER X REQ PHY/QHP 09848-2.65 [id number] 794 Diagnos is: ICD-10- CM E29.1 Testicu lar hypofun ction VERONIQUE,EIL EEN 04/23 [facility] Outpatient Encounter [id number] [id number] VERONIQUE,EIL EEN 04/24 [facility] MTMS BY PHARM ADDL 15 MIN 06501-9.65 [id number] Diagnos is: ICD-10- CM Z79.899 Other skilled nursing (curren t) drug therapy FANY MACHUCA D 04/25 [facility] Outpatient Encounter 97768-4.65 [id number] 2 04/25 [facility] [place] [facility] [place] [place] 8[address]-2.65 [id number] Diagnos is: ICD-10- CM F44.5 Convers ion disorde r with seizure s or convuls ions VAN ROCIO GARCES ERESA 04/29 [facility] PSYTX W PT 60 MINUTES 93023-9.65 [id number] 904 Diagnos is: ICD-10- CM F43.12 Post-tr aumatic stress disorde r, chronic DAYNA HASSAN D T 04/30 [facility] OFFICE O/P EST SF 10 MIN 04151-4.65 [id number] Diagnos is: ICD-10- CM N52.9 Male erectil e dysfunc tion, unspeci fied PATRICIO GENAO P 05/03 [facility] Outpatient Encounter [id number] [id number] JAS MARIEE 05/21 [facility] OFFICE O/P EST MOD 30 MIN 44085-0.65 [id number] 352 Diagnos is: ICD-10- CM F43.12 Post-tr aumatic stress disorde r, chronic SAGARWALARACHEL 05/21 [facility] Outpatient Encounter 24045-0.65 [id number] 2 05/22 [facility] Outpatient Encounter 54224-1.65 [id number] 0 05/29 [facility] Outpatient Encounter 55008-5.65 [id number] Diagnos is: ICD-10- CM E11.8 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 Josue TORRES 05/30 [facility] OFFICE O/P NEW SF 15 MIN 19887-7.65 [id number] Diagnos is: ICD-10- CM N52.9 Male erectil e dysfunc tion, unspeci fied PATRICIO GENAO NE P 05/31 [facility] Outpatient Encounter 97537-7.65 [id number] 06/01 [facility] OFFICE O/P EST MOD 30 MIN 90082-2.65 [id number] Diagnos is: ICD-10- CM F52.21 Male erectil e disorde r WILLIAM DUFF IS J 06/14 [facility] PSYTX W PT 60 MINUTES 61937-8.65 [id number] 062 Diagnos is: ICD-10- CM F43.12 Post-tr aumatic stress disorde r, DAYNA Carty 06/25 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 ISABEL KO 07/08 [facility] OFF[facility] O/P EST MOD 30 MIN 17131-3.65 [id number] 516 Diagnos is: ICD-10- CM E66.9 Obesity , unspeci fied KAYCEE LINDSAY T 07/18 [facility] ACUPUNCT W/O STIMUL 15 MIN 02352-5.65 [id number] Diagnos is: ICD-10- CM F43.12 Post-tr aumatic stress disorde r, chronic CHRISTELLE RIBERA L 07/22 [facility] OFFICE O/P EST SF 10 MIN 89193-9.65 [id number] 5 Diagnos is: ICD-10- CM N48.1 Balanit is PATRICIO GENAO P 08/02 [facility] OFFICE O/P EST MOD 30 MIN 90325-4.65 [id number] 057 Diagnos is: ICD-10- CM F43.12 Post-tr aumatic stress disorde r, chronic RACHEL LEACH 08/08 [facility] OFFICE O/P NEW MOD 45 MIN 65624-6.65 [id number] Diagnos is: ICD-10- CM E11.9 Type 2 diabete s mellitu s without complic ations BRET GRAHAM R 08/09 [facility] PSYTX W PT 60 MINUTES 12856-0.65 [id number] Diagnos is: ICD-10- CM F43.12 Post-tr aumatic stress disorde r, chronic DAYNA HASSAN T 08/13 [facility] Outpatient Encounter [id number] [id number] DAYNA HASSAN T 08/13 [facility] SELF CARE MNGMENT TRAINING 99226-8.65 [id number] 4 Diagnos is: ICD-10- CM R55 Syncope and collaps e LUIS CARLOS CHU J 08/27 [facility] Outpatient Encounter 44446-4.65 [id number] 4 09/02 [facility] Outpatient Encounter 65669-6.65 [id number] CHRISTELLE RIBERA 09/03 [facility] THERAPEUTI C EXERCISES 14995-6.65 [id number] Diagnos is: ICD-10- CM M54.59 Other low back pain JAH MALAGON J 09/11 [facility] Outpatient Encounter 82595-6.65 [id number] 09/12 [facility] OFFICE O/P EST MOD 30 MIN 14356-7.65 [id number] Diagnos is: ICD-10- CM R06.02 Shortne ss of breath MYA POP 09/12 [facility] Outpatient Encounter 33074-4.65 [id number] 09/18 [facility] Outpatient Encounter 92887-5.65 [id number] 09/23 [facility] MTMS BY PHARM EST 15 MIN 31791-5.65 [id number] 247 Diagnos is: ICD-10- CM 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 Outpatient Encounter 87292-3.65 [id number] 2 10/07 [facility] Outpatient Encounter 89064-3.65 [id number] 10/08 [facility] PSYTX W PT W E/M 30 MIN 73767-4.65 [id number] Diagnos is: ICD-10- CM F43.12 Post-tr aumatic stress disorde r, chronic RACHEL LEACH 10/10 [facility] MTMS BY PHARM EST 15 MIN 72840-8.65 [id number] Diagnos is: ICD-10- CM Z79.899 Other skilled nursing (curren t) drug therapy ISABEL KO 10/24 [facility] OFFICE O/P EST MOD 30 MIN 89567-8.65 [id number] Diagnos is: ICD-10- CM F10.188 Alcohol abuse with other alcohol -induce d disorde r CHUCHO SANCHEZ 10/25 [facility] OFFICE O/P EST LOW 20 MIN 52019-1.65 [id number] 4 Diagnos is: ICD-10- CM N52.9 Male erectil e dysfunc tion, unspeci fied WILLIAM DUFF IS J 11/01 [facility] Outpatient Encounter 86910-5.65 [id number] 9 11/08 [facility] Outpatient Encounter [id number] [id number] 6 11/08 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 Social History Type Response Date Comment Source Tobacco smoking status IDIS VA-TOBACCO NEVER USED CIGARETTES 07/18/2024 [facility] History of tobacco use VA-TOBACCO USE SOME DAYS OTHER TYPE 07/18/2024 [facility] History of tobacco use VA-TOBACCO USER EVERY DAY 07/04/2023 [facility] History of tobacco use VA-TOBACCO FORMER USER 07/28/2022 [facility] History of tobacco use VA-TOBACCO USER SOME DAYS 07/13/2021 [facility] History of tobacco use VA-TOBACCO USER SOME DAYS 05/20/2020 [facility] History of tobacco use VA-TOBACCO FORMER USER 06/26/2018 [facility] History of tobacco use QUIT TOBACCO >7 YEARS AGO 03/02/2017 [facility] History of tobacco use CURRENT TOBACCO USER 05/25/2016 [facility] History of tobacco use QUIT TOBACCO >7 YEARS AGO 06/23/2015 [facility] History of tobacco use CURRENT TOBACCO USER 09/12/2014 [facility] History of tobacco use QUIT TOBACCO >7 YEARS AGO 06/25/2013 [facility] History of tobacco use LIFETIME NON-USER OF TOBACCO 05/04/2010 [facility] History of tobacco use CURRENT TOBACCO USER 07/30/2009 [facility] History of tobacco use TOBACCO OFFERRED PT MEDS (PROVIDER) 03/20/2008 [facility] History of tobacco use QUIT TOBACCO >7 YEARS AGO 03/06/2007 [facility] History of tobacco use CURRENT TOBACCO USER 05/09/2006 [facility] History of tobacco use CURRENT TOBACCO USER 08/27/2004 [facility] History of tobacco use CURRENT NON-TOBACCO USER-HX OF USE 05/26/2000 stop smoking 10yrs ago,started smoking at 14yrs,smoked 2packs a day [facility] History of tobacco use CURRENT NON-TOBACCO USER-HX OF USE 03/07/2000 [facility] This section is an empty social history section. [facility] Plan of Care List of future care activities from Department [facility] Affairs facilities. Additional future care activities may be listed in the Assessment and Plan section. Date/Time Care Activity Care Activity Detail Facili ty 11/29/2024 AMBULATORY - REHAB MEDICINE AMBULATORY - REHAB MEDICINE [facility] Advance Directives List of completed, amended, or rescinded Advance Directives on record at Department [facility] facilities. An actual copy of the Directive is not included. Date Advance Directive Provider Source 10/21/2022 Section Date Range: From patient's date of to the date document was created. This section includes a list of a patient's completed, amended, or rescinded [place] Advance Directives, but an actual copy is not included. DateAdvance DirectivesProviderSource Oct 21, 2022 FRANKLIN KO [facility] Sep 23, 2004 [facility] May 24, 2004 ADVANCE DIRECTIVE MITCH ZEE [facility] May 24, 2000 ADVANCE DIRECTIVE MICHELE CENTENO [facility] Nov 11, 1996 ADVANCE DIRECTIVE MAGGIE DRAKE [facility] December 08, 1995 ADVANCE DIRECTIVE [place] [facility] 09/23/2004 [facility] 05/24/2004 ADVANCE DIRECTIVE MITCH ZEEU IS [facility] 05/24/2000 ADVANCE DIRECTIVE MICHELE CENTENO [facility] 11/11/1996 ADVANCE DIRECTIVE MAGGIE DRAKE [facility] 12/08/1995 ADVANCE DIRECTIVE NATANAELKI [facility]
--- OUTSIDE RECORDS SUMMARY | 2024-11-30 15:26 | XMS_ITS | Encounter Summary ---
Author Name [facility] [place] [facility] [place] Address [address] [place] [address] Care Team Providers Care Machine Room Operator Name Role Phone YONATHAN LINDSAY Primary Care Provider OMEGA Bethea Unavailable Unavailable Selected Encounter This section includes the information on record at [place] for the Encounter. Date/Time Encounter Type Encounter Description Reason Provider Source Feb 02, 2024 02:30 PM OFFICE O/P EST HI [facility] - IND ICD-10-CM F43.12 Post-traumatic stress disorder, chronic [place] IHYumi Encounter Template Text not used by [place] Assessments - Encounter Diagnoses This section includes the primary and secondary diagnoses documented for the Encounter. Date/Time Primary/Secondary Diagnosis Diagnosis Name Provider Source Feb 02, 2024 05:06 PM PRIMARY Post-traumatic stress disorder, chronic [place] [facility] Feb 02, 2024 05:06 PM SECONDARY Adjustment disorder with mixed anxiety and depressed mood [place] [facility] Feb 02, 2024 05:06 PM SECONDARY Conversion disorder with seizures or convulsions [place] [facility] Plan of Treatment: Future Appointments [...] 20 appointments. The data comes from all [place] treatment facilities. Appointment Date/Time Appointment Type Appointme nt Facility Name Feb 08, 2024 01:30 PM AMBULATORY - NONE [facility] Feb 13, 2024 10:00 AM AMBULATORY - NONE [facility] Feb 15, 2024 10:00 AM AMBULATORY - MEDICINE [facility] Feb 19, 2024 11:00 AM AM[facility]ORY - NONE [facility] Feb 23, 2024 10:30 AM AMBULATORY - MEDICINE [facility] Feb 26, 2024 03:00 PM AMBULATORY - MEDICINE [facility] Mar 05, 2024 03:00 PM AMBULATORY - PSYCHIATRY [facility] Mar 08, 2024 01:00 PM AMBULATORY - PSYCHIATRY [facility] Mar 26, 2024 03:00 PM AMBULATORY - PSYCHIATRY [facility] Apr 03, 2024 11:00 AM AMBULATORY - MEDICINE [facility] Apr 08, 2024 02:00 PM AMBULATORY - SURGERY [facility] Apr 09, 2024 01:00 PM AMBULATORY - NONE [facility] Apr 19, 2024 10:00 AM AMBULATORY - NONE [facility] Apr 23, 2024 03:00 PM AMBULATORY - MEDICINE [facility] Apr 29, 2024 01:00 PM AMBULATORY - NONE [facility] Apr 30, 2024 03:00 PM AMBULATORY - PSYCHIATRY [facility] May 03, 2024 10:30 AM AMBULATORY - SURGERY [facility] May 21, 2024 01:00 PM AMBULATORY - PSYCHIATRY [facility] May 31, 2024 10:30 AM AMBULATORY - SURGERY [facility] Jun 05, 2024 09:30 AM AMBULATORY - NONE [facility] Active, Pending, and Scheduled Orders This section includes a listing of several types of active, pending, and scheduled orders, including clinic medications orders, diagnostic test orders, procedure orders and consult orders; where the start date of the order is 45 days before the date of the Encounter or 45 days after the date of theEncounter. The data comes from all [place] treatment facilities. Test Date/Time Test Type Test Details Facility Name December 19, 2023 12:00 AM Laboratory - Chemistry Order ANTI-MITOCHONDRIAL AB (STL) GOLD/RED SST SERUM SP [facility] December 19, 2023 12:00 AM Laboratory - Chemistry Order ALPHA-1 ANTITRYPSIN (STL) GREEN LI/HEP BLD/PLAS PLASMA SP [facility] December 19, 2023 12:00 AM Laboratory - Chemistry Order ACTIN (SMOOTHMUSCLE) ANTIBODY IGG GOLD/RED SST SERUM SP [facility] December 19, 2023 12:00 AM Laboratory - Chemistry Order CERULOPLASMIN (STL-PB) GOLD/RED SST SERUM SP [facility] Lab Results: +/- 30 days of the encounter This section includes the Chemistry and Hematology Lab Results on record with [place] for the patient. Radiology Reports and Pathology Reports are provided separately, in subsequent sections. Lab Results This section contains the Chemistry/Hematology Results that were resulted 30 days before or 30 daysafter the date of the Encounter. Date/Time Source Result Type Result - Unit Interpretation Reference Range Specimen Type Comment Feb 23, 2024 11:19 AM [facility] CONJ. BILIRUBIN PLASMA Specimen Type: PLASMA Comment: LDL Unable to be calculated LDL calculation invalid when Triglyceride exceeds 250 mg/dl Ordering Provider: NIKA SANCHEZ Report Released Date/Time: Feb 23, 2024 10:51 AM Reporting Lab: [facility] [address] [facility] [address] Performing Lab: [facility] [address] [facility] [address] CONJ. BILIRUBIN 0.2 mg/dL 0-0.5 Feb 23, 2024 11:19 AM [facility] PT/INR NEW (STL-MA) PLASMA Specimen Type: PLAS MA No comment entered. Ordering Provider: NIKA SANCHEZ Report Released Date/Time: Feb 23, 2024 10:51 AM Reporting Lab: [address] [address] Performing Lab: [address] [address] PROTIME 12.2 s 9.4-12.5 INR VALUE 1.1 {INR} Feb 23, 2024 11:19 AM [facility] LIPID PANEL (STL) PLASMA Specimen Type: PLASM A Comment: LDL Unable to be calculated LDL calculation invalid when Triglyceride exceeds 250 mg/dl Ordering Provider: NIKA SANCHEZ Report Released Date/Time: Feb 23, 2024 10:51 AM Reporting Lab: [address] [address] Performing Lab: [address] [address] CHOLESTEROL 153 mg/dL 0-200 TRIGLYCERIDE 373 mg/dL H 0-150 DIRECT LDL 64 mg/dL L >100 CALCULATED LDL comment mg/dL HDL(New) 37 mg/dL L >40 Feb 23, 2024 11:19 AM [facility] COMPREHENSIVE METABOLIC PANEL PLASMA Specimen Type: PLASMA Comment: LDL Unable to be calculated LDL calculation invalid when Triglyceride exceeds 250 mg/dl Ordering Provider: NIKA SANCHEZ Report Released Date/Time: Feb 23, 2024 10:51 AM Reporting Lab: [address] [address] Performing Lab: [address] [address] CREATININE 0.85 mg/dL 0.7-1.3 UREA NITROGEN 14.4 [...] 102.6 >60 Feb 23, 2024 11:[address] [facility] CBC BLOOD Specimen Type: BLOOD No comment entered. Ordering Provider: NIKA SANCHEZ Report Released Date/Time: Feb 23, 2024 10:51 AM Reporting Lab: [facility] [address] [facility] [address] Performing Lab: [facility] [address] [facility] [address] WBC 7.1 10*3/uL 3.6-11.2 RBC 5.10 10*6/uL [...] took place. Date/Time Current Smoking Status Comment Irena jean-baptiste Jul 04, 2023 01:09 PM VA-TOBACCO USER EVERY DAY [facility] Tobacco Use History This section includes a history of the smoking, or tobacco-related health factors, that were collected on or before the date of the Encounter. The data comes from the [place] facility where the Encounter took place. 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 [facility] Jul 04, 2023 01:09 PM VA-TOBACCO USE MED NO [facility] Jul 04, 2023 01:09 PM VA-TOBACCO USE WI 30 MIN OF WAKEUP [facility] Jul 04, 2023 01:09 PM VA-TOBACCO USER EVERY DAY [facility] Jul 28, 2022 01:00 PM VA-TOBACCO FORMER USER [facility] Jul 28, 2022 01:00 PM VA-TOBACCO QUIT 15 YRS OR MORE [facility] Jul 13, 2021 01:00 PM VA-TOBACCO DOESNT USE WI 30 MIN WAKEUP [facility] Jul 13, 2021 01:00 PM VA-TOBACCO USE 30 YEARS OR MORE [facility] Jul 13, 2021 01:00 PM VA-TOBACCO USE ADVICE [facility] Jul 13, 2021 01:00 PM VA-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 USE 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 [facility] Jul 13, 2021 01:00 PM VA-TOBACCO USE MED NO [facility] Jul 13, 2021 01:00 PM VA-TOBACCO USER SOME DAYS [facility] May 20, 2020 03:30 PM VA-TOBACCO DOESNT USE WI 30 MIN WAKEUP [facility] May 20, 2020 03:30 PM VA-TOBACCO USE > 1 5 LESS THAN 30 YEARS [facility] May 20, 2020 03:30 PM VA-TOBACCO USE ADVICE [facility] May 20, 2020 03:30 PM VA-TOBACCO USE 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 [facility] May 20, 2020 03:30 PM VA-TOBACCO USE MED NO [facility] May 20, 2020 03:30 PM VA-TOBACCO USER SOME DAYS [facility] Jun 26, 2018 11:30 AM VA-TOBACCO FORMER USER [facility] Jun 26, 2018 11:30 AM VA-TOBACCO QUIT 15 YRS OR MORE [facility] Mar 02, 2017 07:35 AM QUIT TOBACCO >7 YEARS AGO [facility] May 25, 2016 05:48 AM CURRENT TOBACCO USER [facility] May 25, 2016 05:48 AM TOBACCO MEDS OFFER ED BUT DECLINED [facility] Jun 23, 2015 02:29 PM QUIT TOBACCO >7 YEARS AGO [facility] Sep 12, 2014 06:15 AM CURRENT TOBACCO USER [facility] Sep 12, 2014 06:15 AM QUIT TOBACCO >7 YEARS AGO [facility] Sep 12, 2014 06:15 AM TOBACCO MEDS OFFER ED BUT DECLINED [facility] Jun 25, 2013 02:47 PM QUIT TOBACCO >7 YEARS AGO [facility] May 04, 2010 12:36 PM LIFETIME NON-USER OF TOBACCO [facility] Jul 30, 2009 11:12 AM CURRENT TOBACCO USER [facility] Mar 20, 2008 01:00 PM CURRENT TOBACCO USER [facility] Mar 20, 2008 01:[address] OP SMOKING CLINIC [facility] Mar 20, 2008 01:00 PM TOBACCO OFFERRED P T MEDS (PROVIDER) [facility] Mar 06, 2007 10:38 AM QUIT TOBACCO >7 YEARS AGO [facility] May 09, 2006 09:29 AM CURRENT TOBACCO USER [facility] Aug 27, 2004 10:41 AM CURRENT TOBACCO USER [facility] Aug 27, 2004 10:41 AM SMOKER <10 [facility] Advance Directives: All historical and current Section [...] Provider Source Oct 21, 2022 FRANKLIN KO [facility] Sep 23, 2004 ADVANCE DIRECTIVE CJ RUDOLPH [facility] May 24, 2004 ADVANCE DIRECTIVE MITCH ZEE IS [facility] May 24, 2000 ADVANCE DIRECTIVE MICHELE CENTENO IS [facility] Nov 11, 1996 ADVANCE DIRECTIVE MAGGIE DRAKE [facility] December 08, 1995 ADVANCE DIRECTIVE NATANAELKI JAUREGUI [facility] Radiology Reports: +/- 30 days of [...] the Encounter. The data comes from all [place] treatment facilities. Date/Time Radiology Report Provider Source Jan 15, 2024 12:42 PM US ABDOMEN LIMITED W/BLOOD FLOW DOPPLER: BETTY HAAS [id number] [phone] M Exm Date: JAN 15, 2024@12:42 Req Phys: KOSTA SOTO Pat Loc: [facility]-GI CONSULT (Req'g Loc) Img Loc: [facility]-ULTRASOUND Service: Unknown [facility] [address] [place] [address] (Case [id number] COMPLETE) US ABDOMEN LTD, SINGLE ORG OR CHRISTIN(US Detailed) CPT:10805 Reason for Study: elevated LFTs (Case [id number] COMPLETE) US BLOOD FLOW ABD/RENAL (LTD) (US Detailed) CPT:86674 Clinical History: Organ to Image: Liver Reason for exam: elevated LFTs Report Status: Verified Date Reported: JAN 15, 2024 Date Verified: JAN 15, 2024 Shroud Line Tier E-Sig:/ES/DUNIA LUNA Report: CASE #: [id number], [id number] EXAMINATION: Limited sonogram of the right upper [...] Report dictated by Lucien Ruiz (vice president of business development) I, Dunia Luna, have reviewed the images and report and concur with these findings. Primary Interpreting Staff: DUNIA LUNA MD (Shroud Line Tier) Primary Interpreting Resident: LUCIEN RUIZ MD /DUNIA MARTINES [facility] Encounter Notes: All associated encounter notes This section contains the clinical notes associated to the Encounter. Date/Time Encounter Note(s) Provider Source Feb 02, 2024 02:36 PM PSYCHIATRY NOTE: LOCAL TITLE: PSYCHIATRY [facility] STANDARD TITLE: PSYCHIATRY NOTE DATE OF NOTE: FEB 02, 2024@14:36 ENTRY DATE: FEB 02, 2024@14:37:27 AUTHOR: KENYA MEDLEY COSIGNER: URGENCY: STATUS: COMPLETED [facility] - MEDICATION MANAGEMENT Name..................ANKUSH PIKEBETTY LINDA Age...................53 Sex...................MALE SSN...................[id number] Service Connection.... Service Connected: 100% Rated Disabilities: FIBROMYALGIA (40% SC) TINNITUS (10% SC) POST-TRAUMATIC STRESS DISORDER (70% SC) SEIZURE DISORDER (80% SC) ASTHMA,BRONCHIAL (30% SC) CHRONIC FATIGUE SYNDROME (100% SC) HIATAL HERNIA (10% SC) PROBLEM LIST: 1) Abnormal results of liver function studies 2) Diverticulitis 3) Erectile dysfunction 4) Obesity 5) Chest pain 6) Sensory-neural hearing loss 7) Back pain (SNOMED CT 391433394) 8) Benign hypertension (SNOMED CT 76807029) 9) Convulsion 10) Male hypogonadism 11) Conversion [...] Fibromyalgia 29) Exposure to potentially hazardous substance OUTPATIENT MEDICATIONS: Active Outpatient Medications (including Supplies): Active [...] 50MCG (D3-2,000UNIT) TAB TAKE TWO TABLETS ACTIVE (S) BY MOUTH ONCE A DAY FOR VITAMIN D DEFICIENCY. 5) CPD-NALTREXONE 3MG (LOW DOSE) CAP TAKE 1 CAPSULE BY ACTIVE MOUTH ONCE A DAY 6) CYANOCOBALAMIN 100MCG TAB TAKE ONE TABLET BY MOUTH ACTIVE (S) ONCE A DAY FOR B12 SUPPLEMENTATION 7) [...] STOOL/DIARRHEA. 11) DRESSING,POLYSKIN II 2 X 2.75IN JEFFERY#[id number] USE/APPLY ACTIVE DRESSING(S) TO AFFECTED AREA(S) DIRECTED FOR USE WITH GLUCOSE SENSOR 12) EMPAGLIFLOZIN 25MG TAB TAKE ONE TABLET BY MOUTH ONCE ACTIVE (S) A DAY 13) FISH OIL 1000MG (500MG DHA/EPA) CAP TAKE TWO CAPSULES ACTIVE BY MOUTH TWICE A DAY TO LOWER TRIGLYCERIDES 14) GLIPIZIDE 5MG TAB TAKE ONE TABLET BY MOUTH TWO TIMES ACTIVE (S) A DAY BEFORE MEALS TAKE 30 MINUTES BEFORE EATING. 15) GLUCOSE SENSOR FREESTYLE BREN 3 USE SENSOR EVERY ACTIVE 2 WEEKS FOR BLOOD SUGAR MONITORING CHANGE SENSOR/SITE EVERY 14 DAYS. TO REPLACE SENSOR FOR ANY REASON OR FOR TECHNICAL HELP PLEASE CALL [employer] HELP DESK: -SPECIFIC PHONE NUMBER: ([phone]). 16) LIDOCAINE 2.5/PRILOCAINE 2.5% CREAM APPLY LIGHTLY TO ACTIVE AFFECTED AREA(S) TWICE DAILY NEEDED 17) LIDOCAINE 5% PATCH APPLY 1 PATCH TO SKIN SITE NIGHTLY ACTIVE NEEDED FOR PAIN. MAY USE 1-3 PATCHES. PATCHES MAY BE CUT TO FIT ONTO FEET. APPLY PATCH AND PRESS FIRMLY FOR 10-15 SECONDS. KEEP ON FOR 12 HOURS THEN REMOVE PATCH FOR 12 HOURS. 18) METFORMIN HCL 500MG 24HR SA TAB TAKE FOUR TABLETS BY ACTIVE (S) MOUTH ONCE A DAY FOR BLOOD SUGAR CONTROL. TAKE WITH FOOD. AVOID ALCOHOL. DISCONTINUE BEFORE GETTING XRAY DYE. 19) NYSTATIN 328669 UNT/GM CREAM APPLY LIBERALLY TO ACTIVE AFFECTED AREA(S) THREE TIMES A DAY FOR FUNGAL SKIN INFECTION - TOPICAL USE ONLY. 20) POLYETHYLENE GLYCOL 3350 ORAL PWDR MIX AND DRINK 1 ACTIVE CAPFUL BY MOUTH ONCE A DAY NEEDED FOR CONSTIPATION (MEASURE WITH CAP AND MIX IN 8 OZ OF WATER) 21) PRAZOSIN HCL 2MG CAP TAKE THREE CAPSULES BY MOUTH AT ACTIVE BEDTIME FOR NIGHTMARES MAY CAUSE DIZZINESS OR DROWSINESS. 22) PREGABALIN 100MG ORAL CAP TAKE TWO CAPSULES BY MOUTH ACTIVE EVERY MORNING AND TAKE THREE CAPSULES EVERY EVENING FOR FIBROMYALGIA *MAY CAUSE DROWSINESS* 23) SEMAGLUTIDE 2MG/0.75ML INJ PEN 3ML INJECT 2MG UNDER ACTIVE THE SKIN EVERY WEEK FOR DIABETES 24) SODIUM CHLORIDE 0.65% SOLN NASAL SPRAY USE 1 SPRAY ACTIVE INTO NOSTRIL(S) EVERY 4 HOURS NEEDED FOR NASAL CONGESTION 25) TRAZODONE HCL 100MG TAB TAKE TWO TABLETS BY MOUTH AT ACTIVE (S) BEDTIME FOR DEPRESSION Active Non-VA Medications Status 1) Non-VA TRIAMCINOLONE ACETONIDE 0.025% CREAM SPARINGLY ACTIVE TO AFFECTED AREA(S) TWICE A DAY 26 Total Medications ALLERGIES: NIACIN, SIMVASTATIN, COREG 25MG TABLET, PRAVASTATIN, SHRIMP, ATORVASTATIN ROSUVASTATIN, LOVASTATIN, PITAVASTATIN VITAL SIGNS: Height: 72 in [182.9 cm] (01/15/2024 11:21) Weight: 278 lb [126.10 kg] (01/15/2024 11:21) BMI: 37.8 Temperature: 97.9 F [36.6 C] (01/15/2024 11:21) Blood Pressure: 130/75 (01/15/2024 11:21) Pulse: 70 (01/15/2024 11:21) Respirations: 20 (01/15/2024 11:21) Patient Weight History - Last Four 1. 278.0 lbs. / 126.1 kg. on JAN 15, 2024@11:21:43 2. 278.1 lbs. / 126.1 kg. on DECEMBER 19, 2023@13:08:57 3. 276.2 lbs. / 125.3 kg. on DECEMBER 14, 2023@11:01:46 4. 272.1 lbs. / 123.4 kg. on NOV 14, 2023@12:55:29 PAST PSYCHIATRIC MEDICATION TRIALS: pregabalin, current, helpful trazodone, current, helpful prazosin, current, helpful paroxetine, puts my head all weird. Horrible, violent night terrors. lorazepam, chronic, increasing tolerance/addiction, taken off risperidone, doesnt remember buspirone, didn't like the way it made me feel, jittery all the time sertraline, didn't tolerate zolpidem, amnesia, sleep walking hydroxyzine, doesn't remember citalopram, doesn't remember clonazepam lamotrigine, doesnt remember nefazodone phenytoin, NOT EPILEPSY Ketaminefor painbelieves this made him suicidal PAST PSYCHIATRIC HISTORY: * Prior hospitalizations: 8 admissions since 1998, most recent 09/13/2023 for one day * Prior suicide attempts: 3 previous attempts, 2 by OD, years ago had 9mm that did not go off, went outside and pulled trigger and it went off Has followed with Dr. Truong in psychiatry for several years Has followed with Dr. Pablo and psychology for years FAMILY HISTORY: *Noncontributory SUBSTANCE USE: * Tobacco: Chews on occasion when camping or road tripping THC gummies on occasion to sleep * EtOH: Rare * Illicit drugs: Denies SOCIAL HISTORY: * Relationship status: , lives with his and 25-year-old daughter * Work/income: Runs a [employer] * Service: 100% service-connected * Trauma: 20% service-connected for PTSD. Did not discussed during interview VA TELEHEALTH: Consent: [place] verbally consents to a clinical video telehealth follow-up appointment. Address: [address] [place] [address] [place] [address] Phone number: Survey: patient alone Lock: The virtual conference room was locked. LAST SEEN: Good He is currently stressed since a who had a $28,000 service dog recently lost the dog and they have been out searching for it. States he is not worried about the money but is worried sick for the who was admitted to the hospital the night he lost the dog due to mental health decompensation [place] denies many changes since our last visit. He states he has had no further PNES events. States he cannot tell a change in nightmares at this time and that his sleep is still somewhat poor from nightmares and pain but notes that nightmares are typically exacerbated this time of year. request to continue discussion of medications at next appointment due to needing to go search for the dog and prefers to keep medications the same. He denies SI, HI, AVH. TODAY: Not so good The reports he has been struggling with his physical limitations as well as the recurrence of psychogenic nonepileptiform seizures that became quite difficult especially around 31 January and this time the year. I've done all the meds. I've done all the therapy. [place] frustrated. He begins to have PNES during visit. His quickly attends to him. She endorses that he is breathing with a good pulse and comes around quickly. No bowel or bladder incontinence or tongue biting. Alert and oriented within approximately 1 minute after episode. Discussed medications and options. Discussed that psychotherapy is the mainstay of treatment for PNES. Per veterans he has had full neurological work-up for the seizure-like episodes and has been diagnosed with PNES with witnessed events that did not produce epileptiform activity on EEG. Discussed a small quantity of benzodiazepines to help assist him in this very trying time. Discussed that these are not to treat seizures. Discussed extreme caution if he is to take this medication and he cannot combine it with alcohol, drive, operate heavy machinery and should only take it if he is not going anywhere and plans to be sitting or ambulating with the assistance of his or others. We weighed the risks versus benefits which also included uncontrolled PNES which could predisposition to falls and head injury or other bodily injury as well. [place] and agreeable as they report his symptoms have been extremely difficult and amplified with increased anxiety. Also again discussed trialing the on a more standard of care long-term medication for his anxiety and trauma symptoms. Discussed duloxetine as it may assist with pain as well. He and his are agreeable. Denies SI, HI, AVH MENTAL STATUS EXAM: Appearance: appears stated age Behavior: cooperative, friendly Eye contact: good Speech: unremarkable rate/rhythm Psychomotor: no psychomotor agitation or retardation Mood: Not so good Affect: congruent, dysthymic thought process: linear, associations intact Thought content: denies suicidal ideation or homicidal ideation Perception: not seen reacting to internal stimuli Cognition: AOx3 Fund of knowledge: average Insight: fair Judgment: fair SAFETY RISK ASSESSMENT: Risk factors for suicide: * chronic mental illness, history of suicide attempts, history of hospitalizations Protective factors: * denial of suicidal/homicidal ideation * exhibits future planning * medication compliant * engaged in treatment * responsibility toward family History of violence: * none Acute risk of harm to self or others is low. Chronic risk of harm to self or others is elevated 2/2 above risk factors. Pt will benefit from ongoing outpatient mental health treatment. 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 Discussed risks, benefits, side effects. Discussed increased chance of falls with this medication versus the risk of having PNES and falling as well. Precautions issued. [place] and report understanding. Do not take this medication in conjunction with alcohol or opiates. After consuming, do not perform tasks that could be considered dangerous under any level of sedation or impaired coordination. Use sparingly. Continue prazosin 6 mg nightly Continue trazodone 200 mg at bedtime Follow-up 4-6 weeks or sooner if needed 12/21/2023 Continue prazosin 6 mg nightly. Can discuss increasing at the next visit Continue trazodone 200 mg at bedtime for insomnia We can further discuss the possibility of duloxetine at the next visit Follow-up 2-3 months or sooner if needed 10/18/2023 was started on naltrexone for pain/fibromyalgia by pharmacy in the interim Increase prazosin to 6 mg nightly for nightmares, precautions issued again, again instructed to sit at the side of bed for at least 30 seconds before attempting to stand and if he feels lightheaded to sit or lay back down and notify provider if this persists Continue trazodone 200 mg HS for insomnia Discuss duloxetine at next visit Encourage lab work, will renew orders Continue with psychotherapy remains on HRF Follow up 6 weeks or sooner if needed 09/19/2023 [place] is a 53-year-old male with past psychiatric history of depression, PT SD, mobility issues, PNES, and chronic suicidal ideation who was scheduled in my clinic as an initial scheduling error. He was supposed to have post hospitalization discharge follow-up scheduled with his regular psychiatrist Dr. Truong who has seen for years. Wanting to ensure appropriate evaluation of care within reasonable time of discharge, I completed the visit with the . Initially we had planned for a brief visit to check on any safety concerns and monitor his progress. Rodney through the interview he requested to change his provider to myself. I reported that I would relay the request to the team for formal change of provider request to be placed and we will go from there, but I am willing to take him on as a patient if that is his desire. continue trazodone 200 mg nightly Increase prazosin to 4 mg nightly for nightmares Consider medications for pain such as duloxetine in the future History of several mood stabilizers/antiepileptics but reports it was discovered that he had psychogenic nonepileptic form seizures. Mainstay of treatment for that is therapy. He will continue to see Dr. Pablo Has requested a change of provider from Dr. Truong to myself due to patient's personal preference. 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 He asked for this provider to relay the message and if possible be contacted by interested parties. Will tag clinic supervisors. He reports it is ok to contact him by his cell phone. TSH and free T4 ordered. with difficult weight loss, heat intolerance, anxiety. Last TSH was within normal limits in April but T4 not completed [place] on high risk flag for suicide C-SSRS completed 09/19/2023 Follow-up 1 month or sooner if needed SUPPORTIVE PSYCHOTHERAPY/PSYCHOEDUCAT ION: 30+ minutes provided during interview TIME SPENT IN ENCOUNTER (CHART REVIEW, INTERVIEW, DOCUMENTATION/ORDERS): 55+ minutes with the plus chart review and documentation/order time in addition SAFETY: is currently stable for outpatient care. Patient aware to call clinic/ED as appropriate if symptoms get worse. CONSENT: We discussed alternatives to treatment, including no treatment, as well as risks, benefits, side effects of prescribed medications. The patient understood and consented to treatment provided. Patient aware to call clinic/ED as appropriate if patient experiences side effects from medications. REMINDERS: Last F2F......................P ENDING C-SSRS.................... .... 09/19/2023 INSTRUCTIONS GIVEN TO PATIENT/FAMILY: * Report medication side effects promptly * No alcohol/illicit drug use with medication * Needs to be cautious with driving/use of machinery * Avoid night-time driving * If symptoms get worse, call clinic or Emergency Room as appropriate /es/ KENYA MEDLEY Staff Physician / Psychiatrist [facility] Signed: 02/19/2024 17:30 KENYA MEDLEY [facility]
--- OUTSIDE RECORDS SUMMARY | 2024-11-30 15:26 | XMS_ITS | Encounter Summary ---
Author Name [facility] Organization [facility] Address [address] [place] [address] Care Team Providers Care Prize Jacker Name Role Phone YONATHAN LINDSAY Primary Care Provider OMEGA Bethea Unavailable Unavailable Selected Encounter This section includes the information on record at NH for the Encounter. Date/Time Encounter Type Encounter Description Reason Provider Source Jan 01, 2024 07:02 PM Outpatient Encounter EMERGENCY DEPT JEANNE PHILIP Encounter Template Text not used by NH Plan of Treatment: Future Appointments (+ 6 months) and Future Tests (+/- 45 days) The Plan of Treatment section includes future care activities for the patient from all NH treatmentfacilities. This section includes future appointments and future orders which are active, pending or scheduled. Future Appointments This section includes appointments that were scheduled to occur 6 months from the date of the Encounter, up to a maximum of 20 appointments. The data comes from all [place] treatment facilities. Appointment Date/Time Appointment Type Appointme nt Facility Name Jan 11, 2024 10:15 AM AMBULATORY - MEDICINE [facility] Jan 15, 2024 11:15 AM AMBULATORY - MEDICINE [facility] Jan 15, 2024 01:00 PM AMBULATORY - NONE . [facility] Jan 30, 2024 10:00 AM [facility] Jan 30, 2024 03:00 PM AMBULATORY - PSYCHIATRY [facility] Feb 02, 2024 02:30 PM AMBULATORY - PSYCHIATRY [facility] Feb 08, 2024 01:30 PM AMBULATORY - NONE [facility] Feb 13, 2024 10:00 AM AMBULATORY - NONE [facility] Feb 15, 2024 10:00 AM AMBULATORY - MEDICINE [facility] Feb 19, 2024 11:00 AM AMBULATORY - NONE [facility] Feb 23, 2024 10:30 AM AMBULATORY - MEDICINE [facility] Feb 26, 2024 03:00 PM AMBULATORY - MEDICINE [facility] Mar 05, 2024 03:00 PM AMBULATORY - PSYCHIATRY [facility] Mar 08, 2024 01:00 PM AMBULATORY - PSYCHIATRY [facility] Mar 26, 2024 03:00 PM AMBULATORY - PSYCHIATRY [facility] Apr 03, 2024 11:00 AM AMBULATORY - MEDICINE [facility] Apr 08, 2024 02:00 PM AMBULATORY - SURGERY [facility] Apr 09, 2024 01:00 PM AMBULATORY - NONE [facility] Apr 19, 2024 10:00 AM AMBULATORY - NONE [facility] Apr 23, 2024 03:00 PM AMBULATORY - MEDICINE [facility] Active, Pending, and Scheduled Orders This section includes a listing of several types of active, pending, and scheduled orders, including clinic medications orders, diagnostic test orders, procedure orders and consult orders; where the start date of the order is 45 days before the date of the Encounter or 45 days after the date of theEncounter. The data comes from all [facility] facilities. Test Date/Time Test Type Test Details Facility Name Nov 28, 2023 12:00 AM Laboratory - Chemistry Order AMMONIA (STL-MA) WHITE CAP EDTA PLASMA SP [facility] December 19, 2023 12:00 AM Laboratory - Chemistry Order ALPHA-1 ANTITRYPSIN (STL) GREEN LI/HEP BLD/PLAS PLASMA SP [facility] December 19, 2023 12:00 AM Laboratory - Chemistry Order ANTI-MITOCHONDRIAL AB (STL) GOLD/RED SST SERUM SP [facility] December 19, 2023 12:00 AM Laboratory - Chemistry Order ACTIN (SMOOTHMUSCLE) ANTIBODY IGG GOLD/RED SST SERUM SP [facility] December 19, 2023 12:00 AM Laboratory - Chemistry Order CERULOPLASMIN (STL-PB) GOLD/RED SST SERUM SP [facility] Lab Results: +/- 30 days of the encounter This section includes the Chemistry and Hematology Lab Results on record with NH for the patient. Radiology Reports and Pathology Reports are provided separately, in subsequent sections. Lab Results This section contains the Chemistry/Hematology Results that were resulted 30 days before or 30 daysafter the date of the Encounter. Date/Time Source Result Type Result - Unit Interpretation Reference Range Specimen Type Comment December 14, 2023 11:58 AM [facility] B12 SERUM Specimen Type: SERUM No comment entered. Ordering Provider: SHELIA MOREIRA Report Released Date/Time: Nov 28, 2023 11:26 AM Reporting Lab: [facility] [address] [facility] [address] Performing Lab: [address] [address] B12 423 pg/mL 213-816 December 14, 2023 11:58 AM [facility] COMPREHENSIVE METABOLIC PANEL PLASMA Specimen Type: PLASMA Comment: No hemolysis noted. Ordering Provider: SHELIA MOREIRA Report Released Date/Time: Nov 28, 2023 11:26 AM Reporting Lab: [facility] [address] [facility] [address] Performing Lab: [place] [address] [facility] [address] CREATININE 0.90 mg/dL 0.7-1.3 UREA NITROGEN 12.9 [...] 100.9 >60 December 14, 2023 11:58 AM [facility] CBC BLOOD Specimen Type: BLOOD No comment entered. Ordering Provider: SHELIA MOREIRA Report Released Date/Time: Nov 28, 2023 11:26 AM Reporting Lab: [address] [address] Performing Lab: [address] [address] WBC 5.9 10*3/uL 3.6-11.2 RBC 5.18 10*6/uL [...] 0.00-0. 20 December 14, 2023 11:57 AM [facility] HGA1C BLOOD Specimen Type: BLOOD No comment entered. Ordering Provider: RAKEL TORRES Report Released Date/Time: December 14, 2023 11:26 AM Reporting Lab: [address] [place] [address] Performing Lab: [facility] [address] [facility] [address] HGA1C 6.8 H 4.0-6.0 December 14, 2023 11:57 AM [facility] VITAMIN D, 25-HYDROXY SERUM Specimen Type: SE RUM No comment entered. Ordering Provider: RAKEL TORRES Report Released Date/Time: December 14, 2023 11:35 AM Reporting Lab: [facility] [address] [facility] [address] Performing Lab: [place] [address] [facility] [address] VITAMIN D, 25-HYDROXY 44.3 ng/mL 30-96 Vital Signs: All taken on the encounter date This section contains inpatient and outpatient Vital Signs collected on the date of the Encounter. Date/Time Temperature Pulse Blood Pressure Respiratory Rate SP02 Pain Height Weight Body Mass Index Source Jan 01, 2024 07:07 PM 98.7 73 149/84 18 6 [facility] Social History: Smoking Status (Most current) and Tobacco Use (All prior to encounter date) This section includes the most current, and the historical, smoking and tobacco- related health factors from the NH facility where the Encounter took place. Current Smoking Status This section includes the most current smoking, or tobacco-related health factor, from the NH facility where the Encounter took place. Date/Time [...] the Encounter. The data comes from the NH facility where the Encounter took place. Date/Time Smoking Status/Tobacco Use Comment F acility Mar 07, 2000 12:35 PM CURRENT NON-TOBACC O USER-HX OF USE [facility] Advance Directives: All historical and current Section Date Range: From patient's date of to the date document was created. This section includes ALL of a patient's completed or amended [place] Advance and Rescinded Directives. The entries below indicate that a directive exists for the patient, but an actual copy is not included with this document. The data comes from all [place] facilities. Date Advance Directives Provider Source Oct 21, 2022 FRANKLIN KO [facility] Sep 23, 2004 ADVANCE DIRECTIVE CJ RUDOLPH [facility] May 24, 2004 ADVANCE DIRECTIVE [facility]ITCH [facility] May 24, 2000 ADVANCE DIRECTIVE MICHELE [facility] Nov 11, 1996 ADVANCE DIRECTIVE MAGGIE DRAKE [facility] December 08, 1995 ADVANCE DIRECTIVE NATANAELKI JAUREGUI [facility] Radiology Reports: +/- 30 days [...] the Encounter. The data comes from all [place] treatment facilities. Date/Time Radiology Report Provider Source Jan 15, 2024 12:42 PM US ABDOMEN LIMITED W/BLOOD FLOW DOPPLER: BETTY HAAS [id number] -1970 M Exm Date: JAN 15, 2024@12:42 Req Phys: KOSTA SOTO Loc: [facility]-GI CONSULT (Req'g Loc) Img Loc: [facility]-ULTRASOUND Service: Unknown [facility], [facility] [address] [place] [address] (Case [id number] COMPLETE) US ABDOMEN LTD, SINGLE ORG OR CHRISTIN(US Detailed) CPT:41966 Reason for Study: elevated LFTs (Case [id number] COMPLETE) US BLOOD FLOW ABD/RENAL (LTD) (US Detailed) CPT:95514 Clinical History: Organ to Image: Liver Reason for exam: elevated LFTs Report Status: Verified Date Reported: JAN 15, 2024 Date Verified: JAN 15, 2024 [employer] Social Worker E-Sig:/ES/DUNIA LUNA Report: CASE #: [id number], [id number] EXAMINATION: Limited sonogram of the right upper [...] or cholecystitis. Report dictated by Lucien Ruiz (claims vice president) I, Dunia Luna, have reviewed the images and report and concur with these findings. Primary Interpreting Staff: DUNIA LUNA MD (Elementary School Social Worker) Primary Interpreting Resident: LUCIEN RUIZ MD /DUNIA MARTINES [facility] Jan 01, 2024 07:18 PM ANKLE,RIGHT, 3 VIEWS: SAMINABETTY PIKE [id number] -1970 M Exm Date: JAN 01, 2024@19:18 Req Phys: MONICA JULES Loc: [place]-EMERGENCY LINK AND LINK KNITTING MACHINE OPERATOR (Req'g Img Loc: -MAIN RADIOLOGY SUITE Service: [facility], [facility] [address] [place] [address] (Case [id number] COMPLETE) ANKLE,RIGHT, 3 VIEWS (RAD Detailed) CPT:50130 Proc Modifiers : RIGHT Reason for Study: Clinical History: Right anterior aspect just proximal of mid-point Report Status: Verified Date Reported: JAN 01, 2024 Date Verified: JAN 01, 2024 Elementary [employer] Social Worker E-Sig: Report: KNEE,RIGHT,1 OR 2 VIEWS, TIBIA & FIBULA,RIGHT, 2 VIEWS, ANKLE,RIGHT, 3 VIEWS HISTORY: Right lower leg. Right anterior aspect just proximal of mid-point COMPARISON: Right knee radiograph 06/04/2018 TECHNIQUE: 2 views of the right knee, 4 views of the right tibia/fibula, and 3 views of the right ankle, submitted to the [place] National Teleradiology Program (NTP) for interpretation. FINDINGS: [...] and ankle. READING PHYSICIAN: Rogelio Alford MD -[id number] 01/01/2024 18:34 PDT [facility] National Teleradiology Program [phone] (For Medical Practitioner Use Only) Attention Patients / Veterans: If you have questions or concerns about these test results, please contact your ordering provider or primary care team. Primary Interpreting Staff: RADIOLOGY,OUTSIDE SERVICE, Staff Physician / RADIOLOGY,OUTSIDE SERVICE [facility] Jan 01, 2024 07:18 PM TIBIA & FIBULA,RIGHT, 2 VIEWS: SAMINAYOONLESIA LETICIA [id number] -1970 M Exm Date: JAN 01, 2024@19:18 Req Phys: MONICA JULES Loc: -EMERGENCY LINK AND LINK KNITTING MACHINE OPERATOR (Req'g Img Loc: -MAIN RADIOLOGY SUITE Service: [facility], [facility] [address] [place] [address] (Case [id number] COMPLETE) TIBIA & FIBULA,RIGHT, 2 VIEWS (RAD Detailed) CPT:83842 Proc Modifiers : RIGHT Reason for Study: Right lower leg Clinical History: Right anterior aspect just proximal of mid-point Report Status: Verified Date Reported: JAN 01, 2024 Date Verified: JAN 01, 2024 [employer] Social Worker E-Sig: Report: KNEE,RIGHT,1 OR 2 VIEWS, TIBIA & FIBULA,RIGHT, 2 VIEWS, ANKLE,RIGHT, 3 VIEWS HISTORY: Right lower leg. Right anterior aspect just proximal of mid-point COMPARISON: Right knee radiograph 06/04/2018 TECHNIQUE: 2 views of the right knee, 4 views of the right tibia/fibula, and 3 views of the right ankle, submitted to the [place] National Teleradiology Program (NTP) for interpretation. FINDINGS: [...] and ankle. READING PHYSICIAN: Rogelio Alford MD -[id number] 01/01/2024 18:34 PDT [facility] [place] Teleradiology Program [phone] (For Medical Practitioner Use Only) Attention Patients / Veterans: If you have questions or concerns about these test results, please contact your ordering provider or primary care team. Primary Interpreting Staff: RADIOLOGY,OUTSIDE SERVICE, Staff Physician / RADIOLOGY,OUTSIDE SERVICE [facility] Jan 01, 2024 07:18 PM KNEE,RIGHT,1 OR 2 VIEWS: BETTY HAAS [id number] -1970 M Exm Date: JAN 01, 2024@19:18 Req Phys: MONICA JULES Loc: [place]-EMERGENCY LINK AND LINK KNITTING MACHINE OPERATOR (Req'g Img Loc: -MAIN RADIOLOGY SUITE Service: [facility], [facility] [address] [place] [address] (Case [id number] COMPLETE) KNEE,RIGHT,1 OR 2 VIEWS (RAD Detailed) CPT:05127 Proc Modifiers : RIGHT, LATERAL Reason for Study: right lower leg Clinical History: Right anterior aspect just proximal of mid-point Report Status: Verified Date Reported: JAN 01, 2024 Date Verified: JAN 01, 2024 [employer] Social Worker E-Sig: Report: KNEE,RIGHT,1 OR 2 VIEWS, TIBIA & FIBULA,RIGHT, 2 VIEWS, ANKLE,RIGHT, 3 VIEWS HISTORY: Right lower leg. Right anterior aspect just proximal of mid-point COMPARISON: Right knee radiograph 06/04/2018 TECHNIQUE: 2 views of the right knee, 4 views of the right tibia/fibula, and 3 views of the right ankle, submitted to the [place] National Teleradiology Program (NTP) for interpretation. FINDINGS: [...] and ankle. READING PHYSICIAN: Rogelio Alford MD -[id number] 01/01/2024 18:34 PDT [facility] National Teleradiology Program [phone] (For Medical Practitioner Use Only) Attention Patients / Veterans: If you have questions or concerns about these test results, please contact your ordering provider or primary care team. Primary Interpreting Staff: RADIOLOGY,OUTSIDE SERVICE, Staff Physician / RADIOLOGY,OUTSIDE SERVICE [facility] Encounter Notes: All associated encounter notes This section contains the clinical notes associated to the Encounter. Date/Time Encounter Note(s) Provider Source Jan 01, 2024 09:38 PM EMERGENCY DEPT DISCHARGE NOTE: LOCAL TITLE: DISCHARGE INSTRUCTIONS EMERGENCY DEPT ST[facility] STANDARD TITLE: EMERGENCY DEPT DISCHARGE NOTE DATE OF NOTE: JAN 01, 2024@21:38:07 ENTRY DATE: JAN 01, 2024@21:38:07 AUTHOR: DUNIA MCLAIN COSIGNER: URGENCY: STATUS: COMPLETED DISCHARGE INSTRUCTIONS IMPORTANT: [...] Department visit. You were treated today by Crystal, . YOU ARE THE MOST IMPORTANT FACTOR IN YOUR RECOVERY. Follow the provided instructions carefully. CONTACT INFORMATION: -Hospital Information: [facility] - [address] [place] [address]. [phone] -CRISIS Line: If you are having thoughts of harming yourself or thoughts of suicide immediately call the [place] Crisis line at [phone] -Nurse Line: If you have any questions regarding your health or symptoms please contact the nurse line at [phone] -General Help: Any questions or concerns, call [place] Clinical Contact Center - [phone]. Ask to speak to a doctor Monday thru Monday 8a-4:30p VISIT NOTES: If you had special tests, such as EKG's or X-rays, we will review them again within 24 hours. We will call you if there are any new suggestions. CLINICAL IMPRESSION: 1 - right leg contusion/abrasion DISCHARGE INSTRUCTIONS AND PATIENT-DIRECTED FOLLOW-UP RECOMMENDATIONS: DIET: regular ACTIVITY: ad sarah NEW MEDS:ibuprofen, tramadol as prescribed ADDITIONAL INSTRUCTIONS: ice, rest, elevation as needed. watch for signs of infeciton as discussed. MEDICATION RECONCILIATION: CONTINUE ALL PRESCRIBED MEDICATIONS ASDIRECTED FOLLOW-UP WITH PRIMARY WEIGHT RECORDER/SPECIALIST: routine in 1-2 weeks ifnot improving, sooner if worse RETURN TO EMERGENCY: if any worries or concerns FOLLOW APPOINTMENT INFORMATION: It is important that you keep your scheduled appointments. If you have questions, or if you need to Make, Change or Cancel an Appointment or relay a message to your Primary Care or Specialty Care Provider please call [phone]. If you are not already established with a [place] primary rn patient care, an administrative request has been placed to offer that to you. You will recieve a notification for follow-up to be connected with a health care provider. Future Appointments 01/11/2024 at 10:15am [facility]-PHONE PHARM PAIN 01/15/2024 at 1:00pm [facility]-ULTRASOUND 1 01/30/2024 at 3:00pm [facility]-VVC PCT HASSAN PSO 02/02/2024 at 2:30pm [facility] MHC IND TOCHTROP 1 02/23/2024 at 10:30am -HEP LISNAHEED-AYESHAMAN 02/26/2024 at 3:00pm -PULMONARY DEMIDENKO 04/03/2024 at 11:00am -ENDOCRINOLOGY LAUNDRY HOUSEKEEPER 4 04/15/2024 at 1:00pm [facility]-PACT E LAUNDRY HOUSEKEEPER RESIDENT 1 MEDICATION INFORMATION: Take your medicines as prescribed. If you do not understand any of your medicines, please ask questions. If you think you may not be able to pickling machine operator your medicine, please let us [...] Team to have your Medication List reviewed. Pending Medications TRAMADOL HCL 50MG TAB \ Sig: TAKE 1 TABLET BY MOUTH FOUR TIMES A DAY NEEDED\Indication: FOR PAIN Active Medications ACCU-CHEK GUIDE (GLUCOSE) TEST STRIP USE 1 STRIP FOR BLOOD TEST TWICE A DAY ALTERNATING TIMES EACH DAY *STABLE INSULIN THERAPY* Mar ALBUTEROL 90MCG (CFC-F) 200D ORAL INHL INHALE 2 PUFFS BY ORAL INHALATION FOUR TIMES A DAY NEEDED FOR BREATHING. SHAKE WELL. RINSE MOUTHPIECE FREQUENTLY TO PREVENT CLOGGING. BETAMETHASONE DIPROPIONATE 0.05% OINT APPLY LIGHTLY TO AFFECTED AREA(S) THREE TIMES A DAY (EXTERNAL USE ONLY) CHOLECALCIF 50MCG (D3-2,000UNIT) TAB TAKE TWO TABLETS BY MOUTH ONCE A DAY FOR VITAMIN D DEFICIENCY. CPD-NALTREXONE 3MG (LOW DOSE) CAP TAKE 1 CAPSULE BY MOUTH ONCE A DAY CYANOCOBALAMIN 100MCG TAB TAKE ONE TABLET BY MOUTH ONCE A DAY FOR B12 SUPPLEMENTATION CYCLOBENZAPRINE HCL 10MG TAB TAKE ONE TABLET BY MOUTH THREE TIMES A DAY NEEDED FOR MUSCLE SPASM MAY CAUSE DROWSINESS. DO NOT DRINK ALCOHOL WHILE TAKING THIS MEDICATION. DEXTROSE 24GM/31GM SQUEEZE TUBE TAKE 1 TUBE BY MOUTH ONCE A DAY NEEDED REPEAT DOSE IF HYPOGLYCEMIA CONTINUES 15 MINUTES AFTER THE FIRST DOSE. DICLOFENAC NA 1% TOP GEL APPLY 4 GM TO AFFECTED AREA(S) FOUR TIMES A DAY FOR PAIN/INFLAMMATION; NOT MORE THAN 16 GRAMS DAILY TO ANY LOWER EXTREMITY JOINT. NOT MORE THAN 8 GRAMS DAILY TO ANY UPPER EXTREMITY JOINT. MAX 32GM/DAY OVER ALL JOINTS. (MEASURE DOSE WITH RULER ATTACHED INSIDE BOX) DOCUSATE NA 100MG CAP TAKE ONE CAPSULE BY MOUTH TWICE A DAY FOR SOFTENING STOOL HOLD FOR LOOSE STOOL/DIARRHEA. DRESSING,POLYSKIN II 2 X 2.75IN JEFFERY#4951 USE/APPLY DRESSING(S) TO AFFECTED AREA(S) DIRECTED FOR USE WITH GLUCOSE SENSOR EMPAGLIFLOZIN 25MG TAB TAKE ONE TABLET BY MOUTH ONCE A DAY EZETIMIBE 10MG TAB TAKE ONE TABLET BY MOUTH ONCE A DAY TO LOWER CHOLESTEROL FISH OIL 1000MG (500MG DHA/EPA) CAP TAKE TWO CAPSULES BY MOUTH TWICE A DAY TO LOWER TRIGLYCERIDES FLUTICAS 250/SALMETEROL 50 INHL DISK 60 INHALE 1 INHALATION BY ORAL INHALATION TWICE A DAY FOR ASTHMA (OPEN DISKUS; CLICK ONLY ONCE; MAY INHALE TWICE TO COMPLETE DOSE; CLOSE WHEN FINISHED) RINSE MOUTH AND SPIT AFTER EACH USE. GLIPIZIDE 5MG TAB TAKE ONE TABLET BY MOUTH TWO TIMES A DAY BEFORE MEALS TAKE 30 MINUTES BEFORE EATING. GLUCOSE SENSOR SnapNamesSTYLE BREN 3 USE SENSOR EVERY 2 WEEKS FOR BLOOD SUGAR MONITORING CHANGE SENSOR/SITE EVERY 14 DAYS. TO REPLACE SENSOR FOR ANY REASON OR FOR TECHNICAL HELP PLEASE CALL [employer] DESK: -SPECIFIC PHONE NUMBER: ([phone]). IBUPROFEN 600MG TAB TAKE ONE TABLET BY MOUTH EVERY EIGHT(8) HOURS NEEDED FOR PAIN TAKE WITH FOOD. LIDOCAINE 2.5/PRILOCAINE 2.5% CREAM APPLY LIGHTLY TO AFFECTED AREA(S) TWICE DAILY NEEDED LIDOCAINE 5% PATCH APPLY 1 PATCH TO SKIN SITE NIGHTLY NEEDED FOR PAIN. MAY USE 1-3 PATCHES. PATCHES MAY BE CUT TO FIT ONTO FEET. APPLY PATCH AND PRESS FIRMLY FOR 10-15 SECONDS. KEEP ON FOR 12 HOURS THEN REMOVE PATCH FOR 12 HOURS. METFORMIN HCL 500MG 24HR SA TAB TAKE FOUR TABLETS BY MOUTH ONCE A DAY FOR BLOOD SUGAR CONTROL. TAKE WITH FOOD. AVOID ALCOHOL. DISCONTINUE BEFORE GETTING XRAY DYE. METHYLPREDNISOLONE 4MG TAB DOSEPAK,21 TAKE TABLETS BY MOUTH DIRECTED RASH TAKE 6 TABLETS BY MOUTH ON DAY ONE, THEN DECREASE BY ONE TABLET DAILY UNTIL GONE. TAKE WITH FOOD. NYSTATIN [id number] UNT/GM CREAM APPLY LIBERALLY TO AFFECTED AREA(S) THREE TIMES A DAY FOR FUNGAL SKIN INFECTION - TOPICAL USE ONLY. POLYETHYLENE GLYCOL 3350 ORAL PWDR MIX AND DRINK 1 CAPFUL BY MOUTH ONCE A DAY NEEDED FOR CONSTIPATION (MEASURE WITH CAP AND MIX IN 8 OZ OF WATER) PRAZOSIN HCL 2MG CAP TAKE THREE CAPSULES BY MOUTH AT BEDTIME FOR NIGHTMARES MAY CAUSE DIZZINESS OR DROWSINESS. PREGABALIN 100MG ORAL CAP TAKE TWO CAPSULES BY MOUTH EVERY MORNING AND TAKE THREE CAPSULES EVERY EVENING FOR FIBROMYALGIA *MAY CAUSE DROWSINESS* SEMAGLUTIDE 2MG/0.75ML INJ PEN 3ML INJECT 2MG UNDER THE SKIN EVERY WEEK FOR DIABETES SODIUM CHLORIDE 0.65% SOLN NASAL SPRAY USE 1 SPRAY INTO NOSTRIL(S) EVERY 4 HOURS NEEDED FOR NASAL CONGESTION TRAZODONE HCL 100MG TAB TAKE TWO TABLETS BY MOUTH AT BEDTIME FOR DEPRESSION TRIAMCINOLONE ACETONIDE 0.1% CREAM APPLY SPARINGLY TO AFFECTED AREA(S) TWICE A DAY FOR CONTACT DERMATITIS (EXTERNAL USE ONLY) TRIAMCINOLONE CREAM,TOP SPARINGLY TO AFFECTED AREA(S) TWICE A DAY (Non-VA Medication) Medications Medications in the last 90 days CETIRIZINE HCL 10MG TAB TAKE ONE TABLET BY MOUTH ONCE A DAY NEEDED MAY TAKE UP TO TWO TABLETS A DAY FOR ITCH PANTOPRAZOLE NA 40MG EC TAB TAKE ONE TABLET BY MOUTH EVERY MORNING BEFORE A MEAL TO LOWER STOMACH ACID - TAKE 30 MINUTES BEFORE MEAL(S) This Information Is About Your Illness and Diagnosis CONTUSIONS (Bruises) Contusions are injuries to a body part caused by a blunt object. The force of the injury breaks some of the tiny blood vessels in and under the skin. Leaking blood from these broken vessels causes swelling and the blue color of the skin. As the bruise heals, the swelling will go away. The bruise will change as the blood is washed away from the inside. Its color will change from blue to yellow-green, and later to a faint brown. It should disappear completely in about 3 weeks. Please follow these instructions: -Apply ice packs. These help keep the swelling down in the first 2 days after an injury. -After 2 days, use warm packs. That will help the injury heal faster. Contact your health care provider as soon as possible if you have any of the following: -increased pain or swelling. -fever. -pain lasting longer than 1 week. -any new problems or concerns. Contact your health care provider as soon as possible if you have: -Concerns for an emergency medical condition -Uncontrolled pain or other life-threatening symptoms -Any worries or concerns -Other: ___ END OF INSTRUCTIONS /es/ DUNIA MCLAIN MD STAFF PHYSICIAN Signed: 01/01/2024 21:38 DUNIA MCLAIN [facility] Jan 01, 2024 07:05 PM EMERGENCY DEPT TRIAGE NOTE: LOCAL TITLE: EMERGENCY DEPARTMENT TRIAGE NOTE STANDARD TITLE: EMERGENCY DEPT TRIAGE NOTE DATE OF NOTE: JAN 01, 2024@19:05 ENTRY DATE: JAN 01, 2024@19:05:09 AUTHOR: HANNA PHILIP COSIGNER: URGENCY: STATUS: COMPLETED EMERGENCY DEPARTMENT TRIAGE NOTE Has ADDENDA Emergency Department/Urgent Care Center Triage Patient age:53 Sex: MALE On arrival patient was: WHEELCHAIR Patient phone number: Allergies: NIACIN, SIMVASTATIN, COREG 25MG TABLET, PRAVASTATIN, SHRIMP, ATORVASTATIN ROSUVASTATIN, LOVASTATIN, PITAVASTATIN Subjective/Chief Complaint: to triage C/O right lower leg pain after falling on . states that he they were camping and he fell into the tent adn struck the bed. [place] states that the pain and bruising has gotten worse since the fall Objective: to triage with abovec omaplints, appears in NAD. [place] has a scabbed over abrasion to the anterior aspect of his right lower leg, mild brusing noted upon arrival to triage The patient is not a fall risk. BP: P: R: WT: T: HT: Temperature 98.7 F (37.1 C) Pulse 73 Respirations 18 Blood Pressure 149/84 Pain scale recorded: 6 Pulse Oximetry 93 Room Air Sepsis Screening Evaluation Emergency Severity Index (LELIA) level Level 3 Current Medications: Active Outpatient Medications (including Supplies): [...] STOOL/DIARRHEA. 11) DRESSING,POLYSKIN II 2 X 2.75IN JEFFERY#6340 USE/APPLY ACTIVE DRESSING(S) TO AFFECTED AREA(S) DIRECTED FOR USE WITH GLUCOSE SENSOR 12) EMPAGLIFLOZIN 25MG TAB TAKE ONE TABLET BY MOUTH ONCE ACTIVE A DAY 13) EZETIMIBE 10MG TAB TAKE ONE TABLET BY MOUTH ONCE A ACTIVE DAY TO LOWER CHOLESTEROL 14) FISH OIL 1000MG (500MG DHA/EPA) CAP TAKE TWO CAPSULES ACTIVE BY MOUTH TWICE A DAY TO LOWER TRIGLYCERIDES 15) FLUTICAS 250/SALMETEROL 50 INHL DISK 60 INHALE 1 ACTIVE INHALATION BY ORAL INHALATION TWICE A DAY FOR ASTHMA (OPEN DISKUS; CLICK ONLY ONCE; MAY INHALE TWICE TO COMPLETE DOSE; CLOSE WHEN FINISHED) RINSE MOUTH AND SPIT AFTER EACH USE. 16) GLIPIZIDE 5MG TAB TAKE ONE TABLET BY MOUTH TWO TIMES ACTIVE A DAY BEFORE MEALS TAKE 30 MINUTES BEFORE EATING. 17) GLUCOSE SENSOR IMTYLE BREN 3 USE SENSOR EVERY ACTIVE 2 WEEKS FOR BLOOD SUGAR MONITORING CHANGE SENSOR/SITE EVERY 14 DAYS. TO REPLACE SENSOR FOR ANY REASON OR FOR TECHNICAL HELP PLEASE CALL [facility] HELP DESK: -SPECIFIC PHONE NUMBER: [phone]). 18) LIDOCAINE 2.5/PRILOCAINE 2.5% CREAM APPLY LIGHTLY TO ACTIVE AFFECTED AREA(S) TWICE DAILY NEEDED 19) LIDOCAINE 5% PATCH APPLY 1 PATCH [...] ALCOHOL. DISCONTINUE BEFORE GETTING XRAY DYE. 21) METHYLPREDNISOLONE 4MG TAB DOSEPAK,21 TAKE TABLETS BY ACTIVE MOUTH DIRECTED RASH TAKE 6 TABLETS BY MOUTH ON DAY ONE, THEN DECREASE BY ONE TABLET DAILY UNTIL GONE. TAKE WITH FOOD. 22) NYSTATIN 790192 UNT/GM CREAM APPLY LIBERALLY TO ACTIVE AFFECTED AREA(S) THREE TIMES A DAY FOR FUNGAL SKIN INFECTION - TOPICAL USE ONLY. 23) POLYETHYLENE GLYCOL 3350 ORAL PWDR MIX AND DRINK 1 ACTIVE CAPFUL BY MOUTH ONCE A DAY NEEDED FOR CONSTIPATION (MEASURE WITH CAP AND MIX IN 8 OZ OF WATER) 24) PRAZOSIN HCL 2MG CAP TAKE THREE CAPSULES BY MOUTH AT ACTIVE BEDTIME FOR NIGHTMARES MAY CAUSE DIZZINESS OR DROWSINESS. 25) PREGABALIN 100MG ORAL CAP TAKE TWO CAPSULES BY MOUTH ACTIVE EVERY MORNING AND TAKE THREE CAPSULES EVERY EVENING FOR FIBROMYALGIA *MAY CAUSE DROWSINESS* 26) SEMAGLUTIDE 2MG/0.75ML INJ PEN 3ML INJECT 2MG UNDER ACTIVE THE SKIN EVERY WEEK FOR DIABETES 27) SODIUM CHLORIDE 0.65% SOLN NASAL SPRAY USE 1 SPRAY ACTIVE INTO NOSTRIL(S) EVERY 4 HOURS NEEDED FOR NASAL CONGESTION 28) TRAZODONE HCL 100MG TAB TAKE TWO TABLETS BY MOUTH AT ACTIVE BEDTIME FOR DEPRESSION 29) TRIAMCINOLONE ACETONIDE 0.1% CREAM APPLY SPARINGLY TO ACTIVE AFFECTED AREA(S) TWICE A DAY FOR CONTACT DERMATITIS (EXTERNAL USE ONLY) Active Non-VA Medications Status 1) Non-VA TRIAMCINOLONE ACETONIDE 0.025% CREAM SPARINGLY ACTIVE TO AFFECTED AREA(S) TWICE A DAY 30 Total Medications Current Problems: 1) Abnormal results of liver function studies 2) Diverticulitis 3) Erectile dysfunction 4) Obesity 5) Chest pain 6) Sensory-neural hearing loss 7) Back pain (SNOMED CT 024601501) 8) Benign hypertension (SNOMED CT 31345731) 9) Convulsion 10) Male hypogonadism 11) Conversion [...] Exposure to potentially hazardous substance Suicide Screen: [place] Suicide Severity Rating Scale (C-SSRS) screener 1. [...] required due to responses to other questions. - This patient's last pain assessment score was: 6 (01/01/2024 19:07). A detailed pain assessment showed the following: Pain characteristics (per patient's own words) Aching, Soreness Location of current pain Leg /es/ Hanna Philip, NANCI, RN, TAWANNA REGISTERED NURSE Signed: 01/01/2024 19:09 01/01/2024 ADDENDUM STATUS: COMPLETED Pt given medicaiton per physician order: DIPHTH TOX/TET TOX ADSORBED (ADULT) INJ DIPHTH TOX/TET TOX ADSORBED (ADULT) SYR 0.5 ML IM ONE-TIME /es/ YONATHAN SPEAR MPH, BSN, RN REGISTERED NURSE Signed: 01/01/2024 21:36 HANNA PHILIP [facility]
--- OUTSIDE RECORDS SUMMARY | 2024-11-30 15:26 | XMS_ITS | Encounter Summary ---
Author Name [facility] Address [address] [place] [address] Care Team Providers Care Angiography Nurse Name Role Phone YONATHAN LINDSAY Primary Care Provider OMEGA Bethea Unavailable Unavailable Selected Encounter This section includes the information on record at [place] for the Encounter. Date/Time Encounter Type Encounter Description Reason Provider Source Aug 02, 2024 01:30 PM OFFICE O/P EST SF 10 MIN UROLOGY CLINIC ICD-10-CM N48.1 CHARLOTTE Benedict [facility] Encounter Template Text not used by [place] Assessments - Encounter Diagnoses This section includes the primary and secondary diagnoses documented for the Encounter. Date/Time Primary/Secondary Diagnosis Diagnosis Name Provider Source Aug 02, 2024 01:47 PM PRIMARY CHARLOTTE Benedict [facility] Plan of Treatment: Future Appointments (+ 6 months) and Future Tests (+/- 45 days) The Plan of Treatment section includes future care activities for the patient from all [place] treatmentfacilities. This section includes future appointments and future orders which are active, pending or scheduled. Future Appointments This section includes appointments that were scheduled to occur 6 months from the date of the Encounter, up to a maximum of 20 appointments. The data comes from all [place] treatment facilities. Appointment Date/Time Appointment Type Appointme nt Facility Name Aug 08, 2024 02:00 PM AMBULATORY - PSYCHIATRY [facility] Aug 09, 2024 02:00 PM AMBULATORY - SURGERY [facility] Aug 13, 2024 03:00 PM AMBULATORY - PSYCHIATRY [facility] Aug 27, 2024 09:30 AM AMBULATORY - REHAB MEDICIN E [facility] Sep 03, 2024 10:30 AM AMBULATORY - NONE [facility] Sep 11, 2024 11:00 AM AMBULATORY - [facility] Sep 12, 2024 02:30 PM AMBULATORY - MEDICINE [facility] Sep 27, 2024 10:15 AM AMBULATORY - REHAB MEDICIN E [facility] Oct 10, 2024 02:00 PM AMBULATORY - PSYCHIATRY [facility] Oct 24, 2024 11:00 AM AMBULATORY - REHAB MEDICIN E [facility] Oct 25, 2024 10:30 AM AMBULATORY - MEDICINE [facility] Nov 01, 2024 01:00 PM AMBULATORY - SURGERY . [facility] Nov 13, 2024 12:00 PM AMBULATORY - NONE [facility] Nov 13, 2024 02:00 PM AMBULATORY - MEDICINE [facility] November 29, 2024 11:15 AM AMBULATORY - REHAB MEDICIN E [facility] December 16, 2024 02:30 PM AMBULATORY - MEDICINE [facility] December 17, 2024 02:00 PM AMBULATORY - PSYCHIATRY [facility] Jan 13, 2025 11:15 AM AMBULATORY - MEDICINE [facility] Active, Pending, and Scheduled Orders This section includes a listing of several types of active, pending, and scheduled orders, including clinic medications orders, diagnostic test orders, procedure orders and consult orders; where the start date of the order is 45 days before the date of the Encounter or 45 days after the date of theEncounter. The data comes from all [place] treatment facilities. Test Date/Time Test Type Test Details Facility Name Jul 18, 2024 12:00 AM Laboratory - Chemi stry Order HGA1C BLOOD [facility] Jul 18, 2024 12:00 AM Laboratory - Chemi stry Order HEPATIC FUNTION PANEL (STL) GREEN LI/HEP BLD/PLAS PLASMA SP [facility] Jul 18, 2024 12:00 AM Laboratory - Chemi stry Order PROST. SPECIFIC AG.(PB-STL) GOLD/RED SST SERUM SP [facility] Jul 18, 2024 12:00 AM Laboratory - Chemi stry Order AMMONIA (STL-MA) WHITE CAP EDTA PLASMA SP [facility] Jul 18, 2024 12:00 AM Laboratory - Chemi stry Order MICRAL/CREAT PROFILE (L) URINE SP [facility] Vital Signs: All taken on the encounter date This section contains inpatient and outpatient Vital Signs collected on the date of the Encounter. Date/Time Temperature Pulse Blood Pressure Respiratory Rate SP02 Pain Height Weight Body Mass Index Source Aug 02, 2024 02:14 PM 97.1 80 142/[address] [facility] Social History: Smoking Status (Most current) and Tobacco Use (All prior to encounter date) This section includes the most current, and the historical, smoking and tobacco- related health factors from the [place] facility where the Encounter took place. Current Smoking Status This section includes the most current smoking, or tobacco-related health factor, from the [place] facility where the Encounter took place. Date/Time Current Smoking Status Comment Facility May 26, 2000 01:36 PM CURRENT NON-TOBACC O USER-HX OF USE stop smoking 10yrs ago,started smoking at 14yrs,smoked 2packs a day [facility] Tobacco Use History This section includes a history of the smoking, or tobacco-related health factors, that were collected on or before the date of the Encounter. The data comes from the [place] facility where the Encounter took place. Date/Time Smoking Status/Tobacco Use Comment F acility Mar 07, 2000 12:35 PM CURRENT NON-TOBACC O USER-HX OF USE [facility] Advance Directives: All historical and current Section Date Range: From patient's date of to the date document was created. This section includes ALL of a patient's completed or amended [place] Advance and Rescinded Directives. The entries below indicate that a directive exists for the patient, but an actual copy is not included with this document. The data comes from all [place] facilities. Date Advance Directives Provider Source Oct 21, 2022 FR[place] KO [facility] Sep 23, 2004 ADVANCE DIRECTIVE EDILYumiCJ [facility] May 24, 2004 ADVANCE DIRECTIVE MITCH ZEE Brenda [facility] May 24, 2000 ADVANCE DIRECTIVE MICHELE CENTENO [facility] Nov 11, 1996 ADVANCE DIRECTIVE MAGGIE DRAKE [facility] December 08, 1995 ADVANCE DIRECTIVE KI SANTOYO [facility] Encounter Notes: All associated encounter notes This section contains the clinical notes associated to the Encounter. Date/Time Encounter Note(s) Provider Source Aug 02, 2024 01:30 PM UROLOGY NOTE: LOCAL TITLE: UROLOGY NOTE STANDARD TITLE: UROLOGY NOTE DATE OF NOTE: AUG 02, 2024@13:30 ENTRY DATE: AUG 02, 2024@13:30:35 AUTHOR: CHARLOTTE GENAO EXP COSIGNER: URGENCY: STATUS: COMPLETED CHIEF COMPLAINT, HPI, EXAM & DATA CC:s/p ipp mar 2024 COMPLAINTS: Mr Herring returns to review IPP pump cycling. He has not yet had sex. He has been hesitant due to concerns of being dissapointed. APPEARANCE: alert and orientedx3, in NAD abd soft Penoscrotal incision well healed penile shaft skin appears mildly inflamed and some balanitis. ASSESSME NT (DXS AND PROBLEMS) ------- 54 yo M s/p IPP. Patient able to cycle the device but not sexually active PLANS--- - encouraged patient to apply betamethosone twice daily and limit carbohydrate consumption to minimize blood sugars. (MORE INFORMATION) - * LABS------- CREATINECREATININE 1.59 H mg/dL 04/08/2024 15:28 UAURINE COLOR Colorless 09/12/2023 21:20 APPEARANCE Clear 09/12/2023 21:20 U.PH 6.5 09/12/2023 21:20 U.BILIRUBIN Negative mg/dL 09/12/2023 21:20 U.NITRITE Negative mg/dL 09/12/2023 21:20 PROST. SPECIFIC AG.(PB-STL) 0.388 ng/mL 05/15/2023 15:37 PROST. SPECIFIC AG.(PB-STL) 0.578 ng/mL 04/25/2022 14:44 PROST. SPECIFIC AG.(PB-STL) 0.719 ng/mL 04/09/2021 12:43 PROST. SPECIFIC AG.(PB-STL) 0.441 ng/ml 08/06/2019 11:19 PAST MEDICAL, SOCIAL, FAMILY HX AND ROS ECOG PERFORMANCE STATUS: RELEVANT MEDICAL PROBLEMS: 1) Abnormal results of liver function studies 2) Diverticulitis 3) Erectile dysfunction 4) Obesity 5) Chest pain 6) Sensory-neural hearing loss 7) Back pain (SNOMED CT 084369762) 8) Benign hypertension (SNOMED CT 33512320) 9) Convulsion 10) Male hypogonadism 11) Conversion disorder (SNOMED CT 581321331) 12) Testicular hypofunction 13) Osteoarthritis of right [...] STOOL 12) DRESSING,POLYSKIN II 2 X 2.75IN JEFFERY#2731 USE/APPLY ACTIVE DRESSING(S) TO AFFECTED AREA(S) DIRECTED [...] Indication: FOR ATOPIC DERMATITIS 26 Total Medications ROS AND PMFS HISTORY REVIEWED TODAY? INSTRUCTIONS TO > /los/ CHARLOTTE GENAO MD Staff Physician, Urology Signed: 08/02/2024 13:47 CHARLOTTE GENAO [facility]
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
--- OUTSIDE RECORDS SUMMARY | 2024-11-30 15:26 | XMS_ITS | Encounter Summary ---
Author Name [facility] [place] Organization [place] Address [address] [place] [address] Care Team Providers Care Corn Shredder Name Role Phone YONATHAN LINDSAY Primary Care Provider OMEGA Bethea Unavailable Unavailable Selected Encounter This section includes the information on record at [place] for the Encounter. Date/Time Encounter Type Encounter Description Reason Provider Source Jan 22, 2024 11:58 AM Outpatient Encounter COMMUNITY CARE CONSULT KALYANI VASQUEZ Encounter Template Text not used by [place] Plan of Treatment: Future Appointments (+ 6 [...] Appointment Type Appointme nt Facility Name Jan 30, 2024 10:00 AM AMBULATORY - SURGERY [facility] Jan 30, 2024 03:00 PM AMBULATORY - PS[facility]IATRY [facility] Feb 02, 2024 02:30 PM [facility] Feb 08, 2024 01:30 PM AMBULATORY - NONE [facility] Feb 13, 2024 10:00 AM [facility]UL[facility]ORY - NONE [facility] Feb 15, 2024 10:00 AM AMBULATORY - MEDICINE [facility] Feb 19, 2024 11:00 AM AMBULATORY - NONE . [facility] Feb 23, 2024 10:30 AM AMBULATORY - MEDICINE [facility] Feb 26, 2024 03:00 PM AMBULATORY - MEDICINE [facility] Mar 05, 2024 03:00 PM AMBULATORY - PSYCHIATRY [facility] Mar 08, 2024 01:00 PM AMBULATORY - PSYCHIATRY [facility] Mar 26, 2024 03:00 PM AMBULATORY - PSYCHIATRY [facility] Apr 03, 2024 11:00 AM AMBULATORY - MEDICINE [facility] Apr 08, 2024 02:00 PM AMBULATORY - SURGERY [facility] Apr 09, 2024 01:00 PM AMBULATORY - NONE [facility] Apr 19, 2024 10:00 AM AMBULATORY - NONE [facility] Apr 23, 2024 03:00 PM AMBULATORY - MEDICINE [facility] Apr 29, 2024 01:00 PM AMBULATORY - NONE [facility] Apr 30, 2024 03:00 PM AMBULATORY - PSYCHIATRY [facility] May 03, 2024 10:30 AM AMBULATORY - SURGERY [facility] Active, Pending, and Scheduled Orders [...] ANTI-MITOCHONDRIAL AB (STL) GOLD/RED SST SERUM SP [facility] December 19, 2023 12:00 AM Laboratory - Chemistry Order ALPHA-1 ANTITRYPSIN (STL) GREEN LI/HEP BLD/PLAS PLASMA SP [facility] December 19, 2023 12:00 AM Laboratory - Chemistry Order ACTIN (SMOOTHMUSCLE) ANTIBODY IGG GOLD/RED SST SERUM SP [facility] December 19, 2023 12:00 AM Laboratory - Chemistry Order CERULOPLASMIN (STL-PB) GOLD/RED SST SERUM SP [facility] Social History: Smoking Status (Most current) [...] ago,started smoking at 14yrs,smoked 2packs a day [facility] Tobacco Use History This section includes a history of the smoking, or tobacco-related health factors, that were collected on or before the date of the Encounter. The data comes from the [facility] where the Encounter took place. Date/Time Smoking Status/Tobacco Use Comment F acility Mar 07, 2000 12:35 PM CURRENT NON-TOBACC O USER-HX OF USE [facility] Advance Directives: All historical and current Section Date Range: From patient's date of to the date document was created. This section includes ALL of a patient's completed or amended [place] Advance and Rescinded Directives. The entries below indicate that a directive exists for the patient, but an actual copy is not included with this document. The data comes from all [facility]. Date Advance Directives Provider Source Oct 21, 2022 [facility]LIN KO [facility] Sep 23, 2004 ADVANCE DIRECTIVE CJ RUDOLPH [facility] May 24, 2004 ADVANCE DIRECTIVE MITCH ZEE [facility]REVA [facility] May 24, 2000 ADVANCE DIRECTIVE MICHELE CENTENO TREVA IS [facility] Nov 11, 1996 ADVANCE DIRECTIVE MAGGIE DRAKE [facility] December 08, 1995 ADVANCE DIRECTIVE KI SANTOYO [facility] Radiology Reports: +/- 30 days of [...] ABDOMEN LIMITED W/BLOOD FLOW DOPPLER: BETTY HAAS [id number] -1970 M Exm Date: JAN 15, 2024@12:42 Req Phys: KOSTA SOTO Loc: [place]-GI CONSULT (Req'g Loc) Img Loc: [facility]-ULTRASOUND Service: Unknown [address] [address] (Case [id number] COMPLETE) US ABDOMEN LTD, SINGLE ORG OR CHRISTIN(US Detailed) CPT:96054 Reason for Study: elevated LFTs (Case [id number] COMPLETE) US BLOOD FLOW ABD/RENAL (LTD) (US Detailed) CPT:61927 Clinical History: Organ to Image: Liver Reason for exam: elevated LFTs Report Status: Verified Date Reported: JAN 15, 2024 Date Verified: JAN 15, 2024 Hand Rug Braider E-Sig:/ES/DUNIA LUNA Report: CASE #: [id number], [id number] EXAMINATION: Limited sonogram of the right upper [...] or cholecystitis. Report dictated by Lucien Ruiz (advertising vice president) I, Dunia Luna, have reviewed the images and report and concur with these findings. Primary Interpreting Staff: DUNIA LUNA MD (Hand Rug Braider) Primary Interpreting Resident: LUCIEN RUIZ MD /DUNIA MARTINES [facility] Jan 01, 2024 07:18 PM ANKLE,RIGHT, 3 VIEWS: BETTY HAAS [id number] -1970 M Exm Date: JAN 01, 2024@19:18 Req Phys: MONICA JULES Loc: [place]-EMERGENCY DIRECTOR OF QUANTITATIVE RESEARCH (Req'g Img Loc: [place]-MAIN RADIOLOGY SUITE Service: [facility], [facility] [address] [place] [address] (Case [id number] COMPLETE) ANKLE,RIGHT, 3 VIEWS (RAD Detailed) CPT:97415 Proc Modifiers : RIGHT Reason for Study: Fell Clinical History: Right anterior aspect just proximal of mid-point Report Status: Verified Date Reported: JAN 01, 2024 Date Verified: JAN 01, 2024 Hand Rug Braider E-Sig: Report: KNEE,RIGHT,1 OR 2 VIEWS, TIBIA [...] and ankle. READING PHYSICIAN: Rogelio Alford MD -[id number] 01/01/2024 18:34 PDT [facility] National Teleradiology Program [phone] (For Medical Practitioner Use Only) Attention Patients / Veterans: If you have questions or concerns about these test results, please contact your ordering provider or primary care team. Primary Interpreting Staff: RADIOLOGY,OUTSIDE SERVICE, Staff Physician / RADIOLOGY,OUTSIDE SERVICE [facility] Jan 01, 2024 07:18 PM KNEE,RIGHT,1 OR 2 VIEWS: BETTY HAAS [id number] -1970 M Exm Date: JAN 01, 2024@19:18 Req Phys: MONICA JULES Loc: [place]-EMERGENCY DIRECTOR OF QUANTITATIVE RESEARCH (Req'g Img Loc: [place]-MAIN RADIOLOGY SUITE Service: [facility], [facility] [address] [place] [address] (Case [id number] COMPLETE) KNEE,RIGHT,1 OR 2 VIEWS (RAD Detailed) CPT:86174 Proc Modifiers : RIGHT, LATERAL Reason for Study: right lower leg Clinical History: Right anterior aspect just proximal of mid-point Report Status: Verified Date Reported: JAN 01, 2024 Date Verified: JAN 01, 2024 Hand Rug Braider E-Sig: Report: KNEE,RIGHT,1 OR 2 VIEWS, TIBIA [...] and ankle. READING PHYSICIAN: Rogelio Alford MD -[id number] 01/01/2024 18:34 PDT [facility] National Teleradiology Program [phone] (For Medical Practitioner Use Only) Attention Patients / Veterans: If you have questions or concerns about these test results, please contact your ordering provider or primary care team. Primary Interpreting Staff: RADIOLOGY,OUTSIDE SERVICE, Staff Physician / RADIOLOGY,OUTSIDE SERVICE [facility] Jan 01, 2024 07:18 PM TIBIA & FIBULA,RIGHT, 2 VIEWS: BETTY HAAS [id number] -1970 M Exm Date: JAN 01, 2024@19:18 Req Phys: MONICA JULES Loc: [place]-EMERGENCY DIRECTOR OF QUANTITATIVE RESEARCH (Req'g Img Loc: [place]-MAIN RADIOLOGY SUITE Service: Unknown [facility], [address] [place] [address] (Case [id number] COMPLETE) TIBIA & FIBULA,RIGHT, 2 VIEWS (RAD Detailed) CPT:92732 Proc Modifiers : RIGHT Reason for Study: Right lower leg Clinical History: Right anterior aspect just proximal of mid-point Report Status: Verified Date Reported: JAN 01, 2024 Date Verified: JAN 01, 2024 Hand Rug Braider E-Sig: Report: KNEE,RIGHT,1 OR 2 VIEWS, TIBIA [...] and ankle. READING PHYSICIAN: Rogelio Alford MD -[id number] 01/01/2024 18:34 PDT [facility] National Teleradiology Program [phone] (For Medical Practitioner Use Only) Attention Patients / Veterans: If you have questions or concerns about these test results, please contact your ordering provider or primary care team. Primary Interpreting Staff: RADIOLOGY,OUTSIDE SERVICE, Staff Physician / RADIOLOGY,OUTSIDE SERVICE [facility] Encounter Notes: All associated encounter notes This section contains the clinical notes associated to the Encounter. Date/Time Encounter Note(s) Provider Source Jan 22, 2024 11:58 AM NONVA NOTE: LOCAL TITLE: COMMUNITY CARE-CARE COORDINATION PLAN NOTE [address] STAND[address] TITLE: NONVA NOTE DATE OF NOTE: JAN 22, 2024@11:58 ENTRY DATE: JAN 22, 2024@11:58:22 AUTHOR: KALYANI VASQUEZ EXP COSIGNER: URGENCY: STATUS: COMPLETED Community Care Consult: OPHTH SURG Consult No: [id number] [facility] Referral #: [id number] Chief Complaint: Cataract evaluation and treatment Patient Admitted? Unknown Level of Care Coordination Moderate Care Coordination was determined from: Chart Review Facility Community Care Office Contact Care Coordination Point of Contact: Kalyani Vasquez RN Services: Basic Care Coordination Services Monitoring and coordination of Rehab/PT Services Direct communication to referring provider Care management, if appropriate Plan: Uploaded to [facility], faxed to provider. Follow up care coordination as needed for cataract extraction. /los/ KALYANI VASQUEZ RN Patient Care Service, Care in the Community Unit Signed: 01/22/2024 12:01 KALYANI VASQUEZ [facility]
--- OUTSIDE RECORDS SUMMARY | 2024-11-30 15:26 | XMS_ITS | Encounter Summary ---
Author Name [facility] [place] [facility] [place] Organization [facility] [place] Address [address] [place] [address] Care Team Providers Care Vat Cleaner Name Role Phone YONATHAN LINDSAY Primary Care Provider OMEGA Bethea Unavailable Unavailable Selected Encounter This section includes the information on record at [place] for the Encounter. Date/Time Encounter Type Encounter Description Reason Provider Source Feb 08, 2024 01:30 PM PSYCHOPHYSIOLOGICAL THERAPY [facility] ICD-10-CM F44.5 Conversion disorder with seizures or convulsions MARVIN AVILA Yumi Encounter Template Text not used by [place] Assessments - Encounter Diagnoses This section includes the primary and secondary diagnoses documented for the Encounter. Date/Time Primary/Secondary Diagnosis Diagnosis Name Provider Source Feb 08, 2024 02:27 PM PRIMARY Conversion disorder with seizures or convulsions HARLEY AVILA [facility] Plan of Treatment: Future Appointments (+ 6 months) and Future Tests (+/- 45 days) The Plan of Treatment section includes future care activities for the patient from all [place] treatmentfacilities. This section includes future appointments and future orders which are active, pending or scheduled. Future Appointments This section includes appointments that were scheduled to occur 6 months from the date of the Encounter, up to a maximum of 20 appointments. The data comes from all [place] treatment facilities. Appointment Date/Time Appointment Type Appointme nt Facility Name Feb 13, 2024 10:00 AM AMBULATORY - NONE [facility] Feb 15, 2024 10:00 AM AMBULATORY - MEDICINE [facility] Feb 19, 2024 11:00 AM AMBULATORY - NONE [facility] Feb 23, 2024 10:30 AM AMBULATORY - MEDICINE [facility] Feb 26, 2024 03:00 PM AMBULATORY - MEDICINE [facility] Mar 05, 2024 03:00 PM AMBULATORY - PSYCHIATRY [facility] Mar 08, 2024 01:00 PM AMBULATORY - PSYCHIATRY [facility] Mar 26, 2024 03:00 PM AMBULATORY - PSYCHIATRY [facility] Apr 03, 2024 11:00 AM AMBULATORY - MEDICINE [facility] Apr 08, 2024 02:00 PM AMBULATORY - SURGERY [facility] Apr 09, 2024 01:00 PM AMBULATORY - NONE [facility] Apr 19, 2024 10:00 AM AMBULATORY - NONE [facility] Apr 23, 2024 03:00 PM AMBULATORY - MEDICINE [facility] Apr 29, 2024 01:00 PM AMBULATORY - NONE [facility] Apr 30, 2024 03:00 PM AMBULATORY - PSYCHIATRY [facility] May 03, 2024 10:30 AM AMBULATORY - SURGERY [facility] May 21, 2024 01:00 PM AMBULATORY - PSYCHIATRY [facility] May 31, 2024 10:30 AM AMBULATORY - SURGERY [facility] Jun 05, 2024 09:30 AM AMBULATORY - NONE [facility] Jun 14, 2024 11:00 AM AM[facility]UL[facility]ORY - SUR[facility] Lab Results: +/- 30 days [...] Type Comment Feb 23, 2024 11:19 AM [facility] CONJ. BILIRUBIN PLASMA Specimen Type: PLASMA Comment: LDL Unable to be calculated LDL calculation invalid when Triglyceride exceeds 250 mg/dl Ordering Provider: NIKA SANCHEZ Report Released Date/Time: Feb 23, 2024 10:51 AM Reporting Lab: [facility] [address] [address] Performing Lab: [facility] [address] [address] CONJ. BILIRUBIN 0.2 mg/dL 0-0.5 Feb 23, 2024 11:19 AM [facility] PT/INR NEW (STL-MA) PLASMA Specimen Type: PLAS MA No comment entered. Ordering Provider: NIKA SANCHEZ Report Released Date/Time: Feb 23, 2024 10:51 AM Reporting Lab: [facility] [address] [address] Performing Lab: [facility] [address] [address] PROTIME 12.2 s 9.4-12.5 INR VALUE 1.1 {INR} Feb 23, 2024 11:19 AM [facility] LIPID PANEL (STL) PLASMA Specimen Type: PLASM A Comment: LDL Unable to be calculated LDL calculation invalid when Triglyceride exceeds 250 mg/dl Ordering Provider: NIKA SANCHEZ Report Released Date/Time: Feb 23, 2024 10:51 AM Reporting Lab: [place] [address] [address] Performing Lab: [place] [address] [address] CHOLESTEROL 153 mg/dL 0-200 TRIGLYCERIDE 373 mg/dL H 0-150 DIRECT LDL 64 mg/dL L >100 CALCULATED LDL comment mg/dL HDL(New) 37 mg/dL L >40 Feb 23, 2024 11:19 AM [facility] COMPREHENSIVE METABOLIC PANEL PLASMA Specimen Type: PLASMA Comment: LDL Unable to be calculated LDL calculation invalid when Triglyceride exceeds 250 mg/dl Ordering Provider: NIKA SANCHEZ Report Released Date/Time: Feb 23, 2024 10:51 AM Reporting Lab: [address] [address] Performing Lab: [address] [address] CREATININE 0.85 mg/dL 0.7-1.3 UREA NITROGEN 14.4 [...] 102.6 >60 Feb 23, 2024 11:19 AM [facility] CBC BLOOD Specimen Type: BLOOD No comment entered. Ordering Provider: NIKA SANCHEZ Report Released Date/Time: Feb 23, 2024 10:51 AM Reporting Lab: [address] [address] Performing Lab: [address] [address] WBC 7.1 10*3/uL 3.6-11.2 RBC 5.10 10*6/uL [...] 0.60 BASOPHILS, ABSOLUTE 0.02 10*3/uL 0.00-0. 20 Advance Directives: All historical and current Section Date Range: From patient's date of to the date document was created. This section includes ALL of a patient's completed or amended [place] Advance and Rescinded Directives. The entries below indicate that a directive exists for the patient, but an actual copy is not included with this document. The data comes from all [place] facilities. Date Advance Directives Provider Source Oct 21, [address] [facility] Sep 23, 2004 ADVANCE DIRECTIVE CJ RUDOLPH [facility] May 24, 2004 ADVANCE DIRECTIVE MITCH ZEE TREVA IS [facility] May 24, 2000 ADVANCE DIRECTIVE MICHELE CENTENOU IS [facility] Nov 11, 1996 ADVANCE DIRECTIVE MAGGIE DRAKE [facility] December 08, 1995 ADVANCE DIRECTIVE KI SANTOYO [facility] Radiology Reports: +/- 30 days [...] the Encounter. The data comes from all [place] treatment facilities. Date/Time Radiology Report Provider Source Jan 15, 2024 12:42 PM US ABDOMEN LIMITED W/BLOOD FLOW DOPPLER: BETTY HAAS [id number] -1970 M Ex Date: JAN 15, 2024@12:42 Req Phys: KOSTA SOTO Loc: [place]-GI CONSULT (Req'g Loc) Img Loc: [facility]ULTRASOUND Service: [address] [address] (Case [id number] COMPLETE) US ABDOMEN LTD, SINGLE ORG OR CHRISTIN(US Detailed) CPT:09296 Reason for Study: elevated LFTs (Case 617 COMPLETE) US BLOOD FLOW ABD/RENAL (LTD) (US Detailed) CPT:62371 Clinical History: Organ to Image: Liver Reason for exam: elevated LFTs Report Status: Verified Date Reported: JAN 15, 2024 Date Verified: JAN 15, 2024 Manager Of Quality E-Sig:/ES/DUNIA DIANA Report: CASE #: [id number], [id number] EXAMINATION: Limited sonogram of the right upper [...] or cholecystitis. Report dictated by Lucien Ruiz (physician president) I, Dunia Diana, have reviewed the images and report and concur with these findings. Primary Interpreting Staff: DUNIA DIANA MD (Manager Of Quality) Primary Interpreting Resident: LUCIEN RUIZ MD /DUNIA MARTINES [facility] Encounter Notes: All associated encounter notes This section contains the clinical notes associated to the Encounter. Date/Time Encounter Note(s) Provider Source Feb 08, 2024 01:49 PM [facility] NOTE: LOCAL TITLE: BIOFEEDBACK - WHOLE HEALTH COMPLEMENTARY APPROACH STANDARD TITLE: [facility] NOTE DATE OF NOTE: FEB 08, 2024@13:49 ENTRY DATE: FEB 08, 2024@13:49:41 AUTHOR: MITCH AVILA COSIGNER: URGENCY: STATUS: COMPLETED WHOLE HEALTH - BIOFEEDBACK TRAINING SESSION SESSION: 3 SESSION LENGTH: 60 minutes CPT Code: 79264 DIAGNOSIS: conversion disorder; fibrmyalgia; SESSION FORMAT: in-person CONSENT FOR BIOFEEDBACK & RELEVANCE TO MEDICAL TREATMENT: the was educated on the pros and cons for use of biofeedback training as a therapeutic intervention; the and i collaboratively discussed the use of biofeedback training to facilitate wellbeing and strengthen goal attainment; the was advised that biofeedback is not intended as a stand-alone treatment for health conditions, nor is it intended to replace existing treatment. the understands that biofeedback training as a therapeutic tool is voluntary; it is this provider's clinical opinion that use of biofeedback training to address the 's medical conditions and treatment plan will enhance goal attainment and symptom alleviation. the understands the information that was provided and consents to use of this treatment modality Additional overview of biofeedback purpose, procedures, and techniques was provided, and offered verbal consent. Orientation to equipment including placement of sensors and cleaning/maintenance was reviewed. [place] denied any issues related to alcohol wipes oradhesives. PRESENTING PROBLEM & REFFERAL INFORMATION: the is [...] of pain sensations RELEVANT BETWEEN SESSION DETAILS: Im much better than I was back in August. HOME PRACTICE: I've been doing my breathing exercises whenever I get worked up. inhale x 4; hold x 2; exhale x 3 this actually calms me down. INTERVENTIONS UTILIZED: - HRV Biofeedback Training - Psychoeducation re: the role of paced diaphragmatic breathing at 6 breaths per minute to promote cardiorespiratory coherence, reducing stress activation and promoting greater parasympathetic nervous system engagement. ASSESSMENT MEASURES USED THIS SESSION: A [employer]-10 unit and [employer] software were used to measure, analyze, and record biofeedback data. Today's biofeedback session emphasized three biorhythms, as measured by the Nexus 10: 1.peripheral skin temperature (PST), using a sensitive thermistor; 2. galvanic skin conductivity using sweast gland activity; 3. Heart Rate (HR) using a pulse oximeter, and 3. Respiration Rate (RR) using a respiration belt to monitor breath movement. The data for each physiological measurement is recorded below and reflects mean averages obtained during various phases of training. (T1)The was guided to breathe evenly at rates of 10, 8, 7, 6.5 and 6 breaths per minute; he was coached with use of the breath pacer to acclimate as he adopted a slowed, diaphragmatic breath rate and rhythm; he was given verbal coaching to release tension from the body; (T2)the was introduced to positivie heart emotion as a tool for optimizing heart coherence. He utilized an image of his in his mind's eye with the emotion of appreciation held in his heart. BL = Baseline; T1 & T2 = Training Phases; PT = Post-Training TODAY'S PHYSIOLOGICAL MEASUREMENT MEANS: BL T1 T2 PT PST: 90.94 90.74 90.75 90.27 SC: 3.46 3.96 3.55 3.63 HR: 74.29 70.50 68.55 69.71 RR: 19.97 10.30 13.57 7.39 Coh: 0.09 0.37 0.29 0.30 DATA INTERPRETATION: the shows good capacity to adapt to use of breath pacer today; despite being in physical pain, he was able ot sustain focus and allow for positive heart emotion to support improved heart coherence while maintaining paced diaphragmatic breathing; per software analysis, the 's resonant frequency breathing rate is 6.8 breaths per minute. TREATMENT INDICATIONS: continue with HRV and Heart Coherence Training RECOMMENDED AT HOME PRACTICE: - is coached to download Breathing Zone charmaine, which he will utilize for at home practice @ 6.8 breaths per minute 10 min twice daily; RISK ASSESSMENT: the 's risk level has increased since our previous session; he and I discuss his experiences and time is spent validating his good judgment with help seeking; also reinforcing the many reasons he has to continue living; the is directly asked about suicidal ideation and he firmly denies. He is working with tx providers for weekly check ins and has recently generated a suicide safety plan; with this in mind, the remains sustainable as an outpatient at [...] coherence through use of paced diaphragmatic breathing personal goals 1. to be able to spend 5 minutes alone uninterrupted 2. to be able to read alone 3. to share his story - using [employer] software PROGRESS TOWARD GOALS: today is our first session since August; we will resume previously generated treatment plan and assess progress in future sessions. COLLABORATIVE RECOMMENDATIONS/PLAN: The and I collaboratively discussed the outcomes related to this treatment session and the broader treatment goals for this episode of care. changes were made to the tx plan: o RTC orders placed for additional biofeedback sessions o Vet commits to at home practice as outlined above The expressed agreement with assigned tasks and additions to the return to clinic plan. The was satisfied with the outcome of today's session. Vet to maintain active engagement with primary and specialty care providers RESOURCES PROVIDED: o [facility] contact information o Crisis line contact information /los/ MITCH AVILA PSY.D. Psychologist Signed: 02/08/2024 14:37 MITCH AVILA [facility]
--- OUTSIDE RECORDS SUMMARY | 2024-11-30 15:26 | XMS_ITS | Encounter Summary ---
Author Name [facility] [place] [facility] [place] Address [address] [place] [address] Care Team Providers Care Oracle Endeca Consultant Name Role Phone YONATHAN LINDSAY Primary Care Provider OMEGA Bethea Unavailable Unavailable Selected Encounter This section includes the information on record at [place] for the Encounter. Date/Time Encounter Type Encounter Description Reason Pro vider Source Jan 12, 2024 11:32 AM Outpatient Encounter GENERAL INTERNAL MEDICINE [facility] Encounter Template Text not used by [place] Plan of Treatment: Future Appointments (+ 6 [...] Appointment Type Appointme nt Facility Name Jan 15, 2024 11:15 AM AMBULATORY - MEDICINE [facility] Jan 15, 2024 01:00 PM AMBULATORY - NONE [facility] Jan 30, 2024 10:00 AM AMBULATORY - SURGERY [facility] Jan 30, 2024 03:00 PM AMBULATORY - PSYCHIATRY [facility] Feb 02, 2024 02:30 PM AMBULATORY - PSYCHIATRY [facility] Feb 08, 2024 01:30 PM AMBULATORY - NONE [facility] Feb 13, 2024 10:00 AM AMBULATORY - NONE [facility] Feb 15, 2024 10:00 AM AMBULATORY - MEDICINE [facility] Feb 19, 2024 11:00 AM AMBULATORY - NONE [facility] Feb 23, 2024 10:30 AM AMBULATORY - MEDICINE [facility] Feb 26, 2024 03:00 PM AMBULATORY - MEDICINE [facility] Mar 05, 2024 03:00 PM AMBULATORY - PSYCHIATRY [facility] Mar 08, 2024 01:00 PM AMBULATORY - PSYCHIATRY [facility] Mar 26, 2024 03:00 PM AMBULATORY - PSYCHIATRY [facility] Apr 03, 2024 11:00 AM AMBULATORY - MEDICINE [facility] Apr 08, 2024 02:00 PM AMBULATORY - SURGERY [facility] Apr 09, 2024 01:00 PM AMBULATORY - NONE [facility] Apr 19, 2024 10:00 AM AMBULATORY - NONE [facility] Apr 23, 2024 03:00 PM AMBULATORY - MEDICINE [facility] Apr 29, 2024 01:00 PM AMBULATORY - NONE [facility] Active, Pending, and Scheduled Orders This section includes a listing of several types of active, pending, and scheduled orders, including clinic medications orders, diagnostic test orders, procedure orders and consult orders; where the start date of the order is 45 days before the date of the Encounter or 45 days after the date of theEncounter. The data comes from all [facility] facilities. Test Date/Time Test Type Test Details Facility Name Nov 28, 2023 12:00 AM Laboratory - Chemistry Order AMMONIA (STL-MA) WHITE CAP EDTA PLASMA [facility] December 19, 2023 12:00 AM Laboratory - Chemistry Order ALPHA-1 ANTITRYPSIN (STL) GREEN LI/HEP BLD/PLAS PLASMA SP [facility] December 19, 2023 12:00 AM Laboratory - Chemistry Order ANTI-MITOCHONDRIAL AB (STL) GOLD/RED SST SERUM SP [facility] December 19, 2023 12:00 AM Laboratory - Chemistry Order ACTIN (SMOOTHMUSCLE) ANTIBODY IGG GOLD/RED SST SERUM SP [facility] December 19, 2023 12:00 AM Laboratory - Chemistry Order CERULOPLASMIN (STL-PB) GOLD/RED SST SERUM SP [facility] Lab Results: +/- 30 days of the encounter This section includes the Chemistry and Hematology Lab Results on record with [place] for the patient. Radiology Reports and Pathology Reports are provided separately, in subsequent sections. Lab Results This section contains the Chemistry/Hematology Results that were resulted 30 days before or 30 daysafter the date of the Encounter. Date/Time Source Result Type Result - Unit Interpretation Reference Range Specimen Type Comment December 14, 2023 11:58 AM [facility] B12 SERUM Specimen Type: SERUM No comment entered. Ordering Provider: SHELIA MOREIRA Report Released Date/Time: Nov 28, 2023 11:26 AM Reporting Lab: [facility] [address] [facility] [address] Performing Lab: [address] [address] B12 423 pg/mL 213-816 December 14, 2023 11:58 AM [facility] COMPREHENSIVE METABOLIC PANEL PLASMA Specimen Type: PLASMA Comment: No hemolysis noted. Ordering Provider: SHELIA MOREIRA Report Released Date/Time: Nov 28, 2023 11:26 AM Reporting Lab: [facility] [address] [facility] [address] Performing Lab: [place] [address] [facility] [address] CREATININE 0.90 mg/dL 0.7-1.3 UREA NITROGEN 12.9 [...] 100.9 >60 December 14, 2023 11:58 AM [facility] CBC BLOOD Specimen Type: BLOOD No comment entered. Ordering Provider: SHELIA MOREIRA Report Released Date/Time: Nov 28, 2023 11:26 AM Reporting Lab: [address] [address] Performing Lab: [address] [address] WBC 5.9 10*3/uL 3.6-11.2 RBC 5.18 10*6/uL [...] 0.00-0. 20 December 14, 2023 11:57 AM [facility] HGA1C BLOOD Specimen Type: BLOOD No comment entered. Ordering Provider: RAKEL TORRES Report Released Date/Time: December 14, 2023 11:26 AM Reporting Lab: [address] [address] Performing Lab: [facility] [address] [facility] [address] HGA1C 6.8 H 4.0-6.0 December 14, 2023 11:57 AM [facility] VITAMIN D, 25-HYDROXY SERUM Specimen Type: SE RUM No comment entered. Ordering Provider: RAKEL TORRES Report Released Date/Time: December 14, 2023 11:35 AM Reporting Lab: [facility] [address] [facility] [address] Performing Lab: [facility] [address] [facility] [address] VITAMIN D, 25-HYDROXY 44.3 ng/mL 30- Social History: Smoking Status (Most [...] smoking at 14yrs,smoked 2packs a day [facility] Tobacco Use History This section includes a history of the smoking, or tobacco-related health factors, that were collected on or before the date of the Encounter. The data comes from the [place] facility where the Encounter took place. Date/Time Smoking Status/Tobacco Use Comment F acility Mar 07, 2000 12:35 PM CURRENT NON-TOBACC O USER-HX OF USE [facility] Advance Directives: All historical and current [...] Source Oct 21, 2022 FRANKLIN KO [facility] Sep 23, 2004 ADVANCE DIRECTIVE CJ RUDOLPH Kena [facility] May 24, 2004 ADVANCE DIRECTIVE MITCH ZEE [facility] May 24, 2000 ADVANCE DIRECTIVE MICHELE CENTENO IS [facility] Nov 11, 1996 ADVANCE DIRECTIVE MAGGIE DRAKE [facility] December 08, 1995 ADVANCE DIRECTIVE KI SANTOYO [facility] Radiology Reports: +/- 30 [...] ABDOMEN LIMITED W/BLOOD FLOW DOPPLER: BETTY HAAS [id number] -1970 M Exm Date: JAN 15, 2024@12:42 Req Phys: KOSTA SOTO Pat Loc: [place]-GI CONSULT (Req'g Loc) Img Loc: [facility]-ULTRASOUND Service: [address] [address] (Case [id number] COMPLETE) US ABDOMEN LTD, SINGLE ORG OR CHRISTIN(US Detailed) CPT:26012 Reason for Study: elevated LFTs (Case [id number] COMPLETE) US BLOOD FLOW ABD/RENAL (LTD) (US Detailed) CPT:09315 Clinical History: Organ to Image: Liver Reason for exam: elevated LFTs Report Status: Verified Date Reported: JAN 15, 2024 Date Verified: JAN 15, 2024 Media Relations Associate E-Sig:/ES/DUNIA LUNA Report: CASE #: [id number], [id number] EXAMINATION: Limited sonogram of the right upper [...] findings. Primary Interpreting Staff: DUNIA LUNA MD (Media Relations Associate) Primary Interpreting Resident: LUCIEN RUIZ MD /DUNIA MARTINES [facility] Jan 01, 2024 07:18 PM TIBIA & FIBULA,RIGHT, 2 VIEWS: BETTY HAAS [id number] -1970 M Exm Date: JAN 01, 2024@19:18 Req Phys: MONICA JULES Loc: [place]-EMERGENCY [employer] LEAK TESTER (Req'g Img Loc: [place]-MAIN RADIOLOGY SUITE Service: [facility] [address] [place] [address] (Case [id number] COMPLETE) TIBIA & FIBULA,RIGHT, 2 VIEWS (RAD Detailed) CPT:61050 Proc Modifiers : RIGHT Reason for Study: Right lower leg Clinical History: Right anterior aspect just proximal of mid-point Report Status: Verified Date Reported: JAN 01, 2024 Date Verified: JAN 01, 2024 Media Relations Associate E-Sig: Report: KNEE,RIGHT,1 OR 2 VIEWS, TIBIA & FIBULA,RIGHT, 2 VIEWS, ANKLE,RIGHT, 3 VIEWS HISTORY: Right lower leg. Right anterior aspect just proximal of mid-point COMPARISON: Right knee radiograph 06/04/2018 TECHNIQUE: 2 views of the right knee, 4 views of the right tibia/fibula, and 3 views of the right ankle, submitted to the [place] National Teleradiology Program (NTP) for interpretation. FINDINGS: [...] and ankle. READING PHYSICIAN: Rogelio Alford MD -[id number] 01/01/2024 18:34 PDT [facility] National Teleradiology Program [phone] (For Medical Practitioner Use Only) Attention Patients / Veterans: If you have questions or concerns about these test results, please contact your ordering provider or primary care team. Primary Interpreting Staff: RADIOLOGY,OUTSIDE SERVICE, Staff Physician / RADIOLOGY,OUTSIDE SERVICE [facility] Jan 01, 2024 07:18 PM ANKLE,RIGHT, 3 VIEWS: BETTY HAAS [id number] -1970 M Exm Date: JAN 01, 2024@19:18 Req Phys: MONICA JULES Loc: [place]-EMERGENCY [employer] P[employer]AGES LEAK TESTER (Req'g Img Loc: [place]-MAIN RADIOLOGY SUITE Service: [facility] [address] [place] [address] (Case [id number] COMPLETE) ANKLE,RIGHT, 3 VIEWS (RAD Detailed) CPT:61338 Proc Modifiers : RIGHT Reason for Study: Fell Clinical History: Right anterior aspect just proximal of mid-point Report Status: Verified Date Reported: JAN 01, 2024 Date Verified: JAN 01, 2024 Media Relations Associate E-Sig: Report: KNEE,RIGHT,1 OR 2 VIEWS, TIBIA & FIBULA,RIGHT, 2 VIEWS, ANKLE,RIGHT, 3 VIEWS HISTORY: Right lower leg. Right anterior aspect just proximal of mid-point COMPARISON: Right knee radiograph 06/04/2018 TECHNIQUE: 2 views of the right knee, 4 views of the right tibia/fibula, and 3 views of the right ankle, submitted to the [place] National Teleradiology Program (NTP) for interpretation. FINDINGS: [...] and ankle. READING PHYSICIAN: Rogelio Alford MD -[id number] 01/01/2024 18:34 PDT [facility] National Teleradiology Program [phone] (For Medical Practitioner Use Only) Attention Patients / Veterans: If you have questions or concerns about these test results, please contact your ordering provider or primary care team. Primary Interpreting Staff: RADIOLOGY,OUTSIDE SERVICE, Staff Physician / RADIOLOGY,OUTSIDE SERVICE [facility] Jan 01, 2024 07:18 PM KNEE,RIGHT,1 OR 2 VIEWS: SAMINABETTY [id number] -1970 M Exm Date: JAN 01, 2024@19:18 Req Phys: MONICA JULES Loc: [place]-EMERGENCY [employer] P[employer]AGES LEAK TESTER (Req'g Img Loc: -MAIN RADIOLOGY SUITE Service: [facility] [address] [place] [address] (Case [id number] COMPLETE) KNEE,RIGHT,1 OR 2 VIEWS (RAD Detailed) CPT:26163 Proc Modifiers : RIGHT, LATERAL Reason for Study: right lower leg Clinical History: Right anterior aspect just proximal of mid-point Report Status: Verified Date Reported: JAN 01, 2024 Date Verified: JAN 01, 2024 Media Relations Associate E-Sig: Report: KNEE,RIGHT,1 OR 2 VIEWS, TIBIA & FIBULA,RIGHT, 2 VIEWS, ANKLE,RIGHT, 3 VIEWS HISTORY: Right lower leg. Right anterior aspect just proximal of mid-point COMPARISON: Right knee radiograph 06/04/2018 TECHNIQUE: 2 views of the right knee, 4 views of the right tibia/fibula, and 3 views of the right ankle, submitted to the [place] National Teleradiology Program (NTP) for interpretation. FINDINGS: [...] and ankle. READING PHYSICIAN: Rogelio Alford MD -[id number] 01/01/2024 18:34 PDT [facility] National Teleradiology Program [phone] (For Medical Practitioner Use Only) Attention Patients / Veterans: If you have questions or concerns about these test results, please contact your ordering provider or primary care team. Primary Interpreting Staff: RADIOLOGY,OUTSIDE SERVICE, Staff Physician / RADIOLOGY,OUTSIDE SERVICE [facility] Encounter Notes: All associated encounter notes This section contains the clinical notes associated to the Encounter. 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 Band And Cuff Cutter informed Ms Haas that the vet doesn't have a referral for Dental and his eye referral has 09.19.23. Band And Cuff Cutter informed her to contact his PCP and explain to him what the veterans needs are per conversation we had. /los/ GIOVANY YANG COMMERCIAL PRODUCER Signed: 01/12/2024 11:46 GIOVANY WOOD [facility]
--- OUTSIDE RECORDS SUMMARY | 2024-11-30 15:27 | XMS_ITS | Encounter Summary ---
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 Date/Time Encounter Type Encounter Description Reason Provider Source May 21, 2024 01:00 PM OFFICE O/P EST MOD 30 MIN [facility] - IND ICD-10-CM F43.12 Post-traumatic stress disorder, chronic RACHEL LEACH [facility] Encounter Template Text not used by [place] Assessments - Encounter Diagnoses This section includes the primary and secondary diagnoses documented for the Encounter. Date/Time Primary/Secondary Diagnosis Diagnosis Name Provider Source May 21, 2024 01:33 PM PRIMARY Post-traumatic stress disorder, chronic RACHEL LEACH [facility] May 21, 2024 01:33 PM SECONDARY Conversion disorder with seizures or convulsions RACHEL LEACH [facility] May 21, 2024 01:33 PM SECONDARY Major depressive disorder, recurrent, unspecified RACHEL LEACH [facility] Plan of Treatment: Future Appointments (+ 6 months) and Future Tests (+/- 45 days) The Plan of Treatment section includes future care activities for the patient from all [place] treatmentfacilities. This section includes future appointments and future orders which are active, pending or scheduled. Future Appointments This section includes appointments that were scheduled to occur 6 months from the date of the Encounter, up to a maximum of 20 appointments. The data comes from all [place] treatment [facility]. Appointment Date/Time Appointment Type Appointme nt Facility Name May 31, 2024 10:30 AM AMBULATORY - SURGERY [facility] Jun 05, 2024 09:30 AM AMBULATORY - NONE [facility] Jun 14, 2024 11:00 AM AMBULATORY - SURGERY [facility] Jun 17, 2024 03:00 PM AMBULATORY - MEDICINE [facility] Jun 25, 2024 03:00 PM AMBULATORY - PSYCHIATRY [facility] Jul 01, 2024 10:30 AM AMBULATORY - NONE [facility] Jul 08, 2024 10:30 AM AMBULATORY - REHAB MEDICIN E [facility] Jul 18, 2024 02:00 PM AMBULATORY - MEDICINE [facility] Jul 22, 2024 03:00 PM AMBULATORY - NONE [facility] Aug 02, 2024 01:30 PM AMBULATORY - SURGERY [facility] Aug 08, 2024 02:00 PM AMBULATORY - PSYCHIATRY [facility] Aug 09, 2024 02:00 PM AMBULATORY - SURGERY [facility] Aug 13, 2024 03:00 PM AMBULATORY - PSYCHIATRY [facility] Aug 27, 2024 09:30 AM AMBULATORY - REHAB MEDICIN E [facility] Sep 03, 2024 10:30 AM AMBULATORY - NONE [facility] Sep 11, 2024 11:00 AM AMBULATORY - REHAB MEDICIN [facility] Sep 12, 2024 02:30 PM AMBULATORY - MEDICINE [facility] Sep 27, 2024 10:15 AM AMBULATORY - REHAB MEDICIN E [facility] Oct 10, 2024 02:00 PM AMBULATORY - PSYCHIATRY [facility] Oct 24, 2024 11:00 AM AMBULATORY - REHAB MEDICIN E [facility] Social History: Smoking Status (Most current) and Tobacco Use (All prior to encounter date) This section includes the most current, and the historical, smoking and tobacco- related health factors from the [place] facility where the Encounter took place. Current Smoking Status This section includes the most current smoking, or tobacco-related health factor, from the [place] facility where the Encounter took place. Date/Time Current Smoking Status Comment Facil ity Jul 04, 2023 01:09 PM VA-TOBACCO USER EVERY DAY [facility] Tobacco Use History This section includes a history of the smoking, or tobacco-related health factors, that were collected on or before the date of the Encounter. The data comes from the [place] facility where the Encounter took place. Date/Time Smoking Status/Tobacco Use Comment F acility Jul 04, 2023 01:09 PM VA-TOBACCO USE ADVICE [facility] Jul 04, 2023 01:09 PM VA-TOBACCO USE TECHNICAL REPORT WRITER NO [facility] Jul 04, 2023 01:09 PM VA-TOBACCO USE MED NO [facility] Jul 04, 2023 01:09 PM VA-TOBACCO USE WI 30 MIN OF WAKEUP [facility] Jul 04, 2023 01:09 PM VA-TOBACCO USER EVERY DAY [facility] Jul 28, 2022 01:00 PM VA-TOBACCO FORMER USER [facility] Jul 28, 2022 01:00 PM VA-TOBACCO QUIT 15 YRS OR MORE [facility] Jul 13, 2021 01:00 PM VA-TOBACCO DOESNT USE WI 30 MIN WAKEUP [facility] Jul 13, 2021 01:00 PM VA-TOBACCO USE 30 YEARS OR MORE [facility] Jul 13, 2021 01:00 PM VA-TOBACCO USE ADVICE [facility] Jul 13, 2021 01:00 PM VA-TOBACCO USE TECHNICAL REPORT WRITER NO [facility] Jul 13, 2021 01:00 PM VA-TOBACCO USE MED NO [facility] Jul 13, 2021 01:00 PM VA-TOBACCO USER SOME DAYS [facility] May 20, 2020 03:30 PM VA-TOBACCO DOESNT USE WI 30 MIN WAKEUP [facility] May 20, 2020 03:30 PM VA-TOBACCO USE > 1 5 LESS THAN 30 YEARS [facility] May 20, 2020 03:30 PM VA-TOBACCO USE ADVICE [facility] May 20, 2020 03:30 PM VA-TOBACCO USE TECHNICAL REPORT WRITER NO [facility] May 20, 2020 03:30 PM VA-TOBACCO USE MED NO [facility] May 20, 2020 03:30 PM VA-TOBACCO USER SOME DAYS [facility] Jun 26, 2018 11:30 AM VA-TOBACCO FORMER USER [facility] Jun 26, 2018 11:30 AM VA-TOBACCO QUIT 15 YRS OR MORE [facility] Mar 02, 2017 07:35 AM QUIT TOBACCO >7 YEARS AGO [facility] May 25, 2016 05:48 AM CURRENT TOBACCO USER [facility] May 25, 2016 05:48 AM TOBACCO MEDS OFFER ED BUT DECLINED [facility] Jun 23, 2015 02:29 PM QUIT TOBACCO >7 YEARS AGO [facility] Sep 12, 2014 06:15 AM CURRENT TOBACCO USER [facility] Sep 12, 2014 06:15 AM QUIT TOBACCO >7 YEARS AGO [facility] Sep 12, 2014 06:15 AM TOBACCO MEDS OFFER ED BUT DECLINED [facility] Jun 25, 2013 02:47 PM QUIT TOBACCO >7 YEARS AGO [facility] May 04, 2010 12:36 PM LIFETIME NON-USER OF TOBACCO [facility] Jul 30, 2009 11:12 AM CURRENT TOBACCO USER [facility] Mar 20, 2008 01:00 PM CURRENT TOBACCO USER [facility] Mar 20, 2008 01:00 PM TOBACCO OFFERED [facility] Mar 20, 2008 01:00 PM TOBACCO OFFERRED P T MEDS (PROVIDER) [facility] Mar 06, 2007 10:38 AM QUIT TOBACCO >7 YEARS AGO [facility] May 09, 2006 09:29 AM CURRENT TOBACCO USER [facility] Aug 27, 2004 10:41 AM CURRENT TOBACCO USER [facility] Aug 27, 2004 10:41 AM SMOKER <10 [facility] Advance Directives: All historical and current Section Date Range: From patient's date of to the date document was created. This section includes ALL of a patient's completed or amended [place] Advance and Rescinded Directives. The entries below indicate that a directive exists for the patient, but an actual copy is not included with this document. The data comes from all [place] facilities. Date Advance Directives Provider Source Oct 21, 2022 FRANKLIN KO [facility] Sep 23, 2004 ADVANCE DIRECTIVE CJ RUDOLPH [facility] May 24, [address] MITCH ZEE [facility] May 24, 2000 ADVANCE DIRECTIVE MICHELE CENTENO [facility] Nov 11, 1996 ADVANCE DIRECTIVE MAGGIE DRAKE [facility] December 08, 1995 ADVANCE DIRECTIVE KI SANTOYO [facility] Pathology Reports: +/- 30 days of [...] the Encounter. The data comes from all [facility] facilities. Date/Time Pathology Report Provider Source Apr 23, 2024 02:03 PM LR SURGICAL PATHOL OGY REPORT: LOCAL TITLE: LR SURGICAL PATHOLOGY REPORT STANDARD TITLE: PATHOLOGY PROCEDURE NOTE DATE OF NOTE: APR 23, 2024@14:03:17 ENTRY DATE: APR 23, 2024@14:03:17 AUTHOR: CHRISTY MALCOLM COSIGNER: URGENCY: STATUS: COMPLETED $APHDR - - [...] - - - POSTOPERATIVE DIAGNOSIS: Surgeon/physician: CHARLOTTE GENOA MD =-=-=-=-=-=-=-=-=-=-=-=-= -=-=-=-=-=-=-=-=-=-=-=-=- =-=-=-=-=-=-=-=-=-=-=-=-= -=-= - - [...] Performing Laboratory: Surgical Pathology Report Performed By: [facility] [address] [place] [address]# [id number] [address] [place] [phone] $FTR - - - - - - - - - - - - - - - - - - - - - - - - - - - - - - - - - - - - - - - - (End of report) CHRISTY MALCOLM MD [facility] Date Apr 23, 2024 - - - - - - - - - - - - - - - - - - - - - - - - - - - - - - - - - - - - - - - - JC HAAS STANDARD FORM 515 ID:[id number] SEX:M :1970 AGE: 54 LOC:APFEE PCP: Yonathan Coronel NP /los/ CHRISTY MALCOLM Pathologist Signed: 04/23/2024 14:03 CHRISTY MALCOLM [facility] Encounter Notes: All associated encounter notes This section contains the clinical notes associated to the Encounter. Date/Time Encounter Note(s) Provider Source May 21, 2024 01:36 PM ACCOUNTING OF DISCLOSURES NOTE: LOCAL TITLE: STATE PRESCRIPTION DRUG MONITORING PROGRAM STANDARD TITLE: ACCOUNTING OF DISCLOSURES NOTE DATE OF NOTE: MAY 21, 2024@13:36:20 ENTRY DATE: MAY 21, 2024@13:36:20 AUTHOR: RACHEL LEACH EXP COSIGNER: URGENCY: STATUS: COMPLETED This PDMP query was submitted by Rachel Leach. The clinical justification for this PDMP query is to review controlled substances prescribed outside of the [place], and any additional information that may become available, as an important component of standard clinical care, and in accordance with [facility] policy. Patient information was shared with the PDMP Appriss Larsen. No prescription(s) for controlled substances outside the [place] were found in the last 90 days. /los/ RACHEL LEACH Psychiatrist, [facility] Signed: 05/21/2024 13:36 RACHEL LEACH [facility] May 21, 2024 01:00 PM PSYCHIATRY NOTE: LOCAL TITLE: PSYCHIATRY ST[facility] STANDARD TITLE: PSYCHIATRY NOTE DATE OF NOTE: MAY 21, 2024@13:00 ENTRY DATE: MAY 14, 2024@09:59:11 AUTHOR: RACHEL LEACH EXP COSIGNER: URGENCY: STATUS: COMPLETED PSYCHIATRY [facility] Has ADDENDA [facility] - MEDICATION MANAGEMENT Name..................DA OLD,JC MCKEON Age...................54 Sex...................MALE SSN...................[id number] Service Connection.... Service Connected: 100% Rated Disabilities: ASTHMA,BRONCHIAL (30% SC) POST-TRAUMATIC STRESS DISORDER (70% SC) TINNITUS (10% SC) CHRONIC FATIGUE SYNDROME (100% SC) FIBROMYALGIA (40% SC) HIATAL HERNIA (10% SC) SEIZURE DISORDER (80% SC) [facility] CONSENT: Consent: verbally consented to a clinical video telehealth follow-up appointment. Location: At parent's house ([address] [place] [address]) Phone number: Survey: patient alone Lock: The [...] sleep. Denied all others. Med trials: paroxetine: 2957-8974, max dose 30 mg, puts my head all weird. Horrible, violent night terrors. sertraline: 2013, max dose 100 mg didn't tolerate citalopram: 6103-8162, max dose 20 mg doesn't remember Cymbalta: [...] dose 200 mg pregabalin: potentially helpful hydroxyzine: 1740-7001, max dose up to 50 mg daily doesn't remember trazodone: Started in 2011 prazosin: Started in 2012 clonazepam: lorazepam, chronic, increasing tolerance/addiction, taken off zolpidem: 5062-8835, amnesia, sleep walking Ketamine:for pain, believes this made him suicidal Values/hobbies: Family (, lives with and adult daughter), work (runs a [employer] organization), outdoors/hunting INTERVAL HISTORY: HPI: The patient presented on time and in NAD. Patient was last seen on 02/02/2024 at which time Cymbalta was started and a small prescription of Klonopin was given due to increasing stress resulting in worsening PNES. Dr. Pablo's most recent noted reviewed from Apr 30 wherein patient reported feeling better overall. In the interim, the patient stated that he has had his ups and downs. 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 He denied any suicidal thoughts. 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 His mood lately has been a little low in the context of his mom having a stroke a few weeks back. He does have chronic feelings of worthlessness/hopelessness, but he stated I realized years ago you are not alone, and you are not weak for asking for help, so I use the tools I have whenever I have those feelings . He has also noticed an increase in NMs that has been occuring nightly- also attributed to his mom's recent change in health. This has caused an overall difficulty with sleep due to frequent NMs and some disorientation when he wakes up and realizes that he is not home and w/o his . However, he is working on simple acknowledgement of NMs as a simple thought ( like a TV ) to help cope with them. He reported good compliance to medications (his typically organizes them on his behalf). He reported no side effects. He denied changes in substance use. OBJECTIVE: Problem List: 1) Abnormal results of liver function studies 2) Diverticulitis 3) Erectile dysfunction 4) Obesity 5) Chest pain 6) Sensory-neural hearing loss 7) Back pain (SNOMED CT 600953407) 8) Benign hypertension (SNOMED CT [id number]) 9) Convulsion 10) Male hypogonadism 11) Conversion disorder (SNOMED CT 193230832) 12) Testicular hypofunction 13) Osteoarthritis of right [...] Fibromyalgia 29) Exposure to potentially hazardous substance Outpatient Medications: Active Outpatient Medications (including Supplies): Active Outpatient Medications Status 1) ACETAMINOPHEN 500MG TAB TAKE TWO TABLETS BY MOUTH ACTIVE EVERY 6 HOURS NEEDED FOR PAIN CAUTION: DO NOT EXCEED 4000MG PER DAY ACETAMINOPHEN (APAP) FROM ALL MEDS. 2) ALBUTEROL 90MCG (CFC-F) 200D ORAL INHL INHALE 2 PUFFS ACTIVE (S) BY ORAL INHALATION FOUR TIMES A DAY NEEDED FOR BREATHING. SHAKE WELL. RINSE MOUTHPIECE FREQUENTLY TO PREVENT CLOGGING. 3) BETAMETHASONE DIPROPIONATE 0.05% OINT APPLY LIGHTLY ACTIVE TO AFFECTED AREA(S) THREE TIMES A DAY (EXTERNAL USE ONLY) 4) CETIRIZINE HCL 10MG TAB TAKE ONE TABLET BY MOUTH ONCE ACTIVE (S) A DAY FOR ALLERGY SYMPTOMS 5) CHOLECALCIF [...] GEL APPLY 4 GM TO AFFECTED ACTIVE (S) AREA(S) FOUR TIMES A DAY FOR PAIN/INFLAMMATION; NOT MORE THAN 16 GRAMS DAILY TO ANY LOWER EXTREMITY JOINT. NOT MORE THAN 8 GRAMS DAILY TO ANY UPPER EXTREMITY JOINT. MAX 32GM/DAY OVER ALL JOINTS. (MEASURE DOSE WITH RULER ATTACHED INSIDE BOX) 11) DOCUSATE NA 100MG CAP TAKE ONE CAPSULE BY MOUTH TWICE ACTIVE (S) A DAY FOR SOFTENING STOOL HOLD FOR LOOSE STOOL/DIARRHEA. 12) DRESSING,POLYSKIN II 2 X 2.75IN JEFFERY#[id number] USE/APPLY ACTIVE DRESSING(S) TO AFFECTED AREA(S) DIRECTED FOR USE WITH GLUCOSE SENSOR 13) DULOXETINE HCL 30MG EC CAP TAKE ONE CAPSULE BY MOUTH ACTIVE ONCE A DAY FOR PTSD/MOOD/ANXIETY/PAIN DO NOT ABRUPTLY DISCONTINUE MEDICATION. 14) EMPAGLIFLOZIN 25MG TAB TAKE ONE TABLET BY MOUTH ONCE ACTIVE (S) A DAY 15) EZETIMIBE 10MG TAB TAKE ONE TABLET BY MOUTH ONCE A ACTIVE (S) DAY TO LOWER CHOLESTEROL 16) GLIPIZIDE 5MG TAB TAKE ONE TABLET BY MOUTH TWO TIMES ACTIVE A DAY BEFORE MEALS TAKE 30 MINUTES BEFORE EATING. 17) GLUCOSE SENSOR FREESTYLE BREN 3 USE SENSOR EVERY ACTIVE (S) 2 WEEKS FOR BLOOD SUGAR MONITORING CHANGE SENSOR/SITE EVERY 14 DAYS. TO REPLACE SENSOR FOR ANY REASON OR FOR TECHNICAL HELP PLEASE CALL [employer] DESK: -SPECIFIC PHONE NUMBER: ([phone]). 18) GLUCOSE SENSOR FREESTYLE BREN 3 PLUS USE SENSOR ACTIVE EVERY 15 DAYS FOR BLOOD SUGAR MONITORING CHANGE SENSOR/SITE EVERY 15 DAYS. TO REPLACE SENSOR FOR ANY REASON OR FOR TECHNICAL HELP PLEASE CALL [employer] HELP DESK: -SPECIFIC PHONE NUMBER: ([phone]). 19) IBUPROFEN 600MG TAB TAKE ONE TABLET BY MOUTH FOUR ACTIVE TIMES A DAY NEEDED FOR PAIN TAKE WITH FOOD. 20) LIDOCAINE 5% PATCH APPLY 1 PATCH TO SKIN SITE NIGHTLY ACTIVE NEEDED FOR PAIN. MAY USE 1-3 PATCHES. PATCHES MAY BE CUT TO FIT ONTO FEET. APPLY PATCH AND PRESS FIRMLY FOR 10-15 SECONDS. KEEP ON FOR 12 HOURS THEN REMOVE PATCH FOR 12 HOURS. 21) METFORMIN HCL 500MG 24HR SA TAB TAKE FOUR TABLETS BY ACTIVE (S) MOUTH ONCE A DAY FOR BLOOD SUGAR CONTROL. TAKE WITH FOOD. AVOID ALCOHOL. DISCONTINUE BEFORE GETTING XRAY DYE. 22) OXYCODONE HCL 5MG TAB TAKE ONE TABLET BY MOUTH EVERY ACTIVE 6 HOURS FOR POST-OPERATIVE PAIN MAY CAUSE CONSTIPATION 23) POLYETHYLENE GLYCOL 3350 ORAL PWDR MIX [...] INJ PEN 3ML INJECT 2MG UNDER ACTIVE (S) THE SKIN EVERY WEEK FOR DIABETES 27) SODIUM CHLORIDE 0.65% SOLN NASAL SPRAY USE 1 SPRAY ACTIVE INTO NOSTRIL(S) EVERY 4 HOURS NEEDED FOR NASAL CONGESTION 28) SULFAMETHOXAZOLE 800/TRIMETH 160MG TAB TAKE 1 TABLET ACTIVE BY MOUTH EVERY 12 HOURS NEEDED TAKE WITH WATER/AVOID SUNLIGHT. 29) TRAZODONE HCL 100MG TAB TAKE TWO TABLETS BY MOUTH AT ACTIVE (S) BEDTIME FOR DEPRESSION Active Non-VA Medications Status 1) Non-VA TRIAMCINOLONE ACETONIDE 0.025% CREAM SPARINGLY ACTIVE TO AFFECTED AREA(S) TWICE A DAY 30 Total Medications The medication list has been reviewed. Vital Signs: Height: 72 in [182.9 cm] (05/03/2024 10:44) Weight: 284.4 lb [129.00 kg] (05/03/2024 10:44) BMI: 38.7 Temperature: 97.7 F [36.5 C] (05/03/2024 10:44) Blood Pressure: 138/76 (05/03/2024 10:44) Pulse: 82 (05/03/2024 10:44) Respirations: 18 (05/03/2024 10:44) Patient Weight History - Last Four 1. 284.4 lbs. / 129.0 kg. on MAY 03, 2024@10:44:03 2. 282.4 lbs. / 128.1 kg. on APR 19, 2024@18:32:31 3. 280.6 lbs. / 127.3 kg. on APR 19, 2024@10:47:01 4. 275.7 lbs. / 125.1 kg. on APR 08, 2024@13:48:37 Allergies: NIACIN, SIMVASTATIN, COREG 25MG TABLET, PRAVASTATIN, [...] 423 pg/mL 12/14/2023 11:58 Folate: No FOLATE ([facility]);FOLATE (PB);FOLATE (DC 05-07);FOLATE (DC 05/07) data found [...] access to treatment * future orientation * cheondoism jordy (Tenriism) * responsibility towards family History of violence: [...] my clinic on 05/21/2024. Today, the reported that he has had an increase in NMs and a decr in his mood that he attrbuted to recent psychosocial stressors involving his mother's health. He has been processing these emotions/thoughts well, with mindful recognition of them. The patient reported that he feels his mood and nightmares will improve as his mother's health improves. We agreed to hold off on medication titration at this point, although we did discuss that if his mood/PTSD worsens or lingers on even with improvement in his mother's health, we should consider further titration. Patient did request 6 gun locks to be mailed to his house given that he received new guns (he collects them) that he has been unable to walk away safely. I have reached out to staff to help coordinate this request. DIAGNOSES: # PTSD # MDD # PNES # Insomnia TREATMENT PLAN: # PTSD # MDD # PNES -Cont cymbalta 30 mg -Cont prazosin 6 mg qhs -Cont psychotherapy w/ Dr. Pablo -Cont biofeedback # Insomnia -Continue trazodone 200 mg nightly FOLLOW UP: 2-3 mo SUPPORTIVE PSYCHOTHERAPY/PSYCHOEDUCATI ON: 16+ min supportive therapy as we discussed mindfulness techniques with simple acknowledgment of feelings and thoughts along with processing the help of his mother INSTRUCTIONS GIVEN TO PATIENT/FAMILY *Report medication side [...] understanding and reported no further questions. REMINDERS: Suicide Screen - V: [facility]SSRS [facility] (C-SSRS Screener) 1. Over the past month, have you [...] went to the roof but didn't jump)? Yes 8. If YES, was this within the past 3 months? No /los/ RACHEL LEACH [facility] [place] Signed: 05/21/2024 13:33 05/22/2024 ADDENDUM STATUS: COMPLETED Gunlocks mailed out as requested. /los/ BEN VELASQUEZN RN Registered Nurse, [facility] Signed: 05/22/2024 16:27 RACHEL LEACH [facility]
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
--- OUTSIDE RECORDS SUMMARY | 2024-11-30 15:27 | XMS_ITS | Encounter Summary ---
Author Name [facility] [place] Address [address] [place] [address] Care Team Providers Care Key Sander Name Role Phone YONATHAN LINDSAY Primary Care Provider OMEGA Bethea Unavailable Unavailable Selected Encounter This section includes the information on record at [place] for the Encounter. Date/Time Encounter Type Encounter Description Reason Provider Source Jan 01, 2024 07:02 PM EMERGENCY DEPT VISIT [facility] EMERGENCY DEPT ICD-10-CM S80.11XA Contusion of right lower leg, initial encounter DUNIA MCLAIN IHE Encounter Template Text not used by [place] Assessments - Encounter Diagnoses This section includes the primary and secondary diagnoses documented for the Encounter. Date/Time Primary/Secondary Diagnosis Diagnosis Name Provider Source Jan 01, 2024 10:33 PM PRIMARY Contusion of right lower leg, initial encounter DUNIA MCLAIN [facility] Plan of Treatment: Future Appointments (+ 6 months) and Future Tests (+/- 45 days) The Plan of Treatment section includes future care activities for the patient from all [place] treatmentfacilities. This section includes future appointments and future orders which are active, pending or scheduled. Future Appointments This section includes appointments that were scheduled to occur 6 months from the date of the Encounter, up to a maximum of 20 appointments. The data comes from all [place] treatment facilities. Appointment Date/Time Appointment Type Appointme nt Facility Name Jan 11, 2024 10:15 AM AMBULATORY - MEDICINE [facility] Jan 15, 2024 11:15 AM AMBULATORY - MEDICINE [facility] Jan 15, 2024 01:00 PM AMBULATORY - NONE [facility] Jan 30, 2024 10:00 AM AMBULATORY - SURGERY [facility] Jan 30, 2024 03:00 PM AMBULATORY - PSYCHIATRY [facility] Feb 02, 2024 02:30 PM AMBULATORY - PSYCHIATRY [facility] Feb 08, 2024 01:30 PM AMBULATORY - NONE [facility] Feb 13, 2024 10:00 AM AMBULATORY - NONE [facility] Feb 15, 2024 10:00 AM AMBULATORY - MEDICINE [facility] Feb 19, 2024 11:00 AM AMBULATORY - NONE [facility] Feb 23, 2024 10:30 AM AMBULATORY - MEDICINE [facility] Feb 26, 2024 03:00 PM AMBULATORY - MEDICINE [facility] Mar 05, 2024 03:00 PM AMBULATORY - PSYCHIATRY [facility] Mar 08, 2024 01:00 PM AMBULATORY - PSYCHIATRY [facility] Mar 26, 2024 03:00 PM AMBULATORY - PSYCHIATRY [facility] Apr 03, 2024 11:00 AM AMBULATORY - MEDICINE [facility] Apr 08, 2024 02:00 PM AMBULATORY - SURGERY [facility] Apr 09, 2024 01:00 PM AMBULATORY - NONE [facility] Apr 19, 2024 10:00 AM AMBULATORY - NONE [facility] Apr 23, 2024 03:00 PM AMBULATORY - MEDICINE [facility] Active, Pending, and Scheduled Orders This section includes a listing of several types of active, pending, and scheduled orders, including clinic medications orders, diagnostic test orders, procedure orders and consult orders; where the start date of the order is 45 days before the date of the Encounter or 45 days after the date of theEncounter. The data comes from all [place] treatment facilities. Test Date/Time Test Type Test Details Facility Name Nov 28, 2023 12:00 AM Laboratory - Chemistry Order AMMONIA (STL-MA) WHITE CAP EDTA PLASMA SP [facility] December 19, 2023 12:00 AM Laboratory - Chemistry Order ALPHA-1 ANTITRYPSIN (STL) GREEN LI/HEP BLD/PLAS PLASMA SP [facility] December 19, 2023 12:00 AM Laboratory - Chemistry Order ANTI-MITOCHONDRIAL AB (STL) GOLD/RED SST SERUM SP [facility] December 19, 2023 12:00 AM Laboratory - Chemistry Order ACTIN (SMOOTHMUSCLE) ANTIBODY IGG GOLD/RED SST SERUM SP [facility] December 19, 2023 12:00 AM Laboratory - Chemistry Order CERULOPLASMIN (L-PB) GOLD/RED SST SERUM [facility] Lab Results: +/- 30 [...] Comment December 14, 2023 11:58 AM [facility] B12 SERUM Specimen Type: SERUM No comment entered. Ordering Provider: SHELIA MOREIRA Report Released Date/Time: Nov 28, 2023 11:26 AM Reporting Lab: [facility] [address] [address] Performing Lab: [facility] [address] [place] [id number] B12 423 pg/mL 213-816 December 14, 2023 11:58 AM [facility] COMPREHENSIVE METABOLIC PANEL PLASMA Specimen Type: PLASMA Comment: No hemolysis noted. Ordering Provider: SHELIA MOREIRA Report Released Date/Time: Nov 28, 2023 11:26 AM Reporting Lab: [facility] [address] [address] Performing Lab: [facility] [address] [facility] [address] CREATININE 0.90 mg/dL 0.7-1.3 UREA NITROGEN 12.9 [...] 100.9 >60 December 14, 2023 11:58 AM [facility] CBC BLOOD Specimen Type: BLOOD No comment entered. Ordering Provider: SHELIA MOREIRA Report Released Date/Time: Nov 28, 2023 11:26 AM Reporting Lab: [facility] [address] [facility] [address] Performing Lab: [facility] [address] [address] WBC 5.9 10*3/uL 3.6-11.2 RBC 5.18 10*6/uL [...] 0.00-0. 20 December 14, 2023 11:57 AM [facility] HGA1C BLOOD Specimen Type: BLOOD No comment entered. Ordering Provider: RAKEL TORRES Report Released Date/Time: December 14, 2023 11:26 AM Reporting Lab: [address] [address] Performing Lab: [address] [address] HGA1C 6.8 H 4.0-6.0 December 14, 2023 11:57 AM [facility] VITAMIN D, 25-HYDROXY SERUM Specimen Type: SE RUM No comment entered. Ordering Provider: RAKEL TORRES Report Released Date/Time: December 14, 2023 11:35 AM Reporting Lab: [address] [address] Performing Lab: [address] [address] VITAMIN D, 25-HYDROXY 44.3 ng/mL 30-96 Vital Signs: All taken on the encounter date This section contains inpatient and outpatient Vital Signs collected on the date of the Encounter. Date/Time Temperature Pulse Blood Pressure Respiratory Rate SP02 Pain Height Weight Body Mass Index Source Jan 01, 2024 07:07 PM 98.7 73 149/84 18 6 [facility] Social History: Smoking Status (Most current) and Tobacco Use (All prior to encounter date) This section includes the most current, and the historical, smoking and tobacco- related health factors from the [facility] where the Encounter took place. Current Smoking Status This section includes the most current smoking, or tobacco-related health factor, from the [place] facility where the Encounter took place. Date/Time Current Smoking Status Comment Facility May 26, 2000 01:36 PM CURRENT NON-TOBACC O USER-HX OF USE stop smoking 10yrs ago,started smoking at 14yrs,smoked 2packs a day [facility] Tobacco Use History This section includes a history of the smoking, or tobacco-related health factors, that were collected on or before the date of the Encounter. The data comes from the [place] facility where the Encounter took place. Date/Time Smoking Status/Tobacco Use Comment F acility Mar 07, 2000 12:35 PM CURRENT NON-TOBACC O USER-HX OF USE [facility] Advance Directives: All historical and current Section Date Range: From patient's date of to the date document was created. This section includes ALL of a patient's completed or amended [place] Advance and Rescinded Directives. The entries below indicate that a directive exists for the patient, but an actual copy is not included with this document. The data comes from all [facility]. Date Advance Directives Provider Source Oct 21, 2022 FRANKLIN KO [facility] Sep 23, 2004 ADVANCE DIRECTIVE CJ RUDOLPH [facility] May 24, 2004 ADVANCE DIRECTIVE MICTH ZEE Kena TREVA IS [facility] May 24, 2000 ADVANCE DIRECTIVE MICHELE CENTENO [facility] IS [facility] Nov 11, 1996 ADVANCE DIRECTIVE MAGGIE DRAKE [facility] December 08, 1995 ADVANCE DIRECTIVE KI SANTOYO [facility] Radiology Reports: +/- 30 days of [...] the Encounter. The data comes from all [place] treatment facilities. Date/Time Radiology Report Provider Source Jan 15, 2024 12:42 PM US ABDOMEN LIMITED W/BLOOD FLOW DOPPLER: BETTY HAAS [id number] -1970 M Exm Date: JAN 15, 2024@12:42 Req Phys: KOSTA SOTO Loc: [facility]-GI CONSULT (Req'g Loc) Img Loc: [facility]-ULTRASOUND Service: Unknown [facility], [address] [place] [address] (Case [id number] COMPLETE) US ABDOMEN LTD, SINGLE ORG OR CHRISTIN(US Detailed) CPT:54327 Reason for Study: elevated LFTs (Case [id number] COMPLETE) US BLOOD FLOW ABD/RENAL (LTD) (US Detailed) CPT:81547 Clinical History: Organ to Image: Liver Reason for exam: elevated LFTs Report Status: Verified Date Reported: JAN 15, 2024 Date Verified: JAN 15, 2024 Manufacturing Production Manager E-Sig:/ES/DUNIA LUNA Report: CASE #: [id number], [id number] EXAMINATION: Limited sonogram of the right upper [...] or cholecystitis. Report dictated by Lucien Ruiz (radiology asst) I, Dunia Luna, have reviewed the images and report and concur with these findings. Primary Interpreting Staff: DUNIA LUNA MD (Manufacturing Production Manager) Primary Interpreting Resident: LUCIEN RUIZ MD /DUNIA MARTINES [facility] Jan 01, 2024 07:18 PM TIBIA & FIBULA,RIGHT, 2 VIEWS: BETTY HAAS [id number] -1970 M Exm Date: JAN 01, 2024@19:18 Req Phys: MONICA JULES Loc: [place]-EMERGENCY RACE RELATIONS ADVISER (Req'g Img Loc: [facility]-MAIN RADIOLOGY SUITE Service: Unknown [facility], [facility] [address] [place] [address] (Case [id number] COMPLETE) TIBIA & FIBULA,RIGHT, 2 VIEWS (RAD Detailed) CPT:52844 Proc Modifiers : RIGHT Reason for Study: Right lower leg Clinical History: Right anterior aspect just proximal of mid-point Report Status: Verified Date Reported: JAN 01, 2024 Date Verified: JAN 01, 2024 Manufacturing Production Manager E-Sig: Report: KNEE,RIGHT,1 OR 2 VIEWS, TIBIA & FIBULA,RIGHT, 2 VIEWS, ANKLE,RIGHT, 3 VIEWS HISTORY: Right lower leg. Right anterior aspect just proximal of mid-point COMPARISON: Right knee radiograph 06/04/2018 TECHNIQUE: 2 views of the right knee, 4 views of the right tibia/fibula, and 3 views of the right ankle, submitted to the [place] National Teleradiology Program (NTP) for interpretation. FINDINGS: [...] and ankle. READING PHYSICIAN: Rogelio Alford MD -[id number] 01/01/2024 18:34 PDT [facility] National Teleradiology Program [phone] (For Medical Practitioner Use Only) Attention Patients / Veterans: If you have questions or concerns about these test results, please contact your ordering provider or primary care team. Primary Interpreting Staff: RADIOLOGY,OUTSIDE SERVICE, Staff Physician / RADIOLOGY,OUTSIDE SERVICE [facility] Jan 01, 2024 07:18 PM ANKLE,RIGHT, 3 VIEWS: BETTY HAAS [id number] -1970 M Exm Date: JAN 01, 2024@19:18 Req Phys: MONICA JULES Loc: [place]-EMERGENCY RACE RELATIONS ADVISER (Req'g Img Loc: [facility]MAIN RADIOLOGY SUITE Service: [facility], [facility] [address] [place] [address] (Case [id number] COMPLETE) ANKLE,RIGHT, 3 VIEWS (RAD Detailed) CPT:09952 Proc Modifiers : RIGHT Reason for Study: Fell Clinical History: Right anterior aspect just proximal of mid-point Report Status: Verified Date Reported: JAN 01, 2024 Date Verified: JAN 01, 2024 Manufacturing Production Manager E-Sig: Report: KNEE,RIGHT,1 OR 2 VIEWS, TIBIA & FIBULA,RIGHT, 2 VIEWS, ANKLE,RIGHT, 3 VIEWS HISTORY: Right lower leg. Right anterior aspect just proximal of mid-point COMPARISON: Right knee radiograph 06/04/2018 TECHNIQUE: 2 views of the right knee, 4 views of the right tibia/fibula, and 3 views of the right ankle, submitted to the [place] National Teleradiology Program (NTP) for interpretation. FINDINGS: [...] and ankle. READING PHYSICIAN: Rogelio Alford MD -[id number] 01/01/2024 18:34 PDT [facility] National Teleradiology Program [phone] (For Medical Practitioner Use Only) Attention Patients / Veterans: If you have questions or concerns about these test results, please contact your ordering provider or primary care team. Primary Interpreting Staff: RADIOLOGY,OUTSIDE SERVICE, Staff Physician / RADIOLOGY,OUTSIDE SERVICE [facility] Jan 01, 2024 07:18 PM KNEE,RIGHT,1 OR 2 VIEWS: BETTY HAAS [id number] -1970 M Ex Date: JAN 01, 2024@19:18 Req Phys: MONICA JULES Loc: [place]-EMERGENCY RACE RELATIONS ADVISER (Req'g Img Loc: [facility]MAIN RADIOLOGY SUITE Service: Unknown [facility], [facility] [address] [place] [address] (Case [id number] COMPLETE) KNEE,RIGHT,1 OR 2 VIEWS (RAD Detailed) CPT:55813 Proc Modifiers : RIGHT, LATERAL Reason for Study: right lower leg Clinical History: Right anterior aspect just proximal of mid-point Report Status: Verified Date Reported: JAN 01, 2024 Date Verified: JAN 01, 2024 Manufacturing Production Manager E-Sig: Report: KNEE,RIGHT,1 OR 2 VIEWS, TIBIA & FIBULA,RIGHT, 2 VIEWS, ANKLE,RIGHT, 3 VIEWS HISTORY: Right lower leg. Right anterior aspect just proximal of mid-point COMPARISON: Right knee radiograph 06/04/2018 TECHNIQUE: 2 views of the right knee, 4 views of the right tibia/fibula, and 3 views of the right ankle, submitted to the [place] National Teleradiology Program (NTP) for interpretation. FINDINGS: [...] and ankle. READING PHYSICIAN: Rogelio Alford MD -[id number] 01/01/2024 18:34 PDT [facility] National Teleradiology Program [phone] (For Medical Practitioner Use Only) Attention Patients / Veterans: If you have questions or concerns about these test results, please contact your ordering provider or primary care team. Primary Interpreting Staff: RADIOLOGY,OUTSIDE SERVICE, Staff Physician / RADIOLOGY,OUTSIDE SERVICE [facility] Encounter Notes: All associated encounter notes This section contains the clinical notes associated to the Encounter. Date/Time Encounter Note(s) Provider Source Jan 01, 2024 09:30 PM ACCOUNTING OF DISC LOSURES NOTE: LOCAL TITLE: STATE PRESCRIPTION DRUG MONITORING PROGRAM STANDARD TITLE: ACCOUNTING OF DISCLOSURES NOTE DATE OF NOTE: JAN 01, 2024@21:30:05 ENTRY DATE: JAN 01, 2024@21:30:05 AUTHOR: DUNIA MCLAIN EXP COSIGNER: URGENCY: STATUS: COMPLETED This PDMP query was submitted by Dunia Mclain MD. The clinical justification for this PDMP query is to review controlled substances prescribed outside of the [facility], and any additional information that may become available, as an important component of standard clinical care, and in accordance with [facility] policy. Patient information was shared with the PDMP [facility] [place]. No prescription(s) for controlled substances outside the [facility] were found in the last 90 days. /es/ DUNIA MCLAIN MD STAFF PHYSICIAN Signed: 01/01/2024 21:35 DUNIA MCLAIN [facility] Jan 01, 2024 09:28 PM PHYSICIAN EMERGENC Y DEPT NOTE: LOCAL TITLE: EMERGENCY DEPARTMENT ST STANDARD TITLE: PHYSICIAN EMERGENCY DEPT NOTE DATE OF NOTE: JAN 01, 2024@21:28 ENTRY DATE: JAN 01, 2024@21:28:40 AUTHOR: DUNIA MCLAIN EXP COSIGNER: URGENCY: STATUS: COMPLETED TRIAGE CHIEF COMPLAINT: Right faith bruising HPI: Patient is a 53-year-old male presents with complaint of right faith injury. He reports he was camping and got up striking his right faith on a table 4 nights ago. He sustained an abrasion and it has been sore and swollen ever since. He has been treating the abrasion with Neosporin and bandage He reports that the bruising has worsened somewhat over the subsequent days. He has been ambulatory without difficulty. No other injury. Last tetanus immunization is unknown. REVIEW OF SYSTEMS: See HPI for further details. All 10 systems reviewed and otherwise negative unless otherwise detailed herein. PAST MEDICAL HISTORY: 1) Abnormal results of liver function studies 2) Diverticulitis 3) Erectile dysfunction 4) Obesity 5) Chest pain 6) Sensory-neural hearing loss 7) Back pain (SNOMED CT 911325632) 8) Benign hypertension (SNOMED CT 75761482) 9) Convulsion 10) Male hypogonadism 11) Conversion [...] STOOL/DIARRHEA. 11) DRESSING,POLYSKIN II 2 X 2.75IN JEFFERY#6358 USE/APPLY ACTIVE DRESSING(S) TO AFFECTED AREA(S) DIRECTED [...] REASON OR FOR TECHNICAL HELP PLEASE CALL [facility] HELP DESK: -SPECIFIC PHONE NUMBER: ([phone]). 18) LIDOCAINE 2.5/PRILOCAINE 2.5% CREAM APPLY LIGHTLY [...] UNTIL GONE. TAKE WITH FOOD. 22) NYSTATIN 034913 UNT/GM CREAM APPLY LIBERALLY TO ACTIVE AFFECTED [...] AREA(S) TWICE A DAY 30 Total Medications 1) DIPHTH TOX/TET TOX ADSORBED (ADULT) INJ IM ONE-TIME 0.5 ML. SURGICAL HISTORY: not pertinent FAMILY HISTORY: not pertinent SOCIAL HISTORY: Social History Main Topics: Smoking status: Tobacco User Status 05/25/2016 Current Tobacco User Alcohol Use: not endorsed Negative mg/dL (09/12/23 21:20) Illicit Drug Use: not endorsed Sexual Activity: Other Topics of Concern: Child bearing age: N/A LMP: N/A possible: N/A ALLERGIES: Review of patient's allergies indicates: NIACIN, SIMVASTATIN, COREG 25MG TABLET, PRAVASTATIN, SHRIMP, ATORVASTATIN ROSUVASTATIN, LOVASTATIN, PITAVASTATIN PHYSICAL EXAM: VITAL SIGNS: 149/84 (01/01/2024 19:07) 73 (01/01/2024 19:07) 94% (12/19/2023 13:08) 98.7 F [37.1 C] (01/01/2024 19:07) 18 (01/01/2024 19:07) Measurement DT WEIGHT LB(KG)[BMI] 12/19/2023 13:08 278.1(126.14)[38*] 12/14/2023 11:01 276.2(125.28)[38*] 11/14/2023 12:55 272.1(123.42)[37*] Measurement DT PAIN 01/01/2024 19:07 6 CONSTITUTIONAL: No acute distress, Non-toxic appearance, pleasant and conversant HENT: airway patent, normal voice EYES: Conj pink, sclera clear NECK: Grossly normal range of motion PULMONARY/CHEST: Normal effort BACK: : RECTAL: EXTREMITIES: Grossly Normal range of motion There is an abrasion in the anterior mid right lower leg which appears to be healing well without evidence of infection. There is surrounding faint patchy ecchymosis and mild tenderness; muscular compartment is soft and there is no pain with passive range of motion of the ankle. There is no crepitus or erythema NEUROLOGIC: Alert & oriented/reactive, Grossly normal motor function, Normal gait observed, no ataxia, No focal deficits appreciated on cursory screening exam SKIN: Warm, Dry, No erythema, No appreciable significant rash LABS: RADIOLOGY: Right tib-fib/knee/ankle: No fracture, no malalignment on my review ED COURSE & MEDICAL DECISION MAKING: Reviewed x-ray images with patient. Discussed considerations of contusion, hematoma, compartment syndrome, fracture. There is no clinical evidence of compartment syndrome at this time, no radiographic evidence of fracture and he has been ambulatory. I suspect the pain and swelling is all related to contusion and possibly some hematoma in the setting of continuing to ambulate. Will treat with short course of NSAIDs, tramadol though efficacy may be limited due to naltrexone, continue RICE. Tetanus updated Patient and are comfortable with this plan. Nursing notes, medications, vital signs, allergies and pertinent labs & imaging studies reviewed (see chart for details) with lab results reviewed with patient and family/caregivers at bedside and radiology results reviewed with patient and any family/caregivers at bedside. Stable, alert, nontoxic, nonfocal with clinically apparent right lower leg contusion PATIENT FINANCIAL SERVICES COORDINATOR SERVICE/TIME: MEDICATIONS GIVEN IN ED: [X] YES [ ] NO Right lower leg contusion/abrasion DIFFERENTIAL DIAGNOSES CONSIDERED: Contusion, abrasion, hematoma, fracture, compartment syndrome DECISION to ADMIT / DISCHARGE TIME: 2124 DISPOSITION CONDITION:[ x ] Improved [ ] Unchanged [ ] Deteriorated CLINICAL IMPRESSION: 1 - right leg contusion/abrasion DISCHARGE INSTRUCTIONS AND PATIENT-DIRECTED FOLLOW-UP RECOMMENDATIONS: DIET: regular ACTIVITY: ad sarah NEW MEDS:ibuprofen, tramadol as prescribed ADDITIONAL INSTRUCTIONS: ice, rest, elevation as needed. watch for signs of infeciton as discussed. MEDICATION RECONCILIATION: CONTINUE ALL PRESCRIBED MEDICATIONS DIRECTED FOLLOW-UP WITH PRIMARY FINANCIAL AID MANAGER/SPECIALIST: routine in 1-2 weeks if not improving, sooner if worse RETURN TO EMERGENCY: if any worries or concerns ADDITIONAL SIGNATURE PCP: [ ] YES [ ] NO [ ] [...] STOOL/DIARRHEA. 11) DRESSING,POLYSKIN II 2 X 2.75IN JEFFERY#7511 USE/APPLY ACTIVE DRESSING(S) TO AFFECTED AREA(S) DIRECTED [...] 30 MINUTES BEFORE EATING. 17) GLUCOSE SENSOR 9DIAMOND BREN 3 USE SENSOR EVERY ACTIVE 2 WEEKS FOR BLOOD SUGAR MONITORING CHANGE SENSOR/SITE EVERY 14 DAYS. TO REPLACE SENSOR FOR ANY REASON OR FOR TECHNICAL HELP PLEASE CALL [facility] HELP DESK: -SPECIFIC PHONE NUMBER: [phone]). 18) LIDOCAINE 2.5/PRILOCAINE 2.5% CREAM APPLY LIGHTLY [...] UNTIL GONE. TAKE WITH FOOD. 22) NYSTATIN 532971 UNT/GM CREAM APPLY LIBERALLY TO ACTIVE AFFECTED [...] AREA(S) TWICE A DAY 30 Total Medications /es/ DUNIA MCLAIN MD STAFF PHYSICIAN Signed: 01/01/2024 22:31 DUNIA MCLAIN [facility]
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
--- OUTSIDE RECORDS SUMMARY | 2024-11-30 15:27 | XMS_ITS | Encounter Summary ---
Author Name [facility] ([place] Organization [facility] Address [address] [place] [address] Care Team Providers Care Demonstrator Sales Name Role Phone YONATHAN CORONEL Primary Care Provider OMEGA Bethea Unavailable Unavailable Selected Encounter This section includes the information on record at [place] for the Encounter. Date/Time Encounter Type Encounter Description Reason Provider Source Apr 25, 2024 12:30 PM MTMS BY PHARM ADDL 15 MIN CLINICAL PHARMACY ICD-10-CM Z79.899 [facility] [place] (current) drug therapy ADOLPH MACHUCA Yumi Encounter Template Text not used by [place] Assessments - Encounter Diagnoses This section includes the primary and secondary diagnoses documented for the Encounter. Date/Time Primary/Secondary Diagnosis Diagnosis Name Provider Source Apr 25, 2024 02:24 PM PRIMARY Other ferry terminal agent (current) drug therapy ADOLPH MACHUCA [facility] Apr 25, 2024 02:24 PM SECONDARY Fibromyalgia ADOLPH MACHUCA [facility] Apr 25, 2024 02:24 PM SECONDARY Low back pain, unspecified ADOLPH MACHUCA [facility] Apr 25, 2024 02:24 PM SECONDARY Unilateral primary osteoarthritis, right knee ADOLPH MACHUCA [facility] Plan of Treatment: Future Appointments (+ 6 months) and Future Tests (+/- 45 days) The Plan of Treatment section includes future care activities for the [facility] This section includes future appointments and future orders which are active, pending or scheduled. Future Appointments This section includes appointments that were scheduled to occur 6 months from the date of the Encounter, up to a maximum of 20 appointments. The data comes from all [place] treatment facilities. Appointment Date/Time Appointment Type Appointme nt Facility Name Apr 29, 2024 01:00 PM AMBULATORY - NONE [facility] Apr 30, 2024 03:00 PM AMBULATORY - PSYCHIATRY [facility] May 03, 2024 10:30 AM [facility] May 21, 2024 01:00 PM AMBULATORY - PSYCHIATRY [facility] May 31, 2024 10:30 AM AMBULATORY - SURGERY [facility] Jun 05, 2024 09:30 AM AMBULATORY - NONE . [facility] Jun 14, 2024 11:00 AM AMBULATORY - SURGERY [facility] Jun 17, 2024 03:00 PM AMBULATORY - MEDICINE [facility] Jun 25, 2024 03:00 PM AMBULATORY - PSYCHIATRY [facility] Jul 01, 2024 10:30 AM AMBULATORY - NONE [facility] Jul 08, 2024 10:30 AM AMBULATORY - REHAB MEDICIN E [facility] Jul 18, 2024 02:00 PM AMBULATORY - MEDICINE [facility] Jul 22, 2024 03:00 PM AMBULATORY - NONE [facility] Aug 02, 2024 01:30 PM AMBULATORY - SURGERY [facility] Aug 08, 2024 02:00 PM AMBULATORY - PSYCHIATRY [facility] Aug 09, 2024 02:00 PM AMBULATORY - SURGERY [facility] Aug 13, 2024 03:00 PM AMBULATORY - PSYCHIATRY [facility] Aug 27, 2024 09:30 AM AMBULATORY - REHAB MEDICIN E [facility] Sep 03, 2024 10:30 AM AMBULATORY - NONE [facility] Sep 11, 2024 11:00 AM AMBULATORY - REHAB MEDICIN E [facility] Lab Results: +/- 30 days of the encounter This section includes the Chemistry and Hematology Lab Results on record with [place] for the patient. Radiology Reports and Pathology Reports are provided separately, in subsequent sections. Lab Results This section contains the Chemistry/Hematology Results that were resulted 30 days before or 30 daysafter the date of the Encounter. Date/Time Source Result Type Result - Unit Interpretation Reference Range Specimen Type Comment Apr 20, 2024 11:39 AM [facility] GLUCOSE,BLOOD-poct (STL) BLOOD Specimen Type: BLOOD Comment: Test Performed by: [id number] Meter #: [id number] Ordering Provider: KIKI PINA Report Released Date/Time: Apr 20, 2024 12:07 PM Reporting Lab: [address] [address] Performing Lab: [address] [address] GLUCOSE,BLOOD-poct (STL) 266 mg/dL H 72-Apr 20, 2024 05:26 AM [facility] GLUCOSE,BLOOD-poct (STL) BLOOD Specimen Type: BLOOD Comment: Test Performed by: [id number] Meter #: [id number] Ordering Provider: KIKI PINA Report Released Date/Time: Apr 20, 2024 05:38 AM Reporting Lab: [address] [address] Performing Lab: [address] [address] GLUCOSE,BLOOD-poct (STL) 157 mg/dL H 72-Apr 19, 2024 08:45 PM [facility] GLUCOSE,BLOOD-poct (STL) BLOOD Specimen Type: BLOOD Comment: Test Performed by: [id number] Meter #: [id number] Ordering Provider: KIKI PINA Report Released Date/Time: Apr 19, 2024 10:10 PM Reporting Lab: [address] [address] Performing Lab: [address] [address] GLUCOSE,BLOOD-poct (STL) 232 mg/dL H 72-Apr 19, 2024 05:13 PM [facility] GLUCOSE,BLOOD-poct (STL) BLOOD Specimen Type: BLOOD Comment: Test Performed by: [id number] Meter #: [id number] Ordering Provider: KIKI PINA Report Released Date/Time: Apr 19, 2024 05:24 PM Reporting Lab: [address] [address] Performing Lab: [address] [address] GLUCOSE,BLOOD-poct (STL) 176 mg/dL H -Apr 19, 2024 03:32 PM [facility] GLUCOSE,BLOOD-poct (STL) BLOOD Specimen Type: BLOOD Comment: Test Performed by: [id number] Meter #: [id number] Ordering Provider: LAUREN MOREL Report Released Date/Time: Apr 19, 2024 03:43 PM Reporting Lab: [address] [address] Performing Lab: [address] [address] GLUCOSE,BLOOD-poct (STL) 155 mg/dL H 72-Apr 19, 2024 02:56 PM [facility] MRSA SURVL NARES DNA NARES Specimen Type: [...] Apr 19, 2024 04:55 PM Reporting Lab: [address] [address] Performing Lab: [place] [address] [facility] [address] MRSA SURVL NARES DNA Negative Negative Apr 19, 2024 10:33 AM [facility] GLUCOSE,BLOOD-poct (STL) BLOOD Specimen Type: BLOOD Comment: Test Performed by: [id number] Meter #: [id number] Ordering Provider: YONATHAN CORONEL Report Released Date/Time: Apr 19, 2024 10:50 AM Reporting Lab: [place] [address] [facility] [address] Performing Lab: [place] [address] [facility] [address] GLUCOSE,BLOOD-poct (L) 226 mg/dL H 72-99 Apr 08, 2024 03:28 PM [facility] PT/INR NEW (L-MA) PLASMA Specimen Type: PLAS MA Comment: ~For Test: BASIC METABOLIC PANEL ~pre-op Ordering Provider: NOAH SANCHEZ Report Released Date/Time: Apr 02, 2024 12:39 PM Reporting Lab: [place] [address] [facility] [address] Performing Lab: [place] [address] [facility] [address] PROTIME 12.5 s 9.4-12.5 INR VALUE 1.1 {INR} Apr 08, 2024 03:28 PM [facility] BASIC METABOLIC PANEL PLASMA Specimen Type: PL ASMA Comment: ~For Test: BASIC METABOLIC PANEL ~pre-op Ordering Provider: NOAH SANCHEZ Report Released Date/Time: Apr 02, 2024 12:39 PM Reporting Lab: [place] [address] [facility] [address] Performing Lab: [address] [address] CREATININE 1.59 mg/dL H 0.7-1.3 UREA NITROGEN 13.7 mg/dL 9.0-25.0 GLUCOSE 234 mg/dL H 72-99 SODIUM 139 meq/L 136-145 POTASSIUM 4.3 meq/L 3.5-5 CHLORIDE 104 meq/L 98-107 CARBON DIOXIDE 22 meq/L 22-31 CALCIUM 9.6 mg/dL 8.4-10.4 EGFR (CKD-EPI 2020) 50.6 >60 Apr 08, 2024 03:28 PM [facility] CBC BLOOD Specimen Type: BLOOD Comment: ~For Test: BASIC METABOLIC PANEL ~pre-op Ordering Provider: NOAH SANCHEZ Report Released Date/Time: Apr 02, 2024 12:39 PM Reporting Lab: [facility] [address] [facility] [address] Performing Lab: [facility] [address] [facility] [address] WBC 7.3 10*3/uL 3.6-11.2 RBC 5.23 10*6/uL [...] and tobacco- related health factors from the [place] facility where the Encounter took place. Current Smoking Status This section includes the most current smoking, or tobacco-related health factor, from the [place] facility where the Encounter took place. Date/Time Current Smoking Status Comment Facil ity Jul 04, 2023 01:09 PM VA-TOBACCO USE WI 30 MIN OF WAKEUP [facility] Tobacco Use History This section includes a history of the smoking, or tobacco-related health factors, that were collected on or before the date of the Encounter. The data comes from the [place] facility where the Encounter took place. Date/Time Smoking Status/Tobacco Use Comment F acility Jul 04, 2023 01:09 PM VA-TOBACCO USE ADVICE [facility] Jul 04, 2023 01:09 PM VA-TOBACCO USE INDUSTRIAL/ORGANIZATIONAL PSYCHOLOGIST NO [facility] Jul 04, 2023 01:09 PM VA-TOBACCO USE MED NO [facility] Jul 04, 2023 01:09 PM VA-TOBACCO USE WI 30 MIN OF WAKEUP [facility] Jul 04, 2023 01:09 PM VA-TOBACCO USER EVERY DAY [facility] Jul 28, 2022 01:00 PM VA-TOBACCO FORMER USER [facility] Jul 28, 2022 01:00 PM VA-TOBACCO QUIT 15 YRS OR MORE [facility] Jul 13, 2021 01:00 PM VA-TOBACCO DOESNT USE WI 30 MIN WAKEUP [facility] Jul 13, 2021 01:00 PM VA-TOBACCO USE 30 YEARS OR MORE [facility] Jul 13, 2021 01:00 PM VA-TOBACCO USE ADVICE [facility] Jul 13, 2021 01:00 PM VA-TOBACCO USE INDUSTRIAL/ORGANIZATIONAL PSYCHOLOGIST NO [facility] Jul 13, 2021 01:00 PM VA-TOBACCO USE MED NO [facility] Jul 13, 2021 01:00 PM VA-TOBACCO USER SOME DAYS [facility] May 20, 2020 03:30 PM VA-TOBACCO DOESNT USE WI 30 MIN WAKEUP [facility] May 20, 2020 03:30 PM VA-TOBACCO USE > 1 5 LESS THAN 30 YEARS [facility] May 20, 2020 03:30 PM VA-TOBACCO USE ADVICE [facility] May 20, 2020 03:30 PM VA-TOBACCO USE INDUSTRIAL/ORGANIZATIONAL PSYCHOLOGIST NO [facility] May 20, 2020 03:30 PM VA-TOBACCO USE MED NO [facility] May 20, 2020 03:30 PM VA-TOBACCO USER SOME DAYS [facility] Jun 26, 2018 11:30 AM VA-TOBACCO FORMER USER [facility] Jun 26, 2018 11:30 AM VA-TOBACCO QUIT 15 YRS OR MORE [facility] Mar 02, 2017 07:35 AM QUIT TOBACCO >7 YEARS AGO [facility] May 25, 2016 05:48 AM CURRENT TOBACCO USER [facility] May 25, 2016 05:48 AM TOBACCO MEDS OFFER ED BUT DECLINED [facility] Jun 23, 2015 02:29 PM QUIT TOBACCO >7 YEARS AGO [facility] Sep 12, 2014 06:15 AM CURRENT TOBACCO USER [facility] Sep 12, 2014 06:15 AM QUIT TOBACCO >7 YEARS AGO [facility] Sep 12, 2014 06:15 AM TOBACCO MEDS OFFER ED BUT DECLINED [facility] Jun 25, 2013 02:47 PM QUIT TOBACCO >7 YEARS AGO [facility] May 04, 2010 12:36 PM LIFETIME NON-USER OF TOBACCO [facility] Jul 30, 2009 11:12 AM CURRENT TOBACCO USER [facility] Mar 20, 2008 01:00 PM CURRENT TOBACCO USER [facility] Mar 20, 2008 01:[address] OP SMOKING CLINIC [facility] Mar 20, 2008 01:00 PM TOBACCO OFFERRED P T MEDS (PROVIDER) [facility] Mar 06, 2007 10:38 AM QUIT TOBACCO >7 YEARS AGO [facility] May 09, 2006 09:29 AM CURRENT TOBACCO USER [facility] Aug 27, 2004 10:41 AM CURRENT TOBACCO USER [facility] Aug 27, 2004 10:41 AM SMOKER <10 [facility] Advance Directives: All historical and current Section Date Range: From patient's date of to the date document was created. This section includes ALL of a patient's completed or amended [place] Advance and Rescinded Directives. The entries below indicate that a directive exists for the patient, but an actual copy is not included with this document. The data comes from all [place] facilities. Date Advance Directives Provider Source Oct 21, 2022 FRANKLIN ROTH [facility] Sep 23, 2004 ADVANCE DIRECTIVE EDILECJ [facility] May 24, 2004 ADVANCE DIRECTIVE SAADIAMITCH A . TREVA IS [facility] May 24, 2000 ADVANCE DIRECTIVE MICHELE C[address]ENO [facility] Nov 11, 1996 ADVANCE DIRECTIVE MAGGIE DRAKE [facility] December 08, 1995 ADVANCE DIRECTIVE NAATNAELKI [facility] Radiology Reports: +/- 30 [...] the Encounter. The data comes from all [place] treatment facilities. Date/Time Radiology Report Provider Source Apr 08, 2024 03:15 PM CHEST X-RAY, 2 VIE WS: BETTY HAASLE [id number] -[id number] M Exm Date: APR 08, 2024@15:15 Req Phys: NOAH SANCHEZ Loc: [place]-PRE-OP EVAL NURSING AM (Req Img Loc: [place]-MAIN RADIOLOGY SUITE Service: [facility], [facility] [address] [place] [address] (Case [id number] COMPLETE) CHEST X-RAY, 2 VIEWS (RAD Detailed) CPT:72616 Reason for Study: pre-op Clinical History: Report Status: Verified Date Reported: APR 08, 2024 Date Verified: APR 08, 2024 Warp Changer E-Sig:/ES/Franklin Hartley MD. FACR. Report: History: pre-op. Comparison: Prior chest examination-03/24/2023. Technique: PA and lateral views. Findings: No pulmonary consolidation, pleural effusion, pneumothorax, cardiomegaly or pulmonary edema is seen. Impression: No acute cardiopulmonary disease is seen. Primary Interpreting Staff: Franklin Hartley MD. FACR, Neuroradiologist (Warp Changer) /FRANKLIN KENDALL [facility] Pathology Reports: +/- 30 [...] the Encounter. The data comes from all [place] treatment facilities. Date/Time Pathology Report Provider Source [...] Performing Laboratory: Surgical Pathology Report Performed By: [facility] CLIA# [id number] [address] [address] $FTR - - - - - - - - - - - - - - - - - - - - - - - - - - - - - - - - - - - - - - - - (End of report) CHRISTY MALCOLM MD [facility] Date Apr 23, 2024 - - - - - - - - - - - - - - - - - - - - - - - - - - - - - - - - - - - - - - - - BETTY HAAS STANDARD FORM 515 ID:[id number] SEX:M :1970 AGE: 54 LOC:APFEE PCP: Yonathan Coronel, BRAKE OPERATOR /los/ CHRISTY MALCOLM Pathologist Signed: 04/23/2024 14:03 CHRISTY MALCOLM [facility] Apr 08, 2024 03:00 PM LR MICROBIOLOGY RE PORT: Accession [UID]: [id number] [[id number]] Received: Apr 08, 2024@15:27 Collection sample: URINE,CLEAN CATCH Collection date: Apr 08, 2024 15:00 Site/Specimen: URINE Provider: NOAH SANCHEZ Test(s) ordered: C&S URINE.................... . completed: Apr 09, 2024 22:40 * BACTERIOLOGY FINAL REPORT => Apr 09, 2024 22:47 TECH CODE: [id number] CULTURE RESULTS: STREP. AGALACTIAE, GRP. B - Quantity: >25,000 - <50,000 CFU/ML Comment: There will be no work up. Bacteriology Remark(s): -- RYAN 9/10/24 -- >25,000 - <50,000 CFU/ML S. AGAL - There will be no work up. <10,000 CFU/ML MIXED GRAM POSITIVE ORGANISM There will be no work up. =--=--=--=--=--=--=--=--= --=--=--=--=--=--=--=--=- -=--=--=--=--=--=--=--=-- =-- Performing Laboratory: Bacteriology Report Performed By: [facility] [address] [place] [address] CLIA# [id number] [address] [facility] [address] [place] [address] LUANA CINTRON [facility] Encounter Notes: All associated encounter notes This section contains the clinical notes associated to the Encounter. Date/Time Encounter Note(s) Provider Source Apr 25, 2024 03:08 PM ADDENDUM: LOCAL TITLE: Addendum STANDARD TITLE: ADDENDUM DATE OF NOTE: APR 25, 2024@15:08:07 ENTRY DATE: APR 25, 2024@15:08:08 AUTHOR: GRACIE BLACKMON COSIGNER: URGENCY: STATUS: COMPLETED Outpatient Mental Health Nursing Triage Telephone Contacted by Patient/Other: Patient Patient Identifiers: Full name and Date of Appointment Last scheduled appointment date:02/02/[address] [facility] [address] Link (resigned) Next scheduled appointment date:RTC order placed for Dr. Hanson Reason for call: Regarding the above Opioid note. [place] provider is no longer working for the [place]. Monique is aware. This freelance writer notified the of the new provider. Monique stated, I am doing fine, hurting a little. The [place] was asked directly and denied suicidal or homicidal ideation or any other emergent mental health concerns. He confirmed that he is aware of how to access emergency mental health services, should the need arise. Monique has this freelance writer's direct contact number and the call was transferred to [facility] for scheduling. Alerting additional signer for informational purpose. /los/ Gracie Blackmon RN Registered Nurse, [facility] Outpatient-[facility] Signed: 04/25/2024 15:15 Receipt Acknowledged By: 04/25/2024 15:19 /los/ Eugenio Frey M.D. Staff Psychiatrist, [facility] --- Original Document --- 04/23/24 OPIOID INTERDISCIPLINARY RISK REVIEW DATA-BASED STL: is a 54 year old MALE identified by the Stratified Tool for Opioid Risk Mitigation (STORM) dashboard who is being reviewed by an interdisciplinary team regarding the use of opioid therapy per policy. The information in this review is intended for the 's care team who have been added as additional signers on this note. Overview: 54 year old MALE with PMH including OA of R knee, CHASITY, QUIJANO, restrictive lung disease, back pain, cannabis use hx, fibromyalgia, and adjustment disorder. Patient was recently admitted to for procedure. Patient was discharged with oxycodone 5 mg tablets. Patient has had 3 ED visits and 2 [facility] hospitalizations in the past year. Patient has future pain and MH appointments scheduled. Current Pain Regimen: Acetaminophen 1000 mg Q6h PRN Cyclobenzaprine 10 mg TID PRN Diclofenac 1% gel Duloxetine 30 mg daily Ibuprofen 600 mg 4x daily Lidocaine 5% patch Oxycodone 5 mg Q6h PRN Pregabalin 200 mg AM and 300 mg PM Naltrexone 3 mg daily RECOMMENDATIONS FOR RISK MITIGATION AND USE OF UNIVERSAL PRECAUTIONS: - OEND -No naloxone kit ever filled, will reach out to patient for education and will send if patient interested. - PDMP Query -No non-VA findings. See separate note. - UDS -Most recent methadone panel appropriate. -Methadone panel not required if not on ferry terminal agent opioid therapy. - Consent for Penitentiary Opioid Therapy (LTOT): -Not required as patient is not on LTOT RECOMMENDATIONS FOR OTHER TREATMENT OPTIONS -Recommend consider referral to IPR program, if clinically appropriate -Obtain Vitamin B12 and Vitamin D levels as they can impact chronic pain -Medications, if clinically appropriate -Avoid opioid use with low dose naltrexone -Mental Health -Recommend continuing to follow with MH, if clinically appropriate -Recommend suicide safety plan should patient become acutely suicidal. Per STORM, is identified as VERY HIGH risk for suicide-related event or overdose in the next year. This tool takes into account mental health history, substance abuse history, medical conditions and current medications when calculating risk. RISK OF ADVERSE EVENTS & CLINICAL FACTORS THAT INCREASE RISK FOR PATIENT (include STORM data here): +++++++++++++++++++++++++++++ +++++++++++++++++++++++++++++ ++++++ Stratified Tool for Opioid Risk Mitigation(FERNY) Review Note +++++++++++++++++++++++++++++ +++++++++++++++++++++++++++++ ++++++ Date: 04/23/2024 3:10:26 PM Name: BETTY HAAS Last Four: [id number] Age: 54 Gender: Male Address: [address] [place] [address] PATIENT'S CURRENT RISK LEVEL AND CURRENT HIGH RISK FLAGS === STORM Model Risk Estimates Risk of suicide-related event or overdose in the next year: 29% (Very High - Active Opioid Rx) Risk of suicide-related event, overdose, fall or accident in the next 3 years: 60% (Very High - Active Opioid Rx) RIOSORD Risk Class: 3 RIOSORD Score: 37 REACH VET Currently Identified in REACH VET: No In REACH VET in the past 24 months: No High Risk Flags High Risk For Suicide: No Behavioral: No Missing Patient: No FACTORS CONTRIBUTING TO PATIENT'S RISK === Diagnosis Adverse Event: - Related to accidents - Related to falls Medical: - Chronic Pulmonary Dis - Diabetes, Complicated - Diabetes, Uncomplicated - Hypertension - Liver Disease - Neurological disorders - Other - Obesity - Sleep Apnea Mental Health: - Depression - Major Depressive Disorder - Other Mental Health per STORM paper - PTSD - Suicide or Overdose Related Event Medications Opioid: - OXYCODONE Kiki Pina([facility]) Pain Medications (Sedating): - DULOXETINE Federico Link([facility]) - PREGABALIN Yonathan Coronel([facility]) METHODS TO REDUCE PATIENT'S RISK Risk Mitigation Strategies: [X] MEDD < 90 (30 Day Avg) 30 [ ] Naloxone Kit (365 Days) [X] Timely Follow-up (90 Days) 04/19/2024 [X] Timely Drug Screen (NA) 09/12/2023 [X] Psychosocial Assessment (365 Days) 09/19/2023 [X] Psychosocial Tx (365 Days) 04/19/2024 [X] Bowel Regimen (365 Days) [X] PDMP (90 Days) 04/12/2024 [ ] Data-based Risk Review (365 Days) [ ] Suicide Safety Plan (365 Days) 09/14/2023 Declined [ ] Mandated Risk Mitigations Met Non-pharmacological Pain Treatments: [ ] Active Therapies [X] CIH Therapies 02/13/24 [X] Manager Safe 07/17/23 [ ] Occupational Therapy [ ] Pain Clinic [X] Physical Therapy/PM&R 07/17/23 [ ] Specialty Therapy [ ] Other Therapy APPOINTMENTS Last [facility] Contact [facility] - Emergency Room EMERGENCY DEPT 01/01/2024 07:02 PM - Primary Care Appointment PRIMARY CARE/MEDICINE 01/15/2024 11:15 AM - Appointment PTSD OUTPT RES SPEC PROG INDIV 03/26/2024 03:00 PM - Any Clinical Appointment PRE-SURG EVAL 04/19/2024 10:00 AM - Other Appointment 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 - INDIVIDUAL 04/20/2024 12:10 PM Future Appointments JOHANNY Delaney [facility] - Other Appointment [facility] 04/29/2024 01:00 PM - Appointment [facility] 04/29/2024 01:00 PM - Primary Care Appointment PRIMARY CARE/MEDICINE 07/18/2024 02:00 PM ASSIGNED PROVIDERS JOHANNY Delaney [facility] Yonathan Coronel [facility] Primary Care Provider [facility] PCP Gracie Blackmon ([facility] Registered Nurse [facility] - BHIP 4 SUPPLEMENTAL MEDICATION INFORMATION Non-VA Controlled Substance Prescriptions: This risk assessment is based on available information in the corporate data warehouse which may lag from CPRS (usually 1-2 days) and only includes information previously documented in the medical record. This risk assessment should be used as one element to inform an overall clinical treatment plan. Further assessment, reassessment, and treatment planning should be completed as clinically indicated by this 's established care teams. The calculated risk score is determined by both static and dynamic factors. Treatment planning should focus on providing the best whole person clinical care while aiming to reduce the risk of adverse events and should not aim at reducing the calculated risk score. +++++++++++++++++++++++++++++ +++++++++++++++++++++++++++++ +++++ Stratified Tool for Opioid Risk Mitigation (STORM) Review Note +++++++++++++++++++++++++++++ +++++++++++++++++++++++++++++ +++++ CURRENT MEDICAL PROBLEMS: 1) Abnormal results of liver function studies 2) Diverticulitis 3) Erectile dysfunction 4) Obesity 5) Chest pain 6) Sensory-neural hearing loss 7) Back pain (SNOMED CT 009343767) 8) Benign hypertension (SNOMED CT 24200089) 9) Convulsion 10) Male hypogonadism 11) Conversion disorder (SNOMED CT 232031478) 12) Testicular hypofunction 13) Osteoarthritis of right [...] EACH DAY *STABLE INSULIN THERAPY* Mar 2) ACETAMINOPHEN 500MG TAB TAKE TWO TABLETS BY MOUTH ACTIVE EVERY 6 HOURS NEEDED FOR PAIN CAUTION: DO NOT EXCEED 4000MG PER DAY ACETAMINOPHEN (APAP) FROM ALL MEDS. 3) ALBUTEROL 90MCG (CFC-F) 200D ORAL INHL INHALE 2 PUFFS ACTIVE BY ORAL INHALATION FOUR TIMES A DAY NEEDED FOR BREATHING. SHAKE WELL. RINSE MOUTHPIECE FREQUENTLY TO PREVENT CLOGGING. 4) BETAMETHASONE DIPROPIONATE 0.05% OINT APPLY LIGHTLY ACTIVE TO AFFECTED AREA(S) THREE TIMES A DAY (EXTERNAL USE ONLY) 5) CETIRIZINE HCL 10MG TAB TAKE ONE TABLET BY MOUTH ONCE ACTIVE A DAY FOR ALLERGY SYMPTOMS 6) CHOLECALCIF 50MCG (D3-2,000UNIT) TAB TAKE TWO TABLETS ACTIVE BY MOUTH ONCE A DAY FOR VITAMIN D DEFICIENCY. 7) CPD-NALTREXONE 3MG (LOW DOSE) CAP TAKE 1 CAPSULE BY ACTIVE (S) MOUTH ONCE A DAY 8) CYANOCOBALAMIN 100MCG TAB TAKE ONE TABLET BY MOUTH ACTIVE (S) ONCE A DAY FOR B12 SUPPLEMENTATION 9) CYCLOBENZAPRINE HCL 10MG TAB TAKE ONE TABLET BY MOUTH ACTIVE THREE TIMES A DAY NEEDED FOR MUSCLE SPASM MAY CAUSE DROWSINESS. DO NOT DRINK ALCOHOL WHILE TAKING THIS MEDICATION. 10) DEXTROSE 24GM/31GM SQUEEZE TUBE TAKE 1 TUBE BY MOUTH ACTIVE ONCE A DAY NEEDED REPEAT DOSE IF HYPOGLYCEMIA CONTINUES 15 MINUTES AFTER THE FIRST DOSE. 11) DICLOFENAC NA 1% TOP GEL APPLY 4 GM TO AFFECTED ACTIVE AREA(S) FOUR TIMES A DAY FOR PAIN/INFLAMMATION; NOT MORE THAN 16 GRAMS DAILY TO ANY LOWER EXTREMITY JOINT. NOT MORE THAN 8 GRAMS DAILY TO ANY UPPER EXTREMITY JOINT. MAX 32GM/DAY OVER ALL JOINTS. (MEASURE DOSE WITH RULER ATTACHED INSIDE BOX) 12) DOCUSATE NA 100MG CAP TAKE ONE CAPSULE BY MOUTH TWICE ACTIVE A DAY FOR SOFTENING STOOL HOLD FOR LOOSE STOOL/DIARRHEA. 13) DRESSING,POLYSKIN II 2 X 2.75IN JEFFERY#6537 USE/APPLY ACTIVE DRESSING(S) TO AFFECTED AREA(S) DIRECTED FOR USE WITH GLUCOSE SENSOR 14) DULOXETINE HCL 30MG EC CAP TAKE ONE CAPSULE BY MOUTH ACTIVE ONCE A DAY FOR PTSD/MOOD/ANXIETY/PAIN DO NOT ABRUPTLY DISCONTINUE MEDICATION. 15) EMPAGLIFLOZIN 25MG TAB TAKE ONE TABLET BY MOUTH ONCE ACTIVE A DAY 16) EZETIMIBE 10MG TAB TAKE ONE TABLET BY MOUTH ONCE A ACTIVE DAY TO LOWER CHOLESTEROL 17) GLIPIZIDE 5MG TAB TAKE ONE TABLET BY MOUTH TWO TIMES ACTIVE A DAY BEFORE MEALS TAKE 30 MINUTES BEFORE EATING. 18) GLUCOSE SENSOR FREESTYLE BREN 3 USE SENSOR EVERY ACTIVE 2 WEEKS FOR BLOOD SUGAR MONITORING CHANGE SENSOR/SITE EVERY 14 [address] REPLACE SENSOR FOR ANY REASON OR FOR TECHNICAL HELP PLEASE CALL [employer] DESK: -SPECIFIC PHONE NUMBER: ([phone]). 19) GLUCOSE SENSOR FREESTYLE BREN 3 PLUS USE SENSOR ACTIVE EVERY 15 DAYS FOR BLOOD SUGAR MONITORING CHANGE SENSOR/SITE EVERY 15 DAYS. TO REPLACE SENSOR FOR ANY REASON OR FOR TECHNICAL HELP PLEASE CALL MADS DESK: -SPECIFIC PHONE NUMBER: ([phone]). 20) IBUPROFEN 600MG TAB TAKE ONE TABLET BY MOUTH FOUR ACTIVE TIMES A DAY NEEDED FOR PAIN TAKE WITH FOOD. 21) LIDOCAINE 5% PATCH APPLY 1 PATCH TO SKIN SITE NIGHTLY ACTIVE NEEDED FOR PAIN. MAY USE 1-3 PATCHES. PATCHES MAY BE CUT TO FIT ONTO FEET. APPLY PATCH AND PRESS FIRMLY FOR 10-15 SECONDS. KEEP ON FOR 12 HOURS THEN REMOVE PATCH FOR 12 HOURS. 22) METFORMIN HCL 500MG 24HR SA TAB TAKE FOUR TABLETS BY ACTIVE MOUTH ONCE A DAY FOR BLOOD SUGAR CONTROL. TAKE WITH FOOD. AVOID ALCOHOL. DISCONTINUE BEFORE GETTING XRAY DYE. 23) OXYCODONE HCL 5MG TAB TAKE ONE TABLET BY MOUTH EVERY ACTIVE 6 HOURS NEEDED FOR POST-OPERATIVE PAIN MAY CAUSE CONSTIPATION 24) POLYETHYLENE GLYCOL 3350 ORAL PWDR MIX AND DRINK 1 ACTIVE CAPFUL BY MOUTH ONCE A DAY NEEDED FOR CONSTIPATION (MEASURE WITH CAP AND MIX IN 8 OZ OF WATER) 25) PRAZOSIN HCL 2MG CAP TAKE THREE CAPSULES BY MOUTH AT ACTIVE BEDTIME FOR NIGHTMARES MAY CAUSE DIZZINESS OR DROWSINESS. 26) PREGABALIN 100MG ORAL CAP TAKE TWO CAPSULES BY MOUTH ACTIVE EVERY MORNING AND TAKE THREE CAPSULES EVERY EVENING FOR FIBROMYALGIA *MAY CAUSE DROWSINESS* 27) SEMAGLUTIDE 2MG/0.75ML INJ PEN 3ML INJECT 2MG UNDER ACTIVE THE SKIN EVERY WEEK FOR DIABETES 28) SODIUM CHLORIDE 0.65% SOLN NASAL SPRAY USE 1 SPRAY ACTIVE INTO NOSTRIL(S) EVERY 4 HOURS NEEDED FOR NASAL CONGESTION 29) SULFAMETHOXAZOLE 800/TRIMETH 160MG TAB TAKE 1 TABLET ACTIVE BY MOUTH EVERY 12 HOURS NEEDED TAKE WITH WATER/AVOID SUNLIGHT. 30) TRAZODONE HCL 100MG TAB TAKE TWO TABLETS BY MOUTH AT ACTIVE BEDTIME FOR DEPRESSION Active Non-VA Medications Status 1) Non-VA TRIAMCINOLONE ACETONIDE 0.025% CREAM SPARINGLY ACTIVE TO AFFECTED AREA(S) TWICE A DAY 31 Total Medications CLINIC MEDICATIONS: No medications found. Past VA opioids/non opioids trialed: Baclofen 30 mg/day Capsaicin 0.075% cream Gabapentin 900 mg/day Lidocaine 5% ointment Meloxicam 7.5 mg/day Metaxalone 2400 mg/day Methocarbamol 2250 mg/day Naproxen 1000 mg/day Oxycodone/acetaminophen 60 mg/day Salonpas patches Tramadol 400 mg/day ALLERGIES: NIACIN, SIMVASTATIN, COREG 25MG TABLET, PRAVASTATIN, SHRIMP, ATORVASTATIN ROSUVASTATIN, LOVASTATIN, PITAVASTATIN RECENT LABS: AMPHET/METHAMPHETAMINE Negative ng/mL 09/12/2023 21:20 AMPHET/METHAMPHETAMINE Negative ng/mL 04/09/2021 12:46 BENZODIAZEPINES (STL) Negative ng/mL 04/09/2021 12:46 CANNABINOIDS Negative ng/mL 09/12/2023 21:20 CANNABINOIDS 55-POS ng/mL 04/09/2021 12:46 COCAINE METABOLITES Negative ng/mL 09/12/2023 21:20 COCAINE METABOLITES Negative ng/mL 04/09/2021 12:46 METHADONE Negative ng/mL 04/09/2021 12:46 OPIATES Negative ng/mL 09/12/2023 21:20 OPIATES Negative ng/mL 04/09/2021 12:46 OXYCODONE ([id number]-VI) Negative ng/mL 04/09/2021 12:46 CREATININE URINE/OTHERS 48.2 L mg/dL 09/12/2023 21:20 CREATININE URINE/OTHERS 61.5 L mg/dL 05/15/2023 15:42 CREATININE URINE/OTHERS 90.4 mg/dL 04/25/2022 14:43 ETHANOL Negative mg/dL 09/12/2023 21:20 ETHANOL Negative mg/dL 04/09/2021 12:46 VITAMIN D, 25-HYDROXY 44.3 ng/mL 12/14/2023 11:57 SODIUM 139 mEq/L 04/08/2024 15:28 POTASSIUM 4.3 [...] 15:28 EGFR (CKD-EPI 2020) 50.6 04/08/2024 15:28 HGA1C 6.8 H % 12/14/2023 11:57 HGA1C 8.0 H % 09/08/2023 13:43 HGA1C 7.7 H % 05/15/2023 15:37 HGA1C 7.2 H % 01/10/2023 14:51 HGA1C 6.9 H % 04/25/2022 14:43 B12 423 pg/mL 12/14/2023 11:58 TSH 1.176 uIU/mL 05/15/2023 15:37 est CrCl: 68.1mL/min 01/15/2024 12:36 Local Title: EKG CONSULT STL 98009.2 Ventricular Rate: 67 BPM 84122.3 Atrial Rate: 67 BPM 72235.4 P-R Interval: 190 ms 34335.5 QRS Duration: 132 ms 56942.6 Q-T Interval: 424 ms 60754 QTC Calculation(Bazett)448 ms 62690.12 Calculated P [place]: 56 degrees 99828.13 Calculated R [place]: 0 degrees 08092.14 Calculated T [place]: 12 degrees Normal sinus rhythm Right bundle branch block Abnormal ECG When compared with ECG of 25-NOV-2022 09:48, Left posterior fascicular block is no longer Present Providers present during review: Dr. Will Simpson - Mental Health Dr. Nory Bravo - Pain Psychology Dr. Silver Roth - Clinical Pharmacy Dr. Adolph Machuca - Clinical Pharmacy Dr. Sumanth Gamble - Facility PMOP Coordinator Time spent in chart review: 30 minutes PBM PharmD Pharmacotherapy Rem V12: PHARMACIST INTERVENTIONS: PAIN MANAGEMENT High risk assessment evaluation Ordering and/or interpretation of urine drug screen/serum toxicology screen Query of the [facility] Prescription Drug Monitoring Program (PDMP) /los/ Adolph Machuca PharmD, [facility] Clinical Erosion Control Coordinator - Pain Management Signed: 04/25/2024 14:26 Receipt Acknowledged By: * AWAITING SIGNATURE * TE ALTMAN * AWAITING SIGNATURE * WILL SIMPSON * AWAITING SIGNATURE * NORY BRAVO * AWAITING SIGNATURE * JOSE RAFAEL WHARTON 04/25/2024 15:00 /es/ FRANKLIN ROTH PHARM.DKena, [facility], [facility] CLINICAL AUTOMOTIVE SHOP FOREMAN - PAIN MANAGEMENT * AWAITING SIGNATURE * OMEGA ELI 04/25/2024 15:07 /es/ Gracie Blackmon RN Registered Nurse, [facility] * AWAITING SIGNATURE * SUMANTH GAMBLE * AWAITING SIGNATURE * YONATHAN CORONEL 04/25/2024 15:18 /es/ Eugenio Frey M.D. Staff Psychiatrist, [facility] GRACIE BLACKMON [facility] Apr 23, 2024 03:09 PM MEDICATION MGT NOT E: LOCAL TITLE: OPIOID INTERDISCIPLINARY RISK REVIEW DATA-BASED STL STANDARD TITLE: MEDICATION MGT NOTE DATE OF NOTE: APR 23, 2024@15:09 ENTRY DATE: APR 23, 2024@15:09:18 AUTHOR: ADOLPH MACHUCA EXP COSIGNER: URGENCY: STATUS: COMPLETED OPIOID INTERDISCIPLINARY RISK REVIEW DATA-BASED STL Has ADDENDA is a 54 year old MALE identified by the Stratified Tool for Opioid Risk Mitigation (STORM) dashboard who is being reviewed by an interdisciplinary team regarding the use of opioid therapy per policy. The information in this review is intended for the 's care team who have been added as additional signers on this note. Overview: 54 year old MALE with PMH including OA of R knee, CHASITY, QUIJANO, restrictive lung disease, back pain, cannabis use hx, fibromyalgia, and adjustment disorder. Patient was recently admitted to for procedure. Patient was discharged with oxycodone 5 mg tablets. Patient has had 3 ED visits and 2 [facility] hospitalizations in the past year. Patient has future pain and MH appointments scheduled. Current Pain Regimen: Acetaminophen 1000 mg Q6h PRN Cyclobenzaprine 10 mg TID PRN Diclofenac 1% gel Duloxetine 30 mg daily Ibuprofen 600 mg 4x daily Lidocaine 5% patch Oxycodone 5 mg Q6h PRN Pregabalin 200 mg AM and 300 mg PM Naltrexone 3 mg daily RECOMMENDATIONS FOR RISK MITIGATION AND USE OF UNIVERSAL PRECAUTIONS: - OEND -No naloxone kit ever filled, will reach out to patient for education and will send if patient interested. - PDMP Query -No non-VA findings. See separate note. - UDS -Most recent methadone panel appropriate. -Methadone panel not required if not on ferry terminal agent opioid therapy. - Consent for Penitentiary Opioid Therapy (LTOT): -Not required as patient is not on LTOT RECOMMENDATIONS FOR OTHER TREATMENT OPTIONS -Recommend consider referral to IPR program, if clinically appropriate -Obtain Vitamin B12 and Vitamin D levels as they can impact chronic pain -Medications, if clinically appropriate -Avoid opioid use with low dose naltrexone -Mental Health -Recommend continuing to follow with MH, if clinically appropriate -Recommend suicide safety plan should patient become acutely suicidal. Per STORM, is identified as VERY HIGH risk for suicide-related event or overdose in the next year. This tool takes into account mental health history, substance abuse history, medical conditions and current medications when calculating risk. RISK OF ADVERSE EVENTS & CLINICAL FACTORS THAT INCREASE RISK FOR PATIENT (include STORM data here): +++++++++++++++++++++++++++++ +++++++++++++++++++++++++++++ ++++++ Stratified Tool for Opioid Risk Mitigation(STORM) Review Note +++++++++++++++++++++++++++++ +++++++++++++++++++++++++++++ ++++++ Date: 04/23/2024 3:10:26 PM Name: BETTY HAAS Last Four: 9482 Age: 54 Gender: Male Address: [address] [place] [id number] PATIENT'S CURRENT RISK LEVEL AND CURRENT HIGH RISK FLAGS === STORM Model Risk Estimates Risk of suicide-related event or overdose in the next year: 29% (Very High - Active Opioid Rx) Risk of suicide-related event, overdose, fall or accident in the next 3 years: 60% (Very High - Active Opioid Rx) RIOSORD Risk Class: 3 RIOSORD Score: 37 REACH VET Currently Identified in REACH VET: No In REACH VET in the past 24 months: No High Risk Flags High Risk For Suicide: No Behavioral: No Missing Patient: No FACTORS CONTRIBUTING TO PATIENT'S RISK === Diagnosis Adverse Event: - Related to accidents - Related to falls Medical: - Chronic Pulmonary Dis - Diabetes, Complicated - Diabetes, Uncomplicated - Hypertension - Liver Disease - Neurological disorders - Other - Obesity - Sleep Apnea Mental Health: - Depression - Major Depressive Disorder - Other Mental Health per STORM paper - PTSD - Suicide or Overdose Related Event Medications Opioid: - OXYCODONE Kiki Pina([facility]) Pain Medications (Sedating): - DULOXETINE Federico Link([facility]) - PREGABALIN Yonathan Coronel([facility]) METHODS TO REDUCE PATIENT'S RISK Risk Mitigation Strategies: [X] MEDD < 90 (30 Day Avg) 30 [ ] Naloxone Kit (365 Days) [X] Timely Follow-up (90 Days) 04/19/2024 [X] Timely Drug Screen (NA) 09/12/2023 [X] Psychosocial Assessment (365 Days) 09/19/2023 [X] Psychosocial Tx (365 Days) 04/19/2024 [X] Bowel Regimen (365 Days) [X] PDMP (90 Days) 04/12/2024 [ ] Data-based Risk Review (365 Days) [ ] Suicide Safety Plan (365 Days) 09/14/2023 Declined [ ] Mandated Risk Mitigations Met Non-pharmacological Pain Treatments: [ ] Active Therapies [X] CIH Therapies 02/13/24 [X] Manager Safe 07/17/23 [ ] Occupational Therapy [ ] Pain Clinic [X] Physical Therapy/PM&R 07/17/23 [ ] Specialty Therapy [ ] Other Therapy APPOINTMENTS Last VA Contact JOHANNY Delaney [facility] - Emergency Room EMERGENCY DEPT 01/01/2024 07:02 PM - Primary Care Appointment PRIMARY CARE/MEDICINE 01/15/2024 11:15 AM - Appointment PTSD OUTPT RES SPEC PROG INDIV 03/26/2024 03:00 PM - Any Clinical Appointment PRE-SURG EVAL 04/19/2024 10:00 AM - Other Appointment 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 - INDIVIDUAL 04/20/2024 12:10 PM Future Appointments JOHANNY Delaney [facility] - Other Appointment [facility] 04/29/2024 01:00 PM - App[facility]ment [facility] 04/29/2024 01:00 PM - Primary Care Appointment PRIMARY CARE/MEDICINE 07/18/2024 02:00 PM ASSIGNED PROVIDERS BannerJOHANNY Adame Sarah T - Primary Care Provider [facility]PACT E12 PCP Gracie Blackmon ([facility]) Registered Nurse KO [facility] - BHIP 4 SUPPLEMENTAL MEDICATION INFORMATION Non-VA Controlled Substance Prescriptions: This risk assessment is based on available information in the corporate data warehouse which may lag from CPRS (usually 1-2 days) and only includes information previously documented in the medical record. This risk assessment should be used as one element to inform an overall clinical treatment plan. Further assessment, reassessment, and treatment planning should be completed as clinically indicated by this 's established care teams. The calculated risk score is determined by both static and dynamic factors. Treatment planning should focus on providing the best whole person clinical care while aiming to reduce the risk of adverse events and should not aim at reducing the calculated risk score. +++++++++++++++++++++++++++++ +++++++++++++++++++++++++++++ +++++ Stratified Tool for Opioid Risk Mitigation (STORM) Review Note +++++++++++++++++++++++++++++ +++++++++++++++++++++++++++++ +++++ CURRENT MEDICAL PROBLEMS: 1) Abnormal results of liver function studies 2) Diverticulitis 3) Erectile dysfunction 4) Obesity 5) Chest pain 6) Sensory-neural hearing loss 7) Back pain (SNOMED CT 236120277) 8) Benign hypertension (SNOMED CT 10449042) 9) Convulsion 10) Male hypogonadism 11) Conversion disorder (SNOMED CT 919232373) 12) Testicular hypofunction 13) Osteoarthritis of right [...] EACH DAY *STABLE INSULIN THERAPY* Mar 2) ACETAMINOPHEN 500MG TAB TAKE TWO TABLETS BY MOUTH ACTIVE EVERY 6 HOURS NEEDED FOR PAIN CAUTION: DO NOT EXCEED 4000MG PER DAY ACETAMINOPHEN (APAP) FROM ALL MEDS. 3) ALBUTEROL 90MCG (CFC-F) 200D ORAL INHL INHALE 2 PUFFS ACTIVE BY ORAL INHALATION FOUR TIMES A DAY NEEDED FOR BREATHING. SHAKE WELL. RINSE MOUTHPIECE FREQUENTLY TO PREVENT CLOGGING. 4) BETAMETHASONE DIPROPIONATE 0.05% OINT APPLY LIGHTLY ACTIVE TO AFFECTED AREA(S) THREE TIMES A DAY (EXTERNAL USE ONLY) 5) CETIRIZINE HCL 10MG TAB TAKE ONE TABLET BY MOUTH ONCE ACTIVE A DAY FOR ALLERGY SYMPTOMS 6) CHOLECALCIF 50MCG (D3-2,000UNIT) TAB TAKE TWO TABLETS ACTIVE BY MOUTH ONCE A DAY FOR VITAMIN D DEFICIENCY. 7) CPD-NALTREXONE 3MG (LOW DOSE) CAP TAKE 1 CAPSULE BY ACTIVE (S) MOUTH ONCE A DAY 8) CYANOCOBALAMIN 100MCG TAB TAKE ONE TABLET BY MOUTH ACTIVE (S) ONCE A DAY FOR B12 SUPPLEMENTATION 9) CYCLOBENZAPRINE HCL 10MG TAB TAKE ONE TABLET BY MOUTH ACTIVE THREE TIMES A DAY NEEDED FOR MUSCLE SPASM MAY CAUSE DROWSINESS. DO NOT DRINK ALCOHOL WHILE TAKING THIS MEDICATION. 10) DEXTROSE 24GM/31GM SQUEEZE TUBE TAKE 1 TUBE BY MOUTH ACTIVE ONCE A DAY NEEDED REPEAT DOSE IF HYPOGLYCEMIA CONTINUES 15 MINUTES AFTER THE FIRST DOSE. 11) DICLOFENAC NA 1% TOP GEL APPLY 4 GM TO AFFECTED ACTIVE AREA(S) FOUR TIMES A DAY FOR PAIN/INFLAMMATION; NOT MORE THAN 16 GRAMS DAILY TO ANY LOWER EXTREMITY JOINT. NOT MORE THAN 8 GRAMS DAILY TO ANY UPPER EXTREMITY JOINT. MAX 32GM/DAY OVER ALL JOINTS. (MEASURE DOSE WITH RULER ATTACHED INSIDE BOX) 12) DOCUSATE NA 100MG CAP TAKE ONE CAPSULE BY MOUTH TWICE ACTIVE A DAY FOR SOFTENING STOOL HOLD FOR LOOSE STOOL/DIARRHEA. 13) DRESSING,POLYSKIN II 2 X 2.75IN JEFFERY#2156 USE/APPLY ACTIVE DRESSING(S) TO AFFECTED AREA(S) DIRECTED FOR USE WITH GLUCOSE SENSOR 14) DULOXETINE HCL 30MG EC CAP TAKE ONE CAPSULE BY MOUTH ACTIVE ONCE A DAY FOR PTSD/MOOD/ANXIETY/PAIN DO NOT ABRUPTLY DISCONTINUE MEDICATION. 15) EMPAGLIFLOZIN 25MG TAB TAKE ONE TABLET BY MOUTH ONCE ACTIVE A DAY 16) EZETIMIBE 10MG TAB TAKE ONE TABLET BY MOUTH ONCE A ACTIVE DAY TO LOWER CHOLESTEROL 17) GLIPIZIDE 5MG TAB TAKE ONE TABLET BY MOUTH TWO TIMES ACTIVE A DAY BEFORE MEALS TAKE 30 MINUTES BEFORE EATING. 18) GLUCOSE SENSOR FREESTYLE BREN 3 USE SENSOR EVERY ACTIVE 2 WEEKS FOR BLOOD SUGAR MONITORING CHANGE SENSOR/SITE EVERY 14 DAYS. TO REPLACE SENSOR FOR ANY REASON OR FOR TECHNICAL HELP PLEASE CALL [employer]: -SPECIFIC PHONE NUMBER: [phone]). 19) GLUCOSE SENSOR FREESTYLE BREN 3 PLUS USE SENSOR ACTIVE EVERY 15 DAYS FOR BLOOD SUGAR MONITORING CHANGE SENSOR/SITE EVERY 15 DAYS. TO REPLACE SENSOR FOR ANY REASON OR FOR TECHNICAL HELP PLEASE CALL [employer]: -SPECIFIC PHONE NUMBER: [phone]). 20) IBUPROFEN 600MG TAB TAKE ONE TABLET BY MOUTH FOUR ACTIVE TIMES A DAY NEEDED FOR PAIN TAKE WITH FOOD. 21) LIDOCAINE 5% PATCH APPLY 1 PATCH TO SKIN SITE NIGHTLY ACTIVE NEEDED FOR PAIN. MAY USE 1-3 PATCHES. PATCHES MAY BE CUT TO FIT ONTO FEET. APPLY PATCH AND PRESS FIRMLY FOR 10-15 SECONDS. KEEP ON FOR 12 HOURS THEN REMOVE PATCH FOR 12 HOURS. 22) METFORMIN HCL 500MG 24HR SA TAB TAKE FOUR TABLETS BY ACTIVE MOUTH ONCE A DAY FOR BLOOD SUGAR CONTROL. TAKE WITH FOOD. AVOID ALCOHOL. DISCONTINUE BEFORE GETTING XRAY DYE. 23) OXYCODONE HCL 5MG TAB TAKE ONE TABLET BY MOUTH EVERY ACTIVE 6 HOURS NEEDED FOR POST-OPERATIVE PAIN MAY CAUSE CONSTIPATION 24) POLYETHYLENE GLYCOL 3350 ORAL PWDR MIX AND DRINK 1 ACTIVE CAPFUL BY MOUTH ONCE A DAY NEEDED FOR CONSTIPATION (MEASURE WITH CAP AND MIX IN 8 OZ OF WATER) 25) PRAZOSIN HCL 2MG CAP TAKE THREE CAPSULES BY MOUTH AT ACTIVE BEDTIME FOR NIGHTMARES MAY CAUSE DIZZINESS OR DROWSINESS. 26) PREGABALIN 100MG ORAL CAP TAKE TWO CAPSULES BY MOUTH ACTIVE EVERY MORNING AND TAKE THREE CAPSULES EVERY EVENING FOR FIBROMYALGIA *MAY CAUSE DROWSINESS* 27) SEMAGLUTIDE 2MG/0.75ML INJ PEN 3ML INJECT 2MG UNDER ACTIVE THE SKIN EVERY WEEK FOR DIABETES 28) SODIUM CHLORIDE 0.65% SOLN NASAL SPRAY USE 1 SPRAY ACTIVE INTO NOSTRIL(S) EVERY 4 HOURS NEEDED FOR NASAL CONGESTION 29) SULFAMETHOXAZOLE 800/TRIMETH 160MG TAB TAKE 1 TABLET ACTIVE BY MOUTH EVERY 12 HOURS NEEDED TAKE WITH WATER/AVOID SUNLIGHT. 30) TRAZODONE HCL 100MG TAB TAKE TWO TABLETS BY MOUTH AT ACTIVE BEDTIME FOR DEPRESSION Active Non-VA Medications Status 1) Non-VA TRIAMCINOLONE ACETONIDE 0.025% CREAM SPARINGLY ACTIVE TO AFFECTED AREA(S) TWICE A DAY 31 Total Medications CLINIC MEDICATIONS: No medications found. Past VA opioids/non opioids trialed: Baclofen 30 mg/day Capsaicin 0.075% cream Gabapentin 900 mg/day Lidocaine 5% ointment Meloxicam 7.5 mg/day Metaxalone 2400 mg/day Methocarbamol 2250 mg/day Naproxen 1000 mg/day Oxycodone/acetaminophen 60 mg/day Salonpas patches Tramadol 400 mg/day ALLERGIES: NIACIN, SIMVASTATIN, COREG 25MG TABLET, PRAVASTATIN, SHRIMP, ATORVASTATIN ROSUVASTATIN, LOVASTATIN, PITAVASTATIN RECENT LABS: AMPHET/METHAMPHETAMINE Negative ng/mL 09/12/2023 21:20 AMPHET/METHAMPHETAMINE Negative ng/mL 04/09/2021 12:46 BENZODIAZEPINES (STL) Negative ng/mL 04/09/2021 12:46 CANNABINOIDS Negative ng/mL 09/12/2023 21:20 CANNABINOIDS 55-POS ng/mL 04/09/2021 12:46 COCAINE METABOLITES Negative ng/mL 09/12/2023 21:20 COCAINE METABOLITES Negative ng/mL 04/09/2021 12:46 METHADONE Negative ng/mL 04/09/2021 12:46 OPIATES Negative ng/mL 09/12/2023 21:20 OPIATES Negative ng/mL 04/09/2021 12:46 OXYCODONE (TWTKA-JOA-JA) Negative ng/mL 04/09/2021 12:46 CREATININE URINE/OTHERS 48.2 L mg/dL 09/12/2023 21:20 CREATININE URINE/OTHERS 61.5 L mg/dL 05/15/2023 15:42 CREATININE URINE/OTHERS 90.4 mg/dL 04/25/2022 14:43 ETHANOL Negative mg/dL 09/12/2023 21:20 ETHANOL Negative mg/dL 04/09/2021 12:46 VITAMIN D, 25-HYDROXY 44.3 ng/mL 12/14/2023 11:57 SODIUM 139 mEq/L 04/08/2024 15:28 POTASSIUM 4.3 [...] 15:28 EGFR (CKD-EPI 2020) 50.6 04/08/2024 15:28 HGA1C 6.8 H % 12/14/2023 11:57 HGA1C 8.0 H % 09/08/2023 13:43 HGA1C 7.7 H % 05/15/2023 15:37 HGA1C 7.2 H % 01/10/2023 14:51 HGA1C 6.9 H % 04/25/2022 14:43 B12 423 pg/mL 12/14/2023 11:58 TSH 1.176 uIU/mL 05/15/2023 15:37 est CrCl: 68.1mL/min 01/15/2024 12:36 Local Title: EKG CONSULT STL 05135.2 Ventricular Rate: 67 BPM 09029.3 Atrial Rate: 67 BPM 29305.4 P-R Interval: 190 ms 85081.5 QRS Duration: 132 ms 20363.6 Q-T Interval: 424 ms 54516 QTC Calculation(Bazett)448 ms 49560.12 Calculated P [place]: 56 degrees 43531.13 Calculated R [place]: 0 degrees 56084.14 Calculated T [place]: 12 degrees Normal sinus rhythm Right bundle branch block Abnormal ECG When compared with ECG of 25-NOV-2022 09:48, Left posterior fascicular block is no longer Present Providers present during review: Dr. Will Simpson - Mental Health Dr. Nory Bravo - Pain Psychology Dr. Silver Roth - Clinical Pharmacy Dr. Adolph Machuca - Clinical Pharmacy Dr. Sumanth Gamble - [facility] PMOP Coordinator Time spent in chart review: 30 minutes PBM PharmD Pharmacotherapy Rem V12: PHARMACIST INTERVENTIONS: PAIN MANAGEMENT High risk assessment evaluation Ordering and/or interpretation of urine drug screen/serum toxicology screen Query of the [facility] Prescription Drug Monitoring Program (PDMP) /los/ Adolph Machuca PharmD, [facility] Clinical Erosion Control Coordinator - Pain Management Signed: 04/25/2024 14:26 Receipt Acknowledged By: 04/30/2024 09:52 /los/ MARLEEN CODYN-MANNY URIAS- 04/26/2024 09:29 /es/ Will Simpson MD Staff Psychiatrist 04/26/2024 07:45 /es/ NORY BRAVO Staff Psychologist, [facility] 04/26/2024 10:14 /es/ JOSE RAFAEL WHARTON MD STAFF PHYSICIAN 04/25/2024 15:00 /es/ FRANKLIN ROTH PHARM.D., BCPS, BCACP CLINICAL AUTOMOTIVE SHOP FOREMAN - PAIN MANAGEMENT 04/25/2024 15:40 /es/ OMEGA ELI, MASSIMO, CEMENT BOAT AND BARGE LOADER-C, TITLE SEARCH MANAGER NURSE PRACTITIONER RESIDENT 04/25/2024 15:07 /es/ Gracie Blackmon, RN Registered Nurse, [facility] Outpatient-[facility] 04/29/2024 15:44 /es/ SUMANTH GAMBLE, ROBIN, BCACP, [facility] PMOP Coordinator 04/26/2024 06:21 /es/ Yonathan Coronel, [facility] NURSE PRACTITIONER 04/25/2024 15:18 /es/ Eugenio Frey M.D. Staff Psychiatrist, [facility] 04/25/2024 ADDENDUM STATUS: COMPLETED Outpatient Mental Health Nursing Triage Telephone Contacted by Patient/Other: Patient Patient Identifiers: Full name and Date of Appointment Last scheduled appointment date:02/02/[address] Link (resigned) Next scheduled appointment date:RTC order placed for Dr. Hanson Reason for call: Regarding the above Opioid note. [place] [facility] provider is no longer working for the [place]. [place] is aware. This freelance writer notified the of the new provider. [place] stated, I am doing fine, hurting a little. The was asked directly and denied suicidal or homicidal ideation or any other emergent mental health concerns. He confirmed that he is aware of how to access emergency mental health services, should the need arise. [place] has this freelance writer's direct contact number and the call was transferred to [facility] for scheduling. Alerting additional signer for informational purpose. /es/ Gracie Blackmon, RN Registered Nurse, [facility] Outpatient- Signed: 04/25/2024 15:15 Receipt Acknowledged By: 04/25/2024 15:19 /es/ Eugenio Frey M.D. Staff Psychiatrist, [facility] ADOLPH MACHUCA [facility] Apr 23, 2024 03:08 PM ACCOUNTING OF DISC LOSURES NOTE: LOCAL TITLE: STATE PRESCRIPTION DRUG MONITORING PROGRAM STANDARD TITLE: ACCOUNTING OF DISCLOSURES NOTE DATE OF NOTE: APR 23, 2024@15:08:59 ENTRY DATE: APR 23, 2024@15:08:59 AUTHOR: ADOLPH MACHUCA EXP COSIGNER: URGENCY: STATUS: COMPLETED This PDMP query was submitted by Adolph Machuca [facility]. The clinical justification for this PDMP query is to review controlled substances prescribed outside of the [facility], and any additional information that may become available, as an important component of standard clinical care, and in accordance with [facility] policy. Patient information was shared with the [employer] [place]. No prescription(s) for controlled substances outside the [facility] were found in the last 90 days. /los/ Adolph Machuca PharmD, BCPS Clinical Erosion Control Coordinator - Pain Management Signed: 04/25/2024 14:27 ADOLPH MACHUCA [facility]
--- OUTSIDE RECORDS SUMMARY | 2024-11-30 15:28 | XMS_ITS | Encounter Summary ---
Author Name [facility] Organization [facility] [place] Address [address] [place] [address] Care Team Providers Care Bulk Coolers Installer Name Role Phone YONATHAN LINDSAY Primary Care Provider OMEGA Bethea Unavailable Unavailable Selected Encounter This section includes the information on record at [place] for the Encounter. Date/Time Encounter Type Encounter Description Reason Provider Source November 29, 2024 11:15 AM MTMS BY PHARM EST 15 MIN TELEPHONE/ANCILLAR Y ICD-10-CM Z79.899 Other fpc (current) drug therapy FRANKLIN ROTH IHYumi Encounter Template Text not used by [place] Assessments - Encounter Diagnoses This section includes the primary and secondary diagnoses documented for the Encounter. Date/Time Primary/Secondary Diagnosis Diagnosis Name Provider Source November 29, 2024 11:15 AM PRIMARY Other long term acute care registered nurse (current) drug therapy FRANKLIN ROTH [facility] November 29, 2024 11:15 AM SECONDARY Fibromyalgia FRANKLIN ROTH [facility] November 29, 2024 11:15 AM SECONDARY Low back pain, unspecified FRANKLIN ROTH [facility] November 29, 2024 11:15 AM SECONDARY Type 2 diabetes mellitus with diabetic neuropathy, unsp FRANKLIN ROTH [facility] Plan of Treatment: Future Appointments (+ 6 months) and Future Tests (+/- 45 days) The Plan of Treatment section includes future care activities for the patient from all [place] treatmentfacilities. This section includes future appointments and future orders which are active, pending or scheduled. Future Appointments This section includes appointments that were scheduled to occur 6 months from the date of the Encounter, up to a maximum of 20 appointments. The data comes from all [place] treatment facilities. Appointment Date/Time Appointment Type Appointme nt Facility Name December 16, 2024 02:30 PM AMBULATORY - MEDICINE [facility] December 17, 2024 02:00 PM AMBULATORY - PSYCHIATRY [facility] Jan 13, 2025 11:15 AM AMBULATORY - MEDICINE [facility] Feb 13, 2025 02:00 PM AMBULATORY - MEDICINE [facility] Mar 24, 2025 10:30 AM AMBULATORY - NONE [facility] Apr 11, 2025 11:00 AM AMBULATORY - MEDICINE [facility] Lab Results: +/- 30 days of the encounter This section includes the Chemistry and Hematology Lab Results on record with [place] for the patient. Radiology Reports and Pathology Reports are provided separately, in subsequent sections. Lab Results This section contains the Chemistry/Hematology Results that were resulted 30 days before or 30 daysafter the date of the Encounter. Date/Time Source Result Type Result - Unit Interpretation Reference Range Specimen Type Comment Nov 13, 2024 02:35 PM [facility] HGA1C BLOOD Specimen Type: BLOOD No comment entered. Ordering Provider: RAKEL TORRES Report Released Date/Time: Nov 13, 2024 02:28 PM Reporting Lab: [facility] [address] [address] Performing Lab: [facility] [address] [facility] [address] HGA1C 7.5 H 4.0-6.0 Nov 13, 2024 02:35 PM [facility] VITAMIN D, 25-HYDROXY SERUM Specimen Type: SE RUM No comment entered. Ordering Provider: RAKEL TORRES Report Released Date/Time: Nov 13, 2024 02:33 PM Reporting Lab: [place] [address] [facility] [address] Performing Lab: [facility] [address] [facility] [address] VITAMIN D, 25-HYDROXY 35.4 ng/mL 30- Social History: Smoking Status (Most current) and Tobacco Use (All prior to encounter date) This section includes the most current, and the historical, smoking and tobacco- related health factors from the [place] facility where the Encounter took place. Current Smoking Status This section includes the most current smoking, or tobacco-related health factor, from the [place] facility where the Encounter took place. Date/Time Current Smoking Status Comment Facil ity Jul 18, 2024 02:00 PM VA-TOBACCO USE BREE E DAYS OTHER TYPE [facility] Tobacco Use History This section includes a history of the smoking, or tobacco-related health factors, that were collected on or before the date of the Encounter. The data comes from the [place] facility where the Encounter took place. Date/Time Smoking Status/Tobacco Use Comment F acility Jul 18, 2024 02:00 PM VA-TOBACCO SCREEN FOLLOW-UP [facility] Jul 18, 2024 02:00 PM VA-TOBACCO USE ADVICE [facility] Jul 18, 2024 02:00 PM VA-TOBACCO USE ROLL CUTTER NO [facility] Jul 18, 2024 02:00 PM VA-TOBACCO USE MED NO [facility] Jul 18, 2024 02:00 PM VA-TOBACCO USE BREE E DAYS OTHER TYPE [facility] Jul 18, 2024 02:00 PM VA-TOBACCO USE BREE E DAYS SMOKELESS [facility] Jul 04, 2023 01:09 PM VA-TOBACCO USE > 1 5 LESS THAN 30 YEARS [facility] Jul 04, 2023 01:09 PM VA-TOBACCO USE ADVICE [facility] Jul 04, 2023 01:09 PM VA-TOBACCO USE ROLL CUTTER NO [facility] Jul 04, 2023 01:09 PM VA-TOBACCO USE MED NO [facility] Jul 04, 2023 01:09 PM VA-TOBACCO USE WI 30 MIN OF WAKEUP [facility] Jul 04, 2023 01:09 PM VA-TOBACCO USER EVERY DAY [facility] Jul 28, 2022 01:00 PM VA-TOBACCO FORMER USER [facility] Jul 28, 2022 01:00 PM VA-TOBACCO QUIT 15 YRS OR MORE [facility] Jul 13, 2021 01:00 PM VA-TOBACCO DOESNT USE WI 30 MIN WAKEUP [facility] Jul 13, 2021 01:00 PM VA-TOBACCO USE 30 YEARS OR MORE [facility] Jul 13, 2021 01:00 PM VA-TOBACCO USE ADVICE [facility] Jul 13, 2021 01:00 PM VA-TOBACCO USE ROLL CUTTER NO [facility] Jul 13, 2021 01:00 PM VA-TOBACCO USE MED NO [facility] Jul 13, 2021 01:00 PM VA-TOBACCO USER SOME DAYS [facility] May 20, 2020 03:30 PM VA-TOBACCO DOESNT USE WI 30 MIN WAKEUP [facility] May 20, 2020 03:30 PM VA-TOBACCO USE > 1 5 LESS THAN 30 YEARS [facility] May 20, 2020 03:30 PM VA-TOBACCO USE ADVICE [facility] May 20, 2020 03:30 PM VA-TOBACCO USE ROLL CUTTER NO [facility] May 20, 2020 03:30 PM VA-TOBACCO USE MED NO [facility] May 20, 2020 03:30 PM VA-TOBACCO USER SOME DAYS [facility] Jun 26, 2018 11:30 AM VA-TOBACCO FORMER USER [facility] Jun 26, 2018 11:30 AM VA-TOBACCO QUIT 15 YRS OR MORE [facility] Mar 02, 2017 07:35 AM QUIT TOBACCO >7 YEARS AGO [facility] May 25, 2016 05:48 AM CURRENT TOBACCO USER [facility] May 25, 2016 05:48 AM TOBACCO MEDS OFFER ED BUT DECLINED [facility] Jun 23, 2015 02:29 PM QUIT TOBACCO >7 YEARS AGO [facility] Sep 12, 2014 06:15 AM CURRENT TOBACCO USER [facility] Sep 12, 2014 06:15 AM QUIT TOBACCO >7 YEARS AGO [facility] Sep 12, 2014 06:15 AM TOBACCO MEDS OFFER ED BUT DECLINED [facility] Jun 25, 2013 02:47 PM QUIT TOBACCO >7 YEARS AGO [facility] May 04, 2010 12:36 PM LIFETIME NON-USER OF TOBACCO [facility] Jul 30, 2009 11:12 AM CURRENT TOBACCO USER [facility] Mar 20, 2008 01:00 PM CURRENT TOBACCO USER [facility] Mar 20, 2008 01:[address] OP SMOKING CLINIC [facility] Mar 20, 2008 01:00 PM TOBACCO OFFERRED P T MEDS (PROVIDER) [facility] Mar 06, 2007 10:38 AM QUIT TOBACCO >7 YEARS AGO [facility] May 09, 2006 09:29 AM CURRENT TOBACCO USER [facility] Aug 27, 2004 10:41 AM CURRENT TOBACCO USER [facility] Aug 27, 2004 10:41 AM SMOKER <10 [facility] Advance Directives: All historical and current Section Date Range: From patient's date of to the date document was created. This section includes ALL of a patient's completed or amended [place] Advance and Rescinded Directives. The entries below indicate that a directive exists for the patient, but an actual copy is not included with this document. The data comes from all [place] facilities. Date Advance Directives Provider Source Oct 21, 2022 FRANKLIN ROTH [facility] Sep 23, 2004 ADVANCE DIRECTIVE CJ RUDOLPH [facility] May 24, 2004 ADVANCE DIRECTIVE MITCH ZEE [facility] May 24, 2000 ADVANCE DIRECTIVE MICHELE CENTENO [facility] Nov 11, 1996 ADVANCE DIRECTIVE MAGGIE DRAKE [...] the Encounter. The data comes from all [place] treatment facilities. Date/Time Radiology Report Provider Source Nov 13, 2024 12:14 PM US ABDOMEN COMPLET E W/BLOOD FLOW DOPPLER (STL): BETTY HAAS [id number] -[id number] M Exm Date: NOV 13, 2024@12:14 Req Phys: NIKA SANCHEZ Loc: [facility] (Req'g Lo Img Loc: [facility]UL[facility] [place] Service: [address] [address] (Case [id number] COMPLETE) US ABDOMEN LTD, SINGLE ORG OR CHRISTIN(US Detailed) CPT:64180 Reason for Study: HCC surveillance (Case [id number] COMPLETE) US BLOOD FLOW ABD/RENAL DOPPLER ((US Detailed) CPT:57157 Clinical History: Report Status: Verified Date Reported: NOV 13, 2024 Date Verified: NOV 13, 2024 Frame Assembler E-Sig:/ES/RAFAEL WILDER Report: Case [id number], [id number]. US ABDOMEN LTD, SINGLE ORG OR QUADRANT, [...] Primary Interpreting Staff: RAFAEL WILDER, Diagnostic Radiologist (Frame Assembler) Primary Interpreting Resident: CHRISTINA MALAGON, Vascular & Interventional Pile Operator /RAFAEL PALOMINO [facility] Encounter Notes: All associated encounter notes This section contains the clinical notes associated to the Encounter. Date/Time Encounter Note(s) Provider Source November 29, 2024 12:14 PM ACCOUNTING OF DISC LOSURES NOTE: LOCAL TITLE: STATE PRESCRIPTION DRUG MONITORING PROGRAM STANDARD TITLE: ACCOUNTING OF DISCLOSURES NOTE DATE OF NOTE: NOVEMBER 29, 2024@12:14:56 ENTRY DATE: NOVEMBER 29, 2024@12:14:56 AUTHOR: FRANKLIN ROTH EXP COSIGNER: URGENCY: STATUS: COMPLETED This PDMP query was submitted by Franklin Roth PHARMD. The clinical justification for this PDMP query is to review controlled substances prescribed outside of the [place], and any additional information that may become available, as an important component of standard clinical care, and in accordance with [facility] policy. Patient information was shared with the PDMP Appriss [place]. No prescription(s) for controlled substances outside the [place] were found in the last 90 days. /los/ FRANKLIN ROTH PHARM.D., BCPS, BCACP CLINICAL TAPE CONTROLLED MACHINE STITCHER - PAIN MANAGEMENT Signed: 11/29/2024 12:56 FRANKLIN ROTH [facility] November 29, 2024 12:11 PM PHARMACY NOTE: LOCAL TITLE: PHARMACY PAIN PHONE ST[facility] STANDARD TITLE: PHARMACY NOTE DATE OF NOTE: NOVEMBER 29, 2024@12:11 ENTRY DATE: NOVEMBER 29, 2024@12:11:29 AUTHOR: FRANKLIN ROTH EXP COSIGNER: URGENCY: STATUS: COMPLETED S: Pt is a 54 year old MALE who is currently following w/ pain management clinical pharmacy service. At last appointment on 10/24/24: - Increased duloxetine to 60mg once daily. In addition, community care chiro consult was placed by PCP. Since last appointment, no significant interval history. Community care chiro did reach out to patient, but pt failed mandated scheduling effort. Today, states that he has been having more pain. Pt has not noticed any further improvement in his pain w/ the recent dose increase in duloxetine. States that both of the feet are the worst pain, feels electric pain and sharp. In addition, pt states that he is having abdominal pain due to not having had a bowel movement in 3 days. States that when this happened the last time, he needed to spend 3 days in the hospital. 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 - effective for the low back pain; uses mainly for flare ups of low back pain //Diclofenac 1% gel- 4gm four times daily - using two times daily for feet //pregabalin 300mg twice daily - helpful; taking consistently, believes somewhat helpful. //salonpas patches: apply one patch every 8 hours as needed - will use occasionally for localized pain, helpful. //cholecalciferol 4000 IU once daily //cyanocobalamin 100mcg once daily //cyclobenzaprine 10mg three times daily as needed - as needed only - needs at night mostly, occasionally during the day //mama bear oasis cream with lavender (OTC) - ordered from [employer]; using on shoulders and back occasionally, unclear if helpful OTHER treatments for pain: - Is patient enrolled in [employer]? : (x) YES () NO: currently receiving BFA, states is helpful. - uses heating pad - lower back pain - helpful for temporary relief - respiratory care specialist: states was helpful, but wishes he could see chiro more often. We discussed the chiro scheduling effort. Both and pt are denying that they received a call from [facility] to schedule. - biofeedback: Pt ended up having non-epileptic seizure during a couple of the sessions, so this was stopped. NALOXONE / STORM / RIOSORD: - If applicable, has your naloxone kit been used on you or another person since last visit? n/a - STORM risk score: very high - RIOSORD risk class: n/a SOCIAL HISTORY: (did not update during this visit due to 's time constraints) - ETOH use: denies - tobacco use: denies - marijuana use: every once in a while, takes an edible every 2-3 months when he feels like the pain is too much - cocaine use: denies SUICIDAL IDEATION: Have you thought about hurting yourself over the past month? NO ANALGESIA: 1. Location and nature of patient's pain: - low back pain - bilateral knee pain (right worst) - diabetic neuropathy (especially at night) - fibromyalgia 2. PAIN SCORE: PEG TOOL Each question is based on a 0 to 10 scale, with 0 as a no pain or interference and 10 as the worst pain or interference imaginable . Question #1: On scale of 0 (no pain) through 10 (worst pain), which number best describes your pain on average during the past week? Average score: Previous 8 Current 8-9 Question #2 On scale of 0 (no interference) through 10 (extreme/frequent interference), which number best describes how pain has interfered with your enjoyment of life during the past week? Average score: Previous 9 Current 9 Question #3 On a scale of 0 (no interference) through 10 (extreme/frequent interference), which number best describes how pain has interfered with your general activity during the past week? Average score: Previous 9 Current 9 SUMMARY Average of the three previous scores Summary score: Previous 9 Current 9 ACTIVITIES of DAILY LIVING questions: 1. Since you started the medications, have you noticed an improvement in your daily activities? - pain medication therapies have helped him function and complete activities of daily living, at least most days of the week. States that he has been pushing himself more, by getting out and about and going places and doing more walking. No changes. Went on a fishing trip a week or two ago, and had to rest for 2 days after the trip. 2. What are your goals for pain management (pain level, activity goals, etc.)? 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 Recently, has not had a BM for 3 days, and has been having abdominal pain. has given him MiraLAX and a couple of other laxative and he still has not been able to have a BM. (-) Sedation: denies ABERRANT Behavior: none ON OPIOID THERAPY ( ) Y (X) N - Opioid consent: n/a - Verbal consent for UDS (annual): n/a - Last methadone panel: n/a - Last PDMP: 11/29/24 - Last naloxone kit: n/a PAST OPIOIDS / NON-OPIOIDS trialed: acetaminophen 3000mg/day baclofen 30mg/day capsaicin 0.075% cream diclofenac 150mg/day gabapentin 1800mg/day ibuprofen 2400mg/day meloxicam 7.5mg/day methocarbamol 2250mg/day naproxen 1000mg/day oxycodone/APAP 5/325mg 1-2 tabs QID salsalate 3000mg/day tramadol 400mg/day Allergies: NIACIN, SIMVASTATIN, COREG 25MG TABLET, PRAVASTATIN, SHRIMP, ATORVASTATIN ROSUVASTATIN, LOVASTATIN, PITAVASTATIN Current medications: Active Outpatient Medications (including Supplies): Active Outpatient [...] TABLET BY MOUTH ONCE A DAY ACTIVE Indication: FOR ALLERGY SYMPTOMS 4) CHOLECALCIF 50MCG [...] THIS MEDICATION. Indication: FOR MUSCLE SPASM 8) DULOXETINE HCL 60MG EC CAP TAKE ONE CAPSULE BY MOUTH ONCE A ACTIVE (S) DAY DO NOT ABRUPTLY DISCONTINUE MEDICATION. Indication: FOR PTSD/MOOD/ANXIETY/PAIN 9) UATXCFLIWDVDW32.5/IFQMGBZ247 0MG 24HR TAB TAKE 2 TABLETS BY ACTIVE MOUTH ONCE A DAY TAKE WITH FOOD Indication: FOR DIABETES 10) EZETIMIBE 10MG TAB TAKE ONE TABLET BY MOUTH ONCE A DAY TO ACTIVE LOWER CHOLESTEROL 11) GLIPIZIDE 10MG TAB TAKE ONE TABLET BY MOUTH TWO TIMES A DAY ACTIVE BEFORE MEALS TAKE 30 MINUTES BEFORE EATING. Indication: FOR DIABETES 12) GLUCOSE SENSOR FREESTYLE BREN 3 PLUS USE SENSOR EVERY 15 ACTIVE DAYS Indication: FOR BLOOD GLUCOSE MONITORING 13) HYDROXYZINE HCL 25MG TAB TAKE ONE TABLET BY MOUTH THREE ACTIVE (S) TIMES A DAY NEEDED *MAY CAUSE DROWSINESS* Indication: FOR ANXIETY 14) LIDOCAINE 5% PATCH APPLY 1 PATCH TO SKIN SITE NIGHTLY ACTIVE NEEDED . MAY USE 1-3 PATCHES. PATCHES MAY BE CUT TO FIT ONTO FEET. APPLY PATCH AND PRESS FIRMLY FOR 10-15 SECONDS. KEEP ON FOR 12 HOURS THEN REMOVE PATCH FOR 12 HOURS. Indication: FOR PAIN 15) OLODATEROL/TIOTROP 2.5MCG/ACTUAT 60D INH INHALE 2 PUFFS BY ACTIVE ORAL INHALATION ONCE A DAY ADMINISTER AT SAME TIME EACH DAY Indication: FOR COPD 16) PRAZOSIN HCL 2MG CAP TAKE THREE CAPSULES BY MOUTH AT BEDTIME ACTIVE (S) MAY CAUSE DIZZINESS OR DROWSINESS. Indication: FOR NIGHTMARES 17) PREGABALIN 300MG ORAL CAP TAKE ONE CAPSULE BY MOUTH TWICE A ACTIVE DAY *MAY CAUSE DROWSINESS* Indication: FOR FIBROMYALGIA 18) SALONPAS PAIN RELIEF PATCH APPLY 1 PATCH TO SKIN SITE EVERY ACTIVE EIGHT(8) HOURS NEEDED (EXTERNAL USE ONLY) Indication: FOR PAIN 19) SEMAGLUTIDE 2MG/0.75ML INJ PEN 3ML INJECT 2MG UNDER THE SKIN ACTIVE (S) EVERY WEEK Indication: FOR DIABETES 20) SINUS RINSE NEILMED PKT USE 1 PACKET NOSTRIL(S) ONCE A DAY ACTIVE Indication: FOR NASAL CONGESTION 21) SODIUM CHLORIDE 0.65% SOLN NASAL SPRAY USE 1 SPRAY INTO ACTIVE NOSTRIL(S) EVERY 4 HOURS NEEDED Indication: FOR NASAL CONGESTION 22) TRAZODONE HCL 100MG TAB TAKE TWO TABLETS BY MOUTH AT BEDTIME ACTIVE Indication: FOR DEPRESSION Active Non-VA Medications Status 1) Non-VA TRIAMCINOLONE ACETONIDE 0.025% CREAM SPARINGLY TO ACTIVE AFFECTED AREA(S) TWICE A DAY Indication: FOR ATOPIC DERMATITIS 23 Total Medications No medications found. Current medical problems: 1) Abnormal results of liver function studies 2) Diverticulitis comment: S/P PARTIAL COLECTOMY 4/06 3) Erectile dysfunction 4) Obesity 5) Chest pain 6) Sensory-neural hearing loss 7) Back pain (SNOMED CT 542862943) 8) Benign hypertension (SNOMED CT 59485893) 9) Convulsion comment: nonepileptic psychogenic 10) Male hypogonadism 11) Conversion disorder (SNOMED CT [id number]) 12) Testicular hypofunction 13) Osteoarthritis of right [...] 27) Chronic fatigue syndrome comment: per recent [facility] evaluation in 03/2022. 28) Fibromyalgia 29) Exposure to potentially hazardous substance 30) Chronic post-traumatic stress disorder 31) Major depressive disorder O: Recent labs: AMPHET/METHAMPHETAMINE Negative ng/mL 09/12/2023 21:20 AMPHET/METHAMPHETAMINE Negative ng/mL 04/09/2021 12:46 BENZODIAZEPINES (STL) Negative ng/mL 04/09/2021 12:46 CANNABINOIDS Negative ng/mL 09/12/2023 21:20 CANNABINOIDS 55-POS ng/mL 04/09/2021 12:46 COCAINE METABOLITES Negative ng/mL 09/12/2023 21:20 COCAINE METABOLITES Negative ng/mL 04/09/2021 12:46 METHADONE Negative ng/mL 04/09/2021 12:46 OPIATES Negative ng/mL 09/12/2023 21:20 OPIATES Negative ng/mL 04/09/2021 12:46 OXYCODONE (NQZCY-PEN-IT) Negative ng/mL 04/09/2021 12:46 CREATININE URINE/OTHERS 48.2 L mg/dL 09/12/2023 21:20 CREATININE URINE/OTHERS 61.5 L mg/dL 05/15/2023 15:42 CREATININE URINE/OTHERS 90.4 mg/dL 04/25/2022 14:43 ETHANOL Negative mg/dL 09/12/2023 21:20 ETHANOL Negative mg/dL 04/09/2021 12:46 No data available for: TRAMADOL VITAMIN D, 25-HYDROXY 35.4 ng/mL 11/13/2024 14:35 No TESTOSTERONE EO data found HGA1C 7.5 H % 11/13/2024 14:35 HGA1C 6.8 H % 12/14/2023 11:57 HGA1C 8.0 H % 09/08/2023 13:43 HGA1C 7.7 H % 05/15/2023 15:37 HGA1C 7.2 H % 01/10/2023 14:51 B12 423 pg/mL 12/14/2023 11:58 TSH 1.176 uIU/mL 05/15/2023 15:37 AST/SGOT 35 H U/L 10/25/2024 11:20 ALT/SGPT 38 U/L 10/25/2024 11:20 TOTAL BILIRUBIN 0.5 mg/dL 10/25/2024 11:20 ALBUMIN 4.0 g/dL 10/25/2024 11:20 HGB 16.1 g/dL 10/25/2024 11:20 HCT 45.6 % 10/25/2024 11:20 PLT 161 10*3/uL 10/25/2024 11:20 est CrCl: 152.6mL/min CREATININE 0.70 mg/dL 10/25/2024 11:20 Measurement DT BP 11/13/2024 13:33 126/74 11/13/2024 13:33 144/83 11/01/2024 15:48 126/79 QTC interval : 01/15/2024 12:36 48810 QTC Calculation(Bazett)448 ms Recent imaging: none A/P: Pt with low back pain, bilateral knee pain (right worst), diabetic neuropathy (worse these days, especially at night), and fibromyalgia. Pt is having some functional benefit w/ current pain medications. However, it appears today that the abdominal pain from the constipation has taken over. Mutually agreed to not make any changes today. I also STRONGLY recommended that if he hasn't had a bowel movement in the next couple of hours to seek medical attn, especially since he is also having what appears to be significant abdominal pain. Pt and (who was also present) verbalized understanding. With regards to the chiropractic consult, I requested pt's PCP to resubmit the consult and for community care to contact the pt 's phone number at [phone] to schedule. No outside [facility] activity in the PDMP. Current renal and hepatic function allow for current pain medications at current doses. 1. Continue current therapy. Pt also has a PCP appt scheduled on 01/13/25. If pain continues to be worse, minus the abdominal pain pt is currently experiencing, could consider dose titration of the low dose naltrexone to 4.5mg once daily. 2. Next pharmacy pain clinic appt(s): 02/10/25 Time spent w/ pt: 20 minutes PBM PharmD Pharmacotherapy Rem V12: PHARMACIST INTERVENTIONS: PAIN MANAGEMENT Medication Intervention(s) Non-opioid pain medication intervention(s) Medication monitoring, no dosage change required, continue to monitor and assess High risk assessment evaluation Pain assessment and screening evaluation to monitor pain control and pain-related quality of life Query of the [facility] Prescription Drug Monitoring Program (PDMP) /los/ FRANKLIN ROTH PHARM.D., BCPS, BCACP CLINICAL TAPE CONTROLLED MACHINE STITCHER - PAIN MANAGEMENT Signed: 11/29/2024 12:56 FRANKLIN ROTH [facility]
--- OUTSIDE RECORDS SUMMARY | 2024-11-30 15:28 | XMS_ITS | Encounter Summary ---
Author Name [facility] Organization [facility] Address [address] [place] [address] Care Team Providers Care Caster Helper Name Role Phone YONATHAN LINDSAY Primary Care Provider OMEGA Bethea Unavailable Unavailable Selected Encounter This section includes the information on record at [place] for the Encounter. Date/Time Encounter Type Encounter Description Reason Provider Source Mar 20, 2024 09:29 AM Outpatient Encounter COMMUNITY CARE CONSULT DERICK WILKES Encounter Template Text not used by [place] Plan of Treatment: Future Appointments (+ 6 months) and Future Tests (+/- 45 days) The Plan of Treatment section includes future care activities for the patient from all [place] treatmentfacilities. This section includes future appointments and future orders which are active, pending or scheduled. Future Appointments This section includes appointments that were scheduled to occur 6 months from the date of the Encounter, up to a maximum of 20 appointments. The data comes from all [place] treatment facilities. Appointment Date/Time Appointment Type Appointme nt Facility Name Mar 26, 2024 03:00 PM AMBULATORY - PSYCHIATRY [facility] Apr 03, 2024 11:00 AM [facility] Apr 08, 2024 02:00 PM AMBULATORY - SURGERY [facility] Apr 09, 2024 01:00 PM AMBULATORY - NONE [facility] Apr 19, 2024 10:00 AM AMBULATORY - NONE . [facility] Apr 23, 2024 03:00 PM AMBULATORY - MEDICINE [facility] Apr 29, 2024 01:00 PM AMBULATORY - NONE [facility] Apr 30, 2024 03:00 PM AMBULATORY - PSYCHIATRY [facility] May 03, 2024 10:30 AM AMBULATORY - SURGERY [facility] May 21, 2024 01:00 PM AMBULATORY - PSYCHIATRY [facility] May 31, 2024 10:30 AM AMBULATORY - SURGERY [facility] Jun 05, 2024 09:30 AM AMBULATORY - NONE [facility] Jun 14, 2024 11:00 AM AMBULATORY - SURGERY [facility] Jun 17, 2024 03:00 PM AMBULATORY - MEDICINE [facility] Jun 25, 2024 03:00 PM AMBULATORY - PSYCHIATRY [facility] Jul 01, 2024 10:30 AM AMBULATORY - NONE [facility] Jul 08, 2024 10:30 AM AMBULATORY - REHAB MEDICIN E [facility] Jul 18, 2024 02:00 PM AMBULATORY - MEDICINE [facility] Jul 22, 2024 03:00 PM AMBULATORY - NONE [facility] Aug 02, 2024 01:30 PM AMBULATORY - SURGERY [facility] Lab Results: +/- 30 days of the encounter This section includes the Chemistry and Hematology Lab Results on record with [place] for the patient. Radiology Reports and Pathology Reports are provided separately, in subsequent sections. Lab Results This section contains the Chemistry/Hematology Results that were resulted 30 days before or 30 daysafter the date of the Encounter. Date/Time Source Result Type Result - Unit Interpretation Reference Range Specimen Type Comment Apr 19, 2024 08:45 PM [facility] GLUCOSE,BLOOD-poct (STL) BLOOD Specimen Type: BLOOD Comment: Test Performed by: [id number] Meter #: [id number] Ordering Provider: KIKI PINA Report Released Date/Time: Apr 19, 2024 10:10 PM Reporting Lab: [place] [address] [facility] [address] Performing Lab: [place] [address] [place] [phone] GLUCOSE,BLOOD-poct (STL) 232 mg/dL H 72-99 Apr 19, 2024 05:13 PM [facility] GLUCOSE,BLOOD-poct (STL) BLOOD Specimen Type: BLOOD Comment: Test Performed by: [id number] Meter #: [id number] Ordering Provider: KIKI PINA Report Released Date/Time: Apr 19, 2024 05:24 PM Reporting Lab: [place] [address] [place] [phone] Performing Lab: [place] [phone] GLUCOSE,BLOOD-poct (STL) 176 mg/dL H -Apr 19, 2024 03:32 PM [facility] GLUCOSE,BLOOD-poct (STL) BLOOD Specimen Type: BLOOD Comment: Test Performed by: [id number] Meter #: [id number] Ordering Provider: LAUREN MOREL Report Released Date/Time: Apr 19, 2024 03:43 PM Reporting Lab: [place] [address] [place] [phone] Performing Lab: [place] [address] [place] [phone] GLUCOSE,BLOOD-poct (STL) 155 mg/dL H 72-Apr 19, 2024 02:56 PM [facility] MRSA SURVL NARES DNA NARES [...] Apr 19, 2024 04:55 PM Reporting Lab: [place] [address] [facility] [address] Performing Lab: [address] [address] MRSA SURVL NARES DNA Negative Negative Apr 19, 2024 10:33 AM [facility] GLUCOSE,BLOOD-poct (STL) BLOOD Specimen Type: BLOOD Comment: Test Performed by: [id number] Meter #: [id number] Ordering Provider: YONATHAN LINDSAY Report Released Date/Time: Apr 19, 2024 10:50 AM Reporting Lab: [address] [address] Performing Lab: [address] [address] GLUCOSE,BLOOD-poct (L) 226 mg/dL H 72-99 Apr 08, 2024 03:28 PM [facility] PT/INR NEW (STL-MA) PLASMA Specimen Type: PLAS MA Comment: ~For Test: BASIC METABOLIC PANEL ~pre-op Ordering Provider: NOAH SANCHEZ Report Released Date/Time: Apr 02, 2024 12:39 PM Reporting Lab: [place] [address] [facility] [address] Performing Lab: [address] [address] PROTIME 12.5 s 9.4-12.5 INR VALUE 1.1 {INR} Apr 08, 2024 03:28 PM [facility] BASIC METABOLIC PANEL PLASMA Specimen Type: PL ASMA Comment: ~For Test: BASIC METABOLIC PANEL ~pre-op Ordering Provider: NOAH SANCHEZ Report Released Date/Time: Apr 02, 2024 12:39 PM Reporting Lab: [address] [address] Performing Lab: [address] [address] CREATININE 1.59 mg/dL H 0.7-1.3 UREA NITROGEN 13.7 mg/dL 9.0-25.0 GLUCOSE 234 mg/dL H 72-99 SODIUM 139 meq/L 136-145 POTASSIUM 4.3 meq/L 3.5-5 CHLORIDE 104 meq/L 98-107 CARBON DIOXIDE 22 meq/L 22-31 CALCIUM 9.6 mg/dL 8.4-10.4 EGFR (CKD-EPI 2020) 50.6 >60 Apr 08, 2024 03:28 PM [facility] CBC BLOOD Specimen Type: BLOOD Comment: ~For Test: BASIC METABOLIC PANEL ~pre-op Ordering Provider: NOAH SANCHEZ Report Released Date/Time: Apr 02, 2024 12:39 PM Reporting Lab: [address] [address] Performing Lab: [address] [address] WBC 7.3 10*3/uL 3.6-11.2 RBC 5.23 10*6/uL [...] 0.60 BASOPHILS, ABSOLUTE 0.03 10*3/uL 0.00-0. 20 Feb 23, 2024 11:19 AM [facility] CONJ. BILIRUBIN PLASMA Specimen Type: PLASM A Comment: LDL Unable to be calculated LDL calculation invalid when Triglyceride exceeds 250 mg/dl Ordering Provider: NIKA SANCHEZ Report Released Date/Time: Feb 23, 2024 10:51 AM Reporting Lab: [address] [address] Performing Lab: [address] [address] CONJ. BILIRUBIN 0.2 mg/dL 0-0.5 Feb 23, 2024 11:19 AM [facility] PT/INR NEW (STL-MA) PLASMA Specimen Type: PLAS MA No comment entered. Ordering Provider: NIKA SANCHEZ Report Released Date/Time: Feb 23, 2024 10:51 AM Reporting Lab: [address] [address] Performing Lab: [address] [address] PROTIME 12.2 s 9.4-12.5 INR VALUE 1.1 {INR} Feb 23, 2024 11:19 AM [facility] LIPID PANEL (STL) PLASMA Specimen Type: PLASM A Comment: LDL Unable to be calculated LDL calculation invalid when Triglyceride exceeds 250 mg/dl Ordering Provider: NIKA SANCHEZ Report Released Date/Time: Feb 23, 2024 10:51 AM Reporting Lab: [address] [address] Performing Lab: [address] [address] CHOLESTEROL 153 mg/dL 0-200 TRIGLYCERIDE 373 mg/dL H 0-150 DIRECT LDL 64 mg/dL L >100 CALCULATED LDL comment mg/dL HDL(New) 37 mg/dL L >40 Feb 23, 2024 11:19 AM [facility] COMPREHENSIVE METABOLIC PANEL PLASMA Specimen Type: PLASMA Comment: LDL Unable to be calculated LDL calculation invalid when Triglyceride exceeds 250 mg/dl Ordering Provider: NIKA SANCHEZ Report Released Date/Time: Feb 23, 2024 10:51 AM Reporting Lab: [address] [address] Performing Lab: [address] [place] [address] CREATININE 0.85 mg/dL 0.7-1.3 UREA NITROGEN 14.4 [...] 102.6 >60 Feb 23, 2024 11:19 AM [facility] CBC BLOOD Specimen Type: BLOOD No comment entered. Ordering Provider: NIKA SANCHEZ Report Released Date/Time: Feb 23, 2024 10:51 AM Reporting Lab: [address] [address] Performing Lab: [address] [address] WBC 7.1 10*3/uL 3.6-11.2 RBC 5.10 10*6/uL [...] and tobacco- related health factors from the [place] facility where the Encounter took place. Current Smoking Status This section includes the most current smoking, or tobacco-related health factor, from the [place] facility where the Encounter took place. Date/Time Current Smoking Status Comment Facility May 26, 2000 01:36 PM CURRENT NON-TOBACC O USER-HX OF USE stop smoking 10yrs ago,started smoking at 14yrs,smoked 2packs a day [facility] Tobacco Use History This section includes a history of the smoking, or tobacco-related health factors, that were collected on or before the date of the Encounter. The data comes from the [place] facility where the Encounter took place. Date/Time Smoking Status/Tobacco Use Comment F acility Mar 07, 2000 12:35 PM CURRENT NON-TOBACC O USER-HX OF USE [facility] Advance Directives: All historical and current Section Date Range: From patient's date of to the date document was created. This section includes ALL of a patient's completed or amended [place] Advance and Rescinded Directives. The entries below indicate that a directive exists for the patient, but an actual copy is not included with this document. The data comes from all [facility]. Date Advance Directives Provider Source Oct 21, 2022 [facility] KO [facility] Sep 23, 2004 ADVANCE DIRECTIVE CJ RUDOLPH [facility] May 24, 2004 ADVANCE DIRECTIVE MITCH ZEE IS [facility] May 24, 2000 ADVANCE DIRECTIVE MICHELE CENTENO IS [facility] Nov 11, 1996 ADVANCE DIRECTIVE MAGGIE DRAKE [facility] December 08, 1995 ADVANCE DIRECTIVE KI SANTOYO [facility] Radiology Reports: +/- 30 days [...] the Encounter. The data comes from all [facility]. Date/Time Radiology Report Provider Source Apr 08, 2024 03:15 PM CHEST X-RAY, 2 VIE WS: BETTY HAAS [id number] -[id number] M Exm Date: APR 08, 2024@15:15 Req Phys: NOAH SANCHEZ Loc: [place]-PRE-OP EVAL NURSING AM (Req Img Loc: [place]-MAIN RADIOLOGY SUITE Service: [address] [id number] (Case [id number] COMPLETE) CHEST X-RAY, 2 VIEWS (RAD Detailed) CPT:72723 Reason for Study: pre-op Clinical History: Report Status: Verified Date Reported: APR 08, 2024 Date Verified: APR 08, 2024 Program Evaluation Consultant E-Sig:/ES/Franklin Hartley MD. FACR. Report: History: pre-op. Comparison: Prior chest examination-03/24/2023. Technique: PA and lateral views. Findings: No pulmonary consolidation, pleural effusion, pneumothorax, cardiomegaly or pulmonary edema is seen. Impression: No acute cardiopulmonary disease is seen. Primary Interpreting Staff: Franklin Hartley MD. FACR, Neuroradiologist (Program Evaluation Consultant) /FRANKLIN KENDALL [facility] Pathology Reports: +/- 30 [...] the Encounter. The data comes from all [facility]. Date/Time Pathology Report Provider Source Apr 08, 2024 03:00 PM LR MICROBIOLOGY RE PORT: Accession [UID]: [id number] [[id number]] Received: Apr 08, 2024@15:27 Collection sample: URINE,CLEAN CATCH Collection date: Apr 08, 2024 15:00 Site/Specimen: URINE Provider: NOAH SANCHEZ Test(s) ordered: C&S URINE..................... completed: Apr 09, 2024 22:40 * BACTERIOLOGY FINAL REPORT => Apr 09, 2024 22:47 TECH CODE: [id number] CULTURE RESULTS: STREP. AGALACTIAE, GRP. B - Quantity: >25,000 - <50,000 CFU/ML Comment: There will be no work up. Bacteriology Remark(s): RYAN 04/09/24 >25,000 - <50,000 CFU/ML S. AGAL - There will be no work up. <10,000 CFU/ML MIXED GRAM POSITIVE ORGANISM There will be no work up. =--=--=--=--=--=--=--=--=--= --=--=--=--=--=--=--=--=--=- -=--=--=--=--=--=--=-- Performing Laboratory: Bacteriology Report Performed By: [facility] [address] [place] [address] CLIA# [id number] [address] [place] [address] LUANA CINTRON [facility] Encounter Notes: All associated encounter notes This section contains the clinical notes associated to the Encounter. Date/Time Encounter Note(s) Provider Source Mar 20, 2024 09:29 AM NONVA NOTE: LOCAL TITLE: COMMUNITY CARE-CARE COORDINATION PLAN NOTE [address] TITLE: NONVA NOTE DATE OF NOTE: MAR 20, 2024@09:29 ENTRY DATE: MAR 20, 2024@09:29:48 AUTHOR: UYEN WILKES EXP COSIGNER: URGENCY: STATUS: COMPLETED Community Care Consult: COMMUNITY CARE-SLEEP MANDIBULAR REPOSITIONING DEVICE STL Consult No: [id number] HS Referral #: [id number] Chief Complaint: Sleep apnea, intolerance of CPAP Patient Admitted? No Level of Care Coordination Moderate Care Coordination was determined from: Chart Review Facility Community Care Office Contact Care Coordination Point of Contact: Uyen Wilkes RN Services: Basic Care Coordination Services Monitoring and coordination of Rehab/PT Services Direct communication to referring provider Care management, if Plan: Navigate services regarding CITC protocol assist with scheduling and f/u with as well as providers coordinate care as needed such and monitor disease process Report significant findings to the Medical team Help to transition care to the referring provider /es/ UYEN LACKEY RN REGISTERED NURSE Signed: 03/20/2024 09:34 UYEN WILKES [facility]
--- OUTSIDE RECORDS SUMMARY | 2024-11-30 15:28 | XMS_ITS ---
Author Name [facility] [place] [facility] [place] Organization [facility] [place] Address [address] [place] [address] Care Team Providers Care Heat Seal Operator Name Role Phone YONATHAN CORONEL Primary Care Provider OMEGA Bethea Unavailable Unavailable Selected Encounter This section includes the information on record at [place] for the Encounter. Date/Time Encounter Type Encounter Description Reason Provider Source Mar 26, 2024 03:00 PM PSYTX W PT 60 MINUTES PTSD OUTPT RES SPEC PROG INDIV ICD-10-CM F43.12 Post-traumatic stress disorder, chronic FRANKLIN HASSAN IHYumi Encounter Template Text not used by [place] Assessments - Encounter Diagnoses This section includes the primary and secondary diagnoses documented for the Encounter. 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 Mar 26, 2024 04:27 PM SECONDARY Conversion disorder with seizures or convulsions FRANKLIN HASSAN [facility] Plan of Treatment: Future Appointments (+ 6 months) and Future Tests (+/- 45 days) The Plan of Treatment section includes future care activities for the patient from all [place] treatmentfacilities. This section includes future appointments and future orders which are active, pending or scheduled. Future Appointments This section includes appointments that were scheduled to occur 6 months from the date of the Encounter, up to a maximum of 20 appointments. The data comes from all [place] treatment facilities. Appointment Date/Time Appointment Type Appointme nt Facility Name Apr 03, 2024 11:00 AM AMBULATORY - MEDICINE [facility] Apr 08, 2024 02:00 PM AMBULATORY - SURGERY [facility] Apr 09, 2024 01:00 PM AMBULATORY - NONE [facility] Apr 19, 2024 10:00 AM AMBULATORY - NONE [facility] Apr 23, 2024 03:00 PM AMBULATORY - MEDICINE [facility] Apr 29, 2024 01:00 PM AMBULATORY - NONE [facility] Apr 30, 2024 03:00 PM AMBULATORY - PSYCHIATRY [facility] May 03, 2024 10:30 AM AMBULATORY - SURGERY [facility] May 21, 2024 01:00 PM AMBULATORY - PSYCHIATRY [facility] May 31, 2024 10:30 AM AMBULATORY - SURGERY [facility] Jun 05, 2024 09:30 AM AMBULATORY - NONE [facility] Jun 14, 2024 11:00 AM AMBULATORY - SURGERY [facility] Jun 17, 2024 03:00 PM AMBULATORY - MEDICINE [facility] Jun 25, 2024 03:00 PM AMBULATORY - PSYCHIATRY [facility] Jul 01, 2024 10:30 AM AMBULATORY - NONE [facility] Jul 08, 2024 10:30 AM AMBULATORY - REHAB MEDICIN E [facility] Jul 18, 2024 02:00 PM AMBULATORY - MEDICINE [facility] Jul 22, 2024 03:00 PM AMBULATORY - NONE [facility] Aug 02, 2024 01:30 PM AMBULATORY - SURGERY [facility] Aug 08, 2024 02:00 PM AMBULATORY - PSYCHIATRY [facility] Lab Results: +/- 30 days of the encounter This section includes the Chemistry and Hematology Lab Results on record with [place] for the patient. Radiology Reports and Pathology Reports are provided separately, in subsequent sections. Lab Results This section contains the Chemistry/Hematology Results that were resulted 30 days before or 30 daysafter the date of the Encounter. Date/Time Source Result Type Result - Unit Interpretation Reference Range Specimen Type Comment Apr 20, 2024 11:39 AM [facility] GLUCOSE,BLOOD-poct (STL) BLOOD Specimen Type: BLOOD Comment: Test Performed by: [id number] Meter #: [id number] Ordering Provider: KIKI PINA Report Released Date/Time: Apr 20, 2024 12:07 PM Reporting Lab: [address] [address] Performing Lab: [address] [address] GLUCOSE,BLOOD-poct (STL) 266 mg/dL H -Apr 20, 2024 05:26 AM [facility] GLUCOSE,BLOOD-poct (STL) BLOOD Specimen Type: BLOOD Comment: Test Performed by: [id number] Meter #: [id number] Ordering Provider: KIKI PNIA Report Released Date/Time: Apr 20, 2024 05:38 AM Reporting Lab: [address] [address] Performing Lab: [address] [address] GLUCOSE,BLOOD-poct (STL) 157 mg/dL H -Apr 19, 2024 08:45 PM [facility] GLUCOSE,BLOOD-poct (STL) BLOOD Specimen Type: BLOOD Comment: Test Performed by: [id number] Meter #: [id number] Ordering Provider: KIKI PINA Report Released Date/Time: Apr 19, 2024 10:10 PM Reporting Lab: [address] [address] Performing Lab: [address] [address] GLUCOSE,BLOOD-poct (STL) 232 mg/dL H 72-Apr 19, 2024 05:13 PM [facility] GLUCOSE,BLOOD-poct (STL) BLOOD Specimen Type: BLOOD Comment: Test Performed by: [id number] Meter #: [id number] Ordering Provider: KIKI PINA Report Released Date/Time: Apr 19, 2024 05:24 PM Reporting Lab: [place] [address] [facility] [address] Performing Lab: [place] [address] [facility] [address] GLUCOSE,BLOOD-poct (STL) 176 mg/dL H 72-Apr 19, 2024 03:32 PM [facility] GLUCOSE,BLOOD-poct (STL) BLOOD Specimen Type: BLOOD Comment: Test Performed by: [id number] Meter #: [id number] Ordering Provider: LAUREN MOREL Report Released Date/Time: Apr 19, 2024 03:43 PM Reporting Lab: [place] [address] [facility] [address] Performing Lab: [place] [address] [facility] [address] GLUCOSE,BLOOD-poct (STL) 155 mg/dL H -Apr 19, 2024 02:56 PM [facility] MRSA SURVL NARES DNA NARES Specimen Type: [...] Apr 19, 2024 04:55 PM Reporting Lab: [place] [address] [facility] [address] Performing Lab: [address] [address] MRSA SURVL NARES DNA Negative Negative Apr 19, 2024 10:33 AM [facility] GLUCOSE,BLOOD-poct (STL) BLOOD Specimen Type: BLOOD Comment: Test Performed by: [id number] Meter #: [id number] Ordering Provider: YONATHAN CORONEL Report Released Date/Time: Apr 19, 2024 10:50 AM Reporting Lab: [place] [address] [facility] [address] Performing Lab: [address] [address] GLUCOSE,BLOOD-poct (L) 226 mg/dL H 72-99 Apr 08, 2024 03:28 PM [facility] PT/INR NEW (L-MA) PLASMA Specimen Type: PLAS MA Comment: ~For Test: BASIC METABOLIC PANEL ~pre-op Ordering Provider: NOAH SANCHEZ Report Released Date/Time: Apr 02, 2024 12:39 PM Reporting Lab: [place] [address] [facility] [address] Performing Lab: [place] [address] [facility] [address] PROTIME 12.5 s 9.4-12.5 INR VALUE 1.1 {INR} Apr 08, 2024 03:28 PM [facility] BASIC METABOLIC PANEL PLASMA Specimen Type: PL ASMA Comment: ~For Test: BASIC METABOLIC PANEL ~pre-op Ordering Provider: NOAH SANCHEZ Report Released Date/Time: Apr 02, 2024 12:39 PM Reporting Lab: [place] [address] [facility] [address] Performing Lab: [place] [address] [facility] [address] CREATININE 1.59 mg/dL H 0.7-1.3 UREA NITROGEN 13.7 mg/dL 9.0-25.0 GLUCOSE 234 mg/dL H 72-99 SODIUM 139 meq/L 136-145 POTASSIUM 4.3 meq/L 3.5-5 CHLORIDE 104 meq/L 98-107 CARBON DIOXIDE 22 meq/L 22-31 CALCIUM 9.6 mg/dL 8.4-10.4 EGFR (CKD-EPI 2020) 50.6 >60 Apr 08, 2024 03:28 PM [facility] CBC BLOOD Specimen Type: BLOOD Comment: ~For Test: BASIC METABOLIC PANEL ~pre-op Ordering Provider: NOAH SANCHEZ Report Released Date/Time: Apr 02, 2024 12:39 PM Reporting Lab: [facility] [address] [facility] [address] Performing Lab: [facility] [address] [facility] [address] WBC 7.3 10*3/uL 3.6-11.2 RBC 5.23 10*6/uL [...] and tobacco- related health factors from the [place] facility where the Encounter took place. Current Smoking Status This section includes the most current smoking, or tobacco-related health factor, from the [place] facility where the Encounter took place. Date/Time Current Smoking Status Comment Facil esitven Jul 04, 2023 01:09 PM [place]-TOBACCO USE [place] 30 MIN OF WAKEUP [facility] Tobacco Use History This section includes a history of the smoking, or tobacco-related health factors, that were collected on or before the date of the Encounter. The data comes from the [place] facility where the Encounter took place. 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 USE ELECTRICIAN WIRING NO [facility] Jul 04, 2023 [...] Jul 13, 2021 01:00 PM VA-TOBACCO USE ELECTRICIAN WIRING NO [facility] Jul 13, 2021 [...] May 20, 2020 03:30 PM VA-TOBACCO USE ELECTRICIAN WIRING NO [facility] May 20, 2020 [...] 2004 10:41 AM SMOKER <10 [facility] Advance Directives: All historical and current Section Date Range: From patient's date of to the date document was created. This section includes ALL of a patient's completed or amended [place] Advance and Rescinded Directives. The entries below indicate that a directive exists for the patient, but an actual copy is not included with this document. The data comes from all [place] facilities. Date Advance Directives Provider Source Oct 21, 2022 FRANKLIN KO [facility] Sep 23, 2004 ADVANCE DIRECTIVE CJ RUDOLPH [facility] May 24, 2004 ADVANCE DIRECTIVE MITCH ZEE [facility] May 24, 2000 ADVANCE DIRECTIVE MICHELE CENTENO [facility] Nov 11, 1996 ADVANCE DIRECTIVE MAGGIE DRAKE [facility] December 08, 1995 ADVANCE DIRECTIVE NATANAELKI JAUREGUI [facility] Radiology Reports: +/- 30 days of the [...] the Encounter. The data comes from all [place] treatment facilities. Date/Time Radiology Report Provider Source Apr 08, 2024 03:15 PM CHEST X-RAY, 2 VIE WS: BETTY HAAS [id number] -1970 M Exm Date: APR 08, 2024@15:15 Req Phys: NOAH SANCHEZ Loc: -PRE-OP EVAL NURSING AM (Req Img Loc: -MAIN RADIOLOGY SUITE Service: [facility] [address] [place] [address] (Case [id number] COMPLETE) CHEST X-RAY, 2 VIEWS (RAD Detailed) CPT:32177 Reason for Study: pre-op Clinical History: Report Status: Verified Date Reported: APR 08, 2024 Date Verified: APR 08, 2024 Toggle Press Folder And Feeder E-Sig:/ES/Franklin Hartley MD. FACR. Report: History: pre-op. Comparison: Prior chest examination-03/24/2023. Technique: PA and lateral views. Findings: No pulmonary consolidation, pleural effusion, pneumothorax, cardiomegaly or pulmonary edema is seen. Impression: No acute cardiopulmonary disease is seen. Primary Interpreting Staff: Franklin Hartley MD. FACR, Neuroradiologist (Toggle Press Folder And Feeder) /FRANKLIN KENDALL [facility] Pathology Reports: +/- 30 days [...] the Encounter. The data comes from all [place] treatment facilities. Date/Time Pathology Report Provider Source [...] Performing Laboratory: Surgical Pathology Report Performed By: [facility] [address] [facility] CLIA# [id number] [facility] [address] [place] [address] $FTR - - - - - - - - - - - - - - - - - - - - - - - - - - - - - - - - - - - - - - - - (End of report) CHRISTY MALCOLM MD [facility] Date Apr 23, 2024 - - - - - - - - - - - - - - - - - - - - - - - - - - - - - - - - - - - - - - - - BETTY HAAS STANDARD FORM 515 ID:[id number] SEX:M :1970 AGE: 54 LOC:APFEE PCP: Yonathan Coronel NP /los/ CHRISTY MALCOLM Pathologist Signed: 04/23/2024 14:03 CHRISTY MALCOLM [facility] Apr 08, 2024 03:00 PM LR MICROBIOLOGY RE PORT: Accession [UID]: [id number] [[id number]] Received: Apr 08, 2024@15:27 Collection sample: URINE,CLEAN CATCH Collection date: Apr 08, 2024 15:00 Site/Specimen: URINE Provider: NOAH SANCHEZ Test(s) ordered: C&S URINE.................... . completed: Apr 09, 2024 22:40 * BACTERIOLOGY FINAL REPORT => Apr 09, 2024 22:47 TECH CODE: [id number] CULTURE RESULTS: STREP. AGALACTIAE, GRP. B - Quantity: >25,000 - <50,000 CFU/ML Comment: There will be no work up. Bacteriology Remark(s): -- RYAN 04/09/24 -- >25,000 - <50,000 CFU/ML S. AGAL - There will be no work up. <10,000 CFU/ML MIXED GRAM POSITIVE ORGANISM There will be no work up. =--=--=--=--=--=--=--=--= --=--=--=--=--=--=--=--=- -=--=--=--=--=--=--=--=-- =-- Performing Laboratory: Bacteriology Report Performed By: [facility], [place] [address] [facility]# [id number] [address] [facility] [address] [place] [address] [facility] Encounter Notes: All associated encounter notes This section contains the clinical notes associated to the Encounter. Date/Time Encounter Note(s) Provider Source Mar 26, 2024 04:17 PM PSYCHOLOGY NOTE: LOCAL TITLE: TRP PSYCHOTHERAPY ST STANDARD TITLE: PSYCHOLOGY NOTE DATE OF NOTE: MAR 26, 2024@16:17 ENTRY DATE: MAR 26, 2024@16:17:36 AUTHOR: FRANKLIN HASSAN COSIGNER: URGENCY: STATUS: COMPLETED PCT Psychotherapy Tracking Today's psychotherapy session was part of a standardized episode of Other PTSD Psychotherapy (e.g. supportive therapy): Other: Present Centered Therapy Measurement Based Care (MBC): MBC Act Following discussion of 's reported outcomes, we discussed the impact on treatment goals. As a result the treatment plan will remain the same. NATURE OF ENCOUNTER: fam psychotherapy TIME SPENT WITH PATIENT (Minutes): 54 SESSION NUMBER: SESSION FORMAT: [ ] Mjjs-cw-[id number] [ X] Video Telehealth [ ] Phone GOALS: The following goals were developed using shared decision-making with input by the [place]- Presents with complicated mix of medical, trauma-based/psychiatric [...] last contact [X ] Specify: Mood is better. Had a rough period with lots of NMs and FBs but reports it has calmed down. 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 Struggles with health, identity issues, and hopelessness as those limitations grow. TYPE OF INTERVENTIONS PROVIDED BY THERAPIST: [ ]Rapport Building [ ] Shared decision-making regarding goals of care [X ] Psychotherapy (Specify modality): Present centered therapy/solution psychotherapy [ ] Health Psychology Interventions [ ] Graduation Planning [ ] Other: DESCRIPTION OF INTERVENTIONS PROVIDED BY THERAPIST: Present Centered work as he approaches a birthday that he never thought would be associated with the medical/health of someone far older than he. Also got hit with wave of cluster B trauma sxs that further complicated matters. He is requiring of supervision and assistance in ways he never envisioned and it assaults his ego as he has to make accomodations lest he put himself in jeapordy. Cont. to reinforced the 's proactive steps [...] of relevant risk and protective factors, the [place] did NOT appear to be at imminent risk for suicide or homicide at this time and IS sustainable at the current level of care. -Comments: [ ] [place] IS considered to be at INCREASED RISK for suicide or homicide based upon: -Actions/interventions taken to address risk and prevent harm include: -Emergency protocols initiated were: -Comments: Emergency Services: [place] voiced understanding and willingness to go to the [place] emergency room during crisis or to utilize [facility] hospital emergency services as needed. [facility] has been given the [facility]'s Crisis Hotline number. MEASURABLE TREATMENT GOALS FOR THIS EPISODE OF CARE: To reduce PTSD and depressive/adjustment symptoms and impairments in functioning COLLABORATIVE RECOMMENDATIONS/PLAN: Assigned Therapy Tasks: [ X] Collaboratively discussed outcomes related to assessment and treatment progress. Based on this discussion: [ ] No changes to plan of care. expressed agreement with therapy tasks and nrddwo-wv-hycawa plan. [X ] Recommend changes to plan of care: Reviewed proposed changes. Discussed potential benefits, risks, and complications. We will be tightening the session interval temporarily until such time as we collaboratively feel he can go back to normal interval. agreed to proceed with changes. [ X] YES [ ] NO Comments: RTC on 04/30/24@1500 via C /los/ FRANKLIN HASSAN PSY.D. Psychologist, [facility] Signed: 03/26/2024 16:27 FRANKLIN HASSAN [facility]
--- OUTSIDE RECORDS SUMMARY | 2024-11-30 15:28 | XMS_ITS ---
Author Organization Unknown Address [address] [place] [phone] Phone Care Team Providers Care Senior Administrative Assistant Name Role Phone NUZHAT TRAN Attending Unavailable Results CHEST 2 V FRONTAL AND LATERA L - Completed: 04/10/2023 15:01 LOINC: \TM00\12FI\LM03\RM80\NUBIA o\BM09\ \MRHo\ [address] [address] ---------NAME--------- NUMBER SEX AGE ADMIT DISC. XRAY# F/C TYPE SAMINA MCKEON [id number] M 53 04/10/23 04/10/23 CB O/P DATE OF : 1970 M/R# [id number] PH#: [phone] \MRHx\ LOCATION: TRANSCRIBED: 04/11/23 11:21 CHEST 2 V FRONTAL AND LATERAL [id number] COMPLETED:04/10/23 15:01 ANK [id number] SYMPTOMS: BRONCHOSPASM PHYSICIAN: NUZHAT RIOJAS RADIOLOGY REPORT ORDER DATE and TIME: 04/10/2023 [id number] [id number] CHEST 2 V FRONTAL AND LATERAL DATE OF SERVICE: 04/10/23 14:54 PATIENT EXAMINATION: FRONTAL AND LATERAL VIEWS OF THE CHEST. HISTORY: Bronchospasm COMPARISON: None available. FINDINGS: No focal consolidation, pleural effusion or pneumothorax is identified. The cardiomediastinal silhouette is within normal limits. IMPRESSION: No acute cardiopulmonary findings. INTERPRETING RADIOLOGIST: Jose G Craft M.D. ELECTRONICALLY SIGNED BY: Jose G Craft M.D. Seed Core Operator Initials: ELIN Seed Core Operator Time: : Seed Core Operator Date: 04/11/23 Signed Date/Time: 04/11/23 11:21 UNSIGNED TRANSCRIPTIONS ARE PRELIMINARY REPORTS AND DO NOT REPRESENT MEDICAL OR LEGAL DOCUMENTS. Social History Type Status Start Date End Date Code Code Syst em Sex Male Hospital Discharge Instructions Should you have any questions prior to discharge, please contact a member of your healthcare team. If you have left the hospital and have any questions, please contact your primary care physician. Reason For Referral No Data Found Plan of Treatment No Data Found Encounters Encounter Diagnosis Start Date Code Code Sys tem Adult health examination 04/10/2023 [id number] SNO MED-CT Personal Care Team Section Performer Name Performer Role Active Date Inactive Da te Imaging Narrative Notes [facility] \TM00\12FI\LM03\RM80\DRAo\BM09\ \MRHo\ [address] [address] ---------NAME--------- NUMBER SEX AGE ADMIT DISC. XRAY# F/C TYPE SAMINA MCKEON [id number] M 53 04/10/23 04/10/23 CB O/P DATE OF : 1970 M/R# [id number] #: [id number] \MRHx\ LOCATION: TRANSCRIBED: 04/11/23 11:21 CHEST 2 V FRONTAL AND LATERAL [id number] COMPLETED:04/10/23 15:01 ANK [id number] SYMPTOMS: BRONCHOSPASM PHYSICIAN: NUZHAT SHINE RADIOLOGY REPORT ORDER DATE and TIME: 04/10/2023 1454 [id number] CHEST 2 V FRONTAL AND LATERAL DATE OF SERVICE: 04/10/23 14:54 PATIENT EXAMINATION: FRONTAL AND LATERAL VIEWS OF THE CHEST. HISTORY: Bronchospasm COMPARISON: None available. FINDINGS: No focal consolidation, pleural effusion or pneumothorax is identified. The cardiomediastinal silhouette is within normal limits. IMPRESSION: No acute cardiopulmonary findings. INTERPRETING RADIOLOGIST: Jose G Craft M.D. ELECTRONICALLY SIGNED BY: Jose G Craft M.D. Seed Core Operator Initials: ELIN Seed Core Operator Time: 11:21 Seed Core Operator Date: 04/11/23 Signed Date/Time: 04/11/23 11:21 UNSIGNED TRANSCRIPTIONS ARE PRELIMINARY REPORTS AND DO NOT REPRESENT MEDICAL OR LEGAL DOCUMENTS. Procedures Notes [facility] 04/11/2023 14:[address] [address] PULMONARY FUNCTION TEST NAME: SAMINA MCKEON NUMBER: [id number] ADMIT: 04/10/23 : 1970 AGE: 53 MR#: [id number] DISC: 04/10/23 SEX: M TYPE: O/P ROOM: ADMIT PHYSICIAN: [address] [place] [address] SECONDARY OR FAMILY PHYSICIAN: DICTATED: 04/11/23 @ 12:59pm INTERPRETING PHYSICIAN: Dr. Maxim Ulrich DATE: 04/10/23 SPIROMETRY FLOW VOLUME LOOP INTERPRETATION REPORT FVC is 1.78 L, 33% of predicted. FEV1 is 1.13 L, 28% of predicted. FEV1/FVC ratio is 64%. Following a single dose of Albuterol, FVC is 1.81 L, 1% change. FEV1 is 1.36 L, a 19% change. Flow volume loop shows that the inspiratory loop is unremarkable. The expiratory loop does suggest curving. SUMMARY: Very severe forced ventilatory abnormality. There is a positive bronchodilator response as manifested by a 19% change in the FEV1 or a 230ml improvement with partial reversibility. Electronically reviewed and signed by: Dictating initials: KEERTHI ULRICH MD Transcribe Date: 04/11/23 04/18/23 08:20 Transcribe Time: 14:35 Transcribe Initials: AZEEM
--- OUTSIDE RECORDS SUMMARY | 2024-11-30 15:28 | XMS_ITS | Encounter Summary ---
Author Name [facility] [place] [facility] [place] Address [address] [place] [address] Care Team Providers Care Distribution Specialist Name Role Phone YONATHAN LINDSAY Primary Care Provider OMEGA Bethea Unavailable Unavailable Selected Encounter This section includes the information on record at [place] for the Encounter. Date/Time Encounter Type Encounter Description Reason Provider Source Jan 30, 2024 03:00 PM PSYTX W PT 60 MINUTES PTSD OUTPT RES SPEC PROG INDIV ICD-10-CM F43.12 Post-traumatic stress disorder, chronic FRANKLIN HASSAN IHYumi Encounter Template Text not used by [place] Assessments - Encounter Diagnoses This section includes the primary and secondary diagnoses documented for the Encounter. Date/Time Primary/Secondary Diagnosis Diagnosis Name Provider Source Jan 30, 2024 04:16 PM PRIMARY Post-traumatic stress disorder, chronic FRANKLIN HASSAN [facility] Plan of Treatment: Future Appointments (+ [...] 20 appointments. The data comes from all [place] treatment facilities. Appointment Date/Time Appointment Type Appointme nt Facility Name Feb 02, 2024 02:30 PM AMBULATORY - PSYCHIATRY [facility] Feb 08, 2024 01:30 PM AMBULATORY - NONE [facility] Feb 13, 2024 10:00 AM AMBULATORY - NONE [facility] Feb 15, 2024 10:00 AM AMBULATORY - MEDICINE [facility] Feb 19, 2024 11:00 AM AMBULATORY - NONE [facility] Feb 23, 2024 10:30 AM AMBULATORY - MEDICINE [facility] Feb 26, 2024 03:00 PM AMBULATORY - MEDICINE [facility] Mar 05, 2024 03:00 PM AMBULATORY - PSYCHIATRY [facility] Mar 08, 2024 01:00 PM AMBULATORY - PSYCHIATRY [facility] Mar 26, 2024 03:00 PM AMBULATORY - PSYCHIATRY [facility] Apr 03, 2024 11:00 AM AMBULATORY - MEDICINE [facility] Apr 08, 2024 02:00 PM AMBULATORY - SURGERY [facility] Apr 09, 2024 01:00 PM AMBULATORY - NONE [facility] Apr 19, 2024 10:00 AM AMBULATORY - NONE [facility] Apr 23, 2024 03:00 PM AMBULATORY - MEDICINE [facility] Apr 29, 2024 01:00 PM AMBULATORY - NONE [facility] Apr 30, 2024 03:00 PM AMBULATORY - PSYCHIATRY [facility] May 03, 2024 10:30 AM AMBULATORY - SURGERY [facility] May 21, 2024 01:00 PM AMBULATORY - PSYCHIATRY [facility] May 31, 2024 10:30 AM AMBULATORY - SURGERY [facility] Active, Pending, and Scheduled Orders This section includes a listing of several types of active, pending, and scheduled orders, including clinic medications orders, diagnostic test orders, procedure orders and consult orders; where the start date of the order is 45 days before the date of the Encounter or 45 days after the date of theEncounter. The data comes from all [place] treatment facilities. Test Date/Time Test Type Test Details Facility Name December 19, 2023 12:00 AM Laboratory - Chemistry Order ANTI-MITOCHONDRIAL AB (STL) GOLD/RED SST SERUM SP [facility] December 19, 2023 12:00 AM Laboratory - Chemistry Order ALPHA-1 ANTITRYPSIN (STL) GREEN LI/HEP BLD/PLAS PLASMA SP [facility] December 19, 2023 12:00 AM Laboratory - Chemistry Order ACTIN (SMOOTHMUSCLE) ANTIBODY IGG GOLD/RED SST SERUM SP [facility] December 19, 2023 12:00 AM Laboratory - Chemistry Order CERULOPLASMIN (STL-PB) GOLD/RED SST SERUM SP [facility] Lab Results: +/- 30 days [...] Type Comment Feb 23, 2024 11:19 AM [facility] CONJ. BILIRUBIN PLASMA Specimen Type: PLASMA Comment: LDL Unable to be calculated LDL calculation invalid when Triglyceride exceeds 250 mg/dl Ordering Provider: NIKA SANCHEZ Report Released Date/Time: Feb 23, 2024 10:51 AM Reporting Lab: [facility] [address] [facility] [address] Performing Lab: [facility] [address] [facility] [address] CONJ. BILIRUBIN 0.2 mg/dL 0-0.5 Feb 23, 2024 11:19 AM [facility] PT/INR NEW (STL-MA) PLASMA Specimen Type: PLAS MA No comment entered. Ordering Provider: NIKA SANCHEZ Report Released Date/Time: Feb 23, 2024 10:51 AM Reporting Lab: [facility] [address] [facility] [address] Performing Lab: [facility] [address] [facility] [address] PROTIME 12.2 s 9.4-12.5 INR VALUE 1.1 {INR} Feb 23, 2024 11:19 AM [facility] LIPID PANEL (STL) PLASMA Specimen Type: PLASM A Comment: LDL Unable to be calculated LDL calculation invalid when Triglyceride exceeds 250 mg/dl Ordering Provider: NIKA SANCHEZ Report Released Date/Time: Feb 23, 2024 10:51 AM Reporting Lab: [address] [address] Performing Lab: [address] [address] CHOLESTEROL 153 mg/dL 0-200 TRIGLYCERIDE 373 mg/dL H 0-150 DIRECT LDL 64 mg/dL L >100 CALCULATED LDL comment mg/dL HDL(New) 37 mg/dL L >40 Feb 23, 2024 11:19 AM [facility] COMPREHENSIVE METABOLIC PANEL PLASMA Specimen Type: PLASMA Comment: LDL Unable to be calculated LDL calculation invalid when Triglyceride exceeds 250 mg/dl Ordering Provider: NIKA SANCHEZ Report Released Date/Time: Feb 23, 2024 10:51 AM Reporting Lab: [address] [address] Performing Lab: [address] [address] CREATININE 0.85 mg/dL 0.7-1.3 UREA NITROGEN 14.4 [...] 102.6 >60 Feb 23, 2024 11:19 AM [facility] CBC BLOOD Specimen Type: BLOOD No comment entered. Ordering Provider: NIKA SANCHEZ Report Released Date/Time: Feb 23, 2024 10:51 AM Reporting Lab: [facility] [address] [facility] [address] Performing Lab: [facility] [address] [facility] [address] WBC 7.1 10*3/uL 3.6-11.2 RBC 5.10 10*6/uL [...] 2023 01:09 PM VA-TOBACCO USER EVERY DAY [facility] Tobacco Use History This section includes a history of the smoking, or tobacco-related health factors, that were collected on or before the date of the Encounter. The data comes from the [place] facility where the Encounter took place. Date/Time Smoking Status/Tobacco Use Comment F ranjit Jul 04, 2023 01:09 PM VA-TOBACCO USE ADVICE [facility] Jul 04, 2023 01:09 PM VA-TOBACCO USE RAW PRODUCTS DIRECTOR NO [facility] Jul 04, 2023 01:09 PM VA-TOBACCO USE MED NO [facility] Jul 04, 2023 01:09 PM [place]-TOBACCO USE [place] 30 MIN OF WAKEUP [facility] Jul 04, 2023 01:09 PM VA-TOBACCO USER EVERY DAY [facility] Jul 28, 2022 01:00 PM VA-TOBACCO FORMER USER [facility] Jul 28, 2022 01:00 PM VA-TOBACCO QUIT 15 YRS OR MORE [facility] Jul 13, 2021 01:00 PM VA-TOBACCO DOESNT USE [place] 30 MIN WAKEUP [facility] Jul 13, 2021 01:00 PM VA-TOBACCO USE 30 YEARS OR MORE [facility] Jul 13, 2021 01:00 PM VA-TOBACCO USE ADVICE [facility] Jul 13, 2021 01:00 PM VA-TOBACCO USE RAW PRODUCTS DIRECTOR NO [facility] Jul 13, 2021 01:00 PM VA-TOBACCO USE MED NO [facility] Jul 13, 2021 01:00 PM VA-TOBACCO USER SOME DAYS [facility] May 20, 2020 03:30 PM VA-TOBACCO DOESNT USE [place] 30 MIN WAKEUP [facility] May 20, 2020 03:30 PM VA-TOBACCO USE > 1 5 LESS THAN 30 YEARS [facility] May 20, 2020 03:30 PM VA-TOBACCO USE ADVICE [facility] May 20, 2020 03:30 PM VA-TOBACCO USE RAW PRODUCTS DIRECTOR NO [facility] May 20, 2020 03:30 PM VA-TOBACCO USE MED NO [facility] May 20, 2020 03:30 PM VA-TOBACCO USER SOME DAYS [facility] Jun 26, 2018 11:30 AM VA-TOBACCO FORMER USER [facility] Jun 26, 2018 11:30 AM VA-TOBACCO QUIT 15 YRS OR MORE [facility] Mar 02, 2017 07:35 AM QUIT TOBACCO >7 YEARS AGO [facility] May 25, 2016 05:48 AM CURRENT TOBACCO USER [facility] May 25, 2016 05:48 AM TOBACCO MEDS OFFER ED BUT DECLINED [facility] Jun 23, 2015 02:29 PM QUIT TOBACCO >7 YEARS AGO [facility] Sep 12, 2014 06:15 AM CURRENT TOBACCO USER [facility] Sep 12, 2014 06:15 AM QUIT TOBACCO >7 YEARS AGO [facility] Sep 12, 2014 06:15 AM TOBACCO MEDS OFFER ED BUT DECLINED [facility] Jun 25, 2013 02:47 PM QUIT TOBACCO >7 YEARS AGO [facility] May 04, 2010 12:36 PM LIFETIME NON-USER OF TOBACCO [facility] Jul 30, 2009 11:12 AM CURRENT TOBACCO USER [facility] Mar 20, 2008 01:00 PM CURRENT TOBACCO USER [facility] Mar 20, 2008 01:[address] [facility] SMOKING [facility]INIC [facility] Mar 20, 2008 01:00 PM TOBACCO OFFERRED P T MEDS (PROVIDER) [facility] Mar 06, 2007 10:38 AM QUIT TOBACCO >7 YEARS AGO [facility] May 09, 2006 09:29 AM CURRENT TOBACCO USER [facility] Aug 27, 2004 10:41 AM CURRENT TOBACCO USER [facility] Aug 27, 2004 10:41 AM SMOKER <10 [facility] Advance Directives: All historical and [...] 23, [address] CJ [address] [facility] May 24, 2004 ADVANCE DIRECTIVE MITCH ZEE [facility] May 24, 2000 ADVANCE DIRECTIVE MICHELE CENTENO IS [facility] Nov 11, 1996 ADVANCE DIRECTIVE MAGGIE DRAKE [facility] December 08, 1995 ADVANCE DIRECTIVE KI SANTOYO [facility] Radiology Reports: +/- 30 days of [...] the Encounter. The data comes from all [place] treatment facilities. Date/Time Radiology Report Provider Source Jan 15, 2024 12:42 PM US ABDOMEN LIMITED W/BLOOD FLOW DOPPLER: BETTY HAAS [id number] -1970 M Exm Date: JAN 15, 2024@12:42 Req Phys: KOSTA SOTO Pat Loc: [facility]-GI CONSULT (Req'g Loc) Img Loc: [facility]ULTRASOUND Service: Unknown [address] [address] (Case [id number] COMPLETE) US ABDOMEN LTD, SINGLE ORG OR CHRISTIN(US Detailed) CPT:12131 Reason for Study: elevated LFTs (Case [id number] COMPLETE) US BLOOD FLOW ABD/RENAL (LTD) (US Detailed) CPT:16080 Clinical History: Organ to Image: Liver Reason for exam: elevated LFTs Report Status: Verified Date Reported: JAN 15, 2024 Date Verified: JAN 15, 2024 Medical Records Field Technician E-Sig:/ES/DUNIA LUNA Report: CASE #: [id number], [id number] EXAMINATION: Limited sonogram of the right upper [...] Report dictated by Lucien Ruiz (vice president media relations) I, Dunia Luna, have reviewed the images and report and concur with these findings. Primary Interpreting Staff: DUNIA LUNA MD (Medical Records Field Technician) Primary Interpreting Resident: LUCIEN RUIZ MD /DUNIA MARTINES [facility] Jan 01, 2024 07:18 PM ANKLE,RIGHT, 3 VIEWS: BETTY HAAS [id number] -1970 M Exm Date: JAN 01, 2024@19:18 Req Phys: MONICA JULES Loc: [facility]-EMERGENCY CULINARY DIRECTOR (Req'g Img Loc: [facility]-MAIN RADIOLOGY SUITE Service: [facility], [facility] [address] [place] [address] (Case [id number] COMPLETE) ANKLE,RIGHT, 3 VIEWS (RAD Detailed) CPT:67039 Proc Modifiers : RIGHT Reason for Study: Fell Clinical History: Right anterior aspect just proximal of mid-point Report Status: Verified Date Reported: JAN 01, 2024 Date Verified: JAN 01, 2024 Medical Records Field Technician E-Sig: Report: KNEE,RIGHT,1 OR 2 VIEWS, TIBIA & FIBULA,RIGHT, 2 VIEWS, ANKLE,RIGHT, 3 VIEWS HISTORY: Right lower leg. Right anterior aspect just proximal of mid-point COMPARISON: Right knee radiograph 06/04/2018 TECHNIQUE: 2 views of the right knee, 4 views of the right tibia/fibula, and 3 views of the right ankle, submitted to the [place] National Teleradiology Program (NTP) for interpretation. FINDINGS: [...] and ankle. READING PHYSICIAN: Rogelio Alford MD -[id number] 01/01/2024 18:34 PDT [facility] National Teleradiology Program [phone] (For Medical Practitioner Use Only) Attention Patients / Veterans: If you have questions or concerns about these test results, please contact your ordering provider or primary care team. Primary Interpreting Staff: RADIOLOGY,OUTSIDE SERVICE, Staff Physician / RADIOLOGY,OUTSIDE SERVICE [facility] Jan 01, 2024 07:18 PM KNEE,RIGHT,1 OR 2 VIEWS: BETTY HAASLE [id number] -1970 M Exm Date: JAN 01, 2024@19:18 Req Phys: MONICA JULES Loc: [place]-EMERGENCY CULINARY DIRECTOR (Req'g Img Loc: -MAIN RADIOLOGY SUITE Service: [facility], [facility] [address] [place] [address] (Case [id number] COMPLETE) KNEE,RIGHT,1 OR 2 VIEWS (RAD Detailed) CPT:35570 Proc Modifiers : RIGHT, LATERAL Reason for Study: right lower leg Clinical History: Right anterior aspect just proximal of mid-point Report Status: Verified Date Reported: JAN 01, 2024 Date Verified: JAN 01, 2024 Medical Records Field Technician E-Sig: Report: KNEE,RIGHT,1 OR 2 VIEWS, TIBIA & FIBULA,RIGHT, 2 VIEWS, ANKLE,RIGHT, 3 VIEWS HISTORY: Right lower leg. Right anterior aspect just proximal of mid-point COMPARISON: Right knee radiograph 06/04/2018 TECHNIQUE: 2 views of the right knee, 4 views of the right tibia/fibula, and 3 views of the right ankle, submitted to the [place] National Teleradiology Program (NTP) for interpretation. FINDINGS: [...] and ankle. READING PHYSICIAN: Rogelio Alford MD -[id number] 01/01/2024 18:34 PDT [facility] National Teleradiology Program [phone] (For Medical Practitioner Use Only) Attention Patients / Veterans: If you have questions or concerns about these test results, please contact your ordering provider or primary care team. Primary Interpreting Staff: RADIOLOGY,OUTSIDE SERVICE, Staff Physician / RADIOLOGY,OUTSIDE SERVICE [facility] Jan 01, 2024 07:18 PM TIBIA & FIBULA,RIGHT, 2 VIEWS: SAMINABETTY [id number] -1970 M Exm Date: JAN 01, 2024@19:18 Req Phys: MONICA JULES Loc: [place]-EMERGENCY CULINARY DIRECTOR (Req'g Img Loc: -MAIN RADIOLOGY SUITE Service: [facility], [facility] [address] [place] [address] (Case [id number] COMPLETE) TIBIA & FIBULA,RIGHT, 2 VIEWS (RAD Detailed) CPT:56902 Proc Modifiers : RIGHT Reason for Study: Right lower leg Clinical History: Right anterior aspect just proximal of mid-point Report Status: Verified Date Reported: JAN 01, 2024 Date Verified: JAN 01, 2024 Medical Records Field Technician E-Sig: Report: KNEE,RIGHT,1 OR 2 VIEWS, TIBIA & FIBULA,RIGHT, 2 VIEWS, ANKLE,RIGHT, 3 VIEWS HISTORY: Right lower leg. Right anterior aspect just proximal of mid-point COMPARISON: Right knee radiograph 06/04/2018 TECHNIQUE: 2 views of the right knee, 4 views of the right tibia/fibula, and 3 views of the right ankle, submitted to the [place] National Teleradiology Program (NTP) for interpretation. FINDINGS: [...] and ankle. READING PHYSICIAN: Rogelio Alford MD -[id number] 01/01/2024 18:34 PDT [facility] National Teleradiology Program [phone] (For Medical Practitioner Use Only) Attention Patients / Veterans: If you have questions or concerns about these test results, please contact your ordering provider or primary care team. Primary Interpreting Staff: RADIOLOGY,OUTSIDE SERVICE, Staff Physician / RADIOLOGY,OUTSIDE SERVICE [facility] Encounter Notes: All associated encounter notes This section contains the clinical notes associated to the Encounter. Date/Time Encounter Note(s) Provider Source Jan 30, 2024 04:02 PM PSYCHOLOGY NOTE: LOCAL TITLE: TRP PSYCHOTHERAPY [facility] STANDARD TITLE: PSYCHOLOGY NOTE DATE OF NOTE: JAN 30, 2024@16:02 ENTRY DATE: JAN 30, 2024@16:02:24 AUTHOR: FRANKLIN HASSAN EXP COSIGNER: URGENCY: STATUS: COMPLETED PCT Psychotherapy Tracking Today's psychotherapy session was part of a standardized episode of Other PTSD Psychotherapy (e.g. supportive therapy): Other: Present Centered Psychotherapy Measurement Based Care (MBC): MBC Act Following discussion of Citra's reported outcomes, we discussed the impact on treatment goals. As a result the treatment plan will remain the same. PSYCHOTHERAPY PROGRESS NOTE NATURE OF ENCOUNTER: fam psychotherapy TIME SPENT WITH PATIENT (Minutes): 55 SESSION NUMBER: SESSION FORMAT: [ ] Onak-ir-Vewg [ X] Video Telehealth [ ] Phone [...] developments since last contact [X ] Specify: In contrast to last session (when he was sounding quite good), feels more down today. Struggling with his decline in physical fx and limitations 2/2 to deteriorating health. Just got back from camping and remains acutely aware of just how much he is reliant on others for everything he used to do for himself. Produces a lot of frustration and is compounded by chronic pain. Rpts his sleep is impaired (as is fairly typical) and that he is having dreams of his leaving him d/t the issues mentioned above. He is getting some physical issues addressed soon to help with sexual intimacy as he has been feeling bad about that component of his life as well so that's a plus. Getting a cataract removed soon as well. Feels its one thing after the next with his health. Still searching for the reason for cont. unexplained loss of csness. TYPE OF INTERVENTIONS PROVIDED BY THERAPIST: [ ]Rapport Building [ ] Shared decision-making regarding goals of care [X ] Psychotherapy (Specify modality): Present centered therapy/solution psychotherapy [ ] Health Psychology Interventions [ ] Graduation Planning [ ] Other: DESCRIPTION OF INTERVENTIONS PROVIDED BY THERAPIST: He was more acutely upset about his day-to-day function and loss of independence today and this is an increasingly relevant theme as his medical health cont. to struggle. Feels sad and frustrated and while he refers to this as depression, we discuss the grief process that is happening as he realistically struggles to cope with declining function and increased dependence. 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 Cont. to reinforced the 's proactive steps towards constructive coping and problem-solving. ASSESSMENT MEASURES USED THIS SESSION: Measures/Scores: [ ] Results are located in Mental Health Diagnostic Study Note Measures not collected/administered this session: Rationale and plan for next administration: X future session OR, Efforts made to increase measurement: ___ Symptom review completed in Progress Towards Goals MENTAL STATUS/PRESENTATION: Citra sounds more somber with approp. affect today. Cont. to flatly [...] current level of care. -Comments: [ ] Citra IS considered to be at INCREASED RISK for suicide or homicide based upon: -Actions/interventions taken to address risk and prevent harm include: -Emergency protocols initiated were: -Comments: Emergency Services: Citra voiced understanding and willingness to go to the [place] emergency room during crisis or to utilize nearest hospital emergency services as needed. Citra has been given the 's Crisis Hotline number. MEASURABLE TREATMENT GOALS FOR THIS EPISODE OF CARE: To reduce PTSD and depressive/adjustment symptoms and impairments in functioning COLLABORATIVE RECOMMENDATIONS/PLAN: Assigned Therapy Tasks: [ X] Collaboratively discussed outcomes related to assessment and treatment progress. Based on this discussion: [ ] No changes to plan of care. Citra expressed agreement with therapy tasks and pekrnh-tp-zkyeod plan. [X ] Recommend changes to plan of care: Reviewed proposed changes. Discussed potential benefits, risks, and complications. We will be tightening the session interval temporarily until such time as we collaboratively feel he can go back to normal interval. agreed to proceed with changes. [ X] YES [ ] NO Comments: RTC on 03/05/24@1500 via C /los/ FRANKLIN HASSAN PSY.D. Psychologist, [facility] Signed: 01/30/2024 16:[address] [facility]
--- OUTSIDE RECORDS SUMMARY | 2024-11-30 15:28 | XMS_ITS | Encounter Summary ---
Author Name Department [facility] [place] [facility] [place] Organization [facility] of [place]) Address [address] [place] [address] Care Team Providers Care Forensic Manager Name Role Phone YONATHAN LINDSAY Primary Care Provider OMEGA Bethea Unavailable Unavailable Selected Encounter This section includes the information on record at [place] for the Encounter. Date/Time Encounter Type Encounter Description Reason Pro vider Source Nov 08, 2024 02:37 PM Outpatient Encounter [facility] CONSULT IHE Encounter [...] 13, 2024 12:00 PM [facility] Nov 13, 2024 02:00 PM AMBULATORY - MEDICINE [facility] November 29, 2024 11:15 AM AMBULATORY - REHAB MEDICIN [facility] December 16, 2024 02:30 PM AMBULATORY - MEDICINE [facility] December 17, 2024 02:00 PM [facility] Jan 13, 2025 11:15 AM AMBULATORY - MEDICINE [facility] Feb 13, 2025 02:00 PM AMBULATORY - MEDICINE [facility] Mar 24, 2025 10:30 AM AMBULATORY - NONE [facility] Apr 11, 2025 11:00 AM AMBULATORY - MEDICINE [facility] Active, Pending, and Scheduled Orders This section includes a listing of several types of active, pending, and scheduled orders, including clinic medications orders, diagnostic test orders, procedure orders and consult orders; where the start date of the order is 45 days before the date of the Encounter or 45 days after the date of theEncounter. The data comes from all [place] treatment facilities. Test Date/Time Test Type Test Details Facility Name Oct 07, 2024 11:59 AM Consult Order [facility] Oct 07, 2024 11:59 AM Consult Order [facility] DENTAL SPEC [facility] Lab Results: +/- 30 days of [...] Type Comment Nov 13, 2024 02:35 PM [facility] HGA1C BLOOD Specimen Type: BLOOD No comment entered. Ordering Provider: RAKEL TORRES Report Released Date/Time: Nov 13, 2024 02:28 PM Reporting Lab: [facility] [address] [facility] [address] Performing Lab: [facility] [address] [facility] [address] HGA1C 7.5 H 4.0-6.0 Nov 13, 2024 02:35 PM [facility] VITAMIN D, 25-HYDROXY SERUM Specimen Type: SE RUM No comment entered. Ordering Provider: LENNARTZ,RAKEL SALEEM Report Released Date/Time: Nov 13, 2024 02:33 PM Reporting Lab: [facility] [address] [facility] [address] Performing Lab: [address] [address] VITAMIN D, 25-HYDROXY 35.4 ng/mL 30-96 Oct 25, 2024 11:20 AM [facility] CONJ. BILIRUBIN PLASMA Specimen Type: PLASM A Comment: LDL calculation invalid when Triglyceride exceeds 250 mg/dl Ordering Provider: NIKA SANCHEZ Report Released Date/Time: Oct 25, 2024 10:53 AM Reporting Lab: [address] [address] Performing Lab: [address] [address] CONJ. BILIRUBIN 0.2 mg/dL 0-0.5 Oct 25, 2024 11:20 AM [facility] PT/INR NEW (STL-MA) PLASMA Specimen Type: PLAS MA No comment entered. Ordering Provider: NIKA SANCHEZ Report Released Date/Time: Oct 25, 2024 10:53 AM Reporting Lab: [address] [address] Performing Lab: [address] [address] PROTIME 12.5 s 9.4-12.5 INR VALUE 1.1 {INR} Oct 25, 2024 11:20 AM [facility] ALPHA-FETOPROTEIN(STL-PB) PLASMA Specimen Type : PLASMA No comment entered. Ordering Provider: NIKA SANCHEZ Report Released Date/Time: Oct 25, 2024 10:53 AM Reporting Lab: [address] [address] Performing Lab: [address] [address] ALPHA-FETOPROTEIN(STL-PB) <2.00 ng/mL L 1- 8.78 Oct 25, 2024 11:20 AM [facility] LIPID PANEL (STL) PLASMA Specimen Type: PLASM A Comment: LDL calculation invalid when Triglyceride exceeds 250 mg/dl Ordering Provider: NIKA SANCHEZ Report Released Date/Time: Oct 25, 2024 10:53 AM Reporting Lab: [facility] [address] [facility] [address] Performing Lab: [address] [address] CHOLESTEROL 158 mg/dL 0-200 TRIGLYCERIDE 401 mg/dL H 0-150 DIRECT LDL 73 mg/dL L >100 CALCULATED LDL comment mg/dL HDL(New) 38 mg/dL L >40 Oct 25, 2024 11:20 AM [facility] COMPREHENSIVE METABOLIC PANEL PLASMA Specimen Type: PLASMA Comment: LDL calculation invalid when Triglyceride exceeds 250 mg/dl Ordering Provider: NIKA SANCHEZ Report Released Date/Time: Oct 25, 2024 10:53 AM Reporting Lab: [address] [address] Performing Lab: [address] [address] CREATININE 0.70 mg/dL 0.7-1.3 UREA NITROGEN 13.9 [...] 108.1 >60 Oct 25, 2024 11:20 AM [facility] CBC BLOOD Specimen Type: BLOOD No comment entered. Ordering Provider: NIKA SANCHEZ Report Released Date/Time: Oct 25, 2024 10:53 AM Reporting Lab: [facility] [address] [facility] [address] Performing Lab: [facility] [address] [facility] [address] WBC 5.4 10*3/uL 3.6-11.2 RBC 5.06 10*6/uL [...] and tobacco- related health factors from the [facility] where the Encounter took place. Current [...] the Encounter. The data comes from the [facility] where the Encounter took place. Date/Time [...] this document. The data comes from all [place] facilities. Date Advance Directives Provider Source Oct 21, 2022 [place] KO [facility] Sep 23, 2004 ADVANCE DIRECTIVE CJ RUDOLPH [facility] May 24, 2004 ADVANCE DIRECTIVE SAADIAMITCH Brenda [facility] May 24, 2000 ADVANCE DIRECTIVE JACOBOMICHELE R [facility] Nov 11, 1996 ADVANCE DIRECTIVE MAGGIE DRAKE [facility] December 08, 1995 ADVANCE DIRECTIVE KI SANTOYO [facility] Radiology Reports: +/- 30 days of [...] E W/BLOOD FLOW DOPPLER (STL): BETTY HAAS [id number] -1970 Ex Date: NOV 13, 2024@12:14 Req Phys: NIKA SANCHEZ Loc: [place]-HEP MELODY (Req'g Lo Img Loc: [place]-ULTRASOUND [place] Service: Unknown [address] [address] (Case [id number] COMPLETE) US ABDOMEN LTD, SINGLE ORG OR CHRISTIN(US Detailed) CPT:04092 Reason for Study: HCC surveillance (Case [id number] COMPLETE) US BLOOD FLOW ABD/RENAL DOPPLER ((US Detailed) CPT:59040 Clinical History: Report Status: Verified Date Reported: NOV 13, 2024 Date Verified: NOV 13, 2024 Maintenance Helper E-Sig:/ES/RAFAEL WILDER Report: Case [id number], [id number]. US ABDOMEN LTD, SINGLE ORG OR QUADRANT, [...] Primary Interpreting Staff: RAFAEL WILDER, Diagnostic Radiologist (Maintenance Helper) Primary Interpreting Resident: CHRISTINA MALAGON, Vascular & Interventional [employer] Music Teacher /RAFAEL PALOMINO [facility] Encounter Notes: All associated encounter notes This section contains the clinical notes associated to the Encounter. Date/Time Encounter Note(s) Provider Source Nov 08, 2024 02:37 PM LETTERS: LOCAL TITLE: COMMUNITY CARE-REQUEST FOR SERVICES (RFS) LETTER ST STANDARD TITLE: LETTERS DATE OF NOTE: NOV 08, 2024@14:37 ENTRY DATE: NOV 08, 2024@14:37:25 AUTHOR: LOAN GAGE EXP COSIGNER: URGENCY: STATUS: COMPLETED [facility] [address] [place] [address] [address] [place] [address] Dear Provider, Information: Patient Name: BETTY HAAS Date of : Mar [facility] Dental Service has received the request for [id number] Consultation from you for services that were not originally authorized in the [facility] for this . Upon review, the following determination has been made: Service has been denied. Rationale for Decision (choose all that apply): (clinical justification for treatment denials) * Lack of clinical justification/indication * Other: There is in no need for a consultation. The notes indicate provider ARMEN asked for an evaluation of #32 for extraction. This is not a consultation. Also, this was already authorized (the extraction) with sedation and the SRPs on October 07, 2024 in Consult [id number]. Should you have questions, please contact us at [phone] to speak with a patient police service technician. As a reminder, if applicable, return medical records within 30 days for routine services. Sincerely, LOAN GAGE [facility] CARE RN LOAN GAGE [facility]
--- OUTSIDE RECORDS SUMMARY | 2024-11-30 15:29 | XMS_ITS | Encounter Summary ---
Author Name Department of Vetera [place] Affairs [place]) Organization [place] Address [address] [place] [address] Care Team Providers Care Keyseater Operator Name Role Phone YONATHAN CORONEL Primary Care Provider OMEGA Bethea Unavailable Unavailable Selected Encounter This section includes the information on record at [place] for the Encounter. Date/Time Encounter Type Encounter Description Reason Provider Source May 03, 2024 10:30 AM OFFICE O/P EST SF 10 MIN UROLOGY CLINIC ICD-10-CM N52.9 Male erectile dysfunction, unspecified CHARLOTTE GENAO Yumi Encounter Template Text not used by [place] Assessments - Encounter Diagnoses This section includes the primary and secondary diagnoses documented for the Encounter. Date/Time Primary/Secondary Diagnosis Diagnosis Name Provider Source May 03, 2024 11:07 AM PRIMARY Male erectile dysfunction, unspecified CHARLOTTE GENAO [facility] Plan of Treatment: Future Appointments (+ 6 months) and Future Tests (+/- 45 days) The Plan of Treatment section includes future care activities for the patient from all [place] treatmentfacilities. This section includes future appointments and future orders which are active, pending or scheduled. Future Appointments This section includes appointments that were scheduled to occur 6 months from the date of the Encounter, up to a maximum of 20 appointments. The data comes from all [place] treatment facilities. Appointment Date/Time Appointment Type Appointme nt Facility Name May 21, 2024 01:00 PM AMBULATORY - PSYCHIATRY [facility] May 31, 2024 10:30 AM AM[facility]ULATORY - SURGERY [facility] Jun 05, 2024 09:30 AM AMBULATORY - NONE [facility] Jun 14, 2024 11:00 AM AMBULATORY - SURGERY [facility] Jun 17, 2024 03:00 PM AMBULATORY - MEDICINE [facility] Jun 25, 2024 03:00 PM AMBULATORY - PSYCHIATRY [facility] Jul 01, 2024 10:30 AM AMBULATORY - NONE [facility] Jul 08, 2024 10:30 AM AMBULATORY - REHAB MEDICIN E [facility] Jul 18, 2024 02:00 PM AMBULATORY - MEDICINE [facility] Jul 22, 2024 03:00 PM AMBULATORY - NONE [facility] Aug 02, 2024 01:30 PM AMBULATORY - SURGERY [facility] Aug 08, 2024 02:00 PM AMBULATORY - PSYCHIATRY [facility] Aug 09, 2024 02:00 PM AMBULATORY - SURGERY [facility] Aug 13, 2024 03:00 PM AMBULATORY - PSYCHIATRY [facility] Aug 27, 2024 09:30 AM AMBULATORY - REHAB MEDICIN E [facility] Sep 03, 2024 10:30 AM AMBULATORY - NONE [facility] Sep 11, 2024 11:00 AM AMBULATORY - REHAB MEDICIN E [facility] Sep 12, 2024 02:30 PM AMBULATORY - MEDICINE [facility] Sep 27, 2024 10:15 AM AMBULATORY - REHAB MEDICIN E [facility] Oct 10, 2024 02:00 PM AMBULATORY - PSYCHIATRY [facility] Lab Results: +/- 30 days [...] Type Comment Apr 20, 2024 11:39 AM [facility] GLUCOSE,BLOOD-poct (STL) BLOOD Specimen Type: BLOOD Comment: Test Performed by: [id number] Meter #: [id number] Ordering Provider: KIKI PINA Report Released Date/Time: Apr 20, 2024 12:07 PM Reporting Lab: [place] [address] [facility] [address] Performing Lab: [address] [address] GLUCOSE,BLOOD-poct (STL) 266 mg/dL H 72-Apr 20, 2024 05:26 AM [facility] GLUCOSE,BLOOD-poct (STL) BLOOD Specimen Type: BLOOD Comment: Test Performed by: [id number] Meter #: [id number] Ordering Provider: KIKI PINA Report Released Date/Time: Apr 20, 2024 05:38 AM Reporting Lab: [place] [address] [facility] [address] Performing Lab: [address] [address] GLUCOSE,BLOOD-poct (STL) 157 mg/dL H -Apr 19, 2024 08:45 PM [facility] GLUCOSE,BLOOD-poct (STL) BLOOD Specimen Type: BLOOD Comment: Test Performed by: [id number] Meter #: [id number] Ordering Provider: KIKI PINA Report Released Date/Time: Apr 19, 2024 10:10 PM Reporting Lab: [place] [address] [facility] [address] Performing Lab: [place] [address] [facility] [address] GLUCOSE,BLOOD-poct (STL) 232 mg/dL H 72-Apr 19, 2024 05:13 PM [facility] GLUCOSE,BLOOD-poct (STL) BLOOD Specimen Type: BLOOD Comment: Test Performed by: [id number] Meter #: [id number] Ordering Provider: KIKI PINA Report Released Date/Time: Apr 19, 2024 05:24 PM Reporting Lab: [place] [address] [facility] [address] Performing Lab: [address] [address] GLUCOSE,BLOOD-poct (STL) 176 mg/dL H 72-99 Apr 19, 2024 03:32 PM [facility] GLUCOSE,BLOOD-poct (STL) BLOOD Specimen Type: BLOOD Comment: Test Performed by: [id number] Meter #: [id number] Ordering Provider: LAUREN MOREL Report Released Date/Time: Apr 19, 2024 03:43 PM Reporting Lab: [address] [address] Performing Lab: [address] [address] GLUCOSE,BLOOD-poct (STL) 155 mg/dL H 72-99 Apr 19, 2024 02:56 PM [facility] MRSA SURVL NARES DNA NARES Specimen [...] Apr 19, 2024 04:55 PM Reporting Lab: [place] [address] [facility] [address] Performing Lab: [address] [address] MRSA SURVL NARES DNA Negative Negative Apr 19, 2024 10:33 AM [facility] GLUCOSE,BLOOD-poct (STL) BLOOD Specimen Type: BLOOD Comment: Test Performed by: [id number] Meter #: [id number] Ordering Provider: YONATHAN CORONEL Report Released Date/Time: Apr 19, 2024 10:50 AM Reporting Lab: [address] [address] Performing Lab: [address] [address] GLUCOSE,BLOOD-poct (STL) 226 mg/dL H 72-99 Apr 08, 2024 03:28 PM [facility] PT/INR NEW (STL-MA) PLASMA Specimen Type: PLAS MA Comment: ~For Test: BASIC METABOLIC PANEL ~pre-op Ordering Provider: NOAH SANCHEZ Report Released Date/Time: Apr 02, 2024 12:39 PM Reporting Lab: [address] [address] Performing Lab: [address] [address] PROTIME 12.5 s 9.4-12.5 INR VALUE 1.1 {INR} Apr 08, 2024 03:28 PM [facility] BASIC METABOLIC PANEL PLASMA Specimen Type: PL ASMA Comment: ~For Test: BASIC METABOLIC PANEL ~pre-op Ordering Provider: NOAH SANCHEZ Report Released Date/Time: Apr 02, 2024 12:39 PM Reporting Lab: [address] [address] Performing Lab: [address] [address] CREATININE 1.59 mg/dL H 0.7-1.3 UREA NITROGEN 13.7 mg/dL 9.0-25.0 GLUCOSE 234 mg/dL H 72-99 SODIUM 139 meq/L 136-145 POTASSIUM 4.3 meq/L 3.5-5 CHLORIDE 104 meq/L 98-107 CARBON DIOXIDE 22 meq/L 22-31 CALCIUM 9.6 mg/dL 8.4-10.4 EGFR (CKD-EPI 2020) 50.6 >60 Apr 08, 2024 03:28 PM [facility] CBC BLOOD Specimen Type: BLOOD Comment: ~For Test: BASIC METABOLIC PANEL ~pre-op Ordering Provider: NOAH SANCHEZ Report Released Date/Time: Apr 02, 2024 12:39 PM Reporting Lab: [facility] [address] [facility] [address] Performing Lab: [facility] [address] [facility] [address] WBC 7.3 10*3/uL 3.6-11.2 RBC 5.23 10*6/uL [...] Pain Height Weight Body Mass Index Source May 03, 2024 10:44 AM 97.7 82 138/76 18 95 9 72 284.4 39 [facility] Social History: Smoking Status (Most current) and Tobacco Use (All prior to encounter date) This section includes the most current, and the historical, smoking and tobacco- related health factors from the [place] facility where the Encounter took place. Current Smoking Status This section includes the most current smoking, or tobacco-related health factor, from the [place] facility where the Encounter took place. Date/Time Current Smoking Status Comment Facility May 26, 2000 01:36 PM CURRENT NON-TOBACC O USER-HX OF USE stop smoking 10yrs ago,started smoking at 14yrs,smoked 2packs a day [facility] Tobacco Use History This section includes a history of the smoking, or tobacco-related health factors, that were collected on or before the date of the Encounter. The data comes from the [place] facility where the Encounter took place. Date/Time Smoking Status/Tobacco Use Comment F acility Mar 07, 2000 12:35 PM CURRENT NON-TOBACC O USER-HX OF USE [facility] Advance Directives: All historical and current Section Date Range: From patient's date of to the date document was created. This section includes ALL of a patient's completed or amended [place] Advance and Rescinded Directives. The entries below indicate that a directive exists for the patient, but an actual copy is not included with this document. The data comes from all [facility]. Date Advance Directives Provider Source Oct 21, 2022 FRANKLIN KO [facility] Sep 23, 2004 ADVANCE DIRECTIVE CJ RUDOLPH [facility] May 24, 2004 ADVANCE DIRECTIVE MITCH ZEE [facility] May 24, 2000 ADVANCE DIRECTIVE MICHELE CENTENO [facility] IS [facility] Nov 11, 1996 ADVANCE DIRECTIVE MAGGIE DRAKE [facility] December 08, 1995 ADVANCE DIRECTIVE KI SANTOYO [facility] Radiology Reports: +/- 30 days [...] the Encounter. The data comes from all [place] treatment facilities. Date/Time Radiology Report Provider Source Apr 08, 2024 03:15 PM CHEST X-RAY, 2 VIE WS: BETTY HAAS [id number] -1970 M Exm Date: APR 08, 2024@15:15 Req Phys: DANIELNOAH Loc: [place]-PRE-OP EVAL NURSING AM (Req Img Loc: [place]-MAIN RADIOLOGY SUITE Service: [facility], [facility] [address] [place] [address] (Case [id number] COMPLETE) CHEST X-RAY, 2 VIEWS (RAD Detailed) CPT:70054 Reason for Study: pre-op Clinical History: Report Status: Verified Date Reported: APR 08, 2024 Date Verified: APR 08, 2024 Precision Instrument Maker And Repairer E-Sig:/ES/[place]lin Hartley MD. FACR. Report: History: pre-op. Comparison: Prior chest examination-03/24/2023. Technique: PA and lateral views. Findings: No pulmonary consolidation, pleural effusion, pneumothorax, cardiomegaly or pulmonary edema is seen. Impression: No acute cardiopulmonary disease is seen. Primary Interpreting Staff: Franklin Hartley MD. FACR, Neuroradiologist (Precision Instrument Maker And Repairer) /FRANKLIN KENDALL [facility] Pathology Reports: +/- [...] the Encounter. The data comes from all [place] treatment facilities. Date/Time Pathology Report Provider Source [...] Performing Laboratory: Surgical Pathology Report Performed By: [address]# [id number] [address] [place] [address] $FTR - - - - - - - - - - - - - - - - - - - - - - - - - - - - - - - - - - - - - - - - (End of report) CHRISTY MALCOLM MD [facility] Date Apr 23, 2024 - - - - - - - - - - - - - - - - - - - - - - - - - - - - - - - - - - - - - - - - BETTY HAAS STANDARD FORM 515 ID:[id number] SEX:M :1970 AGE: 54 LOC:APFEE PCP: Yonathan Coronel NP /los/ CHRISTY MALCOLM Pathologist Signed: 04/23/2024 14:03 CHRISTY MALCOLM [facility] Apr 08, 2024 03:00 PM LR MICROBIOLOGY RE PORT: Accession [UID]: [id number] [[id number]] Received: Apr 08, 2024@15:27 Collection sample: URINE,CLEAN CATCH Collection date: Apr 08, 2024 15:00 Site/Specimen: URINE Provider: NOAH SANCHEZ Test(s) ordered: C&S URINE.................... . completed: Apr 09, 2024 22:40 * BACTERIOLOGY FINAL REPORT => Apr 09, 2024 22:47 TECH CODE: [id number] CULTURE RESULTS: STREP. AGALACTIAE, GRP. B - Quantity: >25,000 - <50,000 CFU/ML Comment: There will be no work up. Bacteriology Remark(s): -- RYAN 04/09/24 -- >25,000 - <50,000 CFU/ML S. AGAL - There will be no work up. <10,000 CFU/ML MIXED GRAM POSITIVE ORGANISM There will be no work up. =--=--=--=--=--=--=--=--= --=--=--=--=--=--=--=--=- -=--=--=--=--=--=--=--=-- =-- Performing Laboratory: Bacteriology Report Performed By: [facility] [address] [place] [address] CLIA# [id number] [address] [address] LUANA CINTRON [facility] Encounter Notes: All associated encounter notes This section contains the clinical notes associated to the Encounter. Date/Time Encounter Note(s) Provider Source May 03, 2024 10:58 AM UROLOGY NOTE: LOCAL TITLE: UROLOGY NOTE STANDARD TITLE: UROLOGY NOTE DATE OF NOTE: MAY 03, 2024@10:58 ENTRY DATE: MAY 03, 2024@10:58:35 AUTHOR: CHARLOTTE GENAO EXP COSIGNER: URGENCY: STATUS: COMPLETED CHIEF COMPLAINT, HPI, EXAM & DATA CC: s/p IPP and penile biopsy COMPLAINTS: Mr Haas is a 54 yo M s/p iPP, who is having continued scrotal swelling and pain. He has been tender and having trouble sleeping at night. APPEARANCE: alert and oriented x3, in penoscrotal incision with mild superficial opening, red but without significant edema or induration. ASSESSME NT (DXS AND PROBLEMS) ------- 54 yo M s/p IPP with appropriate postoeprative course. Patient was encouraged to apply antibiotic ointment and once weekly baths. PLANS--- -RTC in 1 month (MORE INFORMATION) - * LABS------- CREATINECREATININE 1.59 [...] hearing loss 7) Back pain (SNOMED CT 422730013) 8) Benign hypertension (SNOMED CT 84127057) 9) Convulsion 10) Male hypogonadism 11) Conversion disorder (SNOMED CT 429611230) 12) Testicular hypofunction 13) Osteoarthritis of right [...] Fibromyalgia 29) Exposure to potentially hazardous substance MEDICATIONS: Active Outpatient Medications (including Supplies): Active [...] CAPSULE BY ACTIVE MOUTH ONCE A DAY 7) CYANOCOBALAMIN 100MCG [...] STOOL/DIARRHEA. 12) DRESSING,POLYSKIN II 2 X 2.75IN JEFFERY#[id number] USE/APPLY ACTIVE DRESSING(S) TO AFFECTED AREA(S) DIRECTED [...] A ACTIVE DAY TO LOWER CHOLESTEROL 16) GLIPIZIDE 5MG TAB TAKE ONE TABLET BY MOUTH TWO TIMES ACTIVE A DAY BEFORE MEALS TAKE 30 MINUTES BEFORE EATING. 17) GLUCOSE SENSOR FREESTYLE BREN 3 USE SENSOR EVERY ACTIVE 2 WEEKS FOR BLOOD SUGAR MONITORING CHANGE SENSOR/SITE EVERY 14 DAYS. TO REPLACE SENSOR FOR ANY REASON OR FOR TECHNICAL HELP PLEASE CALL BREN HELP DESK: -SPECIFIC PHONE NUMBER: ([phone]). 18) GLUCOSE SENSOR FREESTYLE BREN 3 PLUS USE SENSOR ACTIVE EVERY 15 DAYS FOR BLOOD SUGAR MONITORING CHANGE SENSOR/SITE EVERY 15 DAYS. TO REPLACE SENSOR FOR ANY REASON OR FOR TECHNICAL HELP PLEASE CALL [employer] DESK: -SPECIFIC PHONE NUMBER: ([phone]). 19) IBUPROFEN 600MG TAB TAKE ONE TABLET [...] NEEDED FOR POST-OPERATIVE PAIN MAY CAUSE CONSTIPATION 23) [...] AREA(S) TWICE A DAY 30 Total Medications ROS AND PMFS HISTORY REVIEWED TODAY? INSTRUCTIONS TO > /es/ CHARLOTTE GENAO MD Staff Physician, Urology Signed: 05/03/2024 11:07 CHARLOTTE GENAO [facility]
--- OUTSIDE RECORDS SUMMARY | 2024-11-30 15:29 | XMS_ITS | Encounter Summary ---
Author Name [facility] [place] Organization [facility] [place] Address [address] [place] [address] Care Team Providers Care Angular Developer Name Role Phone YONATHAN LINDSAY Primary Care Provider OMEGA Bethea Unavailable Unavailable Selected Encounter This section includes the information on record at [place] for the Encounter. Date/Time Encounter Type Encounter Description Reason Provider Source May 31, 2024 10:30 AM OFFICE O/P [facility] ICD-10-CM N52.9 Male erectile dysfunction, unspecified CHARLOTTE GENAO Yumi Encounter Template Text not used by [place] Assessments - Encounter Diagnoses This section includes the primary and secondary diagnoses documented for the Encounter. Date/Time Primary/Secondary Diagnosis Diagnosis Name Provider Source May 31, 2024 11:29 AM PRIMARY Male erectile dysfunction, unspecified CHARLOTTE GENAO [facility] Plan of Treatment: Future Appointments [...] Appointment Type Appointme nt Facility Name Jun 05, 2024 09:30 AM AMBULATORY - NONE [facility] Jun 14, 2024 11:00 AM AMBULATORY - SURGERY [facility] Jun 17, 2024 03:00 PM AMBULATORY - MEDICINE [facility] Jun 25, 2024 03:00 PM AMBULATORY - PSYCHIATRY [facility] Jul 01, 2024 10:30 AM AMBULATORY - NONE [facility] Jul 08, 2024 10:30 AM AMBULATORY - REHAB MEDICIN E [facility] Jul 18, 2024 02:00 PM AMBULATORY - MEDICINE [facility] Jul 22, 2024 03:00 PM AMBULATORY - NONE [facility] Aug 02, 2024 01:30 PM AMBULATORY - SURGERY [facility] Aug 08, 2024 02:00 PM AMBULATORY - PSYCHIATRY [facility] Aug 09, 2024 02:00 PM AMBULATORY - SURGERY [facility] Aug 13, 2024 03:00 PM AMBULATORY - PSYCHIATRY [facility] Aug 27, 2024 09:30 AM AMBULATORY - REHAB MEDICIN E [facility] Sep 03, 2024 10:30 AM AMBULATORY - NONE [facility] Sep 11, 2024 11:00 AM AMBULATORY - REHAB MEDICIN E [facility] Sep 12, 2024 02:30 PM AMBULATORY - MEDICINE [facility] Sep 27, 2024 10:15 AM AMBULATORY - REHAB MEDICIN E [facility] Oct 10, 2024 02:00 PM AMBULATORY - PSYCHIATRY [facility] Oct 24, 2024 11:00 AM AMBULATORY - REHAB MEDICIN E [facility] Oct 25, 2024 10:30 AM AMBULATORY - MEDICINE [facility] Vital Signs: All taken on the encounter date This section contains inpatient and outpatient Vital Signs collected on the date of the Encounter. Date/Time Temperature Pulse Blood Pressure Respiratory Rate SP02 Pain Height Weight Body Mass Index Source May 31, 2024 10:29 AM 97.2 92 138/79 18 94 282.3 38 [facility] Social History: Smoking Status [...] 21, 2022 [place] KO [facility] Sep 23, 2004 ADVANCE DIRECTIVE CJ RUDOLPH [facility] May 24, 2004 ADVANCE DIRECTIVE MITCH ZEE [facility] May 24, 2000 ADVANCE DIRECTIVE MICHELE CENTENO [facility] Nov 11, 1996 ADVANCE DIRECTIVE MAGGIE DRAKE [facility] December 08, 1995 ADVANCE DIRECTIVE KI SANTOYO [facility] Encounter Notes: All associated encounter notes This section contains the clinical notes associated to the Encounter. Date/Time Encounter Note(s) Provider Source May 31, 2024 11:20 AM UROLOGY NOTE: LOCAL TITLE: UROLOGY NOTE STANDARD TITLE: UROLOGY NOTE DATE OF NOTE: MAY 31, 2024@11:20 ENTRY DATE: MAY 31, 2024@11:20:18 AUTHOR: CHARLOTTE GENAO EXP COSIGNER: URGENCY: STATUS: COMPLETED CHIEF COMPLAINT, HPI, EXAM & DATA CC: s/p IPP mar 2024 COMPLAINTS: Mr Herring returns s/p IPP implant. He reports fully healed penoscrotal incision. He has not felt ready to start inflating implant. APPEARANCE: cylinders excellent position. pump is in appropriate location. glans appears mildly erythema. ASSESSME NT (DXS AND PROBLEMS) ------- 54 yo M s/p IPP with slow recovry, ut appropriate. Patient not yet ready to learn to cycle implant. PLANS--- - RTC in 2 weeks - RTC 1 with device rep for teaching session. - RTC with me in July (MORE INFORMATION) - * LABS------- CREATINECREATININE 1.59 [...] hearing loss 7) Back pain (SNOMED CT 059533609) 8) Benign hypertension (SNOMED CT 18698361) 9) Convulsion 10) Male hypogonadism 11) Conversion disorder (SNOMED CT 407170609) 12) Testicular hypofunction 13) Osteoarthritis of right [...] STOOL/DIARRHEA. 11) DRESSING,POLYSKIN II 2 X 2.75IN JEFFERY#0641 USE/APPLY ACTIVE DRESSING(S) TO AFFECTED AREA(S) DIRECTED [...] FREESTYLE BREN 3 PLUS USE SENSOR ACTIVE (S) EVERY 15 DAYS FOR BLOOD GLUCOSE MONITORING [...] ALCOHOL. DISCONTINUE BEFORE GETTING XRAY DYE. 19) OXYCODONE HCL 5MG TAB TAKE ONE TABLET BY MOUTH EVERY ACTIVE 6 HOURS FOR POST-OPERATIVE PAIN MAY CAUSE CONSTIPATION 20) POLYETHYLENE GLYCOL 3350 ORAL PWDR MIX [...] AREA(S) TWICE A DAY 26 Total Medications ROS AND PMFS HISTORY REVIEWED TODAY? INSTRUCTIONS TO > /es/ CHARLOTTE GENAO MD Staff Physician, Urology Signed: 05/31/2024 11:29 CHARLOTTE GENAO [facility]
--- OUTSIDE RECORDS SUMMARY | 2024-11-30 15:29 | XMS_ITS | Encounter Summary ---
Author Name [facility] Affairs ([place]) Organization Department of Vetera [facility] ([place]) Address [address] [place] [address] Care Team Providers Care Senior Oracle Soa Developer Name Role Phone YONATHAN LINDSAY Primary Care Provider OMEGA Bethea Unavailable Unavailable Selected Encounter This section includes the information on record at [place] for the Encounter. Date/Time Encounter Type Encounter Description Reason Provider Source December 14, 2023 11:00 AM OFFICE O/P EST MOD 30 MIN ENDOCRINOLOGY ICD-10-CM E11.8 Type 2 diabetes mellitus with unspecified complications ALTHEA TORRES PH Yumi Encounter Template Text not used by [place] Assessments - Encounter Diagnoses This section includes the primary and secondary diagnoses documented for the Encounter. Date/Time Primary/Secondary Diagnosis Diagnosis Name Provider Source December 14, 2023 11:38 AM PRIMARY Type 2 diabetes mellitus with unspecified complications KASIE TORRES [facility] December 14, 2023 11:38 AM SECONDARY Essential (primary) hypertension KASIE TORRES [facility] December 14, 2023 11:38 AM SECONDARY Hyperlipidemia, unspecified KASIE TORRES [facility] [facility] December 14, 2023 11:38 AM SECONDARY Rash and other nonspecific skin eruption KASIE TORRES [facility] December 14, 2023 11:38 AM SECONDARY Vitamin D deficiency, unspecified KASIE TORRES [facility] Plan of Treatment: Future Appointments (+ 6 months) and Future Tests (+/- 45 days) The Plan of Treatment section includes future care activities for the [facility] [place] [facility] This section includes future appointments and future orders which are active, pending or scheduled. Future Appointments This section includes appointments that were scheduled to occur 6 months from the date of the Encounter, up to a maximum of 20 appointments. The data comes from all [place] treatment facilities. Appointment Date/Time Appointment Type Appointme nt Facility Name December 15, 2023 06:30 PM AMBULATORY - NONE [facility] December 18, 2023 05:42 PM AMBULATORY - MEDICINE [facility] December 19, 2023 01:00 PM AMBULATORY - MEDICINE [facility] December 19, 2023 03:00 PM AMBULATORY - PSYCHIATRY [facility] December 21, 2023 04:00 PM AMBULATORY - PSYCHIATRY [facility] Jan 01, 2024 07:02 PM AMBULATORY - MEDICINE [facility] Jan 11, 2024 10:15 AM AMBULATORY - MEDICINE [facility] Jan 15, 2024 11:15 AM AMBULATORY - MEDICINE [facility] Jan 15, 2024 01:00 PM AMBULATORY - NONE [facility] Jan 30, 2024 10:00 AM AMBULATORY - SURGERY [facility] Jan 30, 2024 03:00 PM AMBULATORY - PSYCHIATRY [facility] Feb 02, 2024 02:30 PM AMBULATORY - PSYCHIATRY [facility] Feb 08, 2024 01:30 PM AMBULATORY - NONE [facility] Feb 13, 2024 10:00 AM AMBULATORY - NONE [facility] Feb 15, 2024 10:00 AM AMBULATORY - MEDICINE [facility] Feb 19, 2024 11:00 AM AMBULATORY - NONE [facility] Feb 23, 2024 10:30 AM AMBULATORY - MEDICINE [facility] Feb 26, 2024 03:00 PM AMBULATORY - MEDICINE [facility] Mar 05, 2024 03:00 PM AMBULATORY - PSYCHIATRY [facility] Mar 08, 2024 01:00 PM AMBULATORY - PSYCHIATRY [facility] Active, Pending, and Scheduled Orders This section includes a listing of several types of active, pending, and scheduled orders, including clinic medications orders, diagnostic test orders, procedure orders and consult orders; where the start date of the order is 45 days before the date of the Encounter or 45 days after the date of theEncounter. The data comes from all [facility]. Test Date/Time Test Type Test Details Facility Name Nov 28, 2023 12:00 AM Laboratory - Chemistry Order AMMONIA (L-MA) WHITE CAP EDTA PLASMA [facility] December 19, 2023 12:00 AM Laboratory - Chemistry Order ALPHA-1 ANTITRYPSIN (STL) GREEN LI/HEP BLD/PLAS PLASMA SP [facility] December 19, 2023 12:00 AM Laboratory - Chemistry Order ACTIN (SMOOTHMUSCLE) ANTIBODY IGG GOLD/RED SST SERUM SP [facility] December 19, 2023 12:00 AM Laboratory - Chemistry Order ANTI-MITOCHONDRIAL AB (STL) GOLD/RED SST SERUM SP [facility] December 19, 2023 12:00 AM Laboratory - Chemistry Order CERULOPLASMIN (L-PB) GOLD/RED SST SERUM [facility] Lab Results: +/- 30 days of the encounter This section includes the Chemistry and Hematology Lab Results on record with [place] for the patient. Radiology Reports and Pathology Reports are provided separately, in subsequent sections. Lab Results This section contains the Chemistry/Hematology Results that were resulted 30 days before or 30 daysafter the date of the Encounter. Date/Time Source Result Type Result - Unit Interpretation Reference Range Specimen Type Comment December 14, 2023 11:58 AM [facility] B12 SERUM Specimen Type: SERUM No comment entered. Ordering Provider: SHELIA MOREIRA Report Released Date/Time: Nov 28, 2023 11:26 AM Reporting Lab: [place] [address] [place] [address] Performing Lab: [address] [place] [address] B12 423 pg/mL 213-816 December 14, 2023 11:58 AM [facility] COMPREHENSIVE METABOLIC PANEL PLASMA Specimen Type: PLASMA Comment: No hemolysis noted. Ordering Provider: SHELIA MOREIRA Report Released Date/Time: Nov 28, 2023 11:26 AM Reporting Lab: [address] [address] Performing Lab: [address] [address] CREATININE 0.90 mg/dL 0.7-1.3 UREA NITROGEN 12.9 [...] 100.9 >60 December 14, 2023 11:58 AM [facility] CBC BLOOD Specimen Type: BLOOD No comment entered. Ordering Provider: SHELIA MOREIRA Report Released Date/Time: Nov 28, 2023 11:26 AM Reporting Lab: [address] [address] Performing Lab: [address] [address] WBC 5.9 10*3/uL 3.6-11.2 RBC 5.18 10*6/uL [...] 0.00-0. 20 December 14, 2023 11:57 AM [facility] HGA1C BLOOD Specimen Type: BLOOD No comment entered. Ordering Provider: RAKEL TORRES Report Released Date/Time: December 14, 2023 11:26 AM Reporting Lab: [address] [address] Performing Lab: [address] [address] HGA1C 6.8 H 4.0-6.0 December 14, 2023 11:57 AM [facility] VITAMIN D, 25-HYDROXY SERUM Specimen Type: SE RUM No comment entered. Ordering Provider: RAKEL TORRES Report Released Date/Time: December 14, 2023 11:35 AM Reporting Lab: [address] [address] Performing Lab: [address] [address] VITAMIN D, 25-HYDROXY 44.3 ng/mL 30-96 Vital Signs: All taken on the encounter date This section contains inpatient and outpatient Vital Signs collected on the date of the Encounter. Date/Time Temperature Pulse Blood Pressure Respiratory Rate SP02 Pain Height Weight Body Mass Index Source December 14, 2023 11:01 AM 98 76 136/80 18 94 7 276.2 38 [facility] Social History: Smoking Status (Most current) and Tobacco Use (All prior to encounter date) This section includes the most current, and the historical, smoking and tobacco- related health factors from the [place] facility where the Encounter took place. Current Smoking Status This section includes the most current smoking, or tobacco-related health factor, from the [place] facility where the Encounter took place. Date/Time [...] the Encounter. The data comes from the [place] facility where the Encounter took place. Date/Time Smoking Status/Tobacco Use Comment F acility Mar 07, 2000 12:35 PM CURRENT NON-TOBACC O USER-HX OF USE [facility] Advance Directives: All historical and current Section Date Range: From patient's date of to the date document was created. This section includes ALL of a patient's completed or amended [place] Advance and Rescinded Directives. The entries below indicate that a directive exists for the patient, but an actual copy is not included with this document. The data comes from all [facility]. Date Advance Directives Provider Source Oct 21, 2022 FRANKLIN KO [facility] Sep 23, 2004 ADVANCE DIRECTIVE CJ RUDOLPH [facility] May 24, 2004 ADVANCE DIRECTIVE MITCH ZEEU IS [facility] May 24, 2000 ADVANCE DIRECTIVE MICHELE CENTENO [facility] IS [facility] Nov 11, 1996 ADVANCE DIRECTIVE MAGGIE DRAKE [facility] December 08, 1995 ADVANCE DIRECTIVE KI SANTOYO [facility] Radiology Reports: +/- 30 days of [...] the Encounter. The data comes from all [place] treatment facilities. Date/Time Radiology Report Provider Source Jan 01, 2024 07:18 PM ANKLE,RIGHT, 3 VIEWS: BETTY HAAS [id number] -1970 M Ex Date: JAN 01, 2024@19:18 Req Phys: MONICA JULES Loc: [place]-EMERGENCY SENIOR PROJECT ARCHITECT (Req'g Img Loc: [place]-MAIN RADIOLOGY SUITE Service: Unknown [facility] [address] [place] [address] (Case [id number] COMPLETE) ANKLE,RIGHT, 3 VIEWS (RAD Detailed) CPT:98844 Proc Modifiers : RIGHT Reason for Study: Fell Clinical History: Right anterior aspect just proximal of mid-point Report Status: Verified Date Reported: JAN 01, 2024 Date Verified: JAN 01, 2024 City Driver E-Sig: Report: KNEE,RIGHT,1 OR 2 VIEWS, TIBIA & FIBULA,RIGHT, 2 VIEWS, ANKLE,RIGHT, 3 VIEWS HISTORY: Right lower leg. Right anterior aspect just proximal of mid-point COMPARISON: Right knee radiograph 06/04/2018 TECHNIQUE: 2 views of the right knee, 4 views of the right tibia/fibula, and 3 views of the right ankle, submitted to the [place] National Teleradiology Program (NTP) for interpretation. FINDINGS: [...] and ankle. READING PHYSICIAN: Rogelio Alford MD -[id number] 01/01/2024 18:34 PDT [facility] National Teleradiology Program [phone] (For Medical Practitioner Use Only) Attention Patients / Veterans: If you have questions or concerns about these test results, please contact your ordering provider or primary care team. Primary Interpreting Staff: RADIOLOGY,OUTSIDE SERVICE, Staff Physician / RADIOLOGY,OUTSIDE SERVICE [facility] Jan 01, 2024 07:18 PM TIBIA & FIBULA,RIGHT, 2 VIEWS: BETTY HAAS [id number] -1970 M Exm Date: JAN 01, 2024@19:18 Req Phys: MONICA JULES Loc: -EMERGENCY SENIOR PROJECT ARCHITECT (Req'g Img Loc: -MAIN RADIOLOGY SUITE Service: Unknown [facility] [address] [place] [address] (Case [id number] COMPLETE) TIBIA & FIBULA,RIGHT, 2 VIEWS (RAD Detailed) CPT:66695 Proc Modifiers : RIGHT Reason for Study: Right lower leg Clinical History: Right anterior aspect just proximal of mid-point Report Status: Verified Date Reported: JAN 01, 2024 Date Verified: JAN 01, 2024 City Driver E-Sig: Report: KNEE,RIGHT,1 OR 2 VIEWS, TIBIA & FIBULA,RIGHT, 2 VIEWS, ANKLE,RIGHT, 3 VIEWS HISTORY: Right lower leg. Right anterior aspect just proximal of mid-point COMPARISON: Right knee radiograph 06/04/2018 TECHNIQUE: 2 views of the right knee, 4 views of the right tibia/fibula, and 3 views of the right ankle, submitted to the [place] National Teleradiology Program (NTP) for interpretation. FINDINGS: [...] and ankle. READING PHYSICIAN: Rogelio Alford MD -[id number] 01/01/2024 18:34 PDT [facility] National Teleradiology Program [phone] (For Medical Practitioner Use Only) Attention Patients / Veterans: If you have questions or concerns about these test results, please contact your ordering provider or primary care team. Primary Interpreting Staff: RADIOLOGY,OUTSIDE SERVICE, Staff Physician / RADIOLOGY,OUTSIDE SERVICE [facility] Jan 01, 2024 07:18 PM KNEE,RIGHT,1 OR 2 VIEWS: BETTY HAAS [id number] -1970 M Exm Date: JAN 01, 2024@19:18 Req Phys: MONICA JULES Loc: [place]-EMERGENCY SENIOR PROJECT ARCHITECT (Req'g Img Loc: [place]MAIN RADIOLOGY SUITE Service: Unknown [facility] [address] [address] [place] [address] (Case [id number] COMPLETE) KNEE,RIGHT,1 OR 2 VIEWS (RAD Detailed) CPT:14191 Proc Modifiers : RIGHT, LATERAL Reason for Study: right lower leg Clinical History: Right anterior aspect just proximal of mid-point Report Status: Verified Date Reported: JAN 01, 2024 Date Verified: JAN 01, 2024 City Driver E-Sig: Report: KNEE,RIGHT,1 OR 2 VIEWS, TIBIA & FIBULA,RIGHT, 2 VIEWS, ANKLE,RIGHT, 3 VIEWS HISTORY: Right lower leg. Right anterior aspect just proximal of mid-point COMPARISON: Right knee radiograph 06/04/2018 TECHNIQUE: 2 views of the right knee, 4 views of the right tibia/fibula, and 3 views of the right ankle, submitted to the [place] National Teleradiology Program (NTP) for interpretation. FINDINGS: [...] and ankle. READING PHYSICIAN: Rogelio Alford MD -[id number] 01/01/2024 18:34 PDT [facility] National Teleradiology Program [phone] (For Medical Practitioner Use Only) Attention Patients / Veterans: If you have questions or concerns about these test results, please contact your ordering provider or primary care team. Primary Interpreting Staff: RADIOLOGY,OUTSIDE SERVICE, Staff Physician / RADIOLOGY,OUTSIDE SERVICE [facility] Encounter Notes: All associated encounter notes This section contains the clinical notes associated to the Encounter. Date/Time Encounter Note(s) Provider Source December 14, 2023 11:08 AM [facility] NOTE: LOCAL TITLE: ENDOCRINOLOGY OUTPATIENT FOLLOW UP ST STANDARD TITLE: ENDOCRINOLOGY OUTPATIENT NOTE DATE OF NOTE: DECEMBER 14, 2023@11:08 ENTRY DATE: DECEMBER 14, 2023@11:08:18 AUTHOR: RAKEL TORRES EXP COSIGNER: URGENCY: STATUS: COMPLETED ENDOCRINOLOGY OUTPATIENT FOLLOW UP ST Has ADDENDA ENDOCRINOLOGY FOLLOW-UP NOTE == Date of visit: DECEMBER 14, 2023 SUBJECTIVE Source(s) of history: Patient and/or other Reliability of source(s): Reliable CHIEF COMPLAINT: is a 53-year-old patient who is presenting for a follow-up for diabetes. INTERIM HX: Last plan included: -encouraged continued lifestyle and diet changes -improved engagement, A1C increasing- need to be more consistant -activity- increase to 30 minutes a day Current DM Medications- -restart GLARGINE 60 UNITS UNDER THE SKIN ONCE A DAY --- ssplit 30 and 30 -ct METFORMIN HCL 500MG 24HR SA TAB TAKE FOUR TABLETS -ct Empagliflozin 25mg -ct semaglutide 2mg SC weekly [facility] currently taking: metformin 4 tabs daily, jardiance 25mg daily, ozempic 2mg weekly When were you diagnosed with DM: ~2009 What treatments have you tried before: - insulin (does not want to take for fear of needles Have you ever been on insulin: yes, does not Do you ever skip your medication: no How often do you check blood glucose levels: CGM summary over previous 2 weeks Time in range: - Very high (>250): 8% - High (181-250): 43% - Target range (70-180): 49% - Low (54-69): 0% - Very Low (<54): 0% Time CGM in use: 82% GMI: 7.7 Any hypoglycemias/ hypoglycemia unawareness: no Are you on a continuous glucose monitor: no Any complications of diabetes: memory issues Do you check glucose before you drive: yes Do you have any medical alerts/ bracelets that say you are a diabetic: no Are you currently on lipid-lowering therapy: yes Exercise: limited due to fibromyalgia Eye exam: due this year Foot exam: perfomred with PCP INTERIM MEDICAL HISTORY: denies any major medical changes since last visit. HISTORY: Medical History: 1) Abnormal results of liver function studies 2) Diverticulitis 3) Erectile dysfunction 4) Obesity 5) Chest pain 6) Sensory-neural hearing loss 7) Back pain (SNOMED CT 052295051) 8) Benign hypertension (SNOMED CT 12238124) 9) Convulsion 10) Male hypogonadism 11) Conversion [...] Fibromyalgia 29) Exposure to potentially hazardous substance Surgical History: Any surgeries since previous meeting Social History: - Marital status: - Home and environment: lives at home, manages medications - Employment: [employer] - Drugs/ alcohol: denies - Suicide/ depression: denies ROS: GENERAL: denies fatigue, fever, chills, weight loss/weight gain HEENT: denies vision changes, hearing changes, and sinus pressure RESP: Denies cough, shortness of breath, wheezing CARDIO: denies chest pain, claudication, edema, or palpitations GI: denies abdominal pain, blood in stool, constipation, diarrhea, heart burn, loss of appetite, nausea, and vomiting : denies dysuria, polyuria, and increased frequency ENDO: denies polyuria, polydipsia, impotence, cold intolerance, heat intolerance NEURO: denies dizziness, numbness/tingling, ALDRIDGE, seizures, and tremors PSYCH: denies anxiety, depression, suicidal ideation SKIN: denies rash, itching, skin lesions, changes in any previous moles MUS/SKEL: denies muscle cramping, back pain, joint pain Rheum: allergies noted above Active Outpatient Medications (including Supplies): ACCU-CHEK GUIDE (GLUCOSE) TEST STRIP USE 1 STRIP FOR BLOOD ACTIVE TEST TWICE A DAY ALTERNATING TIMES EACH [...] (D3-2,000UNIT) TAB TAKE TWO TABLETS BY ACTIVE (S) MOUTH ONCE A DAY FOR VITAMIN D DEFICIENCY. CPD-NALTREXONE 3MG (LOW DOSE) CAP TAKE 1 CAPSULE BY MOUTH ACTIVE ONCE A DAY CYANOCOBALAMIN 100MCG TAB TAKE ONE TABLET BY MOUTH ONCE A ACTIVE DAY FOR B12 SUPPLEMENTATION CYCLOBENZAPRINE HCL 10MG TAB TAKE ONE TABLET BY MOUTH ACTIVE THREE TIMES A DAY NEEDED FOR MUSCLE SPASM MAY CAUSE DROWSINESS. DO NOT DRINK ALCOHOL WHILE TAKING THIS MEDICATION. DEXTROSE 24GM/31GM SQUEEZE TUBE TAKE 1 TUBE BY MOUTH ONCE ACTIVE A DAY NEEDED REPEAT DOSE IF HYPOGLYCEMIA CONTINUES 15 MINUTES AFTER THE FIRST DOSE. DICLOFENAC NA 1% TOP GEL APPLY 4 GM TO AFFECTED AREA(S) ACTIVE FOUR TIMES A DAY FOR PAIN/INFLAMMATION; NOT MORE THAN 16 GRAMS DAILY TO ANY LOWER EXTREMITY JOINT. NOT MORE THAN 8 GRAMS DAILY TO ANY UPPER EXTREMITY JOINT. MAX 32GM/DAY OVER ALL JOINTS. (MEASURE DOSE WITH RULER ATTACHED INSIDE BOX) DOCUSATE NA 100MG CAP TAKE ONE CAPSULE BY MOUTH TWICE A ACTIVE DAY FOR SOFTENING STOOL HOLD FOR LOOSE STOOL/DIARRHEA. DRESSING,POLYSKIN II 2 X 2.75IN JEFFERY#[id number] USE/APPLY ACTIVE DRESSING(S) TO AFFECTED AREA(S) DIRECTED FOR USE WITH GLUCOSE SENSOR EZETIMIBE 10MG TAB TAKE ONE TABLET BY MOUTH ONCE A DAY TO ACTIVE LOWER CHOLESTEROL FISH OIL 1000MG (500MG DHA/EPA) CAP TAKE TWO CAPSULES BY ACTIVE MOUTH TWICE A DAY TO LOWER TRIGLYCERIDES FLUTICAS 250/SALMETEROL 50 INHL DISK 60 INHALE 1 ACTIVE INHALATION BY ORAL INHALATION TWICE A DAY FOR ASTHMA (OPEN DISKUS; CLICK ONLY ONCE; MAY INHALE TWICE TO COMPLETE DOSE; CLOSE WHEN FINISHED) RINSE MOUTH AND SPIT AFTER EACH USE. GLUCOSE SENSOR FREESTYLE BREN 3 USE SENSOR EVERY 2 ACTIVE WEEKS FOR BLOOD SUGAR MONITORING CHANGE SENSOR/SITE EVERY 14 DAYS. TO REPLACE SENSOR FOR ANY REASON OR FOR TECHNICAL HELP PLEASE CALL [facility] HELP DESK: -SPECIFIC PHONE NUMBER: ([phone]). LIDOCAINE 2.5/PRILOCAINE 2.5% CREAM APPLY LIGHTLY TO ACTIVE AFFECTED AREA(S) TWICE DAILY NEEDED LIDOCAINE 5% [...] AVOID ALCOHOL. DISCONTINUE BEFORE GETTING XRAY DYE. NYSTATIN 335898 UNT/GM CREAM APPLY LIBERALLY TO AFFECTED ACTIVE AREA(S) THREE TIMES A DAY FOR FUNGAL SKIN INFECTION - TOPICAL USE ONLY. POLYETHYLENE GLYCOL 3350 ORAL PWDR MIX AND DRINK 1 CAPFUL ACTIVE BY MOUTH ONCE A DAY NEEDED FOR [...] INJ PEN 3ML INJECT 2MG UNDER THE ACTIVE SKIN EVERY WEEK FOR DIABETES SODIUM CHLORIDE 0.65% SOLN NASAL SPRAY USE 1 SPRAY INTO ACTIVE NOSTRIL(S) EVERY 4 HOURS NEEDED FOR NASAL CONGESTION TRAZODONE HCL 100MG TAB TAKE TWO TABLETS BY MOUTH AT ACTIVE (S) BEDTIME FOR DEPRESSION I have reviewed current medications w/ at this visit. Efficacy and side effects of the medications were reviewed. denies questions, concerns, or problems with medications unless addressed in notes above. Allergies/ Intolerances: NIACIN, SIMVASTATIN, COREG 25MG TABLET, PRAVASTATIN, SHRIMP, ATORVASTATIN ROSUVASTATIN, LOVASTATIN, PITAVASTATIN OBJECTIVE --------- Records reviewed from consulting providers Vitals: Temperature:98 F [36.7 C] (12/14/2023 11:01) HR: 76 (12/14/2023 11:01) BP: Measurement DT BP 12/14/2023 11:01 136/80 11/14/2023 12:55 121/79 10/24/2023 11:45 136/70 Weight: 276.2 lb [125.28 kg] (12/14/2023 11:01) Patient Weight History - Last Four 1. 276.2 lbs. / 125.3 kg. on DECEMBER 14, 2023@11:01:46 2. 272.1 lbs. / 123.4 kg. on NOV 14, 2023@12:55:29 3. 275.9 lbs. / 125.2 kg. on OCT 24, 2023@11:45:57 4. 273.0 lbs. / 123.8 kg. on OCT 06, 2023@13:56:47 BMI: 37.5 PHYSICAL EXAM: General: no distress, well-nourished, oriented x3, normal mood and affect Skin: good turgor, absent of rash, Hair: Normal texture and distribution Nails: Normal color, no deformities HEENT: normocephalic, atraumatic, no obvious masses or lesions, vision intact, hearing intact, mucous membrane moist without lesions, neck is supple without lesions or adenopathy Heart: S1, S2, regular R&R, no murmur or gallop Lungs: CTAB, regular, unlabored Abdomen: Bowel sounds present, no masses or tenderness Extremities: No amputations or deformities Musculoskeletal: normal gait, no obvious defects with movement of extremities Neurologic: CN 2-12 normal, sensations to touch and proprioception normal Psych: oriented x3, memory intact, judgement, insight, and mood within normal limits Labs: A1C: HGA1C 8.0 H % 09/08/2023 13:43 HGA1C 7.7 H % 05/15/2023 15:37 HGA1C 7.2 H % 01/10/2023 14:51 HGA1C 6.9 H % 04/25/2022 14:43 HGA1C 8.2 H % 02/07/2022 15:01 CBC: WBC 7.3 10*3/uL 09/12/2023 20:40 RBC 5.26 10*6/uL 09/12/2023 20:40 HGB 16.4 g/dL 09/12/2023 20:40 HCT 47.2 % 09/12/2023 20:40 MCV 89.7 fL 09/12/2023 20:40 MCH 31.2 pg 09/12/2023 20:40 MCHC 34.7 g/dL 09/12/2023 20:40 RDW 12.6 % 09/12/2023 20:40 PLT 174 10*3/uL 09/12/2023 20:40 MPV 10.4 fL 09/12/2023 20:40 NEUTROPHILS, AUTO % 68 % 09/12/2023 20:40 LYMPHOCYTES, AUTO % 24 % 09/12/2023 20:40 MONOCYTES, AUTO % 6 % 09/12/2023 20:40 EOSINOPHILS, AUTO % 2 % 09/12/2023 20:40 BASOPHILS, AUTO % 1 % 09/12/2023 20:40 IMMATURE GRANS, AUTO % 0.4 % 03/01/2022 15:35 NEUTROPHILS, ABSOLUTE 4.93 10*3/uL 09/12/2023 20:40 LYMPHOCYTES, ABSOLUTE 1.74 10*3/uL 09/12/2023 20:40 MONOCYTES, ABSOLUTE 0.40 10*3/uL 09/12/2023 20:40 EOSINOPHILS, ABSOLUTE 0.11 10*3/uL 09/12/2023 20:40 BASOPHILS, ABSOLUTE 0.05 10*3/uL 09/12/2023 20:40 IMMATURE GRANS, AUTO ABS 0.02 10*3/uL 03/01/2022 15:35 CMP: Collection DT Specimen Test Name Result Units Ref Range 09/12/2023 20:40 PLASMA CREATININE 0.97 mg/dL 0.7 - 1.3 09/12/2023 20:40 PLASMA UREA NITROGEN 9.7 mg/dL 9.0 - 25.0 09/12/2023 20:40 PLASMA GLUCOSE 279 H mg/dL 72 - 99 09/12/2023 20:40 PLASMA SODIUM 137 mEq/L 136 - 145 09/12/2023 20:40 PLASMA POTASSIUM 4.0 mEq/L 3.5 - 5 09/12/2023 20:40 PLASMA CHLORIDE 102 mEq/L 98 - 107 09/12/2023 20:40 PLASMA CARBON DIOXIDE 26 mEq/L 22 - 31 09/12/2023 20:40 PLASMA CALCIUM 9.5 mg/dL 8.4 - 10.4 09/12/2023 20:40 PLASMA PROTEIN 8.3 g/dL 6 - 8.6 09/12/2023 20:40 PLASMA ALBUMIN 4.4 g/dL 3.4 - 5 09/12/2023 20:40 PLASMA TOTAL BILIRUBIN 0.4 mg/dL 0.2 - 1.2 09/12/2023 20:40 PLASMA ALKALINE PHOSPHAT 238 H U/L 40 - 150 09/12/2023 20:40 PLASMA AST/SGOT 26 U/L 5 - 34 09/12/2023 20:40 PLASMA ALT/SGPT 40 U/L 8 - 40 09/12/2023 20:40 PLASMA EGFR (CKD-EPI 202 92.2 Ref: >= 60 Comment: No hemolysis noted. 09/08/2023 13:43 BLOOD HGA1C 8.0 H % 4.0 - 6.0 05/15/2023 15:37 SERUM B12 462 pg/mL 213 - 816 05/15/2023 15:37 SERUM TSH 1.176 uIU/mL 0.470 - 5.000 Comment: The listed sex of this patient may not be a typical Comment: indication for this test. Therefore, reference ranges or Comment: interpretive criteria listed may not be valid. Clinical correlation Comment: suggested. BMP: BMP PC STL No data available for: CREATININE UREA NITROGEN GLUCOSE SODIUM POTASSIUM CHLORIDE CARBON DIOXIDE CALCIUM EGFR (DISCONTINUED 10/28/21) Lipid: TRIGLYCERIDE 349 H mg/dL 09/08/2023 13:42 CHOLESTEROL 189 mg/dL 09/08/2023 13:42 HDL(New) 40 mg/dL 09/08/2023 13:42 DIRECT LDL 94 L mg/dL 09/08/2023 13:42 CALCULATED LDL comment mg/dL 09/08/2023 13:42 TSH: TSH 1.176 uIU/mL 05/15/2023 15:37 Microalb/creat: CREATuF: 48.2 (09/12/23 21:20) M/CREAT: 10 (05/15/23 15:42) MICRAL: 6 (05/15/23 15:42) No MICRAL/CREAT RATIO (STL) data found Imaging results: ASSESSMENT/PLAN 1. T2DM Plan: - bren 3 reviewed: within range 49% with notable postprandial spikes after main meals of day (lunch and dinner), steady overnight readings - continue metformin ER 2g daily - continue jardiance 25mg daily - continue Ozempic 2mg weekly - start glipizide 5mg BID withmain meals of day Glucose results reviewed Foot Exam - with PCP Eye appointment up to date, due this year Labs to be done today Reviewed goal A1c - (<7%, FBS 80-130, 2 hr PP <180) Dx of DM2, role of insulin resistance & relative insulin deficiency reviewed. Medications & side effects reviewed. Reveiwed longterm complications of Diabetes- Including, but not limited to the ocula, renal, nervous, cardiovascular, and GI systems Stressed need for regular physical activity at least 30 minutes 4-5 days/week reviewed. Goal sugar, LDL, A1C, BP reviewed. 2. Rash - across trunk that ocurred after incxreasing dose of naltrexone - advised patient to stop until he is able to discuss with provider that prescribed it for fibromyalgia 3. HLD unable to toelrate statins ezetimibe 10mg daily 4. HTN stable on no medications at this time Reviewed goal of blood pressure to be below 130/80 Emphasized importance of adequate blood pressure control, particularly to prevent heart attack, stroke, heart failure, kidney failure, and eye complications Education about next steps reviewed with patient. All additional questions answered during visit today 5. vit D deficiency - check labs today Reviewed benefits of Vitamin D replacement including skeletal benefits, improvement in bone density, fracture prevention, increased immune and cardiovascular function, and improved musculoskeleal benefits. Preventive measure for hyperparathyroidism, low calcium uptake, deminieralization of bones (osteopenia/ osteoporosis), and increased risk of fracture Time spent with patient/caregiver: I personally spent 30 minutes today. This time includes preparing to see the patient (e.g. reviewing chart, lab results, medications, etc..), obtaining and/or reviewing history, performing medically necessary and appropriate examination/evaluation, counseling and educating the patient/caregiver, ordering medications, tests, or procedures, documenting in the patient record, and communicating results to the patient/caregiver. RTC: - Order placed, patient to schedule before departing from building today Pt verbalized understanding and had no further questions during today's meeting Patient case discussed with Endocrine staff /los/ ANGELA Johnston, MSN, RN Nurse Practitioner Signed: 12/14/2023 11:38 12/15/2023 ADDENDUM STATUS: COMPLETED talked with on the phone. Given A1C level of 6.8%, plan to take only half of glipizide tab twice daily /es/ ANGELA Johnston, MSN, RN Nurse Practitioner Signed: 12/15/2023 11:00 12/21/2023 ADDENDUM STATUS: COMPLETED called to clarify dose of diabetes medications. Gave [place]-specific number for bren sensor replacmenet. /los/ ANGELA Johnston, MSN, RN Nurse Practitioner Signed: 12/21/2023 12:58 [facility] T[facility]
--- OUTSIDE RECORDS SUMMARY | 2024-11-30 15:29 | XMS_ITS | Encounter Summary ---
Author Name [facility] Organization [facility] Address [address] [place] [address] Care Team Providers Care Process Development Associate Name Role Phone YONATHAN CORONEL Primary Care Provider OMEGA Bethea Unavailable Unavailable Selected Encounter This section includes the information on record at [place] for the Encounter. Date/Time Encounter Type Encounter Description Reason Pro vider Source Apr 02, 2024 11:53 AM Outpatient Encounter PRE-SURG EVAL IHE Encounter Template Text not used by [place] Plan of Treatment: Future Appointments (+ 6 [...] 03, 2024 11:00 AM AMBULATORY - MEDICINE [facility] Apr 08, 2024 02:00 PM AMBULATORY - SURGERY [facility] Apr 09, 2024 01:00 PM AMBULATORY - NONE [facility] Apr 19, 2024 10:00 AM AMBULATORY - NONE [facility] Apr 23, 2024 03:00 PM AMBULATORY - MEDICINE [facility] Apr 29, 2024 01:00 PM AMBULATORY - NONE [facility] Apr 30, 2024 03:00 PM AMBULATORY - PSYCHIATRY [facility] May 03, 2024 10:30 AM AMBULATORY - SURGERY [facility] May 21, 2024 01:00 PM AMBULATORY - PSYCHIATRY [facility] May 31, 2024 10:30 AM AMBULATORY - SURGERY . [facility] Jun 05, 2024 09:30 AM AMBULATORY - NONE . [facility] Jun 14, 2024 11:00 AM AMBULATORY - SURGERY [facility] Jun 17, 2024 03:00 PM AMBULATORY - MEDICINE [facility] Jun 25, 2024 03:00 PM AMBULATORY - PSYCHIATRY [facility] Jul 01, 2024 10:30 AM AMBULATORY - NONE [facility] [facility] Jul 08, 2024 10:30 AM AMBULATORY - REHAB MEDICIN E [facility] Jul 18, 2024 02:00 PM AMBULATORY - MEDICINE [facility] Jul 22, 2024 03:00 PM AMBULATORY - NONE [facility] [facility] Aug 02, 2024 01:30 PM AMBULATORY - SURGERY [facility] Aug 08, 2024 02:00 PM AMBULATORY - PSYCHIATRY [facility] Lab Results: +/- 30 days of [...] Type Comment Apr 20, 2024 11:39 AM [facility] GLUCOSE,BLOOD-poct (STL) BLOOD Specimen Type: BLOOD Comment: Test Performed by: [id number] Meter #: [id number] Ordering Provider: KIKI PINA Report Released Date/Time: Apr 20, 2024 12:07 PM Reporting Lab: [address] [address] Performing Lab: [place] [address] [facility] [address] GLUCOSE,BLOOD-poct (STL) 266 mg/dL H -Apr 20, 2024 05:26 AM [facility] GLUCOSE,BLOOD-poct (STL) BLOOD Specimen Type: BLOOD Comment: Test Performed by: [id number] Meter #: [id number] Ordering Provider: KIKI PINA Report Released Date/Time: Apr 20, 2024 05:38 AM Reporting Lab: [address] [address] Performing Lab: [address] [address] GLUCOSE,BLOOD-poct (STL) 157 mg/dL H Apr 19, 2024 08:45 PM [facility] GLUCOSE,BLOOD-poct (STL) BLOOD Specimen Type: BLOOD Comment: Test Performed by: [id number] Meter #: [id number] Ordering Provider: KIKI PINA Report Released Date/Time: Apr 19, 2024 10:10 PM Reporting Lab: [address] [address] Performing Lab: [address] [address] GLUCOSE,BLOOD-poct (STL) 232 mg/dL H Apr 19, 2024 05:13 PM [facility] GLUCOSE,BLOOD-poct (STL) BLOOD Specimen Type: BLOOD Comment: Test Performed by: [id number] Meter #: [id number] Ordering Provider: KIKI PINA Report Released Date/Time: Apr 19, 2024 05:24 PM Reporting Lab: [address] [address] Performing Lab: [address] [address] GLUCOSE,BLOOD-poct (STL) 176 mg/dL H -Apr 19, 2024 03:32 PM [facility] GLUCOSE,BLOOD-poct (STL) BLOOD Specimen Type: BLOOD Comment: Test Performed by: [id number] Meter #: [id number] Ordering Provider: LAUREN MOREL Report Released Date/Time: Apr 19, 2024 03:43 PM Reporting Lab: [address] [address] Performing Lab: [address] [address] GLUCOSE,BLOOD-poct (STL) 155 mg/dL H 72-99 Apr 19, 2024 02:56 PM [facility] MRSA SURVL NARES DNA NARES Specimen Type: [...] Apr 19, 2024 04:55 PM Reporting Lab: [place] [phone] Performing Lab: [address] [address] MRSA SURVL NARES DNA Negative Negative Apr 19, 2024 10:33 AM [facility] GLUCOSE,BLOOD-poct (STL) BLOOD Specimen Type: BLOOD Comment: Test Performed by: [id number] Meter #: [id number] Ordering Provider: YONATHAN CORONEL Report Released Date/Time: Apr 19, 2024 10:50 AM Reporting Lab: [address] [address] Performing Lab: [address] [address] GLUCOSE,BLOOD-poct (STL) 226 mg/dL H 72-99 Apr 08, 2024 03:28 PM [facility] PT/INR NEW (STL-MA) PLASMA Specimen Type: PLAS MA Comment: ~For Test: BASIC METABOLIC PANEL ~pre-op Ordering Provider: NOAH SANCHEZ Report Released Date/Time: Apr 02, 2024 12:39 PM Reporting Lab: [address] [address] Performing Lab: [address] [address] PROTIME 12.5 s 9.4-12.5 INR VALUE 1.1 {INR} Apr 08, 2024 03:28 PM [facility] BASIC METABOLIC PANEL PLASMA Specimen Type: PL ASMA Comment: ~For Test: BASIC METABOLIC PANEL ~pre-op Ordering Provider: NOAH SANCHEZ Report Released Date/Time: Apr 02, 2024 12:39 PM Reporting Lab: [address] [address] Performing Lab: [address] [address] CREATININE 1.59 mg/dL H 0.7-1.3 UREA NITROGEN 13.7 mg/dL 9.0-25.0 GLUCOSE 234 mg/dL H 72-99 SODIUM 139 meq/L 136-145 POTASSIUM 4.3 meq/L 3.5-5 CHLORIDE 104 meq/L 98-107 CARBON DIOXIDE 22 meq/L 22-31 CALCIUM 9.6 mg/dL 8.4-10.4 EGFR (CKD-EPI 2020) 50.6 >60 Apr 08, 2024 03:28 PM [facility] CBC BLOOD Specimen Type: BLOOD Comment: ~For Test: BASIC METABOLIC PANEL ~pre-op Ordering Provider: NOAH SANCHEZ Report Released Date/Time: Apr 02, 2024 12:39 PM Reporting Lab: [address] [address] Performing Lab: [address] [address] WBC 7.3 10*3/uL 3.6-11.2 RBC 5.23 10*6/uL [...] ago,started smoking at 14yrs,smoked 2packs a day [facility] Tobacco Use History This section includes a history of the smoking, or tobacco-related health factors, that were collected on or before the date of the Encounter. The data comes from the [place] facility where the Encounter took place. Date/Time Smoking Status/Tobacco Use Comment F acility Mar 07, 2000 12:35 PM CURRENT NON-TOBACC O USER-HX OF USE [facility] Advance Directives: All historical and current Section [...] Provider Source Oct 21, 2022 FRANKLIN KO [facility] Sep 23, 2004 ADVANCE DIRECTIVE CJ RUDOLPH [facility] May 24, 2004 ADVANCE DIRECTIVE MITCH ZEE IS [facility] May 24, 2000 ADVANCE DIRECTIVE MICHELE CENTENO IS [facility] Nov 11, 1996 ADVANCE DIRECTIVE MAGGIE DRAKE [facility] December 08, 1995 ADVANCE DIRECTIVE NATANAELKI JAUREGUI [facility] Radiology Reports: +/- 30 days of the [...] 03:15 PM CHEST X-RAY, 2 VIE WS: JC HAAS [id number] -1970 M Exm Date: APR 08, 2024@15:15 Req Phys: NOAH SANCHEZ Loc: -PRE-OP EVAL NURSING AM (Req Img Loc: -MAIN RADIOLOGY SUITE Service: [facility] [address] [place] [address] (Case [id number] COMPLETE) CHEST X-RAY, 2 VIEWS (RAD Detailed) CPT:49574 Reason for Study: pre-op Clinical History: Report Status: Verified Date Reported: APR 08, 2024 Date Verified: APR 08, 2024 Oil Derrick Operator E-Sig:/ES/Franklin Hartley MD. FACR. Report: History: pre-op. Comparison: Prior chest examination-03/24/2023. Technique: PA and lateral views. Findings: No pulmonary consolidation, pleural effusion, pneumothorax, cardiomegaly or pulmonary edema is seen. Impression: No acute cardiopulmonary disease is seen. Primary Interpreting Staff: Franklin Hartley MD. FACR, Neuroradiologist (Oil Derrick Operator) /FRANKLIN KENDALL [facility] Pathology Reports: +/- 30 days of [...] comes from all [place] treatment facilities. Date/Time Pathology Report Provider Source [...] Performing Laboratory: Surgical Pathology Report Performed By: [facility] CLIA# [id number] [facility] [facility] [address] [place] [address] $FTR - - - - - - - - - - - - - - - - - - - - - - - - - - - - - - - - - - - - - - - - (End of report) CHRISTY MALCOLM MD [facility] Date Apr 23, 2024 - - - - - - - - - - - - - - - - - - - - - - - - - - - - - - - - - - - - - - - - JC HAAS STANDARD FORM 515 ID:[id number] SEX:M :1970 AGE: 54 LOC:APFEE PCP: Yonathan Coronel NP /los/ CHRISTY MALCOLM Pathologist Signed: 04/23/2024 14:03 CHRISTY MALCOLM [facility] Apr 08, 2024 03:00 PM LR MICROBIOLOGY RE PORT: Accession [UID]: [id number] [[id number]] Received: Apr 08, 2024@15:27 Collection sample: URINE,CLEAN CATCH Collection date: Apr 08, 2024 15:00 Site/Specimen: URINE Provider: NOAH SANCHEZ Test(s) ordered: C&S URINE.................... . completed: Apr 09, 2024 22:40 * BACTERIOLOGY FINAL REPORT => Apr 09, 2024 22:47 TECH CODE: [id number] CULTURE RESULTS: STREP. AGALACTIAE, GRP. B - Quantity: >25,000 - <50,000 CFU/ML Comment: There will be no work up. Bacteriology Remark(s): -- RYAN 04/09/24 -- >25,000 - <50,000 CFU/ML S. AGAL - There will be no work up. <10,000 CFU/ML MIXED GRAM POSITIVE ORGANISM There will be no work up. =--=--=--=--=--=--=--=--= --=--=--=--=--=--=--=--=- -=--=--=--=--=--=--=--=-- =-- Performing Laboratory: Bacteriology Report Performed By: [facility] [place] [address] [facility] CLIA# [id number] [address] [place] [phone] LUANA CINTRON [facility] Encounter Notes: All associated encounter notes This section contains the clinical notes associated to the Encounter. Date/Time Encounter Note(s) Provider Source Apr 02, 2024 12:39 PM PHYSICIAN LETTERS: LOCAL TITLE: PHYSICIAN LETTERS STANDARD TITLE: PHYSICIAN LETTERS DATE OF NOTE: APR 02, 2024@12:39 ENTRY DATE: APR 02, 2024@12:39:36 AUTHOR: NOAH SANCHEZ COSIGNER: URGENCY: STATUS: COMPLETED [address] [address] J[address] [address] [place], [place] [address] Dear Jc Haas: UROLOGY SURGERY PRE-PROCEDURE/SURGERY INSTRUCTIONS Your surgery is scheduled on: Friday April 19, 2024 YOU NEED TO OBTAIN these labs 2-3 weeks before your surgery Blood (CBC, BMP, PT/INR) Urine culture Chest X-Ray COVID 19 testing is no longer required before surgery. If you develop symptoms of COVID 19 (fever, cough, tiredness, body aches, sore throat, headache, loss of taste or smell) prior to your surgery or currently have any of the following symptoms, please contact the urology department so testing can be performed for your safety. Phone number listed below You can obtain these at [facility] on the 2nd floor OR You can obtain these tests at your closest [place] or Primary Clinic Day of surgery you will report to: [address] ([facility]) at 10am, Take main elevator to 4th floor, turn left and check in at desk Please keep in mind the only case that predictably goes to the OR on time is the first case, so please be patient. It's impossible to guestimate exact surgery times for the cases that start after the first case. You will be admitted to the hospital after your surgery You cannot drive after surgery. Please have transportation arranged You can take your morning medications with a sip of water EXCEPT: metformin, glipizide (hold morning of surgery) HOLD THESE MEDICATIONS: empagliflozin - 3 days prior to surgery semaglutide - 7 days prior to surgery - DO NOT bring your medications with you. Any medications you need will be provided for you. Bring your inhalers and CPAP machine, if you use them. - DO NOT EAT or DRINK anything after midnight the night before surgery - Please shower with antibacterial soap if available, wash hair, clean finger nails and wear clean clothes prior to reporting the hospital for surgery to decrease risk for infection. Please call Urology if you have any questions or need to cancel or reschedule your surgery ext [phone] Sincerely, NOAH SANCHEZ, JENNIFER-DORI, MSN, RN Nurse Practitioner, Urology JC HAAS,NOAH Eason [facility]
--- OUTSIDE RECORDS SUMMARY | 2024-11-30 15:29 | XMS_ITS | Encounter Summary ---
Author Name [facility] [place] Address [address] [place] [address] Care Team Providers Care Engine Repairer Name Role Phone YONATHAN LINDSAY Primary Care Provider OMEGA Bethea Unavailable Unavailable Selected Encounter This section includes the information on record at [place] for the Encounter. Date/Time Encounter Type Encounter Description Reason Provider Source December 19, 2023 03:00 PM PSYTX W PT 60 MINUTES PTSD OUTPT RES SPEC PROG INDIV ICD-10-CM F43.12 Post-traumatic stress disorder, chronic FRANKLIN HASSAN IHYumi Encounter Template Text not used by [place] Assessments - Encounter Diagnoses This section includes the primary and secondary diagnoses documented for the Encounter. Date/Time Primary/Secondary Diagnosis Diagnosis Name Provider Source December 19, 2023 03:55 PM PRIMARY Post-traumatic stress disorder, chronic FRANKLIN HASSAN [facility] Plan of Treatment: Future Appointments (+ [...] 21, 2023 04:00 PM AMBULATORY - PSYCHIATRY [facility] Jan 01, 2024 07:02 PM AMBULATORY - MEDICINE [facility] Jan 11, 2024 10:15 AM AMBULATORY - MEDICINE [facility] Jan 15, 2024 11:15 AM AMBULATORY - MEDICINE [facility] Jan 15, 2024 01:00 PM AMBULATORY - NONE [facility] Jan 30, 2024 10:00 AM AMBULATORY - SURGERY [facility] Jan 30, 2024 03:00 PM AMBULATORY - PSYCHIATRY [facility] Feb 02, 2024 02:30 PM AMBULATORY - PSYCHIATRY [facility] Feb 08, 2024 01:30 PM AMBULATORY - NONE [facility] Feb 13, 2024 10:00 AM AMBULATORY - NONE [facility] Feb 15, 2024 10:00 AM AMBULATORY - MEDICINE [facility] Feb 19, 2024 11:00 AM AMBULATORY - NONE [facility] Feb 23, 2024 10:30 AM AMBULATORY - MEDICINE [facility] Feb 26, 2024 03:00 PM AMBULATORY - MEDICINE [facility] Mar 05, 2024 03:00 PM AMBULATORY - PSYCHIATRY [facility] Mar 08, 2024 01:00 PM AMBULATORY - PSYCHIATRY [facility] Mar 26, 2024 03:00 PM AMBULATORY - PSYCHIATRY [facility] Apr 03, 2024 11:00 AM AMBULATORY - MEDICINE [facility] Apr 08, 2024 02:00 PM AMBULATORY - SUR[facility]ERY [facility] Apr 09, 2024 01:00 PM AMBULATORY - NONE [facility] Active, Pending, and Scheduled Orders This section includes a listing of several types of active, pending, and scheduled orders, including clinic medications orders, diagnostic test orders, procedure orders and consult orders; where the start date of the order is 45 days before the date of the Encounter or 45 days after the date of theEncounter. The data comes from all [place] treatment facilities. Test Date/Time Test Type Test Details Facility Name Nov 28, 2023 12:00 AM Laboratory - Chemistry Order AMMONIA (STL-MA) WHITE CAP EDTA PLASMA SP [facility] December 19, 2023 12:00 AM Laboratory - Chemistry Order ALPHA-1 ANTITRYPSIN (STL) GREEN LI/HEP BLD/PLAS PLASMA SP [facility] December 19, 2023 12:00 AM Laboratory - Chemistry Order ANTI-MITOCHONDRIAL AB (STL) GOLD/RED SST SERUM SP [facility] December 19, 2023 12:00 AM Laboratory - Chemistry Order ACTIN (SMOOTHMUSCLE) ANTIBODY IGG GOLD/RED SST SERUM SP [facility] December 19, 2023 12:00 AM Laboratory - Chemistry Order CERULOPLASMIN (STL-PB) GOLD/RED SST SERUM [facility] Lab Results: +/- 30 days of [...] Type Comment December 14, 2023 11:58 AM [facility] B12 SERUM Specimen Type: SERUM No comment entered. Ordering Provider: SHELIA MOERIRA Report Released Date/Time: Nov 28, 2023 11:26 AM Reporting Lab: [facility] [address] [facility] [address] Performing Lab: [facility] [address] [place] [phone] B12 423 pg/mL 213-816 December 14, 2023 11:58 AM [facility] COMPREHENSIVE METABOLIC PANEL PLASMA Specimen Type: PLASMA Comment: No hemolysis noted. Ordering Provider: SHELIA MOREIRA Report Released Date/Time: Nov 28, 2023 11:26 AM Reporting Lab: [facility] [address] [facility] [address] Performing Lab: [facility] [address] [facility] [address] CREATININE 0.90 mg/dL 0.7-1.3 UREA NITROGEN 12.9 [...] 100.9 >60 December 14, 2023 11:58 AM [facility] CBC BLOOD Specimen Type: BLOOD No comment entered. Ordering Provider: SHELIA MOREIRA Report Released Date/Time: Nov 28, 2023 11:26 AM Reporting Lab: [facility] [address] [facility] [address] Performing Lab: [facility] [address] [facility] [phone] WBC 5.9 10*3/uL 3.6-11.2 RBC 5.18 10*6/uL [...] 0.00-0. 20 December 14, 2023 11:[address] [facility] HGA1C BLOOD Specimen Type: BLOOD No comment entered. Ordering Provider: RAKEL TORRES Report Released Date/Time: December 14, 2023 11:26 AM Reporting Lab: [facility] [address] [facility] [address] Performing Lab: [facility] [address] [place] [phone] HGA1C 6.8 H 4.0-6.0 December 14, 2023 11:[address] [facility] VITAMIN D, 25-HYDROXY SERUM Specimen Type: SE RUM No comment entered. Ordering Provider: RAKEL TORRES Report Released Date/Time: December 14, 2023 11:35 AM Reporting Lab: [address] [address] Performing Lab: [facility] [address] [facility] [address] VITAMIN D, 25-HYDROXY 44.3 ng/mL 30-96 Social [...] 2023 01:09 PM VA-TOBACCO USER EVERY DAY [facility] Tobacco Use History This section includes a history of the smoking, or tobacco-related health factors, that were collected on or before the date of the Encounter. The data comes from the [place] facility where the Encounter took place. Date/Time Smoking Status/Tobacco Use Comment F acility Jul 04, 2023 01:09 PM VA-TOBACCO USE ADVICE [facility] Jul 04, 2023 01:09 PM VA-TOBACCO USE PICK UP ATTENDANT NO [facility] Jul 04, 2023 01:09 PM VA-TOBACCO USE MED NO [facility] Jul 04, 2023 01:09 PM VA-TOBACCO USE WI 30 MIN OF WAKEUP [facility] Jul 04, 2023 01:09 PM VA-TOBACCO USER EVERY DAY [facility] Jul 28, 2022 01:00 PM VA-TOBACCO FORMER USER [facility] Jul 28, 2022 01:00 PM VA-TOBACCO QUIT 15 YRS OR MORE [facility] Jul 13, 2021 01:00 PM VA-TOBACCO DOESNT USE WI 30 MIN WAKEUP [facility] Jul 13, 2021 01:00 PM VA-TOBACCO USE 30 YEARS OR MORE [facility] Jul 13, 2021 01:00 PM VA-TOBACCO USE ADVICE [facility] Jul 13, 2021 01:00 PM VA-TOBACCO USE PICK UP ATTENDANT NO [facility] Jul 13, 2021 01:00 PM VA-TOBACCO USE MED NO [facility] Jul 13, 2021 01:00 PM VA-TOBACCO USER SOME DAYS [facility] May 20, 2020 03:30 PM VA-TOBACCO DOESNT USE WI 30 MIN WAKEUP [facility] May 20, 2020 03:30 PM VA-TOBACCO USE > 1 5 LESS THAN 30 YEARS [facility] May 20, 2020 03:30 PM VA-TOBACCO USE ADVICE [facility] May 20, 2020 03:30 PM VA-TOBACCO USE PICK UP ATTENDANT NO [facility] May 20, 2020 03:30 PM VA-TOBACCO USE MED NO [facility] May 20, 2020 03:30 PM VA-TOBACCO USER SOME DAYS [facility] Jun 26, 2018 11:30 AM VA-TOBACCO FORMER USER [facility] Jun 26, 2018 11:30 AM VA-TOBACCO QUIT 15 YRS OR MORE [facility] Mar 02, 2017 07:35 AM QUIT TOBACCO >7 YEARS AGO [facility] May 25, 2016 05:48 AM CURRENT TOBACCO USER [facility] May 25, 2016 05:48 AM TOBACCO MEDS OFFER ED BUT DECLINED [facility] Jun 23, 2015 02:29 PM QUIT TOBACCO >7 YEARS AGO [facility] Sep 12, 2014 06:15 AM CURRENT TOBACCO USER [facility] Sep 12, 2014 06:15 AM QUIT TOBACCO >7 YEARS AGO [facility] Sep 12, 2014 06:15 AM TOBACCO MEDS OFFER ED BUT DECLINED [facility] Jun 25, 2013 02:47 PM QUIT TOBACCO >7 YEARS AGO [facility] May 04, 2010 12:36 PM LIFETIME NON-USER OF TOBACCO [facility] Jul 30, 2009 11:12 AM CURRENT TOBACCO USER [facility] Mar 20, 2008 01:00 PM CURRENT TOBACCO USER [facility] Mar 20, 2008 01:[address] [facility] Mar 20, 2008 01:00 PM TOBACCO OFFERRED P T MEDS (PROVIDER) [facility] Mar 06, 2007 10:38 AM QUIT TOBACCO >7 YEARS AGO [facility] May 09, 2006 09:29 AM CURRENT TOBACCO USER [facility] Aug 27, 2004 10:41 AM CURRENT TOBACCO USER [facility] Aug 27, 2004 10:41 AM SMOKER <10 [facility] Advance Directives: All historical and current [...] Source Oct 21, 2022 FRANKLIN KO [facility] Sep 23, 2004 ADVANCE DIRECTIVE CJ RUDOLPH [facility] May 24, 2004 ADVANCE DIRECTIVE MITCH ZEE [facility] May 24, 2000 ADVANCE DIRECTIVE MICHELE CENTENO [facility] IS [facility] Nov 11, 1996 ADVANCE DIRECTIVE VIDALMAGGIE Yon [facility] December 08, 1995 ADVANCE DIRECTIVE KI [...] ABDOMEN LIMITED W/BLOOD FLOW DOPPLER: BETTY HAAS [id number] -1970 M Exm Date: JAN 15, 2024@12:42 Req Phys: KOSTA SOTO Pat Loc: [place]-GI CONSULT (Req'g Loc) Img Loc: [facility]-ULTRASOUND Service: [address] [address] (Case [id number] COMPLETE) US ABDOMEN LTD, SINGLE ORG OR CHRISTIN(US Detailed) CPT:08693 Reason for Study: elevated LFTs (Case [id number] COMPLETE) US BLOOD FLOW ABD/RENAL (LTD) (US Detailed) CPT:06945 Clinical History: Organ to Image: Liver Reason for exam: elevated LFTs Report Status: Verified Date Reported: JAN 15, 2024 Date Verified: JAN 15, 2024 Senior Analysis Specialist E-Sig:/ES/DUNIA LUNA Report: CASE #: [id number], [id number] EXAMINATION: Limited sonogram of the right upper [...] cholecystitis. Report dictated by Lucien Ruiz (radiology services manager) I, Dunia Luna, have reviewed the images and report and concur with these findings. Primary Interpreting Staff: DUNIA LUNA MD (Senior Analysis Specialist) Primary Interpreting Resident: LUCIEN RUIZ MD /DUNIA MARTINES [facility] Jan 01, 2024 07:18 PM ANKLE,RIGHT, 3 VIEWS: BETTY HAAS [id number] -1970 M Exm Date: JAN 01, 2024@19:18 Req Phys: MONICA JULES Loc: [facility]-EMERGENCY SODA DISPENSER (Req'g Img Loc: [facility]-MAIN RADIOLOGY SUITE Service: [facility], [place], [facility], [facility] [address] [place] [address] (Case [id number] COMPLETE) ANKLE,RIGHT, 3 VIEWS (RAD Detailed) CPT:20227 Proc Modifiers : RIGHT Reason for Study: Fell Clinical History: Right anterior aspect just proximal of mid-point Report Status: Verified Date Reported: JAN 01, 2024 Date Verified: JAN 01, 2024 Senior Analysis Specialist E-Sig: Report: KNEE,RIGHT,1 OR 2 VIEWS, TIBIA & FIBULA,RIGHT, 2 VIEWS, ANKLE,RIGHT, 3 VIEWS HISTORY: Right lower leg. Right anterior aspect just proximal of mid-point COMPARISON: Right knee radiograph 06/04/2018 TECHNIQUE: 2 views of the right knee, 4 views of the right tibia/fibula, and 3 views of the right ankle, submitted to the [place] National Teleradiology Program (NTP) for interpretation. FINDINGS: [...] and ankle. READING PHYSICIAN: Rogelio Alford MD -[id number] 01/01/2024 18:34 PDT [facility] National Teleradiology Program [phone] (For Medical Practitioner Use Only) Attention Patients / Veterans: If you have questions or concerns about these test results, please contact your ordering provider or primary care team. Primary Interpreting Staff: RADIOLOGY,OUTSIDE SERVICE, Staff Physician / RADIOLOGY,OUTSIDE SERVICE [facility] Jan 01, 2024 07:18 PM TIBIA & FIBULA,RIGHT, 2 VIEWS: BETTY HAAS [id number] -1970 M Exm Date: JAN 01, 2024@19:18 Req Phys: MONICA JULES Loc: [place]-EMERGENCY SODA DISPENSER (Req'g Img Loc: -MAIN RADIOLOGY SUITE Service: Unknown [facility], [address] [place] [address] (Case [id number] COMPLETE) TIBIA & FIBULA,RIGHT, 2 VIEWS (RAD Detailed) CPT:88871 Proc Modifiers : RIGHT Reason for Study: Right lower leg Clinical History: Right anterior aspect just proximal of mid-point Report Status: Verified Date Reported: JAN 01, 2024 Date Verified: JAN 01, 2024 Senior Analysis Specialist E-Sig: Report: KNEE,RIGHT,1 OR 2 VIEWS, TIBIA & FIBULA,RIGHT, 2 VIEWS, ANKLE,RIGHT, 3 VIEWS HISTORY: Right lower leg. Right anterior aspect just proximal of mid-point COMPARISON: Right knee radiograph 06/04/2018 TECHNIQUE: 2 views of the right knee, 4 views of the right tibia/fibula, and 3 views of the right ankle, submitted to the [place] National Teleradiology Program (NTP) for interpretation. FINDINGS: [...] and ankle. READING PHYSICIAN: Rogelio Alford MD -[id number] 01/01/2024 18:34 PDT [facility] National Teleradiology Program [phone] (For Medical Practitioner Use Only) Attention Patients / Veterans: If you have questions or concerns about these test results, please contact your ordering provider or primary care team. Primary Interpreting Staff: RADIOLOGY,OUTSIDE SERVICE, Staff Physician / RADIOLOGY,OUTSIDE SERVICE [facility] Jan 01, 2024 07:18 PM KNEE,RIGHT,1 OR 2 VIEWS: BETTY HAAS [id number] -1970 M Exm Date: JAN 01, 2024@19:18 Req Phys: MONICA JULES Loc: [place]-EMERGENCY SODA DISPENSER (Req'g Img Loc: -MAIN RADIOLOGY SUITE Service: [facility] [place], [facility], [address] [place] [address] (Case [id number] COMPLETE) KNEE,RIGHT,1 OR 2 VIEWS (RAD Detailed) CPT:88124 Proc Modifiers : RIGHT, LATERAL Reason for Study: right lower leg Clinical History: Right anterior aspect just proximal of mid-point Report Status: Verified Date Reported: JAN 01, 2024 Date Verified: JAN 01, 2024 Senior Analysis Specialist E-Sig: Report: KNEE,RIGHT,1 OR 2 VIEWS, TIBIA & FIBULA,RIGHT, 2 VIEWS, ANKLE,RIGHT, 3 VIEWS HISTORY: Right lower leg. Right anterior aspect just proximal of mid-point COMPARISON: Right knee radiograph 06/04/2018 TECHNIQUE: 2 views of the right knee, 4 views of the right tibia/fibula, and 3 views of the right ankle, submitted to the [place] National Teleradiology Program (NTP) for interpretation. FINDINGS: [...] and ankle. READING PHYSICIAN: Rogelio Alford MD -[id number] 01/01/2024 18:34 PDT [facility] National Teleradiology Program [phone] (For Medical Practitioner Use Only) Attention Patients / Veterans: If you have questions or concerns about these test results, please contact your ordering provider or primary care team. Primary Interpreting Staff: RADIOLOGY,OUTSIDE SERVICE, Staff Physician / RADIOLOGY,OUTSIDE SERVICE [facility] Encounter Notes: All associated encounter notes This section contains the clinical notes associated to the Encounter. Date/Time Encounter Note(s) Provider Source December 19, 2023 03:43 PM PSYCHOLOGY NOTE: LOCAL TITLE: TRP PSYCHOTHERAPY STL STANDARD TITLE: PSYCHOLOGY NOTE DATE OF NOTE: DECEMBER 19, 2023@15:43 ENTRY DATE: DECEMBER 19, 2023@15:43:55 AUTHOR: FRANKLIN HASSAN COSIGNER: URGENCY: STATUS: COMPLETED PCT Psychotherapy Tracking Today's psychotherapy session was part of a standardized episode of Other PTSD Psychotherapy (e.g. supportive therapy): Other: Present Centered/trauma narrative/emotional processing Measurement Based Care (MBC): MBC Act Following discussion of [place]'s reported outcomes, we discussed the impact on treatment goals. As a result the treatment plan will remain the same. PCT Psychotherapy Tracking Today's psychotherapy session was part of a standardized episode of Other PTSD Psychotherapy (e.g. supportive therapy): Other: Present Centered/CBT Measurement Based Care (MBC): MBC Act Following discussion of [place]'s reported outcomes, we discussed the impact on treatment goals. As a result the treatment plan will remain the same. PSYCHOTHERAPY PROGRESS NOTE NATURE OF ENCOUNTER: fam psychotherapy TIME SPENT WITH PATIENT (Minutes): 55 SESSION NUMBER: SESSION FORMAT: [ ] Tboy-jh-Vhyr [ X] Video Telehealth [ ] Phone GOALS: The following goals were developed using shared decision-making with input by the - More recently come in for another episode of care due to a complicated mix of medical, trauma-based/psychiatric issues. The [...] developments since last contact [X ] Specify: Looks and sounds about the best he's been in recent memory. Still having all of the troubling medical issues and states he passed out x2 yesterday and fell, but today is feeling good emotionally and shows in his mood. Though he cont. 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 Continues to be followed by suicide risk management and continues to deny safety issues. TYPE OF INTERVENTIONS PROVIDED BY THERAPIST: [ ]Rapport Building [ ] Shared decision-making regarding goals of care [X ] Psychotherapy (Specify modality): Present centered therapy/solution psychotherapy [ ] Health Psychology Interventions [ ] Graduation Planning [ ] Other: DESCRIPTION OF INTERVENTIONS PROVIDED BY THERAPIST: He was more acutely upset about his day-to-day function and loss of independence last session and though his medical health remains touch and go, mentally he sounds far better today and we look at the ways that in spite of his limitations, he remains very highly active/engaged in meaningful activities. Cont. to reinforced the 's proactive steps towards constructive coping and problem-solving. ASSESSMENT MEASURES USED THIS SESSION: Measures/Scores: [ ] Results are located in Mental Health Diagnostic Study Note Measures not collected/administered this session: Rationale and plan for next administration: X future session OR, Efforts made to increase measurement: ___ Symptom review completed in Progress Towards Goals MENTAL STATUS/PRESENTATION: w/ euthymic, even bright mood, approp. affect today. Cont. to flatly deny active SI/HI, plans or intentions and is practicing active gun safety/safe storage. In aggregate, and spite of very recent suicidal ideation with plan, the did not appear to be at imminent risk for suicide or homicide at this time and is considered sustainable at the current level of care. Will continue to monitor any factors that may increase risk over time and these are all part of the calculus of treatment planning moving forward so as to prevent the precipitating factors that cause this crisis. His PCP apparently thought a cognitive assessment was warranted based on some comments he made while giving narrative to new PCP. He does not report his memory is worsening and I do not see this as a primary concern or clinical issue at this time. Discussed this with and he did not wish to undergo additional cog. assessment as he went through a full neuropsych battery last year. Though he is currently reporting some strange disorientation/mental status alterations, we are going to see if his resuming his medications and getting some rest restores equilibrium. RISK ASSESSMENT: [ ] NO CHANGE IN RISK FACTORS Related to Suicide or Homicide. [ X] NEW/UPDATED RISK ASSESSMENT: -RELEVANT RISK AND PROTECTIVE FACTORS: As noted, lethal means counseling initiated and confirmed increased steps to maintain firearm and inaccessibility and safety for himself. Other risk factors include chronic pain issues which he has an appointment for in the near future. Plans to discuss possible interventions to head off need for emergency medical care when his pain spikes. Working on suicide safety plan and active monitoring with [facility]. IDEATION: [X ] [place] denied current suicidal or homicidal ideation, plan, or intent. (Based on available information) [ ] Suicidal or homicidal ideation/behavior WAS identified: CLINICAL JUDGMENT AND DISPOSITION: [X ] In consideration of relevant risk and protective factors, the did NOT appear to be at imminent risk for suicide or homicide at this time and IS sustainable at the current level of care. -Comments: [ ] [place] IS considered to be at INCREASED RISK for suicide or homicide based upon: -Actions/interventions taken to address risk and prevent harm include: -Emergency protocols initiated were: -Comments: Emergency Services: [place] voiced understanding and willingness to go to the [place] emergency room during crisis or to utilize [...] care. expressed agreement with therapy tasks and yhmumq-ty-ccuuod plan. [X ] Recommend changes to plan of care: Reviewed proposed changes. Discussed potential benefits, risks, and complications. We will be tightening the session interval temporarily until such time as we collaboratively feel he can go back to normal interval. agreed to proceed with changes. [ X] YES [ ] NO Comments: RTC on 01/30/24@1500 via C /los/ FRANKLIN HASSAN PSY.D. Psychologist, [facility] Signed: 12/19/2023 15:55 FRANKLIN HASSAN [facility]
--- OUTSIDE RECORDS SUMMARY | 2024-11-30 15:29 | XMS_ITS | Encounter Summary ---
Author Name [facility] [place] [facility] [place] [facility] [place] Address [address] [place] [address] Care Team Providers Care Director Education Name Role Phone YONATHAN LINDSAY Primary Care Provider OMEGA Bethea Unavailable Unavailable Selected Encounter This section includes the information on record at [place] for the Encounter. Date/Time Encounter Type Encounter Description Reason Pro vider Source Oct 07, 2024 08:16 AM Outpatient Encounter COMMUNITY CARE CONSULT IHE Encounter Template Text not used by [place] Plan of Treatment: Future Appointments (+ 6 months) and Future Tests (+/- 45 days) The Plan of Treatment section includes future care activities for the patient from all [place] treatmentfacilities. This section includes future appointments and future orders which are active, pending or scheduled. Future Appointments This section includes appointments that were scheduled to occur 6 months from the date of the Encounter, up to a maximum of 20 appointments. The data comes from all [place] treatment facilities. Appointment Date/Time Appointment Type Appointme nt Facility Name Oct 10, 2024 02:00 PM AMBULATORY - PSYCHIATRY [facility] Oct 24, 2024 11:00 AM AMBULATORY - REHAB MEDICIN E [facility] Oct 25, 2024 10:30 AM AMBULATORY - MEDICINE [facility] Nov 01, 2024 01:00 PM AMBULATORY - SURGERY [facility] Nov 13, 2024 12:00 PM AMBULATORY - NONE [facility] Nov 13, 2024 02:00 PM AMBULATORY - MEDICINE [facility] November 29, 2024 11:15 AM AMBULATORY - REHAB MEDICIN E [facility] December 16, 2024 02:30 PM AMBULATORY - MEDICINE [facility] December 17, 2024 02:00 PM AMBULATORY - PSYCHIATRY [facility] Jan 13, 2025 11:15 AM AMBULATORY - MEDICINE [facility] Feb 13, 2025 02:00 PM AMBULATORY - MEDICINE [facility] Mar 24, 2025 10:30 AM [facility] Active, Pending, and Scheduled Orders This section includes a listing of several types of active, pending, and scheduled orders, including clinic medications orders, diagnostic test orders, procedure orders and consult orders; where the start date of the order is 45 days before the date of the Encounter or 45 days after the date of theEncounter. The data comes from all [place] treatment facilities. Test Date/Time Test Type Test Details Facility Name Oct 07, 2024 11:59 AM Consult Order COMMUNITY CARE-STL DENTAL SPEC Cons [employer] Manager[facility] Choice [facility] Oct 07, 2024 11:59 AM Consult Order [facility]ITY CARE-[facility] DENTAL SPEC [facility] [employer] [facility] Lab Results: +/- 30 days of [...] Unit Interpretation Reference Range Specimen Type Comment Oct 25, 2024 11:20 AM [facility] CONJ. BILIRUBIN PLASMA Specimen Type: PLASMA Comment: LDL calculation invalid when Triglyceride exceeds 250 mg/dl Ordering Provider: NIKA SANCHEZ Report Released Date/Time: Oct 25, 2024 10:53 AM Reporting Lab: [place] [id number] [facility] [address] Performing Lab: [facility] [address] [facility] [address] CONJ. BILIRUBIN 0.2 mg/dL 0-0.5 Oct 25, 2024 11:20 AM [facility] PT/INR NEW (STL-MA) PLASMA Specimen Type: PLAS MA No comment entered. Ordering Provider: NIKA SANCHEZ Report Released Date/Time: Oct 25, 2024 10:53 AM Reporting Lab: [address] [address] Performing Lab: [address] [address] PROTIME 12.5 s 9.4-12.5 INR VALUE 1.1 {INR} Oct 25, 2024 11:20 AM [facility] ALPHA-FETOPROTEIN(L-PB) PLASMA Specimen Type : PLASMA No comment entered. Ordering Provider: NIKA SANCHEZ Report Released Date/Time: Oct 25, 2024 10:53 AM Reporting Lab: [address] [address] Performing Lab: [address] [address] ALPHA-FETOPROTEIN(L-PB) <2.00 ng/mL L 1- 8.78 Oct 25, 2024 11:20 AM [facility] LIPID PANEL (STL) PLASMA Specimen Type: PLASM A Comment: LDL calculation invalid when Triglyceride exceeds 250 mg/dl Ordering Provider: NIKA SANCHEZ Report Released Date/Time: Oct 25, 2024 10:53 AM Reporting Lab: [address] [address] Performing Lab: [address] [address] CHOLESTEROL 158 mg/dL 0-200 TRIGLYCERIDE 401 mg/dL H 0-150 DIRECT LDL 73 mg/dL L >100 CALCULATED LDL comment mg/dL HDL(New) 38 mg/dL L >40 Oct 25, 2024 11:20 AM [facility] COMPREHENSIVE METABOLIC PANEL PLASMA Specimen Type: PLASMA Comment: LDL calculation invalid when Triglyceride exceeds 250 mg/dl Ordering Provider: NIKA SANCHEZ Report Released Date/Time: Oct 25, 2024 10:53 AM Reporting Lab: [address] [address] Performing Lab: [address] [address] CREATININE 0.70 mg/dL 0.7-1.3 UREA NITROGEN 13.9 [...] 108.1 >60 Oct 25, 2024 11:20 AM [facility] CBC BLOOD Specimen Type: BLOOD No comment entered. Ordering Provider: NIKA SANCHEZ Report Released Date/Time: Oct 25, 2024 10:53 AM Reporting Lab: [address] [address] Performing Lab: [address] [address] WBC 5.4 10*3/uL 3.6-11.2 RBC 5.06 10*6/uL [...] and tobacco- related health factors from the [place] facility where the Encounter took place. Current Smoking Status This section includes the most current smoking, or tobacco-related health factor, from the [place] facility where the Encounter took place. Date/Time Current Smoking Status Comment Facility May 26, 2000 01:36 PM CURRENT NON-TOBACC O USER-HX OF USE stop smoking 10yrs ago,started smoking at 14yrs,smoked 2packs a day [facility] Tobacco Use History This section includes a history of the smoking, or tobacco-related health factors, that were collected on or before the date of the Encounter. The data comes from the [place] facility where the Encounter took place. Date/Time Smoking Status/Tobacco Use Comment F acility Mar 07, 2000 12:35 PM CURRENT NON-TOBACC O USER-HX OF USE [facility] Advance Directives: All historical and current Section Date Range: From patient's date of to the date document was created. This section includes ALL of a patient's completed or amended [place] Advance and Rescinded Directives. The entries below indicate that a directive exists for the patient, but an actual copy is not included with this document. The data comes from all [facility]. Date Advance Directives Provider Source Oct 21, 2022 FRANKLIN KO [facility] Sep 23, 2004 ADVANCE DIRECTIVE CJ RUDOLPH [facility] May 24, 2004 ADVANCE DIRECTIVE MITCH ZEE [facility] May 24, 2000 ADVANCE DIRECTIVE MICHELE CENTENO [facility] Nov 11, 1996 ADVANCE DIRECTIVE KARMAGGIE RAMOS [facility] December 08, 1995 ADVANCE DIRECTIVE NATANAELKI [facility] Encounter Notes: All associated encounter notes This section contains the clinical notes associated to the Encounter. Date/Time Encounter Note(s) Provider Source Oct 07, 2024 12:00 PM ADDENDUM: LOCAL TITLE: Addendum STANDARD TITLE: ADDENDUM DATE OF NOTE: OCT 07, 2024@12:00:04 ENTRY DATE: OCT 07, 2024@12:00:04 AUTHOR: SHARITA MORGAN COSIGNER: URGENCY: STATUS: COMPLETED STL DENTAL SERVICE/COMMUNITY CARE RFS DETERMINATION The requested treatment: AUTHORIZED SUBMITTED. AUTHORIZED TREATMENT: D4341 Periodontal Scaling/Root Planting-4+/Quad UL D4341 Periodontal Scaling/Root Planting-4+/Quad LL D4341 Periodontal Scaling/Root Planting-4+/Quad UR D4341 Periodontal Scaling/Root Planting-4+/Quad LR D4910 Periodontal maintenance D7210 Surgical Ext (Flap+Sectioning &/or Bone #32 D9610 DEXAMETHASONE 4MG IV D9239 IV Sed/Anal-First 15 Min D9243 IV Sed/Anal- Ea Add'l 15 MIN Iner D9243 IV Sed/Anal- Ea Add'l 15 MIN Iner D9243 IV Sed/Anal- Ea Add 'l 15 MIN Iner D9243 IV Sed/Anal- Ea Add'l 15 MIN Iner D9243 IV Sed/Anal- Ea Add'l 15 MIN Iner D9243 IV Sed/Anal- Ea Add'l 15 MIN Iner D9243 IV Sed/Anal- Ea Add'l 15 MIN Iner D9613 (EXPAREL) LONG ACTION ANES EACH S #32 D9219 Evaluation for Mod/Deep Sedation ACTION STEPS (select all that apply) * RFS/ADA Dental Claim Form external records reviewed. * New consult(s) placed with corresponding SEOC(s). * [place] to continue dental treatment with community provider. REQUESTING PROVIDER: Franklin Mario NPI: [id number] Office:Franklin Mario [address] [place] [address] Email: [email or web address] COMMUNITY CARE COORDINATION NOTES Please continue [place]'s care for authorized treatment. /los/ SHARITA MORGAN DMD STAFF DENTIST, GENERAL DENTIST Signed: 10/07/2024 12:00 Receipt Acknowledged By: 10/08/2024 11:51 /pamela [facility] RN --- Original Document --- 10/07/24 COMMUNITY CARE-REQUEST FOR SERVICE NOTE STL: Request for Services (RFS) documentation has been sent for scanning to [email or web address] [facility] Community Care Consult: COMMUNITY CARE-Spec Consult No: [id number] Date sent to scanning: Sep A Request for Service (RFS) form [id number] has been received which includes the following: Care Requested: D4341 Periodontal Scaling/Root Planting-4+/Quad UL D4341 Periodontal Scaling/Root Planting-4+/Quad LL D4341 Periodontal Scaling/Root Planting-4+/Quad UR D4341 Periodontal Scaling/Root Planting-4+/Quad LR D4910 Periodontal maintenance D7210 Surgical Ext (Flap+Sectioning &/or Bone #32 D9610 DEXAMETHASONE 4MG IV D9613 (EXPAREL) LONG ACTION ANES EACH S #32 D9219 Evaluation for Mod/Deep Sedation D9239 IV Sed/Anal-First 15 Min D9243 IV Sed/Anal- Ea Add'l 15 MIN Iner D9243 IV Sed/Anal- Ea Add'l 15 MIN Iner D9243 IV Sed/Anal- Ea Add'l 15 MIN Iner D9243 IV Sed/Anal- Ea Add'l 15 MIN Iner D9243 IV Sed/Anal- Ea Add'l 15 MIN Iner D9243 IV Sed/Anal- Ea Add'l 15 MIN Iner D9243 IV Sed/Anal- Ea Add'l 15 MIN Iner ICD-10 Dx code: k03.6 Date [place] received request: Sep Date service required: Sep Requesting Community Provider Information: Name of Ordering Provider: Franklin Mario NPI: [id number] Office:Franklin Mario [address] [place] [address] Email: [email or web address] /los/ GEORGE LARSEN ADVANCED MEDICAIL COOK MANAGER Signed: 10/07/2024 08:22 Receipt Acknowledged By: 10/07/2024 11:59 /es/ SHARITA MORGAN DMD STAFF DENTIST, GENERAL DENTIST 10/08/2024 11:48 /es/ LOAN [facility]AGE [facility] RN [facility] Oct 07, 2024 08:16 AM NONVA NOTE: LOCAL TITLE: COMMUNITY CARE-REQUEST FOR SERVICE NOTE STL STANDARD TITLE: NONVA NOTE DATE OF NOTE: OCT 07, 2024@08:16 ENTRY DATE: OCT 07, 2024@08:16:50 AUTHOR: GEORGE LARSEN EXP COSIGNER: URGENCY: STATUS: COMPLETED COMMUNITY CARE-REQUEST FOR SERVICE NOTE STL Has ADDENDA Request for Services (RFS) documentation has been sent for scanning to [email or web address] [facility] Community Care Consult: COMMUNITY CARE-Spec Consult No: [id number] Date sent to scanning: Sep A Request for Service (RFS) form [id number] has been received which includes the following: Care Requested: D4341 Periodontal Scaling/Root Planting-4+/Quad UL D4341 Periodontal Scaling/Root Planting-4+/Quad LL D4341 Periodontal Scaling/Root Planting-4+/Quad UR D4341 Periodontal Scaling/Root Planting-4+/Quad LR D4910 Periodontal maintenance D7210 Surgical Ext (Flap+Sectioning &/or Bone #32 D9610 DEXAMETHASONE 4MG IV D9613 (EXPAREL) LONG ACTION ANES EACH S #32 D9219 Evaluation for Mod/Deep Sedation D9239 IV Sed/Anal-First 15 Min D9243 IV Sed/Anal- Ea Add'l 15 MIN Iner D9243 IV Sed/Anal- Ea Add'l 15 MIN Iner D9243 IV Sed/Anal- Ea Add'l 15 MIN Iner D9243 IV Sed/Anal- Ea Add'l 15 MIN Iner D9243 IV Sed/Anal- Ea Add'l 15 MIN Iner D9243 IV Sed/Anal- Ea Add'l 15 MIN Iner D9243 IV Sed/Anal- Ea Add'l 15 MIN Iner ICD-10 Dx code: k03.6 Date [place] received request: Sep Date service required: Sep Requesting Community Provider Information: Name of Ordering Provider: Franklin Mario NPI: [id number] Office:Franklin Mario [address] [place] [address] Email: [email or web address] /es/ GEORGE LARSEN ADVANCED MEDICAIL COOK MANAGER Signed: 10/07/2024 08:22 Receipt Acknowledged By: 10/07/2024 11:59 /es/ SHARITA MORGAN DMD STAFF DENTIST, GENERAL DENTIST 10/08/2024 11:48 /es/ LOAN [facility]AGE [facility] RN 10/07/2024 ADDENDUM STATUS: COMPLETED STL DENTAL SERVICE/COMMUNITY CARE RFS DETERMINATION The requested treatment: AUTHORIZED SUBMITTED. AUTHORIZED TREATMENT: D4341 Periodontal Scaling/Root Planting-4+/Quad UL D4341 Periodontal Scaling/Root Planting-4+/Quad LL D4341 Periodontal Scaling/Root Planting-4+/Quad UR D4341 Periodontal Scaling/Root Planting-4+/Quad LR D4910 Periodontal maintenance D7210 Surgical Ext (Flap+Sectioning &/or Bone #32 D9610 DEXAMETHASONE 4MG IV D9239 IV Sed/Anal-First 15 Min D9243 IV Sed/Anal- Ea Add'l 15 MIN Iner D9243 IV Sed/Anal- Ea Add'l 15 MIN Iner D9243 IV Sed/Anal- Ea Add 'l 15 MIN Iner D9243 IV Sed/Anal- Ea Add'l 15 MIN Iner D9243 IV Sed/Anal- Ea Add'l 15 MIN Iner D9243 IV Sed/Anal- Ea Add'l 15 MIN Iner D9243 IV Sed/Anal- Ea Add'l 15 MIN Iner D9613 (EXPAREL) LONG ACTION ANES EACH S #32 D9219 Evaluation for Mod/Deep Sedation ACTION STEPS (select all that apply) * RFS/ADA Dental Claim Form external records reviewed. * New consult(s) placed with corresponding SEOC(s). * to continue dental treatment with community provider. REQUESTING PROVIDER: Franklin Mario NPI: [id number] Office:Franklin Mario [address] [place] [address] Email: [email or web address] COMMUNITY CARE COORDINATION NOTES Please continue [place]'s care for authorized treatment. /los/ SHARITA MORGAN DMD STAFF DENTIST, GENERAL DENTIST Signed: 10/07/2024 12:00 Receipt Acknowledged By: * AWAITING SIGNATURE * LOAN GAGE NANCY [facility]
--- OUTSIDE RECORDS SUMMARY | 2024-11-30 15:29 | XMS_ITS | Encounter Summary ---
Author Name [facility] Organization [facility] Address [address] [place] [address] Care Team Providers Care Welfare Visitor Name Role Phone YONATHAN LINDSAY Primary Care Provider OMEGA Bethea Unavailable Unavailable Selected Encounter This section includes the information on record at [place] for the Encounter. Date/Time Encounter Type Encounter Description Reason Provider Source Sep 11, 2024 11:00 AM THERAPEUTIC EXERCISES PHYSICAL THERAPY ICD-10-CM M54.59 Other low back pain FRANK MALAGON Yumi Encounter Template Text not used by [place] Assessments - Encounter Diagnoses This section includes the primary and secondary diagnoses documented for the Encounter. Date/Time Primary/Secondary Diagnosis Diagnosis Name Provider Source Sep 11, 2024 12:10 PM PRIMARY Other low back pain FRANK MALAGON [facility] Plan of Treatment: Future Appointments (+ 6 months) and Future Tests (+/- 45 days) The Plan of Treatment section includes future care activities for the patient from all [place] treatmentfacilities. This section includes future appointments and future orders which are active, pending or scheduled. Future Appointments This section includes appointments that were scheduled to occur 6 months from the date of the Encounter, up to a maximum of 20 appointments. The data comes from all [place] treatment facilities. Appointment Date/Time Appointment Type Appointme nt Facility Name Sep 12, 2024 02:30 PM AMBULATORY - MEDICINE [facility] Sep 27, 2024 10:15 AM AMBULATORY - REHAB MEDICIN E [facility] Oct 10, 2024 02:00 PM AMBULATORY - PSYCHIATRY [facility] Oct 24, 2024 11:00 AM AMBULATORY - REHAB MEDICIN E [facility] Oct 25, 2024 10:30 AM AMBULATORY - MEDICINE [facility] Nov 01, 2024 01:00 PM AMBULATORY - SURGERY [facility] Nov 13, 2024 12:00 PM AMBULATORY - NONE . MARCELINA S [facility] Nov 13, 2024 02:00 PM AMBULATORY - MEDICINE [facility] November 29, 2024 11:15 AM AMBULATORY - REHAB MEDICIN E [facility] December 16, 2024 02:30 PM AMBULATORY - MEDICINE [facility] December 17, 2024 02:00 PM AMBULATORY - PSYCHIATRY [facility] Jan 13, 2025 11:15 AM AMBULATORY - MEDICINE [facility] Feb 13, 2025 02:00 PM AMBULATORY - MEDICINE [facility] Active, Pending, and Scheduled Orders This section includes a listing of several types of active, pending, and scheduled orders, including clinic medications orders, diagnostic test orders, procedure orders and consult orders; where the start date of the order is 45 days before the date of the Encounter or 45 days after the date of theEncounter. The data comes from all [place] treatment facilities. Test Date/Time Test Type Test Details Facility Name Oct 07, 2024 11:59 AM Consult Order [facility] Oct 07, 2024 11:59 AM Consult Order [facility] End [facility] Advance Directives: All historical and current Section Date Range: From patient's date of to the date document was created. This section includes ALL of a patient's completed or amended [place] Advance and Rescinded Directives. The entries below indicate that a directive exists for the patient, but an actual copy is not included with this document. The data comes from all [place] facilities. Date Advance Directives Provider Source Oct 21, 2022 FRANKLIN KO [facility] Sep 23, 2004 ADVANCE DIRECTIVE CJ RUDOLPH [facility] May 24, 2004 ADVANCE DIRECTIVE SAADIAMITCH Brenda [facility] [place] [facility] May 24, 2000 ADVANCE DIRECTIVE MICHELE CENTENO IS [facility] Nov 11, 1996 ADVANCE DIRECTIVE MAGGIE DRAKE [facility] December 08, 1995 ADVANCE DIRECTIVE KI SANTOYO [facility] Encounter Notes: All associated encounter notes This section contains the clinical notes associated to the Encounter. Date/Time Encounter Note(s) Provider Source Sep 11, 2024 07:38 AM PHYSICAL THERAPY C ONSULT: LOCAL TITLE: PT CONSULT ST STANDARD TITLE: PHYSICAL THERAPY CONSULT DATE OF NOTE: SEP 11, 2024@07:38 ENTRY DATE: SEP 11, 2024@07:38:42 AUTHOR: FRANK MALAGON EXP COSIGNER: URGENCY: STATUS: COMPLETED Chart Review: PMH: 1) Abnormal results of liver function studies 2) Diverticulitis comment: S/P PARTIAL COLECTOMY 11/03 3) Erectile dysfunction 4) Obesity 5) Chest pain 6) Sensory-neural hearing loss 7) Back pain (SNOMED CT 828018664) 8) Benign hypertension (SNOMED CT 62896255) 9) Convulsion comment: nonepilepstic psychogenic 10) Male hypogonadism 11) Conversion disorder (SNOMED CT 373527250) 12) Testicular hypofunction 13) Osteoarthritis of right [...] Chronic fatigue syndrome comment: per recent [facility] evalation in 03/2022. 28) Fibromyalgia 29) Exposure to potentially hazardous substance 30) Chronic post-traumatic stress disorder 31) Major depressive disorder Chart Reveiw: Imaging: --- Referring provider: OMEGA ELI Start of Care: 09/11/2024 Reevaluation due: 10/09/2024 POC through: 12/09/2024 Visits to date: 1 No shows/cancellations: 0 Diagnosis: Other low back pain(ICD-10-CM M54.59) Treatment time: Total: 50 mins. Evaluation: 25 mins. Therapeutic exercise:25 mins. Self-care management: mins. Manual Therapy: mins SUBJECTIVE: Pt reports low back with radiating pain down b/l LE's to the ankles, usually mid calf. Patient reports pain increases with activity, bending, lifting. Patient reports several falls, reports 17 falls down the stairs, reports falling or near falls at least once daily. Reports seizure once a day, memory loss. Reports numbness and tingling in LE's up to the back. --Onset: chronic, reports several TBI's, exposure to nerve agents, fell out a tower in early . 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 Prior function: no recent changes Current function: ambulates with SPC for short distance, walker for longer distances, scooter with longer distances. Has motorized scooter given by friends. Patient requires assistance with getting dressed, cooking meals, bathing. --Pain Rating (0-10):Current: 7 Worst: 10 --Pt. goal(s): pain relief OBJECTIVE: Assistive Device: SPC Cognition: Pt. is alert and oriented. Pt. is appropriate in conversation and answers questions directly. Gait: using SPC, slow short steps SLS: NT Functional squat: Posture: rounded shoulder, wide DULCE. Palpation: diminshed light touch over b/l LE's. Active Trunk Motions: (*=pain) NT due to pain and balance -rotation right -rotation left -sidebend right -sidebend left -forward bend -trunk extension Neural Tension: L R Sciatic Femoral Strength: /5 L R Hip abd 4 4 Hip flex 4 4 Hip ext Hip add Hip IR Hip ER Knee ext 4+ 4+ Knee flex (increased pain with all MMT) BKFO (bent knee fall out): increased rotation Quadruped Rock Back: NT Quadruped Single Arm Elevation: NT Functional abilities: Mod I bed mobility: supine to sitting: sit <-> stand: Flexibility: L R Hamstring tight tight Hip flexor (Alex's) NT External rotators Internal rotators Treatment: Initial Evaluation Therapeutic exercise: Pt was instructed in and demonstrated independence with current HEP x 1 including: -SKTC using belt, hold 10 seconds x 5; 2x daily -LTR x 20 reps; 2x day -BKFO, x 20 reps; 2x daily -clamshells, x 10 reps; 2x daily -hooklying PPT, hold 10 seconds x 5; 2x daily Patient education: Manual Therapy: ASSESSMENT: Pt. presents in PT today with complaints of low back pain with radicular symptoms in b/l LE's that is chronic. Patient reports weakness that comes and goes that leads to frequent falls. Patient lives with and daughter and reqquires assistance with ADL's, Mod I with transfers and gait. Patient would benefit from PT establish HEP to help maintain mobility, LE strength, independence and decrease falls. tx tolerance: CPT CODES: [ ] [id number] PHYSICAL THERAPY EVALUATION: LOW COMPLEXITY Minutes spent on above code: [ ] 12951 PHYSICAL THERAPY EVALUATION: MODERATE COMPLEXITY Minutes spent on above code: [ ] [id number] PHYSICAL THERAPY EVALUATION: HIGH COMPLEXITY Minutes spent on above code: Goals: Short term: 3-4 weeks 1) Pt. will demonstrate independence with current HEP x 1 2) Pt. will report 9/10 pain at worst 3) Pt. to demonstrate independence with proper sitting, standing, and sleeping postures exterminator helper: 1) Pt to demonstrate independence with final HEP x 1 2) Pt. to report 8/10 pain at worst 3) Pt. to report no falls while in PT. 4) Pt. to report decreased assistance with ADLs such as transfers and getting dressed. --PATIENT'S RESPONSE TO PHYSICAL THERAPY INTERVENTION: --BARRIERS: [] NONE. [] Complexities/Conditions/Circ umstances that may impact treatment: [] Cognition: [] Home environment: [] Distance patient lives from facility: [] Support of family/friends to assist: [] Transportation to facility issues: [] Patients willingness to participate: [] Work issues: [] Difficulty getting time off: [] Requires certain time slots to accommodate work schedule: [x] Co-morbidities: neuropathy [x] Other: chronicity --REHABILITATION POTENTIAL: [x] POOR - Limited potential for improvement. [] GUARDED - There exists a question of the potential for improvement [] FAIR - Presents with the potential to improve in some areas while other deficits may remain unchanged. [] GOOD - Presents with the potential to improve to a level of functional independence, though may continue to demonstrate certain minimal limitations with consistent performance of HEP. [] EXCELLENT - Presents with the potential to fully recover with no residual deficits. --CONTINUED SKILLED THERAPY NEEDED TO ADDRESS THE FOLLOWING IMPAIRMENTS/FUNCTIONAL LIMITATIONS AND EDUCATIONAL NEEDS: [x] Pain: [x] Physiological impairments of: [x] Balance: [x] ROM: [x] Strength: [] Other: [] ADL deficits: [] WB activities: [] Self-care: [] Other: [] Education needs: Individual(s) involved: [] Patient: [] Caregiver: [] Achieving (I) with home program: [] Gain further of understanding of self-management of condition: [] Self-Care: [] Caregiver education: [] Other: Equipment: -SPC, scooter, seated walker, FWW, shower chair, getting new shower assist chair, process of getting stair lift. -ordered gait belt Plan: Cont. PT 1X/2-6 wks. for up to 12 weeks for ROM, muscle strengthening, postural re-education, joint/soft tissue mobilization. --PATIENT EDUCATION DOCUMENTATION: Person(s) who received education: [x] Patient; [] Family: [] Other: Education Topic/Teaching Needs: [x] Home program: [] Why compliance with home program is important [] Regarding automated call/letter regarding scheduled appointment; two no show policy; late arriving for appointment; follow up appointment lengths. [] TENS [] Nature of condition [] Other: Methods used Included: [x] Handout(s): [x] Home program: [] Why compliance with home program is important [] Regarding automated call/letter regarding scheduled appointment; two no show policy; late arriving for appointment; follow up appointment lengths. [] TENS [] Other: [x] One-on one: [x] Verbal instructions [x] Visual instructions [x] Tactile cues. [] Other: Teaching Outcomes: [x] Good; [] Fair; [] Poor [x] Patient acknowledged understanding of instruction [] Family/Other acknowledged understanding of instruction /los/ FRANK MALAGON Physical Therapist Signed: 09/11/2024 12:11 FRANK MALAGON [facility]
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
--- OUTSIDE RECORDS SUMMARY | 2024-11-30 15:30 | XMS_ITS | Encounter Summary ---
Author Name [facility] Organization [facility] Address [address] [place] [address] Care Team Providers Care Polysomnography Technician Name Role Phone YONATHAN LINDSAY Primary Care Provider OMEGA Bethea Unavailable Unavailable Selected Encounter This section includes the information on record at [place] for the Encounter. Date/Time Encounter Type Encounter Description Reason Pro vider Source Jan 15, 2024 11:41 AM Outpatient Encounter PRIMARY CARE/MEDICINE IHE Encounter Template Text not used by [place] Plan of Treatment: Future Appointments (+ 6 months) and Future Tests (+/- 45 days) The Plan of Treatment section includes future care activities for the patient from all [place] treatmentfacilities. This section includes future appointments and future orders which are active, pending or scheduled. Future Appointments This section includes appointments that were scheduled to occur 6 months from the date of the Encounter, up to a maximum of 20 appointments. The data comes from all [place] treatment facilities. Appointment Date/Time Appointment Type Appointme nt Facility Name Jan 30, 2024 10:00 AM AMBULATORY - SURGERY [facility] Jan 30, 2024 03:00 PM AMBULATORY - PSYCHIATRY [facility] Feb 02, 2024 02:30 PM AMBULATORY - PSYCHIATRY [facility] Feb 08, 2024 01:30 PM AMBULATORY - NONE [facility] Feb 13, 2024 10:00 AM AMBULATORY - NONE [facility] Feb 15, 2024 10:00 AM AMBULATORY - MEDICINE [facility] Feb 19, 2024 11:00 AM AMBULATORY - NONE [facility] Feb 23, 2024 10:30 AM AMBULATORY - MEDICINE [facility] Feb 26, 2024 03:00 PM AMBULATORY - MEDICINE [facility] Mar 05, 2024 03:00 PM AMBULATORY - PSYCHIATRY [facility] Mar 08, 2024 01:00 PM AMBULATORY - PSYCHIATRY [facility] Mar 26, 2024 03:00 PM AMBULATORY - PSYCHIATRY [facility] Apr 03, 2024 11:00 AM AMBULATORY - MEDICINE [facility] Apr 08, 2024 02:00 PM AMBULATORY - SURGERY [facility] Apr 09, 2024 01:00 PM AMBULATORY - NONE [facility] Apr 19, 2024 10:00 AM AMBULATORY - NONE [facility] Apr 23, 2024 03:00 PM AMBULATORY - MEDICINE [facility] Apr 29, 2024 01:00 PM AMBULATORY - NONE [facility] Apr 30, 2024 03:00 PM AMBULATORY - PSYCHIATRY [facility] May 03, 2024 10:30 AM AMBULATORY - SURGERY [facility] Active, Pending, and Scheduled Orders This section includes a listing of several types of active, pending, and scheduled orders, including clinic medications orders, diagnostic test orders, procedure orders and consult orders; where the start date of the order is 45 days before the date of the Encounter or 45 days after the date of theEncounter. The data comes from all [place] treatment facilities. Test Date/Time Test Type Test Details Facility Name December 19, 2023 12:00 AM Laboratory - Chemistry Order ANTI-MITOCHONDRIAL AB (STL) GOLD/RED SST SERUM SP [facility] December 19, 2023 12:00 AM Laboratory - Chemistry Order ALPHA-1 ANTITRYPSIN (STL) GREEN LI/HEP BLD/PLAS PLASMA SP [facility] December 19, 2023 12:00 AM Laboratory - Chemistry Order ACTIN (SMOOTHMUSCLE) ANTIBODY IGG GOLD/RED SST [facility] December 19, 2023 12:00 AM Laboratory - Chemistry Order CERULOPLASMIN (STL-PB) GOLD/RED SST [facility] SP [facility] Vital Signs: All taken on the encounter date This section contains inpatient and outpatient Vital Signs collected on the date of the Encounter. Date/Time Temperature Pulse Blood Pressure Respiratory Rate SP02 Pain Height Weight Body Mass Index Source Jan 15, 2024 11:21 AM 97.9 70 130/75 20 95 8 72 278 38 [facility] Social History: Smoking Status (Most current) and Tobacco Use (All prior to encounter date) This section includes the most current, and the historical, smoking and tobacco- related health factors from the [place] facility where the Encounter took place. Current Smoking Status This section includes the most current smoking, or tobacco-related health factor, from the [place] facility where the Encounter took place. Date/Time Current Smoking Status Comment Irena ity Jul 04, 2023 01:09 PM VA-TOBACCO USER EVERY DAY [facility] Tobacco Use History This section includes a history of the smoking, or tobacco-related health factors, that were collected on or before the date of the Encounter. The data comes from the [place] facility where the Encounter took place. Date/Time Smoking Status/Tobacco Use Comment F acility Jul 04, 2023 01:09 PM VA-TOBACCO USE ADVICE [facility] Jul 04, 2023 01:09 PM VA-TOBACCO USE RECORD CLERK NO [facility] Jul 04, 2023 01:09 PM VA-TOBACCO USE MED NO [facility] Jul 04, 2023 01:09 PM VA-TOBACCO USE WI 30 MIN OF WAKEUP [facility] Jul 04, 2023 01:09 PM VA-TOBACCO USER EVERY DAY [facility] Jul 28, 2022 01:00 PM VA-TOBACCO FORMER USER [facility] Jul 28, 2022 01:00 PM VA-TOBACCO QUIT 15 YRS OR MORE [facility] Jul 13, 2021 01:00 PM VA-TOBACCO DOESNT USE WI 30 MIN WAKEUP [facility] Jul 13, 2021 01:00 PM VA-TOBACCO USE 30 YEARS OR MORE [facility] Jul 13, 2021 01:00 PM VA-TOBACCO USE ADVICE [facility] Jul 13, 2021 01:00 PM VA-TOBACCO USE RECORD CLERK NO [facility] Jul 13, 2021 01:00 PM VA-TOBACCO USE MED NO [facility] Jul 13, 2021 01:00 PM VA-TOBACCO USER SOME DAYS [facility] May 20, 2020 03:30 PM VA-TOBACCO DOESNT USE WI 30 MIN WAKEUP [facility] May 20, 2020 03:30 PM VA-TOBACCO USE > 1 5 LESS THAN 30 YEARS [facility] May 20, 2020 03:30 PM VA-TOBACCO USE ADVICE [facility] May 20, 2020 03:30 PM VA-TOBACCO USE RECORD CLERK NO [facility] May 20, 2020 03:30 PM VA-TOBACCO USE MED NO [facility] May 20, 2020 03:30 PM VA-TOBACCO USER SOME DAYS [facility] Jun 26, 2018 11:30 AM VA-TOBACCO FORMER USER [facility] Jun 26, 2018 11:30 AM VA-TOBACCO QUIT 15 YRS OR MORE [facility] Mar 02, 2017 07:35 AM QUIT TOBACCO >7 YEARS AGO [facility] May 25, 2016 05:48 AM CURRENT TOBACCO USER [facility] May 25, 2016 05:48 AM TOBACCO MEDS OFFER ED BUT DECLINED [facility] Jun 23, 2015 02:29 PM QUIT TOBACCO >7 YEARS AGO [facility] Sep 12, 2014 06:15 AM CURRENT TOBACCO USER [facility] Sep 12, 2014 06:15 AM QUIT TOBACCO >7 YEARS AGO [facility] Sep 12, 2014 06:15 AM TOBACCO MEDS OFFER ED BUT DECLINED [facility] Jun 25, 2013 02:47 PM QUIT TOBACCO >7 YEARS AGO [facility] May 04, 2010 12:36 PM LIFETIME NON-USER OF TOBACCO [facility] Jul 30, 2009 11:12 AM CURRENT TOBACCO USER [facility] Mar 20, 2008 01:00 PM CURRENT TOBACCO USER [facility] Mar 20, 2008 01:[address] OP SMOKING CLINIC [facility] Mar 20, 2008 01:00 PM TOBACCO OFFERRED P T MEDS (PROVIDER) [facility] Mar 06, 2007 10:38 AM QUIT TOBACCO >7 YEARS AGO [facility] May 09, 2006 09:29 AM CURRENT TOBACCO USER [facility] Aug 27, 2004 10:41 AM CURRENT TOBACCO USER [facility] Aug 27, 2004 10:41 AM SMOKER <10 [facility] Advance Directives: All historical and current Section Date Range: From patient's date of to the date document was created. This section includes ALL of a patient's completed or amended [place] Advance and Rescinded Directives. The entries below indicate that a directive exists for the patient, but an actual copy is not included with this document. The data comes from all [place] facilities. Date Advance Directives Provider Source Oct 21, 2022 FRANKLIN KO [facility] Sep 23, 2004 ADVANCE DIRECTIVE CJ RUDOLPH [facility] May 24, 2004 ADVANCE DIRECTIVE MITCH ZEE Kena [facility] May 24, 2000 ADVANCE DIRECTIVE MICHELE CENTENO Kena [facility] Nov 11, 1996 ADVANCE DIRECTIVE MAGGIE DRAKE [facility] December 08, 1995 ADVANCE DIRECTIVE KI SANTOYO [facility] Radiology Reports: +/- 30 [...] the Encounter. The data comes from all [place] treatment facilities. Date/Time Radiology Report Provider Source Jan 15, 2024 12:42 PM US ABDOMEN LIMITED W/BLOOD FLOW DOPPLER: BETTY HAAS [id number] -1970 M Exm Date: JAN 15, 2024@12:42 Req Phys: WHITE,KOSTA E Pat Loc: [facility]-GI CONSULT (Req'g Loc) Img Loc: [facility]ULTRASOUND Service: Unknown [facility], [address] [place] [address] (Case [id number] COMPLETE) US ABDOMEN LTD, SINGLE ORG OR CHRISTIN(US Detailed) CPT:83725 Reason for Study: elevated LFTs (Case [id number] COMPLETE) US BLOOD FLOW ABD/RENAL (LTD) (US Detailed) CPT:79016 Clinical History: Organ to Image: Liver Reason for exam: elevated LFTs Report Status: Verified Date Reported: JAN 15, 2024 Date Verified: JAN 15, 2024 Oracle Technical Developer E-Sig:/ES/DUNIA DIANA Report: CASE #: [id number], [id number] EXAMINATION: Limited sonogram of the right upper [...] or cholecystitis. Report dictated by Lucien Ruiz (resident services director) I, Dunia Diana, have reviewed the images and report and concur with these findings. Primary Interpreting Staff: DUNIA DIANA MD (Oracle Technical Developer) Primary Interpreting Resident: LUCIEN RUIZ MD /DUNIA MARTINES [facility] Jan 01, 2024 07:18 PM ANKLE,RIGHT, 3 VIEWS: BETTY HASA [id number] -1970 M Exm Date: JAN 01, 2024@19:18 Req Phys: MONICA JULES Loc: [facility]-EMERGENCY SOFT IRON INSPECTOR (Req'g Img Loc: [facility]MAIN RADIOLOGY SUITE Service: Unknown [facility], [address] [place] [address] (Case [id number] COMPLETE) ANKLE,RIGHT, 3 VIEWS (RAD Detailed) CPT:94477 Proc Modifiers : RIGHT Reason for Study: Fell Clinical History: Right anterior aspect just proximal of mid-point Report Status: Verified Date Reported: JAN 01, 2024 Date Verified: JAN 01, 2024 Oracle Technical Developer E-Sig: Report: KNEE,RIGHT,1 OR 2 VIEWS, TIBIA & FIBULA,RIGHT, 2 VIEWS, ANKLE,RIGHT, 3 VIEWS HISTORY: Right lower leg. Right anterior aspect just proximal of mid-point COMPARISON: Right knee radiograph 06/04/2018 TECHNIQUE: 2 views of the right knee, 4 views of the right tibia/fibula, and 3 views of the right ankle, submitted to the [place] National Teleradiology Program (NTP) for interpretation. FINDINGS: [...] and ankle. READING PHYSICIAN: Rogelio Alford MD -[id number] 01/01/2024 18:34 PDT [facility] National Teleradiology Program [phone] (For Medical Practitioner Use Only) Attention Patients / Veterans: If you have questions or concerns about these test results, please contact your ordering provider or primary care team. Primary Interpreting Staff: RADIOLOGY,OUTSIDE SERVICE, Staff Physician / RADIOLOGY,OUTSIDE SERVICE [facility] Jan 01, 2024 07:18 PM TIBIA & FIBULA,RIGHT, 2 VIEWS: BETTY HAAS [id number] -1970 M Exm Date: JAN 01, 2024@19:18 Req Phys: MONICA JULES Loc: [facility]-EMERGENCY SOFT IRON INSPECTOR (Req'g Img Loc: [facility]MAIN RADIOLOGY SUITE Service: Unknown [facility], [address] [place] [address] (Case [id number] COMPLETE) TIBIA & FIBULA,RIGHT, 2 VIEWS (RAD Detailed) CPT:05193 Proc Modifiers : RIGHT Reason for Study: Right lower leg Clinical History: Right anterior aspect just proximal of mid-point Report Status: Verified Date Reported: JAN 01, 2024 Date Verified: JAN 01, 2024 Oracle Technical Developer E-Sig: Report: KNEE,RIGHT,1 OR 2 VIEWS, TIBIA & FIBULA,RIGHT, 2 VIEWS, ANKLE,RIGHT, 3 VIEWS HISTORY: Right lower leg. Right anterior aspect just proximal of mid-point COMPARISON: Right knee radiograph 06/04/2018 TECHNIQUE: 2 views of the right knee, 4 views of the right tibia/fibula, and 3 views of the right ankle, submitted to the [place] National Teleradiology Program (NTP) for interpretation. FINDINGS: [...] and ankle. READING PHYSICIAN: Rogelio Alford MD -[id number] 01/01/2024 18:34 PDT [facility] National Teleradiology Program [phone] (For Medical Practitioner Use Only) Attention Patients / Veterans: If you have questions or concerns about these test results, please contact your ordering provider or primary care team. Primary Interpreting Staff: RADIOLOGY,OUTSIDE SERVICE, Staff Physician / RADIOLOGY,OUTSIDE SERVICE [facility] Jan 01, 2024 07:18 PM KNEE,RIGHT,1 OR 2 VIEWS: BETTY HAAS [id number] -1970 M Exm Date: JAN 01, 2024@19:18 Req Phys: MONICA JULES Loc: [facility]EMERGENCY SOFT IRON INSPECTOR (Req'g Img Loc: [facility]MAIN RADIOLOGY SUITE Service: Unknown [facility], [address] [place] [address] (Case [id number] COMPLETE) KNEE,RIGHT,1 OR 2 VIEWS (RAD Detailed) CPT:79279 Proc Modifiers : RIGHT, LATERAL Reason for Study: right lower leg Clinical History: Right anterior aspect just proximal of mid-point Report Status: Verified Date Reported: JAN 01, 2024 Date Verified: JAN 01, 2024 Oracle Technical Developer E-Sig: Report: KNEE,RIGHT,1 OR 2 VIEWS, TIBIA & FIBULA,RIGHT, 2 VIEWS, ANKLE,RIGHT, 3 VIEWS HISTORY: Right lower leg. Right anterior aspect just proximal of mid-point COMPARISON: Right knee radiograph 06/04/2018 TECHNIQUE: 2 views of the right knee, 4 views of the right tibia/fibula, and 3 views of the right ankle, submitted to the [place] National Teleradiology Program (NTP) for interpretation. FINDINGS: [...] and ankle. READING PHYSICIAN: Rogelio Alford MD -[id number] 01/01/2024 18:34 PDT [facility] National Teleradiology Program [phone] (For Medical Practitioner Use Only) Attention Patients / Veterans: If you have questions or concerns about these test results, please contact your ordering provider or primary care team. Primary Interpreting Staff: RADIOLOGY,OUTSIDE SERVICE, Staff Physician / RADIOLOGY,OUTSIDE SERVICE [facility] Encounter Notes: All associated encounter notes This section contains the clinical notes associated to the Encounter. Date/Time Encounter Note(s) Provider Source Jan 15, 2024 12:36 PM CARDIOLOGY DIAGNOS TIC STUDY CONSULT: LOCAL TITLE: EKG CONSULT [facility] STANDARD TITLE: CARDIOLOGY DIAGNOSTIC STUDY CONSULT DATE OF NOTE: JAN 15, 2024@12:36:22 ENTRY DATE: JAN 15, 2024@12:36:22 AUTHOR: CLINICAL,DEVICE PRO EXP COSIGNER: URGENCY: STATUS: COMPLETED DOCUMENT IN VISTA IMAGING SEE FULL REPORT IN VISTA IMAGING SIGNATURE NOT REQUIRED SEE SIGNATURE IN VISTA IMAGING ([place] EKG) AUTO-INSTRUMENT DIAGNOSIS Procedure: 05050 12 Lead ECG Release Status: Released Off-Line Verified Date Verified: Jan 15, 2024@12:36:14 90909.2 Ventricular Rate: 67 BPM 01760.3 Atrial Rate: 67 BPM 30102.4 P-R Interval: 190 ms 19640.5 QRS Duration: 132 ms 73818.6 Q-T Interval: 424 ms 84928 QTC Calculation(Bazett)448 ms 80844.12 Calculated P [place]: 56 degrees 41934.13 Calculated R [place]: 0 degrees 04370.14 Calculated T [place]: 12 degrees Normal sinus rhythm Right bundle branch block Abnormal ECG When compared with ECG of 25-NOV-2022 09:48, Left posterior fascicular block is no longer Present Administrative Closure: 01/15/2024 by: CLINICAL,DEVICE PROXY SERVICE CLINICAL,DEVICE PROXY SERVICE [facility]
--- OUTSIDE RECORDS SUMMARY | 2024-11-30 15:30 | XMS_ITS | Encounter Summary ---
Author Name [facility] [place] [facility] [place] Address [address] [place] [address] Care Team Providers Care Vice President Of Human Resources Name Role Phone YONATHAN CORONEL Primary Care Provider OMEGA Bethea Unavailable Unavailable Selected Encounter This section includes the information on record at [place] for the Encounter. Date/Time Encounter Type Encounter Description Reason Provider Source December 15, 2023 06:30 PM OFFICE O/P EST SF 10 MIN GENERAL INTERNAL MEDICINE ICD-10-CM R21 Rash and other nonspecific skin eruption MOON ELKINS IHE Encounter Template Text not used by [place] Assessments - Encounter Diagnoses This section includes the primary and secondary diagnoses documented for the Encounter. Date/Time Primary/Secondary Diagnosis Diagnosis Name Provider Source December 15, 2023 07:01 PM PRIMARY Rash and other nonspecific skin eruption MOON ELKINS [facility] Plan of Treatment: Future [...] The data comes from all [place] treatment facilities. Appointment Date/Time Appointment Type Appointme nt Facility Name December 18, 2023 05:42 PM AMBULATORY - MEDICINE [facility] December 19, 2023 01:00 PM AMBULATORY - MEDICINE [facility] December 19, 2023 03:00 PM AMBULATORY - PSYCHIATRY [facility] December 21, 2023 04:00 PM AMBULATORY - PSYCHIATRY [facility] Jan 01, 2024 07:02 PM AMBULATORY - MEDICINE [facility] Jan 11, 2024 10:15 AM AMBULATORY - MEDICINE [facility] Jan 15, 2024 11:15 AM AMBULATORY - MEDICINE [facility] Jan 15, 2024 01:00 PM AMBULATORY - NONE [facility] Jan 30, 2024 10:00 AM AMBULATORY - SURGERY [facility] Jan 30, 2024 03:00 PM AMBULATORY - PSYCHIATRY [facility] Feb 02, 2024 02:30 PM AMBULATORY - PSYCHIATRY [facility] Feb 08, 2024 01:30 PM AMBULATORY - NONE [facility] Feb 13, 2024 10:00 AM AMBULATORY - NONE [facility] Feb 15, 2024 10:00 AM AMBULATORY - MEDICINE [facility] Feb 19, 2024 11:00 AM AMBULATORY - NONE [facility] Feb 23, 2024 10:30 AM AMBULATORY - MEDICINE [facility] Feb 26, 2024 03:00 PM AMBULATORY - MEDICINE [facility] Mar 05, 2024 03:00 PM AMBULATORY - PSYCHIATRY [facility] Mar 08, 2024 01:00 PM AMBULATORY - PSYCHIATRY [facility] Mar 26, 2024 03:00 PM AMBULATORY - PSYCHIATRY [facility] Active, Pending, and Scheduled Orders This section includes a listing of several types of active, pending, and scheduled orders, including clinic medications orders, diagnostic test orders, procedure orders and consult orders; where the start date of the order is 45 days before the date of the Encounter or 45 days after the date of theEncounter. The data comes from all [place] treatment facilities. Test Date/Time Test Type Test Details Facility Name Nov 28, 2023 12:00 AM Laboratory - Chemistry Order AMMONIA (STL-MA) WHITE CAP EDTA PLASMA SP [facility] December 19, 2023 12:00 AM Laboratory - Chemistry Order ALPHA-1 ANTITRYPSIN (STL) GREEN LI/HEP BLD/PLAS PLASMA SP [facility] December 19, 2023 12:00 AM Laboratory - Chemistry Order ANTI-MITOCHONDRIAL AB (STL) GOLD/RED SST SERUM SP [facility] December 19, 2023 12:00 AM Laboratory - Chemistry Order ACTIN (SMOOTHMUSCLE) ANTIBODY IGG GOLD/RED SST SERUM SP [facility] December 19, 2023 12:00 AM Laboratory - Chemistry Order CERULOPLASMIN (L-PB) GOLD/RED SST SERUM [facility] [...] Type Comment December 14, 2023 11:58 AM [facility] B12 SERUM Specimen Type: SERUM No comment entered. Ordering Provider: SHELIA MOREIRA Report Released Date/Time: Nov 28, 2023 11:26 AM Reporting Lab: [facility] [address] [place] [id number] Performing Lab: [address] [address] B12 423 pg/mL 213-816 December 14, 2023 11:58 AM [facility] CBC BLOOD Specimen Type: BLOOD No comment entered. Ordering Provider: SHELIA MOREIRA Report Released Date/Time: Nov 28, 2023 11:26 AM Reporting Lab: [facility] [address] [place] [address] Performing Lab: [address] [address] WBC 5.9 10*3/uL 3.6-11.2 RBC 5.18 10*6/uL [...] 0.03 10*3/uL 0.00-0. 20 December 14, 2023 11:58 AM [facility] COMPREHENSIVE METABOLIC PANEL PLASMA Specimen Type: PLASMA Comment: No hemolysis noted. Ordering Provider: SHELIA MOREIRA Report Released Date/Time: Nov 28, 2023 11:26 AM Reporting Lab: [facility] [address] [place] [address] Performing Lab: [address] [address] CREATININE 0.90 mg/dL 0.7-1.3 UREA NITROGEN 12.9 [...] (CKD-EPI 2020) 100.9 >60 December 14, 2023 11:57 AM [facility] HGA1C BLOOD Specimen Type: BLOOD No comment entered. Ordering Provider: RAKEL TORRES Report Released Date/Time: December 14, 2023 11:26 AM Reporting Lab: [facility] [address] [facility] [address] Performing Lab: [address] [address] HGA1C 6.8 H 4.0-6.0 December 14, 2023 11:57 AM [facility] VITAMIN D, 25-HYDROXY SERUM Specimen Type: SE RUM No comment entered. Ordering Provider: RAKEL TORRES Report Released Date/Time: December 14, 2023 11:35 AM Reporting Lab: [address] [address] Performing Lab: [address] [address] VITAMIN D, 25-HYDROXY 44.3 ng/mL 30-96 Social [...] smoking at 14yrs,smoked 2packs a day [facility] Tobacco Use History This section includes a history of the smoking, or tobacco-related health factors, that were collected on or before the date of the Encounter. The data comes from the [place] facility where the Encounter took place. Date/Time Smoking Status/Tobacco Use Comment F acility Mar 07, 2000 12:35 PM CURRENT NON-TOBACC O USER-HX OF USE [facility] Advance Directives: All historical and current [...] Sep 23, 2004 ADVANCE DIRECTIVE CJ RUDOLPH [facility] May 24, 2004 ADVANCE DIRECTIVE SAADIAMITCH IS [facility] May 24, 2000 ADVANCE DIRECTIVE MICHELE CENTENO IS [facility] Nov 11, 1996 ADVANCE DIRECTIVE MAGGIE DRAKE [facility] December 08, 1995 ADVANCE DIRECTIVE NATANAELKI [facility] Radiology Reports: +/- 30 days of [...] the Encounter. The data comes from all [place] treatment facilities. 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 Right anterior aspect just proximal of mid-point COMPARISON: Right knee radiograph 06/04/2018 TECHNIQUE: 2 views of the right knee, 4 views of the right tibia/fibula, and 3 views of the right ankle, submitted to the [place] National Teleradiology Program (NTP) for interpretation. FINDINGS: [...] and ankle. READING PHYSICIAN: Rogelio Alford MD -[id number] 01/01/2024 18:34 PDT [facility] National Teleradiology Program [phone] (For Medical Practitioner Use Only) Attention Patients / Veterans: If you have questions or concerns about these test results, please contact your ordering provider or primary care team. Primary Interpreting Staff: RADIOLOGY,OUTSIDE SERVICE, Staff Physician / RADIOLOGY,OUTSIDE SERVICE [facility] Jan 01, 2024 07:18 PM TIBIA & FIBULA,RIGHT, 2 VIEWS: BETTY HAAS [id number] -1970 M Exm Date: JAN 01, 2024@19:18 Req Phys: MONICA JULES Loc: [place]-EMERGENCY DEPUTY DIRECTOR OF PUBLIC WORKS (Req'g Img Loc: -MAIN RADIOLOGY SUITE Service: Unknown [facility], [facility] [address] [place] [address] (Case [id number] COMPLETE) TIBIA & FIBULA,RIGHT, 2 VIEWS (RAD Detailed) CPT:94071 Proc Modifiers : RIGHT Reason for Study: Right lower leg Clinical History: Right anterior aspect just proximal of mid-point Report Status: Verified Date Reported: JAN 01, 2024 Date Verified: JAN 01, 2024 Floor Grinder E-Sig: Report: KNEE,RIGHT,1 OR 2 VIEWS, TIBIA & FIBULA,RIGHT, 2 VIEWS, ANKLE,RIGHT, 3 VIEWS HISTORY: Right lower leg. Right anterior aspect just proximal of mid-point COMPARISON: Right knee radiograph 06/04/2018 TECHNIQUE: 2 views of the right knee, 4 views of the right tibia/fibula, and 3 views of the right ankle, submitted to the [place] National Teleradiology Program (NTP) for interpretation. FINDINGS: [...] and ankle. READING PHYSICIAN: Rogelio Alford MD -[id number] 01/01/2024 18:34 PDT [facility] National Teleradiology Program [phone] (For Medical Practitioner Use Only) Attention Patients / Veterans: If you have questions or concerns about these test results, please contact your ordering provider or primary care team. Primary Interpreting Staff: RADIOLOGY,OUTSIDE SERVICE, Staff Physician / RADIOLOGY,OUTSIDE SERVICE [facility] Jan 01, 2024 07:18 PM KNEE,RIGHT,1 OR 2 VIEWS: BETTY HAAS [id number] -1970 M Ex Date: JAN 01, 2024@19:18 Req Phys: MONICA JULES Loc: [place]-EMERGENCY DEPUTY DIRECTOR OF PUBLIC WORKS (Req'g Img Loc: -MAIN RADIOLOGY SUITE Service: [facility], [facility] [address] [place] [address] (Case [id number] COMPLETE) KNEE,RIGHT,1 OR 2 VIEWS (RAD Detailed) CPT:66663 Proc Modifiers : RIGHT, LATERAL Reason for Study: right lower leg Clinical History: Right anterior aspect just proximal of mid-point Report Status: Verified Date Reported: JAN 01, 2024 Date Verified: JAN 01, 2024 Floor Grinder E-Sig: Report: KNEE,RIGHT,1 OR 2 VIEWS, TIBIA & FIBULA,RIGHT, 2 VIEWS, ANKLE,RIGHT, 3 VIEWS HISTORY: Right lower leg. Right anterior aspect just proximal of mid-point COMPARISON: Right knee radiograph 06/04/2018 TECHNIQUE: 2 views of the right knee, 4 views of the right tibia/fibula, and 3 views of the right ankle, submitted to the [place] National Teleradiology Program (NTP) for interpretation. FINDINGS: [...] and ankle. READING PHYSICIAN: Rogelio Alford MD -[id number] 01/01/2024 18:34 PDT [facility] National Teleradiology Program [phone] (For Medical Practitioner Use Only) Attention Patients / Veterans: If you have questions or concerns about these test results, please contact your ordering provider or primary care team. Primary Interpreting Staff: RADIOLOGY,OUTSIDE SERVICE, Staff Physician / RADIOLOGY,OUTSIDE SERVICE [facility] Encounter Notes: All associated encounter notes This section contains the clinical notes associated to the Encounter. Date/Time Encounter Note(s) Provider Source December 15, 2023 06:53 PM URGENT CARE NOTE: LOCAL TITLE: V15 [facility] URGENT CARE VISIT STANDARD TITLE: URGENT CARE NOTE DATE OF NOTE: DECEMBER 15, 2023@18:53 ENTRY DATE: DECEMBER 15, 2023@18:53:16 AUTHOR: MAKI ELKINS EXP COSIGNER: URGENCY: STATUS: COMPLETED PRIMARY CARE TEMPLATE Patient is a 53 year old (Mar) WHITE MALE. Patient's identity was verified with at least 2 personal identifiers. *Appointment type: Type of Visit: Video Visit: Telehealth Disclosure: Visit conducted by synchronous telehealth. Patient verbal consent obtained. Location/emergency number confirmed. Environment surveyed and all participants identified. Virtual conference room locked. Emergency contact information was obtained as follows: Confirmed [place]'s Non-VA location for this appointment: Patient's current address [address] [place] [address] Patient's Primary NOK: ALICJA HAAS Relation: 84Sujit MEJIA Phone: [place], [place] [address] Chief Complaint: rash History of Present Illness: Mr. Haas video visit for rash. [place] with small red raised bumps on trunk and extremities, none on face. He states they are itchy. He denies any exposure to anything new. He is using OTC medication for rash. denies any other s/s. He states they were there before 12/03/23. to use anitbacterial soap with daily bathing. 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 [place] to be seen in ER if s/s increase and cannot be managed at home. to f/u with PCP or UC if not improving. verbalized understanding and is agreeable with plan of care. PMH/Active Problem List 1) Abnormal results of liver function studies 2) Diverticulitis 3) Erectile dysfunction 4) Obesity 5) Chest pain 6) Sensory-neural hearing loss 7) Back pain (SNOMED CT 515279809) 8) Benign hypertension (SNOMED CT 89915299) 9) Convulsion 10) Male hypogonadism 11) Conversion [...] Fibromyalgia 29) Exposure to potentially hazardous substance Problem list was reviewed. SOCIAL HISTORY Noncontributory Family History: Noncontributory MEDICATIONS: Active and Recently Outpatient Medications (including Supplies): Active Outpatient Medications [...] STOOL/DIARRHEA. 11) DRESSING,POLYSKIN II 2 X 2.75IN JEFFERY#0142 USE/APPLY ACTIVE DRESSING(S) TO AFFECTED AREA(S) DIRECTED [...] 30 MINUTES BEFORE EATING. 16) GLUCOSE SENSOR [employer] BREN 3 USE SENSOR EVERY ACTIVE 2 WEEKS FOR BLOOD SUGAR MONITORING CHANGE SENSOR/SITE EVERY 14 DAYS. TO REPLACE SENSOR FOR ANY REASON OR FOR TECHNICAL HELP PLEASE CALL [employer] DESK: -SPECIFIC PHONE NUMBER: ([phone]). 17) LIDOCAINE 2.5/PRILOCAINE 2.5% CREAM APPLY LIGHTLY [...] DISCONTINUE BEFORE GETTING XRAY DYE. 20) NYSTATIN 262723 UNT/GM CREAM APPLY LIBERALLY TO ACTIVE AFFECTED [...] AREA(S) TWICE A DAY 27 Total Medications Compared newly ordered medications and medication changes to active medications and non-VA medications, and then reviewed medications with patient and/or caregiver. All discrepancies noted and reconciled. Patient, or caregiver, was provided with reconciled medications list and advised to provide to all non VA providers. Potential adverse reactions of new medications were discussed with the patient. REVIEW OF SYSTEMS As per HPI, otherwise unremarkable. PHYSICAL EXAMINATION Telephone visit: [facility] telephone visit, limited exam, A&O x3, NAD. Speaks clearly and appropriately. VITALS Most recent vital signs: No data available BMI: 37.5 ASSESSMENT/PLAN 1. Rash- not controlled for at least 2 weeks. to use anitbacterial soap with daily bathing. 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 [place] to be seen in ER if s/s increase and cannot be managed at home. to f/u with PCP or UC if not improving. [place] verbalized understanding and is agreeable with plan of care. Shared medical decision making occurred during this visit with the . Questions answered and is agreeable with treatment plan. All new medications discussed/reviewed with [place]/caregiver including side effects/teratogenic side effects. FOLLOW UP: Advised to keep all scheduled medical and follow-up appointments. [place] was advised to seek medical treatment if symptoms do not improve and/or worsens. /los/ MAKI ELKINS NURSE PRACTITIONER Signed: 12/15/2023 19:01 Receipt Acknowledged By: 12/15/2023 21:51 /los/ Yonathan Coronel [facility] NURSE PRACTITIONER MAKI ELKNIS [facility] December 15, 2023 06:48 PM PHARMACY NOTE: LOCAL TITLE: V15 [facility] OUTSIDE PRESCRIPTION STANDARD TITLE: PHARMACY NOTE DATE OF NOTE: DECEMBER 15, 2023@18:48 ENTRY DATE: DECEMBER 15, 2023@18:48:20 AUTHOR: MAKI ELKINS EXP COSIGNER: URGENCY: STATUS: COMPLETED [facility] [address] [place] [address] [facility] [address] [place] [address] [facility] [address] [place] [address] BETTY HAAS [address] [place], [place] [address] : Mar ALLERGIES: NIACIN, SIMVASTATIN, COREG 25MG TABLET, PRAVASTATIN, SHRIMP, ATORVASTATIN ROSUVASTATIN, LOVASTATIN, PITAVASTATIN The orders below are to be filled by any outpatient pharmacy: TRIAMCINOLONE ACETONIDE 0.025% CREAM Sig: APPLY SPARINGLY TO AFFECTED AREA(S) TWICE A DAY FOR ATOPIC DERMATITIS Quantity:__4 tubes Refills:___1 DATE: DECEMBER 15, 2023 Signature:____Maki Elkins OLEO HASHER AND RENDERER-C CURRENT USER CURRENT USER'S SARAHY# CURRENT USER'S NPI BETTY HAAS * OPTUM: Enter [facility]/'s pharmacy claims using * * the following information: * Step 1: Enter BIN: [id number] Step 2: Enter PCN: ADV Step 3: Enter Rx Group: [id number] Step 4: Enter ID: 10-digit ID or N: [id number] Step 5: Enter [place]'s date of (re-enter in YYMMDD format) ( from VistA: Mar) For questions, please call the [employer] Pharmacy Help Desk at [phone]. [facility] [address] [place] [address] [address] [place] [address] Get directions on Google Mapsto [facility] Main number: [phone] /es/ MAKI ELKINS NURSE PRACTITIONER Signed: 12/15/2023 18:50 MAKI ELKINS [facility]
--- OUTSIDE RECORDS SUMMARY | 2024-11-30 15:30 | XMS_ITS ---
Author Name [facility] Organization [facility] [place] Address [address] [place] [address] Care Team Providers Care Manager Lighting Name Role Phone YONATHAN CORONEL Primary Care Provider OMEGA Bethea Unavailable Unavailable Selected Encounter This section includes the information on record at [place] for the Encounter. Date/Time Encounter Type Encounter Description Reason Provider Source Apr 19, 2024 03:34 PM Outpatient Encounter ADMIN PAT ACTIVTIES (MASNONCT) REINIER MORENO [facility] Encounter Template Text not used by [place] Plan of Treatment: Future Appointments (+ 6 months) and Future Tests (+/- 45 days) The Plan of Treatment section includes future care activities for the patient from all [place] treatmentfacilities. This section includes future appointments and future orders which are active, pending or scheduled. Future Appointments This section includes appointments that were scheduled to occur 6 months from the date of the Encounter, up to a maximum of 20 appointments. The data comes from all [place] treatment facilities. Appointment Date/Time Appointment Type Appointme nt Facility Name Apr 23, 2024 03:00 PM AMBULATORY - MEDICINE [facility] Apr 29, 2024 01:00 PM AMBULATORY - NONE [facility] Apr 30, 2024 03:00 PM AMBULATORY - PSYCHIATRY [facility] May 03, 2024 10:30 AM AMBULATORY - SURGERY [facility] May 21, 2024 01:00 PM AMBULATORY - PSYCHIATRY [facility] May 31, 2024 10:30 AM AMBULATORY - SURGERY . [facility] Jun 05, 2024 09:30 AM AMBULATORY - NONE [facility] Jun 14, 2024 11:00 AM AMBULATORY - SURGERY [facility] Jun 17, 2024 03:00 PM AMBULATORY - MEDICINE [facility] Jun 25, 2024 03:00 PM AMBULATORY - PSYCHIATRY [facility] Jul 01, 2024 10:30 AM AMBULATORY - NONE [facility] Jul 08, 2024 10:30 AM AMBULATORY - REHAB MEDICIN E [facility] Jul 18, 2024 02:00 PM AMBULATORY - MEDICINE [facility] Jul 22, 2024 03:00 PM AMBULATORY - NONE [facility] Aug 02, 2024 01:30 PM AMBULATORY - SURGERY [facility] Aug 08, 2024 02:00 PM AMBULATORY - PSYCHIATRY [facility] Aug 09, 2024 02:00 PM AMBULATORY - SURGERY [facility] Aug 13, 2024 03:00 PM AMBULATORY - PSYCHIATRY [facility] Aug 27, 2024 09:30 AM AMBULATORY - REHAB MEDICIN E [facility] Sep 03, 2024 10:30 AM AMBULATORY - NONE [facility] Lab Results: +/- 30 days of the encounter This section includes the Chemistry and Hematology Lab Results on record with [place] for the patient. Radiology Reports and Pathology Reports are provided separately, in subsequent sections. Lab Results This section contains the Chemistry/Hematology Results that were resulted 30 days before or 30 daysafter the date of the Encounter. Date/Time Source Result Type Result - Unit Interpretation Reference Range Specimen Type Comment Apr 20, 2024 11:39 AM [facility] GLUCOSE,BLOOD-poct (STL) BLOOD Specimen Type: BLOOD Comment: Test Performed by: [id number] Meter #: [id number] Ordering Provider: KIKI PINA Report Released Date/Time: Apr 20, 2024 12:07 PM Reporting Lab: [place] [address] [facility] [address] Performing Lab: [address] [address] GLUCOSE,BLOOD-poct (STL) 266 mg/dL H 72-Apr 20, 2024 05:26 AM [facility] GLUCOSE,BLOOD-poct (STL) BLOOD Specimen Type: BLOOD Comment: Test Performed by: [id number] Meter #: [id number] Ordering Provider: KIKI PINA Report Released Date/Time: Apr 20, 2024 05:38 AM Reporting Lab: [address] [address] Performing Lab: [address] [address] GLUCOSE,BLOOD-poct (STL) 157 mg/dL H Apr 19, 2024 08:45 PM [facility] GLUCOSE,BLOOD-poct (STL) BLOOD Specimen Type: BLOOD Comment: Test Performed by: [id number] Meter #: [id number] Ordering Provider: KIKI PINA Report Released Date/Time: Apr 19, 2024 10:10 PM Reporting Lab: [address] [address] Performing Lab: [address] [address] GLUCOSE,BLOOD-poct (STL) 232 mg/dL H Apr 19, 2024 05:13 PM [facility] GLUCOSE,BLOOD-poct (STL) BLOOD Specimen Type: BLOOD Comment: Test Performed by: [id number] Meter #: [id number] Ordering Provider: KIKI PINA Report Released Date/Time: Apr 19, 2024 05:24 PM Reporting Lab: [address] [address] Performing Lab: [address] [address] GLUCOSE,BLOOD-poct (STL) 176 mg/dL H 72-99 Apr 19, 2024 03:32 PM [facility] GLUCOSE,BLOOD-poct (STL) BLOOD Specimen Type: BLOOD Comment: Test Performed by: [id number] Meter #: [id number] Ordering Provider: LAUREN MOREL Report Released Date/Time: Apr 19, 2024 03:43 PM Reporting Lab: [facility] [address] [place] [address] Performing Lab: [facility] [address] [place] [address] GLUCOSE,BLOOD-poct (STL) 155 mg/dL H 72-99 Apr 19, 2024 02:56 PM [facility] MRSA SURVL NARES DNA NARES [...] Apr 19, 2024 04:55 PM Reporting Lab: [address] [address] Performing Lab: [address] [address] MRSA SURVL NARES DNA Negative Negative Apr 19, 2024 10:33 AM [facility] GLUCOSE,BLOOD-poct (L) BLOOD Specimen Type: BLOOD Comment: Test Performed by: [id number] Meter #: [id number] Ordering Provider: YONATHAN CORONEL Report Released Date/Time: Apr 19, 2024 10:50 AM Reporting Lab: [place] [address] [facility] [address] Performing Lab: [address] [address] GLUCOSE,BLOOD-poct (STL) 226 mg/dL H 72-99 Apr 08, 2024 03:28 PM [facility] PT/INR NEW (STL-MA) PLASMA Specimen Type: PLAS MA Comment: ~For Test: BASIC METABOLIC PANEL ~pre-op Ordering Provider: NOAH SANCHEZ Report Released Date/Time: Apr 02, 2024 12:39 PM Reporting Lab: [address] [address] Performing Lab: [address] [address] PROTIME 12.5 s 9.4-12.5 INR VALUE 1.1 {INR} Apr 08, 2024 03:28 PM [facility] BASIC METABOLIC PANEL PLASMA Specimen Type: PL ASMA Comment: ~For Test: BASIC METABOLIC PANEL ~pre-op Ordering Provider: NOAH SANCHEZ Report Released Date/Time: Apr 02, 2024 12:39 PM Reporting Lab: [address] [address] Performing Lab: [address] [address] CREATININE 1.59 mg/dL H 0.7-1.3 UREA NITROGEN 13.7 mg/dL 9.0-25.0 GLUCOSE 234 mg/dL H 72-99 SODIUM 139 meq/L 136-145 POTASSIUM 4.3 meq/L 3.5-5 CHLORIDE 104 meq/L 98-107 CARBON DIOXIDE 22 meq/L 22-31 CALCIUM 9.6 mg/dL 8.4-10.4 EGFR (CKD-EPI 2020) 50.6 >60 Apr 08, 2024 03:28 PM [facility] CBC BLOOD Specimen Type: BLOOD Comment: ~For Test: BASIC METABOLIC PANEL ~pre-op Ordering Provider: NOAH SANCHEZ Report Released Date/Time: Apr 02, 2024 12:39 PM Reporting Lab: [address] [address] Performing Lab: [address] [address] WBC 7.3 10*3/uL 3.6-11.2 RBC 5.23 10*6/uL [...] Source Apr 19, 2024 11:47 PM 9 [facility] Apr 19, 2024 08:37 PM 97.7 74 162/99 20 96 9 [facility] Apr 19, 2024 07:57 PM 4 [facility] Apr 19, 2024 06:32 PM 97.3 71 172/83 18 94 7 282.4 38 [facility] Apr 19, 2024 06:18 PM 6 [facility] Social History: Smoking Status (Most current) and Tobacco Use (All prior to encounter date) This section includes the most current, and the historical, smoking and tobacco- related health factors from the [place] facility where the Encounter took place. Current Smoking Status This section includes the most current smoking, or tobacco-related health factor, from the [place] facility where the Encounter took place. Date/Time Current Smoking Status Comment Facility May 26, 2000 01:36 PM CURRENT NON-TOBACC O USER-HX OF USE stop smoking 10yrs ago,started smoking at 14yrs,smoked 2packs a day [facility] Tobacco Use History This section includes a history of the smoking, or tobacco-related health factors, that were collected on or before the date of the Encounter. The data comes from the [place] facility where the Encounter took place. Date/Time Smoking Status/Tobacco Use Comment F acility Mar 07, 2000 12:35 PM CURRENT NON-TOBACC O USER-HX OF USE [facility] Advance Directives: All historical and [...] Sep 23, 2004 ADVANCE DIRECTIVE CJ RUDOLPH [facility] May 24, 2004 ADVANCE DIRECTIVE MITCH ZEE Kena [facility] May 24, 2000 ADVANCE DIRECTIVE MICHELE CENTENO Kena [facility] Nov 11, 1996 ADVANCE DIRECTIVE MAGGIE DRAKE [facility] December 08, 1995 ADVANCE DIRECTIVE KI SANTOYO [facility] Radiology Reports: +/- 30 days [...] the Encounter. The data comes from all [place] treatment facilities. Date/Time Radiology Report Provider Source Apr 08, 2024 03:15 PM CHEST X-RAY, 2 VIE WS: BETTY HAAS [id number] -1970 M Exm Date: APR 08, 2024@15:15 Req Phys: NOAH SANCHEZ Becca Loc: [place]-PRE-OP EVAL NURSING AM (Req Img Loc: [place]-MAIN RADIOLOGY SUITE Service: Unknown [facility], [address] [place] [address] (Case [id number] COMPLETE) CHEST X-RAY, 2 VIEWS (RAD Detailed) CPT:30441 Reason for Study: pre-op Clinical History: Report Status: Verified Date Reported: APR 08, 2024 Date Verified: APR 08, 2024 Senior Merchandiser E-Sig:/ES/Franklin Hartley MD. FACR. Report: History: pre-op. Comparison: Prior chest examination-03/24/2023. Technique: PA and lateral views. Findings: No pulmonary consolidation, pleural effusion, pneumothorax, cardiomegaly or pulmonary edema is seen. Impression: No acute cardiopulmonary disease is seen. Primary Interpreting Staff: Franklin Hartley MD. FACR, Neuroradiologist (Senior Merchandiser) /FRANKLIN KENDALL [facility] Pathology Reports: +/- 30 days of [...] the Encounter. The data comes from all [place] treatment facilities. Date/Time Pathology Report Provider Source [...] submitted entirely in cassette A1. MICROSCOPIC EXAM: (Parmjitannetteginette) Microscopic examination of the sections submitted from [...] Performing Laboratory: Surgical Pathology Report Performed By: [facility] [address] [place] [address] CLIA# [id number] [address] [address] $FTR - - - - - - - - - - - - - - - - - - - - - - - - - - - - - - - - - - - - - - - - (End of report) CHRISTY MALCOLM MD [facility] Date Apr 23, 2024 - - - - - - - - - - - - - - - - - - - - - - - - - - - - - - - - - - - - - - - - BETTY HAAS STANDARD FORM 515 ID:[id number] SEX:M :1970 AGE: 54 LOC:APFEE PCP: Yonathan Coronel NP /pamela MALCOLM Pathologist Signed: 04/23/2024 14:03 CHRISTY MALCOLM [facility] Apr 08, 2024 03:00 PM LR MICROBIOLOGY RE PORT: Accession [UID]: [facility] [id number] [[id number]] Received: Apr 08, 2024@15:27 Collection sample: URINE,CLEAN CATCH Collection date: Apr 08, 2024 15:00 Site/Specimen: URINE Provider: NOAH SANCHEZ Test(s) ordered: C&S URINE.................... . completed: Apr 09, 2024 22:40 * BACTERIOLOGY FINAL REPORT => Apr 09, 2024 22:47 TECH CODE: [id number] CULTURE RESULTS: STREP. AGALACTIAE, GRP. B - Quantity: >25,000 - <50,000 CFU/ML Comment: There will be no work up. Bacteriology Remark(s): -- RYAN 04/09/24 -- >25,000 - <50,000 CFU/ML S. AGAL - There will be no work up. <10,000 CFU/ML MIXED GRAM POSITIVE ORGANISM There will be no work up. =--=--=--=--=--=--=--=--= --=--=--=--=--=--=--=--=- -=--=--=--=--=--=--=--=-- =-- Performing Laboratory: Bacteriology Report Performed By: [facility]# [id number] [facility] [address] [place] [address] LUANA CINTRON [facility] Encounter Notes: All associated encounter notes This section contains the clinical notes associated to the Encounter. Date/Time Encounter Note(s) Provider Source Apr 19, 2024 03:34 PM ANESTHESIOLOGY FLOWSHEET: LOCAL TITLE: ANES INTRA-OP FLOWSHEET ST STANDARD TITLE: ANESTHESIOLOGY FLOWSHEET DATE OF NOTE: APR 19, 2024@15:34 ENTRY DATE: APR 19, 2024@15:34:11 AUTHOR: REINIER MORENO COSIGNER: URGENCY: STATUS: COMPLETED Patient: BETTY HAAS SSN: [id number] Date of Operation: 04/19/2024 Surgery Start Time: 04/19/2024 13:25 Surgery End Time: 04/19/2024 15:06 Anesthesia Care Start: 04/19/2024 12:45 Anesthesia Care End: 04/19/2024 15:33 Anesthesia Method: General 04/19/2024 13:32 (Primary), Airway: Endotracheal Intubation, Technique: Indirect Laryngoscopy, Level Of Consciousness: Sedated, Patient Position: Ramped, Preoxygenated, Induction Type: Intravenous, Breathing Circuit: [place] Adult, Ventilation by Mask: Easy to Ventilate [...] Implanted Penile prosthesis placement Diagnosis: erectile dysfunction Holding, Anesthesia, PACU Drugs: -------- Vancomycin: 2 g Phenylephrine gtt: 5694.942 mcg FentaNYL: 100 mcg Lidocaine: 100 mg Propofol: 200 mg Rocuronium: 50 mg Succinylcholine: 140 mg Phenylephrine: 200 mcg ePHEDrine: 30 mg Ondansetron: 4 mg Glycopyrrolate: 0.6 mg Ketamine: 50 mg ampicillin/subactam: 3 g DexmedeTOMidine: 44 mcg Acetaminophen IVPB: 1 g HYDROmorphone: 0.4 mg Sugammadex: 300 mg Holding, Anesthesia, PACU Fluids: --------- Ringers Lactated Solution: 1600 ml Estimated Blood Loss: 25 ml Urine Output: 1000 ml Resources: Aquacel foam placed on angelic prominence to protect skin during surgery Safety Belt Staff: --------- GARRY RINCON, SURGEON CHARLOTTE GENAO, ATT. SURGEON LAUREN MOREL, Holding Nurse ANJALI CANDELARIA ANES. SUPER. REINIER MORENO PRIN. ANES. BARNI, ANITA K, RELIEF DIAMOND SELECTOR VANNESSA CURRIE, Anesthesiologist Procedure Date: 04/19/2024 Procedure Start Time: Procedure End Time: /los/ REINIER MORENO CRNA PLATE PREPARER, Anesthesiology Signed: 04/19/2024 15:34 REINIER MORENO [facility]
--- OUTSIDE RECORDS SUMMARY | 2024-11-30 15:30 | XMS_ITS | Encounter Summary ---
Author Name [facility] Organization [facility] Address [address] [place] [address] Care Team Providers Care Home Office Claims Examiner Name Role Phone YONATHAN LINDSAY Primary Care Provider OMEGA Bethea Unavailable Unavailable Selected Encounter This section includes the information on record at [place] for the Encounter. Date/Time Encounter Type Encounter Description Reason Provider Source Nov 13, 2024 02:00 PM OFFICE O/P EST MOD 30 MIN ENDOCRINOLOGY ICD-10-CM E11.8 Type 2 diabetes mellitus with unspecified complications ALTHEA TORRES PH Yumi Encounter Template Text not used by [place] Assessments - Encounter Diagnoses This section includes the primary and secondary diagnoses documented for the Encounter. Date/Time Primary/Secondary Diagnosis Diagnosis Name Provider Source Nov 13, 2024 02:35 PM PRIMARY Type 2 diabetes mellitus with unspecified complications KASIE TORRES [facility] Nov 13, 2024 02:35 PM SECONDARY Hyperlipidemia, unspecified KASIE TORRES [facility] Nov 13, 2024 02:35 PM SECONDARY Vitamin D deficiency, unspecified KASIE TORRES [facility] Plan of Treatment: Future Appointments (+ 6 months) and Future Tests (+/- 45 days) The Plan of Treatment section includes future care activities for the patient from all [place] treatmentfacilities. This section includes future appointments and future orders which are active, pending or scheduled. Future Appointments This section includes appointments that were scheduled to occur 6 months from the date of the Encounter, up to a maximum of 20 appointments. The data comes from all [facility]. Appointment Date/Time Appointment Type Appointme nt Facility Name November 29, 2024 11:15 AM AMBULATORY - REHAB MEDICIN E [facility] December 16, 2024 02:30 PM AMBULATORY - MEDICINE [facility] December 17, 2024 02:00 PM AMBULATORY - PSYCHIATRY [facility] Jan 13, 2025 11:15 AM AMBULATORY - MEDICINE [facility] Feb 13, 2025 02:00 PM AMBULATORY - MEDICINE [facility] Mar 24, 2025 10:30 AM AMBULATORY - NONE [facility] Apr 11, 2025 11:00 AM AMBULATORY - MEDICINE [facility] Active, Pending, and Scheduled Orders This section includes a listing of several types of active, pending, and scheduled orders, including clinic medications orders, diagnostic test orders, procedure orders and consult orders; where the start date of the order is 45 days before the date of the Encounter or 45 days after the date of theEncounter. The data comes from all [facility]. Test Date/Time Test Type Test Details Facility Name Oct 07, 2024 11:59 AM Consult Order [facility] Cons Instructor Trainer [facility] Oct 07, 2024 11:59 AM Consult Order [facility] SPEC Cons Instructor Trainer [facility] Lab Results: +/- 30 days of the encounter This section includes the Chemistry and Hematology Lab Results on record with [place] for the patient. Radiology Reports and Pathology Reports are provided separately, in subsequent sections. Lab Results This section contains the Chemistry/Hematology Results that were resulted 30 days before or 30 daysafter the date of the Encounter. Date/Time Source Result Type Result - Unit Interpretation Reference Range Specimen Type Comment Nov 13, 2024 02:35 PM [facility] HGA1C BLOOD Specimen Type: BLOOD No comment entered. Ordering Provider: RAKEL TORRES Report Released Date/Time: Nov 13, 2024 02:28 PM Reporting Lab: [facility] [address] [facility] [address] Performing Lab: [facility] [address] [facility] [address] HGA1C 7.5 H 4.0-6.0 Nov 13, 2024 02:35 PM [facility] VITAMIN D, 25-HYDROXY SERUM Specimen Type: SE RUM No comment entered. Ordering Provider: RAKEL TORRES Report Released Date/Time: Nov 13, 2024 02:33 PM Reporting Lab: [place] [id number] [facility] [address] Performing Lab: [address] [address] VITAMIN D, 25-HYDROXY 35.4 ng/mL 30-96 Oct 25, 2024 11:20 AM [facility] PT/INR NEW (L-MA) PLASMA Specimen Type: PLAS MA No comment entered. Ordering Provider: NIKA SANCHEZ Report Released Date/Time: Oct 25, 2024 10:53 AM Reporting Lab: [place] [address] [address] Performing Lab: [place] [address] [facility] [address] PROTIME 12.5 s 9.4-12.5 INR VALUE 1.1 {INR} Oct 25, 2024 11:20 AM [facility] CONJ. BILIRUBIN PLASMA Specimen Type: PLASM A Comment: LDL calculation invalid when Triglyceride exceeds 250 mg/dl Ordering Provider: NIKA SANCHEZ Report Released Date/Time: Oct 25, 2024 10:53 AM Reporting Lab: [place] [address] [facility] [address] Performing Lab: [place] [address] [address] [address] CONJ. BILIRUBIN 0.2 mg/dL 0-0.5 Oct 25, 2024 11:20 AM [facility] ALPHA-FETOPROTEIN(STL-PB) PLASMA Specimen Type : PLASMA No comment entered. Ordering Provider: NIKA SANCHEZ Report Released Date/Time: Oct 25, 2024 10:53 AM Reporting Lab: [address] [address] Performing Lab: [address] [address] ALPHA-FETOPROTEIN(STL-PB) <2.00 ng/mL L 1- 8.78 Oct 25, 2024 11:20 AM [facility] LIPID PANEL (STL) PLASMA Specimen Type: PLAS MA Comment: LDL calculation invalid when Triglyceride exceeds 250 mg/dl Ordering Provider: NIKA SANCHEZ Report Released Date/Time: Oct 25, 2024 10:53 AM Reporting Lab: [address] [address] Performing Lab: [address] [address] CHOLESTEROL 158 mg/dL 0-200 TRIGLYCERIDE 401 mg/dL H 0-150 DIRECT LDL 73 mg/dL L >100 CALCULATED LDL comment mg/dL HDL(New) 38 mg/dL L >40 Oct 25, 2024 11:20 AM [facility] COMPREHENSIVE METABOLIC PANEL PLASMA Specimen Type: PLASMA Comment: LDL calculation invalid when Triglyceride exceeds 250 mg/dl Ordering Provider: NIKA SANCHEZ Report Released Date/Time: Oct 25, 2024 10:53 AM Reporting Lab: [address] [address] Performing Lab: [address] [address] CREATININE 0.70 mg/dL 0.7-1.3 UREA NITROGEN 13.9 [...] 108.1 >60 Oct 25, 2024 11:20 AM [facility] CBC BLOOD Specimen Type: BLOOD No comment entered. Ordering Provider: NIKA SANCHEZ Report Released Date/Time: Oct 25, 2024 10:53 AM Reporting Lab: [facility] [address] [address] Performing Lab: [facility] [address] [address] WBC 5.4 10*3/uL 3.6-11.2 RBC 5.06 10*6/uL [...] Height Weight Body Mass Index Source Nov 13, 2024 01:33 PM 126/74 [facility] Nov 13, 2024 01:33 PM 98 82 144/83 18 97 273.8 37 [facility] Social History: Smoking Status (Most current) and Tobacco Use (All prior to encounter date) This section includes the most current, and the historical, smoking and tobacco- related health factors from the [place] facility where the Encounter took place. Current Smoking Status This section includes the most current smoking, or tobacco-related health factor, from the [place] facility where the Encounter took place. Date/Time Current Smoking Status Comment Facility May 26, 2000 01:36 PM CURRENT NON-TOBACC O USER-HX OF USE stop smoking 10yrs ago,started smoking at 14yrs,smoked 2packs a day [facility] Tobacco Use History This section includes a history of the smoking, or tobacco-related health factors, that were collected on or before the date of the Encounter. The data comes from the [place] facility where the Encounter took place. Date/Time Smoking Status/Tobacco Use Comment F acility Mar 07, 2000 12:35 PM CURRENT NON-TOBACC O USER-HX OF USE [facility] Advance Directives: All historical and current Section Date Range: From patient's date of to the date document was created. This section includes ALL of a patient's completed or amended [place] Advance and Rescinded Directives. The entries below indicate that a directive exists for the patient, but an actual copy is not included with this document. The data comes from all [place] facilities. Date Advance Directives Provider Source Oct 21, 2022 FR[place]LIN KO [facility] Sep 23, 2004 ADVANCE DIRECTIVE CJ RUDOLPH [facility] May 24, 2004 ADVANCE DIRECTIVE MITCH ZEE IS [facility] May 24, 2000 ADVANCE DIRECTIVE MICHELE CENTENO IS [facility] Nov 11, 1996 ADVANCE DIRECTIVE MAGGIE DRAKE [facility] December 08, 1995 ADVANCE DIRECTIVE KI SANTOYO [facility] Radiology Reports: +/- 30 days of [...] the Encounter. The data comes from all [place] treatment facilities. Date/Time Radiology Report Provider Source Nov 13, 2024 12:14 PM US ABDOMEN COMPLET E W/BLOOD FLOW DOPPLER (STL): BETTY HAAS [id number] -[id number] M Exm Date: NOV 13, 2024@12:14 Req Phys: NIKA SANCHEZ Loc: [facility] (Req'g Lo Img Loc: [facility] [place] Service: [address] [address] (Case [id number] COMPLETE) US ABDOMEN LTD, SINGLE ORG OR CHRISTIN(US Detailed) CPT:59396 Reason for Study: HCC surveillance (Case [id number] COMPLETE) US BLOOD FLOW ABD/RENAL DOPPLER ((US Detailed) CPT:98781 Clinical History: Report Status: Verified Date Reported: NOV 13, 2024 Date Verified: NOV 13, 2024 Literacy Specialist E-Sig:/ES/RAFAEL WILDER Report: Case [id number], [id number]. US ABDOMEN LTD, SINGLE ORG OR QUADRANT, [...] Primary Interpreting Staff: RAFAEL WILDER, Diagnostic Radiologist (Literacy Specialist) Primary Interpreting Resident: CHRISTINA MALAGON, Vascular & Interventional Algologist /RAFAEL PALOMINO [facility] Encounter Notes: All associated encounter notes This section contains the clinical notes associated to the Encounter. Date/Time Encounter Note(s) Provider Source Nov 13, 2024 02:10 [facility] LOCAL TITLE: ENDOCRINOLOGY OUTPATIENT FOLLOW UP ST STANDARD TITLE: ENDOCRINOLOGY OUTPATIENT NOTE DATE OF NOTE: NOV 13, 2024@14:10 ENTRY DATE: NOV 13, 2024@14:10:41 AUTHOR: RAKEL TORRES EXP COSIGNER: URGENCY: STATUS: COMPLETED ENDOCRINOLOGY FOLLOW-UP NOTE == Date of visit: NOV 13, 2024 SUBJECTIVE Source(s) of history: Patient and/or other Reliability of source(s): Reliable CHIEF COMPLAINT: Mecca is a 54-year-old patient who is presenting for a follow-up for diabetes. INTERIM HX: Last plan included: - bren 3 reviewed: within range 49% with notable postprandial spikes after main meals of day (lunch and dinner), steady overnight readings - continue metformin ER 2g daily - continue jardiance 25mg daily - continue Ozempic 2mg weekly - start glipizide 5mg BID withmain meals of day [place] currently taking: - metfromin ER 2g daily - jardiance 25 mg daily - Ozempic 2mg weekly - glipizide 5mg once daily When were you diagnosed with DM: ~2009 What treatments have you tried before: - insulin (does not want to take for fear of needles) Have you ever been on insulin: yes, does not Do you ever skip your medication: no CGM summary over previous 2 weeks Time in range: - Very high (>250): 22% - High (181-250): 29% - Target range (70-180): 49% - Low (54-69): 0 - Very Low (<54):0 Time CGM in use: 48% GMI: 8.0% Any hypoglycemias/ hypoglycemia unawareness: no Are you on a continuous glucose monitor: no Any complications of diabetes: memory issues Do you check glucose before you drive: yes Do you have any medical alerts/ bracelets that say you are a diabetic: no Are you currently on lipid-lowering therapy: yes Eye exam: 08/09/2024 1. DMT2 without retinopathy OU - [...] mos for CEE/DFE. Monitor for visual changes. Foot exam: perfomred with PCP INTERIM MEDICAL HISTORY: denies any major medical changes since last visit. HISTORY: Medical History: 1) Abnormal results of liver function studies 2) Diverticulitis 3) Erectile dysfunction 4) Obesity 5) Chest pain 6) Sensory-neural hearing loss 7) Back pain (SNOMED CT 121143971) 8) Benign hypertension (SNOMED CT 38723681) 9) Convulsion 10) Male hypogonadism 11) Conversion disorder (SNOMED CT 964769536) 12) Testicular hypofunction 13) Osteoarthritis of right [...] post-traumatic stress disorder 31) Major depressive disorder Surgical History: Any surgeries since previous meeting Family history: Noncontributory Social History: - Marital status: - Home and environment: Lives with and daughter, relies entirely on others for health - Drugs/ alcohol: Denies - Suicide/ depression: Follows with mental health team ROS: Negative except as noted in the HPI Active Outpatient Medications (including Supplies): ACETAMINOPHEN 325MG TAB TAKE TWO TABLETS BY MOUTH FOUR ACTIVE TIMES A DAY CAUTION: DO NOT EXCEED 4000MG PER DAY ACETAMINOPHEN (APAP) FROM ALL MEDS. Indication: FOR PAIN BETAMETHASONE DIPROPIONATE 0.05% OINT APPLY LIGHTLY TO ACTIVE AFFECTED AREA(S) THREE TIMES A DAY (EXTERNAL USE ONLY) CETIRIZINE HCL 10MG TAB TAKE ONE TABLET BY MOUTH ONCE A ACTIVE DAY Indication: FOR ALLERGY SYMPTOMS CHOLECALCIF 50MCG (D3-2,000UNIT) TAB TAKE TWO TABLETS BY ACTIVE MOUTH ONCE A DAY FOR VITAMIN D DEFICIENCY. CPD-NALTREXONE 3MG (LOW DOSE) CAP TAKE 1 CAPSULE BY MOUTH ACTIVE (S) ONCE A DAY Indication: FOR FIBROMYALGIA CYANOCOBALAMIN 100MCG TAB TAKE ONE TABLET BY MOUTH ONCE A ACTIVE (S) DAY FOR B12 SUPPLEMENTATION CYCLOBENZAPRINE HCL 10MG TAB TAKE ONE TABLET BY MOUTH ACTIVE THREE TIMES A DAY NEEDED MAY CAUSE DROWSINESS. DO NOT DRINK ALCOHOL WHILE TAKING THIS MEDICATION. Indication: FOR MUSCLE SPASM DEXTROSE 24GM/31GM SQUEEZE TUBE TAKE 1 TUBE BY MOUTH ONCE ACTIVE A DAY NEEDED REPEAT DOSE IF HYPOGLYCEMIA CONTINUES 15 MINUTES AFTER THE FIRST DOSE. Indication: FOR LOW BLOOD SUGAR DULOXETINE HCL 60MG EC CAP TAKE ONE CAPSULE BY MOUTH ONCE ACTIVE (S) A DAY DO NOT ABRUPTLY DISCONTINUE MEDICATION. Indication: FOR PTSD/MOOD/ANXIETY/PAIN EMPAGLIFLOZIN 25MG TAB TAKE ONE TABLET BY MOUTH ONCE A DAY ACTIVE EZETIMIBE 10MG TAB TAKE ONE TABLET BY MOUTH ONCE A DAY TO ACTIVE LOWER CHOLESTEROL GLIPIZIDE 5MG TAB TAKE ONE TABLET BY MOUTH TWO TIMES A DAY ACTIVE BEFORE MEALS TAKE 30 MINUTES BEFORE EATING. Indication: FOR DIABETES GLUCOSE SENSOR FREESTYLE BREN 3 PLUS USE SENSOR EVERY ACTIVE 15 DAYS Indication: FOR BLOOD GLUCOSE MONITORING HYDROXYZINE HCL 25MG TAB TAKE ONE TABLET BY MOUTH THREE ACTIVE (S) TIMES A DAY NEEDED *MAY CAUSE DROWSINESS* Indication: FOR ANXIETY LIDOCAINE 5% PATCH APPLY 1 PATCH TO SKIN SITE NIGHTLY ACTIVE NEEDED . MAY USE 1-3 PATCHES. PATCHES MAY BE CUT TO FIT ONTO FEET. APPLY PATCH AND PRESS FIRMLY FOR 10-15 SECONDS. KEEP ON FOR 12 HOURS THEN REMOVE PATCH FOR 12 HOURS. Indication: FOR PAIN METFORMIN HCL 500MG 24HR SA TAB TAKE FOUR TABLETS BY MOUTH ACTIVE ONCE A DAY FOR BLOOD SUGAR CONTROL. TAKE WITH FOOD. AVOID ALCOHOL. DISCONTINUE BEFORE GETTING XRAY DYE. OLODATEROL/TIOTROP 2.5MCG/ACTUAT 60D INH INHALE 2 PUFFS BY ACTIVE ORAL INHALATION ONCE A DAY ADMINISTER AT SAME TIME EACH DAY Indication: FOR COPD PRAZOSIN HCL 2MG CAP TAKE THREE CAPSULES BY MOUTH AT ACTIVE (S) BEDTIME MAY CAUSE DIZZINESS OR DROWSINESS. Indication: FOR NIGHTMARES PREGABALIN 300MG ORAL CAP TAKE ONE CAPSULE BY MOUTH TWICE ACTIVE A DAY *MAY CAUSE DROWSINESS* Indication: FOR FIBROMYALGIA SALONPAS PAIN RELIEF PATCH APPLY 1 PATCH TO SKIN SITE ACTIVE EVERY EIGHT(8) HOURS NEEDED (EXTERNAL USE ONLY) Indication: FOR PAIN SEMAGLUTIDE 2MG/0.75ML INJ PEN 3ML INJECT 2MG UNDER THE ACTIVE (S) SKIN EVERY WEEK Indication: FOR DIABETES SINUS RINSE NEILMED PKT USE 1 PACKET NOSTRIL(S) ONCE A DAY ACTIVE Indication: FOR NASAL CONGESTION SODIUM CHLORIDE 0.65% SOLN NASAL SPRAY USE 1 SPRAY INTO ACTIVE NOSTRIL(S) EVERY 4 HOURS NEEDED Indication: FOR NASAL CONGESTION TRAZODONE HCL 100MG TAB TAKE TWO TABLETS BY MOUTH AT ACTIVE (S) BEDTIME Indication: FOR DEPRESSION Non-VA TRIAMCINOLONE ACETONIDE 0.025% CREAM SPARINGLY TO ACTIVE AFFECTED AREA(S) TWICE A DAY Indication: FOR ATOPIC DERMATITIS 25 Total Medications I have reviewed current medications w/ at this visit. Efficacy and side effects of the medications were reviewed. [place]cca denies questions, concerns, or problems with medications unless addressed in notes above. Allergies/ Intolerances: NIACIN, SIMVASTATIN, COREG 25MG TABLET, PRAVASTATIN, SHRIMP, ATORVASTATIN ROSUVASTATIN, LOVASTATIN, PITAVASTATIN OBJECTIVE --------- Records reviewed from consulting providers Vitals: Temperature:98 F [36.7 C] (11/13/2024 13:33) HR: 82 (11/13/2024 13:33) BP: Measurement DT BP 11/13/2024 13:33 126/74 11/13/2024 13:33 144/83 11/01/2024 15:48 126/79 Weight: 273.8 lb [124.19 kg] (11/13/2024 13:33) Patient Weight History - Last Four 1. 273.8 lbs. / 124.2 kg. on NOV 13, 2024@13:33:23 2. 277.9 lbs. / 126.1 kg. on NOV 01, 2024@15:48:17 3. 276.0 lbs. / 125.2 kg. on OCT 25, 2024@10:32:09 4. 277.8 lbs. / 126.0 kg. on SEP 12, 2024@14:35:33 BMI: 37.2 PHYSICAL EXAM: General: no distress, well-nourished, oriented [...] mood within normal limits Labs: A1C: HGA1C 6.8 H % 12/14/2023 11:57 HGA1C 8.0 H % 09/08/2023 13:43 HGA1C 7.7 H % 05/15/2023 15:37 HGA1C 7.2 H % 01/10/2023 14:51 HGA1C 6.9 H % 04/25/2022 14:43 CBC: WBC 5.4 10*3/uL 10/25/2024 11:20 RBC [...] 11:20 BASOPHILS, ABSOLUTE 0.04 10*3/uL 10/25/2024 11:20 CMP: Collection DT Specimen Test Name Result Units Ref Range 10/25/2024 11:20 PLASMA CREATININE 0.70 mg/dL 0.7 - 1.3 10/25/2024 11:20 PLASMA UREA NITROGEN 13.9 mg/dL 9.0 - 25.0 10/25/2024 11:20 PLASMA GLUCOSE 352 H mg/dL 72 - 99 10/25/2024 11:20 PLASMA SODIUM 133 L mEq/L 136 - 145 10/25/2024 11:20 PLASMA POTASSIUM 3.7 mEq/L 3.5 - 5 10/25/2024 11:20 PLASMA CHLORIDE 102 mEq/L 98 - 107 10/25/2024 11:20 PLASMA CARBON DIOXIDE 18 L mEq/L 22 - 31 10/25/2024 11:20 PLASMA CALCIUM 8.7 mg/dL 8.4 - 10.4 10/25/2024 11:20 PLASMA PROTEIN 7.7 g/dL 6 - 8.6 10/25/2024 11:20 PLASMA ALBUMIN 4.0 g/dL 3.4 - 5 10/25/2024 11:20 PLASMA TOTAL BILIRUBIN 0.5 mg/dL 0.2 - 1.2 10/25/2024 11:20 PLASMA ALKALINE PHOSPHAT 121 U/L 40 - 150 10/25/2024 11:20 PLASMA AST/SGOT 35 H U/L 5 - 34 10/25/2024 11:20 PLASMA ALT/SGPT 38 U/L 8 - 40 10/25/2024 11:20 PLASMA EGFR (CKD-EPI 202 108.1 Ref: >=60 Comment: LDL calculation invalid when Triglyceride exceeds 250 mg/dl 12/14/2023 11:57 BLOOD HGA1C 6.8 H % 4.0 - 6.0 12/14/2023 11:58 SERUM B12 423 pg/mL 213 - 816 BMP: BMP PC STL Collection DT Specimen Test Name Result Units Ref Range 10/25/2024 11:20 PLASMA CREATININE 0.70 mg/dL 0.7 - 1.3 10/25/2024 11:20 PLASMA UREA NITROGEN 13.9 mg/dL 9.0 - 25.0 10/25/2024 11:20 PLASMA GLUCOSE 352 H mg/dL 72 - 99 10/25/2024 11:20 PLASMA SODIUM 133 L mEq/L 136 - 145 10/25/2024 11:20 PLASMA POTASSIUM 3.7 mEq/L 3.5 - 5 10/25/2024 11:20 PLASMA CHLORIDE 102 mEq/L 98 - 107 10/25/2024 11:20 PLASMA CARBON DIOXIDE 18 L mEq/L 22 - 31 10/25/2024 11:20 PLASMA CALCIUM 8.7 mg/dL 8.4 - 10.4 Comment: LDL calculation invalid when Triglyceride exceeds 250 mg/dl Lipid: TRIGLYCERIDE 401 H mg/dL 10/25/2024 11:20 CHOLESTEROL 158 mg/dL 10/25/2024 11:20 HDL(New) 38 L mg/dL 10/25/2024 11:20 DIRECT LDL 73 L mg/dL 10/25/2024 11:20 CALCULATED LDL comment mg/dL 10/25/2024 11:20 TSH: No TSH (1YR) EO data found Microalb/creat: CREATuF: 48.2 (09/12/23 21:20) M/CREAT: 10 (05/15/23 15:42) MICRAL: 6 (05/15/23 15:42) No MICRAL/CREAT RATIO (STL) data found Imaging results: ASSESSMENT/PLAN 1. T2DM CGM summary over previous 2 weeks Time in range: - Very high (>250): 22% - High (181-250): 29% - Target range (70-180): 49% - Low (54-69): 0 - Very Low (<54):0 Time CGM in use: 48% GMI: 8.0% -Complications: severe memmory issues Plan: -Had to call , she manages all medications for -Stop metformin and Jardiance, start Synjardy XR 12.11/999, 2 tabs daily in the morning/since he wakes up -Continue Ozempic 2 mg weekly -Increase glipizide to 10 mg once daily -Return to clinic in 3 months -Depending on A1c today and at next appointment, can consider starting pioglitazone or potentially looking into justifying Mounjaro Glucose results reviewed Foot Exam with primary care Eye appointment up-to-date without retinopathy Labs to be done today -A1c Reviewed goal A1c - (<7%, FBS 80-130, 2 hr PP <180per [place] guidelines) Dx of DM2, role of insulin resistance & relative insulin deficiency reviewed. Medications & side effects reviewed. Reveiwed mcc complications of Diabetes- Including, but not limited to the ocular, renal, nervous, cardiovascular, and GI systems Stressed need for regular physical activity at least 30 minutes 4-5 days/week reviewed. Goal sugar, LDL, A1C, BP reviewed. 2. Hyperlipidemia - Unable to tolerate statins -Most recent LDL in September 2024 = 73 -Continue Zetia 10 mg daily 3. Vitamin D deficiency -Check labs again today -Continue daily supplement Reviewed benefits of Vitamin D replacement including skeletal benefits, improvement in bone density, fracture prevention, increased immune and cardiovascular function, and improved musculoskeleal benefits. Preventive measure for hyperparathyroidism, low calcium uptake, deminieralization of bones (osteopenia/ osteoporosis), and increased risk of fracture Education about next steps reviewed with patient. All additional questions answered during visit today Time spent with patient/caregiver: I personally spent [...] placed, patient to schedule before departing from [facility] today Pt verbalized understanding and had no further questions during today's meeting Patient case discussed with Endocrine staff /los/ ANGELA Johnston, MSN, RN Nurse Practitioner Signed: 11/13/2024 14:35 RAKEL TORRES [facility]
--- OUTSIDE RECORDS SUMMARY | 2024-11-30 15:30 | XMS_ITS | Encounter Summary ---
Author Name [facility] Address [address] [place] [address] Care Team Providers Care Spiral Tube Winder Helper Name Role Phone YONATHAN LINDSAY Primary Care Provider OMEGA Bethea Unavailable Unavailable Selected Encounter This section includes the information on record at OR for the Encounter. Date/Time Encounter Type Encounter Description Reason Pro vider Source Oct 08, 2024 11:52 AM Outpatient Encounter [facility] CONSULT IHE Encounter Template Text not used by OR Plan of Treatment: Future Appointments (+ 6 months) and Future Tests (+/- 45 days) The Plan of Treatment section includes future care activities for the patient from all OR treatmentfacilities. This section includes future appointments and future orders which are active, pending or scheduled. Future Appointments This section includes appointments that were scheduled to occur 6 months from the date of the Encounter, up to a maximum of 20 appointments. The data comes from all OR treatment facilities. Appointment Date/Time Appointment Type Appointme nt Facility Name Oct 10, 2024 02:00 PM AMBULATORY - PSYCHIATRY [facility] Oct 24, 2024 11:00 AM AMBULATORY - REHAB [facility]IC[facility] Oct 25, 2024 10:30 AM AMBULATORY - MEDICINE [facility] Nov 01, 2024 01:00 PM AMBULATORY - SURGERY [facility] Nov 13, 2024 12:00 PM AMBULATORY - NONE [facility] Nov 13, 2024 02:00 PM AMBULATORY - MEDICINE [facility] November 29, 2024 11:15 AM AMBULATORY - REHAB [facility]ICIN [facility] December 16, 2024 02:30 PM AMBULATORY - MEDICINE [facility] December 17, 2024 02:00 PM AMBULATORY - PSYCHIATRY [facility] Jan 13, 2025 11:15 AM AMBULATORY - MEDICINE [facility] Feb 13, 2025 02:00 PM AMBULATORY - MEDICINE [facility] Mar 24, 2025 10:30 AM AMBULATORY - NONE [facility] Active, Pending, and Scheduled Orders This section includes a listing of several types of active, pending, and scheduled orders, including clinic medications orders, diagnostic test orders, procedure orders and consult orders; where the start date of the order is 45 days before the date of the Encounter or 45 days after the date of theEncounter. The data comes from all [place] treatment facilities. Test Date/Time Test Type Test Details Facility Name Oct 07, 2024 11:59 AM Consult Order [facility] DENTAL SPEC Cons Phlebotomy Technologist's Choice [facility] Oct 07, 2024 11:59 AM Consult Order [facility] DENTAL SPEC Cons Phlebotomy Technologist's Choice [facility] Lab Results: +/- 30 [...] Type Comment Oct 25, 2024 11:20 AM [facility] PT/INR NEW (STL-MA) PLASMA Specimen Type: PLASMA No comment entered. Ordering Provider: NIKA SANCHEZ Report Released Date/Time: Oct 25, 2024 10:53 AM Reporting Lab: [place] [address] [address] [facility] [address] Performing Lab: [facility] [place] [address] [address] PROTIME 12.5 s 9.4-12.5 INR VALUE 1.1 {INR} Oct 25, 2024 11:20 AM [facility] CONJ. BILIRUBIN PLASMA Specimen Type: PLASM A Comment: LDL calculation invalid when Triglyceride exceeds 250 mg/dl Ordering Provider: NIKA SANCHEZ Report Released Date/Time: Oct 25, 2024 10:53 AM Reporting Lab: [address] [address] Performing Lab: [address] [address] CONJ. BILIRUBIN 0.2 mg/dL 0-0.5 Oct 25, 2024 11:20 AM [facility] ALPHA-FETOPROTEIN(STL-PB) PLASMA Specimen Type : PLASMA No comment entered. Ordering Provider: NIKA SANCHEZ Report Released Date/Time: Oct 25, 2024 10:53 AM Reporting Lab: [address] [address] Performing Lab: [address] [address] ALPHA-FETOPROTEIN(STL-PB) <2.00 ng/mL L 1- 8.78 Oct 25, 2024 11:20 AM [facility] LIPID PANEL (STL) PLASMA Specimen Type: PLASM A Comment: LDL calculation invalid when Triglyceride exceeds 250 mg/dl Ordering Provider: NIKA SANCHEZ Report Released Date/Time: Oct 25, 2024 10:53 AM Reporting Lab: [address] [address] Performing Lab: [address] [address] CHOLESTEROL 158 mg/dL 0-200 TRIGLYCERIDE 401 mg/dL H 0-150 DIRECT LDL 73 mg/dL L >100 CALCULATED LDL comment mg/dL HDL(New) 38 mg/dL L >40 Oct 25, 2024 11:20 AM [facility] COMPREHENSIVE METABOLIC PANEL PLASMA Specimen Type: PLASMA Comment: LDL calculation invalid when Triglyceride exceeds 250 mg/dl Ordering Provider: NIKA SANCHEZ Report Released Date/Time: Oct 25, 2024 10:53 AM Reporting Lab: [address] [address] Performing Lab: [address] [address] CREATININE 0.70 mg/dL 0.7-1.3 UREA NITROGEN 13.9 [...] 108.1 >60 Oct 25, 2024 11:20 AM [facility] CBC BLOOD Specimen Type: BLOOD No comment entered. Ordering Provider: NIKA SANCHEZ Report Released Date/Time: Oct 25, 2024 10:53 AM Reporting Lab: [address] [address] Performing Lab: [address] [address] WBC 5.4 10*3/uL 3.6-11.2 RBC 5.06 10*6/uL [...] and tobacco- related health factors from the OR facility where the Encounter took place. Current Smoking Status This section includes the most current smoking, or tobacco-related health factor, from the OR facility where the Encounter took place. Date/Time Current Smoking Status Comment Facility May 26, 2000 01:36 PM CURRENT NON-TOBACC O USER-HX OF USE stop smoking 10yrs ago,started smoking at 14yrs,smoked 2packs a day [facility] Tobacco Use History This section includes a history of the smoking, or tobacco-related health factors, that were collected on or before the date of the Encounter. The data comes from the OR facility where the Encounter took place. Date/Time Smoking Status/Tobacco Use Comment F acility Mar 07, 2000 12:35 PM CURRENT NON-TOBACC O USER-HX OF USE [facility] Advance Directives: All historical and current Section Date Range: From patient's date of to the date document was created. This section includes ALL of a patient's completed or amended OR Advance and Rescinded Directives. The entries below indicate that a directive exists for the patient, but an actual copy is not included with this document. The data comes from all [facility]. Date Advance Directives Provider Source Oct 21, 2022 [place] KO [facility] Sep 23, 2004 ADVANCE DIRECTIVE CJ RUDOLPH [facility] May 24, 2004 ADVANCE DIRECTIVE MITCH ZEE [facility] May 24, 2000 ADVANCE DIRECTIVE MICHELE CENTENO [facility] Nov 11, 1996 ADVANCE DIRECTIVE MAGGIE DRAKE [facility] December 08, 1995 ADVANCE DIRECTIVE NATANAELKI [facility] Encounter Notes: All associated encounter notes This section contains the clinical notes associated to the Encounter. Date/Time Encounter Note(s) Provider Source Oct 08, 2024 11:52 AM LETTERS: LOCAL TITLE: COMMUNITY CARE-REQUEST FOR SERVICES (RFS) LETTER ST STANDARD TITLE: LETTERS DATE OF NOTE: OCT 08, 2024@11:52 ENTRY DATE: OCT 08, 2024@11:52:19 AUTHOR: LOAN GAGE EXP COSIGNER: URGENCY: STATUS: COMPLETED [facility] [address] [place] [address] [facility] [address] [place] [address] Dear Provider, Information: Patient Name: BETTY HAAS Date of : Mar [facility] Service has received the request for D4341 Periodontal Scaling/Root Planting-4+/Quad UL D4341 Periodontal Scaling/Root Planting-4+/Quad LL D4341 Periodontal Scaling/Root Planting-4+/Quad UR D4341 Periodontal Scaling/Root Planting-4+/Quad LR D4910 Periodontal maintenance D7210 Surgical Ext (Flap+Sectioning &/or Bone #32 [id number] DEXAMETHASONE 4MG IV D9239 IV Sed/Anal-First 15 Min D9243 IV Sed/Anal- Ea Add'l 15 MIN Iner D9243 IV Sed/Anal- Ea Add'l 15 MIN Iner D9243 IV Sed/Anal- Ea Add l 15 MIN Iner D9243 IV Sed/Anal- Ea Add'l 15 MIN Iner D9243 IV Sed/Anal- Ea Add'l 15 MIN Iner D9243 IV Sed/Anal- Ea Add'l 15 MIN Iner D9243 IV Sed/Anal- Ea Add'l 15 MIN Iner D9613 (EXPAREL) LONG ACTION ANES EACH S #32 [id number] Evaluation for Mod/Deep Sedation from you for services that were not originally authorized in the [facility] Administration for this . Upon review, the following determination has been made: Service has been approved. (Authorization #[id number]) Should you have questions, please contact us at [phone] to speak with a patient human services program specialist. As a reminder, if applicable, return medical records within 30 days for routine services. Sincerely, LOAN GAGE [facility] LOAN RONQUILLO [facility]
--- OUTSIDE RECORDS SUMMARY | 2024-11-30 15:30 | XMS_ITS | Encounter Summary ---
Author Name [facility] Organization [facility] Address [address] [place] [address] Care Team Providers Care Division Sergeant Name Role Phone YONATHAN LINDSAY Primary Care Provider OMEGA Bethea Unavailable Unavailable Selected Encounter This section includes the information on record at [place] for the Encounter. Date/Time Encounter Type Encounter Description Reason Provider Source Oct 10, 2024 02:00 PM PSYTX W PT W E/M [facility] - IND ICD-10-CM F43.12 Post-traumatic stress disorder, chronic RACHEL LEACH [facility] Encounter Template Text not used by [place] Assessments - Encounter Diagnoses This section includes the primary and secondary diagnoses documented for the Encounter. Date/Time Primary/Secondary Diagnosis Diagnosis Name Provider Source Oct 10, 2024 02:29 PM PRIMARY Post-traumatic stress disorder, chronic RACHEL LEACH [facility] Oct 10, 2024 02:29 PM SECONDARY Conversion disorder with seizures or convulsions RACHEL LEACH [facility] Oct 10, 2024 02:29 PM SECONDARY Major depressive disorder, recurrent, unspecified RACHEL LEACH [facility] Plan of Treatment: Future Appointments (+ 6 months) and Future Tests (+/- 45 days) The Plan of Treatment section includes future care activities for the patient from all [place] [facility]. This section includes future appointments and future orders which are active, pending or scheduled. Future Appointments This section includes appointments that were scheduled to occur 6 months from the date of the Encounter, up to a maximum of 20 appointments. The data comes from all [facility]. Appointment Date/Time Appointment Type Appointme nt Facility Name Oct 24, 2024 11:00 AM AMBULATORY - REHAB MEDICIN E [facility] Oct 25, 2024 10:30 AM AMBULATORY - MEDICINE [facility] Nov 01, 2024 01:00 PM AMBULATORY - SURGERY [facility] Nov 13, 2024 12:00 PM AMBULATORY - NONE [facility] Nov 13, 2024 02:00 PM AMBULATORY - MEDICINE [facility] November 29, 2024 11:15 AM AMBULATORY - REHAB MEDICIN E [facility] December 16, 2024 02:30 PM AMBULATORY - MEDICINE [facility] December 17, 2024 02:00 PM AMBULATORY - PSYCHIATRY [facility] Jan 13, 2025 11:15 AM AMBULATORY - MEDICINE [facility] Feb 13, 2025 02:00 PM AMBULATORY - MEDICINE [facility] Mar 24, 2025 10:30 AM AMBULATORY - NONE [facility] Apr 11, 2025 11:00 AM AMBULATORY - MEDICINE [facility] Active, Pending, and Scheduled Orders This section includes a listing of several types of active, pending, and scheduled orders, including clinic medications orders, diagnostic test orders, procedure orders and consult orders; where the start date of the order is 45 days before the date of the Encounter or 45 days after the date of theEncounter. The data comes from all [facility]. Test Date/Time Test Type Test Details Facility Name Oct 07, 2024 11:59 AM Consult Order [facility] Cons District Sales Coordinator's Choice [facility] Oct 07, 2024 11:59 AM Consult Order [facility] District Sales Coordinator's Choice [facility] Lab Results: +/- 30 days of [...] Type Comment Oct 25, 2024 11:[address] [facility] PT/INR NEW (STL-MA) PLASMA Specimen Type: PLASMA No comment entered. Ordering Provider: NIKA SANCHEZ Report Released Date/Time: Oct 25, 2024 10:53 AM Reporting Lab: [address] [phone] Performing Lab: [address] [address] PROTIME 12.5 s 9.4-12.5 INR VALUE 1.1 {INR} Oct 25, 2024 11:[address] [facility] CONJ. BILIRUBIN PLASMA Specimen Type: PLASM A Comment: LDL calculation invalid when Triglyceride exceeds 250 mg/dl Ordering Provider: NIKA SANCHEZ Report Released Date/Time: Oct 25, 2024 10:53 AM Reporting Lab: [address] [address] Performing Lab: [address] [address] CONJ. BILIRUBIN 0.2 mg/dL 0-0.5 Oct 25, 2024 11:[address] [facility] ALPHA-FETOPROTEIN(STL-PB) PLASMA Specimen Type : PLASMA No comment entered. Ordering Provider: NIKA SANCHEZ Report Released Date/Time: Oct 25, 2024 10:53 AM Reporting Lab: [address] [address] Performing Lab: [address] [address] ALPHA-FETOPROTEIN(STL-PB) <2.00 ng/mL L 1- 8.78 Oct 25, 2024 11:[address] [facility] LIPID PANEL (STL) PLASMA Specimen Type: PLASM A Comment: LDL calculation invalid when Triglyceride exceeds 250 mg/dl Ordering Provider: NIKA SANCHEZ Report Released Date/Time: Oct 25, 2024 10:53 AM Reporting Lab: [address] [address] Performing Lab: [address] [address] CHOLESTEROL 158 mg/dL 0-200 TRIGLYCERIDE 401 mg/dL H 0-150 DIRECT LDL 73 mg/dL L >100 CALCULATED LDL comment mg/dL HDL(New) 38 mg/dL L >40 Oct 25, 2024 11:[address] [facility] COMPREHENSIVE METABOLIC PANEL PLASMA Specimen Type: PLASMA Comment: LDL calculation invalid when Triglyceride exceeds 250 mg/dl Ordering Provider: NIKA SANCHEZ Report Released Date/Time: Oct 25, 2024 10:53 AM Reporting Lab: [address] [address] Performing Lab: [address] [address] CREATININE 0.70 mg/dL 0.7-1.3 UREA NITROGEN 13.9 [...] 108.1 >60 Oct 25, 2024 11:20 AM [facility] CBC BLOOD Specimen Type: BLOOD No comment entered. Ordering Provider: NIKA SANCHEZ Report Released Date/Time: Oct 25, 2024 10:53 AM Reporting Lab: [address] [place] [address] Performing Lab: [facility] [address] [place] [address] WBC 5.4 10*3/uL 3.6-11.2 RBC 5.06 10*6/uL [...] VA-TOBACCO USE BREE E DAYS OTHER TYPE [facility] Tobacco Use History This section includes a history of the smoking, or tobacco-related health factors, that were collected on or before the date of the Encounter. The data comes from the [place] facility where the Encounter took place. Date/Time Smoking Status/Tobacco Use Comment F acility Jul 18, 2024 02:00 PM VA-TOBACCO SCREEN FOLLOW-UP [facility] Jul 18, 2024 02:00 PM VA-TOBACCO USE ADVICE [facility] Jul 18, 2024 02:00 PM VA-TOBACCO USE SURFACE BOSS NO [facility] Jul 18, 2024 02:00 PM VA-TOBACCO USE MED NO [facility] Jul 18, 2024 02:00 PM VA-TOBACCO USE BREE E DAYS OTHER TYPE [facility] Jul 18, 2024 02:00 PM VA-TOBACCO USE BREE E DAYS SMOKELESS [facility] Jul 04, 2023 01:09 PM VA-TOBACCO USE > 1 5 LESS THAN 30 YEARS [facility] Jul 04, 2023 01:09 PM VA-TOBACCO USE ADVICE [facility] Jul 04, 2023 01:09 PM VA-TOBACCO USE SURFACE BOSS NO [facility] Jul 04, 2023 01:09 PM VA-TOBACCO USE MED NO [facility] Jul 04, 2023 01:09 PM VA-TOBACCO USE WI 30 MIN OF WAKEUP [facility] Jul 04, 2023 01:09 PM VA-TOBACCO USER EVERY DAY [facility] Jul 28, 2022 01:00 PM VA-TOBACCO FORMER USER [facility] Jul 28, 2022 01:00 PM VA-TOBACCO QUIT 15 YRS OR MORE [facility] Jul 13, 2021 01:00 PM VA-TOBACCO DOESNT USE WI 30 MIN WAKEUP [facility] Jul 13, 2021 01:00 PM VA-TOBACCO USE 30 YEARS OR MORE [facility] Jul 13, 2021 01:00 PM VA-TOBACCO USE ADVICE [facility] Jul 13, 2021 01:00 PM VA-TOBACCO USE SURFACE BOSS NO [facility] Jul 13, 2021 01:00 PM VA-TOBACCO USE MED NO [facility] Jul 13, 2021 01:00 PM VA-TOBACCO USER SOME DAYS [facility] May 20, 2020 03:30 PM VA-TOBACCO DOESNT USE WI 30 MIN WAKEUP [facility] May 20, 2020 03:30 PM VA-TOBACCO USE > 1 5 LESS THAN 30 YEARS [facility] May 20, 2020 03:30 PM VA-TOBACCO USE ADVICE [facility] May 20, 2020 03:30 PM VA-TOBACCO USE SURFACE BOSS NO [facility] May 20, 2020 03:30 PM VA-TOBACCO USE MED NO [facility] May 20, 2020 03:30 PM VA-TOBACCO USER SOME DAYS [facility] Jun 26, 2018 11:30 AM VA-TOBACCO FORMER USER [facility] Jun 26, 2018 11:30 AM VA-TOBACCO QUIT 15 YRS OR MORE [facility] Mar 02, 2017 07:35 AM QUIT TOBACCO >7 YEARS AGO [facility] May 25, 2016 05:48 AM CURRENT TOBACCO USER [facility] May 25, 2016 05:48 AM TOBACCO MEDS OFFER ED BUT DECLINED [facility] Jun 23, 2015 02:29 PM QUIT TOBACCO >7 YEARS AGO [facility] Sep 12, 2014 06:15 AM CURRENT TOBACCO USER [facility] Sep 12, 2014 06:15 AM QUIT TOBACCO >7 YEARS AGO [facility] Sep 12, 2014 06:15 AM TOBACCO MEDS OFFER ED BUT DECLINED [facility] Jun 25, 2013 02:47 PM QUIT TOBACCO >7 YEARS AGO [facility] May 04, 2010 12:36 PM LIFETIME NON-USER OF TOBACCO [facility] Jul 30, 2009 11:12 AM CURRENT TOBACCO USER [facility] Mar 20, 2008 01:00 PM CURRENT TOBACCO USER [facility] Mar 20, 2008 01:[address] OP SMOKING CLINIC [facility] Mar 20, 2008 01:00 PM TOBACCO OFFERRED P T MEDS (PROVIDER) [facility] Mar 06, 2007 10:38 AM QUIT TOBACCO >7 YEARS AGO [facility] May 09, 2006 09:29 AM CURRENT TOBACCO USER [facility] Aug 27, 2004 10:41 AM CURRENT TOBACCO USER [facility] Aug 27, 2004 10:41 AM SMOKER <10 [facility] Advance Directives: All historical and current Section Date Range: From patient's date of to the date document was created. This section includes ALL of a patient's completed or amended [place] Advance and Rescinded Directives. The entries below indicate that a directive exists for the patient, but an actual copy is not included with this document. The data comes from all [place] facilities. Date Advance Directives Provider Source Oct 21, 2022 [place] KO [facility] Sep 23, 2004 ADVANCE DIRECTIVE CJ RUDOLPH [facility] May 24, 2004 ADVANCE DIRECTIVE MITCH ZEE Kena [facility] May 24, 2000 ADVANCE DIRECTIVE MICHELE CENTENO [facility] Nov 11, 1996 ADVANCE DIRECTIVE MAGGIE DRAKE [facility] December 08, 1995 ADVANCE DIRECTIVE KI SANTOYO [facility] Encounter Notes: All associated encounter notes This section contains the clinical notes associated to the Encounter. Date/Time Encounter Note(s) Provider Source Oct 10, 2024 02:29 PM ACCOUNTING OF DISCLOSURES NOTE: LOCAL TITLE: [facility]ITORING PRO[facility] STANDARD TITLE: ACCOUNTING OF DISCLOSURES NOTE DATE OF NOTE: OCT 10, 2024@14:29:46 ENTRY DATE: OCT 10, 2024@14:29:46 AUTHOR: RACHEL LEACH EXP COSIGNER: URGENCY: STATUS: COMPLETED This PDMP query was submitted by Rachel Leach. The clinical justification for this PDMP query is to review controlled substances prescribed outside of the [place], and any additional information that may become available, as an important component of standard clinical care, and in accordance with [facility] policy. Patient information was shared with the PDMP [place]. No prescription(s) for controlled substances outside the [facility] were found in the last 90 days. /los/ RACHEL LEACH Psychiatrist[facility]ACINTH [facility] Signed: 10/10/2024 14:29 RACHEL LEACH [facility] Oct 10, 2024 02:00 PM PSYCHIATRY NOTE: LOCAL TITLE: PSYCHIATRY [facility] STANDARD TITLE: PSYCHIATRY NOTE DATE OF NOTE: OCT 10, 2024@14:00 ENTRY DATE: OCT 03, 2024@07:40:43 AUTHOR: RACHEL LEACH EXP COSIGNER: URGENCY: STATUS: COMPLETED PSYCHIATRY ST[facility] Has ADDENDA [facility] - MEDICATION MANAGEMENT Name..................JC MOSES Age...................54 Sex...................MALE SSN...................[id number] Service Connection.... Service Connected: 100% Rated Disabilities: POST-TRAUMATIC STRESS DISORDER (70% SC) SEIZURE DISORDER (80% SC) ASTHMA,BRONCHIAL (30% SC) HIATAL HERNIA (10% SC) TINNITUS (10% SC) FIBROMYALGIA (40% SC) CHRONIC FATIGUE SYNDROME (100% SC) [place] TELEHEALTH CONSENT: Consent: verbally consented to a clinical video telehealth follow-up appointment. Location: In [place], [place] in car (he was not driving) Phone number: Survey: Lock: The virtual conference room was locked. [...] sleep. Denied all others. Med trials: paroxetine: 4181-5679, max dose 30 mg, puts my head all weird. Horrible, violent night terrors. sertraline: 2013, max dose 100 mg didn't tolerate citalopram: 9562-8151, max dose 20 mg doesn't remember Cymbalta: [...] dose 200 mg pregabalin: potentially helpful hydroxyzine: 8960-6730, max dose up to 50 mg daily doesn't remember trazodone: Started in 2011 prazosin: Started in 2012 clonazepam: lorazepam, chronic, increasing tolerance/addiction, taken off zolpidem: 3499-2554, amnesia, sleep walking Ketamine:for pain, believes this made him suicidal Values/hobbies: Family (, lives with and adult daughter), work (runs a [employer]), outdoors/hunting INTERVAL HISTORY: HPI: The patient forgot about today's appt and required a phone call. As such, we started 6 min late. The patient was last seen on 08/08/2024 at which time medications were continued. He did see Dr. Pablo on 08/13/24 and then his pre k lead teacher on 09/12. He spoke to margarette on the phone on 09/27. Notes reviewed. 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 He stated that although he has overall been stable, he reported that he has had a decrease in self-esteem secondary to sexual dysfunction that occured in the past week. He stated he had tried the pump and, although it worked, he was unable to peform due to erectile functioning difficulties. He plans to see his urologist soon to speak more about his options. He is also trying to diet to see if this happens. The shared that he continues to have chronic feelings of hopelessness and worthlessness. He reported that, although he does have suicidal thoughts, he denied any intent or prepatory behavior. 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 He reported that, even when he had the experience when he as unable to peform sexually, although he was in a bad place , he immediately called a friend. The reported good compliance to medication and stated his helps with this. He denied any side effects today. OBJECTIVE: Problem List: 1) Abnormal results of liver function studies 2) Diverticulitis 3) Erectile dysfunction 4) Obesity 5) Chest pain 6) Sensory-neural hearing loss 7) Back pain (SNOMED CT 781119472) 8) Benign hypertension (SNOMED CT 87020678) 9) Convulsion 10) Male hypogonadism 11) Conversion disorder (SNOMED CT 538698218) 12) Testicular hypofunction 13) Osteoarthritis of right [...] STOOL 12) DRESSING,POLYSKIN II 2 X 2.75IN JEFFERY#8309 USE/APPLY ACTIVE DRESSING(S) TO AFFECTED AREA(S) DIRECTED [...] access to treatment * future orientation * adventism jordy ([employer]) * responsibility towards family History of violence: [...] case of a mental health emergency. ASSESSMENT: SAMINAJC MCKEON is a with PMH of PTSD, MDD, PNES, fibromyalgia, non-insulin dependent diabetes mellitus 2, diverticulitis s/p colectomy who initially presented in 1998. He most recently followed with Dr Link until joining my clinic on 05/21/2024. 08/08/2024: reported stability in his mood and anxiety symptoms since we last spoke. He feels he is doing well navigating these symptoms and does not feel an increase in medications are needed at this time. Please see below for updates to plan. 10/10/24: [place] reported worsening self-esteem and mood in the context of difficulties with sexual performance even after his urologic procedure. The did not report any acute safety concerns necessitating a higher level of care via involuntary hospitalization. He did request as needed Ativan and times where he has a romero of emotions to assist. Although this might not be unreasonable with a UDS on file (dispensing limited amounts), I encouraged the to first try hydroxyzine as below. The plans to speak to urology next month in hopes to get good updates. He will also be working on his diet to assist with sexual dysfunction. DIAGNOSES: # PTSD # MDD # PNES # Insomnia TREATMENT PLAN: # PTSD # MDD # PNES -Cont cymbalta 30 mg -Cont prazosin 6 mg qhs -Start hydroxyzine 25 to 50 mg 3 times daily as needed -[place] requested Ativan, we discussed holding off on trying hydroxyzine first. Could consider Ativan in the future, although would need a UDS before any prescription could be filled and certainly a [id number]-lx-[id number] appointment. If this were to occur, we would only allow for use upto 1-2 times a week -Cont psychotherapy w/ Dr. Pablo -Cont biofeedback # Insomnia -Continue trazodone 200 mg nightly FOLLOW UP: 2-3 mo SUPPORTIVE PSYCHOTHERAPY/PSYCHOEDUCATI ON: 16+ minutes of supportive psychotherapy as we discussed recent psychosocial stressors and emotional/behavioral response to them INSTRUCTIONS GIVEN TO PATIENT/FAMILY *Report medication side [...] and reported no further questions. REMINDERS: Last [place] assessment completed on 05/21/24 /HYACINTH Fernandes [facility] Signed: 10/10/2024 14:29 10/24/2024 ADDENDUM STATUS: COMPLETED Spoke with pain management pharmacy colleagues and we agreed to increase cymbalta to 60 mg to target both pain and mood symptoms. I have sent the new prescription and pharmacy will be contacting to notify him of this. CrCl>30 /HYACINHT Fernandes [facility] Signed: 10/24/2024 13:54 RACHEL LEACH [facility]
--- OUTSIDE RECORDS SUMMARY | 2024-11-30 15:30 | XMS_ITS | Encounter Summary ---
Author Name [facility] Address [address] [place] [address] Care Team Providers Care Sprinkler Repair Technician Name Role Phone YONATAHN LINDSAY Primary Care Provider OMEGA Bethea Unavailable Unavailable Selected Encounter This section includes the information on record at [facility] for the Encounter. Date/Time Encounter Type Encounter Description Reason Provider Source Jun 25, 2024 03:00 PM PSYTX W PT 60 MINUTES PTSD OUTPT RES SPEC PROG INDIV ICD-10-CM F43.12 Post-traumatic stress disorder, chronic FRANKLIN HASSAN IHYumi Encounter Template Text not used by [facility] Assessments - Encounter Diagnoses This section includes the primary and secondary diagnoses documented for the Encounter. Date/Time Primary/Secondary Diagnosis Diagnosis Name Provider Source Jun 25, 2024 04:05 PM PRIMARY Post-traumatic stress disorder, chronic FRANKLIN HASSAN [facility] Plan of Treatment: Future Appointments (+ 6 months) and Future Tests (+/- 45 days) The Plan of Treatment section includes future care activities for the patient from all [facility] treatmentfacilities. This section includes future appointments and future orders which are active, pending or scheduled. Future Appointments This section includes appointments that were scheduled to occur 6 months from the date of the Encounter, up to a maximum of 20 appointments. The data comes from all [facility] treatment facilities. Appointment Date/Time Appointment Type Appointme nt Facility Name Jul 01, 2024 10:30 AM AMBULATORY - NONE [facility] Jul 08, 2024 10:30 AM AMBULATORY - REHAB MEDICIN E [facility] Jul 18, 2024 02:00 PM AMBULATORY - MEDICINE [facility] Jul 22, 2024 03:00 PM AMBULATORY - NONE [facility] Aug 02, 2024 01:30 PM AMBULATORY - SURGERY . [facility] Aug 08, 2024 02:00 PM AMBULATORY - PSYCHIATRY [facility] Aug 09, 2024 02:00 PM AMBULATORY - SURGERY [facility] Aug 13, 2024 03:00 PM AMBULATORY - PSYCHIATRY [facility] Aug 27, 2024 09:30 AM AMBULATORY - REHAB MEDICIN E [facility] Sep 03, 2024 10:30 AM AMBULATORY - NONE [facility] Sep 11, 2024 11:00 AM AMBULATORY - REHAB MEDICIN E [facility] Sep 12, 2024 02:30 PM AMBULATORY - MEDICINE [facility] Sep 27, 2024 10:15 AM AMBULATORY - REHAB MEDICIN E [facility] Oct 10, 2024 02:00 PM AMBULATORY - PSYCHIATRY [facility] Oct 24, 2024 11:00 AM AMBULATORY - REHAB MEDICIN E [facility] Oct 25, 2024 10:30 AM AMBULATORY - MEDICINE [facility] Nov 01, 2024 01:00 PM AMBULATORY - SURGERY [facility] Nov 13, 2024 12:00 PM AMBULATORY - NONE [facility] Nov 13, 2024 02:00 PM AMBULATORY - MEDICINE [facility] November 29, 2024 11:15 AM AMBULATORY - REHAB MEDICIN E [facility] Active, Pending, and Scheduled Orders This section includes a listing of several types of active, pending, and scheduled orders, including clinic medications orders, diagnostic test orders, procedure orders and consult orders; where the start date of the order is 45 days before the date of the Encounter or 45 days after the date of theEncounter. The data comes from all [facility] treatment facilities. Test Date/Time Test Type Test Details Facility Name Jul 18, 2024 12:00 AM Laboratory - Chemi stry Order HEPATIC FUNTION PANEL (STL) GREEN LI/HEP BLD/PLAS PLASMA SP [facility] Jul 18, 2024 12:00 AM Laboratory - Chemi stry Order HGA1C BLOOD SP [facility] Jul 18, 2024 12:00 AM Laboratory - Chemi stry Order PROST. SPECIFIC AG.(PB-STL) GOLD/RED SST SERUM SP [facility] Jul 18, 2024 12:00 AM Laboratory - Chemi stry Order AMMONIA (STL-MA) WHITE CAP EDTA PLASMA SP [facility] Jul 18, 2024 12:00 AM Laboratory - Chemi stry Order MICRAL/CREAT PROFILE (STL) URINE SP [facility] Social History: Smoking Status (Most current) and [...] 2023 01:09 PM VA-TOBACCO USER EVERY DAY [facility] Tobacco Use History This section includes a history of the smoking, or tobacco-related health factors, that were collected on or before the date of the Encounter. The data comes from the [facility] facility where the Encounter took place. Date/Time Smoking Status/Tobacco Use Comment F acility Jul 04, 2023 01:09 PM VA-TOBACCO USE ADVICE [facility] Jul 04, 2023 01:09 PM VA-TOBACCO USE BINDER SELECTOR NO [facility] Jul 04, 2023 01:09 PM VA-TOBACCO USE MED NO [facility] Jul 04, 2023 01:09 PM VA-TOBACCO USE WI 30 MIN OF WAKEUP [facility] Jul 04, 2023 01:09 PM VA-TOBACCO USER EVERY DAY [facility] Jul 28, 2022 01:00 PM VA-TOBACCO FORMER USER [facility] Jul 28, 2022 01:00 PM VA-TOBACCO QUIT 15 YRS OR MORE [facility] Jul 13, 2021 01:00 PM VA-TOBACCO DOESNT USE WI 30 MIN WAKEUP [facility] Jul 13, 2021 01:00 PM VA-TOBACCO USE 30 YEARS OR MORE [facility] Jul 13, 2021 01:00 PM VA-TOBACCO USE ADVICE [facility] Jul 13, 2021 01:00 PM VA-TOBACCO USE BINDER SELECTOR NO [facility] Jul 13, 2021 01:00 PM VA-TOBACCO USE MED NO [facility] Jul 13, 2021 01:00 PM VA-TOBACCO USER SOME DAYS [facility] May 20, 2020 03:30 PM VA-TOBACCO DOESNT USE WI 30 MIN WAKEUP [facility] May 20, 2020 03:30 PM VA-TOBACCO USE > 1 5 LESS THAN 30 YEARS [facility] May 20, 2020 03:30 PM VA-TOBACCO USE ADVICE [facility] May 20, 2020 03:30 PM VA-TOBACCO USE BINDER SELECTOR NO [facility] May 20, 2020 03:30 PM VA-TOBACCO USE MED NO [facility] May 20, 2020 03:30 PM VA-TOBACCO USER SOME DAYS [facility] Jun 26, 2018 11:30 AM VA-TOBACCO FORMER USER [facility] Jun 26, 2018 11:30 AM VA-TOBACCO QUIT 15 YRS OR MORE [facility] Mar 02, 2017 07:35 AM QUIT TOBACCO >7 YEARS AGO [facility] May 25, 2016 05:48 AM CURRENT TOBACCO USER [facility] May 25, 2016 05:48 AM TOBACCO MEDS OFFER ED BUT DECLINED [facility] Jun 23, 2015 02:29 PM QUIT TOBACCO >7 YEARS AGO [facility] Sep 12, 2014 06:15 AM CURRENT TOBACCO USER [facility] Sep 12, 2014 06:15 AM QUIT TOBACCO >7 YEARS AGO [facility] Sep 12, 2014 06:15 AM TOBACCO MEDS OFFER ED BUT DECLINED [facility] Jun 25, 2013 02:47 PM QUIT TOBACCO >7 YEARS AGO [facility] May 04, 2010 12:36 PM LIFETIME NON-USER OF TOBACCO [facility] Jul 30, 2009 11:12 AM CURRENT TOBACCO USER [facility] Mar 20, 2008 01:00 PM CURRENT TOBACCO USER [facility] Mar 20, 2008 01:[address] [facility] Mar 20, 2008 01:00 PM TOBACCO OFFERRED P T MEDS (PROVIDER) [facility] Mar 06, 2007 10:38 AM QUIT TOBACCO >7 YEARS AGO [facility] May 09, 2006 09:29 AM CURRENT TOBACCO USER [facility] Aug 27, 2004 10:41 AM CURRENT TOBACCO USER [facility] Aug 27, 2004 10:41 AM SMOKER <10 [facility] Advance Directives: All historical and current Section Date Range: From patient's date of to the date document was created. This section includes ALL of a patient's completed or amended [facility] Advance and Rescinded Directives. The entries below indicate that a directive exists for the patient, but an actual copy is not included with this document. The data comes from all [facility] facilities. Date Advance Directives Provider Source Oct 21, 2022 FRANKLIN KO [facility] Sep 23, 2004 ADVANCE DIRECTIVE CJ RUDOLPH [facility] May 24, 2004 ADVANCE DIRECTIVE MITCH ZEE [facility] May 24, 2000 ADVANCE DIRECTIVE MICHELE CENTENO [facility] Nov 11, 1996 ADVANCE DIRECTIVE MAGGIE DRAKE [facility] December 08, 1995 ADVANCE DIRECTIVE KI SANTOYO [facility] Encounter Notes: All associated encounter notes This section contains the clinical notes associated to the Encounter. Date/Time Encounter Note(s) Provider Source Jun 25, 2024 04:00 PM PSYCHOLOGY NOTE: LOCAL TITLE: TRP PSYCHOTHERAPY [facility] STANDARD TITLE: PSYCHOLOGY NOTE DATE OF NOTE: JUN 25, 2024@16:00 ENTRY DATE: JUN 25, 2024@16:00:14 AUTHOR: FRANKLIN HASSAN COSIGNER: URGENCY: STATUS: COMPLETED PCT Psychotherapy Tracking Today's psychotherapy session was part of a standardized episode of Other PTSD Psychotherapy (e.g. supportive therapy): Other: Present Centered/Emotional processing Measurement Based Care (MBC): MBC Act Following discussion of [place]'s reported outcomes, we discussed the impact on treatment goals. As a result the treatment plan will remain the same. NATURE OF ENCOUNTER: indiv. psychotherapy TIME SPENT WITH PATIENT (Minutes): 55 SESSION NUMBER: SESSION FORMAT: [ ] [id number] [ X] Video Telehealth [ ] Phone GOALS: The following goals were developed using shared decision-making with input by the [place]- Presents with complicated mix of medical, trauma-based/psychiatric [...] [X ] Specify: Mood is fairly good today but has had some rough recent periods with serial seizures/flashsbacks though he reports that he generally knows how to cope. However, relies a lot on his for help with this but he has been living in an on his [address] something parents property to help care for them after his mother had multiple strokes and his father had an occular stroke that same week and is now blind in one eye. He notes that while he is still struggling with his own stuff, that being needed is also helping him stay focused on other things for now. He is trying to orchestrate Thanksgiving for his other siblings, parents, etc. as some of them are not functioning well and it falls on him. This is helping him counter some of the mood issues/anxiety and other trauma related issues that often get in his way. TYPE OF INTERVENTIONS PROVIDED BY THERAPIST: [ [...] current situation of his parents health crisis. Cont. to reinforced the 's proactive steps towards constructive coping and problem-solving. ASSESSMENT MEASURES USED THIS SESSION: Measures/Scores: [ ] Results are located in Mental Health Diagnostic Study Note Measures not collected/administered this session: Rationale and plan for next administration: X future session OR, Efforts made to increase measurement: ___ Symptom review completed in Progress Towards Goals MENTAL STATUS/PRESENTATION: [place] sounds euthymic with approp. affect today. Cont. [...] with regular medical f/u. IDEATION: [X ] [place] denied current suicidal or homicidal ideation, plan, or intent. (Based on available information) [ ] Suicidal or homicidal ideation/behavior WAS identified: CLINICAL JUDGMENT AND DISPOSITION: [X ] In consideration of relevant risk and protective factors, the [place] did NOT appear to be at imminent risk for suicide or homicide at this time and IS sustainable at the current level of care. -Comments: [ ] [place] IS considered to be at INCREASED RISK for suicide or homicide based upon: -Actions/interventions taken to address risk and prevent harm include: -Emergency protocols initiated were: -Comments: Emergency Services: [place] voiced understanding and willingness to go to the [facility] emergency room during crisis or to utilize nearest hospital emergency services as needed. has been given the [place]'s Crisis Hotline number. MEASURABLE TREATMENT GOALS FOR THIS EPISODE OF CARE: To reduce PTSD and depressive/adjustment symptoms and impairments in functioning COLLABORATIVE RECOMMENDATIONS/PLAN: Assigned Therapy Tasks: [ X] Collaboratively discussed outcomes related to assessment and treatment progress. Based on this discussion: [ ] No changes to plan of care. expressed agreement with therapy tasks and [id number] plan. [X ] Recommend changes to plan of care: Reviewed proposed changes. Discussed potential benefits, risks, and complications. We will be tightening the session interval temporarily until such time as we collaboratively feel he can go back to normal interval. agreed to proceed with changes. [ X] YES [ ] NO Comments: RTC on 08/13/23@1500 via C /los/ FRANKLIN HASSAN PSY.D. Psychologist, [facility] Signed: 06/25/2024 16:05 FRAKNLIN HASSAN [facility]
--- OUTSIDE RECORDS SUMMARY | 2024-11-30 15:30 | XMS_ITS | Encounter Summary ---
Author Name [facility] [facility] [place] [facility] [place] Address [address] [place] [address] Care Team Providers Care Credit Card Associate Name Role Phone YONATHAN LINDSAY Primary Care Provider OMEGA Bethea Unavailable Unavailable Selected Encounter This section includes the information on record at [place] for the Encounter. Date/Time Encounter Type Encounter Description Reason Provider Source Mar 05, 2024 03:00 PM PSYTX W PT 30 MINUTES PTSD OUTPT RES SPEC PROG INDIV ICD-10-CM F43.12 Post-traumatic stress disorder, chronic FRANKLIN HASSAN IHYumi Encounter Template Text not used by [place] Assessments - Encounter Diagnoses This section includes the primary and secondary diagnoses documented for the Encounter. Date/Time Primary/Secondary Diagnosis Diagnosis Name Provider Source Mar 05, 2024 03:58 PM PRIMARY Post-traumatic stress disorder, chronic FRANKLIN HASSAN [facility] Plan of Treatment: Future Appointments (+ 6 months) and Future Tests (+/- 45 days) The Plan of Treatment section includes future care activities for the patient from all [place] treatmentfacilities. This section includes future appointments and future orders which are active, pending or scheduled. Future Appointments This section includes appointments that were scheduled to occur 6 months from the date of the Encounter, up to a maximum of 20 appointments. The data comes from all [place] treatment facilities. Appointment Date/Time Appointment Type Appointme nt Facility Name Mar 08, 2024 01:00 PM AMBULATORY - PSYCHIATRY [facility] Mar 26, 2024 03:00 PM AMBULATORY - PSYCHIATRY [facility] Apr 03, 2024 11:00 AM AMBULATORY - MEDICINE [facility] Apr 08, 2024 02:00 PM AMBULATORY - SURGERY [facility] Apr 09, 2024 01:00 PM AMBULATORY - NONE [facility] Apr 19, 2024 10:00 AM AMBULATORY - NONE [facility] Apr 23, 2024 03:00 PM AMBULATORY - MEDICINE [facility] Apr 29, 2024 01:00 PM AMBULATORY - NONE [facility] Apr 30, 2024 03:00 PM AMBULATORY - PSYCHIATRY [facility] May 03, 2024 10:30 AM AMBULATORY - SURGERY [facility] May 21, 2024 01:00 PM AMBULATORY - PSYCHIATRY [facility] May 31, 2024 10:30 AM AMBULATORY - SURGERY . [facility] Jun 05, 2024 09:30 AM AMBULATORY - NONE [facility] Jun 14, 2024 11:00 AM [facility] Jun 17, 2024 03:00 PM AMBULATORY - MEDICINE [facility] Jun 25, 2024 03:00 PM AMBULATORY - PSYCHIATRY [facility] Jul 01, 2024 10:30 AM AMBULATORY - NONE [facility] Jul 08, 2024 10:30 AM AMBULATORY - REHAB MEDICIN E [facility] Jul 18, 2024 02:00 PM AMBULATORY - MEDICINE [facility] Jul 22, 2024 03:00 PM AMBULATORY - NONE [facility] Lab Results: +/- 30 days [...] Type Comment Feb 23, 2024 11:19 AM [facility] CONJ. BILIRUBIN PLASMA Specimen Type: PLASMA Comment: LDL Unable to be calculated LDL calculation invalid when Triglyceride exceeds 250 mg/dl Ordering Provider: NIKA SANCHEZ Report Released Date/Time: Feb 23, 2024 10:51 AM Reporting Lab: [facility] [address] [facility] [address] Performing Lab: [facility] [address] [id number] CONJ. BILIRUBIN 0.2 mg/dL 0-0.5 Feb 23, 2024 11:19 AM [facility] PT/INR NEW (STL-MA) PLASMA Specimen Type: PLAS MA No comment entered. Ordering Provider: NIKA SANCHEZ Report Released Date/Time: Feb 23, 2024 10:51 AM Reporting Lab: [place] [address] [facility] [phone] Performing Lab: [facility] [address] [facility] [phone] PROTIME 12.2 s 9.4-12.5 INR VALUE 1.1 {INR} Feb 23, 2024 11:19 AM [facility] LIPID PANEL (STL) PLASMA Specimen Type: PLASM A Comment: LDL Unable to be calculated LDL calculation invalid when Triglyceride exceeds 250 mg/dl Ordering Provider: NIKA SANCHEZ Report Released Date/Time: Feb 23, 2024 10:51 AM Reporting Lab: [place] [id number] [facility] [phone] Performing Lab: [place] [address] [facility] [phone] CHOLESTEROL 153 mg/dL 0-200 TRIGLYCERIDE 373 mg/dL H 0-150 DIRECT LDL 64 mg/dL L >100 CALCULATED LDL comment mg/dL HDL(New) 37 mg/dL L >40 Feb 23, 2024 11:19 AM [facility] COMPREHENSIVE METABOLIC PANEL PLASMA Specimen Type: PLASMA Comment: LDL Unable to be calculated LDL calculation invalid when Triglyceride exceeds 250 mg/dl Ordering Provider: NIKA SANCHEZ Report Released Date/Time: Feb 23, 2024 10:51 AM Reporting Lab: [address] [address] Performing Lab: [address] [address] CREATININE 0.85 mg/dL 0.7-1.3 UREA NITROGEN 14.4 [...] 102.6 >60 Feb 23, 2024 11:19 AM [facility] CBC BLOOD Specimen Type: BLOOD No comment entered. Ordering Provider: NIKA SANCHEZ Report Released Date/Time: Feb 23, 2024 10:51 AM Reporting Lab: [address] [address] Performing Lab: [address] [address] WBC 7.1 10*3/uL 3.6-11.2 RBC 5.10 10*6/uL [...] and tobacco- related health factors from the [place] facility where the Encounter took place. Current Smoking Status This section includes the most current smoking, or tobacco-related health factor, from the [place] facility where the Encounter took place. Date/Time Current Smoking Status Comment Facil ity Jul 04, 2023 01:09 PM VA-TOBACCO USE WI 30 MIN OF WAKEUP [facility] Tobacco Use History This section includes a history of the smoking, or tobacco-related health factors, that were collected on or before the date of the Encounter. The data comes from the [place] facility where the Encounter took place. 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 [facility] Jul 04, 2023 01:09 PM VA-TOBACCO USE MED NO [facility] Jul 04, 2023 01:09 PM VA-TOBACCO USE WI 30 MIN OF WAKEUP [facility] Jul 04, 2023 01:09 PM VA-TOBACCO USER EVERY DAY [facility] Jul 28, 2022 01:00 PM VA-TOBACCO FORMER USER [facility] Jul 28, 2022 01:00 PM VA-TOBACCO QUIT 15 YRS OR MORE [facility] Jul 13, 2021 01:00 PM VA-TOBACCO DOESNT USE WI 30 MIN WAKEUP [facility] Jul 13, 2021 01:00 PM VA-TOBACCO USE 30 YEARS OR MORE [facility] Jul 13, 2021 01:00 PM VA-TOBACCO USE ADVICE [facility] Jul 13, 2021 01:00 PM 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 [facility] Jul 13, 2021 01:00 PM VA-TOBACCO USE MED NO [facility] Jul 13, 2021 01:00 PM VA-TOBACCO USER SOME DAYS [facility] May 20, 2020 03:30 PM VA-TOBACCO DOESNT USE WI 30 MIN WAKEUP [facility] May 20, 2020 03:30 PM VA-TOBACCO USE > 1 5 LESS THAN 30 YEARS [facility] May 20, 2020 03:30 PM VA-TOBACCO USE ADVICE [facility] May 20, 2020 03:30 PM 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 [facility] May 20, 2020 03:30 PM VA-TOBACCO USE MED NO [facility] May 20, 2020 03:30 PM VA-TOBACCO USER SOME DAYS [facility] Jun 26, 2018 11:30 AM VA-TOBACCO FORMER USER [facility] Jun 26, 2018 11:30 AM VA-TOBACCO QUIT 15 YRS OR MORE [facility] Mar 02, 2017 07:35 AM QUIT TOBACCO >7 YEARS AGO [facility] May 25, 2016 05:48 AM CURRENT TOBACCO USER [facility] May 25, 2016 05:48 AM TOBACCO MEDS OFFER ED BUT DECLINED [facility] Jun 23, 2015 02:29 PM QUIT TOBACCO >7 YEARS AGO [facility] Sep 12, 2014 06:15 AM CURRENT TOBACCO USER [facility] Sep 12, 2014 06:15 AM QUIT TOBACCO >7 YEARS AGO [facility] Sep 12, 2014 06:15 AM TOBACCO MEDS OFFER ED BUT DECLINED [facility] Jun 25, 2013 02:47 PM QUIT TOBACCO >7 YEARS AGO [facility] May 04, 2010 12:36 PM LIFETIME NON-USER OF TOBACCO [facility] Jul 30, 2009 11:12 AM CURRENT TOBACCO USER [facility] Mar 20, 2008 01:00 PM CURRENT TOBACCO USER [facility] Mar 20, 2008 01:[address] OP SMOKING CLINIC [facility] Mar 20, 2008 01:00 PM TOBACCO OFFERRED P T MEDS (PROVIDER) [facility] Mar 06, 2007 10:38 AM QUIT TOBACCO >7 YEARS AGO [facility] May 09, 2006 09:29 AM CURRENT TOBACCO USER [facility] Aug 27, 2004 10:41 AM CURRENT TOBACCO USER [facility] Aug 27, 2004 10:41 AM SMOKER <10 [facility] Advance Directives: All historical and current Section Date Range: From patient's date of to the date document was created. This section includes ALL of a patient's completed or amended [place] Advance and Rescinded Directives. The entries below indicate that a directive exists for the patient, but an actual copy is not included with this document. The data comes from all [place] facilities. Date Advance Directives Provider Source Oct 21, 2022 FRANKLIN KO [facility] Sep 23, 2004 ADVANCE DIRECTIVE CJ RUDOLPH [facility] May 24, 2004 ADVANCE DIRECTIVE MITCH ZEE [facility] May 24, 2000 ADVANCE DIRECTIVE MICHELE CENTENO [facility] Nov 11, 1996 ADVANCE DIRECTIVE MAGGIE DRAKE [facility] December 08, 1995 ADVANCE DIRECTIVE KI SANTOYO [facility] Encounter Notes: All associated encounter notes This section contains the clinical notes associated to the Encounter. Date/Time Encounter Note(s) Provider Source Mar 05, 2024 03:48 PM PSYCHOLOGY NOTE: LOCAL TITLE: TRP PSYCHOTHERAPY [facility] STANDARD TITLE: PSYCHOLOGY NOTE DATE OF NOTE: MAR 05, 2024@15:48 ENTRY DATE: MAR 05, 2024@15:48:08 AUTHOR: FRANKLIN HASSAN EXP COSIGNER: URGENCY: STATUS: COMPLETED PCT Psychotherapy Tracking Today's psychotherapy session was part of a standardized episode of Other PTSD Psychotherapy (e.g. supportive therapy): Other: Present Centered Therapy Measurement Based Care (MBC): MBC Act Following discussion of [place]'s reported outcomes, we discussed the impact on treatment goals. As a result the treatment plan will remain the same. NATURE OF ENCOUNTER: [facility] TIME SPENT WITH PATIENT (Minutes): 19 SESSION NUMBER: SESSION FORMAT: [ ] [id number] [ X] Video Telehealth [ ] Phone GOALS: The following goals were developed using shared decision-making with input by the [place]- Presents with complicated mix of medical, trauma-based/psychiatric [...] since last contact [X ] Specify: Mood was quite good considering that he was reporting being in the midst of recovering from a hypoglycemic episode. [place] and [place] up for his service dog [employer] and the heat and low sugar began producing sxs. He is feeling better but feels worn out and asked if we could cut session short. TYPE OF INTERVENTIONS PROVIDED BY THERAPIST: [ ]Rapport Building [ ] Shared decision-making regarding goals of care [X ] Psychotherapy (Specify modality): Present centered therapy/solution psychotherapy [ ] Health Psychology Interventions [ ] Graduation Planning [ ] Other: DESCRIPTION OF INTERVENTIONS PROVIDED BY THERAPIST: Present Centered work, though limited today by his health. Otherwise reporting that he is doing OK except for the typical struggles with medical issues, but emotionally sounds stable. Getting a vicky to get some work done on his house to assist with accomodations and he was pleased with that though hates the reasons he needs them in the first place (degraded functioning and health problems). Cont. to reinforced the 's proactive steps [...] understanding and willingness to go to the [place] emergency room during crisis or to utilize [facility] emergency services as needed. [place] has been given the 's Crisis Hotline number. MEASURABLE TREATMENT GOALS FOR THIS EPISODE OF CARE: To reduce PTSD and depressive/adjustment symptoms and impairments in functioning COLLABORATIVE RECOMMENDATIONS/PLAN: Assigned Therapy Tasks: [ X] Collaboratively discussed outcomes related to assessment and treatment progress. Based on this discussion: [ ] No changes to plan of care. [place] expressed agreement with therapy tasks and [id number] plan. [X ] Recommend changes to plan of care: Reviewed proposed changes. Discussed potential benefits, risks, and complications. We will be tightening the session interval temporarily until such time as we collaboratively feel he can go back to normal interval. [place] agreed to proceed with changes. [ X] YES [ ] NO Comments: RTC on 03/26/24@1500 via [facility] /los/ FRANKLIN HASSAN PSY.D. Psychologist, [facility] Recovery [facility] Signed: 03/05/2024 15:58 FRANKLIN HASSAN [facility]
--- OUTSIDE RECORDS SUMMARY | 2024-11-30 15:30 | XMS_ITS | Encounter Summary ---
Author Name [facility] [place] Organization [facility] [place] Address [address] [place] [address] Care Team Providers Care Registered Dietetic Technician Name Role Phone YONATHAN LINDSAY Primary Care Provider OMEGA Bethea Unavailable Unavailable Selected Encounter This section includes the information on record at CT for the Encounter. Date/Time Encounter Type Encounter Description Reason Provider Source December 12, 2023 01:00 PM SELF-MGMT EDUC & TRAIN 1 PT OCCUPATIONAL THERAPY ICD-10-CM R26.0 Ataxic gait GARLAND VILLEDA IHYumi Encounter Template Text not used by CT Assessments - Encounter Diagnoses This section includes the primary and secondary diagnoses documented for the Encounter. Date/Time Primary/Secondary Diagnosis Diagnosis Name Provider Source December 12, 2023 03:46 PM PRIMARY Ataxic gait GARLAND VILLEDA [facility] Plan of Treatment: Future Appointments (+ 6 months) and Future Tests (+/- 45 days) The Plan of Treatment section includes future care activities for the patient from all CT treatmentfacilities. This section includes future appointments and future orders which are active, pending or scheduled. Future Appointments This section includes appointments that were scheduled to occur 6 months from the date of the Encounter, up to a maximum of 20 appointments. The data comes from all CT treatment facilities. Appointment Date/Time Appointment Type Appointme nt Facility Name December 14, 2023 11:00 AM AMBULATORY - MEDICINE [facility] December 15, 2023 06:30 PM AMBULATORY - NONE [facility] December 18, 2023 05:42 PM AMBULATORY - MEDICINE [facility] December 19, 2023 01:00 PM AMBULATORY - MEDICINE [facility] December 19, 2023 03:00 PM AMBULATORY - PSYCHIATRY [facility] December 21, 2023 04:00 PM AMBULATORY - PSYCHIATRY [facility] Jan 01, 2024 07:02 PM AMBULATORY - MEDICINE [facility] Jan 11, 2024 10:15 AM AMBULATORY - MEDICINE [facility] Jan 15, 2024 11:15 AM AMBULATORY - MEDICINE [facility] Jan 15, 2024 01:00 PM AMBULATORY - NONE [facility] Jan 30, 2024 10:00 AM AMBULATORY - SURGERY [facility] Jan 30, 2024 03:00 PM AMBULATORY - PSYCHIATRY [facility] Feb 02, 2024 02:30 PM AMBULATORY - PSYCHIATRY [facility] Feb 08, 2024 01:30 PM AMBULATORY - NONE [facility] Feb 13, 2024 10:00 AM AMBULATORY - NONE [facility] Feb 15, 2024 10:00 AM AMBULATORY - MEDICINE [facility] Feb 19, 2024 11:00 AM AMBULATORY - NONE [facility] Feb 23, 2024 10:30 AM AMBULATORY - MEDICINE [facility] Feb 26, 2024 03:00 PM AMBULATORY - MEDICINE [facility] Mar 05, 2024 03:00 PM AMBULATORY - PSYCHIATRY [facility] Active, Pending, and Scheduled Orders This section includes a listing of several types of active, pending, and scheduled orders, including clinic medications orders, diagnostic test orders, procedure orders and consult orders; where the start date of the order is 45 days before the date of the Encounter or 45 days after the date of theEncounter. The data comes from all CT treatment facilities. Test Date/Time Test Type Test Details Facility Name Nov 28, 2023 12:00 AM Laboratory - Chemistry Order AMMONIA (STL-MA) WHITE CAP EDTA PLASMA SP [facility] December 19, 2023 12:00 AM Laboratory - Chemistry Order ANTI-MITOCHONDRIAL AB (STL) GOLD/RED SST SERUM SP [facility] December 19, 2023 12:00 AM Laboratory - Chemistry Order ALPHA-1 ANTITRYPSIN (STL) GREEN LI/HEP BLD/PLAS PLASMA SP [facility] December 19, 2023 12:00 AM Laboratory - Chemistry Order ACTIN (SMOOTHMUSCLE) ANTIBODY IGG GOLD/RED SST SERUM SP [facility] December 19, 2023 12:00 AM Laboratory - Chemistry Order CERULOPLASMIN (L-PB) GOLD/RED SST SERUM SP [facility] Lab Results: +/- 30 days [...] Type Comment December 14, 2023 11:58 AM [facility] B12 SERUM Specimen Type: SERUM No comment entered. Ordering Provider: SHELIA MOREIAR Report Released Date/Time: Nov 28, 2023 11:26 AM Reporting Lab: [facility] [address] [facility] [address] Performing Lab: [address] [address] B12 423 pg/mL [phone] December 14, 2023 11:58 AM [facility] CBC BLOOD Specimen Type: BLOOD No comment entered. Ordering Provider: SHELIA MOREIRA Report Released Date/Time: Nov 28, 2023 11:26 AM Reporting Lab: [facility] [address] [facility] [address] Performing Lab: [address] [address] WBC 5.9 10*3/uL 3.6-11.2 RBC 5.18 10*6/uL [...] 0.00-0. 20 December 14, 2023 11:58 AM [facility] COMPREHENSIVE METABOLIC PANEL PLASMA Specimen Type: PLASMA Comment: No hemolysis noted. Ordering Provider: SHELIA MOREIRA Report Released Date/Time: Nov 28, 2023 11:26 AM Reporting Lab: [facility] [address] [facility] [address] Performing Lab: [address] [address] CREATININE 0.90 mg/dL 0.7-1.3 UREA NITROGEN 12.9 [...] 100.9 >60 December 14, 2023 11:57 AM [facility] HGA1C BLOOD Specimen Type: BLOOD No comment entered. Ordering Provider: RAKEL TORRES Report Released Date/Time: December 14, 2023 11:26 AM Reporting Lab: [facility] [address] [facility] [address] Performing Lab: [facility] [address] [facility] [address] HGA1C 6.8 H 4.0-6.0 December 14, 2023 11:57 AM [facility] VITAMIN D, 25-HYDROXY SERUM Specimen Type: SE RUM No comment entered. Ordering Provider: RAKEL TORRES Report Released Date/Time: December 14, 2023 11:35 AM Reporting Lab: [facility] [address] [facility] [address] Performing Lab: [address] [address] VITAMIN D, 25-HYDROXY 44.3 ng/mL 30- Social History: Smoking Status (Most current) and Tobacco Use (All prior to encounter date) This section includes the most current, and the historical, smoking and tobacco- related health factors from the CT facility where the Encounter took place. Current Smoking Status This section includes the most current smoking, or tobacco-related health factor, from the [place] facility where the Encounter took place. Date/Time Current Smoking Status Comment Irena ity Jul 04, 2023 01:09 PM VA-TOBACCO USER EVERY DAY [facility] Tobacco Use History This section includes a history of the smoking, or tobacco-related health factors, that were collected on or before the date of the Encounter. The data comes from the CT facility where the Encounter took place. Date/Time Smoking Status/Tobacco Use Comment F acility Jul 04, 2023 01:09 PM VA-TOBACCO USE ADVICE [facility] Jul 04, 2023 01:09 PM VA-TOBACCO USE ELEMENTARY EDUCATION TUTOR NO [facility] Jul 04, 2023 01:09 [...] Jul 13, 2021 01:00 PM VA-TOBACCO USE ELEMENTARY EDUCATION TUTOR NO [facility] Jul 13, 2021 01:00 [...] May 20, 2020 03:30 PM VA-TOBACCO USE ELEMENTARY EDUCATION TUTOR NO [facility] May 20, 2020 03:30 [...] 01:[address] [facility] Mar 20, 2008 01:00 PM TOBACCO OFFERRED P T MEDS (PROVIDER) [facility] Mar 06, 2007 10:38 AM QUIT TOBACCO >7 YEARS AGO [facility] May 09, 2006 09:29 AM CURRENT TOBACCO USER [facility] Aug 27, 2004 10:41 AM CURRENT TOBACCO USER [facility] Aug 27, 2004 10:41 AM SMOKER <10 [facility] Advance Directives: All historical and current Section Date Range: From patient's date of to the date document was created. This section includes ALL of a patient's completed or amended CT Advance and Rescinded Directives. The entries below indicate that a directive exists for the patient, but an actual copy is not included with this document. The data comes from all CT facilities. Date Advance Directives Provider Source Oct 21, 2022 FRANKLIN KO [facility] Sep 23, 2004 ADVANCE DIRECTIVE CJ RUDOLPH [facility] May 24, 2004 ADVANCE DIRECTIVE MITCH ZEE [facility] May 24, 2000 ADVANCE DIRECTIVE MICHELE CENTENO [facility] Nov 11, 1996 ADVANCE DIRECTIVE MAGGIE DRAKE [facility] December 08, 1995 ADVANCE DIRECTIVE KI SANTOYO [facility] Radiology Reports: +/- 30 days [...] the Encounter. The data comes from all CT treatment facilities. 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 Right anterior aspect just proximal of mid-point COMPARISON: Right knee radiograph 06/04/2018 TECHNIQUE: 2 views of the right knee, 4 views of the right tibia/fibula, and 3 views of the right ankle, submitted to the CT National Teleradiology Program (NTP) for interpretation. FINDINGS: [...] and ankle. READING PHYSICIAN: Rogelio Alford MD -[id number] 01/01/2024 18:34 PDT [facility] National Teleradiology Program [phone] (For Medical Practitioner Use Only) Attention Patients / Veterans: If you have questions or concerns about these test results, please contact your ordering provider or primary care team. 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 Right anterior aspect just proximal of mid-point COMPARISON: Right knee radiograph 06/04/2018 TECHNIQUE: 2 views of the right knee, 4 views of the right tibia/fibula, and 3 views of the right ankle, submitted to the CT National Teleradiology Program (NTP) for interpretation. FINDINGS: [...] and ankle. READING PHYSICIAN: Rogelio Alford MD -[id number] 01/01/2024 18:34 PDT [facility] National Teleradiology Program [phone] (For Medical Practitioner Use Only) Attention Patients / Veterans: If you have questions or concerns about these test results, please contact your ordering provider or primary care team. 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 Right anterior aspect just proximal of mid-point COMPARISON: Right knee radiograph 06/04/2018 TECHNIQUE: 2 views of the right knee, 4 views of the right tibia/fibula, and 3 views of the right ankle, submitted to the CT National Teleradiology Program (NTP) for interpretation. FINDINGS: [...] and ankle. READING PHYSICIAN: Rogelio Alford MD -[id number] 01/01/2024 18:34 PDT [facility] National Teleradiology Program [phone] (For Medical Practitioner Use Only) Attention Patients / Veterans: If you have questions or concerns about these test results, please contact your ordering provider or primary care team. Primary Interpreting Staff: RADIOLOGY,OUTSIDE SERVICE, Staff Physician / RADIOLOGY,OUTSIDE SERVICE [facility] Encounter Notes: All associated encounter notes This section contains the clinical notes associated to the Encounter. Date/Time Encounter Note(s) Provider Source December 12, 2023 01:00 PM OCCUPATIONAL MEDIC INE CONSULT: LOCAL TITLE: OT CONSULT STL STANDARD TITLE: OCCUPATIONAL MEDICINE CONSULT DATE OF NOTE: DECEMBER 12, 2023@13:00 ENTRY DATE: DECEMBER 12, 2023@15:44:29 AUTHOR: GARLAND VILLEDA: URGENCY: STATUS: COMPLETED INITIAL OT HOME EVALUATION NOTE (IN-PERSON) Diagnosis:Ataxic Gait(ICD-10-CM R26.0) Requesting Provider:SHELIA MOREIRA Reason for request:Home Access (ramps & handrails), Bathroom Modifications (grab bars, roll in shower, HISA vicky, shower chairs, raised toilet seats, etc.), Adaptive Self-Care Equipment (for bathing, dressing, showering, toileting, etc.), Stairglide - only provided to allow access to a bedroom, bathroom, or kitchen IF none exist on the accessible level, Other: fill in text below:chair lift Precautions: fall risk with history of multiple falls Date of Evaluation:12/12/23 Visit #:1 Total Treatment Time: 13:00-14:00 OT EVAL(mod 53275):30 minutes Self care 98710: minutes Pt ed 30 mins individual 88175:30 minutes Appointment was conducted via face to face visit this date. Patient's address during the session:[address] [place] [id number] Past Medical History: 1) Abnormal results of liver function studies 2) Diverticulitis 3) Erectile dysfunction 4) Obesity 5) Chest pain 6) Sensory-neural hearing loss 7) Back pain (SNOMED CT [id number]) 8) Benign hypertension (SNOMED CT [id number]) 9) Convulsion 10) Male hypogonadism 11) Conversion [...] Fibromyalgia 29) Exposure to potentially hazardous substance SUBJECTIVE: Cem reports he has been having multiple falls per day. Cem states he owns a rollator walker, but it is too wide to use within his home. Cem states he would like to be able to participate more in home managment tasks. Cem's personal goal: Obtain stair glide; HISA for 1st floor laundry Family/Caregiver goal: Increase safety in home Pain: Sitting at rest: 9/10 generalized (Pain Scale: 0=no pain, 10=unbearable pain) SENSORY AND COMMUNICATION: Sensation: numbness in feet [x]Dressed appropriately. -Communication: [x]Normal []Aphasia []non-verbal []Able to communicate needs -Vision: []Normal []Impaired []Blind [x]Wears glasses -Hearing: []Normal [x] Impaired [] Wears hearing-aid FUNCTIONAL ABILITY: PER SELF-REPORT -Eating: [x]I []MOD I []SBA []NEEDS ASSISTANCE -Grooming:[x]I []MOD I []SBA []NEEDS ASSISTANCE -Bathing: []I []MOD I []SBA [x]NEEDS ASSISTANCE -UE Dressing: []I []MOD I []SBA [x]NEEDS ASSISTANCE -LE Dressing:[]I []MOD I []SBA [x]NEEDS ASSISTANCE -Toileting: []I []MOD I [x]SBA []NEEDS ASSISTANCE -Transfer - Bed, Chair, W/C: []I []MOD I []SBA [x]NEEDS ASSISTANCE -Transfer - Toilet: []I []MOD I [x]SBA []NEEDS ASSISTANCE -Transfer - Tub, Shower: []I []MOD I []SBA [x]NEEDS ASSISTANCE IADLS/HOME MGMT SKILLS: -Meal Prep: [](I) []dependent [x]provided by:dtr/ -Laundry: [](I) []dependent [x]provided by:/dtr -Transportation: [](I) [x]dependent []provided by: -Medication Mgmt: [](I) [x]dependent []provided by: [x]Description for med mgmt: assist using pillbox MOBILITY: (I) on level surfaces []without device [x]cane []wheeled walker [x] rollator []w/c []non-ambulatory -Transfers:[]I []MOD I [x]SBA []NEEDS ASSISTANCE -Home Mobility: []I []MOD I [x]SBA []NEEDS ASSISTANCE -Community Mobility: []I []MOD I []SBA [x]NEEDS ASSISTANCE -Stairs: []I []MOD I []SBA [x]NEEDS ASSISTANCE -Footwear at time of visit: []none [x]non-skid Educated in need to wear appropriate non-skid footwear SKIN INTEGRITY/POSITIONING:[x]in tact []sores []bruising *Instructed in importance of proper positioning and need for frequent repositioning FALL RISK ASSESSMENTS: -FALL HISTORY:[] none #~3-4/day in last 3 months # last 6 months comments: reports ~18 falls down 2nd floor stairs [place] FALL RISK ASSESSMENT: -History of falling (within 3 months): 25 = Yes 0 = No -Secondary diagnosis contributing to fallin = Yes 0= No -Ambulatory aid used during gait: 30= Furniture 15 = crutches/cane/walker 0 = None/bed rest/wheelchair -IV therapy: 20 = Yes 0 = No -Gait/transfer characteristics: 20 = impaired gait/transfer 10 = weak 0 = normal/bed rest/immobile -Mental status: 15 = forgets limitations on walking/transferring 0 = Oriented to own ability Total Score: ____80 0-24 = Low Fall Risk, 25-44 = Moderate Fall Risk, 45 and higher = High Fall risk [x]Cognition: A&Ox3-4. Pleasant and cooperative. Followed directions well. []Impaired safety/judgement [x]Memory impaired per Vet report, uses compensatory strategies/relational cues OBJECTIVE: Pt seen this date for home eval to assess home safety and equipment needs. HOME ENVIRONMENT: [x] own [] rental Identification of who is present during eval: [x] spouse [x] child [] Caregiver [] other: -Lives with: [] alone [x] spouse [x] child: daughter [] friend [] other -Type of Dwelling: [] single level with/without basement [x] 2-story with basement [] split level [] modular home with basement [] trailer [] apt [] senior citizen apt [] condo -Parking: Vehicle to access is located: [] Street [] Parking Lot [x] Driveway [] Garage [] Other -Walkway to door: EXTERIOR OF HOME: pathway is: [x]level []uneven []obscured -Entry: Main door being used to enter/exit home: [x]front []side []garage []backdoor (approximate how many feet:_30__) Exterior Steps to doorway #_3_+ 1__ Rails[]yes [x]no Condition of stairs: [x] good condition [] repair needed [] rail loose Ramp available: []Y [x]N []NA Elevator available: []Y [x]N []NA Can pt safely evacuate house in case of emergency: [x]yes- with assistance []no INTERIOR STEPS OF HOME: Overall #__16/14___ of Interior Steps that will be used by the [place]: -To 2nd floor/Bedroom/Bathroom: #_16____ Rails [x]yes []no -To Basement(if used by pt.)#__14___ Rails [x]yes []no -To other level: # Rails []yes []no Sam: []carpeting [x]tile bath []laminate [x]hardwood []area rugs Condition of home: [] clean/neat [x] cluttered [] dirty [] in need of repair [] uneven Traffic areas free from electrical/telephone cords/oxygen tubing: [x]yes [] no Exits and passageways kept clear: [x]yes []no Adequate lighting: [x]yes []no Animals in the home: [x]yes []no 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 BATHROOMS: -Bathroom #1 Location used by patient: []main [x]2nd floor []basement []hallway [x] master Bathing []tub [x]tub/shower combo [x]curtain []glass doors []walk/roll-in shower with []curtain []sliding doors []Standing tub/shower [x]shower chair []tub bench [x]HH shower [x]grab bars []tub rail []Nonskid floor or mat Toileting []Regular height [x]Handicapped height []toilet rails []raised toilet seat []BSC []regular round seat []oval/elongated seat Nightlight: []yes [x]no Style of sink in bathroom used: [x]Vanity []Pedestal Support use of ambulatory device: []yes [x]no -Bathroom #2 Location used by patient: [x]main []2nd floor []basement [x]hallway [] master Bathing []tub []tub/shower combo []curtain []glass doors [x]walk/roll-in shower with []curtain [x]sliding doors []Standing tub/shower [x]shower chair []tub bench [x]HH shower [x]grab bars []tub rail []Nonskid floor or mat Toileting []Regular height [x]Handicapped height []toilet rails []raised toilet seat []BSC []regular round seat []oval/elongated seat Nightlight: []yes [x]no Style of sink in bathroom used: [x]Vanity []Pedestal Support use of ambulatory device: []yes [x]no BEDROOM: []main [x]2nd floor Condition: [x]cluttered [] clean Sam:[]carpet [x]hardwood []laminate []ceramic []vinyl Rug: [x]none []area []throw Bed: [][facility] adjustable base [][place] [][facility] Nightlight: []yes [x]no Clothing storage: [x]closet-hanging []floor items [x][place] style ADDITIONAL RISK FACTORS: physical impairments, cognitive impairment, sensory deficits, orthostatic hypotension, incontinence, visual impairment, hearing impairment, environment hazards, pain affecting function, poly-pharmacy (9+ meds), low vitamin D level, weight loss, choosing not to use ambulatory assistive device, multiple medical problems FALL RISK PRECAUTIONS/INTERVENTIONS INCLUDE: encourage non-slip footwear, night light and/or bathroom light left on, environmental hazards reduced as much as possible, individualize equipment to patient needs, exercise program, hip protectors, bed/chair/door alarms, encourage to wear medical alert device or keep phone within reach, orthostatic precautions, patient to use assistive device/patient to be accompanied by family/caregiver when transferring/ambulating, education on home safety/fall prevention techniques, bathroom safety EQUIPMENT CURRENTLY IN HOME: [] ramp [] w/c []manual []power [] transport chair [x] walker []standard []2 wheeled [x]seated [x] cane [x]straight []SBQC []LBQC [x] scooter [] ramsey/ceiling lift [] hospital bed [] overbed trapeze [x] bedside commode [] toilet rails [] raised toilet seat [x] shower chair [x] grab bar(s) and identify location: [] transfer tub bench [x] HH shower [x] tub-mounted grab bar [] acreage reporter [] LH shoehorn [] dressing stick [x] sock aid [] long sponge [] bed cane/rail [] lift chair [] medical alert [] other EQUIPMENT ORDERED ___Tub Bench ___Shower Chair ___Grab Bars 16 long ___Tub Rail ___Safety Strips ___Hand Held Shower ___Diverter Valve ___Versa Frame ___Raised Toilet Seat ___Commode ___Sponge ___Reacher ___Sock Aid ___Button Hook ___S[place] ___Dressing Stick _x__Weighted Utensils ___Large Card Tender Utensils ___Lipped Plate ___Dycem ___Rocker Knife ___Lap Tray ___Arm Trough ___Walker Basket ___W/C Gloves ___W/C Cup Mcadams ___Thermal Mug ___Hand [place] ___Rop-Kid-Ayf ___Theraputty ___Medical Alert x Toilet surround ___Bed Cane _x__Other: Stair glide (2nd floor), bidet, 2ww _x__HISA vicky: Recommend relocation of laundry room hookups to main level of home Rationale: states he would like to participate in laundry managment, but is unable due to laudnry room in basement. Vet states that moving laundry hookups to main level will positively impact his ability to participate in contribution of household managment and improve his mental well-being. Does the have a caregiver who is interested in being connected with the REACH Caregiver Support Program: Not addressed at this time If so, caregiver was provided with the following contact information: Contact: Yamielth Kulkarni LCSW [phone] Email: [email or web address] Patient education Red[place] was ready to learn and demonstrated an understanding of equipment issued. [place] given 1:1 instruction in equipment issued and/or home exercise program as noted above. PT/FAMILY EDUCATION AND RECOMMENDATIONS: [x]Home safety and fall prevention techniques [x]Bathroom safety [x]Use of equipment []Correct use of cane/walker []Advised to decrease clutter to reduce the risk of tripping or slipping []Recommend removing or securing rugs [x]Energy conservation/work simplification techniques []Pressure reduction/Proper positioning ASSESSMENT: Pt is 53 year old male with dx of , referred for HSE due to increased frequency of falls including on stairs to 2nd floor. Vet is able to complete ADLs/functional mobility with SBA to assist from family who licensed clinical social worker. Pt has family that assists as needed. Pt is a fall risk. Pt/family was educated in DME/AE available and ordered appropriate equipment. Pt/family was also educated in home safety and fall prevention techniques. Pt/family verbalized/demonstrated understanding of equipment use and education. Will return for 1 f/u visit if equipment was ordered for training and safety with vet in home. Barriers to goals: None Occupational Profile and History [] Brief (low) x Expanded (moderate) [] Extensive (high) Performance deficits identified: [] ADLs [] IADLs [x] Functional mobility [] Range of motion [] Muscle Strength [] Functional Endurance [] Functional Balance [] Fine motor coordination [x] Adaptive equipment needs [] Cognition [] Vision [] Coping skills [] Interpersonal interaction [] Impulse control [] Other (please specify: ) Padilla: 1-3 performance deficits = Low complexity 3-5 performance deficits = moderate complexity 5 or more performance deficits = high complexity Level of Clinical Decision Making [] problem-focused assessment [x] detailed assessment [] comprehensive assessment --Therefore, from the findings above in Veterans Occupational Profile/History, Performance Deficits and level of clinical decision making, the OT Evaluation level of complexity of this patient was: [] Low [x] Moderate [] High PLAN: Redwood to be seen by OT 1 F/U visit to be trained in use for the above mentioned items and will be trained in proper use and safety of equipment. Discussed plan of care with /family and /family was agreeable to plan. Continued skilled occupational therapy as below to address: Treatment Plan: _x__ADLs ___UE AROM/AAROM/PROM __x_Transfers ___Cognition ___Coordination ___Endurance ___Gross/Fine Motor ___Home Management ___Visual Perception ___Standing Act. ___UE Strengthening ___Sensation/Compensation ___Visual Skills ___Facilitation ___Inhibition _x__Adaptive equipment Assessment SHORT TERM GOALS = BOX LIDDER GOALS: To be achieved in (1-2 visit). 1. Demo use of any needed AE/DME with Mod I for ADL. 2. Demo Understanding of [facility] vicky application process. Date of Initiation of Treatment Plan: 12/12/23 Anticipated Discharge of Treatment Plan: 2 visits PLAN: D/C with no follow up after one visit secondary to achieving goal this visit. Redwood or caregiver will understand safe use of equipment listed above. Redwood will have verbal and written instructions on use of equipment. Redwood to be ordered equipment and sent to his/her home. No further follow up at this time. *Education* Learning Assessment: Patient/Caregiver appeared ready for instruction (good eye contact, appropriate questions, active participation, etc.) Person(s) who received education: Patient Family Member dtr Education Topic/Teaching Needs: Activities of Daily Living (ADLs) safety for ADL adn home managment Methods used included: One-on-one: discussion Teaching outcomes: Good level of understanding /los/ GARLAND VILLEDA Occupational Therapist Signed: 12/12/2023 16:35 GARLAND VILLEDA [facility]
--- OUTSIDE RECORDS SUMMARY | 2024-11-30 15:30 | XMS_ITS | Encounter Summary ---
Author Name [facility] [place] Organization [facility] [place] Address [address] [place] [address] Care Team Providers Care Flat Machine Cutter Name Role Phone YONATHAN CORONEL Primary Care Provider OMEGA Bethea Unavailable Unavailable Selected Encounter This section includes the information on record at [place] for the Encounter. Date/Time Encounter Type Encounter Description Reason Provider Source Oct 25, 2024 10:30 AM OFFICE O/P EST MOD 30 MIN [facility]PATOLOGY CLINIC ICD-10-CM F10.188 Alcohol abuse with other alcohol-induce d disorder FRANDY SOLOMON Yumi Encounter Template Text not used by [place] Assessments - Encounter Diagnoses This section includes the primary and secondary diagnoses documented for the Encounter. Date/Time Primary/Secondary Diagnosis Diagnosis Name Provider Source Oct 25, 2024 11:19 AM PRIMARY Alcohol abuse with other alcohol-induced disorder MARCIA SOLOMON [facility] Oct 25, 2024 11:19 AM SECONDARY Hyperlipidemia, unspecified MARCIA SOLOMON [facility] Oct 25, 2024 11:19 AM SECONDARY Nonalcoholic steatohepatitis (QUIJANO) MARCIA SOLOMON [facility] Plan of Treatment: Future Appointments [...] 20 appointments. The data comes from all [facility]. Appointment Date/Time Appointment Type Appointme nt Facility Name Nov 01, 2024 01:00 PM AMBULATORY - SURGERY [facility] Nov 13, 2024 12:00 PM AMBULATORY - NONE [facility] Nov 13, 2024 02:00 PM AMBULATORY - MEDICINE [facility] November 29, 2024 11:15 AM AMBULATORY - REHAB MEDICIN E [facility] December 16, 2024 02:30 PM AMBULATORY - MEDICINE [facility] December 17, 2024 02:00 PM AMBULATORY - PSYCHIATRY [facility] Jan 13, 2025 11:15 AM AMBULATORY - MEDICINE [facility] Feb 13, 2025 02:00 PM AMBULATORY - MEDICINE [facility] Mar 24, 2025 10:30 AM AMBULATORY - NONE [facility] Apr 11, 2025 11:00 AM AMBULATORY - MEDICINE [facility] Active, Pending, and Scheduled Orders This section includes a listing of several types of active, pending, and scheduled orders, including clinic medications orders, diagnostic test orders, procedure orders and consult orders; where the start date of the order is 45 days before the date of the Encounter or 45 days after the date of theEncounter. The data comes from all [facility]. Test Date/Time Test Type Test Details Facility Name Oct 07, 2024 11:59 AM Consult Order [facility] Cons Vacuum Metalizing Supervisor's Choice [facility] Oct 07, 2024 11:59 AM Consult Order [facility] Cons Vacuum Metalizing Supervisor's [facility] Lab Results: +/- 30 days of [...] Type Comment Nov 13, 2024 02:35 PM [facility] HGA1C BLOOD Specimen Type: BLOOD No comment entered. Ordering Provider: RAKEL TORRES Report Released Date/Time: Nov 13, 2024 02:28 PM Reporting Lab: [facility] [address] [facility] [phone] Performing Lab: [facility] [address] [place] [phone] HGA1C 7.5 H 4.0-6.0 Nov 13, 2024 02:35 PM [facility] VITAMIN D, 25-HYDROXY SERUM Specimen Type: SE RUM No comment entered. Ordering Provider: RAKEL TORRES Report Released Date/Time: Nov 13, 2024 02:33 PM Reporting Lab: [address] [address] Performing Lab: [facility] [address] [facility] [phone] VITAMIN D, 25-HYDROXY 35.4 ng/mL 30-96 Oct 25, 2024 11:20 AM [facility] PT/INR NEW (STL-MA) PLASMA Specimen Type: PLAS MA No comment entered. Ordering Provider: NIKA SOLOMON Report Released Date/Time: Oct 25, 2024 10:53 AM Reporting Lab: [address] [address] Performing Lab: [facility] [address] [place] [phone] PROTIME 12.5 s 9.4-12.5 INR VALUE 1.1 {INR} Oct 25, 2024 11:20 AM [facility] CONJ. BILIRUBIN PLASMA Specimen Type: PLASM A Comment: LDL calculation invalid when Triglyceride exceeds 250 mg/dl Ordering Provider: NIKA SOLOMON Report Released Date/Time: Oct 25, 2024 10:53 AM Reporting Lab: [facility] [address] [place] [phone] Performing Lab: [address] [place] [address] CONJ. BILIRUBIN 0.2 mg/dL 0-0.5 Oct 25, 2024 11:20 AM [facility] ALPHA-FETOPROTEIN(STL-PB) PLASMA Specimen Type : PLASMA No comment entered. Ordering Provider: NIKA SOLOMON Report Released Date/Time: Oct 25, 2024 10:53 AM Reporting Lab: [address] [phone] Performing Lab: [address] [address] ALPHA-FETOPROTEIN(STL-PB) <2.00 ng/mL L 1- 8.78 Oct 25, 2024 11:20 AM [facility] LIPID PANEL (STL) PLASMA Specimen Type: PLASM A Comment: LDL calculation invalid when Triglyceride exceeds 250 mg/dl Ordering Provider: NIKA SOLOMON Report Released Date/Time: Oct 25, 2024 10:53 AM Reporting Lab: [address] [phone] Performing Lab: [address] [phone] CHOLESTEROL 158 mg/dL 0-200 TRIGLYCERIDE 401 mg/dL H 0-150 DIRECT LDL 73 mg/dL L >100 CALCULATED LDL comment mg/dL HDL(New) 38 mg/dL L >40 Oct 25, 2024 11:20 AM [facility] COMPREHENSIVE METABOLIC PANEL PLASMA Specimen Type: PLASMA Comment: LDL calculation invalid when Triglyceride exceeds 250 mg/dl Ordering Provider: NIKA SOLOMON Report Released Date/Time: Oct 25, 2024 10:53 AM Reporting Lab: [address] [address] Performing Lab: [address] [phone] CREATININE 0.70 mg/dL 0.7-1.3 UREA NITROGEN 13.9 [...] 108.1 >60 Oct 25, 2024 11:20 AM [facility] CBC BLOOD Specimen Type: BLOOD No comment entered. Ordering Provider: NIKA SOLOMON Report Released Date/Time: Oct 25, 2024 10:53 AM Reporting Lab: [facility] [address] [facility] [phone] Performing Lab: [facility] [address] [facility] [phone] WBC 5.4 10*3/uL 3.6-11.2 RBC 5.06 10*6/uL [...] Pain Height Weight Body Mass Index Source Oct 25, 2024 10:32 AM 97.1 71 128/77 16 97 9 276 38 [facility] Social History: Smoking Status [...] ago,started smoking at 14yrs,smoked 2packs a day [facility] Tobacco Use History This section includes a history of the smoking, or tobacco-related health factors, that were collected on or before the date of the Encounter. The data comes from the [place] facility where the Encounter took place. Date/Time Smoking Status/Tobacco Use Comment F acility Mar 07, 2000 12:35 PM CURRENT NON-TOBACC O USER-HX OF USE [facility] Advance Directives: All historical and current Section Date Range: From patient's date of to the date document was created. This section includes ALL of a patient's completed or amended [place] Advance and Rescinded Directives. The entries below indicate that a directive exists for the patient, but an actual copy is not included with this document. The data comes from all [place] facilities. Date Advance Directives Provider Source Oct 21, 2022 FRANKLIN KO [facility] Sep 23, 2004 ADVANCE DIRECTIVE CJ RUDOLPH [facility] May 24, 2004 ADVANCE DIRECTIVE MITCH ZEE [facility] May 24, 2000 ADVANCE DIRECTIVE MICHELE CENTENO [facility] Nov 11, 1996 ADVANCE DIRECTIVE MAGGIE DRAKE [facility] December 08, 1995 ADVANCE DIRECTIVE KI SANTOYO [facility] Radiology Reports: +/- 30 days [...] ABDOMEN COMPLET E W/BLOOD FLOW DOPPLER (STL): JC HAAS [id number] -[id number] M Exm Date: NOV 13, 2024@12:14 Req Phys: NIKA SOLOMON Loc: [facility] (Req'g Lo Img Loc: [facility]ULTR[facility] [place] Service: [address] [address] (Case [id number] COMPLETE) US ABDOMEN LTD, SINGLE ORG OR CHRISTIN(US Detailed) CPT:76561 Reason for Study: HCC surveillance (Case [id number] COMPLETE) US BLOOD FLOW ABD/RENAL DOPPLER ((US Detailed) CPT:94699 Clinical History: Report Status: Verified Date Reported: NOV 13, 2024 Date Verified: NOV 13, 2024 Branch Maker E-Sig:/ES/RAFAEL IWLDER Report: Case [id number], [id number]. US ABDOMEN LTD, SINGLE ORG OR QUADRANT, [...] Primary Interpreting Staff: RAFAEL WILDER, Diagnostic Radiologist (Branch Maker) Primary Interpreting Resident: CHRISTINA MALAGON, Vascular & Interventional Pump Rebuilder /RAFAEL PALOMINO [facility] Encounter Notes: All associated encounter notes This section contains the clinical notes associated to the Encounter. Date/Time Encounter Note(s) Provider Source Nov 15, 2024 12:59 PM ADDENDUM: LOCAL TITLE: Addendum STANDARD TITLE: ADDENDUM DATE OF NOTE: NOV 15, 2024@12:59:42 ENTRY DATE: NOV 15, 2024@12:59:44 AUTHOR: NIKA SOLOMON EXP COSIGNER: URGENCY: STATUS: COMPLETED Liver ultrasound (October,) Liver: The liver echogenicity is diffusely increased with coarsening liver echotexture. The liver surface is smooth. These findings are consistent with hepatic steatosis/chronic liver disease. With the limitations of the study, there was no evidence of HCC. Patient has no ascites. Liver venous inflow and outflow are normal ultrasound. Gallbladder, intra and extrahepatic biliary ducts are normal. Plan: While there is contradiction between the latest FibroScan and the liver ultrasounds, liver tests are against the impression of cirrhosis. For the time being I will continue to follow Mr. De Luna in my clinic. Pending evolution we will decide if he needs a new FibroScan or even a liver biopsy. /es/ NIKA SOLOMON Staff Physician Signed: 11/15/2024 13:11 Receipt Acknowledged By: 11/21/2024 12:41 /es/ LAXMI LANGFORD RN HEPATOLOGY WEIGHER OPERATOR --- Original Document --- 10/25/24 GASTROENTEROLOGY OUTPATIENT FOLLOW UP STL: HPI: Jc is a 54-year-old gentleman that came with his daughter for a follow-up visit. 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 Patient has been alcohol abstinent for more than a decade (only occasionally he drinks a glass of wine and special occasions). He remains with overweight, poorly controlled diabetes and hyperlipidemia. He takes medication for systemic hypertension and his blood pressure is well-controlled. Imaging studies have been contradictory. While his liver ultrasound shows fatty infiltration but no evidence to suggest advanced fibrosis or surface nodularity, his latest FibroScan showed a kilopascal score equivalent to stage IV. Blood work shows a long history (about 30 years) of intermittently elevated liver enzymes but without protein synthesis abnormalities or thrombocytopenia. Patient denies any signs or symptoms of advanced liver disease, cirrhosis or decompensation. 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 During his appointment today he had at least 2 episodes. After the seizure he looks somewhat confused and with mild dysarthria. By the time he left my clinic he was feeling well. He left in a wheelchair. ROS: Pseudoseizures. PHYSICIAL EXAMINATION: Vitals: BP 128/77 (10/25/2024 10:32) HR 71 (10/25/2024 10:32) RR 16 (10/25/2024 10:32) WT Measurement DT WEIGHT LB(KG)[BMI] 10/25/2024 10:32 276(125.19)[38*] 09/12/2024 14:35 277.8(126.01)[38*] 08/02/2024 14:14 282.3(128.05)[38*] BMI 37.5 General: well nourished, well developed ambulatory patient Eyes: anicteric with normal reflexes. Oral mucosa: moist, oropharynx clear. Normal dentition. Neck: supple, no JVD or LAD Chest: clear to auscultation bilaterally. Heart RRR. Abdomen: soft, non-tender, non-distended, with no organomegaly or ascites. Normal peristalsis. Extremities: normal pulses and reflexes. No muscle wasting. Neuro: intact Skin: no rashes, no telangiectasia. No palmar erythema. LABS: CBC: WBC 7.3 10*3/uL 04/08/2024 15:28 RBC [...] 15:28 BASOPHILS, ABSOLUTE 0.03 10*3/uL 04/08/2024 15:28 SGOT: 28 U/L (02/23/24 11:19) SGPT: 38 U/L (02/23/24 11:19) Alk Phos: ALKALINE PHOSPHATASE 105 U/L 02/23/2024 11:19 T.Bili TOTAL BILIRUBIN 0.5 mg/dL 02/23/2024 11:19 Collection DT Specimen Test Name Result Units [...] URIC ACID 6 mg/dl 3.5 - 7.2 13.7 mg/dL (04/08/24 15:28) CREATININE 1.59 H mg/dL 04/08/2024 15:28 CREATININE 1.59 H mg/dL 04/08/2024 15:28 EGFR (CKD-EPI 2020) 50.6 04/08/2024 15:28 TSH: No TSH (1YR) EO data found PT:12.5 sec (04/08/24 15:28) INR: INR VALUE 1.1 INR 04/08/2024 15:28 PROTIME 12.5 sec 04/08/2024 15:28 1.1 INR (04/08/24 15:28) Na+: SODIUM 139 mEq/L 04/08/2024 15:28 K+: POTASSIUM 4.3 mEq/L 04/08/2024 15:28 Cl-: 104 mEq/L (04/08/24 15:28) CO2: CARBON DIOXIDE 22 mEq/L 04/08/2024 15:28 BUN: 13.7 mg/dL (04/08/24 15:28) Cr: CREATININE 1.59 H mg/dL 04/08/2024 15:28 Glc: GLUCOSE 234 H mg/dL 04/08/2024 15:28 Prt: PROTEIN 7.6 g/dL 02/23/2024 11:19 Albumin: ALBUMIN 4.1 g/dL 02/23/2024 11:19 RADIOLOGY: Impression for US ABDOMEN LTD, SINGLE ORG OR QUADRANT, 01/15/24, case [id number] 1. Hepatic steatosis. 2. No evidence of cholelithiasis or cholecystitis. Report dictated by Lucien Webster (presidential support specialist) I, Jama Luna, have reviewed the images [...] ABDOMEN W CONT MRI ABDOMEN W/O&W CONT Assessment/Plan: Mr. Haas is a 54-year-old gentleman with Met-ALD. 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 Today I am ordering new blood work to reassess his case. There is some discrepancy between his liver ultrasound, FibroScan and laboratory tests. While the liver ultrasound and laboratory tests are against the diagnosis of cirrhosis, his latest FibroScan showed stage IV fibrosis (cirrhosis). I am ordering blood work today. He will also get a liver ultrasound in the near future. Probably with his next appointment he will need a FibroScan. I discussed with both the patient and his daughter the need of light habit changes including weight loss and in addition, he should have a better control of his diabetes and hyperlipidemia. Please do not hesitate to contact me with any questions or concerns regarding my impression and plan. /los/ NIKA SOLOMON Staff Physician Signed: 10/25/2024 11:20 Receipt Acknowledged By: 10/25/2024 16:15 /los/ LAXMI LANGFORD RN HEPATOLOGY WEIGHER OPERATOR 10/25/2024 11:38 /es/ OMEGA ELI, DNP, AUTO BRAKE MECHANIC-C, HAND SHAKER NURSE PRACTITIONER RESIDENT 10/25/2024 14:18 /es/ Bud Murillo, PhD, GNP-BC, ANP-BC Nurse Practitioner for YONATHAN CORONEL 10/25/2024 ADDENDUM STATUS: COMPLETED Jc had laboratory tests after his clinic visit with me. Results show a very high triglyceride level at 400, hyperglycemia due to decompensated diabetes and mild elevation of AST. Other tests were fundamentally normal including CBC, INR and alpha-fetoprotein. I sent my office note to his PCPs. Patient will need to lose weight, control his diabetes and hyperlipidemia. No specific changes in his liver follow-up and care other than those expressed in the clinic visit note. /los/ NIKA SOLOMON Staff Physician Signed: 10/25/2024 12:51 Receipt Acknowledged By: 10/29/2024 10:00 /los/ LAXMI LANGFORD RN HEPATOLOGY WEIGHER OPERATOR 10/29/2024 ADDENDUM STATUS: COMPLETED I called and spoke to Mrs Haas to review Mr Haas's 10/[address] Solomon's review. Notably pt's triglycerides were 401, while on Ezetimibe. Mr Haas dies not follow a diabetic diet per mr Haas, and has portion control issues. I let her know I would mail him a dietary guidleine sheet for people with high triglycerides, as Mr haas has met with dieticians/sole splitter many times in the past. I asked Mrs Haas to follow up w/ pt's PCP ERNESTO Coronel to address further. I also let Mrs Haas know that Dr Solomon ordered an US abd/Liver, and I scheduled for 11/13/24 at noon, prior to pt's 14:00 Endocrinology appt--NPO after MN. Mrs Haas said that time is fine, as he will sleep until 11:00 anyway . Mrs Haas voiced understanding/agreement to what we discussed. /pamela LANGFORD RN HEPATOLOGY WEIGHER OPERATOR Signed: 10/29/2024 10:46 NIKA SOLOMON [facility] Oct 25, 2024 12:47 PM ADDENDUM: LOCAL TITLE: Addendum STANDARD TITLE: ADDENDUM DATE OF NOTE: OCT 25, 2024@12:47:20 ENTRY DATE: OCT 25, 2024@12:47:21 AUTHOR: NIKA SOLOMON EXP COSIGNER: URGENCY: STATUS: KIRSTIE Greene had laboratory tests after his clinic visit with me. Results show a very high triglyceride level at 400, hyperglycemia due to decompensated diabetes and mild elevation of AST. Other tests were fundamentally normal including CBC, INR and alpha-fetoprotein. I sent my office note to his PCPs. Patient will need to lose weight, control his diabetes and hyperlipidemia. No specific changes in his liver follow-up and care other than those expressed in the clinic visit note. /los/ NIKA SOLOMON Staff Physician Signed: 10/25/2024 12:51 Receipt Acknowledged By: 10/29/2024 10:00 /los/ LAXMI LANGFORD RN HEPATOLOGY WEIGHER OPERATOR --- Original Document --- 10/25/24 GASTROENTEROLOGY OUTPATIENT FOLLOW UP STL: HPI: Jc is a 54-year-old gentleman that came with his daughter for a follow-up visit. 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 Patient has been alcohol abstinent for more than a decade (only occasionally he drinks a glass of wine and special occasions). He remains with overweight, poorly controlled diabetes and hyperlipidemia. He takes medication for systemic hypertension and his blood pressure is well-controlled. Imaging studies have been contradictory. While his liver ultrasound shows fatty infiltration but no evidence to suggest advanced fibrosis or surface nodularity, his latest FibroScan showed a kilopascal score equivalent to stage IV. Blood work shows a long history (about 30 years) of intermittently elevated liver enzymes but without protein synthesis abnormalities or thrombocytopenia. Patient denies any signs or symptoms of advanced liver disease, cirrhosis or decompensation. 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 During his appointment today he had at least 2 episodes. After the seizure he looks somewhat confused and with mild dysarthria. By the time he left my clinic he was feeling well. He left in a wheelchair. ROS: Pseudoseizures. PHYSICIAL EXAMINATION: Vitals: BP 128/77 (10/25/2024 10:32) HR 71 (10/25/2024 10:32) RR 16 (10/25/2024 10:32) WT Measurement DT WEIGHT LB(KG)[BMI] 10/25/2024 10:32 276(125.19)[38*] 09/12/2024 14:35 277.8(126.01)[38*] 08/02/2024 14:14 282.3(128.05)[38*] BMI 37.5 General: well nourished, well developed ambulatory patient Eyes: anicteric with normal reflexes. Oral mucosa: moist, oropharynx clear. Normal dentition. Neck: supple, no JVD or LAD Chest: clear to auscultation bilaterally. Heart RRR. Abdomen: soft, non-tender, non-distended, with no organomegaly or ascites. Normal peristalsis. Extremities: normal pulses and reflexes. No muscle wasting. Neuro: intact Skin: no rashes, no telangiectasia. No palmar erythema. LABS: CBC: WBC 7.3 10*3/uL 04/08/2024 15:28 RBC [...] 15:28 BASOPHILS, ABSOLUTE 0.03 10*3/uL 04/08/2024 15:28 SGOT: 28 U/L (02/23/24 11:19) SGPT: 38 U/L (02/23/24 11:19) Alk Phos: ALKALINE PHOSPHATASE 105 U/L 02/23/2024 11:19 T.Bili TOTAL BILIRUBIN 0.5 mg/dL 02/23/2024 11:19 Collection DT Specimen Test Name Result Units [...] URIC ACID 6 mg/dl 3.5 - 7.2 13.7 mg/dL (04/08/24 15:28) CREATININE 1.59 H mg/dL 04/08/2024 15:28 CREATININE 1.59 H mg/dL 04/08/2024 15:28 EGFR (CKD-EPI 2020) 50.6 04/08/2024 15:28 TSH: No TSH (1YR) EO data found PT:12.5 sec (04/08/24 15:28) INR: INR VALUE 1.1 INR 04/08/2024 15:28 PROTIME 12.5 sec 04/08/2024 15:28 1.1 INR (04/08/24 15:28) Na+: SODIUM 139 mEq/L 04/08/2024 15:28 K+: POTASSIUM 4.3 mEq/L 04/08/2024 15:28 Cl-: 104 mEq/L (04/08/24 15:28) CO2: CARBON DIOXIDE 22 mEq/L 04/08/2024 15:28 BUN: 13.7 mg/dL (04/08/24 15:28) Cr: CREATININE 1.59 H mg/dL 04/08/2024 15:28 Glc: GLUCOSE 234 H mg/dL 04/08/2024 15:28 Prt: PROTEIN 7.6 g/dL 02/23/2024 11:19 Albumin: ALBUMIN 4.1 g/dL 02/23/2024 11:19 RADIOLOGY: Impression for US ABDOMEN LTD, SINGLE ORG OR QUADRANT, 01/15/24, case [id number] 1. Hepatic steatosis. 2. No evidence of cholelithiasis or cholecystitis. Report dictated by Lucien Webster (presidential support specialist) I, Jama Luna, have reviewed the images [...] ABDOMEN W CONT MRI ABDOMEN W/O&W CONT Assessment/Plan: Mr. Haas is a 54-year-old gentleman with Met-ALD. 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 Today I am ordering new blood work to reassess his case. There is some discrepancy between his liver ultrasound, FibroScan and laboratory tests. While the liver ultrasound and laboratory tests are against the diagnosis of cirrhosis, his latest FibroScan showed stage IV fibrosis (cirrhosis). I am ordering blood work today. He will also get a liver ultrasound in the near future. Probably with his next appointment he will need a FibroScan. I discussed with both the patient and his daughter the need of light habit changes including weight loss and in addition, he should have a better control of his diabetes and hyperlipidemia. Please do not hesitate to contact me with any questions or concerns regarding my impression and plan. /los/ NIKA SOLOMON Staff Physician Signed: 10/25/2024 11:20 Receipt Acknowledged By: 10/25/2024 16:15 /es/ LAXMI LANGFORD RN HEPATOLOGY WEIGHER OPERATOR 10/25/2024 11:38 /es/ OMEGA ELI, DNP, AUTO BRAKE MECHANIC-C, HAND SHAKER NURSE PRACTITIONER RESIDENT 10/25/2024 14:18 /es/ Bud Murillo, PhD, GNP-BC, ANP-BC Nurse Practitioner for YONATHAN CORONEL NIKA SOLOMON [facility] Oct 25, 2024 10:59 AM GASTROENTEROLOGY O UTPATIENT NOTE: LOCAL TITLE: GASTROENTEROLOGY OUTPATIENT FOLLOW UP STL STANDARD TITLE: GASTROENTEROLOGY OUTPATIENT NOTE DATE OF NOTE: OCT 25, 2024@10:59 ENTRY DATE: OCT 25, 2024@10:59:54 AUTHOR: NIKA SOLOMON EXP COSIGNER: URGENCY: STATUS: COMPLETED GASTROENTEROLOGY OUTPATIENT FOLLOW UP STL Has ADDENDA HPI: Jc is a 54-year-old gentleman that came with his daughter for a follow-up visit. 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 Patient has been alcohol abstinent for more than a decade (only occasionally he drinks a glass of wine and special occasions). He remains with overweight, poorly controlled diabetes and hyperlipidemia. He takes medication for systemic hypertension and his blood pressure is well-controlled. Imaging studies have been contradictory. While his liver ultrasound shows fatty infiltration but no evidence to suggest advanced fibrosis or surface nodularity, his latest FibroScan showed a kilopascal score equivalent to stage IV. Blood work shows a long history (about 30 years) of intermittently elevated liver enzymes but without protein synthesis abnormalities or thrombocytopenia. Patient denies any signs or symptoms of advanced liver disease, cirrhosis or decompensation. 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 During his appointment today he had at least 2 episodes. After the seizure he looks somewhat confused and with mild dysarthria. By the time he left my clinic he was feeling well. He left in a wheelchair. ROS: Pseudoseizures. PHYSICIAL EXAMINATION: Vitals: BP 128/77 (10/25/2024 10:32) HR 71 (10/25/2024 10:32) RR 16 (10/25/2024 10:32) WT Measurement DT WEIGHT LB(KG)[BMI] 10/25/2024 10:32 276(125.19)[38*] 09/12/2024 14:35 277.8(126.01)[38*] 08/02/2024 14:14 282.3(128.05)[38*] BMI 37.5 General: well nourished, well developed ambulatory patient Eyes: anicteric with normal reflexes. Oral mucosa: moist, oropharynx clear. Normal dentition. Neck: supple, no JVD or LAD Chest: clear to auscultation bilaterally. Heart RRR. Abdomen: soft, non-tender, non-distended, with no organomegaly or ascites. Normal peristalsis. Extremities: normal pulses and reflexes. No muscle wasting. Neuro: intact Skin: no rashes, no telangiectasia. No palmar erythema. LABS: CBC: WBC 7.3 10*3/uL 04/08/2024 15:28 RBC [...] 15:28 BASOPHILS, ABSOLUTE 0.03 10*3/uL 04/08/2024 15:28 SGOT: 28 U/L (02/23/24 11:19) SGPT: 38 U/L (02/23/24 11:19) Alk Phos: ALKALINE PHOSPHATASE 105 U/L 02/23/2024 11:19 T.Bili TOTAL BILIRUBIN 0.5 mg/dL 02/23/2024 11:19 Collection DT Specimen Test Name Result Units [...] URIC ACID 6 mg/dl 3.5 - 7.2 13.7 mg/dL (04/08/24 15:28) CREATININE 1.59 H mg/dL 04/08/2024 15:28 CREATININE 1.59 H mg/dL 04/08/2024 15:28 EGFR (CKD-EPI 2020) 50.6 04/08/2024 15:28 TSH: No TSH (1YR) EO data found PT:12.5 sec (04/08/24 15:28) INR: INR VALUE 1.1 INR 04/08/2024 15:28 PROTIME 12.5 sec 04/08/2024 15:28 1.1 INR (04/08/24 15:28) Na+: SODIUM 139 mEq/L 04/08/2024 15:28 K+: POTASSIUM 4.3 mEq/L 04/08/2024 15:28 Cl-: 104 mEq/L (04/08/24 15:28) CO2: CARBON DIOXIDE 22 mEq/L 04/08/2024 15:28 BUN: 13.7 mg/dL (04/08/24 15:28) Cr: CREATININE 1.59 H mg/dL 04/08/2024 15:28 Glc: GLUCOSE 234 H mg/dL 04/08/2024 15:28 Prt: PROTEIN 7.6 g/dL 02/23/2024 11:19 Albumin: ALBUMIN 4.1 g/dL 02/23/2024 11:19 RADIOLOGY: Impression for US ABDOMEN LTD, SINGLE ORG OR QUADRANT, 01/15/24, case [id number] 1. Hepatic steatosis. 2. No evidence of cholelithiasis or cholecystitis. Report dictated by Lucien Webster (presidential support specialist) I, Jama Luna, have reviewed the images [...] ABDOMEN W CONT MRI ABDOMEN W/O&W CONT Assessment/Plan: Mr. Haas is a 54-year-old gentleman with Met-ALD. 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 Today I am ordering new blood work to reassess his case. There is some discrepancy between his liver ultrasound, FibroScan and laboratory tests. While the liver ultrasound and laboratory tests are against the diagnosis of cirrhosis, his latest FibroScan showed stage IV fibrosis (cirrhosis). I am ordering blood work today. He will also get a liver ultrasound in the near future. Probably with his next appointment he will need a FibroScan. I discussed with both the patient and his daughter the need of light habit changes including weight loss and in addition, he should have a better control of his diabetes and hyperlipidemia. Please do not hesitate to contact me with any questions or concerns regarding my impression and plan. /los/ NIKA SOLOMON Staff Physician Signed: 10/25/2024 11:20 Receipt Acknowledged By: 10/25/2024 16:15 /es/ LAXMI LANGFORD RN HEPATOLOGY WEIGHER OPERATOR 10/25/2024 11:38 /es/ OMEGA ELI, DNP, AUTO BRAKE MECHANIC-C, HAND SHAKER NURSE PRACTITIONER RESIDENT 10/25/2024 14:18 /es/ Bud Murillo, PhD, GNP-BC, ANP-BC Nurse Practitioner for YONATHAN CORONEL 10/25/2024 ADDENDUM STATUS: COMPLETED Jc had laboratory tests after his clinic visit with me. Results show a very high triglyceride level at 400, hyperglycemia due to decompensated diabetes and mild elevation of AST. Other tests were fundamentally normal including CBC, INR and alpha-fetoprotein. I sent my office note to his PCPs. Patient will need to lose weight, control his diabetes and hyperlipidemia. No specific changes in his liver follow-up and care other than those expressed in the clinic visit note. /los/ NIKA SOLOMON Staff Physician Signed: 10/25/2024 12:51 Receipt Acknowledged By: 10/29/2024 10:00 /los/ LAXMI LANGFORD RN HEPATOLOGY WEIGHER OPERATOR 10/29/2024 ADDENDUM STATUS: COMPLETED I called and spoke to Mrs Haas to review Mr Haas's 10/[address] Solomon's review. Notably pt's triglycerides were 401, while on Ezetimibe. Mr Haas dies not follow a diabetic diet per mr Haas, and has portion control issues. I let her know I would mail him a dietary guidleine sheet for people with high triglycerides, as Mr haas has met with dieticians/sole splitter many times in the past. I asked Mrs Haas to follow up w/ pt's PCP ERNESTO Coronel to address further. I also let Mrs Haas know that Dr Solomon ordered an US abd/Liver, and I scheduled for 11/13/24 at noon, prior to pt's 14:00 Endocrinology appt--NPO after MN. Mrs Haas said that time is fine, as he will sleep until 11:00 anyway . Mrs Haas voiced understanding/agreement to what we discussed. /los/ LAXMI LANGFORD RN HEPATOLOGY WEIGHER OPERATOR Signed: 10/29/2024 10:46 11/15/2024 ADDENDUM STATUS: COMPLETED Liver ultrasound (October,) Liver: The liver echogenicity is diffusely increased with coarsening liver echotexture. The liver surface is smooth. These findings are consistent with hepatic steatosis/chronic liver disease. With the limitations of the study, there was no evidence of HCC. Patient has no ascites. Liver venous inflow and outflow are normal ultrasound. Gallbladder, intra and extrahepatic biliary ducts are normal. Plan: While there is contradiction between the latest FibroScan and the liver ultrasounds, liver tests are against the impression of cirrhosis. For the time being I will continue to follow Mr. De Luna in my clinic. Pending evolution we will decide if he needs a new FibroScan or even a liver biopsy. /los/ NIKA SOLOMON Staff Physician Signed: 11/15/2024 13:11 Receipt Acknowledged By: 11/21/2024 12:41 /los/ LAXMI LANGFORD RN HEPATOLOGY WEIGHER OPERATOR 11/21/2024 ADDENDUM STATUS: COMPLETED I called and spoke to pt's Uyen to review pt's 11/[address] Solomon's review. Will see pt 04/11/25 and decide if new Fibroscan or liver bx would be next step. Uyen voiced agreement to the plan. /los/ LAXMI LANGFORD RN HEPATOLOGY WEIGHER OPERATOR Signed: 11/21/2024 12:52 NIKA SOLOMON [facility]
--- OUTSIDE RECORDS SUMMARY | 2024-11-30 15:31 | XMS_ITS | Encounter Summary ---
Author Name [facility] [place] [facility] [place] Address [address] [place] [address] Care Team Providers Care Intelligence Research Specialist Name Role Phone YONATHAN LINDSAY Primary Care Provider OMEGA Bethea Unavailable Unavailable Selected Encounter This section includes the information on record at [place] for the Encounter. Date/Time Encounter Type Encounter Description Reason Provider Source Jan 15, 2024 11:15 AM OFFICE O/P EST MOD 30 MIN PRIMARY CARE/MEDICINE ICD-10-CM R55 Syncope and collapse IHE Encounter Template Text not used by [place] Assessments - Encounter Diagnoses This section includes the primary and secondary diagnoses documented for the Encounter. Date/Time Primary/Secondary Diagnosis Diagnosis Name Provider Source Jan 15, 2024 01:27 PM PRIMARY Syncope and collapse YONATHAN LINDSAY [facility] Jan 15, 2024 01:27 PM SECONDARY Abrasion, right lower leg, subsequent encounter YONATHAN LINDSAY Kena [facility] Jan 15, 2024 01:27 PM SECONDARY Age-related cataract, morgagnian type, right eye YONATHAN LINDSAY Kena [facility] Jan 15, 2024 01:27 PM SECONDARY Allergic contact dermatitis due to other agents YONATHAN LINDSAY Kena [facility] Jan 15, 2024 01:27 PM SECONDARY Other specified disorders of teeth and supporting structures YONATHAN LNIDSAY [facility] Jan 15, 2024 01:27 PM SECONDARY Type 2 diabetes mellitus with unspecified complications YONATHAN LINDSAY [facility] Jan 15, 2024 01:27 PM SECONDARY Unspecified hearing loss, bilateral YONATHAN LINDSAY [facility] Plan of Treatment: Future Appointments (+ 6 months) and Future Tests (+/- 45 days) The Plan of Treatment section includes future care activities for the patient [facility] [place] [facility] This section includes future appointments and future [...] 30, 2024 10:00 AM AMBULATORY - SURGERY [facility] Jan 30, 2024 03:00 PM AMBULATORY - PSYCHIATRY [facility] Feb 02, 2024 02:30 PM AMBULATORY - PSYCHIATRY [facility] Feb 08, 2024 01:30 PM AMBULATORY - NONE [facility] Feb 13, 2024 10:00 AM AMBULATORY - NONE [facility] Feb 15, 2024 10:00 AM AMBULATORY - MEDICINE [facility] Feb 19, 2024 11:00 AM AMBULATORY - NONE . [facility] Feb 23, 2024 10:30 AM AMBULATORY - MEDICINE [facility] Feb 26, 2024 03:00 PM AMBULATORY - MEDICINE [facility] Mar 05, 2024 03:00 PM AMBULATORY - PSYCHIATRY [facility] Mar 08, 2024 01:00 PM AMBULATORY - PSYCHIATRY [facility] Mar 26, 2024 03:00 PM AMBULATORY - PSYCHIATRY [facility] Apr 03, 2024 11:00 AM AMBULATORY - MEDICINE [facility] Apr 08, 2024 02:00 PM [facility] Apr 09, 2024 01:00 PM AMBULATORY - NONE [facility] Apr 19, 2024 10:00 AM AMBULATORY - NONE [facility] Apr 23, 2024 03:00 PM AMBULATORY - MEDICINE [facility] Apr 29, 2024 01:00 PM AMBULATORY - NONE [facility] Apr 30, 2024 03:00 PM AMBULATORY - PSYCHIATRY [facility] May 03, 2024 10:30 AM AMBULATORY - SURGERY [facility] Active, Pending, and Scheduled Orders [...] ANTITRYPSIN (STL) GREEN LI/HEP BLD/PLAS PLASMA SP [facility] December 19, 2023 12:00 AM Laboratory - Chemistry Order ACTIN (SMOOTHMUSCLE) ANTIBODY IGG GOLD/RED SST SERUM SP [facility] December 19, 2023 12:00 AM Laboratory - Chemistry Order ANTI-MITOCHONDRIAL AB (STL) GOLD/RED SST SERUM SP [facility] December 19, 2023 12:00 AM Laboratory - Chemistry Order CERULOPLASMIN (STL-PB) GOLD/RED SST SERUM [facility] Vital Signs: All taken on the encounter date This section contains inpatient and outpatient Vital Signs collected on the date of the Encounter. Date/Time Temperature Pulse Blood Pressure Respiratory Rate SP02 Pain Height Weight Body Mass Index Source Jan 15, 2024 11:21 AM 97.9 70 130/75 20 95 8 72 278 38 [facility] Social History: Smoking Status [...] 2023 01:09 PM VA-TOBACCO USER EVERY DAY [facility] Tobacco Use History This section includes a history of the smoking, or tobacco-related health factors, that were collected on or before the date of the Encounter. The data comes from the [place] facility where the Encounter took place. Date/Time Smoking Status/Tobacco Use Comment F acility Jul 04, 2023 01:09 PM VA-TOBACCO USE ADVICE [facility] Jul 04, 2023 01:09 PM VA-TOBACCO USE 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 ENGINEER NO [facility] Jul 04, 2023 01:09 PM VA-TOBACCO USE MED NO [facility] Jul 04, 2023 01:09 PM VA-TOBACCO USE WI 30 MIN OF WAKEUP [facility] Jul 04, 2023 01:09 PM VA-TOBACCO USER EVERY DAY [facility] Jul 28, 2022 01:00 PM VA-TOBACCO FORMER USER [facility] Jul 28, 2022 01:00 PM VA-TOBACCO QUIT 15 YRS OR MORE [facility] Jul 13, 2021 01:00 PM VA-TOBACCO DOESNT USE WI 30 MIN WAKEUP [facility] Jul 13, 2021 01:00 PM VA-TOBACCO USE 30 YEARS OR MORE [facility] Jul 13, 2021 01:00 PM VA-TOBACCO USE ADVICE [facility] Jul 13, 2021 01:00 PM VA-TOBACCO USE 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 [facility] Jul 13, 2021 01:00 PM VA-TOBACCO USE MED NO [facility] Jul 13, 2021 01:00 PM VA-TOBACCO USER SOME DAYS [facility] May 20, 2020 03:30 PM VA-TOBACCO DOESNT USE WI 30 MIN WAKEUP [facility] May 20, 2020 03:30 PM VA-TOBACCO USE > 1 5 LESS THAN 30 YEARS [facility] May 20, 2020 03:30 PM VA-TOBACCO USE ADVICE [facility] May 20, 2020 03:30 PM VA-TOBACCO USE 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 [facility] May 20, 2020 03:30 PM VA-TOBACCO USE MED NO [facility] May 20, 2020 03:30 PM VA-TOBACCO USER SOME DAYS [facility] Jun 26, 2018 11:30 AM VA-TOBACCO FORMER USER [facility] Jun 26, 2018 11:30 AM VA-TOBACCO QUIT 15 YRS OR MORE [facility] Mar 02, 2017 07:35 AM QUIT TOBACCO >7 YEARS AGO [facility] May 25, 2016 05:48 AM CURRENT TOBACCO USER [facility] May 25, 2016 05:48 AM TOBACCO MEDS OFFER ED BUT DECLINED [facility] Jun 23, 2015 02:29 PM QUIT TOBACCO >7 YEARS AGO [facility] Sep 12, 2014 06:15 AM CURRENT TOBACCO USER [facility] Sep 12, 2014 06:15 AM QUIT TOBACCO >7 YEARS AGO [facility] Sep 12, 2014 06:15 AM TOBACCO MEDS OFFER ED BUT DECLINED [facility] Jun 25, 2013 02:47 PM QUIT TOBACCO >7 YEARS AGO [facility] May 04, 2010 12:36 PM LIFETIME NON-USER OF TOBACCO [facility] Jul 30, 2009 11:12 AM CURRENT TOBACCO USER [facility] Mar 20, 2008 01:00 PM CURRENT TOBACCO USER [facility] Mar 20, 2008 01:[address] OP SMOKING CLINIC [facility] Mar 20, 2008 01:00 PM TOBACCO OFFERRED P T MEDS (PROVIDER) [facility] Mar 06, 2007 10:38 AM QUIT TOBACCO >7 YEARS AGO [facility] May 09, 2006 09:29 AM CURRENT TOBACCO USER [facility] Aug 27, 2004 10:41 AM CURRENT TOBACCO USER [facility] Aug 27, 2004 10:41 AM SMOKER <10 [facility] Advance Directives: All historical and [...] Source Oct 21, 2022 FRANKLIN KO [facility] Sep 23, 2004 ADVANCE DIRECTIVE EDILECJ [facility] May 24, 2004 ADVANCE DIRECT[address] SA[address]ITCH A [facility] May 24, 2000 ADVANCE DIRECTIVE MICHELE C[facility]ENO [facility] Nov 11, 1996 ADVANCE DIRECTIVE MAGGIE DRAKE [facility] December 08, 1995 ADVANCE DIRECTIVE NATANAELKI [facility] Radiology Reports: +/- 30 days [...] PM US ABDOMEN LIMITED W/BLOOD FLOW DOPPLER: JC HAAS [id number] -1970 M Exm Date: JAN 15, 2024@12:42 Req Phys: KOSTA SOTO Pat Loc: [facility]-GI CONSULT (Req'g Loc) Img Loc: [facility]-ULTRASOUND Service: Unknown [facility] [address] [place] [address] (Case [id number] COMPLETE) US ABDOMEN LTD, SINGLE ORG OR CHRISTIN(US Detailed) CPT:43712 Reason for Study: elevated LFTs (Case [id number] COMPLETE) US BLOOD FLOW ABD/RENAL (LTD) (US Detailed) CPT:29195 Clinical History: Organ to Image: Liver Reason for exam: elevated LFTs Report Status: Verified Date Reported: JAN 15, 2024 Date Verified: JAN 15, 2024 Bosom Presser E-Sig:/ES/DUNIA LUNA Report: CASE #: [id number], [id number] EXAMINATION: Limited sonogram of the right upper [...] cholecystitis. Report dictated by Lucien Ruiz (residential nurse) I, Dunia Luna, have reviewed the images and report and concur with these findings. Primary Interpreting Staff: DUNIA LUNA MD (Bosom Presser) Primary Interpreting Resident: LUCIEN RUIZ MD /DUNIA MARTINES [facility] Jan 01, 2024 07:18 PM ANKLE,RIGHT, 3 VIEWS: SAMINAYOONLESIA KELLY [id number] -1970 M Exm Date: JAN 01, 2024@19:18 Req Phys: MONICA JULES Loc: [facility]-EMERGENCY PRACTICE SPECIALIST (Req'g Img Loc: -MAIN RADIOLOGY SUITE Service: Unknown [facility] [address] [place] [address] (Case [id number] COMPLETE) ANKLE,RIGHT, 3 VIEWS (RAD Detailed) CPT:18188 Proc Modifiers : RIGHT Reason for Study: Clinical History: Right anterior aspect just proximal of mid-point Report Status: Verified Date Reported: JAN 01, 2024 Date Verified: JAN 01, 2024 Bosom Presser E-Sig: Report: KNEE,RIGHT,1 OR 2 VIEWS, TIBIA [...] and ankle. READING PHYSICIAN: Rogelio Alford MD -[id number] 01/01/2024 18:34 PDT [facility] National Teleradiology Program [phone] (For Medical Practitioner Use Only) Attention Patients / Veterans: If you have questions or concerns about these test results, please contact your ordering provider or primary care team. Primary Interpreting Staff: RADIOLOGY,OUTSIDE SERVICE, Staff Physician / RADIOLOGY,OUTSIDE SERVICE [facility] Jan 01, 2024 07:18 PM TIBIA & FIBULA,RIGHT, 2 VIEWS: JC HAAS [id number] -1970 M Ex Date: JAN 01, 2024@19:18 Req Phys: MONICA JULES Loc: [place]-EMERGENCY PRACTICE SPECIALIST (Req'g Img Loc: [place]-MAIN RADIOLOGY SUITE Service: [facility], [facility] [address] [place] [address] (Case [id number] COMPLETE) TIBIA & FIBULA,RIGHT, 2 VIEWS (RAD Detailed) CPT:94042 Proc Modifiers : RIGHT Reason for Study: Right lower leg Clinical History: Right anterior aspect just proximal of mid-point Report Status: Verified Date Reported: JAN 01, 2024 Date Verified: JAN 01, 2024 Bosom Presser E-Sig: Report: KNEE,RIGHT,1 OR 2 VIEWS, TIBIA [...] and ankle. READING PHYSICIAN: Rogelio Alford MD -[id number] 01/01/2024 18:34 PDT [facility] National Teleradiology Program [phone] (For Medical Practitioner Use Only) Attention Patients / Veterans: If you have questions or concerns about these test results, please contact your ordering provider or primary care team. Primary Interpreting Staff: RADIOLOGY,OUTSIDE SERVICE, Staff Physician / RADIOLOGY,OUTSIDE SERVICE [facility] Jan 01, 2024 07:18 PM KNEE,RIGHT,1 OR 2 VIEWS: JC HAAS [id number] -1970 M Exm Date: JAN 01, 2024@19:18 Req Phys: MONICA JULES Loc: -EMERGENCY PRACTICE SPECIALIST (Req'g Img Loc: -MAIN RADIOLOGY SUITE Service: [facility], [facility] [address] [place] [address] (Case [id number] COMPLETE) KNEE,RIGHT,1 OR 2 VIEWS (RAD Detailed) CPT:03313 Proc Modifiers : RIGHT, LATERAL Reason for Study: right lower leg Clinical History: Right anterior aspect just proximal of mid-point Report Status: Verified Date Reported: JAN 01, 2024 Date Verified: JAN 01, 2024 Bosom Presser E-Sig: Report: KNEE,RIGHT,1 OR 2 VIEWS, TIBIA [...] and ankle. READING PHYSICIAN: Rogelio Alford MD -[id number] 01/01/2024 18:34 PDT [facility] National Teleradiology Program [phone] (For Medical Practitioner Use Only) Attention Patients / Veterans: If you have questions or concerns about these test results, please contact your ordering provider or primary care team. Primary Interpreting Staff: RADIOLOGY,OUTSIDE SERVICE, Staff Physician / RADIOLOGY,OUTSIDE SERVICE [facility] Encounter Notes: All associated encounter notes This section contains the clinical notes associated to the Encounter. Date/Time Encounter Note(s) Provider Source Feb 02, 2024 01:43 PM PHYSICIAN LETTERS: LOCAL TITLE: TEST RESULT GENERAL LETTER STL STANDARD TITLE: PHYSICIAN LETTERS DATE OF NOTE: FEB 02, 2024@13:43 ENTRY DATE: FEB 02, 2024@13:43:47 AUTHOR: YONATHAN LINDSAY EXP COSIGNER: URGENCY: STATUS: COMPLETED [facility] [address] [place] [address] FEB 02, 2024 JC HAAS [address] [place], [place] [address] Dear Jc Haas, I would like to update you on your recent test results. VASCULAR LABORATORY: CAROTID DUPLEX EXAMINATION Indication:Syncope Rt ICA:<50% stenosis Rt ICA PSV:104 Rt ICA EDV:41 Rt CCA:Patent Rt CCA PSV:147 Rt CCA EDV:22 Rt ECA:Patent Rt ECA PSV:108 Rt ECA EDV:17 Rt VERT:Antegrade IC/CC RATIO:1.53 Lt ICA:<50% stenosis Lt ICA PSV:118 Lt ICA EDV:41 Lt CCA:Patent Lt CCA PSV:143 Lt CCA EDV:26 Lt ECA:Patent Lt ECA PSV:126 Lt ECA EDV:15 Lt VERT:Antegrade IC/CC RATIO: 1.15 IMPRESSION:there is <50% stenosis of both internal carotid arteries. both external carotid arteries are patent and both vertebral arteries are antegrade. PLAN Please continue your treatment as we discussed during your visit. If you have any questions please call your transplant case manager. I look forward to seeing you at your next clinic appointment. Thank you for choosing the [facility] for your healthcare. FUTURE APPOINTMENTS: 02/02/2024 14:30 [facility] MHC IND TOCHTROP 02/08/2024 13:30 [facility] HW BFB IND PSO 02/13/2024 10:00 [facility] HW ACUP INDIV 02/15/2024 10:00 [facility]-PHONE PHARM PAIN 02/23/2024 10:30 [facility]-HEP LISKER-MELMAN 02/26/2024 15:00 [facility]-PULMONARY DEMIDENKO 03/05/2024 15:00 [facility] PCT HASSAN PSO 04/03/2024 11:00 [facility]-ENDOCRINOLOGY PREPRINT ANALYST 4 04/15/2024 13:00 [facility]-PACT E PREPRINT ANALYST RESIDENT 1 07/18/2024 14:00 [facility]-PACT E PREPRINT ANALYST RESIDENT 1 Sincerely, JENNIFER Chew- NURSE PRACTITIONER JC HAAS,YONATHAN Cain [facility] Jan 15, 2024 01:18 PM PRIMARY CARE NOTE: LOCAL TITLE: PRIMARY CARE PROVIDER ESTABLISHED VISIT [facility] STANDARD TITLE: PRIMARY CARE NOTE DATE OF NOTE: JAN 15, 2024@13:18 ENTRY DATE: JAN 15, 2024@13:18:28 AUTHOR: YONATHAN LINDSAY EXP COSIGNER: URGENCY: STATUS: COMPLETED REASON FOR VISIT/CHIEF COMPLAINT: * Continuing Care* HPI: Patient is a 53 year old WHITE MALE who presents to the clinic for evaluation and management of chronic medical conditions. Patient seen in absence of the primary care provider. Recent hospitalizations/urgent care/ED visits: None SOURCE(S) OF HISTORY: Patient Syncope - weekly - feels light headed before this happens - BP normal during this time - ongoing since at least 2020- couldn't remember exactly when this started - has service dog - CT head- 12/2020- Impression: Unremarkable - CTA neck- 12/2020- There is no evidence for obstruction of either common carotid artery, either subclavian artery or the vertebral arteries in the neck Decreased hearing - feels his hearing is getting worse - cant hear crowds - low noises and shrill noises [employer] physical - he is going with med 18-21 yrs old - he is going with two customer service supervisor and a manufacturing engineer automotive - he does not swim or go up high objects - there is a hospital near by - service dog going Right leg contusion/abrasion - went to ED December 31 - healing well - still has pain but is improving - denies redness, swelling, discharge, fever Dental problem - wants referral for broken tooth top left molar and another tooth on bottom Right eye cataract - wants referral to [facility] in [place] - needs cataract removal T2DM - HgA1C 6.8% 12/12/23 - juana 3 - taking metformin ER 2g daily, ardiance 25mg daily, Ozempic 2mg weekly, glipizide 2.5mg daily - following low sugar low carb diet - went to eye doctor this yr - per vet foot exam at endocrine - [facility] Rash - across trunk that ocurred after increasing dose of naltrexone- rash improving - using betamthasone - denies pain, itching, exudate HLD - taking ezetimibe 10mg daily - following a low fat low cholesterol diet - unable to toelrate statins HTN - BP today 130/75 - not taking any medicatons at this time - DASH diet - monitors at home - denies chest pain, dizziness, lightheadedness, headache, vision changes and dyspnea Vit D deficiency - taking Vit D supp - 44.01 Dec 2023 Constipation - taking docusate, not taking lactulose or miralax any more - colonoscopy- 10 years from JUN 13, 2022 - fiber in diet - hydrating 1/2-1 gallon of water daily - BMs- regularly - followed by [facility] Elevated LFTs/hyperammoniemia - referred for RUQ to further evaluate, chronic liver disease workup - referred to Dr. 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 - taking prazosin 6 mg nightly,trazodone 200 mg at bedtime for insomnia - mood stable - denies SI/HI - followed by [facility] Back pain/knee pain/decreased mobility/fibromyalgia - walks with a walker or cane in the house, uses wheelchair when long walks - uses a service dog that brings him objects and assists with PTSD events - unable to walk long distances - unable to walk up and down stairs without falling - difficulty getting in and out of the bathtub - Reports that he had a ketamine ejection at [facility] on 09/11/2023 for pain - started on naltrexone for pain/fibromyalgia- started rash and constipation - NADA acupuncture - followed by [place] [facility] PAST MEDICAL HISTORY: 1) Abnormal results of liver function studies 2) Diverticulitis comment: S/P PARTIAL COLECTOMY 11/03 3) Erectile dysfunction 4) Obesity 5) Chest pain 6) Sensory-neural hearing loss 7) Back pain (SNOMED CT 975839919) 8) Benign hypertension (SNOMED CT 18156181) 9) Convulsion comment: nonepilepstic psychogenic 10) Male hypogonadism 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 MEDICATIONS: Medication Reconciliation: The essential med list for review which includes the patient's active VA prescriptions and if applicable, remote VA prescriptions, non-VA prescriptions, and discontinued VA prescriptions within the last 90 days and known allergies including local and remote allergies have been reviewed. Active and Recently Outpatient Medications (excluding Supplies): Active Outpatient Medications Status 1) ACCU-CHEK [...] SOFTENING STOOL HOLD FOR LOOSE STOOL/DIARRHEA. 11) EMPAGLIFLOZIN 25MG TAB TAKE ONE TABLET BY MOUTH ONCE ACTIVE A DAY 12) EZETIMIBE 10MG TAB TAKE ONE TABLET BY MOUTH ONCE A ACTIVE DAY TO LOWER CHOLESTEROL 13) FISH OIL 1000MG (500MG DHA/EPA) CAP TAKE TWO CAPSULES ACTIVE BY MOUTH TWICE A DAY TO LOWER TRIGLYCERIDES 14) GLIPIZIDE 5MG TAB TAKE ONE TABLET BY MOUTH TWO TIMES ACTIVE A DAY BEFORE MEALS TAKE 30 MINUTES BEFORE EATING. 15) LIDOCAINE 2.5/PRILOCAINE 2.5% CREAM APPLY LIGHTLY TO ACTIVE AFFECTED AREA(S) TWICE DAILY NEEDED 16) LIDOCAINE 5% PATCH APPLY 1 PATCH TO SKIN SITE NIGHTLY ACTIVE NEEDED FOR PAIN. MAY USE 1-3 PATCHES. PATCHES MAY BE CUT TO FIT ONTO FEET. APPLY PATCH AND PRESS FIRMLY FOR 10-15 SECONDS. KEEP ON FOR 12 HOURS THEN REMOVE PATCH FOR 12 HOURS. 17) METFORMIN HCL 500MG 24HR SA TAB TAKE FOUR TABLETS BY ACTIVE MOUTH ONCE A DAY FOR BLOOD SUGAR CONTROL. TAKE WITH FOOD. AVOID ALCOHOL. DISCONTINUE BEFORE GETTING XRAY DYE. 18) METHYLPREDNISOLONE 4MG TAB DOSEPAK,21 TAKE TABLETS BY ACTIVE MOUTH DIRECTED RASH TAKE 6 TABLETS BY MOUTH ON DAY ONE, THEN DECREASE BY ONE TABLET DAILY UNTIL GONE. TAKE WITH FOOD. 19) NYSTATIN 161784 UNT/GM CREAM APPLY LIBERALLY TO ACTIVE AFFECTED [...] BY MOUTH AT ACTIVE BEDTIME FOR DEPRESSION 26) TRIAMCINOLONE ACETONIDE 0.1% CREAM APPLY SPARINGLY TO ACTIVE AFFECTED AREA(S) TWICE A DAY FOR CONTACT DERMATITIS (EXTERNAL USE ONLY) Pending Outpatient Medications Status 1) BETAMETHASONE DIPROPIONATE 0.05% OINT APPLY LIGHTLY PENDING TO AFFECTED AREA(S) THREE TIMES A DAY (EXTERNAL USE ONLY) 2) PREGABALIN 100MG ORAL CAP TAKE TWO CAPSULES BY MOUTH PENDING EVERY MORNING AND TAKE THREE CAPSULES EVERY EVENING *MAY CAUSE DROWSINESS* Inactive Outpatient Medications Status 1) FLUTICAS 250/SALMETEROL 50 INHL DISK 60 INHALE 1 INHALATION BY ORAL INHALATION TWICE A DAY FOR ASTHMA (OPEN DISKUS; CLICK ONLY ONCE; MAY INHALE TWICE TO COMPLETE DOSE; CLOSE WHEN FINISHED) RINSE MOUTH AND SPIT AFTER EACH USE. Active Non-VA Medications Status 1) Non-VA TRIAMCINOLONE ACETONIDE 0.025% CREAM SPARINGLY ACTIVE TO AFFECTED AREA(S) TWICE A DAY 30 Total Medications REVIEW OF SYSTEMS: General: Normal Ears, Nose, Mouth, Throat: + decreased hearing bilaterally, + broken teeth. Eye: + right eye cataract. Cardiovascular: Normal Respiratory: Normal ABD/GI: Normal Musculoskeletal/Extremities: Normal /TOBACCO STEMMER: Normal Hematology & Lymph: Normal Endocrine: Normal Skin: Normal Neuro: + syncope. Psych: Normal PHYSICAL EXAMINATION: VITALS (most recent, as listed in the electronic record): Temperature: 97.9 F [36.6 C] (01/15/2024 11:21) BP: 130/75 (01/15/2024 11:21) Pulse: 70 (01/15/2024 11:21) Resp: 20 (01/15/2024 11:21) PulsOx: 95% (01/15/2024 11:21) Pain: 8 (01/15/2024 11:21) Weight: Measurement DT WEIGHT LB(KG)[BMI] 01/15/2024 11:21 278(126.10)[38*] 12/19/2023 13:08 278.1(126.14)[38*] 12/14/2023 11:01 276.2(125.28)[38*] General: Well nourished, alert and cooperative, no acute distress, groomed appropriately. Skin: Warm, dry. + RLE healing wound with crust free of exudate and edema. + light pinpoint erythematous rash generalized. Nailbeds pink with no cyanosis or clubbing. Eyes: Eyelids normal without edema or erythema. Mucous membranes moist. Sclera non-icteric. EOM intact, PERRLA. ENT: External ear and ear canal non tender, without exudate, non-erythematous. TM pearly chiu with normal landmarks. Nares patent bilaterally, turbinates pink and moist. Oral mucosa pink and moist. Tongue normal appearance without lesions and with symmetrical movement. Pharynx without erythema or exudate. Neck: Supple without lymphadenopathy, trachea midline, thyroid normal without masses, no carotid bruit. Heart: Rhythm and rate normal. Normal S1/S2. No murmurs, rubs, or gallops. No JVD. Lungs: No respiratory distress. Respirations regular and non-labored. Lung sounds clear to auscultation bilaterally without rales, ronchi, or wheezes. Abdomen: Soft, symmetric, no discoloration, nontender. Normoactive bowel sounds in all four quadrants. No masses, hepatomegaly, splenomegaly, distention, or guarding. : deferred. Musculoskeletal: Full range of motion of all joints. + 2+ cardiovascular tech strength BUE. Neuro: CN II-XII grossly intact, Alert and oriented x4. Speech clear, responds appropriately. Motor function normal. Steady gait. Extremities: No erythema or edema, capillary refill less than 3 seconds in all extremities, pulses 2+ bilaterally. Psych: Appropriate mood and affect, denies SI/HI. No evidence of self-harm. Good insight and judgement. DATA REVIEW: HGA1C 6.8 H % 12/14/2023 11:57 Lipid Panel: TRIGLYCERIDE 349 H mg/dL 09/08/2023 13:42 CHOLESTEROL 189 mg/dL 09/08/2023 13:42 HDL(New) 40 mg/dL 09/08/2023 13:42 DIRECT LDL 94 L mg/dL 09/08/2023 13:42 CALCULATED LDL comment mg/dL 09/08/2023 13:42 ======== CMP: SODIUM 139 mEq/L 12/14/2023 11:58 POTASSIUM 4.4 mEq/L 12/14/2023 11:58 CHLORIDE 105 mEq/L 12/14/2023 11:58 UREA NITROGEN 12.9 mg/dL 12/14/2023 11:58 CREATININE 0.90 mg/dL 12/14/2023 11:58 CALCIUM 9.3 mg/dL 12/14/2023 11:58 PROTEIN 7.7 g/dL 12/14/2023 11:58 ALBUMIN 4.2 g/dL 12/14/2023 11:58 ALKALINE PHOSPHATASE 130 U/L 12/14/2023 11:58 ALT/SGPT 44 H U/L 12/14/2023 11:58 AST/SGOT 32 U/L 12/14/2023 11:58 TOTAL BILIRUBIN 0.5 mg/dL 12/14/2023 11:58 CARBON DIOXIDE 25 mEq/L 12/14/2023 11:58 GLUCOSE 184 H mg/dL 12/14/2023 11:58 EGFR (CKD-EPI 2020) 100.9 12/14/2023 11:58 ========= CBC: WBC 5.9 10*3/uL 12/14/2023 11:58 RBC [...] GRANS, AUTO ABS 0.02 10*3/uL 03/01/2022 15:35 PSA: PROST. SPECIFIC AG.(PB-STL) 0.388 ng/mL 05/15/2023 15:37 Result: Acceptable Follow-up Action: Data results reviewed with patient and/or caregiver. Immunizations: IM - IMMUNIZATIONS ADMINISTERED Immunization Series Date Facility Reaction Info COVID-19 (PFIZER), MRNA, LNP-S, * 2 10/26/2020 [facility]* <C> COVID-19 (PFIZER), MRNA, LNP-S, * 1 10/07/2020 [facility]* <C> INFLUENZA (HISTORICAL) 05/22/1997 [facility]* PNEUMOCOCCAL, UNSPECIFIED FORMUL* 11/23/2011 [facility]* REFUSED PNEUMOVAX (HISTORICAL) 11/12/2004 [facility]* TDAP 12/18/2007 [facility]* <C> CONTRAINDICATED Immunization Date Facility Info INFLUENZA, UNSPECIFIED FORMULATI* 10/06/2023 [facility]* <I> REFUSED ======= Immunization Date Facility Info COVID-19 (MODERNA), MRNA, LNP-S,* 07/28/2022 [facility]* <I> COVID-19 (PFIZER), MRNA, LNP-S, * 01/27/2023 [facility]* <I> COVID-19 (PFIZER), MRNA, LNP-S, * 10/27/2022 [facility]* <I> COVID-19 (PFIZER), MRNA, LNP-S, * 07/28/2022 [facility]* <I> COVID-19 (PFIZER), MRNA, LNP-S, * 11/14/2023 [facility]* <I> COVID-19 (PFIZER), MRNA, LNP-S, * 10/06/2023 [...] 07/28/2022 [facility] <I> PNEUMOCOCCAL CONJUGATE, UNSPECIF* 11/14/2023 [...] FORMULATION 07/28/2022 [facility]* <I> ZOSTER RECOMBINANT 11/14/2023 [facility]* <I> ZOSTER RECOMBINANT 10/06/2023 [facility]* <I> ZOSTER RECOMBINANT 05/15/2023 [facility]* <I> ZOSTER RECOMBINANT 01/27/2023 [facility]* <I> ZOSTER RECOMBINANT 10/27/2022 [facility]* <I> ZOSTER RECOMBINANT 07/28/2022 [facility]* <I> <C> See the Detailed Immunizations Health Summary Component[DIM] for Comments <I> See the Detailed Immunizations Health Summary Component[DIM] for Additional Information * Value is truncated; see the Detailed Immunizations Health Summary Component[DIM] for complete text ASSESSMENT/PLAN: 1. Syncope - discussed precautions of when to go to ED - Carotid doppler study ordered 2. Decreased hearing - audiology number given 3. 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 Right leg contusion/abrasion - improving - discussed signs/symptoms of infection - call/come to office 5. Dental problem - dental consult placed 6. Right eye cataract - opthalmology consult placed 7. T2DM - improving - juana 3 - continue taking metformin ER 2g daily, ardiance 25mg daily, Ozempic 2mg weekly, glipizide 2.5mg daily - following low sugar low carb diet - followed by [facility] 8. Rash - imrpoving - continue using steroid cream 9. HLD - controlled - continue taking ezetimibe 10mg daily - following a low fat low cholesterol diet 10. HTN - stable - DASH diet - monitors at home 11. Vit D deficiency - stable - continue taking Vit D supp 12. Constipation - improving - continue taking docusate, not taking lactulose or miralax any more - continue fiber in diet and water intake - followed by [facility] 13. Elevated LFTs/hyperammoniemia - improving - followed by [facility] 14. Posttraumatic stress disorder/Psychogenic nonepileptic form seizures/ Adjustment disorder with mixed disturbance of emotions and conduct - continue taking prazosin 6 mg nightly,trazodone 200 mg at bedtime for insomnia - mood stable - followed by [facility] 15. Back pain/knee pain/decreased mobility/fibromyalgia - stable - NADA acupuncture - followed by [facility] RETURN TO CLINIC: 6 months 01/30/2024 15:00 [facility] PCT HASSAN PSO 02/02/2024 14:30 [facility] MHC IND TOCHTROP 1 02/08/2024 13:30 [facility] HW BFB IND PSO 02/13/2024 10:00 [facility] HW ACUP INDIV 02/15/2024 10:00 [facility]-PHONE PHARM PAIN 02/23/2024 10:30 [facility]-HEP LISKER-MELMAN 02/26/2024 15:00 [facility]-PULMONARY DEMIDENKO 04/03/2024 11:00 [facility]-ENDOCRINOLOGY PREPRINT ANALYST 4 04/15/2024 13:00 [facility]-PACT E PREPRINT ANALYST RESIDENT 1 07/18/2024 14:00 [facility]-PACT E PREPRINT ANALYST RESIDENT 1 SUMMARY STATEMENT: Plan of care has been discussed with including expected therapeutic benefits and potential side effects of prescribed medication and treatments. [place] verbalizes understanding and is in agreement with the plan of care. Patient was instructed to keep all scheduled appointments and contact pasteurizing machine operator for any additional problems. COVID-19 Immunization: Influenza Immunization: No influenza vaccination was received during the recent influenza season. Herpes Zoster (Shingles) Vaccine: The patient declines to receive the recommended dose of zoster (shingles) vaccine. Immunization: ZOSTER RECOMBINANT Refusal Reason: PATIENT DECISION Patient refuses all immunization(s) in the ZOSTER group Date Documented: 01/19/24 08:39 Ischemic HD/Post TX Follow Up: Patient is taking aspirin from a non-[facility] source. Pneumococcal Conjugate Vaccine (PCV15/PCV20): Refuses PCV vaccine Immunization: PNEUMOCOCCAL CONJUGATE, UNSPECIFIED FORMULATION Refusal Reason: PATIENT DECISION Patient refuses all immunization(s) in the PneumoPCV group Date Documented: 01/19/24 08:39 /los/ MEAGAN Chew NURSE PRACTITIONER Signed: 01/19/2024 08:40 YONATHAN LINDSAY [facility] Jan 15, 2024 11:23 AM NURSING NOTE: LOCAL TITLE: V15 PACT FACE TO FACE NOTE STL STANDARD TITLE: NURSING NOTE DATE OF NOTE: JAN 15, 2024@11:23 ENTRY DATE: JAN 15, 2024@11:23:16 AUTHOR: JESENIATINO Nay EXP COSIGNER: URGENCY: STATUS: COMPLETED Provider Visit: Patient Identifiers : Full Name Date of Reason for visit: Established Follow-Up Mode of Arrival: Ambulatory Allergy Review: NIACIN, SIMVASTATIN, COREG 25MG TABLET, PRAVASTATIN, SHRIMP, ATORVASTATIN ROSUVASTATIN, LOVASTATIN, PITAVASTATIN Allergy list reviewed and remains current. Recent Vital Signs: Temperature: 97.9 F [36.6 C] (01/15/2024 11:21) Pulse: 70 (01/15/2024 11:21) Respiration: 20 (01/15/2024 11:21) B/P: 130/75 (01/15/2024 11:21) Pain: 8 (01/15/2024 11:21) Wt: 278 lb [126.10 kg] (01/15/2024 11:21) Ht: 72 in [182.9 cm] (01/15/2024 11:21) BMI: 37.8 POX: 95% (01/15/2024 11:21) Blood sugar glucometer reading: na Would you like to discuss any personal problem, family problem, alcohol use, drug use, or a mental or emotional illness? No My [facility] ([facility]), please select appointment type: Face to face: Yes- Done Contact provided Primary Care phone number and encouraged to call if any questions or concerns. Review that after hours nurse line [phone] and emergency room are available 20/02 for patient use. Contact verbalized good understanding. Alcohol Use Screen (AUDIT-C): Alcohol Screen: SCREEN FOR ALCOHOL (AUDIT-C) An alcohol screening test (AUDIT-C) was negative (score=1). 1. How often did you have a drink containing alcohol in the past year? Consider a drink to be a 12 ounce can or bottle of regular beer, 8 ounces of malt liquor, a 5 ounce glass of table wine, or a 1.5 ounce shot of liquor (like scotch, gin, or vodka). Monthly or less 2. How many drinks containing alcohol did you have on a typical day when you were drinking in the past year? One or two drinks 3. How often did you have six or more drinks on one occasion in the past year? Never Tobacco Pack Year History: Patient used cigarettes in the past, but quit and does not currently use them: Quit smoking GREATER THAN OR EQUAL to 15 years ago. /es/ OCTOBER Nay BA LPN LICENSED PRACTICAL NURSE Signed: 01/15/2024 11:25 TINO BA [facility]
--- OUTSIDE RECORDS SUMMARY | 2024-11-30 15:31 | XMS_ITS | Encounter Summary ---
Author Name [facility] [place] [facility] [place] Address [address] [place] [address] Care Team Providers Care Lead Miner Blasting Name Role Phone YONATHAN LINDSAY Primary Care Provider OMEGA Bethea Unavailable Unavailable Selected Encounter This section includes the information on record at [place] for the Encounter. Date/Time Encounter Type Encounter Description Reason Pro vider Source IHE Encounter Template Text not used by [place] Advance Directives: All historical and current Section [...] Provider Source Oct 21, 2022 [place] KO [facility] Sep 23, 2004 ADVANCE DIRECTIVE CJ RUDOLPH [facility] May 24, 2004 ADVANCE DIRECTIVE MITCH ZEE IS [facility] May 24, 2000 ADVANCE DIRECTIVE MICHELE CENTENO IS [facility] Nov 11, 1996 ADVANCE DIRECTIVE MAGGIE DRAKE [facility] December 08, 1995 ADVANCE DIRECTIVE KI SANTOYO [facility]
== END 2024-11-30 00:28 | disposition home or self-care (01) ==
PROVIDERS: Emergency Medicine; Emergency Provider Physician Assistant
DX: K59.00 Constipation, unspecified (principal); I10 Essential (primary) hypertension; E11.9 Type 2 diabetes mellitus without complications; K76.9 Liver disease, unspecified; K21.9 Gastro-esophageal reflux disease without esophagitis; G47.30 Sleep apnea, unspecified; M19.90 Unspecified osteoarthritis, unspecified site; M79.7 Fibromyalgia; F43.10 Post-traumatic stress disorder, unspecified; F32.A Depression, unspecified; F41.9 Anxiety disorder, unspecified; Z87.442 Personal history of urinary calculi; Z87.891 Personal history of nicotine dependence; Z90.49 Acquired absence of other specified parts of digestive tract; Z79.4 Long term (current) use of insulin; Z79.84 Long term (current) use of oral hypoglycemic drugs; Z79.899 Other long term (current) drug therapy; Z79.85 Long-term (current) use of injectable non-insulin antidiabetic drugs
CPT/HCPCS: 36415; 74176; 80053; 81003; 83605; 83690; 83735; 85025; 96361; 96374; 96375; 99284; J2270; J2405; J7030